=== PATIENT | female | born 1985 | race Caucasian/White ===

== ENCOUNTER 2018-05-20 01:51 | Emergency (ER) | payer MEDICAID, SELFPAY ==
[2018-05-20 01:55] VITALS: BP 133/98; PULSE 77; RESP 26; O2SAT 99
--- NOTE | 2018-05-20 02:23 | W.ED.GENAD ---
Discharge Plan Disposition Patient Disposition: HOME Condition: Good Discharge Details Chief Complaint: Headache Clinical Impression: Headache, migraine Primary Care Provider: German Campa ED Provider: Devonte Elizabeth Stanley Meds and New Rx's Prescriptions: Continue ropinirole 1 MG tablet 2 mg PO HS RF: 0 omeprazole 20 MG capsule,delayed release(DR/EC) 40 mg PO DAILY RF: 0 cyclobenzaprine 10 MG tablet 10 mg PO PRN PRNRF: 0 dicyclomine 20 MG tablet 20 mg PO QID PRN (Reason: Pain) Qty: 12 RF: 0 ondansetron 4 MG tablet,disintegrating 4 mg PO Q8H PRN (Reason: Nausea / Vomiting) Qty: 6 RF: 0 diphenhydramine HCl 25 MG capsule 25 mg PO Q6H PRN (Reason: Vomiting) Qty: 12 RF: 0 venlafaxine 150 MG capsule,extended release 24hr 150 mg PO BID RF: 0 gabapentin 300 MG capsule 600 mg PO .QHS Qty: 30 RF: 0 acetaminophen [Tylenol] 325 MG tablet 650 mg PO PRN PRNRF: 0 Discharge Instructions Additional Instructions: Go home and rest. Stay hydrated today. Follow-up with primary care as needed. Return to ED for neurologic change, persistent vomiting, worsening headache. Referrals: German Campa PA [Primary Care Provider] - Medical Decision Making Patient has typically responded to IM Phenergan and IM Toradol on previous presentations like this. test is obtained and is negative. Toradol and Phenergan ordered. Patient reevaluated and continues to complain of throbbing headache although reports nausea and vomiting better. She has had allergy to the triptans. Do not wish to use narcotics. Will place IV and give a liter of LR, IV Decadron, oral Tylenol and reevaluate again. Patient sleeping comfortably. When awoke she reports no headache. We will finish the bag of fluids and discharge her home. Medical Records Medical records reviewed: Yes I reviewed the patient's medical records. HPI General Mode of arrival: ambulatory. Date/Time Provider Initiated Documentation: 05/20/18 02:19. Limitations to Documentation: no limitations. Information obtained by: patient. HPI Narrative: Patient presents to ED with migraine headache. Patient has history of same. Onset was tonight and woke her up. Feels like all previous migraine headaches. It is associated with photophobia, nausea, vomiting. She has no neurologic changes. She did not take anything at home prior to coming in. She has not been ill prior to this. Related Data Home Medications Medication Instructions Recorded Confirmed omeprazole 40 mg PO DAILY 12/11/13 05/20/18 cyclobenzaprine 10 mg PO PRN PRN 06/05/15 05/20/18 ropinirole 2 mg PO HS 06/08/15 05/20/18 diphenhydramine HCl 25 mg PO Q6H PRN #12 cap 12/15/16 05/20/18 venlafaxine 150 mg PO BID 12/17/16 05/20/18 gabapentin 600 mg PO .QHS #30 capsule 12/18/16 05/20/18 acetaminophen [Tylenol] 650 mg PO PRN PRN 04/16/17 05/20/18 dicyclomine 20 mg PO QID PRN #12 tab 08/23/17 05/20/18 ondansetron 4 mg PO Q8H PRN #6 tabef 08/23/17 05/20/18 Previous Rx's Medication Instructions Recorded diphenhydramine HCl 25 mg PO Q6H PRN #12 cap 12/15/16 gabapentin 600 mg PO .QHS #30 capsule 12/18/16 dicyclomine 20 mg PO QID PRN #12 tab 08/23/17 ondansetron 4 mg PO Q8H PRN #6 tabef 08/23/17 Allergies Allergy/AdvReac Type Severity Reaction Status Date / Time Penicillins Allergy Severe Swelling Unverified 05/20/18 02:09 in throat granda flavor Allergy Intermediate throat Unverified 05/20/18 02:09 bleeds,swelling kiwi Allergy Intermediate throat Unverified 05/20/18 02:09 swells latex Allergy Mild rash,swelli Unverified 05/20/18 02:09 ng sumatriptan [From Imitrex] AdvReac Mild Headache Unverified 05/20/18 02:09 wool Allergy Mild Skin Rash Uncoded 05/20/18 02:09 General Stated Complaint: Headache IVAN: 3 Review of Systems Constitutional Denies chills, Denies fever(s), Reports headache(s) and Denies weakness Eyes Denies blurry vision, Denies change in vision and Reports photophobia ENT Reports headache(s) and Denies neck pain Cardiovascular Denies chest pain, Denies syncope, Denies palpitations and Denies dyspnea Respiratory Denies cough and Denies dyspnea Gastrointestinal Denies abdominal pain, Denies diarrhea, Reports nausea and Reports vomiting Musculoskeletal Denies abnormal gait, Denies back pain, Denies neck pain and Denies numbness Integumentary/Breasts Denies erythema and Denies rash Neurologic Denies abnormal speech, Denies abnormal gait, Denies syncope, Reports headache(s), Denies focal weakness, Denies numbness, Denies sensory deficit and Denies weakness Endocrine Denies palpitations [facility] Medical History Anxiety BMI 35.0-35.9,adult GERD (gastroesophageal reflux disease) Migraine Pelvic pain in female Restless leg syndrome Right ovarian cyst Social History Smoking/Tobacco Use Status: Current every day Surgical History Diagnostic Laproscopy EGD - MAC (12/16/16) Hysterectomy, Laproscopic (~11/2009) Oophrectomy, Right (06/09/15) R wrist cyst removal Tooth extraction Exam Const General: cooperative and in distress (vomiting and holding head) moderate Orientation: alert and oriented x3 HENMT Head: normocephalic and atraumatic Eyes Pupils: PERRL EOM: EOM intact bilaterally Neck Neck: normal visual inspection, full ROM, trachea midline and supple Resp Effort & Inspection: normal respiratory effort Cardio Rate: regular rate Rhythm: regular rhythm Heart Sounds: S1 normal and S2 normal Skin General skin exam: no rashes or lesions noted Neuro General: alert, oriented x3, no focal motor deficits and CN's II-XI intact bilaterally Sensory Exam: no sensory deficits noted Extrem General: normal to inspection, full ROM and no clubbing, cyanosis or edema Course Vital Signs Pulse 77 05/20/18 01:55 Respiratory Rate 26 H 05/20/18 01:55 Blood Pressure 133/98 H 05/20/18 01:55 Pulse Oximetry 99 05/20/18 01:55 Pulse 77 05/20/18 01:55 Respiratory Rate 26 H 05/20/18 01:55 Respiratory Effort Non-Labored 05/20/18 01:59 Blood Pressure 133/98 H 05/20/18 01:55 Blood Pressure Position Sitting 05/20/18 01:55 Pulse Oximetry 99 05/20/18 01:55 Oxygen Delivery Method Room Air 05/20/18 01:55 Oxygen Flow Rate 0 05/20/18 01:55 Pain Level 10 05/20/18 01:55 Lab/Test Results Lab/Test Results: POC Urine Test Start: 05/20/18 02:09 Freq: Status: Complete Protocol: Document 05/20/18 02:09 BREEZY (Rec: 05/20/18 02:09 [id number]) Test(Urine)-POC POC- Test(urine) Negative POC- Test(urine) Negative
[2018-05-20] MEDS: Ketorolac 60 MG/2 ML VIAL IM (02:29)
[2018-05-20] MEDS: Acetaminophen 500 MG TAB 1000 MG PO (03:53)
[2018-05-20] MEDS: Lactated Ringers 1,000 ML 1000 ML IV (03:53)
[2018-05-20] MEDS: Dexamethasone 10 MG/ML VIAL IVP (03:53)
[2018-05-20 05:31] VITALS: BP 130/95; PULSE 76; RESP 18; TEMP 36.5; O2SAT 97
== END 2018-05-20 05:32 | disposition home or self-care (01) ==
LOC: ER 05:40
PROVIDERS: Emergency Provider Emergency Medicine; PCP Physician Assistant Medical
DX: G43.909 Migraine, unspecified, not intractable, without status migrainosus (principal)
CPT/HCPCS: 81025; 96361; 96372; 96374; 99284; J1100; J1885

== ENCOUNTER 2018-10-01 17:01 | Emergency (ER) | payer MEDICAID, SELFPAY ==
[2018-10-01 17:04] VITALS: BP 138/88; PULSE 87; RESP 16; TEMP 36.9; O2SAT 97
--- NOTE | 2018-10-01 17:12 | W.ED.GENAD ---
Discharge Plan Disposition Patient Disposition: HOME Condition: Improving Discharge Details Chief Complaint: RashLesion Clinical Impression: Cellulitis of perineum Primary Care Provider: German Campa ED Provider: Everett Bray Home Meds and New Rx's Prescriptions: New clindamycin HCl 300 mg capsule 300 mg PO Q6H Qty: 28 RF: 0 Continued ropinirole 1 MG tablet 2 mg PO HS RF: 0 omeprazole 20 MG capsule,delayed release(DR/EC) 40 mg PO DAILY RF: 0 cyclobenzaprine 10 MG tablet 10 mg PO PRN PRNRF: 0 diphenhydramine HCl 25 MG capsule 25 mg PO Q6H PRN (Reason: Vomiting) Qty: 12 RF: 0 venlafaxine 150 MG capsule,extended release 24hr 150 mg PO BID RF: 0 gabapentin 300 MG capsule 600 mg PO .QHS Qty: 30 RF: 0 acetaminophen [Tylenol] 325 MG tablet 650 mg PO PRN PRNRF: 0 prochlorperazine maleate [Compazine] 10 mg Tablet 10 mg PO PRN PRNRF: 0 Discontinued sulfamethoxazole-trimethoprim [Bactrim DS] 800-160 mg Tablet 1 tab PO BID RF: 0 Discharge Instructions Instructions: Cellulitis (ED) Additional Instructions: I discussed your case this evening with Dr. Lou. we agree you should be seen for follow-up tomorrow unless you have significant improvement. Call the office in the morning [phone] for an appointment time. Please stop the Bactrim that was previously prescribed. Begin clindamycin with the next dose 6 hours after discharge from the ED. May apply heat to area for comfort and to speed healing. Return to emerge department if you have abdominal pain, vomiting, or any other acute concerns. Medical Decision Making 33-year-old female presents with right labia majora/perineal inflammation that has been refractive to 2 days of Bactrim. She is afebrile with normal vital signs. She has tenderness at the inferior portion of the right labia majora where it meets the beginning of her perineum. Cannot appreciate Bartholin's gland cyst and cannot rule out underlying deeper abscess versus cellulitis/folliculitis. Therefore patient IV access established, screening laboratories obtained, referred for CT imaging. Diagnostic studies reveal a normal white blood cell count, reassuring chemistries. CT reveals hazy density and stranding of of the right perineum. No evidence of abscess. Patient given parenteral abx (clindamycin gien PCN allergy). Case discussed with Dr Lou. I will switch the patient to Clindamycin orally. She is to call the [facility] office in the AM for a followup appointment tomorrow. Lab Data Lab results reviewed: Yes I reviewed the patient's lab results. Laboratory Results - last 24 hr 10/01/18 10/01/18 17:30 17:30 WBC 6.95 RBC 4.58 Hgb 14.0 Hct 41.8 MCV 91.3 MCH 30.6 MCHC 33.5 RDW 13.8 Plt Count 257 MPV 11.1 H Immature Gran % 0.1 Neutrophils % 66.9 Lymphocytes % 24.5 Monocytes % 7.5 Eosinophils % 0.4 Basophils % 0.6 Absolute Neutrophils 4.65 Absolute Lymphocytes 1.70 Absolute Monocytes 0.52 Absolute Eosinophils 0.03 Absolute Basophils 0.04 Sodium 139 Potassium 4.0 Chloride 102 Carbon Dioxide 26.8 Anion Gap 10.2 BUN 16 Creatinine 1.10 H Estimated GFR/1.73 m2 56.86 Glucose 102 H Calcium 8.7 Total Bilirubin 0.1 L AST 23 ALT 40 Alkaline Phosphatase 142 H Total Protein 7.4 Albumin 3.4 HPI General Mode of arrival: ambulatory. Date/Time Provider Initiated Documentation: 10/01/18 17:07. Limitations to Documentation: no limitations. Information obtained by: patient. History of Present Illness 33 year old F presents to the emergency department with the chief complaint of Abscess R buttock x2 days, on Bactrim, described as moderate, Quality is described as aching and dull, and is localized to the genitals and right. Patient reports no radiation. Patient started experiencing this day(s) and it has been constant. No relieving factors improve symptom(s), No exacerbating factors reported . Patient notes no other symptoms.. Patient did receive the following treatments prior to arrival, none Related Data Home Medications Medication Instructions Recorded Confirmed omeprazole 40 mg PO DAILY 12/11/13 10/01/18 cyclobenzaprine 10 mg PO PRN PRN 06/05/15 10/01/18 ropinirole 2 mg PO HS 06/08/15 10/01/18 diphenhydramine HCl 25 mg PO Q6H PRN #12 cap 12/15/16 10/01/18 venlafaxine 150 mg PO BID 12/17/16 10/01/18 gabapentin 600 mg PO .QHS #30 capsule 12/18/16 10/01/18 acetaminophen [Tylenol] 650 mg PO PRN PRN 04/16/17 10/01/18 clindamycin HCl 300 mg PO Q6H #28 cap 10/01/18 prochlorperazine maleate 10 mg PO PRN PRN 10/01/18 10/01/18 [Compazine] Previous Rx's Medication Instructions Recorded diphenhydramine HCl 25 mg PO Q6H PRN #12 cap 12/15/16 gabapentin 600 mg PO .QHS #30 capsule 12/18/16 clindamycin HCl 300 mg PO Q6H #28 cap 10/01/18 Allergies Allergy/AdvReac Type Severity Reaction Status Date / Time Penicillins Allergy Severe Swelling Unverified 05/20/18 02:09 in throat granda flavor Allergy Intermediate throat Unverified 05/20/18 02:09 bleeds,swelling kiwi Allergy Intermediate throat Unverified 05/20/18 02:09 swells latex Allergy Mild rash,swelli Unverified 05/20/18 02:09 ng naproxen AdvReac Intermediate Nausea Unverified 10/01/18 17:08 sumatriptan [From Imitrex] AdvReac Mild Headache Unverified 05/20/18 02:09 wool Allergy Mild Skin Rash Uncoded 05/20/18 02:09 General Stated Complaint: RashLesion IVAN: 4 Review of Systems Review of Systems 6 systems reviewed and otherwise negative. [facility] Medical History Anxiety BMI 35.0-35.9,adult GERD (gastroesophageal reflux disease) Migraine Pelvic pain in female Restless leg syndrome Right ovarian cyst Surgical History Diagnostic Laproscopy EGD - MAC (12/16/16) Hysterectomy, Laproscopic (~11/2009) Oophrectomy, Right (06/09/15) R wrist cyst removal Tooth extraction Social History Smoking and Tabacco status: Current every day Exam Narrative Exam Narrative: GEN: awake, alert, oriented 3. Pleasant, well groomed, interactive. HEAD: Normocephalic, atraumatic ENT: Mucous membranes moist, oropharynx unremarkable, External ear exam unremarkable EYES: PERRL, EOMI NECK: Full ROM, no KOSTAS, no menigismus CHEST/RESP: Nontender, clear to auscultation bilateral, no wheeze/rhonchi/rales CARDIOVASCULAR: RRR, no murmur, rub tammi. 2+ Rad pulse bilateral ABDOMEN: Soft, nontender, no mass. +Bowel sounds. [facility] exam reveals R inferior labia tenderness, no pointing fluctuance. EXT: Full ROM, no edema, no rash Neuro: Grossly normal neurologic exam, conversant, interactive. Psych: Speech fluent, thoughts congruent, affect normal Course Vital Signs Temperature 36.9 C 10/01/18 17:04 Pulse 87 10/01/18 17:04 Respiratory Rate 16 10/01/18 17:04 Blood Pressure 138/88 10/01/18 17:04 Pulse Oximetry 97 10/01/18 17:04 Temperature 36.9 C 10/01/18 17:04 Temperature Source Temporal Artery Scan 10/01/18 17:04 Pulse 87 10/01/18 17:04 Respiratory Rate 16 10/01/18 17:04 Respiratory Effort Non-Labored 10/01/18 17:06 Blood Pressure 138/88 10/01/18 17:04 Blood Pressure Position Sitting 10/01/18 17:04 Pulse Oximetry 97 10/01/18 17:04 Oxygen Delivery Method Room Air 10/01/18 17:04 Oxygen Flow Rate 0 10/01/18 17:04 Pain Level 8 10/01/18 17:04
--- NOTE | 2018-10-01 17:21 | DI.CT_ITS ---
SYMPTOMS/DIAGNOSIS: RT LABIA MAJORA AND PERINEUM PAIN AND SWELLING CT OF THE PELVIS: CT scan of the pelvis was performed following the uneventful administration of intravenous contrast material. Comparison is 09/25/17. The visualized bowel is unremarkable. There is a normal appendix. No evidence of bowel obstruction is seen. The patient appears to be status post hysterectomy. The urinary bladder is intact. No significant pelvic ascites or free air is seen. There are enlarged lymph nodes seen in the right inguinal region. The largest measures 2.8 x 0.8 cm. There is mild increased attenuation in the fat in the region of the right perineum. No focal fluid collection is seen to suggest an abscess. IMPRESSION: 1. Mild hazy density in the right perineal region. This is nonspecific but may be an infectious or inflammatory process. No abscess is seen. 2. Mildly enlarged lymph nodes in the right inguinal region.
[2018-10-01] MEDS: Ondansetron 4 MG/2 ML VIAL IVP ×2 (17:35→18:16)
[2018-10-01] MEDS: Lactated Ringers 1,000 ML 125 ML IV (17:35)
[2018-10-01] MEDS: Ketorolac 30 MG/ML VIAL IVP (17:40)
[2018-10-01 17:47] LABS: Abs Immature Grans 0.01 k/cumm (0.0-0.09); Absolute Basophil Count 0.04 k/cumm (0.0-0.2); Absolute Eosinophil Count 0.03 k/cumm (0.0-0.7); Absolute Monocyte Count 0.52 k/cumm (0.11-0.7); Absolute Neutrophil Count 4.65 k/cumm (1.2-6.7); Basophils % 0.6; Eosinophils % 0.4; HCT 41.8 % (36.0-46.0); Immature Grans % 0.1; Lymphocytes % 24.5; Mean Corp. HGB Concentration 33.5 g/dL (32.0-36.0); Mean Corpuscular Hemoglobin 30.6 pg (27.0-33.0); Mean Corpuscular Volume 91.3 fL (80-95); Mean Platelet Volume 11.1 fL (8.0-11.0); Monocytes % 7.5; Neutrophils % 66.9; Platelet Count 257 x1000/uL (130-400); RBC 4.58 m/cumm (4.00-5.20); RBC Distribution Width 13.8 % (11.7-14.6); White Blood Cell Count 6.95 k/cumm (4.4-10.8)
[2018-10-01 17:58] LABS: ALT 40 U/L (12-78); AST 23 U/L (15-37); Albumin 3.4 g/dL (3.4-5.0); Alkaline Phosphatase 142 U/L (46-116); Anion Gap 10.2 mmol/L (3-11); BUN 16 mg/dL (7-18); Bilirubin, Total 0.1 mg/dL (0.2-1.0); CO2 26.8 mmol/L (21.0-32.0); Calcium 8.7 mg/dL (8.5-10.1); Chloride 102 mmol/L (98-107); Estimated GFR 56.86 (mL/min/1.73m2); Glucose 102 mg/dL (70-100); Sodium 139 mmol/L (136-145); Total Protein 7.4 g/dL (6.4-8.2)
[2018-10-01] MEDS: Omnipaque 350 MG/ML 100 ML BTL IJ (17:59)
[2018-10-01] MEDS: HYDROmorphone 2 MG/ML VIAL 0.5 MG IVP (18:25)
--- NOTE | 2018-10-01 18:49 | DI.VRAD_ITS ---
EXAM: CT Pelvis With Contrast EXAM DATE/TIME: 10/01/2018 5:22 PM CLINICAL HISTORY: 33 years old, female; Pain; Vaginal pain; Prior surgery; Surgery date: 6+ months; Surgery type: Hysterectomy and left ovary removed in 2009. ; Patient HX: R labia majora, perineum pain and swelling. Pain x4 days, radiates into groin area. Lmp september of 2009. PT sts ? fever x2 days. TECHNIQUE: Axial computed tomography images of the pelvis with intravenous contrast. All CT scans at this facility use at least one of these dose optimization techniques: automated exposure control; mA and/or kV adjustment per patient size (includes targeted exams where dose is matched to clinical indication); or iterative reconstruction. Coronal and sagittal reformatted images were created and reviewed. CONTRAST: Contrast Material: 100 ml of omnipaque 350; Contrast Route: iv COMPARISON: CT ABD PELVIS WITH CONTRAST 09/25/2017 4:19 PM FINDINGS: Stomach and bowel: Visualized small bowel and colon are unremarkable. Appendix: No evidence of appendicitis. Bladder: Normal. No mass. Reproductive: Status post hysterectomy and right oophorectomy. The left adnexa is unremarkable. No adnexal mass. Intraperitoneal space: Unremarkable. No free air. No significant fluid collection. Lymph nodes: Mildly prominent right inguinal lymph nodes, nonspecific. Bones/joints: Unremarkable. No acute fracture. No dislocation. Soft tissues: Minimal hazy density and stranding of the subcutaneous fat just beneath the skin in the right perineum. This may be secondary to infectious or inflammatory change. No abscess. IMPRESSION: 1. Minimal hazy density and stranding of subcutaneous fat just deep the skin in the right perineum, nonspecific. 2. Mildly prominent right inguinal lymph nodes, nonspecific. Dictated and Authenticated by: Danis Daniel MD. Ordering:AMISH Floyd MD
[2018-10-01] MEDS: CLINDAMYCIN 600 MG/50 ML BAG 100 MG IVPB (19:19)
[2018-10-01] MEDS: Normal Saline Flush 10 ML SYR IVP (19:19)
[2018-10-01] MEDS: Clindamycin 300 MG CAP 600 MG PO (19:26)
[2018-10-01 19:51] VITALS: BP 120/79; PULSE 68; RESP 18; TEMP 36.7; O2SAT 96
== END 2018-10-01 19:58 | disposition home or self-care (01) ==
PROVIDERS: Emergency Provider Emergency Medicine; PCP Physician Assistant Medical
DX: L03.315 Cellulitis of perineum (principal)
CPT/HCPCS: 36415; 80053; 96361; 96365; 96375; 96376; 99285; 72193; 85025; 99284; J1885; J2405; J3490

== ENCOUNTER 2018-12-11 16:02 | Outpatient (REF) | payer MEDICAID, SELFPAY ==
[2018-12-11 20:04] LABS: Abs Immature Grans 0.01 k/cumm (0.0-0.09); Absolute Basophil Count 0.05 k/cumm (0.0-0.2); Absolute Eosinophil Count 0.07 k/cumm (0.0-0.7); Absolute Monocyte Count 0.46 k/cumm (0.11-0.7); Absolute Neutrophil Count 4.54 k/cumm (1.2-6.7); Basophils % 0.7; HCT 41.4 % (36.0-46.0); HGB 13.8 g/dL (12.0-15.5); Immature Grans % 0.1; Mean Corp. HGB Concentration 33.3 g/dL (32.0-36.0); Mean Corpuscular Hemoglobin 30.9 pg (27.0-33.0); Mean Corpuscular Volume 92.8 fL (80-95); Mean Platelet Volume 11.6 fL (8.0-11.0); Monocytes % 6.6; Neutrophils % 65.6; Platelet Count 252 x1000/uL (130-400); RBC 4.46 m/cumm (4.00-5.20); RBC Distribution Width 14.4 % (11.7-14.6); White Blood Cell Count 6.93 k/cumm (4.4-10.8)
[2018-12-11 20:38] LABS: ALT 38 U/L (12-78); AST 20 U/L (15-37); Albumin 3.6 g/dL (3.4-5.0); Alkaline Phosphatase 108 U/L (46-116); Anion Gap 10.5 mmol/L (3-11); BUN 12 mg/dL (7-18); Bilirubin, Total 0.3 mg/dL (0.2-1.0); CO2 25.5 mmol/L (21.0-32.0); Calcium 8.8 mg/dL (8.5-10.1); Chloride 103 mmol/L (98-107); Glucose 80 mg/dL (70-100); Lipase 64 U/L (73-393); Magnesium 1.9 mg/dL (1.8-2.4); Sodium 139 mmol/L (136-145); Total Protein 6.7 g/dL (6.4-8.2)
[2018-12-12 14:47] LABS: Amylase 40 U/L (25-115)
== END 2018-12-11 16:22 ==
LOC: NCHCN 16:02
PROVIDERS: PCP Physician Assistant Medical; Visit Provider Physician Assistant Medical
DX: R10.10 Upper abdominal pain, unspecified (principal); G25.81 Restless legs syndrome
CPT/HCPCS: 80053; 83690; 82150; 83735; 85025

== ENCOUNTER 2018-12-22 00:58 | Outpatient (CLI) | payer MEDICAID, SELFPAY ==
--- NOTE | 2018-12-22 09:10 | DI.US_ITS ---
SYMPTOM/DIAGNOSIS: UPPER ABD PAIN, R10.10 ABDOMEN ULTRASOUND: Comparison CT scan is 09/25/17. The aorta and IVC are unremarkable. The liver measures 18 cm. in length. No hepatic mass is present. The gallbladder is negative. There is no biliary ductal dilatation. The pancreas is unremarkable as are the spleen and kidneys. There is a 3.5 by 1.3 by 3.3 cm. area in the supraumbilical region isoechoic to the surrounding fat. No peristalsis is seen. No internal blood flow is present. IMPRESSION: 1. Mild hepatomegaly. 2. No evidence of cholelithiasis or biliary ductal dilatation. 3. 3.5 cm. subcutaneous mass-like region isoechoic to the adjacent subcutaneous fat in the supraumbilical region. This may represent lipoma or possible fat containing hernia. CT scan of the abdomen may be considered for further evaluation.
== END 2018-12-22 01:18 ==
PROVIDERS: PCP Physician Assistant Medical; Visit Provider Physician Assistant Medical
DX: R10.11 Right upper quadrant pain (principal); R16.0 Hepatomegaly, not elsewhere classified; R19.05 Periumbilic swelling, mass or lump
CPT/HCPCS: 76700

== ENCOUNTER 2019-03-11 17:34 | Emergency (ER) | payer MEDICAID, SELFPAY ==
[2019-03-11] VITALS (39 sets, daily range): BP systolic 119–143; BP diastolic 80–105; PULSE 53–80; RESP 20; TEMP 36.3; O2SAT 96–100
--- NOTE | 2019-03-11 17:43 | ED.GENADUL_ITS ---
Discharge Plan Disposition Patient Disposition: HOME Condition: Stable Discharge Details Chief Complaint: Abd Prob Clinical Impression: Abdominal pain, Hematuria, Breast nodule Primary Care Provider: German Campa ED Provider: Margaret Doyle Home Meds and New Rx's Prescriptions: Continued ropinirole 1 MG tablet 2 mg PO HS RF: 0 omeprazole 20 MG capsule,delayed release(DR/EC) 40 mg PO DAILY RF: 0 cyclobenzaprine 10 MG tablet 10 mg PO PRN PRNRF: 0 diphenhydramine HCl 25 MG capsule 25 mg PO Q6H PRN (Reason: Vomiting) Qty: 12 RF: 0 venlafaxine 150 MG capsule,extended release 24hr 150 mg PO BID RF: 0 gabapentin 300 MG capsule 600 mg PO .QHS Qty: 30 RF: 0 acetaminophen [Tylenol] 325 MG tablet 650 mg PO PRN PRNRF: 0 Discharge Instructions Instructions: Hematuria (ED), Abdominal Pain (ED) Additional Instructions: Please return immediately to the emergency department if you develop any new or worsening symptoms or if you become otherwise concerned. It is extremely important that you call as soon as possible to make an appointment to be seen in follow-up for this visit by your primary care doctor. In addition to follow-up for your abdominal pain, you were also noted to have blood in your urine and also a breast nodule on CT scan. Both of these findings will require outpatient follow-up. Stand Alone Forms: Work Release Referrals: German Campa PA [Primary Care Provider] - Discharge Data Discharge Date/Time-TO BE ENTERED AT DEPARTURE: 03/11/19 23:17 Medical Decision Making Estrella Oliver is a 34-year-old woman with a history of anxiety, bipolar disease, GERD, hernia repair, hysterectomy who presented to the emergency department with sudden onset upper abdominal pain after bending over. On exam patient is nontoxic-appearing but does appear uncomfortable. Abdominal exam with focal tender tenderness of the upper middle abdomen with light palpation. Concern for bowel obstruction, abdominal muscle pain, gastritis, pancreatitis, other. Exam/history is not consistent with ACS, sepsis, acute aortic pathology, mesenteric ischemia. Plan for screening labs, IV pain control, IV fluid hydration, likely CT abdomen pelvis. Labs nondiagnostic. CT shows abnormality of the colon wall, normal finding versus colitis. Patient's clinical presentation not consistent with colitis. Fat-containing umbilical hernia seen on prior. Exam/history is not consistent with incarcerated hernia at this time. Incidental findings of hematuria (urine culture sent, exam/history not consistent with UTI), left breast nodule. I discussed incidental findings with the patient and reports of outpatient follow- up for these. Patient reporting symptoms improved on reassessment appears comfortable, well and nontoxic. I had a lengthy discussion with the patient regarding return to emergency department precautions, home care, importance of outpatient follow-up. Patient verbalized understanding the plan was amenable. All questions were answered. Patient was discharged home with clear plan for outpatient follow-up. Medical Records Medical records reviewed: Yes I reviewed the patient's medical records. Imaging Data Radiologic Study: Attestation: I personally reviewed and interpreted this imaging study as follows: Radiologist's impression: EXAM: CT Abdomen and Pelvis With Contrast EXAM DATE/TIME: 03/11/2019 7:27 PM CLINICAL HISTORY: 34 years old, female; Abdominal pain; Generalized; Prior surgery; Surgery date: 6+ months; Surgery type: Hysterectomy, hernia repair; Additional info: Ventral hernia TECHNIQUE: Imaging protocol: Axial computed tomography images of the abdomen and pelvis with intravenous contrast. Coronal and sagittal reformatted images were created and reviewed. Radiation optimization: All CT scans at this facility use at least one of these dose optimization techniques: automated exposure control; mA and/or kV adjustment per patient size (includes targeted exams where dose is matched to clinical indication); or iterative reconstruction. Contrast material: [id number];Contrast volume: 100 ml;Contrast route: IV LAC 20G; COMPARISON: CT pelvic w 10/01/2018 5:48 PM . 09/25/2017 FINDINGS: Mediastinum: Gas in the distal esophagus which can be seen with reflux. Liver: Normal. No mass. Gallbladder and bile ducts: Normal. No calcified stones. No ductal dilation. Pancreas: Normal. No ductal dilation. Spleen: Normal. No splenomegaly. Adrenals: Normal. No mass. Kidneys and ureters: Normal. No hydronephrosis. Stomach and bowel: Heterogeneous contents in the stomach, favored to be related to ingested products. No obstruction. Moderate amount of stool in the colon which can be seen with constipation. The cecum is in the right upper quadrant which can be seen with wandering cecum. There is some wall prominence to the proximal ascending colon(series 4 image 47). Appendix: No evidence of appendicitis. Intraperitoneal space: Normal. No free air. No significant fluid collection. Vasculature: Normal. No abdominal aortic aneurysm. Lymph nodes: Normal. No enlarged lymph nodes. Bladder: Unremarkable as visualized. Reproductive: Uterus not identified. No large adnexal masses. Bones/joints: No acute fracture. No dislocation. Soft tissues: Small fat-containing umbilical hernia. There is some stranding within this hernia, similar to prior exam. Incompletely imaged asymmetric nodular density in the left breast, series 4 image 1. IMPRESSION: 1. No obstruction. Some wall prominence in the proximal ascending colon which may be related to underdistention but should be correlated with any concern for colitis. 2. Small fat-containing umbilical hernia. There is some stranding of the fat within this hernia. This is favored to be chronic as it was present on prior exam. However, correlation with any concern for incarceration suggested. 3. Incompletely imaged asymmetric nodular density in the left breast. This may be secondary to slice acquisition. If there is concern for nodule based on physical exam findings, non-emergent ultrasound could be considered. Other findings/details as above. Lab Data Lab results reviewed: Yes I reviewed the patient's lab results. 03/11/19 19:20 Urine - Reflex from Ua Urine Culture - Pending Laboratory Tests Range/Units 03/11/19 03/11/19 03/11/19 18:23 18:23 18:23 WBC (4.4-10.8) k/cumm 7.51 RBC (4.00-5.20) m/cumm 4.53 Hgb (12.0-15.5) g/dL 14.1 Hct (36.0-46.0) % 42.3 MCV (80-95) fL 93.4 MCH (27.0-33.0) pg 31.1 MCHC (32.0-36.0) g/dL 33.3 RDW (11.7-14.6) % 13.7 Plt Count (130-400) x1000/uL 240 MPV (8.0-11.0) fL 11.2 H Immature Gran % 0.1 Neutrophils % 62.8 Lymphocytes % 28.1 Monocytes % 6.5 Eosinophils % 1.7 Basophils % 0.8 Absolute Neutrophils (1.2-6.7) k/cumm 4.71 Absolute Lymphocytes (1.2-3.4) k/cumm 2.11 Absolute Monocytes (0.11-0.7) k/cumm 0.49 Absolute Eosinophils (0.0-0.7) k/cumm 0.13 Absolute Basophils (0.0-0.2) k/cumm 0.06 Sodium (136-145) mmol/L 142 Potassium (3.5-5.1) mmol/L 3.6 Chloride (98-107) mmol/L 106 Carbon Dioxide (21.0-32.0) mmol/L 26.3 Anion Gap (3-11) mmol/L 9.7 BUN (7-18) mg/dL 12 Creatinine (0.55-1.02) mg/dL 1.13 H Estimated GFR/1.73 m2 (mL/min/1.73m2) 54.80 Glucose (70-100) mg/dL 86 Lactate (0.6-1.4) mmol/L 1.1 Calcium (8.5-10.1) mg/dL 8.7 Total Bilirubin (0.2-1.0) mg/dL 0.2 AST (15-37) U/L 15 ALT (12-78) U/L 27 Alkaline Phosphatase (46-116) U/L 98 Total Protein (6.4-8.2) g/dL 6.9 Albumin (3.4-5.0) g/dL 3.3 L Urine Color (Yellow) Urine Clarity (Clear) Urine pH (5-8) Ur Specific [place] (1.005-1.025) Urine Protein (Negative) mg/dL Urine Ketones (Negative) mg/dL Urine Blood (Negative) Urine Nitrite (Negative) Urine Bilirubin (Negative) Urine Urobilinogen (Up TO 0.2) EU/dL Ur Leukocyte Esterase (Negative) Urine RBC (0-2) Urine WBC (0-5) HPF Ur Epithelial Cells (Negative) HPF Urine Crystals (Negative) HPF Urine Bacteria (Negative) HPF Urine Casts (Negative) LPF Urine Mucus (Negative) Urine Other (Negative) Ur Culture Indicated? Urine Glucose (Negative) mg/dL Range/Units 03/11/19 19:20 WBC (4.4-10.8) k/cumm RBC (4.00-5.20) m/cumm Hgb (12.0-15.5) g/dL Hct (36.0-46.0) % MCV (80-95) fL MCH (27.0-33.0) pg MCHC (32.0-36.0) g/dL RDW (11.7-14.6) % Plt Count (130-400) x1000/uL MPV (8.0-11.0) fL Immature Gran % Neutrophils % Lymphocytes % Monocytes % Eosinophils % Basophils % Absolute Neutrophils (1.2-6.7) k/cumm Absolute Lymphocytes (1.2-3.4) k/cumm Absolute Monocytes (0.11-0.7) k/cumm Absolute Eosinophils (0.0-0.7) k/cumm Absolute Basophils (0.0-0.2) k/cumm Sodium (136-145) mmol/L Potassium (3.5-5.1) mmol/L Chloride (98-107) mmol/L Carbon Dioxide (21.0-32.0) mmol/L Anion Gap (3-11) mmol/L BUN (7-18) mg/dL Creatinine (0.55-1.02) mg/dL Estimated GFR/1.73 m2 (mL/min/1.73m2) Glucose (70-100) mg/dL Lactate (0.6-1.4) mmol/L Calcium (8.5-10.1) mg/dL Total Bilirubin (0.2-1.0) mg/dL AST (15-37) U/L ALT (12-78) U/L Alkaline Phosphatase (46-116) U/L Total Protein (6.4-8.2) g/dL Albumin (3.4-5.0) g/dL Urine Color (Yellow) Yellow Urine Clarity (Clear) Clear Urine pH (5-8) 5.5 Ur Specific [place] (1.005-1.025) >= 1.030 H Urine Protein (Negative) mg/dL 30 H Urine Ketones (Negative) mg/dL Negative Urine Blood (Negative) Moderate H Urine Nitrite (Negative) Negative Urine Bilirubin (Negative) Negative Urine Urobilinogen (Up TO 0.2) EU/dL 1.0 H Ur Leukocyte Esterase (Negative) Trace H Urine RBC (0-2) 10-20 H Urine WBC (0-5) HPF 20-50 Ur Epithelial Cells (Negative) HPF Moderate Urine Crystals (Negative) HPF Negative Urine Bacteria (Negative) HPF Few Urine Casts (Negative) LPF Negative Urine Mucus (Negative) Negative Urine Other (Negative) Many transitional Ur Culture Indicated? Yes Urine Glucose (Negative) mg/dL Negative HPI General Mode of arrival: ambulatory . Date/Time Provider Initiated Documentation: 03/11/19 17:42 . Limitations to Documentation: no limitations . Information obtained by: patient, RN notes reviewed and old records reviewed . HPI Narrative: Estrella Oliver is a 34 y/o woman with h/o GERD, anemia, anxiety, bipolar presenting to the emergency department with abdominal pain. Patient reports that she has had increasing abdominal distention over the past month. Patient reports that she was bending over while at work today and felt a sudden pop in her middle upper abdomen. Patient reports that she has had severe pain since that time and she has vomited several times. Patient reports chronic constipation that is unchanged from baseline. She reports history of hernia repair in the past, hysterectomy. Patient reports that she was previously in her usual state of health. No recent illness. No recent travel. Previously was eating and drinking as usual. She denies any other pain, fever, cough, shortness of breath, numbness/weakness the extremities. Related Data Home Medications Medication Instructions Recorded Confirmed omeprazole 40 mg PO DAILY 12/11/13 03/11/19 cyclobenzaprine 10 mg PO PRN PRN 06/05/15 03/11/19 ropinirole 2 mg PO HS 06/08/15 03/11/19 diphenhydramine HCl 25 mg PO Q6H PRN #12 cap 12/15/16 03/11/19 venlafaxine 150 mg PO BID 12/17/16 03/11/19 gabapentin 600 mg PO .QHS #30 capsule 12/18/16 03/11/19 acetaminophen [Tylenol] 650 mg PO PRN PRN 04/16/17 03/11/19 Previous Rx's Medication Instructions Recorded diphenhydramine HCl 25 mg PO Q6H PRN #12 cap 12/15/16 gabapentin 600 mg PO .QHS #30 capsule 12/18/16 Allergies Allergy/AdvReac Type Severity Reaction Status Date / Time Penicillins Allergy Severe Swelling Unverified 03/11/19 17:40 in throat granda flavor Allergy Intermediate throat Unverified 03/11/19 17:40 bleeds,swelling kiwi Allergy Intermediate throat Unverified 03/11/19 17:40 swells latex Allergy Mild rash,swelli Unverified 03/11/19 17:40 ng naproxen AdvReac Intermediate Nausea Unverified 03/11/19 17:40 sumatriptan [From Imitrex] AdvReac Mild Headache Unverified 03/11/19 17:40 wool Allergy Mild Skin Rash Uncoded 03/11/19 17:40 General Stated Complaint: Abd Prob IVAN: 3 Review of Systems Review of Systems Constitutional: denies fevers Eyes: denies eye pain ENT: denies facial pain, dental pain, sore throat Cardiovascular: denies chest pain Respiratory: denies SOB, cough GI: denies diarrhea, reports abdominal pain, vomiting, constipation : denies flank pain MSK: denies back pain, neck pain, arthralgias, myalgias Skin: denies rash Neuro: denies headaches, numbness, weakness PFSH Medical History Anxiety BMI 35.0-35.9,adult GERD (gastroesophageal reflux disease) Migraine Pelvic pain in female Restless leg syndrome Right ovarian cyst Social History Smoking/Tobacco Use Status: Current every day Alcohol Intake: current Alcohol Intake frequency: a few times a week Drug use: Daily Substance use type: marijuana Do you feel safe at home: Yes Do you feel safe in your relationship?: Yes Exam Narrative Exam Narrative: Constitutional: well and [id number], appears uncomfortable, pleasant, conversing normally HENT: head atraumatic/normocephalic/normal inspection, mucous membranes moist Eyes: conjunctiva normal, sclera normal, pupils 3mm b/l Neck: no stridor, normal ROM, trachea midline Chest: normal inspection Resp: normal work of breathing, LCTAB Cardio: normal rate, normal rhythm, no murmur appreciated GI: abdomen soft, abdominal wall tender to palpation in the upper middle abdomen without overlying skin changes, abdomen otherwise nontender to palpation, non- distended, no mass Back: normal inspection, no rash Skin: warm, dry, normal color, no rash Neuro: alert, not altered, grossly non-focal, normal tone Ext: no edema Psych: normal mood, normal affect, normal behavior Course Vital Signs Temperature 36.3 C L 03/11/19 17:38 Pulse 80 03/11/19 17:38 Respiratory Rate 20 03/11/19 17:38 Blood Pressure 136/83 03/11/19 17:38 Pulse Oximetry 97 03/11/19 17:38 Temperature 36.3 C L 03/11/19 17:38 Temperature Source Temporal Artery Scan 03/11/19 17:38 Pulse 80 03/11/19 17:38 Respiratory Rate 20 03/11/19 17:38 Blood Pressure 136/83 03/11/19 17:38 Blood Pressure Position Sitting 03/11/19 17:38 Pulse Oximetry 97 03/11/19 17:38 Oxygen Delivery Method Room Air 03/11/19 17:38 Oxygen Flow Rate 0 03/11/19 17:38 Pain Level 10 03/11/19 17:38
[2019-03-11] MEDS: Normal Saline 1,000 ML 1000 ML IV ×2 (18:23→20:00)
[2019-03-11] MEDS: Ondansetron 4 MG/2 ML VIAL IVP ×2 (18:27→20:00)
[2019-03-11 18:33] LABS: Abs Immature Grans 0.01 k/cumm (0.0-0.09); Absolute Basophil Count 0.06 k/cumm (0.0-0.2); Absolute Eosinophil Count 0.13 k/cumm (0.0-0.7); Absolute Lymphocyte Count 2.11 k/cumm (1.2-3.4); Absolute Monocyte Count 0.49 k/cumm (0.11-0.7); Absolute Neutrophil Count 4.71 k/cumm (1.2-6.7); Basophils % 0.8; Eosinophils % 1.7; HCT 42.3 % (36.0-46.0); HGB 14.1 g/dL (12.0-15.5); Immature Grans % 0.1; Lymphocytes % 28.1; Mean Corp. HGB Concentration 33.3 g/dL (32.0-36.0); Mean Corpuscular Hemoglobin 31.1 pg (27.0-33.0); Mean Corpuscular Volume 93.4 fL (80-95); Mean Platelet Volume 11.2 fL (8.0-11.0); Monocytes % 6.5; Neutrophils % 62.8; Platelet Count 240 x1000/uL (130-400); RBC 4.53 m/cumm (4.00-5.20); RBC Distribution Width 13.7 % (11.7-14.6); White Blood Cell Count 7.51 k/cumm (4.4-10.8)
[2019-03-11 18:35] LABS: Lactate 1.1 mmol/L (0.6-1.4)
[2019-03-11 19:00] LABS: ALT 27 U/L (12-78); AST 15 U/L (15-37); Albumin 3.3 g/dL (3.4-5.0); Alkaline Phosphatase 98 U/L (46-116); BUN 12 mg/dL (7-18); Bilirubin, Total 0.2 mg/dL (0.2-1.0); CO2 26.3 mmol/L (21.0-32.0); CREATININE 1.13 mg/dL (0.55-1.02); Calcium 8.7 mg/dL (8.5-10.1); Chloride 106 mmol/L (98-107); Glucose 86 mg/dL (70-100); Potassium 3.6 mmol/L (3.5-5.1); Total Protein 6.9 g/dL (6.4-8.2)
--- NOTE | 2019-03-11 19:26 | DI.CT_ITS ---
SYMPTOM/DIAGNOSIS: VENTRAL HERNIA, ABDOMINAL PAIN ABDOMINAL AND PELVIC CT: 03/11 CT examination of the abdomen and pelvis was performed with a bolus infusion of 100 cc omnipaque 350 and ingestion of dilute Barium. Note is made of asymmetric radiodensity in the left breast. Mammography recommended for further evaluation. Visualized lungs are clear. Liver, spleen and pancreas appear normal. Gallbladder and bile ducts are normal. Adrenals and kidneys are normal. Abdominal aorta and major vessels are unremarkable in appearance. Small fat containing umbilical hernia noted. Appendix is normal. No bowel obstruction or diverticulitis. Question subtle wall thickening of portion of ascending colon, colitis not excluded. CONCLUSION: 1. Incidental left breast finding, mammography recommended for further evaluation. 2. Question localized wall thickening of portion of ascending colon, colitis not excluded. 3. Umbilical hernia, no bowel contents or evidence of significant inflammation.
[2019-03-11 19:29] LABS: Bilirubin Negative (Negative); Blood Moderate (Negative); Clarity Clear (Clear); Glucose Negative (Negative); Ketones Negative (Negative); Leukocyte Esterase Trace (Negative); Nitrite Negative (Negative); Specific Gravity >= 1.030 (1.005-1.025); pH 5.5 (5-8)
[2019-03-11 19:38] LABS: WBC 20-50 HPF (0-5)
[2019-03-11 19:39] LABS: Bacteria Few HPF (Negative); C & S Indicated? Yes; Casts Negative LPF (Negative); Crystals Negative HPF (Negative); Epithelial Cells Moderate HPF (Negative); Mucus Negative (Negative)
[2019-03-11] MEDS: Omnipaque 350 MG/ML 50 ML BTL IJ (19:49)
[2019-03-11 21:15] LABS: Anion Gap 9.7 mmol/L (3-11)
[2019-03-11] MEDS: Omnipaque 350 MG/ML 100 ML BTL IJ (21:17)
--- NOTE | 2019-03-11 22:42 | DI.VRAD_ITS ---
EXAM: CT Abdomen and Pelvis With Contrast EXAM DATE/TIME: 03/11/2019 7:27 PM CLINICAL HISTORY: 34 years old, female; Abdominal pain; Generalized; Prior surgery; Surgery date: 6+ months; Surgery type: Hysterectomy, hernia repair; Additional info: Ventral hernia TECHNIQUE: Imaging protocol: Axial computed tomography images of the abdomen and pelvis with intravenous contrast. Coronal and sagittal reformatted images were created and reviewed. Radiation optimization: All CT scans at this facility use at least one of these dose optimization techniques: automated exposure control; mA and/or kV adjustment per patient size (includes targeted exams where dose is matched to clinical indication); or iterative reconstruction. Contrast material: [id number];Contrast volume: 100 ml;Contrast route: IV LAC 20G; COMPARISON: CT pelvic w 10/01/2018 5:48 PM . 09/25/2017 FINDINGS: Mediastinum: Gas in the distal esophagus which can be seen with reflux. Liver: Normal. No mass. Gallbladder and bile ducts: Normal. No calcified stones. No ductal dilation. Pancreas: Normal. No ductal dilation. Spleen: Normal. No splenomegaly. Adrenals: Normal. No mass. Kidneys and ureters: Normal. No hydronephrosis. Stomach and bowel: Heterogeneous contents in the stomach, favored to be related to ingested products. No obstruction. Moderate amount of stool in the colon which can be seen with constipation. The cecum is in the right upper quadrant which can be seen with wandering cecum. There is some wall prominence to the proximal ascending colon(series 4 image 47). Appendix: No evidence of appendicitis. Intraperitoneal space: Normal. No free air. No significant fluid collection. Vasculature: Normal. No abdominal aortic aneurysm. Lymph nodes: Normal. No enlarged lymph nodes. Bladder: Unremarkable as visualized. Reproductive: Uterus not identified. No large adnexal masses. Bones/joints: No acute fracture. No dislocation. Soft tissues: Small fat-containing umbilical hernia. There is some stranding within this hernia, similar to prior exam. Incompletely imaged asymmetric nodular density in the left breast, series 4 image 1. IMPRESSION: 1. No obstruction. Some wall prominence in the proximal ascending colon which may be related to underdistention but should be correlated with any concern for colitis. 2. Small fat-containing umbilical hernia. There is some stranding of the fat within this hernia. This is favored to be chronic as it was present on prior exam. However, correlation with any concern for incarceration suggested. 3. Incompletely imaged asymmetric nodular density in the left breast. This may be secondary to slice acquisition. If there is concern for nodule based on physical exam findings, non-emergent ultrasound could be considered. Other findings/details as above. Dictated and Authenticated by: Estrella Vargas MD. Ordering:PETER Robles MD
[2019-04-09 12:43] LABS: Sodium 142 mmol/L (136-145)
== END 2019-03-11 23:17 | disposition home or self-care (01) ==
PROVIDERS: Emergency Provider Student in an Organized Health Care Education/Training Program; PCP Physician Assistant Medical
DX: R10.33 Periumbilical pain (principal); R31.9 Hematuria, unspecified; N63.20 Unspecified lump in the left breast, unspecified quadrant; R11.2 Nausea with vomiting, unspecified
CPT/HCPCS: 36415; 80053; 87077; 96361; 96374; 96375; 96376; 99285; 74177; 81003; 81015; 83605; 85025; 87086; 99284; J2405; J3490; Q9967

== ENCOUNTER 2019-03-16 10:38 | Emergency (ER) | payer MEDICAID, SELFPAY ==
[2019-03-16 10:43] VITALS: BP 135/83; PULSE 101; RESP 18; TEMP 36.5; O2SAT 96
[2019-03-16] MEDS: Normal Saline 1,000 ML 1000 ML IV (10:55)
[2019-03-16] MEDS: Ondansetron O.D.T. 4 MG TABEF PO (11:05)
[2019-03-16 11:07] LABS: Abs Immature Grans 0.01 k/cumm (0.0-0.09); Absolute Basophil Count 0.06 k/cumm (0.0-0.2); Absolute Eosinophil Count 0.11 k/cumm (0.0-0.7); Absolute Monocyte Count 0.41 k/cumm (0.11-0.7); Basophils % 0.9; Eosinophils % 1.7; HCT 46.1 % (36.0-46.0); HGB 15.4 g/dL (12.0-15.5); Immature Grans % 0.2; Lymphocytes % 26.2; Mean Corp. HGB Concentration 33.4 g/dL (32.0-36.0); Mean Corpuscular Hemoglobin 30.9 pg (27.0-33.0); Mean Corpuscular Volume 92.6 fL (80-95); Mean Platelet Volume 11.4 fL (8.0-11.0); Monocytes % 6.3; Neutrophils % 64.7; Platelet Count 262 x1000/uL (130-400); RBC 4.98 m/cumm (4.00-5.20); RBC Distribution Width 13.8 % (11.7-14.6); White Blood Cell Count 6.49 k/cumm (4.4-10.8)
[2019-03-16 11:20] LABS: ALT 66 U/L (12-78); AST 26 U/L (15-37); Albumin 3.6 g/dL (3.4-5.0); Alkaline Phosphatase 119 U/L (46-116); Anion Gap 9.8 mmol/L (3-11); BUN 12 mg/dL (7-18); Bilirubin, Total 0.4 mg/dL (0.2-1.0); CO2 25.2 mmol/L (21.0-32.0); CREATININE 0.97 mg/dL (0.55-1.02); Calcium 8.8 mg/dL (8.5-10.1); Chloride 106 mmol/L (98-107); Glucose 108 mg/dL (70-100); Lipase 62 U/L (73-393); Potassium 3.7 mmol/L (3.5-5.1); Sodium 141 mmol/L (136-145); Total Protein 7.5 g/dL (6.4-8.2)
--- NOTE | 2019-03-16 11:26 | DI.CT_ITS ---
SYMPTOMS/DIAGNOSIS: ABDOMINAL PAIN, UMBILICAL, AND RIGHT LOWER QUADRANT TENDER ABDOMINAL AND PELVIC CT: CT examination of the abdomen and pelvis was performed with a bolus infusion of 100 cc of Omnipaque 350. Images obtained through the lung bases are unremarkable. The liver, spleen and pancreas appear normal. Note is made of an apparent Phrygian cap of the gallbladder. No cholelithiasis by CT criteria. No biliary dilatation. Abdominal aorta is of normal diameter and no major vascular abnormality is seen. No abdominal or pelvic adenopathy. No significant abdominal wall hernia. Normal appearance of the appendix. No evidence of diverticulitis or bowel obstruction. Adrenals and kidneys appear normal. There is no evidence of urinary tract obstruction or calcification. Urinary bladder is essentially empty and cannot be evaluated. A tiny fat-containing umbilical hernia noted. Probable prior hysterectomy. CONCLUSION: No evidence of acute intraabdominal process.
[2019-03-16 11:27] VITALS: BP 126/86; PULSE 70; TEMP 36.7; O2SAT 97
[2019-03-16 11:40] LABS: Lactate 0.7 mmol/L (0.6-1.4)
[2019-03-16 11:55] LABS: Bilirubin Small (Negative); Blood Small (Negative); Clarity Sl Cloudy (Clear); Glucose Negative (Negative); Ketones 15 mg/dL (Negative); Leukocyte Esterase Moderate (Negative); Nitrite Negative (Negative)
[2019-03-16 12:04] LABS: Bacteria Many HPF (Negative); C & S Indicated? No/Sq. Contamination; Casts Negative LPF (Negative); Crystals Negative HPF (Negative); Epithelial Cells Many HPF (Negative); Mucus Negative (Negative); RBC >50 (0-2); WBC >50 HPF (0-5)
[2019-03-16 12:11] LABS: Magnesium 1.9 mg/dL (1.8-2.4)
[2019-03-16] MEDS: Omnipaque 350 MG/ML 100 ML BTL IJ (14:08)
--- NOTE | 2019-03-16 14:16 | W.ED.GENAD ---
Discharge Plan Disposition Patient Disposition: HOME Discharge Details Chief Complaint: Nausea/Vomit/Diar Primary Care Provider: German Campa ED Provider: Ismael Blackmon Home Meds and New Rx's Prescriptions: New prochlorperazine maleate [Compazine] 10 mg tablet 10 mg PO TID PRN (Reason: nausea and vomiting) Qty: 20 RF: 0 Continued ropinirole 1 MG tablet 2 mg PO HS RF: 0 cyclobenzaprine 10 MG tablet 10 mg PO PRN PRNRF: 0 omeprazole 20 MG capsule,delayed release(DR/EC) 40 mg PO DAILY Qty: 30 RF: 0 diphenhydramine HCl 25 MG capsule 25 mg PO Q6H PRN (Reason: Vomiting) Qty: 12 RF: 0 venlafaxine 150 MG capsule,extended release 24hr 150 mg PO BID RF: 0 gabapentin 300 MG capsule 600 mg PO .QHS Qty: 30 RF: 0 acetaminophen [Tylenol] 325 MG tablet 650 mg PO PRN PRNRF: 0 Discharge Data Discharge Date/Time-TO BE ENTERED AT DEPARTURE: 03/16/19 14:51 Medical Decision Making Patient presenting the emergency department for chief complaint of abdominal pain, nausea and vomiting. Patient states since Friday she has not been able to tolerate any p.o. intake of food or fluids. Patient does state history of umbilical hernia physical exam shows tenderness to the periumbilical region along with the right lower quadrant significant guarding. Patient is having retching in the ER without any productive vomit. Plan to check labs, CT imaging urinalysis. Pending results patient given morphine, Zofran, and IV fluids. Review of labs show no leukocytosis and otherwise nondiagnostic, unremarkable CMP, negative lipase, within normal limits lactate, contaminated urinalysis with many epithelial cells, moderate leukocyte esterase, negative nitrates. Reassessed patient who continues to deny any urinary symptoms so I feel this is truly a contaminated specimen the patient does not need antibiotics. Patient continues to state some nausea so Phenergan ordered. Review of CT imaging with radiologist shows no acute signs of appendicitis, small umbilical fat hernia, otherwise no other acute findings noted. Patient reassessed and is no longer had any retching. Given that patient has reassuring labs and CT imaging I feel the patient is able to be safely discharged home. Patient was placed upon follow-up list for follow-up with general surgery for her umbilical fat hernia. Return precautions were discussed. Patient prescribed Compazine due to her stating that this helps mostly with her nausea and otherwise I feel that she can use qrov-ovm-resaxax pain medication as needed. Patient did state that she was off of her medications due to not having insurance but omeprazole was represcribed as this may be contributing to her abdominal pain but I do not feel this is emergent to further evaluate. After discussion of diagnosis and plan of care patient has no further needs, questions, or concerns and states clear understanding to return to the emergency department for any worsening symptoms. HPI General Mode of arrival: ambulatory. Date/Time Provider Initiated Documentation: 03/16/19 10:46. Limitations to Documentation: no limitations. Information obtained by: patient and RN notes reviewed. History of Present Illness 34 year old F presents to the emergency department with the chief complaint of Abdominal pain nausea vomiting, described as severe and similar to prior episodes, with intensity rated at 10. Quality is described as sharp, and is localized to the abdomen. Patient started experiencing this day(s) (3) and it has been constant. No relieving factors improve symptom(s), No exacerbating factors reported . Patient did receive the following treatments prior to arrival, none Related Data Home Medications Medication Instructions Recorded Confirmed cyclobenzaprine 10 mg PO PRN PRN 06/05/15 03/16/19 ropinirole 2 mg PO HS 06/08/15 03/16/19 diphenhydramine HCl 25 mg PO Q6H PRN #12 cap 12/15/16 03/16/19 venlafaxine 150 mg PO BID 12/17/16 03/16/19 gabapentin 600 mg PO .QHS #30 capsule 12/18/16 03/16/19 acetaminophen [Tylenol] 650 mg PO PRN PRN 04/16/17 03/16/19 omeprazole 40 mg PO DAILY #30 cap 03/16/19 prochlorperazine maleate 10 mg PO TID PRN #20 tab 03/16/19 [Compazine] Previous Rx's Medication Instructions Recorded diphenhydramine HCl 25 mg PO Q6H PRN #12 cap 12/15/16 gabapentin 600 mg PO .QHS #30 capsule 12/18/16 omeprazole 40 mg PO DAILY #30 cap 03/16/19 prochlorperazine maleate 10 mg PO TID PRN #20 tab 03/16/19 [Compazine] Allergies Allergy/AdvReac Type Severity Reaction Status Date / Time Penicillins Allergy Severe Swelling Unverified 03/16/19 11:07 in throat granda flavor Allergy Intermediate throat Unverified 03/16/19 11:07 bleeds,swelling kiwi Allergy Intermediate throat Unverified 03/16/19 11:07 swells latex Allergy Mild rash,swelli Unverified 03/16/19 11:07 ng naproxen AdvReac Intermediate Nausea Unverified 03/16/19 11:07 sumatriptan [From Imitrex] AdvReac Mild Headache Unverified 03/16/19 11:07 wool Allergy Mild Skin Rash Uncoded 03/16/19 11:07 General Stated Complaint: Nausea/Vomit/Diar IVAN: 3 Review of Systems Constitutional Reports chills, Denies fever(s) and Reports poor appetite Cardiovascular Denies chest pain and Denies dyspnea Respiratory Denies cough and Denies dyspnea Gastrointestinal Reports as per HPI, Reports abdominal pain, Denies melena, Denies change in bowel habits, Denies constipation, Denies diarrhea, Reports nausea and Reports vomiting Genitourinary Denies hematuria, Denies dysuria, Denies urinary incontinence and Denies urinary urgency Integumentary/Breasts Denies rash PFSH Medical History Anxiety BMI 35.0-35.9,adult GERD (gastroesophageal reflux disease) Migraine Pelvic pain in female Restless leg syndrome Right ovarian cyst Surgical History Diagnostic Laproscopy EGD - MAC (12/16/16) Hysterectomy, Laproscopic (~11/2009) Oophrectomy, Right (06/09/15) R wrist cyst removal Tooth extraction Social History Smoking/Tobacco Use Status: Current every day Alcohol Intake: current Alcohol Intake frequency: a few times a week Drug use: Daily Substance use type: marijuana Do you feel safe at home: Yes Do you feel safe in your relationship?: Yes Exam Const General: cooperative Orientation: alert, awake and oriented x3 Resp Effort & Inspection: normal respiratory effort and able to speak in complete sentences Auscultation: clear to auscultation bilaterally Cardio Rate: regular rate Rhythm: regular rhythm Heart Sounds: S1 normal and S2 normal GI Palpation: soft, no hepatosplenomegaly, not firm, no guarding, no masses, no pulsatile masses, not rigid, no splenomegaly and tender at McBurney's point and periumbilically; Rivera's sign negative, psoas sign negative and Rovsing's sign negative Auscultation: normal bowel sounds Back/Spine/Pelvis Back: no CVA tenderness Neuro General: alert, awake, oriented x3, gait normal and moves all extremities Course Vital Signs Temperature 36.5 C 03/16/19 10:43 Pulse 101 H 03/16/19 10:43 Respiratory Rate 18 03/16/19 10:43 Blood Pressure 135/83 03/16/19 10:43 Pulse Oximetry 96 03/16/19 10:43 Temperature 36.7 C 03/16/19 11:27 Temperature Source Temporal Artery Scan 03/16/19 10:43 Pulse 70 03/16/19 11:27 Respiratory Rate 18 03/16/19 10:43 Respiratory Effort Non-Labored 03/16/19 10:59 Blood Pressure 126/86 03/16/19 11:27 Blood Pressure Position Supine 03/16/19 10:43 Pulse Oximetry 97 03/16/19 11:27 Oxygen Delivery Method Room Air 03/16/19 11:27 Oxygen Flow Rate 0 03/16/19 11:27 Pain Level 10 03/16/19 11:41 Lab/Test Results Lab/Test Results: Laboratory Tests Range/Units 03/16/19 03/16/19 03/16/19 10:55 10:55 11:35 WBC (4.4-10.8) k/cumm 6.49 RBC (4.00-5.20) m/cumm 4.98 Hgb (12.0-15.5) g/dL 15.4 Hct (36.0-46.0) % 46.1 H MCV (80-95) fL 92.6 MCH (27.0-33.0) pg 30.9 MCHC (32.0-36.0) g/dL 33.4 RDW (11.7-14.6) % 13.8 Plt Count (130-400) x1000/uL 262 MPV (8.0-11.0) fL 11.4 H Immature Gran % 0.2 Neutrophils % 64.7 Lymphocytes % 26.2 Monocytes % 6.3 Eosinophils % 1.7 Basophils % 0.9 Absolute Neutrophils (1.2-6.7) k/cumm 4.20 Absolute Lymphocytes (1.2-3.4) k/cumm 1.70 Absolute Monocytes (0.11-0.7) k/cumm 0.41 Absolute Eosinophils (0.0-0.7) k/cumm 0.11 Absolute Basophils (0.0-0.2) k/cumm 0.06 Sodium (136-145) mmol/L 141 Potassium (3.5-5.1) mmol/L 3.7 Chloride (98-107) mmol/L 106 Carbon Dioxide (21.0-32.0) mmol/L 25.2 Anion Gap (3-11) mmol/L 9.8 BUN (7-18) mg/dL 12 Creatinine (0.55-1.02) mg/dL 0.97 Estimated GFR/1.73 m2 (mL/min/1.73m2) >= 60.00 Glucose (70-100) mg/dL 108 H Lactate (0.6-1.4) mmol/L Calcium (8.5-10.1) mg/dL 8.8 Magnesium (1.8-2.4) mg/dL 1.9 Total Bilirubin (0.2-1.0) mg/dL 0.4 AST (15-37) U/L 26 ALT (12-78) U/L 66 Alkaline Phosphatase (46-116) U/L 119 H Total Protein (6.4-8.2) g/dL 7.5 Albumin (3.4-5.0) g/dL 3.6 Lipase (73-393) U/L 62 L Urine Color (Yellow) Urine Clarity (Clear) Urine pH (5-8) Ur Specific [place] (1.005-1.025) Urine Protein (Negative) mg/dL Urine Ketones (Negative) mg/dL Urine Blood (Negative) Urine Nitrite (Negative) Urine Bilirubin (Negative) Urine Urobilinogen (Up TO 0.2) EU/dL Ur Leukocyte Esterase (Negative) Urine RBC (0-2) Urine WBC (0-5) HPF Ur Epithelial Cells (Negative) HPF Urine Crystals (Negative) HPF Urine Bacteria (Negative) HPF Urine Casts (Negative) LPF Urine Mucus (Negative) Ur Culture Indicated? Urine Glucose (Negative) mg/dL Range/Units 03/16/19 03/16/19 11:35 11:48 WBC (4.4-10.8) k/cumm RBC (4.00-5.20) m/cumm Hgb (12.0-15.5) g/dL Hct (36.0-46.0) % MCV (80-95) fL MCH (27.0-33.0) pg MCHC (32.0-36.0) g/dL RDW (11.7-14.6) % Plt Count (130-400) x1000/uL MPV (8.0-11.0) fL Immature Gran % Neutrophils % Lymphocytes % Monocytes % Eosinophils % Basophils % Absolute Neutrophils (1.2-6.7) k/cumm Absolute Lymphocytes (1.2-3.4) k/cumm Absolute Monocytes (0.11-0.7) k/cumm Absolute Eosinophils (0.0-0.7) k/cumm Absolute Basophils (0.0-0.2) k/cumm Sodium (136-145) mmol/L Potassium (3.5-5.1) mmol/L Chloride (98-107) mmol/L Carbon Dioxide (21.0-32.0) mmol/L Anion Gap (3-11) mmol/L BUN (7-18) mg/dL Creatinine (0.55-1.02) mg/dL Estimated GFR/1.73 m2 (mL/min/1.73m2) Glucose (70-100) mg/dL Lactate (0.6-1.4) mmol/L 0.7 Calcium (8.5-10.1) mg/dL Magnesium (1.8-2.4) mg/dL Total Bilirubin (0.2-1.0) mg/dL AST (15-37) U/L ALT (12-78) U/L Alkaline Phosphatase (46-116) U/L Total Protein (6.4-8.2) g/dL Albumin (3.4-5.0) g/dL Lipase (73-393) U/L Urine Color (Yellow) Yellow Urine Clarity (Clear) Sl cloudy Urine pH (5-8) 6.0 Ur Specific [place] (1.005-1.025) 1.020 Urine Protein (Negative) mg/dL 30 H Urine Ketones (Negative) mg/dL 15 H Urine Blood (Negative) Small H Urine Nitrite (Negative) Negative Urine Bilirubin (Negative) Small H Urine Urobilinogen (Up TO 0.2) EU/dL 1.0 H Ur Leukocyte Esterase (Negative) Moderate H Urine RBC (0-2) >50 H Urine WBC (0-5) HPF >50 Ur Epithelial Cells (Negative) HPF Many Urine Crystals (Negative) HPF Negative Urine Bacteria (Negative) HPF Many Urine Casts (Negative) LPF Negative Urine Mucus (Negative) Negative Ur Culture Indicated? No/sq. contamination Urine Glucose (Negative) mg/dL Negative
[2019-03-16 14:26] VITALS: BP 132/91; PULSE 68; TEMP 36.6; O2SAT 99
[2019-03-16 14:51] VITALS: BP 132/86; PULSE 72; RESP 16; TEMP 36.9; O2SAT 99
--- NOTE | 2019-03-16 18:30 | NUR.NOTE ---
Nursing Note: Referral faxed to General Surgery for follow up. Michelle Geiger.
== END 2019-03-16 14:51 | disposition home or self-care (01) ==
PROVIDERS: Emergency Provider Nurse Practitioner Family; PCP Physician Assistant Medical
DX: R11.2 Nausea with vomiting, unspecified (principal); K42.9 Umbilical hernia without obstruction or gangrene
CPT/HCPCS: 36415; 80053; 83690; 96361; 96365; 96375; 99285; 74177; 81003; 81015; 83605; 83735; 85025; 99284; J3490

== ENCOUNTER 2019-04-24 04:30 | Emergency (ER) | payer MEDICAID, SELFPAY ==
[2019-04-24 04:34] VITALS: BP 149/104; PULSE 84; RESP 22; TEMP 36.9; O2SAT 98
--- NOTE | 2019-04-24 04:45 | ED.GENADUL_ITS ---
Discharge Plan Disposition Patient Disposition: HOME Condition: Good Discharge Details Chief Complaint: Headache Clinical Impression: Headache Primary Care Provider: German Campa ED Provider: Doni Ball Home Meds and New Rx's Prescriptions: No Action ropinirole 1 MG tablet 2 mg PO HS RF: 0 cyclobenzaprine 10 MG tablet 10 mg PO PRN PRNRF: 0 prochlorperazine maleate [Compazine] 10 mg tablet 10 mg PO TID PRN (Reason: nausea and vomiting) Qty: 20 RF: 0 omeprazole 20 MG capsule,delayed release(DR/EC) 40 mg PO DAILY Qty: 30 RF: 0 diphenhydramine HCl 25 MG capsule 25 mg PO Q6H PRN (Reason: Vomiting) Qty: 12 RF: 0 venlafaxine 150 MG capsule,extended release 24hr 150 mg PO BID RF: 0 gabapentin 300 MG capsule 600 mg PO .QHS Qty: 30 RF: 0 acetaminophen [Tylenol] 325 MG tablet 650 mg PO PRN PRNRF: 0 Discharge Instructions Instructions: General Headache (ED) Additional Instructions: At this time your CT scan shows no evidence of bleed or tumor. Although meningitis is extremely unlikely in this current scenario if you do not have resolution of your symptoms or at any point develop fever or chills please return immediately for the procedure we discussed. Please drink plenty fluids and get plenty of sleep. If you notice any worsening of your symptoms, or any new symptoms such as vomiting, diarrhea, fever, chills, shortness of breath, chest pain, numbness, weakness, or fainting , please return immediately to the emergency department for reevaluation. Please follow up with your primary care provider as soon as possible for reassessment and reevaluation. As always, it was a pleasure participating in your medical care today. Referrals: German Campa PA [Primary Care Provider] - Medical Decision Making This is a 34-year-old female with a past medical history of migraines who presents today for evaluation of headache. She woke roughly 4 hours ago from sleep with this headache. It is not the worst headache of her life. She states that it feels identical to previous headaches. She describes it as pressure sensation in her head. She is not on control, she has had a hysterectomy. She does admit to mild vomiting but denies any diarrhea, fever, chills. She does have some mild neck achiness which is been present over the last few days which she attributes to stress. Physical exam demonstrates negative Kernig's and Brudzinski's. No nuchal rigidity. Mild neck tenderness on palpation. No focal neurologic deficits. Signs and symptoms appear consistent with migraine headache, however slightly concerning with the relatively sudden onset of it, in conjunction with a mild neck achiness. Clinically signs and symptoms appear atypical for meningitis and subarachnoid hemorrhage. Patient was within the 6-hour window. We will get a CT scan for further assessment although I feel intracranial hemorrhage is notably unlikely. In regards to her neck pain I did discuss getting a lumbar puncture, however the patient states that she feels this is unnecessary and would like to defer lumbar puncture for the time being. She would like to reassess after medication is given for the headache. She reiterates that she feels the neck pain is secondary to stress rather than some other etiology. I did discuss the risks and benefits of delayed diagnosis, including lifelong disability and and the patient understands. We will give migraine cocktail, get a CT scan for further assessment of the head, rehydrate and reassess. 7:[address] scan results have returned, no evidence of acute intracranial process or bleed. Laboratory work-up is returned, patient demonstrates no white count, no left shift, no bandemia. CRP is unremarkable at 0.56, ESR 34 and also unremarkable. On reassessment of the patient states she feels much better, and states that the headache and neck pain is nearly completely resolved. She is asking to go home. I did again discuss lumbar puncture, and she would like to hold off as her symptoms have resolved. Clinically she does not show signs or symptoms concerning for acute intercranial bleed or meningitis with normal vital signs, no fever, no chills, no white count or left shift, normal ESR, and an unremarkable CRP. Her signs and symptoms at this time appear clinically consistent with migraine. Patient will be discharged home with close follow-up. I have extensively reviewed the treatment plan and discharge instructions with the patient. I have addressed all patient concerns at this time. The patient was made aware of what symptoms to monitor for that would warrant a return to the emergency department. Discussed the plan with the patient, they demonstrate verbal understanding and agreement with our assessment and plan at this time. FINDINGS: Brain: Normal. No hemorrhage. Unremarkable white matter. No mass effect. Ventricles: Normal. No ventriculomegaly. Bones/joints: Unremarkable. No acute fracture. Sinuses: Visualized sinuses are unremarkable. No fluid levels. Mastoid air cells: Visualized mastoid air cells are well aerated. Soft tissues: Unremarkable. IMPRESSION: No acute intracranial abnormality. Thank you for allowing us to participate in the care of your patient. Dictated and Authenticated by: Xavi Brooks MD [facility] General Date/Time Provider Initiated Documentation: 04/24/19 04:30 . HPI Narrative: This is a 34-year-old female with past medical history of migraines, GERD, anxiety, and hysterectomy who presents today for evaluation of headache. Patient has a history of headaches she states that this headache came on somewhat suddenly. She awoke 4 hours ago with a headache which she describes as a pressure-like sensation in her head. She has had mild nausea and vomiting since then. She states that the symptoms are similar to previous headaches in the past. It is made worse with light and loud noise, improved by nothing. She denies any fever or chills. She does admit to mild neck achiness over the last few days which she has been attributing to work stress. She states that she is gone through an extremely stressful. Over the last week. She denies any other sick contacts. She denies any trauma. The patient denies any headache red flags of worst headache of life, fever, chills, concerning family history of polycystic kidney disease, Marfan syndrome, Kevin-Danlos syndrome, abdominal aortic aneurysm, aortic dissection, or intracranial aneurysm. Related Data Home Medications Medication Instructions Recorded Confirmed cyclobenzaprine 10 mg PO PRN PRN 06/05/15 03/16/19 ropinirole 2 mg PO HS 06/08/15 03/16/19 diphenhydramine HCl 25 mg PO Q6H PRN #12 cap 12/15/16 03/16/19 venlafaxine 150 mg PO BID 12/17/16 03/16/19 gabapentin 600 mg PO .QHS #30 capsule 12/18/16 03/16/19 acetaminophen [Tylenol] 650 mg PO PRN PRN 04/16/17 03/16/19 omeprazole 40 mg PO DAILY #30 cap 03/16/19 prochlorperazine maleate 10 mg PO TID PRN #20 tab 03/16/19 [Compazine] Previous Rx's Medication Instructions Recorded diphenhydramine HCl 25 mg PO Q6H PRN #12 cap 12/15/16 gabapentin 600 mg PO .QHS #30 capsule 12/18/16 omeprazole 40 mg PO DAILY #30 cap 03/16/19 prochlorperazine maleate 10 mg PO TID PRN #20 tab 03/16/19 [Compazine] Allergies Allergy/AdvReac Type Severity Reaction Status Date / Time Penicillins Allergy Severe Swelling Unverified 03/16/19 11:07 in throat granda flavor Allergy Intermediate throat Unverified 03/16/19 11:07 bleeds,swelling kiwi Allergy Intermediate throat Unverified 03/16/19 11:07 swells latex Allergy Mild rash,swelli Unverified 03/16/19 11:07 ng naproxen AdvReac Intermediate Nausea Unverified 03/16/19 11:07 sumatriptan [From Imitrex] AdvReac Mild Headache Unverified 03/16/19 11:07 wool Allergy Mild Skin Rash Uncoded 03/16/19 11:07 General Stated Complaint: Headache IVAN: 3 Review of Systems Review of Systems ROS Unobtainable: All systems reviewed & are unremarkable except as noted in HPI and below PFSH Social History Smoking/Tobacco Use Status: Current every day Alcohol Intake: current Alcohol Intake frequency: a few times a week Drug use: Daily Substance use type: marijuana Do you feel safe at home: Yes Do you feel safe in your relationship?: Yes Exam Narrative Exam Narrative: 1.Const: Well-nourished, Well-developed, appearing stated age 2.Eyes: PERRL, no conjunctival injection, and symmetrical lids. No evidence of papilledema or retinal hemorrhage 3.ENT: Atraumatic external nose and ears. Moist MM. Neck: Symmetric, trachea midline, No thyromegaly. Patient demonstrates good movement of cervical neck. There is no nuchal rigidity, no nuchal tenderness. Patient is able to flex the neck without any difficulty or significant pain. Negative Kernig's and Brudzinski sign. 4.CVS: +S1/S2, No murmurs or gallops. Peripheral pulses 2+ and equal in all extremities. Brisk capillary refill in all extremities. 5.RESP: Unlabored respiratory effort. Clear to auscultation bilaterally. No wheezes rales or rhonchi 6.GI: Soft, Nontender/Nondistended, No hepatosplenomegaly. No guarding or rebound. 7.MSK: Normocephalic/Atraumatic, Extremities w/o deformity or ttp No cyanosis or clubbing, Normal movement of all extremities. Mild tenderness on palpation of the posterior neck, no midline tenderness. No nuchal rigidity. 8.Skin: Warm, Dry. No rashes or lesions. 9.Neuro: insulation mechanic II-XII grossly intact. Sensation grossly intact, no focal neurologic deficits. All 6 cardinal planes of vision are fully intact. No evidence of rotatory or vertical nystagmus. The patient demonstrated a normal [id number], good dexterity. There was no evidence of dysdiadochokinesia. Patient was able to ambulate without difficulty. There was no wide-based gait. Romberg, and [id number]-rw-fngo are both normal on testing. Sensation was intact bilaterally as well as muscle strength bilaterally for all extremities. Patient was able to verbalize butter cup with no slurring, or miss pronunciation. 10.Psych: (AAO) x3. Appropriate mood and affect Course Vital Signs Vital signs: Vital Signs Temperature 36.9 C 04/24/19 04:34 Pulse 84 04/24/19 04:34 Respiratory Rate 22 04/24/19 04:34 Blood Pressure 149/104 H 04/24/19 04:34 Pulse Oximetry 98 04/24/19 04:34 Temperature 36.9 C 04/24/19 04:34 Temperature Source Temporal Artery Scan 04/24/19 04:34 Pulse 84 04/24/19 04:34 Respiratory Rate 22 04/24/19 04:34 Respiratory Effort Non-Labored 04/24/19 04:36 Blood Pressure 149/104 H 04/24/19 04:34 Blood Pressure Position Supine 04/24/19 04:34 Pulse Oximetry 98 04/24/19 04:34 Oxygen Delivery Method Room Air 04/24/19 04:34 Oxygen Flow Rate 0 04/24/19 04:34 Pain Level 10 04/24/19 04:36
[2019-04-24] MEDS: Normal Saline 1,000 ML 1000 ML IV (04:55)
[2019-04-24] MEDS: diphenhydrAMINE 50 MG/ML VIAL 25 MG IVP (05:02)
[2019-04-24] MEDS: methylPREDNISolone SUCC 125 MG VIAL IVP (05:05)
[2019-04-24] MEDS: Normal Saline 50 ML 100 ML (05:08)
[2019-04-24] MEDS: Prochlorperazine 10 MG/2 ML VIAL IVP (05:08)
[2019-04-24] MEDS: Lidocaine 5% Patch 1 PATCH TP (05:15)
[2019-04-24 05:20] LABS: Abs Immature Grans 0.04 k/cumm (0.0-0.09); Absolute Basophil Count 0.05 k/cumm (0.0-0.2); Absolute Lymphocyte Count 2.29 k/cumm (1.2-3.4); Absolute Neutrophil Count 4.76 k/cumm (1.2-6.7); Basophils % 0.6; Eosinophils % 2.5; HCT 41.5 % (36.0-46.0); HGB 13.9 g/dL (12.0-15.5); Immature Grans % 0.5; Lymphocytes % 28.8; Mean Corp. HGB Concentration 33.5 g/dL (32.0-36.0); Mean Corpuscular Hemoglobin 30.7 pg (27.0-33.0); Mean Corpuscular Volume 91.6 fL (80-95); Monocytes % 7.6; Platelet Count 264 x1000/uL (130-400); RBC 4.53 m/cumm (4.00-5.20); RBC Distribution Width 13.9 % (11.7-14.6); White Blood Cell Count 7.94 k/cumm (4.4-10.8)
[2019-04-24] MEDS: ACETAMINOPHEN 1,000 MG/100 ML BTL 400 MG IVPB (05:36)
[2019-04-24 05:38] LABS: ALT 21 U/L (14-59); AST 11 U/L (15-37); Albumin 3.3 g/dL (3.4-5.0); Alkaline Phosphatase 108 U/L (46-116); Anion Gap 11.8 mmol/L (3-11); BUN 14 mg/dL (7-18); Bilirubin, Total 0.3 mg/dL (0.2-1.0); CO2 23.2 mmol/L (21.0-32.0); CREATININE 0.97 mg/dL (0.55-1.02); Calcium 8.2 mg/dL (8.5-10.1); Chloride 105 mmol/L (98-107); Glucose 108 mg/dL (70-100); Potassium 3.7 mmol/L (3.5-5.1); Sodium 140 mmol/L (136-145); Total Protein 7.1 g/dL (6.4-8.2)
--- NOTE | 2019-04-24 05:58 | NUR.NOTE ---
Nursing Note: pain lessened, resting quietly.
[2019-04-24 06:05] LABS: C-Reactive Protein 0.56 mg/dL (0.0-0.3)
--- NOTE | 2019-04-24 06:20 | DI.CT_ITS ---
EXAM: CT HEAD WO CLINICAL HISTORY: headache. TECHNIQUE: Imaging Protocol: Axial computed tomography images with coronal and sagittal reformatted images were created and reviewed COMPARISON: [facility] BRAIN AND NECK from 02/01/2018 FINDINGS: Ventricles and Extra axial spaces: Normal in size and morphology for the patient's age. Hemorrhage: None. Cerebral parenchyma: Normal. Midline shift: None. Brainstem/Cerebellum: Normal. Calvarium: Normal. Visualized Paranasal sinuses/Mastoids: Clear. IMPRESSION: Normal CT of the head. DATA REPOSITORY: All CT scans at this facility are submitted to the National Radiology Data Registry (NRDR) Dose Index Registry (DIR) with the [employer] (A[employer]). RADIATION OPTIMIZATION: All CT scans at this facility use at least one of these dose optimization te chniques: automated exposure control; mA and/or kV adjustment per patient size (includes targeted exa ms where dose is matched to clinical indication); or iterative reconstruction.
[2019-04-24 07:09] LABS: ESR 34 mm/hr (0-20)
[2019-04-24] MEDS: Ketorolac 30 MG/ML VIAL IVP (07:12)
[2019-04-24 07:15] VITALS: BP 119/76; PULSE 75; RESP 16; O2SAT 96
== END 2019-04-24 07:19 | disposition home or self-care (01) ==
PROVIDERS: Emergency Provider Student in an Organized Health Care Education/Training Program; PCP Physician Assistant Medical
DX: R51 Headache (principal); R11.2 Nausea with vomiting, unspecified
CPT/HCPCS: 36415; 80053; 85652; 96361; 96365; 96375; 99284; 70450; 85025; 86140; J0131; J0780; J1200; J1885; J2930

== ENCOUNTER 2019-05-22 13:54 | Emergency (ER) | payer MEDICAID, SELFPAY ==
[2019-05-22 14:04] VITALS: BP 164/86; PULSE 74; RESP 16; TEMP 36.6; O2SAT 98
--- NOTE | 2019-05-22 14:24 | ED.GENADUL_ITS ---
Discharge Plan Disposition Patient Disposition: HOME Condition: Improving Discharge Details Chief Complaint: DentalOral Clinical Impression: Odontalgia Primary Care Provider: German Campa ED Provider: Everett Bray Home Meds and New Rx's Prescriptions: New clindamycin HCl 300 mg capsule 300 mg PO Q6H 10 Days Qty: 40 RF: 0 Continued ropinirole 1 MG tablet 2 mg PO HS RF: 0 cyclobenzaprine 10 MG tablet 10 mg PO PRN PRNRF: 0 prochlorperazine maleate [Compazine] 10 mg tablet 10 mg PO TID PRN (Reason: nausea and vomiting) Qty: 20 RF: 0 omeprazole 20 MG capsule,delayed release(DR/EC) 40 mg PO DAILY Qty: 30 RF: 0 diphenhydramine HCl 25 MG capsule 25 mg PO Q6H PRN (Reason: Vomiting) Qty: 12 RF: 0 venlafaxine 150 MG capsule,extended release 24hr 150 mg PO BID RF: 0 gabapentin 300 MG capsule 600 mg PO .QHS Qty: 30 RF: 0 acetaminophen [Tylenol] 325 MG tablet 650 mg PO PRN PRNRF: 0 Discharge Instructions Instructions: Toothache (ED) Additional Instructions: Continue Tylenol and/or ibuprofen as needed for pain. Take antibiotics as prescribed Please follow-up with dentistry for recheck. See enclosed resources. Return to the emergency department for any acute concern. Medical Decision Making 34-year-old female presents from home with left odontalgia over days time. She did have some of the broken device which she initiated yesterday. She arrives with probable developing apical infection of damage left mandibular premolar. Dental block of inferior alveolar nerve provided with improvement. Will place her on a full course of penicillin for her to dentistry for follow-up. HPI General Mode of arrival: ambulatory . Date/Time Provider Initiated Documentation: 05/22/19 13:58 . Limitations to Documentation: no limitations . Information obtained by: patient . History of Present Illness 34 year old F presents to the emergency department with the chief complaint of Left jaw pain, poor dental care, Quality is described as dull, and is localized to the face, mouth and left. Patient reports no radiation. Patient started experiencing this day(s) and it has been constant. No relieving factors improve symptom(s), No exacerbating factors reported . Patient notes no other symptoms.. Patient did receive the following treatments prior to arrival, other (Began clindamycin) Related Data Home Medications Medication Instructions Recorded Confirmed cyclobenzaprine 10 mg PO PRN PRN 06/05/15 05/22/19 ropinirole 2 mg PO HS 06/08/15 05/22/19 diphenhydramine HCl 25 mg PO Q6H PRN #12 cap 12/15/16 05/22/19 venlafaxine 150 mg PO BID 12/17/16 05/22/19 gabapentin 600 mg PO .QHS #30 capsule 12/18/16 05/22/19 acetaminophen [Tylenol] 650 mg PO PRN PRN 04/16/17 05/22/19 omeprazole 40 mg PO DAILY #30 cap 03/16/19 05/22/19 prochlorperazine maleate 10 mg PO TID PRN #20 tab 03/16/19 05/22/19 [Compazine] clindamycin HCl 300 mg PO Q6H 10 Days #40 cap 05/22/19 Previous Rx's Medication Instructions Recorded diphenhydramine HCl 25 mg PO Q6H PRN #12 cap 12/15/16 gabapentin 600 mg PO .QHS #30 capsule 12/18/16 omeprazole 40 mg PO DAILY #30 cap 03/16/19 prochlorperazine maleate 10 mg PO TID PRN #20 tab 03/16/19 [Compazine] clindamycin HCl 300 mg PO Q6H 10 Days #40 cap 05/22/19 Allergies Allergy/AdvReac Type Severity Reaction Status Date / Time Penicillins Allergy Severe Swelling Unverified 05/22/19 14:07 in throat granda flavor Allergy Intermediate throat Unverified 05/22/19 14:07 bleeds,swelling kiwi Allergy Intermediate throat Unverified 05/22/19 14:07 swells latex Allergy Mild rash,swelli Unverified 05/22/19 14:07 ng naproxen AdvReac Intermediate Nausea Unverified 05/22/19 14:07 sumatriptan [From Imitrex] AdvReac Mild Headache Unverified 05/22/19 14:07 wool Allergy Mild Skin Rash Uncoded 05/22/19 14:07 General Stated Complaint: DentalOral IVAN: 4 Review of Systems Narrative: 4 systems reviewed and otherwise negative PFSH Medical History Anxiety BMI 35.0-35.9,adult GERD (gastroesophageal reflux disease) Migraine Pelvic pain in female Restless leg syndrome Right ovarian cyst Social History Smoking/Tobacco Use Status: Current every day Alcohol Intake: current Alcohol Intake frequency: a few times a week Drug use: Daily Substance use type: marijuana Do you feel safe at home: Yes Do you feel safe in your relationship?: Yes Exam Narrative Exam Narrative: GEN: awake, alert, oriented 3. Pleasant, well groomed, interactive. HEAD: Normocephalic, atraumatic ENT: Mucous membranes moist, oropharynx with broken buccal cusp of left man dibular premolar, surrounding tenderness, no sniffing and fluctuance, tympanic membranes clear bilaterally, External ear exam unremarkable EYES: PERRL, EOMI NECK: Full ROM, no KOSTAS, no menigismus CHEST/RESP: No respiratory distress EXT: Full ROM, no edema, no rash Neuro: Grossly normal neurologic exam, conversant, interactive. Psych: Speech fluent, thoughts congruent, affect normal Course Vital Signs Vital signs: Vital Signs Temperature 36.6 C 05/22/19 14:04 Pulse 74 05/22/19 14:04 Respiratory Rate 16 05/22/19 14:04 Blood Pressure 164/86 H 05/22/19 14:04 Pulse Oximetry 98 05/22/19 14:04 Temperature 36.6 C 05/22/19 14:04 Temperature Source Temporal Artery Scan 05/22/19 14:04 Pulse 74 05/22/19 14:04 Respiratory Rate 16 05/22/19 14:04 Respiratory Effort Non-Labored 05/22/19 14:04 Blood Pressure 164/86 H 05/22/19 14:04 Blood Pressure Position Sitting 05/22/19 14:04 Pulse Oximetry 98 05/22/19 14:04 Oxygen Delivery Method Room Air 05/22/19 14:04 Oxygen Flow Rate 0 05/22/19 14:04 Pain Level 10 05/22/19 14:04 Comment 05/22/19 14:04 Procedures Nerve Block Nerve Block 1: Side: left Intraoral Nerve Block: inferior alveolar Procedure Successful: Yes
== END 2019-05-22 14:40 | disposition home or self-care (01) ==
PROVIDERS: Emergency Provider Emergency Medicine; PCP Physician Assistant Medical
DX: K08.89 Other specified disorders of teeth and supporting structures (principal)
CPT/HCPCS: 64400; 99283

== ENCOUNTER 2019-05-27 14:05 | Emergency (ER) | payer MEDICAID, SELFPAY ==
[2019-05-27 14:10] VITALS: BP 141/90; PULSE 80; RESP 16; TEMP 36.8; O2SAT 100
--- NOTE | 2019-05-27 14:27 | W.ED.GENAD ---
Discharge Plan Disposition Patient Disposition: HOME Condition: Improving Discharge Details Chief Complaint: Headache Clinical Impression: Headache, Pain, dental Primary Care Provider: German Campa ED Provider: Ismael Blackmon Home Meds and New Rx's Prescriptions: Continued ropinirole 1 MG tablet 2 mg PO HS RF: 0 prochlorperazine maleate [Compazine] 10 mg tablet 10 mg PO TID PRN (Reason: nausea and vomiting) Qty: 20 RF: 0 omeprazole 20 MG capsule,delayed release(DR/EC) 40 mg PO DAILY Qty: 30 RF: 0 diphenhydramine HCl 25 MG capsule 25 mg PO Q6H PRN (Reason: Vomiting) Qty: 12 RF: 0 venlafaxine 150 MG capsule,extended release 24hr 300 mg PO DAILY RF: 0 gabapentin 300 MG capsule 600 mg PO .QHS Qty: 30 RF: 0 acetaminophen [Tylenol] 325 MG tablet 650 mg PO PRN PRNRF: 0 Discontinued cyclobenzaprine 10 MG tablet 10 mg PO PRN PRNRF: 0 clindamycin HCl 300 mg capsule 300 mg PO Q6H 10 Days Qty: 40 RF: 0 Discharge Instructions Instructions: Acute Headache (ED), Toothache (ED) Additional Instructions: You may continue to take your prescribed Tylenol with codeine. You may also take 1000 mg of acetaminophen/Tylenol with 600 mg of ibuprofen every 6 hours as needed for pain. Just ensure that you do not take more than 4000 mg of Tylenol/acetaminophen in a 24-hour. Stay well-hydrated and get plenty of rest. Slowly advance activity as tolerated. If you continue to have significant amount of dental pain please follow-up with your dental provider for any further reassessment. Feel free to return the emergency department for any new or significant worsening of symptoms or any further concerns you may have. Stand Alone Forms: Work Release Referrals: German Campa PA [Primary Care Provider] - (As needed for reassessment of your headaches) Medical Decision Making Patient presenting the emergency department for chief complaint of headache. Patient states that this is similar to her previous migraine headaches. She recently had a tooth extraction done yesterday and has been taking some Tylenol with codeine with last dose early in the morning. Patient does feel that her headache has been brought on by her recent dental extraction. Patient denies any fever, focal neurological deficits, any other symptoms beyond nausea and vomiting. Physical exam is unremarkable, no signs of meningeal involvement, patient afebrile and otherwise stable in appearance. Plan to treat symptomatically. Did review patient's previous records and she has multiple visits to the emergency department for similar symptoms with unremarkable work-up. Given this I do not feel that any labs or imaging is required at this time but will reassess after medications. Plan to give patient IV fluids, Decadron, Phenergan, ketorolac. Patient reassessed after medications were completed and appropriate amount of time for effective reassessment. Patient does state that she feels significantly better than before and while she is having some continued dental pain it is improved and headache is almost gone. Again speaking with patient patient has no obvious worsening of symptoms or neurological findings. Given this I do feel the patient is able to be safely discharged. Close return precautions were discussed along with follow-up with dental provider if dental pain continues and primary care follow-up as needed. After discussion of diagnosis and plan of care patient has no further needs, questions, or concerns and states clear understanding to return to the emergency department for any worsening symptoms. HPI General Mode of arrival: ambulatory. Date/Time Provider Initiated Documentation: 05/27/19 14:11. Limitations to Documentation: no limitations. Information obtained by: RN notes reviewed. History of Present Illness 34 year old F presents to the emergency department with the chief complaint of headache, dental pain, described as severe and similar to prior episodes, with intensity rated at 10. Quality is described as sharp, and is localized to the head. Patient started experiencing this day(s) (1) and it has been constant. Patient notes nausea/vomiting. Patient did receive the following treatments prior to arrival, other (Acetaminophen with codeine early this morning) Related Data Home Medications Medication Instructions Recorded Confirmed ropinirole 2 mg PO HS 06/08/15 05/27/19 diphenhydramine HCl 25 mg PO Q6H PRN #12 cap 12/15/16 05/27/19 venlafaxine 300 mg PO DAILY 12/17/16 05/27/19 gabapentin 600 mg PO .QHS #30 capsule 12/18/16 05/27/19 acetaminophen [Tylenol] 650 mg PO PRN PRN 04/16/17 05/27/19 omeprazole 40 mg PO DAILY #30 cap 03/16/19 05/27/19 prochlorperazine maleate 10 mg PO TID PRN #20 tab 03/16/19 05/27/19 [Compazine] Previous Rx's Medication Instructions Recorded diphenhydramine HCl 25 mg PO Q6H PRN #12 cap 12/15/16 gabapentin 600 mg PO .QHS #30 capsule 12/18/16 omeprazole 40 mg PO DAILY #30 cap 03/16/19 prochlorperazine maleate 10 mg PO TID PRN #20 tab 03/16/19 [Compazine] Allergies Allergy/AdvReac Type Severity Reaction Status Date / Time Penicillins Allergy Severe Swelling Unverified 05/27/19 14:14 in throat granda flavor Allergy Intermediate throat Unverified 05/27/19 14:14 bleeds,swelling kiwi Allergy Intermediate throat Unverified 05/27/19 14:14 swells latex Allergy Mild rash,swelli Unverified 05/27/19 14:14 ng naproxen AdvReac Intermediate Nausea Unverified 05/27/19 14:14 sumatriptan [From Imitrex] AdvReac Mild Headache Unverified 05/27/19 14:14 wool Allergy Mild Skin Rash Uncoded 05/27/19 14:14 General Stated Complaint: Headache IVAN: 3 Review of Systems Constitutional Constitutional: Denies body ache(s), Denies fever(s) and Reports headache(s) Eyes Eyes: Denies change in vision and Reports photophobia ENT Ears, Nose, Mouth, and Throat: Reports as per HPI, Reports dental pain, Denies otalgia and Reports headache(s) Cardiovascular Cardiovascular: Denies chest pain and Denies syncope Gastrointestinal Gastrointestinal: Reports nausea and Reports vomiting Neurologic Neurologic: Reports as per HPI, Denies syncope, Reports headache(s) and Denies sensory deficit [facility] Social History Smoking/Tobacco Use Status: Current every day Tobacco Type: cigarettes Alcohol Intake: current Alcohol Intake frequency: a few times a week Drug use: Daily Substance use type: marijuana Do you feel safe at home: Yes Do you feel safe in your relationship?: Yes Exam Const General: cooperative, healthy appearing, no acute distress and well groomed Orientation: alert, awake and oriented x3 HENMT Head: normal to inspection Ears: hearing grossly normal bilaterally and TM's normal bilaterally Mouth: oral mucosae normal and moist mucous membranes Teeth and gingiva: other (Recent dental extraction of tooth #20) Throat: posterior oropharynx normal Eyes Visual Perry: normal visual perry by confrontation Alignment and Position: alignment normal Periorbital: periorbital findings normal Eyelids: eyelids normal Sclera: sclerae normal Cornea: corneas normal Pupils: PERRL EOM: EOM intact bilaterally Neck Neck: normal visual inspection, full ROM, no lymphadenopathy and no meningeal signs Resp Effort & Inspection: normal respiratory effort and able to speak in complete sentences Auscultation: clear to auscultation bilaterally Cardio Rate: regular rate Rhythm: regular rhythm Heart Sounds: S1 normal and S2 normal Neuro General: alert, awake, oriented x3, gait normal, tone normal, moves all extremities, no meningeal signs, CN's II-XI intact bilaterally and not confused Cognition: normal cognition Speech: speech normal Motor: muscle tone normal throughout, strength 5/5 throughout, no pronator drift, no movement abnormalities noted and no fasciculations Sensory Exam: no sensory deficits noted Coordination: [id number] test normal, Does not sway with eyes open and rapid alternating movement UE normal Course Vital Signs Vital signs: Vital Signs Temperature 36.8 C 05/27/19 14:10 Pulse 80 05/27/19 14:10 Respiratory Rate 16 05/27/19 14:10 Blood Pressure 141/90 H 05/27/19 14:10 Pulse Oximetry 100 05/27/19 14:10 Temperature 36.8 C 05/27/19 14:10 Temperature Source Skin 05/27/19 14:10 Pulse 80 05/27/19 14:10 Respiratory Rate 16 05/27/19 14:10 Respiratory Effort Non-Labored 05/27/19 14:10 Blood Pressure 141/90 H 05/27/19 14:10 Blood Pressure Position Sitting 05/27/19 14:10 Pulse Oximetry 100 05/27/19 14:10 Oxygen Delivery Method Room Air 05/27/19 14:10 Oxygen Flow Rate 0 05/27/19 14:10 Pain Level 10 05/27/19 14:10
[2019-05-27] MEDS: Normal Saline 1,000 ML 1000 ML IV (14:30)
[2019-05-27] MEDS: Acetaminophen 500 MG TAB 1000 MG PO (14:53)
[2019-05-27] MEDS: Dexamethasone 10 MG/ML VIAL IVP (14:55)
[2019-05-27] MEDS: diphenhydrAMINE 50 MG/ML VIAL 25 MG IVP (14:56)
[2019-05-27] MEDS: Ketorolac 30 MG/ML VIAL IVP (14:56)
[2019-05-27] MEDS: Normal Saline Flush 10 ML SYR IVP (15:08)
[2019-05-27 15:20] VITALS: BP 143/87; PULSE 64; O2SAT 100
[2019-05-27 15:21] VITALS: O2SAT 99
[2019-05-27 15:31] VITALS: BP 122/73; PULSE 64; O2SAT 99
[2019-05-27 15:32] VITALS: O2SAT 98
[2019-05-27 15:40] VITALS: O2SAT 99
== END 2019-05-27 16:21 | disposition home or self-care (01) ==
PROVIDERS: Emergency Provider Nurse Practitioner Family; PCP Physician Assistant Medical
DX: R51 Headache (principal); K08.89 Other specified disorders of teeth and supporting structures
CPT/HCPCS: 96361; 96365; 96375; 99284; J1100; J1200; J1885

== ENCOUNTER 2019-06-28 14:26 | Emergency (ER) | payer MEDICAID, SELFPAY ==
[2019-06-28 14:29] VITALS: BP 131/87; PULSE 82; RESP 16; TEMP 36.5; O2SAT 93
--- NOTE | 2019-06-28 14:33 | ED.GENADUL_ITS ---
Discharge Plan Disposition Patient Disposition: HOME Condition: Good Discharge Details Chief Complaint: CVA/TIA Clinical Impression: Bermeo's palsy Primary Care Provider: German Campa ED Provider: Doni Ball Home Meds and New Rx's Prescriptions: New prednisone 20 mg tablet 60 mg PO DAILY 6 Days Qty: 18 RF: 0 valacyclovir 1 gram tablet 1,000 mg PO TID 7 Days Qty: 21 RF: 0 Continued ropinirole 1 MG tablet 2 mg PO HS RF: 0 prochlorperazine maleate [Compazine] 10 mg tablet 10 mg PO TID PRN (Reason: nausea and vomiting) Qty: 20 RF: 0 omeprazole 20 MG capsule,delayed release(DR/EC) 40 mg PO DAILY Qty: 30 RF: 0 diphenhydramine HCl 25 MG capsule 25 mg PO Q6H PRN (Reason: Vomiting) Qty: 12 RF: 0 venlafaxine 150 MG capsule,extended release 24hr 300 mg PO DAILY RF: 0 gabapentin 300 MG capsule 600 mg PO .QHS Qty: 30 RF: 0 acetaminophen [Tylenol] 325 MG tablet 650 mg PO PRN PRNRF: 0 Discharge Instructions Instructions: Bermeo Palsy (ED) Additional Instructions: Encourage hydration. Your symptoms are most concerning for Bermeo's palsy. Please take Prednisone and Valacyclovir as prescribed. You need to apply artifical tears to your right eye throughout the course of the day and before bed. Tape your eye shut at night. Please follow up with primary care at the end of the week for reevaluation. Tick and Lyme testing are pending, we will call you if any of these are positive. If you develop fevers/chills, pain, increased weakness or other new/worsening symptoms please seek care urgently once again. Referrals: German Campa PA [Primary Care Provider] - Discharge Data Discharge Date/Time-TO BE ENTERED AT DEPARTURE: 06/28/19 17:00 Medical Decision Making <RADHA Johnson - Last Filed: 06/29/19 16:19> Patient is a 34-year-old female presenting today with chief complaint of 2 days of right-sided facial weakness, change in her speech, blurred vision and right arm tingling. She denies any head trauma. Is been having a headache. Reports is atypical from her migraine she is had in the past. States that she awoke with tongue swelling 3 days ago and subsequently awoke with the right-sided facial weakness 2 days ago. Denies any fevers or chills. No recent illness. Reports that she has had a large amount of stress recently. No familial or personal neurologic history the patient is aware of. Patient is status post hysterectomy. Not examined, patient appears nontoxic. She is right-sided weakness consistent with Bermeo's palsy. Pupils are equal round and reactive, extra ocular movements are intact. Neuro exam is otherwise unremarkable. Patient had reported numbness to the right side of the face but did have sharp dull testing on this side. Reflexes and strength are intact on the right upper extremity. Sharp dull testing is opposite throughout the entire arm. Aside from the Bermeo's palsy findings, no objective abnormalities. Patient's visual acuity 20/25 on the lef t, 20/100 on the right. Patient is having difficulty closing the side. Plan for ECG, labs and MRI. Consulted with Dr. Valle who advised that Bermeo's palsy does not sound consistent with MS or other emergent neurologic abnormalities associated with the array of patient's complaints. Rather, the she advised that the right eye blurriness is likely associated with dry eye out from the Bermeo's palsy. We will give patient antivirals and steroids. ECG reviewed by Dr. Bray. Patient is in normal sinus rhythm with a rate of 74, no acute ischemic changes noted. Patient has grade 4 House-Brackman facial nerve dysfunction. Patient will be given 60 mg of prednisone and 1000 mg valacyclovir. At the end of my shift, care transitioned to Dr. Ball with MRI pending. <Doni Ball, DO - Last Filed: 06/28/19 16:58> This is a pleasant 34-year-old female who was signed out to me by my colleague Adeline Serra. Pending MRI results at that time. Please refer to her documentation for initial assessment and plan. Diagnosis Bermeo's palsy. MRI results have returned negative per virtual radiology. Repeat exam demonstrates no evidence of significant concerning neurologic deficit aside for the right- sided facial droop. She is able to ambulate well, and otherwise demonstrates no significant concerning abnormality. Physical exam prior to discharge also included fluorescein stain of the right eye, which demonstrated no evidence of uptake or corneal abrasion. Patient will be given steroids, antivirals, and artificial tears for home use. Recommended taping the eye nightly to keep from any potential corneal irritation. Discussed red flags which to return the importance of close follow-up with PCP. I have extensively reviewed the treatment plan and discharge instructions with the patient and their family. I have addressed all patient concerns at this time. The patient and family was made aware of what symptoms to monitor for that would warrant a return to the emergency department. Discussed the plan with the patient and family, they demonstrate verbal understanding and agreement with our assessment and plan at this time. FINDINGS: Brain: Normal. No acute infarct. No hemorrhage. No significant white matter disease. No edema. Ventricles: Normal. No ventriculomegaly. Bones/joints: Unremarkable. Soft tissues: Unremarkable. Sinuses: Normal as visualized. No acute sinusitis. Mastoid air cells: Normal as visualized. No mastoid effusion. Orbits: Unremarkable. IMPRESSION: No acute intracranial abnormality. Dictated and Authenticated by: Thompson Hernandez MD. Ordering:VALE Lr MD HPI <RADHA Johnson - Last Filed: 06/29/19 16:19> General Mode of arrival: ambulatory . Date/Time Provider Initiated Documentation: 06/28/19 14:31 . Limitations to Documentation: no limitations . Information obtained by: patient and RN notes reviewed . HPI Narrative: Patient is a 34-year-old female presenting today with CVA symptoms. She reports the symptoms began initially 3 days ago which time she awoke feeling that her tongue was swollen. Reports that she then awoke 2 days ago noting right sided facial numbness. States that she also felt that the right eye had blurred is having difficulty closing the right eyelid. Hydrating well. Did not come in prior today as she needed to work. Not had symptoms like this previously. Reports that the same day she noted the right-sided facial numbness, the right arm felt tingly. Has not noted any weakness. Related Data Home Medications Medication Instructions Recorded Confirmed ropinirole 2 mg PO HS 06/08/15 06/28/19 diphenhydramine HCl 25 mg PO Q6H PRN #12 cap 12/15/16 06/28/19 venlafaxine 300 mg PO DAILY 12/17/16 06/28/19 gabapentin 600 mg PO .QHS #30 capsule 12/18/16 06/28/19 acetaminophen [Tylenol] 650 mg PO PRN PRN 04/16/17 06/28/19 omeprazole 40 mg PO DAILY #30 cap 03/16/19 06/28/19 prochlorperazine maleate 10 mg PO TID PRN #20 tab 03/16/19 06/28/19 [Compazine] prednisone 60 mg PO DAILY 6 Days #18 tab 06/28/19 valacyclovir 1,000 mg PO TID 7 Days #21 tab 06/28/19 Previous Rx's Medication Instructions Recorded diphenhydramine HCl 25 mg PO Q6H PRN #12 cap 12/15/16 gabapentin 600 mg PO .QHS #30 capsule 12/18/16 omeprazole 40 mg PO DAILY #30 cap 03/16/19 prochlorperazine maleate 10 mg PO TID PRN #20 tab 03/16/19 [Compazine] prednisone 60 mg PO DAILY 6 Days #18 tab 06/28/19 valacyclovir 1,000 mg PO TID 7 Days #21 tab 06/28/19 Allergies Allergy/AdvReac Type Severity Reaction Status Date / Time Penicillins Allergy Severe Swelling Unverified 06/28/19 16:58 in throat granda flavor Allergy Intermediate throat Unverified 06/28/19 16:58 bleeds,swelling kiwi Allergy Intermediate throat Unverified 06/28/19 16:58 swells latex Allergy Mild rash,swelli Unverified 06/28/19 16:58 ng naproxen AdvReac Intermediate Nausea Unverified 06/28/19 16:58 sumatriptan [From Imitrex] AdvReac Mild Headache Unverified 06/28/19 16:58 wool Allergy Mild Skin Rash Uncoded 06/28/19 16:58 General Stated Complaint: CVA/TIA IVAN: 2 Review of Systems <RADHA Johnson - Last Filed: 06/29/19 16:19> Constitutional Constitutional: Reports as per HPI, Denies chills, Reports fatigue, Denies f ever(s), Denies frequent falls, Reports headache(s), Denies snoring and Denies weakness Eyes Eyes: Reports as per HPI, Denies blurry vision, Denies change in vision and Re ports photophobia ENT Ears, Nose, Mouth, and Throat: Denies vertigo, Denies dizziness, Reports headache(s) and Denies neck pain Cardiovascular Cardiovascular: Reports as per HPI, Denies chest pain, Denies syncope, Denies lightheadedness, Denies radiating jaw, neck or arm pain, Denies dyspnea and Denies dyspnea on exertion Respiratory Respiratory: Reports as per HPI, Denies chest congestion, Denies cough, Denies dyspnea, Denies dyspnea on exertion, Denies snoring, Denies stridor and Denies wheezing Gastrointestinal Gastrointestinal: Reports as per HPI, Denies abdominal pain, Denies change in bowel habits, Denies nausea and Denies vomiting Musculoskeletal Musculoskeletal: Reports as per HPI, Denies back pain, Denies myalgias, Denies muscle cramps, Denies neck pain, Reports numbness (right side of face) and Reports tingling (right arm) Integumentary/Breasts Skin/Breast: Reports as per HPI and Denies rash Neurologic Neurologic: Reports as per HPI, Denies abnormal movements, Reports abnormal speech (feels that speech has been unclear in past 48 hours), Denies behavioral changes, Denies confusion, Denies vertigo, Denies dizziness, Denies syncope, Denies frequent falls, Reports headache(s), Denies lack of coordination, Reports focal weakness (right side of face), Reports numbness (right side of face), Denies radicular pain, Denies sensory deficit, Reports tingling (right arm), Denies tremor(s) and Denies weakness Psychiatric Psychiatric: Denies behavioral changes and Denies confusion Endocrine Endocrine: Reports fatigue Allergic/Immunologic Allergic/Immunologic: Denies wheezing PFSH <RADHA Johnson - Last Filed: 06/29/19 16:19> Medical History Anxiety BMI 35.0-35.9,adult GERD (gastroesophageal reflux disease) Migraine Pelvic pain in female Restless leg syndrome Right ovarian cyst Surgical History Diagnostic Laproscopy 2002 Weeks Hosp. bilateral ovarian cystectomies 11/2009. Diagnostic laparoscopy for chronic RLQ pain after LAVH in 2009. EGD - MAC (12/16/16) Hysterectomy, Laproscopic (~11/2009) LAVH, ovarian conservation for dysmenorrhea Oophrectomy, Right (06/09/15) Laparoscopic RSO with L salpingectomy for R sided pelvic pain. R corpus luteum cyst. no pathology. R wrist cyst removal 10/2002 Tooth extraction 07/2014 wisdom teeth extraction Social History Smoking/Tobacco Use Status: Current every day Tobacco Type: cigarettes Alcohol Intake: current Alcohol Intake frequency: a few times a week Drug use: Daily Substance use type: marijuana Do you feel safe at home: Yes Do you feel safe in your relationship?: Yes Exam <RADHA Johnson - Last Filed: 06/29/19 16:19> Const General: cooperative, healthy appearing, uncomfortable, no acute distress, well developed and well groomed Nutritional Appearance: average body habitus and well nourished Orientation: alert, awake and oriented x3 HENMT Head: normal to inspection, no palpable skull fracture, normocephalic and atraumatic Ears: hearing grossly normal bilaterally, external ears normal and TM's normal bilaterally General nose exam: external nose normal Face and sinus: abnormal facial exam (right sided facial weakness/droop with fla t forehead consistent with Hurley), sinuses nontender and face asymmetric Mouth: oral mucosae normal, lip normal, tongue normal and moist mucous membranes Teeth and gingiva: dentition normal and gingiva normal Throat: posterior oropharynx normal, tonsils normal and uvula midline Eyes General: appearance normal, both eyes and all related structures Alignment and Position: alignment normal Periorbital: periorbital findings normal Eyelids: eyelid abnormality (slow to close right eye, able to clench shut but minimal blinking) Sclera: sclerae normal Cornea: corneas normal Pupils: PERRL EOM: EOM intact bilaterally Neck Neck: normal visual inspection, full ROM, no lymphadenopathy and no meningeal signs Resp Effort & Inspection: normal respiratory effort, able to speak in complete sentences and no respiratory distress Auscultation: clear to auscultation bilaterally, no rales, no rhonchi and no wheezes Cardio Rate: regular rate Rhythm: regular rhythm Heart Sounds: S1 normal and S2 normal GI Inspection: normal to inspection and non-distended Palpation: soft, no hepatosplenomegaly, not firm, no guarding, not rigid and nontender Percussion: normal to percussion Auscultation: normal bowel sounds Back/Spine/Pelvis Cervical Spine: normal cervical lordosis and cervical ROM normal Skin General skin exam: no rashes or lesions noted Neuro General: alert, awake and oriented x3 Cranial Nerves: PERRL, accommodation normal, EOM intact bilaterally, no nystagmus, facial strength abnormal (diminished on right side), tongue midline, gag reflex normal, hearing normal, able to rotate head bilaterally, able to elevate shoulders bilaterally and Symmetric palate elevation Cognition: normal cognition Speech: speech normal Gait: normal gait Motor: muscle tone normal throughout, strength 5/5 throughout, no pronator drift, no movement abnormalities noted and no fasciculations Sensory Exam: no sensory deficits noted DTR's: Rt Triceps: 2+, Lt Triceps: 2+, Rt Biceps: 2+ and Lt Biceps: 2+ Coordination: [id number] test normal and rapid alternating movement UE normal Extrem General: normal to inspection, normal capillary refill, no pedal edema and no calf tenderness Psych Appearance: grossly normal and well kempt Mental Status: mental status grossly normal Speech and Movement: speech and movement normal Course <RADHA Johnson - Last Filed: 06/29/19 16:19> Vital Signs Vital signs: Vital Signs Temperature 36.5 C 06/28/19 14:29 Pulse 82 06/28/19 14:29 Respiratory Rate 16 06/28/19 14:29 Blood Pressure 131/87 06/28/19 14:29 Pulse Oximetry 93 L 06/28/19 14:29 Temperature 36.5 C 06/28/19 14:29 Temperature Source Temporal Artery Scan 06/28/19 14:29 Pulse 82 06/28/19 14:29 Respiratory Rate 16 06/28/19 14:29 Blood Pressure 131/87 06/28/19 14:29 Blood Pressure Position Sitting 06/28/19 14:29 Pulse Oximetry 93 L 06/28/19 14:29 Oxygen Delivery Method Room Air 06/28/19 14:29 Oxygen Flow Rate 0 06/28/19 14:29 Pain Level 0 06/28/19 14:29 Sign Out <RADHA Johnson - Last Filed: 06/29/19 16:19> Sign Out Data: Sign Out Comment: Care transitioned to Dr. Whitewood with MRI pending. Last updated by Adeline Kulkarni PA at 06/28/19 16:30
[2019-06-28 15:09] LABS: Bilirubin Negative (Negative); Blood Negative (Negative); Clarity Clear (Clear); Glucose Negative (Negative); Ketones Negative (Negative); Leukocyte Esterase Negative (Negative); Nitrite Negative (Negative); Specific Gravity >= 1.030 (1.005-1.025); Urobilinogen 0.2 EU/dL (Up TO 0.2)
[2019-06-28 15:09] LABS: Abs Immature Grans 0.02 k/cumm (0.0-0.09); Absolute Basophil Count 0.05 k/cumm (0.0-0.2); Absolute Eosinophil Count 0.08 k/cumm (0.0-0.7); Absolute Lymphocyte Count 1.82 k/cumm (1.2-3.4); Absolute Monocyte Count 0.37 k/cumm (0.11-0.7); Absolute Neutrophil Count 3.66 k/cumm (1.2-6.7); Basophils % 0.8; Eosinophils % 1.3; HCT 41.1 % (36.0-46.0); HGB 13.6 g/dL (12.0-15.5); Immature Grans % 0.3; Lymphocytes % 30.3; Mean Corp. HGB Concentration 33.1 g/dL (32.0-36.0); Mean Corpuscular Hemoglobin 30.7 pg (27.0-33.0); Mean Corpuscular Volume 92.8 fL (80-95); Mean Platelet Volume 10.6 fL (8.0-11.0); Monocytes % 6.2; Neutrophils % 61.1; Platelet Count 223 x1000/uL (130-400); RBC 4.43 m/cumm (4.00-5.20); RBC Distribution Width 13.5 % (11.7-14.6)
[2019-06-28] MEDS: Normal Saline 1,000 ML 125 ML IV (15:10)
[2019-06-28 15:30] LABS: ALT 28 U/L (14-59); AST 18 U/L (15-37); Albumin 3.4 g/dL (3.4-5.0); Alkaline Phosphatase 91 U/L (46-116); Anion Gap 8.5 mmol/L (3-11); BUN 11 mg/dL (7-18); Bilirubin, Total 0.3 mg/dL (0.2-1.0); CO2 27.5 mmol/L (21.0-32.0); CREATININE 0.83 mg/dL (0.55-1.02); Calcium 8.6 mg/dL (8.5-10.1); Chloride 106 mmol/L (98-107); Glucose 90 mg/dL (74-106); Magnesium 1.7 mg/dL (1.8-2.4); Potassium 3.8 mmol/L (3.5-5.1); Sodium 142 mmol/L (136-145); Total Protein 6.8 g/dL (6.4-8.2)
[2019-06-28 15:31] LABS: Troponin I < 0.05 ng/Ml (<0.06)
--- NOTE | 2019-06-28 15:31 | DI.MRI_ITS ---
EXAM: MR BRAIN WO/W CLINICAL HISTORY: right sided bells, right eye blurred, RUE tingling TECHNIQUE: Multiplanar multisequence MRI of the brain was performed. CONTRAST MATERIAL: IV Contrast: 20 ML of Dotarem contrast administered. COMPARISON: No exams were available for comparison FINDINGS: VENTRICLES AND EXTRA AXIAL SPACES: Normal in size and morphology for the patient's age. HEMORRHAGE: None. CEREBRAL PARENCHYMA: No focus of restricted diffusion to suggest acute infarct. No space-occupying le jelly identified. MIDLINE SHIFT: None. BRAINSTEM/CEREBELLUM: Normal. CALVARIUM: Normal. ENHANCEMENT: No suspicious enhancement identified. VISUALIZED PARANASAL SINUSES/MASTOIDS: Clear. OTHER FINDINGS: None. IMPRESSION: Unremarkable MRI of the brain.
[2019-06-28] MEDS: Gadoterate meglumine 20 ML VIAL IVP (15:45)
--- NOTE | 2019-06-28 16:32 | DI.VRAD_ITS ---
PROCEDURE INFORMATION: Exam: MR Head Without and With Contrast Exam date and time: 06/28/2019 4:06 PM Age: 34 years old Clinical history: Visual disturbance; Patient HX: RT eye blurred, rue tingling, ? ms TECHNIQUE: Imaging protocol: MR of the head without and with intravenous contrast. Contrast material: DOTAREM; Contrast volume: 20 ml; Contrast route: IV; COMPARISON: CT HEAD WO 04/24/2019 6:16 AM FINDINGS: Brain: Normal. No acute infarct. No hemorrhage. No significant white matter disease. No edema. Ventricles: Normal. No ventriculomegaly. Bones/joints: Unremarkable. Soft tissues: Unremarkable. Sinuses: Normal as visualized. No acute sinusitis. Mastoid air cells: Normal as visualized. No mastoid effusion. Orbits: Unremarkable. IMPRESSION: No acute intracranial abnormality. Dictated and Authenticated by: Thompson Hernandez MD. Ordering:VALE Lr MD
[2019-06-28] MEDS: Fluorescein STRIPS 100/BOX 1 MG (16:48)
[2019-06-28] MEDS: Tetracaine 0.5% 4 ML BTL (16:48)
[2019-06-28] MEDS: valACYclovir 500 MG TAB 1000 MG PO (16:49)
[2019-06-28] MEDS: predniSONE 20 MG TAB 60 MG PO (16:50)
[2019-06-28 16:53] VITALS: BP 120/65; PULSE 72; RESP 19; TEMP 36.8; O2SAT 99
[2019-06-30 11:48] LABS: Lyme Ab w Rflx to Lyme Confirm Negative (Negative)
--- NOTE | 2019-07-01 11:46 | NUR.NOTE ---
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
[2019-07-01 19:59] LABS: Anaplasma phagocytophilum Negative (Negative); B. miyamotoi PCR Negative (Negative); Babesia divergens/MO-1 Negative (Negative); Babesia duncani Negative (Negative); Babesia microti Negative (Negative); Ehrlichia chaffeensis Negative (Negative); Ehrlichia ewingii/canis Negative (Negative); Ehrlichia muris eauclairensis Negative (Negative)
== END 2019-06-28 17:00 | disposition home or self-care (01) ==
PROVIDERS: Physician Assistant; Emergency Provider Student in an Organized Health Care Education/Training Program; PCP Physician Assistant Medical
DX: G51.0 Bell's palsy (principal); H53.8 Other visual disturbances; R20.2 Paresthesia of skin
CPT/HCPCS: 36415; 70553; 80053; 87798; 93005; 96360; 96361; 99285; 81003; 83735; 84484; 85025; 86618; 93010; J7512

== ENCOUNTER 2019-07-31 11:37 | Emergency (ER) | payer MEDICAID, SELFPAY ==
[2019-07-31] VITALS (12 sets, daily range): BP systolic 118–153; BP diastolic 80–100; PULSE 63–83; RESP 22; TEMP 36.6; O2SAT 98–100
[2019-07-31 12:43] LABS: Basophils % 0.9; Eosinophils % 2.4; HCT 44.3 % (36.0-46.0); HGB 15.2 g/dL (12.0-15.5); Lymphocytes % 31.3; Mean Corp. HGB Concentration 34.3 g/dL (32.0-36.0); Mean Corpuscular Hemoglobin 31.5 pg (27.0-33.0); Mean Corpuscular Volume 91.7 fL (80-95); Mean Platelet Volume 11.2 fL (8.0-11.0); Monocytes % 7.4; Neutrophils % 57.8; Platelet Count 244 x1000/uL (130-400); RBC 4.83 m/cumm (4.00-5.20); RBC Distribution Width 13.9 % (11.7-14.6); White Blood Cell Count 5.78 k/cumm (4.4-10.8)
[2019-07-31 12:44] LABS: Abs Immature Grans 0.01 k/cumm (0.0-0.09); Absolute Basophil Count 0.05 k/cumm (0.0-0.2); Absolute Eosinophil Count 0.14 k/cumm (0.0-0.7); Absolute Lymphocyte Count 1.81 k/cumm (1.2-3.4); Absolute Monocyte Count 0.43 k/cumm (0.11-0.7); Absolute Neutrophil Count 3.34 k/cumm (1.2-6.7); Immature Grans % 0.2 %
[2019-07-31 12:44] LABS: Bilirubin Negative (Negative); Blood Negative (Negative); Clarity Clear (Clear); Glucose Negative (Negative); Ketones Negative (Negative); Leukocyte Esterase Negative (Negative); Nitrite Negative (Negative); Urobilinogen 0.2 EU/dL (Up TO 0.2); pH 5.5 (5-8)
--- NOTE | 2019-07-31 12:48 | ED.GENADUL_ITS ---
Discharge Plan Disposition Patient Disposition: HOME Condition: Improving Discharge Details Chief Complaint: Abd Prob Clinical Impression: Abdominal pain, Nausea & vomiting, Constipation Primary Care Provider: German Campa ED Provider: Mallorie Lilly Home Meds and New Rx's Prescriptions: New ondansetron 4 mg tablet,disintegrating 4 mg PO TID PRN (Reason: nausea and vomiting) Qty: 6 RF: 0 docusate sodium [Colace] 100 mg capsule 100 mg PO BID Qty: 20 RF: 0 Continued ropinirole 1 MG tablet 2 mg PO HS RF: 0 prochlorperazine maleate [Compazine] 10 mg tablet 10 mg PO TID PRN (Reason: nausea and vomiting) Qty: 20 RF: 0 omeprazole 20 MG capsule,delayed release(DR/EC) 40 mg PO DAILY Qty: 30 RF: 0 diphenhydramine HCl 25 MG capsule 25 mg PO Q6H PRN (Reason: Vomiting) Qty: 12 RF: 0 venlafaxine 150 MG capsule,extended release 24hr 300 mg PO DAILY RF: 0 gabapentin 300 MG capsule 600 mg PO .QHS Qty: 30 RF: 0 acetaminophen [Tylenol] 325 MG tablet 650 mg PO PRN PRNRF: 0 Discharge Instructions Instructions: Constipation (ED), Acute Nausea and Vomiting (ED), Abdominal Pain (ED) Additional Instructions: Take the Zofran as needed directed for nausea and vomiting. Take the Colace as directed for constipation. You can try [id number] MiraLAX, stool softeners, enemas to help with constipation. You can also try prunes or prune juice which are natural stool softeners. You can also purchase besw-ptk-ywpiwki magnesium citrate to take as directed to help with constipation. Alternate tylenol and motrin as needed and directed for pain. Try ctzj-rtp-dogvxvl lidocaine patches to help as needed and directed for pain. Follow-up with your primary care doctor in 1 week. Return to the emergency department with any worsening or new concerning symptoms. Stand Alone Forms: Work Release Discharge Data Discharge Physician: Mallorie Lilly Medical Decision Making 1155 -- 34-year-old female with a history of anxiety, bipolar, migraine headache, hernia repair, hysterectomy presents with upper abdominal pain and vomiting for the past 2 weeks and constipation for the past week. Denies recent antibiotics, surgeries, or known sick contacts. Vitals within normal limits. Patient appears uncomfortable but nontoxic. Her abdomen appears round but is soft not significantly distended. She has periumbilical tenderness. Differential diagnosis includes small bowel obstruction, appendicitis, gastritis, colitis, UTI, electrolyte abnormality, dehydration. Will place an IV, bolus IV fluids, screening labs, urinalysis and CT abdomen and pelvis with a dose of morphine and Zofran. Patient complained of pain after return from radiology and given a dose of Toradol. 1430 -- Labs and imaging reviewed and unremarkable. Normal white blood cell count. Normal electrolytes. Urinalysis negative. CT negative for acute process but does note findings of constipation. Patient feels better and feels good to go home. She was advised on the importance of a balanced diet including water to help with regular bowel movements. She was advised on jevh-dlu-atmpecp treatments to help with constipation. She was given a prescription for Colace and Zofran. Advised to follow up with the primary care doctor for re-evaluation. Usual and customary return precautions given prior to discharge. Medical Records Medical records reviewed: Yes I reviewed the patient's medical records. Imaging Data Radiologic Study: Radiologist's impression: CT Abdomen And Pelvis With Contrast Exam date and time: 07/31/2019 12:35 PM Age: 34 years old Clinical indication: Abdominal pain TECHNIQUE: Imaging protocol: Computed tomography of the abdomen and pelvis with intravenous contrast. COMPARISON: CT ABDOMEN PELVIS W 03/16/2019 2:09 PM FINDINGS: Liver: Normal. No mass. Gallbladder and bile ducts: Normal. No calcified stones. No ductal dilation. Pancreas: Normal. No ductal dilation. Spleen: Normal. No splenomegaly. Adrenals: Left adrenal adenoma Kidneys and ureters: Normal. No hydronephrosis. Stomach and bowel: Diverticulosis of the rectosigmoid. No diverticulitis. Findings consistent with constipation. Appendix: Normal appendix Intraperitoneal space: Unremarkable. No free air. No significant fluid collection. Vasculature: Unremarkable. No abdominal aortic aneurysm. Lymph nodes: Unremarkable. No enlarged lymph nodes. Bladder: Unremarkable as visualized. Reproductive: Surgical resection of the uterus Bones/joints: Unremarkable. No acute fracture. Soft tissues: Unremarkable. IMPRESSION: No acute process Lab Data Lab results reviewed: Yes I reviewed the patient's lab results. Labs: Laboratory Tests Range/Units 07/31/19 07/31/19 07/31/19 12:10 12:10 12:40 WBC (4.4-10.8) k/cumm 5.78 RBC (4.00-5.20) m/cumm 4.83 Hgb (12.0-15.5) g/dL 15.2 Hct (36.0-46.0) % 44.3 MCV (80-95) fL 91.7 MCH (27.0-33.0) pg 31.5 MCHC (32.0-36.0) g/dL 34.3 RDW (11.7-14.6) % 13.9 Plt Count (130-400) x1000/uL 244 MPV (8.0-11.0) fL 11.2 H Immature Gran % % 0.2 Neutrophils % 57.8 Lymphocytes % 31.3 Monocytes % 7.4 Eosinophils % 2.4 Basophils % 0.9 Absolute Neutrophils (1.2-6.7) k/cumm 3.34 Absolute Lymphocytes (1.2-3.4) k/cumm 1.81 Absolute Monocytes (0.11-0.7) k/cumm 0.43 Absolute Eosinophils (0.0-0.7) k/cumm 0.14 Absolute Basophils (0.0-0.2) k/cumm 0.05 Sodium (136-145) mmol/L 141 Potassium (3.5-5.1) mmol/L 4.2 Chloride (98-107) mmol/L 106 Carbon Dioxide (21.0-32.0) mmol/L 25.2 Anion Gap (3-11) mmol/L 9.8 BUN (7-18) mg/dL 13 Creatinine (0.55-1.02) mg/dL 0.84 Estimated GFR/1.73 m2 (mL/min/1.73m2) >= 60.00 Glucose (74-106) mg/dL 100 Calcium (8.5-10.1) mg/dL 8.5 Total Bilirubin (0.2-1.0) mg/dL 0.2 AST (15-37) U/L 27 ALT (14-59) U/L 35 Alkaline Phosphatase (46-116) U/L 109 Total Protein (6.4-8.2) g/dL 7.1 Albumin (3.4-5.0) g/dL 3.3 L Lipase (73-393) U/L 89 Urine Color (Yellow) Yellow Urine Clarity (Clear) Clear Urine pH (5-8) 5.5 Ur Specific [place] (1.005-1.025) 1.020 Urine Protein (Negative) mg/dL Negative Urine Ketones (Negative) mg/dL Negative Urine Blood (Negative) Negative Urine Nitrite (Negative) Negative Urine Bilirubin (Negative) Negative Urine Urobilinogen (Up TO 0.2) EU/dL 0.2 Ur Leukocyte Esterase (Negative) Negative Urine Glucose (Negative) mg/dL Negative HPI General Mode of arrival: ambulatory . Date/Time Provider Initiated Documentation: 07/31/19 12:02 . Limitations to Documentation: no limitations . Information obtained by: patient . History of Present Illness 34 year old F presents to the emergency department with the chief complaint of abdominal pain , described as moderate, Quality is described as sharp and other (cramping), and is localized to the abdomen. Patient reports radiation to back (lower). Patient started experiencing this week(s) (2) and it has been constant. No relieving factors improve symptom(s), (no relief with tylenol or motrin) Other factors that worsen symptoms (supine) . Patient notes nausea/vomiting (multiple times daily, yellow in color ) and other (constipation x 1 week; small bm last night, brown in color); denies diaphoresis, fever/chills, headaches, loss of appetite, malaise, rash and seizure. Patient did receive the following treatments prior to arrival, none Related Data Home Medications Medication Instructions Recorded Confirmed ropinirole 2 mg PO HS 06/08/15 07/31/19 diphenhydramine HCl 25 mg PO Q6H PRN #12 cap 12/15/16 07/31/19 venlafaxine 300 mg PO DAILY 12/17/16 07/31/19 gabapentin 600 mg PO .QHS #30 capsule 12/18/16 07/31/19 acetaminophen [Tylenol] 650 mg PO PRN PRN 04/16/17 07/31/19 omeprazole 40 mg PO DAILY #30 cap 03/16/19 07/31/19 prochlorperazine maleate 10 mg PO TID PRN #20 tab 03/16/19 07/31/19 [Compazine] docusate sodium [Colace] 100 mg PO BID #20 cap 07/31/19 ondansetron 4 mg PO TID PRN #6 tab 07/31/19 Previous Rx's Medication Instructions Recorded diphenhydramine HCl 25 mg PO Q6H PRN #12 cap 12/15/16 gabapentin 600 mg PO .QHS #30 capsule 12/18/16 omeprazole 40 mg PO DAILY #30 cap 03/16/19 prochlorperazine maleate 10 mg PO TID PRN #20 tab 03/16/19 [Compazine] docusate sodium [Colace] 100 mg PO BID #20 cap 07/31/19 ondansetron 4 mg PO TID PRN #6 tab 07/31/19 Allergies Allergy/AdvReac Type Severity Reaction Status Date / Time Penicillins Allergy Severe Swelling Unverified 07/31/19 12:16 in throat granda flavor Allergy Intermediate throat Unverified 07/31/19 12:16 bleeds,swelling kiwi Allergy Intermediate throat Unverified 07/31/19 12:16 swells latex Allergy Mild rash,swelli Unverified 07/31/19 12:16 ng naproxen AdvReac Intermediate Nausea Unverified 07/31/19 12:16 sumatriptan [From Imitrex] AdvReac Mild Headache Unverified 07/31/19 12:16 wool Allergy Mild Skin Rash Uncoded 07/31/19 12:16 General Stated Complaint: Abd Prob IVAN: 3 Review of Systems All systems reviewed & are unremarkable except as noted in HPI and below Constitutional Constitutional: Reports as per HPI, Denies chills and Denies fever(s) Eyes Eyes: Denies blurry vision ENT Ears, Nose, Mouth, and Throat: Denies dizziness, Denies sore throat and Denies throat swelling Cardiovascular Cardiovascular: Denies chest pain and Denies dyspnea Respiratory Respiratory: Denies cough and Denies dyspnea Gastrointestinal Gastrointestinal: Reports abdominal pain, Reports constipation, Denies diarrhea and Reports vomiting Genitourinary Genitourinary: Denies hematuria and Denies dysuria Musculoskeletal Musculoskeletal: Denies back pain and Denies numbness Integumentary/Breasts Skin/Breast: Denies lesions and Denies rash Neurologic Neurologic: Denies dizziness, Denies focal weakness and Denies numbness Allergic/Immunologic Allergic/Immunologic: Denies throat swelling PFSH Medical History Anxiety BMI 35.0-35.9,adult GERD (gastroesophageal reflux disease) Migraine Pelvic pain in female Restless leg syndrome Right ovarian cyst Surgical History Diagnostic Laproscopy 2003 Weeks Hosp. bilateral ovarian cystectomies 11/2009. Diagnostic laparoscopy for chronic RLQ pain after LAVH in 2009. EGD - MAC (12/16/16) Hysterectomy, Laproscopic (~11/2009) LAVH, ovarian conservation for dysmenorrhea Oophrectomy, Right (06/09/15) Laparoscopic RSO with L salpingectomy for R sided pelvic pain. R corpus luteum cyst. no pathology. R wrist cyst removal 10/2002 Tooth extraction 07/2014 wisdom teeth extraction Social History Smoking/Tobacco Use Status: Current every day Tobacco Type: cigarettes Alcohol Intake: current Alcohol Intake frequency: a few times a week Drug use: Daily Substance use type: marijuana Do you feel safe at home: Yes Do you feel safe in your relationship?: Yes Exam Const General: cooperative and uncomfortable HENMT Head: normal to inspection Face and sinus: normal facial exam Eyes General: appearance normal, both eyes and all related structures EOM: EOM intact bilaterally Neck Neck: normal visual inspection and No submandibular swelling Lymphatic: no lymphadenopathy noted Chest Chest: normal inspection of the chest and no tenderness Resp Effort & Inspection: normal respiratory effort and able to speak in complete sentences Auscultation: clear to auscultation bilaterally Cardio Rate: regular rate Rhythm: regular rhythm GI Inspection: normal to inspection and distended Palpation: soft, not firm, not rigid and tender (diffuse, worse in mid abdomen) periumbilically Auscultation: hypoactive bowel sounds Skin General skin exam: no rashes or lesions noted Neuro General: alert, awake and oriented x3 Cognition: normal cognition Speech: speech normal Motor: muscle tone normal throughout Sensory Exam: no sensory deficits noted Extrem General: normal to inspection, full ROM, normal capillary refill, no calf tenderness bilaterally and no edema Psych Appearance: grossly normal Mental Status: mental status grossly normal Speech and Movement: speech and movement normal Affect: normal affect Course Vital Signs Vital signs: Vital Signs Temperature 97.9 F 07/31/19 11:44 Pulse 83 07/31/19 11:44 Respiratory Rate 22 07/31/19 11:44 Blood Pressure 153/95 H 07/31/19 11:44 Pulse Oximetry 98 07/31/19 11:44 Temperature 97.9 F 07/31/19 11:44 Temperature Source Skin 07/31/19 11:44 Pulse 83 07/31/19 11:44 Respiratory Rate 22 07/31/19 11:44 Respiratory Effort 07/31/19 11:48 Blood Pressure 153/95 H 07/31/19 11:44 Blood Pressure Position Sitting 07/31/19 11:44 Pulse Oximetry 98 07/31/19 11:44 Oxygen Delivery Method Room Air 07/31/19 11:44 Oxygen Flow Rate 0 07/31/19 11:44 Pain Level 10 07/31/19 11:44 Lab/Test Results Lab/Test Results: Laboratory Tests Range/Units 07/31/19 07/31/19 12:10 12:40 WBC (4.4-10.8) k/cumm 5.78 RBC (4.00-5.20) m/cumm 4.83 Hgb (12.0-15.5) g/dL 15.2 Hct (36.0-46.0) % 44.3 MCV (80-95) fL 91.7 MCH (27.0-33.0) pg 31.5 MCHC (32.0-36.0) g/dL 34.3 RDW (11.7-14.6) % 13.9 Plt Count (130-400) x1000/uL 244 MPV (8.0-11.0) fL 11.2 H Immature Gran % % 0.2 Neutrophils % 57.8 Lymphocytes % 31.3 Monocytes % 7.4 Eosinophils % 2.4 Basophils % 0.9 Absolute Neutrophils (1.2-6.7) k/cumm 3.34 Absolute Lymphocytes (1.2-3.4) k/cumm 1.81 Absolute Monocytes (0.11-0.7) k/cumm 0.43 Absolute Eosinophils (0.0-0.7) k/cumm 0.14 Absolute Basophils (0.0-0.2) k/cumm 0.05 Urine Color (Yellow) Yellow Urine Clarity (Clear) Clear Urine pH (5-8) 5.5 Ur Specific [place] (1.005-1.025) 1.020 Urine Protein (Negative) mg/dL Negative Urine Ketones (Negative) mg/dL Negative Urine Blood (Negative) Negative Urine Nitrite (Negative) Negative Urine Bilirubin (Negative) Negative Urine Urobilinogen (Up TO 0.2) EU/dL 0.2 Ur Leukocyte Esterase (Negative) Negative Urine Glucose (Negative) mg/dL Negative
[2019-07-31] MEDS: Normal Saline 1,000 ML 1000 ML IV (12:49)
[2019-07-31] MEDS: Ondansetron 4 MG/2 ML VIAL IVP (12:50)
[2019-07-31 12:57] LABS: ALT 35 U/L (14-59); AST 27 U/L (15-37); Albumin 3.3 g/dL (3.4-5.0); Alkaline Phosphatase 109 U/L (46-116); Anion Gap 9.8 mmol/L (3-11); BUN 13 mg/dL (7-18); Bilirubin, Total 0.2 mg/dL (0.2-1.0); CO2 25.2 mmol/L (21.0-32.0); CREATININE 0.84 mg/dL (0.55-1.02); Calcium 8.5 mg/dL (8.5-10.1); Chloride 106 mmol/L (98-107); Glucose 100 mg/dL (74-106); Lipase 89 U/L (73-393); Potassium 4.2 mmol/L (3.5-5.1); Sodium 141 mmol/L (136-145); Total Protein 7.1 g/dL (6.4-8.2)
--- NOTE | 2019-07-31 13:31 | DI.CT_ITS ---
EXAM: CT ABDOMEN PELVIS W CLINICAL HISTORY: Diffuse abdominal pain, vomiting, h/o abd surgery TECHNIQUE: Post IV contrast. Without oral contrast. COMPARISON: CT ABDOMEN PELVIS W from 03/16/2019 FINDINGS: The heart size is normal. The lung bases are clear. The liver, spleen, pancreas, gallbladder and k idneys are unremarkable. The appendix appears normal. The patient is status post hysterectomy. The bladder is unremarkable. There is a moderate quantity of stool. There is no free air or free fluid . No bowel dilatation or wall thickening is seen. The left ovary is unremarkable. The right ovary is not seen. No bony abnormalities are identified. IMPRESSION: No acute abnormality.
[2019-07-31] MEDS: Omnipaque 350 MG/ML 100 ML BTL IJ (13:33)
[2019-07-31] MEDS: Ketorolac 30 MG/ML VIAL (13:44)
--- NOTE | 2019-07-31 13:45 | NUR.NOTE ---
Nursing Note: Pt in room texting on cell phone. States pain 9/10 when asked, but continues to text. Dr. Lilly informed, orders given
--- NOTE | 2019-07-31 14:04 | DI.VRAD_ITS ---
PROCEDURE INFORMATION: Exam: CT Abdomen And Pelvis With Contrast Exam date and time: 07/31/2019 12:35 PM Age: 34 years old Clinical indication: Abdominal pain TECHNIQUE: Imaging protocol: Computed tomography of the abdomen and pelvis with intravenous contrast. COMPARISON: CT ABDOMEN PELVIS W 03/16/2019 2:09 PM FINDINGS: Liver: Normal. No mass. Gallbladder and bile ducts: Normal. No calcified stones. No ductal dilation. Pancreas: Normal. No ductal dilation. Spleen: Normal. No splenomegaly. Adrenals: Left adrenal adenoma Kidneys and ureters: Normal. No hydronephrosis. Stomach and bowel: Diverticulosis of the rectosigmoid. No diverticulitis. Findings consistent with constipation. Appendix: Normal appendix Intraperitoneal space: Unremarkable. No free air. No significant fluid collection. Vasculature: Unremarkable. No abdominal aortic aneurysm. Lymph nodes: Unremarkable. No enlarged lymph nodes. Bladder: Unremarkable as visualized. Reproductive: Surgical resection of the uterus Bones/joints: Unremarkable. No acute fracture. Soft tissues: Unremarkable. IMPRESSION: No acute process Dictated and Authenticated by: Elvie Lawson MD. Ordering:AVERY Nobles MD
[2019-07-31] MEDS: FAMOTIDINE 20 MG/50 ML BAG 200 MG IVPB (14:41)
== END 2019-07-31 15:55 | disposition home or self-care (01) ==
PROVIDERS: Emergency Provider Physician Assistant; PCP Physician Assistant Medical
DX: R10.10 Upper abdominal pain, unspecified (principal); R11.2 Nausea with vomiting, unspecified; K59.00 Constipation, unspecified
CPT/HCPCS: 80053; 83690; 96365; 96375; 99285; 74177; 81003; 85025; 99284; J1885; J2405; J3490

== ENCOUNTER 2019-08-03 22:02 | Outpatient (REF) | payer MEDICAID, SELFPAY | END 2019-08-03 22:22 | LOC: NCHCN 22:02 | PROVIDERS: PCP Physician Assistant Medical; Visit Provider Physician Assistant Medical | DX: N64.3 Galactorrhea not associated with childbirth (principal) | CPT/HCPCS: 84146; 84443 ==

== ENCOUNTER 2019-08-20 09:37 | Emergency (ER) | payer MEDICAID, SELFPAY ==
[2019-08-20] VITALS (13 sets, daily range): BP systolic 117–160; BP diastolic 81–102; PULSE 61–88; RESP 20; TEMP 36.7; O2SAT 97–100
--- NOTE | 2019-08-20 10:08 | W.ED.GENAD ---
Discharge Plan Disposition Patient Disposition: HOME Condition: Stable Discharge Details Chief Complaint: Abd Prob Clinical Impression: Abdominal pain, Hernia, umbilical, Nausea & vomiting Primary Care Provider: German Campa ED Provider: Miranda Pham Home Meds and New Rx's Prescriptions: New ondansetron HCl [Zofran] 4 mg tablet 4 mg PO Q8H PRN (Reason: nausea and vomiting) Qty: 10 RF: 0 Continued ropinirole 1 MG tablet 2 mg PO HS RF: 0 prochlorperazine maleate [Compazine] 10 mg tablet 10 mg PO TID PRN (Reason: nausea and vomiting) Qty: 20 RF: 0 omeprazole 20 MG capsule,delayed release(DR/EC) 40 mg PO DAILY Qty: 30 RF: 0 ondansetron 4 mg tablet,disintegrating 4 mg PO TID PRN (Reason: nausea and vomiting) Qty: 6 RF: 0 docusate sodium [Colace] 100 mg capsule 100 mg PO BID Qty: 20 RF: 0 diphenhydramine HCl 25 MG capsule 25 mg PO Q6H PRN (Reason: Vomiting) Qty: 12 RF: 0 venlafaxine 150 MG capsule,extended release 24hr 300 mg PO DAILY RF: 0 gabapentin 300 MG capsule 600 mg PO .QHS Qty: 30 RF: 0 acetaminophen [Tylenol] 325 MG tablet 650 mg PO PRN PRNRF: 0 Discharge Instructions Instructions: Umbilical Hernia (ED), Acute Nausea and Vomiting (ED) Additional Instructions: Follow up with primary care provider in 3-5 days. Return to ED sooner if any worsening or concerns. You were put on a call list for surgery. CT results show a small fat-containing umbilical hernia. No bowel involvement there is no obstruction of bowel. This is similar to previous CTs of your umbilical hernia that you have had before. Your labs are within normal limits, your urinalysis is within normal limits. Take Tylenol or ibuprofen and nausea medication as directed. Stand Alone Forms: Work Release Referrals: German Campa PA [Primary Care Provider] - Discharge Data Discharge Date/Time-TO BE ENTERED AT DEPARTURE: 08/20/19 13:14 Medical Decision Making 34-year-old female presents with midline abdominal tenderness. Reports having a known hernia and states that a surgeon was supposed to call me but I never heard from them. She was seen for similar complaints on July 31 of this year and was found to have a small fat-containing umbilical hernia and constipation. Labs obtained including CBC, CMP, urinalysis which were all within normal limits. 1233: Spoke with radiologist regarding CT abdomen pelvis. It again demonstrates fat-containing umbilical hernia. No bowel involvement. No small bowel obstruction, mildly dilated loops of bowel with fair to moderate stool retention. Plan is to discharge with follow up with surgery. Patient failed to mention that she had had a prior hernia repair in the this text was generated using [employer] system, please disregard any oddities of phrase or misspellings. Same area in 2017. Review of past medical records confirms this. Differential diagnosis includes but not limited to SBO, Strangulated hernia, Constipation, UTI, Vomiting, This text was generated using [employer] system, please disregard any oddities of phrase or misspellings. EXAM: CT ABDOMEN PELVIS W CLINICAL HISTORY: Umbilical hernia, abdominal pain TECHNIQUE: COMPARISON: CT ABDOMEN PELVIS W from 03/11/2019 CT ABDOMEN PELVIS W from 07/31/2019 FINDINGS: CT examination of the abdomen and pelvis was performed with bolus infusion of 100 cc of Omnipaque 350 and ingestion of dilute barium. Images obtained through the lung bases are unremarkable. There is a small fat containing umbilical hernia and small left-sided fat containing inguinal hernia. The liver and spleen appear normal. Pancreas appears normal. Gallbladder and bile ducts are CT normal. Adrenals and kidneys are unremarkable in appearance. No urinary tract calcification or obstruction. Abdominal aorta is of normal diameter and no vascular abnormality is seen. No abdominal or pelvic adenopathy. Patient has reportedly had a prior hysterectomy. Left ovary measures about 3 cm in diameter with an apparent partially collapsed cyst. No free fluid in the pelvis. Appendix is normal. There are few mildly dilated loops of small bowel in the mid abdomen with a nonspecific appearance. No evidence of obstruction. IMPRESSION: No evidence of acute intra-abdominal process. [id number]: Total DLP = 0.00 mGy-cm Ordered By: Miranda Pham Patient discharged home with Zofran prescription and instructed to follow-up with PCP in 3 to 5 days. 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 Discussed home care, verbalized understanding. Patient alert and oriented at discharge and hemodynamically stable. Medical Records Medical records reviewed: Yes I reviewed the patient's medical records. Lab Data Lab results reviewed: Yes I reviewed the patient's lab results. HPI General Date/Time Provider Initiated Documentation: 08/20/19 09:52. Limitations to Documentation: no limitations. Information obtained by: patient. HPI Narrative: 34-year-old female presents with abdominal pain associated with nausea and vomiting. This is been going on for about 2 weeks. She does have a known umbilical hernia which she reports has gotten worse and more tender over the last week. Denies diarrhea or constipation. No fever chills, no dysuria. Related Data Home Medications Medication Instructions Recorded Confirmed ropinirole 2 mg PO HS 06/08/15 08/20/19 diphenhydramine HCl 25 mg PO Q6H PRN #12 cap 12/15/16 08/20/19 venlafaxine 300 mg PO DAILY 12/17/16 08/20/19 gabapentin 600 mg PO .QHS #30 capsule 12/18/16 08/20/19 acetaminophen [Tylenol] 650 mg PO PRN PRN 04/16/17 08/20/19 omeprazole 40 mg PO DAILY #30 cap 03/16/19 08/20/19 prochlorperazine maleate 10 mg PO TID PRN #20 tab 03/16/19 07/31/19 [Compazine] docusate sodium [Colace] 100 mg PO BID #20 cap 07/31/19 08/20/19 ondansetron 4 mg PO TID PRN #6 tab 07/31/19 08/20/19 ondansetron HCl [Zofran] 4 mg PO Q8H PRN #10 tab 08/20/19 Previous Rx's Medication Instructions Recorded diphenhydramine HCl 25 mg PO Q6H PRN #12 cap 12/15/16 gabapentin 600 mg PO .QHS #30 capsule 12/18/16 omeprazole 40 mg PO DAILY #30 cap 03/16/19 prochlorperazine maleate 10 mg PO TID PRN #20 tab 03/16/19 [Compazine] docusate sodium [Colace] 100 mg PO BID #20 cap 07/31/19 ondansetron 4 mg PO TID PRN #6 tab 07/31/19 ondansetron HCl [Zofran] 4 mg PO Q8H PRN #10 tab 08/20/19 Allergies Allergy/AdvReac Type Severity Reaction Status Date / Time Penicillins Allergy Severe Swelling Unverified 08/20/19 09:46 in throat granda flavor Allergy Intermediate throat Unverified 08/20/19 09:46 bleeds,swelling kiwi Allergy Intermediate throat Unverified 08/20/19 09:46 swells latex Allergy Mild rash,swelli Unverified 08/20/19 09:46 ng naproxen AdvReac Intermediate Nausea Unverified 08/20/19 09:46 sumatriptan [From Imitrex] AdvReac Mild Headache Unverified 08/20/19 09:46 wool Allergy Mild Skin Rash Uncoded 08/20/19 09:46 General Stated Complaint: Abd Prob IVAN: 3 Review of Systems Narrative: Constitutional: Negative for weight loss, alert and oriented, well groomed, normal body habitus, appears uncomfortable. HEENT: Denies trauma, headaches, blurry vision, nasal discharge, sore throat, trouble swallowing. Chest: Denies chest pain, palpitations, irregular rhythm, hypertension. Respiratory: Denies Shortness of breath, cough, hemoptysis. GI: Positive abdominal pain and mass, positive nausea vomiting, no diarrhea, constipation. : Denies dysuria, hematuria, flank pain, vaginal bleeding, rectal bleeding. Neuro: Denies dizziness, blurry vision, weakness, syncope, headache or facial numbness. Hematologic: Denies easy bruising, intolerance to heat or cold, hair loss. [facility] Medical History Anxiety BMI 35.0-35.9,adult GERD (gastroesophageal reflux disease) Migraine Pelvic pain in female Restless leg syndrome Right ovarian cyst Surgical History Diagnostic Laproscopy 2002 Weeks Hosp. bilateral ovarian cystectomies 11/2009. Diagnostic laparoscopy for chronic RLQ pain after LAVH in 2009. EGD - MAC (12/16/16) Hysterectomy, Laproscopic (~11/2009) LAVH, ovarian conservation for dysmenorrhea Oophrectomy, Right (06/09/15) Laparoscopic RSO with L salpingectomy for R sided pelvic pain. R corpus luteum cyst. no pathology. R wrist cyst removal 10/2002 Tooth extraction 07/2014 wisdom teeth extraction Social History Smoking/Tobacco Use Status: Current every day Tobacco Type: cigarettes Alcohol Intake: current Alcohol Intake frequency: a few times a week Drug use: Daily Substance use type: marijuana Do you feel safe at home: Yes Do you feel safe in your relationship?: Yes Exam Const General: cooperative, healthy appearing and in distress Nutritional Appearance: obese Orientation: alert, awake and oriented x3 Resp Effort & Inspection: normal respiratory effort Auscultation: clear to auscultation bilaterally Cardio Rate: regular rate Rhythm: regular rhythm Heart Sounds: S1 normal and S2 normal GI Inspection: visible herniation (Palpable hernia above umbilicus- feels firm) Palpation: guarding and hernia umbilical Auscultation: hyperactive bowel sounds Course Vital Signs Vital signs: Vital Signs Temperature 36.7 C 08/20/19 09:43 Pulse 88 08/20/19 09:43 Respiratory Rate 20 08/20/19 09:43 Blood Pressure 160/102 H 08/20/19 09:43 Pulse Oximetry 98 08/20/19 09:43 Temperature 36.7 C 08/20/19 09:43 Temperature Source Skin 08/20/19 09:43 Pulse 88 08/20/19 09:43 Respiratory Rate 20 08/20/19 09:43 Respiratory Effort 08/20/19 09:48 Blood Pressure 160/102 H 08/20/19 09:43 Blood Pressure Position Sitting 08/20/19 09:43 Pulse Oximetry 98 08/20/19 09:43 Oxygen Delivery Method Room Air 08/20/19 09:43 Oxygen Flow Rate 0 08/20/19 09:43 Pain Level 08/20/19 09:43
[2019-08-20] MEDS: Omnipaque 350 MG/ML 50 ML BTL IJ (10:31)
[2019-08-20] MEDS: Ondansetron 4 MG/2 ML VIAL IVP (10:36)
[2019-08-20] MEDS: Normal Saline 1,000 ML 1000 ML IV (10:37)
[2019-08-20 10:56] LABS: Abs Immature Grans 0.01 k/cumm (0.0-0.09); Absolute Basophil Count 0.07 k/cumm (0.0-0.2); Absolute Eosinophil Count 0.11 k/cumm (0.0-0.7); Absolute Lymphocyte Count 1.58 k/cumm (1.2-3.4); Absolute Monocyte Count 0.45 k/cumm (0.11-0.7); Absolute Neutrophil Count 3.57 k/cumm (1.2-6.7); Basophils % 1.2; Eosinophils % 1.9; HCT 44.4 % (36.0-46.0); HGB 14.8 g/dL (12.0-15.5); Immature Grans % 0.2 %; Lymphocytes % 27.3; Mean Corp. HGB Concentration 33.3 g/dL (32.0-36.0); Mean Corpuscular Hemoglobin 30.6 pg (27.0-33.0); Mean Corpuscular Volume 91.7 fL (80-95); Mean Platelet Volume 11.3 fL (8.0-11.0); Monocytes % 7.8; Neutrophils % 61.6; Platelet Count 201 x1000/uL (130-400); RBC 4.84 m/cumm (4.00-5.20); RBC Distribution Width 13.6 % (11.7-14.6); White Blood Cell Count 5.79 k/cumm (4.4-10.8)
[2019-08-20 11:08] LABS: ALT 21 U/L (14-59); AST 14 U/L (15-37); Albumin 3.3 g/dL (3.4-5.0); Alkaline Phosphatase 91 U/L (46-116); Anion Gap 8.1 mmol/L (3-11); BUN 14 mg/dL (7-18); Bilirubin, Total 0.3 mg/dL (0.2-1.0); CO2 25.9 mmol/L (21.0-32.0); CREATININE 0.79 mg/dL (0.55-1.02); Calcium 8.4 mg/dL (8.5-10.1); Chloride 105 mmol/L (98-107); Glucose 99 mg/dL (74-106); Potassium 4.2 mmol/L (3.5-5.1); Sodium 139 mmol/L (136-145); Total Protein 6.5 g/dL (6.4-8.2)
[2019-08-20 11:53] LABS: Bilirubin Negative (Negative); Blood Negative (Negative); Clarity Clear (Clear); Glucose Negative (Negative); Ketones Negative (Negative); Leukocyte Esterase Negative (Negative); Nitrite Negative (Negative); Specific Gravity 1.015 (1.005-1.025); Urobilinogen 0.2 EU/dL (Up TO 0.2)
[2019-08-20] MEDS: Omnipaque 350 MG/ML 100 ML BTL IJ (12:04)
--- NOTE | 2019-08-20 12:08 | DI.CT_ITS ---
EXAM: CT ABDOMEN PELVIS W CLINICAL HISTORY: Umbilical hernia, abdominal pain TECHNIQUE: COMPARISON: CT ABDOMEN PELVIS W from 03/11/2019 CT ABDOMEN PELVIS W from 07/31/2019 FINDINGS: CT examination of the abdomen and pelvis was performed with bolus infusion of 100 cc of Omnipaque 350 and ingestion of dilute barium. Images obtained through the lung bases are unremarkable. There is a small fat containing umbilical h ernia and small left-sided fat containing inguinal hernia. The liver and spleen appear normal. Panc reas appears normal. Gallbladder and bile ducts are CT normal. Adrenals and kidneys are unremarkabl e in appearance. No urinary tract calcification or obstruction. Abdominal aorta is of normal diamet er and no vascular abnormality is seen. No abdominal or pelvic adenopathy. Patient has reportedly had a prior hysterectomy. Left ovary measures about 3 cm in diameter with an apparent partially collapsed cyst. No free fluid in the pelvis. Appendix is normal. There are few mildly dilated loops of small bowel in the mid abdomen with a nonspecific appearance. No evidence of obstruction. IMPRESSION: No evidence of acute intra-abdominal process.
--- NOTE | 2019-08-20 12:43 | NUR.NOTE ---
Nursing Note: referral for follow up to general surgery faxed. Margaret Mayorga
== END 2019-08-20 13:14 | disposition home or self-care (01) ==
PROVIDERS: Emergency Provider Registered Nurse Emergency; PCP Physician Assistant Medical
DX: K42.9 Umbilical hernia without obstruction or gangrene (principal); R10.33 Periumbilical pain; R11.2 Nausea with vomiting, unspecified
CPT/HCPCS: 80053; 96374; 96375; 96376; 99284; 74177; 81003; 85025; 99283; J2270; J2405; J3490; Q9967

== ENCOUNTER 2019-08-29 13:13 | Emergency (ER) | payer MEDICAID, SELFPAY ==
[2019-08-29 13:17] VITALS: BP 129/81; PULSE 79; RESP 18; TEMP 36.5; O2SAT 100
--- NOTE | 2019-08-29 13:18 | ED.GENADUL_ITS ---
Discharge Plan Disposition Patient Disposition: HOME Condition: Good Discharge Details Chief Complaint: Abd Prob Clinical Impression: Abdominal pain Primary Care Provider: German Campa ED Provider: Adeline Kulkarni Home Meds and New Rx's Prescriptions: Continued cyclobenzaprine 10 mg tablet 10 mg PO HS RF: 0 ropinirole 1 MG tablet 2 mg PO HS RF: 0 omeprazole 20 MG capsule,delayed release(DR/EC) 40 mg PO DAILY Qty: 30 RF: 0 docusate sodium [Colace] 100 mg capsule 100 mg PO BID Qty: 20 RF: 0 diphenhydramine HCl 25 MG capsule 25 mg PO Q6H PRN (Reason: Vomiting) Qty: 12 RF: 0 venlafaxine 150 MG capsule,extended release 24hr 300 mg PO DAILY RF: 0 gabapentin 300 MG capsule 600 mg PO .QHS Qty: 30 RF: 0 acetaminophen [Tylenol] 325 MG tablet 650 mg PO PRN PRNRF: 0 ondansetron HCl [Zofran] 4 mg tablet 4 mg PO Q8H PRN (Reason: nausea and vomiting) Qty: 10 RF: 0 Discharge Instructions Instructions: Abdominal Pain (ED) Additional Instructions: Encourage water intake. You may continue with management of your chronic abdominal pain as previously advised. If you develop fever/chills, increased abdominal pain, persistent bleeding or other new/worsening symptom please seek care urgently once again. Referrals: German Campa PA [Primary Care Provider] - Discharge Data Discharge Date/Time-TO BE ENTERED AT DEPARTURE: 08/29/19 16:08 Medical Decision Making Patient is a 34-year-old female, well-known to the department of myself, with chief complaint of abdominal pain. Patient has been here a multitude of times for her abdominal pain. This primarily revolves around a known umbilical hernia which she reports she is having repaired in 2 weeks. She reports that when she has chronic abdominal pain, nausea and vomiting, she had a fall this morning. She reports that approximately 2-1/2 hours prior to arrival, she tripped and fell striking her stomach. Denies hitting her head. No loss of consciousness. She denies any pain in her chest, shortness of breath. Did not land on her knees or her hands. Slowly fell directly on her abdomen. Since then, she reports severe nausea and states that she has had episodes of hematemesis x3. She reports that this was mixed with bile. She is not feeling lightheaded or dizzy. She has not had any loose stools or blood in the stool. She reports that she was nauseated prior to the fall but did not have any episodes of hematemesis. On exam, patient is resting comfortably. Vital signs are within normal limits. She does have pain directly over her probable umbilical hernia but exam is othe rwise fairly benign. No peritoneal findings. She is exquisitely tender over the hernia but this does feel soft with no abdominal findings. Given hematemesis and trauma, will obtain CT scan and laboratory evaluation. Will give IV acetaminophen and Zofran to help with symptomatic management. Labs reviewed. No leukocytosis. No significant electrolyte abnormality. Lipase is within normal limits. Urine is pending. CT reviewed by radiologist: FINDINGS: Liver: Stable prominent liver measuring approximately 18 cm in length. No mass. Gallbladder and bile ducts: Unremarkable.No calcified stones. No ductal dilation. Pancreas: Unremarkable. No ductal dilation. Spleen: Unremarkable. No splenomegaly. Adrenals: Unremarkable. No mass. Kidneys and ureters: Unremarkable. No hydronephrosis. Stomach and bowel: Unremarkable. No obstruction. No mucosal thickening. Appendix: Normal appendix. Intraperitoneal space: Unremarkable. No free air. No fluid collection. Vasculature: Unremarkable. No abdominal aortic aneurysm. Lymph nodes: Unremarkable. No enlarged lymph nodes. Bladder: Unremarkable as visualized. Reproductive: There has been a hysterectomy. Left ovary is again visualized, measuring 3 cm in size. Interval partial regression of the left ovarian corpus luteal cyst. Bones/joints: Unremarkable. No acute fracture. Soft tissues: Stable small umbilical and left inguinal hernias containing fat only. IMPRESSION: 1. No acute findings. 2. Stable small umbilical and left inguinal hernias containing fat only. Driscussed case with Dr. Broderick who reviewed patient's CT. Does not believe there is any emergent intervention with the patient's reported hematemesis or acute discomfort. Discussed CT findings and labs with patient. She is feeling improved. She has had no futher emesis. Unclear if the patient truly had hematemesis, given her mechanism of fall and symptoms this does not truly correlate. May be related to food intake. She feel improved after IV acetamenophin, protonix and zofran. She has persistent nausea, has antiemetics at home. She was given return precautions. Has upcoming surgical plan. All of her questions and concerns were addressed. kaycee is in agreemtn wi this plan. HPI General Mode of arrival: ambulatory . Date/Time Provider Initiated Documentation: 08/29/19 13:18 . Limitations to Documentation: no limitations . Information obtained by: patient and RN notes reviewed . History of Present Illness 34 year old F presents to the emergency department with the chief complaint of abdominal pain, described as severe, Quality is described as s tabbing, and is localized to the abdomen. Patient reports no radiation. Patient started experiencing this minute(s) and it has been constant. No relieving factors improve symptom(s), No exacerbating factors reported . Patient notes loss of appetite and nausea/vomiting (endorses vomiting x 3 with hematemesis noted); denies chest pain, cough, diaphoresis, fever/chills, headaches, seizure, shortness of breath and syncope. Patient did receive the following treatments prior to arrival, none Related Data Home Medications Medication Instructions Recorded Confirmed ropinirole 2 mg PO HS 06/08/15 08/29/19 diphenhydramine HCl 25 mg PO Q6H PRN #12 cap 12/15/16 08/29/19 venlafaxine 300 mg PO DAILY 12/17/16 08/29/19 gabapentin 600 mg PO .QHS #30 cap 12/18/16 08/29/19 acetaminophen [Tylenol] 650 mg PO PRN PRN 04/16/17 08/29/19 omeprazole 40 mg PO DAILY #30 cap 03/16/19 08/29/19 docusate sodium [Colace] 100 mg PO BID #20 cap 07/31/19 08/29/19 ondansetron HCl [Zofran] 4 mg PO Q8H PRN #10 tab 08/20/19 08/29/19 cyclobenzaprine 10 mg tablet 10 mg PO HS 08/25/19 08/29/19 Previous Rx's Medication Instructions Recorded diphenhydramine HCl 25 mg PO Q6H PRN #12 cap 12/15/16 gabapentin 600 mg PO .QHS #30 cap 12/18/16 omeprazole 40 mg PO DAILY #30 cap 03/16/19 docusate sodium [Colace] 100 mg PO BID #20 cap 01/04/20 ondansetron HCl [Zofran] 4 mg PO Q8H PRN #10 tab 08/20/19 Allergies Allergy/AdvReac Type Severity Reaction Status Date / Time Penicillins Allergy Severe Swelling Unverified 08/29/19 16:04 in throat granda flavor Allergy Intermediate throat Unverified 08/29/19 16:04 bleeds,swelling kiwi Allergy Intermediate throat Unverified 08/29/19 16:04 swells latex Allergy Mild rash,swelli Unverified 08/29/19 16:04 ng naproxen AdvReac Intermediate Nausea Unverified 08/29/19 16:04 sumatriptan [From Imitrex] AdvReac Mild Headache Unverified 08/29/19 16:04 wool Allergy Mild Skin Rash Uncoded 08/29/19 16:04 General IVAN: 3 Review of Systems Constitutional Constitutional: Reports as per HPI, Denies chills, Denies fatigue, Denies fever(s) and Denies headache(s) ENT Ears, Nose, Mouth, and Throat: Denies headache(s) Cardiovascular Cardiovascular: Reports as per HPI, Denies chest pain and Denies dyspnea Respiratory Respiratory: Reports as per HPI, Denies cough and Denies dyspnea Gastrointestinal Gastrointestinal: Reports as per HPI Musculoskeletal Musculoskeletal: Reports as per HPI and Denies back pain Integumentary/Breasts Skin/Breast: Reports as per HPI and Denies rash Neurologic Neurologic: Reports as per HPI and Denies headache(s) Endocrine Endocrine: Denies fatigue PFSH Medical History Anxiety BMI 35.0-35.9,adult GERD (gastroesophageal reflux disease) Migraine Pelvic pain in female Restless leg syndrome Right ovarian cyst Surgical History Diagnostic Laproscopy 2002 Weeks Hosp. bilateral ovarian cystectomies 11/2009. Diagnostic laparoscopy for chronic RLQ pain after LAVH in 2009. EGD - MAC (12/16/16) Hysterectomy, Laproscopic (~11/2009) LAVH, ovarian conservation for dysmenorrhea Oophrectomy, Right (06/09/15) Laparoscopic RSO with L salpingectomy for R sided pelvic pain. R corpus luteum cyst. no pathology. R wrist cyst removal 10/2002 Tooth extraction 07/2014 wisdom teeth extraction Social History Smoking/Tobacco Use Status: Current every day Tobacco Type: cigarettes Alcohol Intake: current Alcohol Intake frequency: a few times a week Drug use: Daily Substance use type: marijuana Current gender identity: female Do you feel safe at home: Yes Do you feel safe in your relationship?: Yes Exam Const General: cooperative, healthy appearing, comfortable, no acute distress and well developed Nutritional Appearance: well nourished and overweight Orientation: alert and awake HENMT Head: normal to inspection Mouth: moist mucous membranes Resp Effort & Inspection: normal respiratory effort, able to speak in complete sentences and no respiratory distress Auscultation: clear to auscultation bilaterally, no rales, no rhonchi and no wheezes Cardio Rate: regular rate Rhythm: regular rhythm Heart Sounds: S1 normal and S2 normal GI Inspection: normal to inspection, non-distended, no visible herniation and no visible pulsation Palpation: soft, no hepatosplenomegaly, no aortic enlargement, not firm, guarding (directly over hernia), hernia (supraumbilical), no pulsatile masses, not rigid and nontender Percussion: normal to percussion Auscultation: normal bowel sounds Back/Spine/Pelvis Back: no CVA tenderness Skin General skin exam: no rashes or lesions noted Trauma: no lacerations or abrasions Neuro General: alert and awake Cognition: normal cognition Speech: speech normal Gait: normal gait Psych Appearance: grossly normal and well kempt Mental Status: mental status grossly normal Speech and Movement: speech and movement normal
[2019-08-29] MEDS: Normal Saline 1,000 ML 1000 ML IV (13:53)
[2019-08-29] MEDS: Ondansetron 4 MG/2 ML VIAL IVP (13:54)
[2019-08-29] MEDS: Normal Saline Flush 10 ML SYR IVP (13:55)
[2019-08-29] MEDS: Pantoprazole 40 MG VIAL IVP (13:56)
[2019-08-29 13:57] LABS: Absolute Basophil Count 0.03 k/cumm (0.0-0.2); Absolute Eosinophil Count 0.02 k/cumm (0.0-0.7); Absolute Lymphocyte Count 1.51 k/cumm (1.2-3.4); Absolute Monocyte Count 0.33 k/cumm (0.11-0.7); Absolute Neutrophil Count 2.31 k/cumm (1.2-6.7); Basophils % 0.7; Eosinophils % 0.5; HCT 41.5 % (36.0-46.0); HGB 13.9 g/dL (12.0-15.5); Mean Corp. HGB Concentration 33.5 g/dL (32.0-36.0); Mean Corpuscular Volume 92.6 fL (80-95); Mean Platelet Volume 11.2 fL (8.0-11.0); Monocytes % 7.9; Neutrophils % 54.9; Platelet Count 204 x1000/uL (130-400); RBC 4.48 m/cumm (4.00-5.20); RBC Distribution Width 13.4 % (11.7-14.6)
[2019-08-29] MEDS: ACETAMINOPHEN 1,000 MG/100 ML BTL 400 MG IVPB (13:58)
[2019-08-29 14:00] LABS: ALT 53 U/L (14-59); AST 24 U/L (15-37); Albumin 3.4 g/dL (3.4-5.0); Alkaline Phosphatase 103 U/L (46-116); Anion Gap 7.3 mmol/L (3-11); BUN 14 mg/dL (7-18); Bilirubin, Total 0.3 mg/dL (0.2-1.0); CO2 27.7 mmol/L (21.0-32.0); CREATININE 0.99 mg/dL (0.55-1.02); Chloride 106 mmol/L (98-107); Glucose 89 mg/dL (74-106); Lipase 72 U/L (73-393); Sodium 141 mmol/L (136-145); Total Protein 6.6 g/dL (6.4-8.2)
[2019-08-29] MEDS: Normal Saline - Diluent 50 ML VIAL IV (14:46)
[2019-08-29] MEDS: Omnipaque 350 MG/ML 100 ML BTL IJ (15:01)
--- NOTE | 2019-08-29 15:02 | DI.CT_ITS ---
EXAM: CT ABDOMEN PELVIS W CLINICAL HISTORY: fell on her stomach, hematemesis since. TECHNIQUE: Imaging Protocol: Axial computed tomography images with coronal and sagittal reformatted images were created and reviewed CONTRAST MATERIAL: Intravenous: Omnipaque 350 Contrast volume:100 mL Oral: No COMPARISON: CT ABDOMEN PELVIS W from 08/20/2019 FINDINGS: ABDOMEN: Lung Bases: Normal where visualized. Liver: Normal density. No measurable mass. Gallbladder and biliary tract: No radiodense calculus or dilation. Pancreas: Normal density, no abnormal calcifications or inflammatory process. Spleen: Normal. Kidneys: Normal size, contour and axis. No radiodense stones or obstructive uropathy. No masses seen. Adrenal glands: No masses seen. Abdominal Aorta: Abdominal portion non-dilated. PELVIS: Bladder: Symmetric distention, no gross wall thickening. Bowel: No obstruction or bowel wall thickening. Peritoneal cavity: No ascites, collection or mesenteric inflammatory response. Stable small fat conta ining umbilical hernia. Bones: Within normal limits. Reproductive organs: Patient is status post hysterectomy. Left ovary is unremarkable. Lymph nodes: Unremarkable. Impression: No acute abnormality. DATA REPOSITORY: All CT scans at this facility are submitted to the National Radiology Data Registry (NRDR) Dose Index Registry (DIR) with the [employer] (ACR). RADIATION OPTIMIZATION: All CT scans at this facility use at least one of these dose optimization te chniques: automated exposure control; mA and/or kV adjustment per patient size (includes targeted exa ms where dose is matched to clinical indication); or iterative reconstruction.
--- NOTE | 2019-08-29 15:36 | DI.VRAD_ITS ---
PROCEDURE INFORMATION: Exam: CT Abdomen And Pelvis With Contrast Exam date and time: 08/29/2019 1:27 PM Age: 34 years old Clinical indication: Pain and injury or trauma; Fall; Initial encounter; Blunt; Generalized; Abdominal pain; Injury details: PT fell on stomach this am. PT has a known hernia scheduled for surgery in 2 weeks TECHNIQUE: Imaging protocol: Computed tomography of the abdomen and pelvis with intravenous contrast. Radiation optimization: All CT scans at this facility use at least one of these dose optimization techniques: automated exposure control; mA and/or kV adjustment per patient size (includes targeted exams where dose is matched to clinical indication); or iterative reconstruction. Contrast material: OMNI 350; Contrast volume: 100 ml; Contrast route: IV; COMPARISON: CT ABDOMEN PELVIS W 08/20/2019 12:05 PM FINDINGS: Liver: Stable prominent liver measuring approximately 18 cm in length. No mass. Gallbladder and bile ducts: Unremarkable.No calcified stones. No ductal dilation. Pancreas: Unremarkable. No ductal dilation. Spleen: Unremarkable. No splenomegaly. Adrenals: Unremarkable. No mass. Kidneys and ureters: Unremarkable. No hydronephrosis. Stomach and bowel: Unremarkable. No obstruction. No mucosal thickening. Appendix: Normal appendix. Intraperitoneal space: Unremarkable. No free air. No fluid collection. Vasculature: Unremarkable. No abdominal aortic aneurysm. Lymph nodes: Unremarkable. No enlarged lymph nodes. Bladder: Unremarkable as visualized. Reproductive: There has been a hysterectomy. Left ovary is again visualized, measuring 3 cm in size. Interval partial regression of the left ovarian corpus luteal cyst. Bones/joints: Unremarkable. No acute fracture. Soft tissues: Stable small umbilical and left inguinal hernias containing fat only. IMPRESSION: 1. No acute findings. 2. Stable small umbilical and left inguinal hernias containing fat only. Dictated and Authenticated by: Zoe Carson MD. Ordering:VALE Lr MD
[2019-08-29 16:00] VITALS: BP 115/87; PULSE 76; RESP 16; TEMP 36.7; O2SAT 98
== END 2019-08-29 16:08 | disposition home or self-care (01) ==
PROVIDERS: Emergency Provider Physician Assistant; PCP Physician Assistant Medical
DX: K42.9 Umbilical hernia without obstruction or gangrene (principal); R11.0 Nausea; R10.33 Periumbilical pain; G89.29 Other chronic pain; W18.30XA Fall on same level, unspecified, initial encounter; K92.0 Hematemesis
CPT/HCPCS: 36415; 80053; 83690; 96361; 96365; 96375; 99285; 74177; 81003; 85025; 99284; J0131; J2405; J3490

== ENCOUNTER 2019-08-31 01:29 | Outpatient (CLI) | payer MEDICAID, SELFPAY ==
--- NOTE | 2019-08-31 10:09 | DI.MAMMO_ITS ---
EXAM: [facility] MAMMO DIAGNOSTIC BI and U/S left breast CLINICAL HISTORY: BREAST LUMP N63.0, SEEN ON CT 02/2019. COMPARISON: No exams were available for comparison TECHNIQUE: Craniocaudal and mediolateral oblique Full Field Digital Mammography views of the bilater al breast with Computer Aided Diagnosis followed by Tomosynthesis and left breast ultrasound. FINDINGS: Mammography/Tomosynthesis: Masses/Architectural Distortion: None seen. Microcalcifictions: No suspicious pleomorphic-type are seen. Skin Thickening/Nipple Retraction: None. Left breast US: Echotexture: Normal appearance of the glandular tissue. Shadowing: No suspicious foci. Cyst: None. Solid lesions: 0.6 x 0.2 x 0.6 cm, benign-appearing lymph node at the 1 o'clock position 3 cm from th e nipple. No suspicious solid masses. Ductal dilation: None. IMPRESSION: 1. No evidence of malignancy is noted. 2. Unless there is more urgent need, follow-up screening mammography is recommended, as per [employer] guidelines. ACR BI-RAD Category- 1 Negative Breast Density - Category B - Scattered areas of fibroglandular density The findings were discussed with the patient on the date of the examination. A negative radiographic report should not delay biopsy if a dominant or clinically suspicious mass is present. Up to ten percent of cancers are not identified on mammography. A negative report may reinforce clinical impression. Adenosis and dense breasts may obscure an underlying neoplasm. False positive reports average 6 to 10%. Patient will receive a letter notifying them of these results.
== END 2019-08-31 01:49 ==
PROVIDERS: PCP Physician Assistant Medical; Visit Provider Physician Assistant Medical
DX: N63.21 Unspecified lump in the left breast, upper outer quadrant (principal); R59.0 Localized enlarged lymph nodes
CPT/HCPCS: 76642; 77062; 77066; G0279

== ENCOUNTER 2019-09-13 06:58 | Day surgery (SDC) | payer MEDICAID, SELFPAY ==
[2019-09-13 07:13] VITALS: BP 119/80; PULSE 87; RESP 16; TEMP 37.1; O2SAT 96
[2019-09-13] MEDS: Gabapentin 300 MG CAP 600 MG PO (07:46)
[2019-09-13] MEDS: Acetaminophen 500 MG TAB 1000 MG PO (07:46)
[2019-09-13] MEDS: Lactated Ringers 1,000 ML 100 ML IV (07:55)
[2019-09-13] MEDS: CLINDAMYCIN 600 MG/50 ML BAG 100 MG IVPB (08:40)
[2019-09-13] MEDS: Bupivacaine 0.25% Pres-Free 30 ML VIAL (09:13)
--- NOTE | 2019-09-13 09:34 | ROE_ITS ---
Date of service: 09/13/19 Time of Service: 09:34 Operative Note Operative Note DATE OF PROCEDURE: 09/13/19 PRE-OP DIAGNOSIS: recurrent umbilical hernia POST-OP DIAGNOSIS: same PROCEDURE: open hernia repair. no mesh SURGEON: Sejal Davis BILLING AND QUALITY TECHNICIAN: Janie Carroll ANESTHESIA: GETA and spinal ESTIMATED BLOOD LOSS: 5 PATHOLOGY: none sent COMPLICATIONS: None Patient was transported to: same day Patient's condition: stable Procedure Description: SURGEON: Sejal Davis DO ANESTHESIA: MAC. ESTIMATED BLOOD LOSS: Less than 5 mL. COMPLICATIONS: The patient tolerated the procedure well without complications. INDICATIONS: The patient is seen at the request of for symptomatic umbilical hernia and is here today for repair. Informed consent was obtained, explaining risks and benefits of the procedure including but not limited to bleeding, infection, pneumonia, blood clots, recurrence, chronic pain, chronic numbness, reaction to mesh necessitating removal, complications of anesthesia and other unforetold complications. DESCRIPTION OF PROCEDURE: The patient was brought to the operating suite and placed in supine position. Anesthesia was administered per the Department of Anesthesia. Patient prepped and draped in the usual sterile fashion using DuraPrep scrub solution. IV antibiotics were administered. Pause for the cause was done. A 1-inch incision was made in the inferiorly to the umbilicus. Umbilicus was dissected off the fascia. The fascia was dissected off from surrounding tissue. There is omentum portruding. This was returned to the abdomen. It is not infarcted. The dect is on 2-3mm. It is not even lg enough to place mesh. It is oversewn with 2-0 Prolene and was copiously irrigated. Deep tissue was approximated with 3-0 Vicryl and skin was approximated with 4-0 Monocryl in a running subcuticular fashion. Steri tape and sterile dressings are applied. The patient tolerated the procedure well without complications and was transferred to recovery room in stable condition. SEJAL DAVIS DO
--- NOTE | 2019-09-13 09:38 | PDOC.DSDIS_ITS ---
Discharge Plan Disposition Patient Disposition: HOME Condition: Good Discharge Details Reason For Visit: umbilical hernia repair Attending Provider: Sejal Broderick Primary Care Provider: German Campa Home Meds and New Rx's Prescriptions: New hydrocodone-acetaminophen [[place]] 5-325 mg tablet 1 tab PO Q6H PRN (Reason: pain) Qty: 10 RF: 0 Continued cyclobenzaprine 10 mg tablet 10 mg PO HS RF: 0 ropinirole 1 MG tablet 2 mg PO HS RF: 0 omeprazole 20 MG capsule,delayed release(DR/EC) 40 mg PO DAILY Qty: 30 RF: 0 docusate sodium [Colace] 100 mg capsule 100 mg PO BID Qty: 20 RF: 0 diphenhydramine HCl 25 MG capsule 25 mg PO Q6H PRN (Reason: Vomiting) Qty: 12 RF: 0 venlafaxine 150 MG capsule,extended release 24hr 300 mg PO DAILY RF: 0 gabapentin 300 MG capsule 600 mg PO .QHS Qty: 30 RF: 0 acetaminophen [Tylenol] 325 MG tablet 650 mg PO PRN PRNRF: 0 ondansetron HCl [Zofran] 4 mg tablet 4 mg PO Q8H PRN (Reason: nausea and vomiting) Qty: 10 RF: 0 Discharge Orders Discharge Orders: Discharge Order (Routine); Ordered 09/13/19 Ordered By: Sejal Broderick DS: Diagnosis Discharge Diagnosis (1) Umbilical hernia: Status: Acute
[2019-09-13 09:45] VITALS: BP 137/79; PULSE 69; RESP 16; TEMP 36.7; O2SAT 100
[2019-09-13 09:50] VITALS: BP 139/85; PULSE 68; RESP 16; TEMP 36.7; O2SAT 100
[2019-09-13 09:55] VITALS: BP 133/88; PULSE 69; RESP 15; TEMP 36.7; O2SAT 100
[2019-09-13 10:10] VITALS: BP 140/91; PULSE 80; RESP 16; TEMP 36.6; O2SAT 100
[2019-09-13 10:53] VITALS: BP 125/83; PULSE 82; RESP 16; TEMP 36.4; O2SAT 97
[2019-09-13] MEDS: HYDROcodone 5/Acetaminophen 325 TAB PO (11:08)
== END 2019-09-13 12:30 | disposition home or self-care (01) ==
PROVIDERS: PCP Physician Assistant Medical; Visit Provider Surgery
PROC: (CPT 49585; principal; 2019-09-13 08:15)
DX: K42.9 Umbilical hernia without obstruction or gangrene (principal); G89.18 Other acute postprocedural pain; K21.9 Gastro-esophageal reflux disease without esophagitis
CPT/HCPCS: 49585; 76942; J1100; J1885; J2001; J2250; J2405; J2704

== ENCOUNTER 2019-10-10 10:34 | Emergency (ER) | payer MEDICAID, SELFPAY ==
--- NOTE | 2019-10-10 10:35 | W.ED.GENAD ---
Discharge Plan Disposition Patient Disposition: HOME Condition: Good Discharge Details Chief Complaint: Nausea/Vomit/Diar Clinical Impression: Nausea & vomiting Primary Care Provider: German Campa ED Provider: Adeline Kulkarni Home Meds and New Rx's Prescriptions: New ondansetron 4 mg tablet,disintegrating 4 mg PO Q6H PRN (Reason: nausea and vomiting) Qty: 10 RF: 0 Continued cyclobenzaprine 10 mg tablet 10 mg PO HS RF: 0 ropinirole 1 MG tablet 2 mg PO HS RF: 0 omeprazole 20 MG capsule,delayed release(DR/EC) 40 mg PO DAILY Qty: 30 RF: 0 docusate sodium [Colace] 100 mg capsule 100 mg PO BID Qty: 20 RF: 0 diphenhydramine HCl 25 MG capsule 25 mg PO Q6H PRN (Reason: Vomiting) Qty: 12 RF: 0 venlafaxine 150 MG capsule,extended release 24hr 300 mg PO DAILY RF: 0 gabapentin 300 MG capsule 600 mg PO .QHS Qty: 30 RF: 0 acetaminophen [Tylenol] 325 MG tablet 650 mg PO PRN PRNRF: 0 ondansetron HCl [Zofran] 4 mg tablet 4 mg PO Q8H PRN (Reason: nausea and vomiting) Qty: 10 RF: 0 Discharge Instructions Instructions: Acute Nausea and Vomiting (ED) Additional Instructions: Continue to encourage water intake. You may advance diet as tolerated but please start with basic, easy to digest foods such as bananas, rice, applesauce, toast. You develop fevers, increased pain, inability stay hydrated or new/worsening symptom please seek care urgently once again. Otherwise, please follow-up with primary care provider this week for reevaluation. Stop smoking marijuana as this may be contributing to your nausea and vomiting. Stand Alone Forms: Work Release Referrals: German Campa PA [Primary Care Provider] - Discharge Data Discharge Date/Time-TO BE ENTERED AT DEPARTURE: 10/10/19 12:03 Medical Decision Making Patient is a 34-year-old female, well-known to myself in the department, presenting today with chief complaint of nausea and vomiting. She reports she is had nausea and vomiting for the past 5 days. Reports subjective fevers. Is currently feeling feverish and is afebrile on exam. States that she has had no vomiting today but has been holding it back. Is currently endorsing nausea. She denies abdominal pain. Patient has been here a multitude of times for this historically. She did have hernia repair 1 month ago and states that that has helped with her chronic abdominal pain. States that she is not been trying to hydrate and she is concerned that this may cause her to vomit more. Has not had any diarrhea. No hematemesis. Denies any recent travel. No known sick contacts. Patient does report that she smokes marijuana daily for sleep and nausea. On exam, patient appears nontoxic. She appears to be at her baseline. She appears well-hydrated. Abdomen is obese, nontender with no focal findings. Her incision appears to be healed well. Patient I discussed treatment options. I did discuss with her that as this sounds to be a recurrent issue for her based on chart review, she should consider cessation of marijuana as this may be linked to cannabinoid induced hyperemesis syndrome. I also discussed with her that she should be more closely in contact with her primary care for her chronic issues particularly given the recent outbreak of illness. We also discussed the number of CAT scan she has had historically and I am concerned she has had over 24 CT scans that I am able to review on record. Did not general wellness discussion with the patient. She reports she has not had any water intake in the past 5 days and continues to have nausea and vomiting, plan to hydrate the patient, obtain labs to evaluate primarily for electrolyte abnormalities and give IV ondansetron. She was prescribed ondansetron historically and has not taken it in 2 days. Patient feels improved after IV hydration and IV zofran. Labs reviewed without significant abnormalities noted. She is hydrating orally. Patient does report that she uses marijuana daily, we did discussed hyperemesis syndrome and I gave education on this. Patient has been here for N/V multiple times including an admission in 2017 at which time she had an EGD as well without findings to determine cause of her recurrent N/V. Patient discharged home. Encouraged hydration. Refilled her zofran as she is close to being out. She was given return precautions. ADvised she may also try to call PCP for outpatient treatment and encouraged that she f/u with them this week. She was given return precautions. Discussed advancign diet. All of her questions and concerns were addressed, she is in agreement with this plan. HPI General Mode of arrival: ambulatory. Date/Time Provider Initiated Documentation: 10/10/19 10:35. Limitations to Documentation: no limitations. Information obtained by: patient, family and RN notes reviewed. History of Present Illness 34 year old F presents to the emergency department with the chief complaint of Nausea and vomiting, described as similar to prior episodes (No vomiting today, currently nauseated. Denies abdominal pain), Patient started experiencing this day(s) (5) and it has been constant. No relieving factors improve symptom(s), No exacerbating factors reported . Patient notes no other symptoms.. Patient did receive the following treatments prior to arrival, none Related Data Home Medications Medication Instructions Recorded Confirmed ropinirole 2 mg PO HS 06/08/15 10/10/19 diphenhydramine HCl 25 mg PO Q6H PRN #12 cap 12/15/16 10/10/19 venlafaxine 300 mg PO DAILY 12/17/16 10/10/19 gabapentin 600 mg PO .QHS #30 cap 12/18/16 10/10/19 acetaminophen [Tylenol] 650 mg PO PRN PRN 04/16/17 10/10/19 omeprazole 40 mg PO DAILY #30 cap 03/16/19 10/10/19 docusate sodium [Colace] 100 mg PO BID #20 cap 07/31/19 10/10/19 ondansetron HCl [Zofran] 4 mg PO Q8H PRN #10 tab 08/20/19 10/10/19 cyclobenzaprine 10 mg tablet 10 mg PO HS 08/25/19 10/10/19 ondansetron 4 mg PO Q6H PRN #10 tab 10/10/19 Previous Rx's Medication Instructions Recorded diphenhydramine HCl 25 mg PO Q6H PRN #12 cap 12/15/16 gabapentin 600 mg PO .QHS #30 cap 12/18/16 omeprazole 40 mg PO DAILY #30 cap 03/16/19 docusate sodium [Colace] 100 mg PO BID #20 cap 07/31/19 ondansetron HCl [Zofran] 4 mg PO Q8H PRN #10 tab 08/20/19 ondansetron 4 mg PO Q6H PRN #10 tab 10/10/19 Allergies Allergy/AdvReac Type Severity Reaction Status Date / Time Penicillins Allergy Severe Swelling Unverified 10/10/19 10:40 in throat granda flavor Allergy Intermediate throat Unverified 09/22/19 09:07 bleeds,swelling kiwi Allergy Intermediate throat Unverified 09/22/19 09:07 swells latex Allergy Mild rash,swelli Unverified 09/22/19 09:07 ng naproxen AdvReac Intermediate Nausea Unverified 09/22/19 09:07 sumatriptan [From Imitrex] AdvReac Mild Headache Unverified 09/22/19 09:07 wool Allergy Mild Skin Rash Uncoded 09/22/19 09:07 General IVAN: 3 Review of Systems Constitutional Constitutional: Reports as per HPI, Denies chills, Denies fatigue, Reports fever(s) (Subjective fevers) and Denies headache(s) ENT Ears, Nose, Mouth, and Throat: Denies headache(s) Cardiovascular Cardiovascular: Reports as per HPI, Denies chest pain and Denies dyspnea Respiratory Respiratory: Reports as per HPI, Denies cough and Denies dyspnea Gastrointestinal Gastrointestinal: Reports as per HPI Musculoskeletal Musculoskeletal: Reports as per HPI and Denies back pain Integumentary/Breasts Skin/Breast: Reports as per HPI and Denies rash Neurologic Neurologic: Reports as per HPI and Denies headache(s) Endocrine Endocrine: Denies fatigue PFSH Medical History Anxiety BMI 35.0-35.9,adult GERD (gastroesophageal reflux disease) Migraine Pelvic pain in female Restless leg syndrome Right ovarian cyst Umbilical hernia (Acute) Surgical History Diagnostic Laproscopy 2002 [facility] bilateral ovarian cystectomies 11/2009. Diagnostic laparoscopy for chronic RLQ pain after LAVH in 2009. EGD - MAC (12/16/16) History of umbilical hernia repair (Acute ~09/13/19) Hysterectomy, Laproscopic (~11/2009) LAVH, ovarian conservation for dysmenorrhea Oophrectomy, Right (06/09/15) Laparoscopic RSO with L salpingectomy for R sided pelvic pain. R corpus luteum cyst. no pathology. R wrist cyst removal 10/2002 Tooth extraction 07/2014 wisdom teeth extraction Social History (Reviewed 10/10/19 @ 11:02 by PIERCE Johnson Smoking/Tobacco Use Status: Current every day Tobacco Type: cigarettes Tobacco: How many years used: 13 Alcohol Intake: current Alcohol Intake frequency: holidays/special occasions only Alcohol type: beer, wine and hard liquor Drug use: Daily Substance use type: marijuana Details: Last used marijuana 09.12.19. Last used alcohol scorpian bowl at dinner about 1600. Current gender identity: female Do you feel safe at home: Yes Do you feel safe in your relationship?: Yes Exam Const General: cooperative, healthy appearing, comfortable, no acute distress and well developed Nutritional Appearance: well nourished and obese Orientation: alert and awake HENMT Head: normal to inspection Mouth: moist mucous membranes Resp Effort & Inspection: normal respiratory effort, able to speak in complete sentences and no respiratory distress Auscultation: clear to auscultation bilaterally, no rales, no rhonchi and no wheezes Cardio Rate: regular rate Rhythm: regular rhythm Heart Sounds: S1 normal and S2 normal GI Inspection: normal to inspection, incision (Appears to be healing well, no erythema, warmth or drainage) and obesity Palpation: soft, no hepatosplenomegaly, not firm, no guarding, no hepatosplenomegaly, not rigid and nontender Percussion: normal to percussion Auscultation: normal bowel sounds Back/Spine/Pelvis Back: no CVA tenderness Skin General skin exam: no rashes or lesions noted Trauma: no lacerations or abrasions Neuro General: patient alert and patient awake Cognition: normal cognition Speech: speech normal Gait: normal gait Psych Appearance: grossly normal and well kempt Mental Status: mental status grossly normal Speech and Movement: speech and movement normal
[2019-10-10 10:36] VITALS: BP 146/87; PULSE 79; TEMP 36.7; O2SAT 99
[2019-10-10 11:13] LABS: Abs Immature Grans 0.01 k/cumm (0.0-0.09); Absolute Lymphocyte Count 1.41 k/cumm (1.2-3.4); Absolute Monocyte Count 0.41 k/cumm (0.11-0.7); Absolute Neutrophil Count 2.95 k/cumm (1.2-6.7); HCT 43.9 % (36.0-46.0); HGB 14.8 g/dL (12.0-15.5); Immature Grans % 0.2 %; Lymphocytes % 28.9; Mean Corp. HGB Concentration 33.7 g/dL (32.0-36.0); Mean Corpuscular Hemoglobin 30.8 pg (27.0-33.0); Mean Corpuscular Volume 91.5 fL (80-95); Mean Platelet Volume 10.2 fL (8.0-11.0); Monocytes % 8.4; Neutrophils % 60.5; Platelet Count 217 x1000/uL (130-400); RBC Distribution Width 13.4 % (11.7-14.6); White Blood Cell Count 4.88 k/cumm (4.4-10.8)
[2019-10-10] MEDS: Normal Saline Flush 10 ML SYR IVP (11:13)
[2019-10-10] MEDS: Normal Saline 1,000 ML 1000 ML IV (11:13)
[2019-10-10] MEDS: Ondansetron 4 MG/2 ML VIAL IVP (11:13)
[2019-10-10 11:36] LABS: ALT 22 U/L (14-59); AST 15 U/L (15-37); Albumin 3.3 g/dL (3.4-5.0); Alkaline Phosphatase 93 U/L (46-116); Anion Gap 9.5 mmol/L (3-11); BUN 11 mg/dL (7-18); Bilirubin, Total 0.2 mg/dL (0.2-1.0); CO2 26.5 mmol/L (21.0-32.0); CREATININE 0.87 mg/dL (0.55-1.02); Calcium 8.3 mg/dL (8.5-10.1); Chloride 105 mmol/L (98-107); Glucose 95 mg/dL (74-106); Sodium 141 mmol/L (136-145)
[2019-10-10 11:40] VITALS: BP 129/90; PULSE 71; RESP 18; TEMP 36.6; O2SAT 99
== END 2019-10-10 12:03 | disposition home or self-care (01) ==
PROVIDERS: Emergency Provider Physician Assistant; PCP Physician Assistant Medical
DX: R11.2 Nausea with vomiting, unspecified (principal); F12.10 Cannabis abuse, uncomplicated
CPT/HCPCS: 36415; 80053; 96361; 96374; 99284; 85025; 99283; J2405

== ENCOUNTER 2019-10-26 02:02 | Outpatient (CLI) | payer MEDICAID, SELFPAY ==
[2019-10-29 04:37] LABS: SARS-CoV-2 RNA Undetected (Undetected); SARS-CoV-2 Specimen Source Nasopharynx
== END 2019-10-26 02:22 ==
PROVIDERS: PCP Physician Assistant Medical; Visit Provider Physician Assistant Medical
DX: Z20.828 Contact with and (suspected) exposure to other viral communicable diseases (principal); R05 Cough
CPT/HCPCS: U0003

== ENCOUNTER 2019-11-29 16:48 | Outpatient (REF) | payer MEDICAID, SELFPAY ==
[2019-11-30 18:31] LABS: COVID-19 RT-PCR UVMMC Result Negative (Negative)
== END 2019-11-29 17:08 ==
LOC: NCHCN 16:48
PROVIDERS: PCP Physician Assistant Medical; Visit Provider Nurse Practitioner Family
DX: Z20.828 Contact with and (suspected) exposure to other viral communicable diseases (principal)
CPT/HCPCS: U0003

== ENCOUNTER 2020-02-26 07:59 | Emergency (ER) | payer MEDICAID, SELFPAY ==
--- NOTE | 2020-02-26 08:01 | W.ED.GENAD ---
Discharge Plan Disposition Patient Disposition: HOME Condition: Good Discharge Details Chief Complaint: Abd Prob Clinical Impression: Abdominal pain, Nausea & vomiting Primary Care Provider: German Campa ED Provider: Adeline Kulkarni Home Meds and New Rx's Prescriptions: New ondansetron 4 mg tablet,disintegrating 4 mg PO Q6H PRN (Reason: nausea and vomiting) Qty: 14 RF: 0 Continued cyclobenzaprine 10 mg tablet 10 mg PO HS RF: 0 ropinirole 1 MG tablet 2 mg PO HS RF: 0 omeprazole 20 MG capsule,delayed release(DR/EC) 40 mg PO DAILY Qty: 30 RF: 0 diphenhydramine HCl 25 MG capsule 25 mg PO Q6H PRN (Reason: Vomiting) Qty: 12 RF: 0 venlafaxine 150 MG capsule,extended release 24hr 300 mg PO DAILY RF: 0 gabapentin 300 MG capsule 600 mg PO .QHS Qty: 30 RF: 0 acetaminophen [Tylenol] 325 MG tablet 650 mg PO PRN PRNRF: 0 Discharge Instructions Instructions: Acute Nausea and Vomiting (ED), Abdominal Pain (ED) Additional Instructions: This sounds to be area of discomfort associated with your surgery this spring, I would like for you to follow-up once again with Dr. Broderick. Please call her office on Friday to schedule follow-up appointment, number listed below. I would also like for you to follow-up with your primary care regarding your chronic nausea and vomiting. And refill your Zofran if you have any recurrence of your symptoms. Please consider cutting back on soda and marijuana as these things may also be contributing to your abdominal discomfort and recurrent nausea and vomiting. Instead, please try to hydrate primarily with water. If you develop fever/chills, increased pain, inability stay hydrated or other new/worsening symptoms please seek care urgently once again. Stand Alone Forms: Work Release Referrals: German Campa PA [Primary Care Provider] - Sejal Broderick DO [OSTEOPATHIC DOCTOR] - Medical Decision Making Patient is a pleasant 35-year-old female, well-known to myself in the department, with chief complaint of abdominal pain. Patient reports that she has recurrent discomfort at the area of her previously repaired umbilical hernia. Indicates approximately 3 cm above the umbilicus as area of discomfort. States the pain began recurring a few days ago and has been intermittent since then. States the pain is worse with laying on her abdomen at night. States that currently the pain is diminished. States that yesterday she did have some nausea and vomiting and associated this with the presumed recurrent hernia. Has not had a change in her appetite. No weight loss. Has not noted any blood in her stool, no melena or hematochezia. States that she can occasionally have some difficulty with constipation but this tends to be baseline and she believes a dietary base. She is noted improvement with water intake and does report that she is taking stool softeners historically. Denies any change in urinary habits. No vomiting today. Has had Pepsi thus far today for p.o. intake. Patient does smoke marijuana daily. Has had multiple episodes of recurrent nausea and vomiting historically. Patient reports that she is only here today at the request of her workplace that request that she have a note from a physician giving her return to work capabilities. She is not endorsing pain while at work. Since the pain is primarily when laying on her stomach trying to go to sleep. On exam, patient has an overweight female. She appears nontoxic and is resting comfortably. Appears well-hydrated. Lungs are clear, normal cardiac exam. No peritoneal findings on exam. There is a focal area of discomfort at 3 cm above the umbilicus. However, this does not seem reproducible. Patient is distracted I am able to examine her abdomen without any evidence of discomfort. Do not appreciate any large defect. Small area of swelling, no erythema, warmth. It is not hard. No evidence to suggest incarcerated hernia. no deeper abdominal pain to suggest appendicitis or other acute abdominal process. She is able to sit up and move about the room without any evidence of discomfort. This time, do not see any evidence to suggest an acutely surgical abdomen. However, as this is area of discomfort associated previous surgeries, I did advise follow-up with her surgeon to have this reevaluated. I did review previous medical records. Patient did have this repaired in August with Dr. Cabezas. At that time, patient had a 2 to 3 mm defect that was stitched closed. Patient also had a ventral hernia repaired [place] [address] Browne at which time mesh was placed. I will give her a work note stating she may return to work. I will refill her Zofran as this has worked well for her historically she is currently out. I did discuss with her once again that I am concerned that her persistent marijuana use may be associated with her recurrence of her nausea and vomiting. We also discussed that persistent soda intake may also cause increased abdominal discomfort and GI upset. She was given return precautions. She will follow-up with primary care as well as general surgeon. All of her questions and concerns were addressed and she is in agreement this plan. HPI General Mode of arrival: ambulatory. Date/Time Provider Initiated Documentation: 02/26/20 08:00. Limitations to Documentation: no limitations. Information obtained by: patient and RN notes reviewed. History of Present Illness 35 year old F presents to the emergency department with the chief complaint of abdominal discomfort, nausea and vomiting, described as moderate and similar to prior episodes, with intensity rated at 5. Quality is described as aching, and is localized to the abdomen. Patient reports no radiation. Patient started experiencing this day(s) and it has been intermittent. other things that improve symptom(s), (being upright) Other factors that worsen symptoms (laying on stomach) . Patient notes nausea/vomiting (nausea this AM, none currently, no vomiting); denies chest pain, cough, fever/chills, loss of appetite and rash. Patient did receive the following treatments prior to arrival, none Related Data Home Medications Medication Instructions Recorded Confirmed ropinirole 2 mg PO HS 06/08/15 02/26/20 diphenhydramine HCl 25 mg PO Q6H PRN #12 cap 12/15/16 02/26/20 venlafaxine 300 mg PO DAILY 12/17/16 02/26/20 gabapentin 600 mg PO .QHS #30 cap 12/18/16 02/26/20 acetaminophen [Tylenol] 650 mg PO PRN PRN 04/16/17 02/26/20 omeprazole 40 mg PO DAILY #30 cap 03/16/19 02/26/20 cyclobenzaprine 10 mg tablet 10 mg PO HS 08/25/19 02/26/20 ondansetron 4 mg PO Q6H PRN #14 tab 02/26/20 Previous Rx's Medication Instructions Recorded diphenhydramine HCl 25 mg PO Q6H PRN #12 cap 12/15/16 gabapentin 600 mg PO .QHS #30 cap 12/18/16 omeprazole 40 mg PO DAILY #30 cap 03/16/19 ondansetron 4 mg PO Q6H PRN #14 tab 02/26/20 Allergies Allergy/AdvReac Type Severity Reaction Status Date / Time Penicillins Allergy Severe Swelling Unverified 02/26/20 08:10 in throat granda flavor Allergy Intermediate throat Unverified 02/26/20 08:10 bleeds,swelling kiwi Allergy Intermediate throat Unverified 02/26/20 08:10 swells latex Allergy Mild rash,swelli Unverified 02/26/20 08:10 ng naproxen AdvReac Intermediate Nausea Unverified 02/26/20 08:10 sumatriptan [From Imitrex] AdvReac Mild Headache Unverified 02/26/20 08:10 wool Allergy Mild Skin Rash Uncoded 02/26/20 08:10 General IVAN: 3 Review of Systems Constitutional Constitutional: Reports as per HPI, Denies chills, Denies fatigue, Denies fever(s) and Denies headache(s) ENT Ears, Nose, Mouth, and Throat: Denies headache(s) Cardiovascular Cardiovascular: Reports as per HPI, Denies chest pain and Denies dyspnea Respiratory Respiratory: Reports as per HPI, Denies cough and Denies dyspnea Gastrointestinal Gastrointestinal: Reports as per HPI Musculoskeletal Musculoskeletal: Reports as per HPI and Denies back pain Integumentary/Breasts Skin/Breast: Reports as per HPI and Denies rash Neurologic Neurologic: Reports as per HPI and Denies headache(s) Endocrine Endocrine: Denies fatigue [facility] Medical History Anxiety BMI 35.0-35.9,adult GERD (gastroesophageal reflux disease) Migraine Pelvic pain in female Restless leg syndrome Right ovarian cyst Umbilical hernia (Acute) Surgical History Diagnostic Laproscopy 2003 [facility] bilateral ovarian cystectomies 11/2009. Diagnostic laparoscopy for chronic RLQ pain after LAVH in 2009. EGD - MAC (12/16/16) History of umbilical hernia repair (Acute ~09/13/19) Hysterectomy, Laproscopic (~11/2009) LAVH, ovarian conservation for dysmenorrhea Oophrectomy, Right (06/09/15) Laparoscopic RSO with L salpingectomy for R sided pelvic pain. R corpus luteum cyst. no pathology. R wrist cyst removal 10/2002 Tooth extraction 07/2014 wisdom teeth extraction Social History Smoking/Tobacco Use Status: Current every day Tobacco Type: cigarettes Tobacco: How many years used: 13 Alcohol Intake: current Alcohol Intake frequency: holidays/special occasions only Alcohol type: beer, wine and hard liquor Drug use: Daily Substance use type: marijuana Details: Last used marijuana 09.12.19. Last used alcohol scorpian bowl at dinner about 1600. Current gender identity: female Do you feel safe at home: Yes Do you feel safe in your relationship?: Yes Exam Const General: cooperative, healthy appearing, comfortable, no acute distress and well developed Nutritional Appearance: well nourished and obese Orientation: alert and awake HENSC Head: normal to inspection Mouth: moist mucous membranes Resp Effort & Inspection: normal respiratory effort, able to speak in complete sentences and no respiratory distress Auscultation: clear to auscultation bilaterally, no rales, no rhonchi and no wheezes Cardio Rate: regular rate Rhythm: regular rhythm Heart Sounds: S1 normal and S2 normal GI Inspection: obesity, no visible herniation and no visible pulsation Palpation: soft, no hepatosplenomegaly, not firm, no guarding, no hernias, no pulsatile masses, not rigid and tender (3cm above umbilicus) with no rebound tenderness Percussion: normal to percussion Auscultation: normal bowel sounds Skin General skin exam: no rashes or lesions noted Trauma: no lacerations or abrasions Neuro General: patient alert and patient awake Cognition: normal cognition Speech: speech normal Gait: normal gait Psych Appearance: grossly normal and well kempt Mental Status: mental status grossly normal Speech and Movement: speech and movement normal
[2020-02-26 08:07] VITALS: BP 146/92; PULSE 91; TEMP 36.4; O2SAT 97
[2020-02-26 08:11] LABS: Bilirubin Small (Negative); Blood Negative (Negative); Clarity Sl Cloudy (Clear); Glucose Negative (Negative); Ketones Negative (Negative); Leukocyte Esterase Negative (Negative); Nitrite Negative (Negative); Specific Gravity >= 1.030 (1.005-1.025); Urobilinogen 0.2 EU/dL (Up TO 0.2); pH 5.5 (5-8)
[2020-02-26 08:22] LABS: Bacteria Moderate HPF (Negative); C & S Indicated? No/Sq. Contamination; Crystals Negative HPF (Negative); Epithelial Cells Many HPF (Negative); Mucus Moderate (Negative); RBC Negative HPF (0-2); WBC 0-2 HPF (0-5)
--- NOTE | 2020-02-26 09:40 | NUR.NOTE ---
Referral faxed to [facility] Nursing Note:
== END 2020-02-26 08:37 | disposition home or self-care (01) ==
PROVIDERS: Emergency Provider Physician Assistant; PCP Physician Assistant Medical
DX: R11.2 Nausea with vomiting, unspecified (principal); R10.13 Epigastric pain; F12.10 Cannabis abuse, uncomplicated; Z98.890 Other specified postprocedural states
CPT/HCPCS: 81025; 99283; 81003; 81015

== ENCOUNTER 2020-05-21 14:10 | Emergency (ER) | payer MEDICAID, SELFPAY ==
--- NOTE | 2020-05-21 14:19 | ED.GENADUL_ITS ---
Discharge Plan Disposition Patient Disposition: HOME Condition: Good Discharge Details Clinical Impression: Ankle sprain, Numbness of foot Primary Care Provider: German Campa ED Provider: Adeline Kulkarni Home Meds and New Rx's Prescriptions: Continued ropinirole 1 MG tablet 2 mg PO HS RF: 0 omeprazole 20 MG capsule,delayed release(DR/EC) 40 mg PO DAILY Qty: 30 RF: 0 magnesium oxide 400 mg (241.3 mg magnesium) tablet 400 mg PO HS RF: 0 metoclopramide HCl 10 mg tablet 10 mg PO DIRECTED PRNRF: 0 gabapentin 300 MG capsule 800 mg PO .QHS RF: 0 diphenhydramine HCl 25 MG capsule 25 mg PO Q6H PRN (Reason: Vomiting) Qty: 12 RF: 0 venlafaxine 150 MG capsule,extended release 24hr 300 mg PO DAILY RF: 0 acetaminophen [Tylenol] 325 MG tablet 650 mg PO PRN PRNRF: 0 Discharge Instructions Instructions: Ankle Sprain (ED) Additional Instructions: Encourage rest, ice, elevation. General interview of nursing for discomfort. Please continue with brace will pain persist. Please follow-up with primary care in 1 week for reevaluation and having sensation rechecked. If you develop any new or worsening symptoms please seek care urgently once again. Referrals: German Campa PA [Primary Care Provider] - Discharge Data Discharge Date/Time-TO BE ENTERED AT DEPARTURE: 05/21/20 16:02 Medical Decision Making Patient is a 35-year-old female presents due to complaint of left ankle pain. She reports that yesterday she was walking down a hill when she slipped and suffered an internal rotational injury. Denies other injury at the time of the incident. States that initially she was having difficulty getting up secondary to the pain. However, she is been walking on the ankle since then. Has not taken anything for discomfort. States that she is concerned that her entire foot is numb. Denies any back pain. No radiating pain. On exam, patient was able to ambulate him to the department unassisted with antalgic gait. She has minimal swelling swelling over lateral malleolus. She is diffusely tender on the ankle both medially, laterally and anteriorly. She has no pain over the Achilles tendon and normal Schmid test. No pain over the proximal fibula. She is exquisitely tender and does not allow for much exam of the ankle secondary to this discomfort. Exam of the foot reveals normal capillary refill, 2+ distal pulses. Sharp dull and two-point discrimination is gone. She has a ring around her ankle distal to which she is insensate. With this, plan to image the ankle and the foot. FINDINGS: Bones/joints: There is no evidence of acute fracture.There is no evidence of malalignment or dislocation. Soft tissues: Lateral malleolar soft tissue swelling.. IMPRESSION: There is no evidence of acute fracture.There is no evidence of malalignment or dislocation. FINDINGS: Bones/joints: There is no evidence of acute fracture.There is no evidence of malalignment or dislocation. Soft tissues: Soft tissue swelling over the dorsum of the foot IMPRESSION: There is no evidence of acute fracture.There is no evidence of malalignment or dislocation. Discussed these findings with the patient. Anatomically, I am not able to make sense of her lack of sensation. Likely this is associated with a small amount of swelling laterally. Advised that we should allow the swelling to go down and reassess. Patient will be fitted with a lace up ankle brace. Encourage rest, ice, elevation. Tylenol and/or ibuprofen as needed for discomfort. Encouraged follow-up with primary care within the next week for reevaluation exam of sensation. This is not improving I did recommend referral to orthopedics. Return precautions were given. Patient is in agreement this plan. All of her questions or concerns were addressed. HPI General Mode of arrival: ambulatory . Date/Time Provider Initiated Documentation: 05/21/20 14:19 . Limitations to Documentation: no limitations . Information obtained by: patient and RN notes reviewed . History of Present Illness 35 year old F presents to the emergency department with the chief complaint of left ankle pain, described as severe, with intensity rated at 10. Quality is described as aching, and is localized to the left and lower extremity. Patient proximal. Patient started experiencing this day(s) (1) and it has been constant. Immobilization improves symptom(s), Movement worsens symptoms . Patient notes other (numbness in foot). Patient did receive the following treatments prior to arrival, none Related Data Home Medications Medication Instructions Recorded Confirmed ropinirole 2 mg PO HS 06/08/15 05/21/20 diphenhydramine HCl 25 mg PO Q6H PRN #12 cap 12/15/16 05/21/20 venlafaxine 300 mg PO DAILY 12/17/16 05/21/20 acetaminophen [Tylenol] 650 mg PO PRN PRN 04/16/17 05/21/20 omeprazole 40 mg PO DAILY #30 cap 03/16/19 05/21/20 gabapentin 800 mg PO .QHS 05/21/20 05/21/20 magnesium oxide 400 mg PO HS 05/21/20 05/21/20 metoclopramide HCl 10 mg PO DIRECTED PRN 05/21/20 05/21/20 Previous Rx's Medication Instructions Recorded diphenhydramine HCl 25 mg PO Q6H PRN #12 cap 12/15/16 omeprazole 40 mg PO DAILY #30 cap 03/16/19 Allergies Allergy/AdvReac Type Severity Reaction Status Date / Time Penicillins Allergy Severe Swelling Unverified 05/21/20 14:25 in throat granda flavor Allergy Intermediate throat Unverified 05/21/20 14:25 bleeds,swelling kiwi Allergy Intermediate throat Unverified 05/21/20 14:25 swells latex Allergy Mild rash,swelli Unverified 05/21/20 14:25 ng naproxen AdvReac Intermediate Nausea Unverified 05/21/20 14:25 sumatriptan [From Imitrex] AdvReac Mild Headache Unverified 05/21/20 14:25 wool Allergy Mild Skin Rash Uncoded 05/21/20 14:25 General IVAN: 3 Review of Systems Constitutional Constitutional: Reports as per HPI, Denies chills, Denies fever(s), Denies headache(s) and Denies weakness ENT Ears, Nose, Mouth, and Throat: Denies headache(s) Cardiovascular Cardiovascular: Reports as per HPI Respiratory Respiratory: Reports as per HPI and Denies cough Musculoskeletal Musculoskeletal: Reports as per HPI Integumentary/Breasts Skin/Breast: Reports as per HPI, Denies rash and Denies wounds Neurologic Neurologic: Reports as per HPI, Denies headache(s), Reports sensory deficit, Reports paresthesias and Denies weakness [facility] Medical History (Updated 05/21/20 @ 15:49 by RADHA Johnson) Anxiety BMI 35.0-35.9,adult GERD (gastroesophageal reflux disease) Migraine Pelvic pain in female Restless leg syndrome Right ovarian cyst Umbilical hernia Surgical History Diagnostic Laproscopy 2002 [facility] bilateral ovarian cystectomies 11/2009. Diagnostic laparoscopy for chronic RLQ pain after LAVH in 2009. EGD - MAC (12/16/16) History of umbilical hernia repair (~09/13/19) Hysterectomy, Laproscopic (~11/2009) LAVH, ovarian conservation for dysmenorrhea Oophrectomy, Right (06/09/15) Laparoscopic RSO with L salpingectomy for R sided pelvic pain. R corpus luteum cyst. no pathology. R wrist cyst removal 10/2002 Tooth extraction 07/2014 wisdom teeth extraction Social History Smoking/Tobacco Use Status: Current every day Tobacco Type: cigarettes Tobacco: How many years used: 13 Alcohol Intake: current Alcohol Intake frequency: holidays/special occasions only Alcohol type: beer, wine and hard liquor Drug use: Daily Substance use type: marijuana Details: Last used marijuana 09.12.19. Last used alcohol scorpian bowl at dinner about 1600. Current gender identity: female Do you feel safe at home: Yes Do you feel safe in your relationship?: Yes Exam Const General: cooperative, healthy appearing, comfortable, no acute distress, well developed and well groomed Nutritional Appearance: well nourished and obese Orientation: alert and awake Resp Effort & Inspection: normal respiratory effort, able to speak in complete sentences and no respiratory distress Cardio Rate: regular rate Rhythm: regular rhythm Skin General skin exam: no rashes or lesions noted Lesions: no lesions Rashes: no rashes Trauma: no lacerations or abrasions Neuro General: patient alert and patient awake Cognition: normal cognition Speech: speech normal Gait: antalgic Motor: muscle tone normal throughout Sensory Exam: no sensory deficits noted Extrem General: normal to inspection, full ROM, capillary refill normal, no joint enlargement, no pedal edema, no calf tenderness and abnormal gait (Antalgic) Left lower extremity: normal to inspection, normal capillary refill, knee (No pain of the proximal fibula) Details: normal to inspection, lower leg Details: normal to inspection; no erythema, no tenderness, no localized swelling, no palpable cords and no crepitus, ankle Details: normal to inspection, tenderness (Diffuse), swelling Details: laterally, no edema and normal ROM; no lacerations, no ecchymosis, no crepitus and achilles tendon exam normal (Intact, normal Schmid test) and foot Details: normal capillary refill, normal to inspection, toes with normal ROM, vascular exam Details: dorsalis pedis pulse present and normal capillary refill and motor-sensory exam Details: two point discrimination abnormal (Patient reports no sensation ankle down); no tenderness, no unusual warmth, no lacerations, no ecchymosis and no crepitus; abnormal ROM and no edema Psych Appearance: grossly normal and well kempt Mental Status: mental status grossly normal Speech and Movement: speech and movement normal
[2020-05-21 14:21] VITALS: BP 127/97; PULSE 89; TEMP 36.9; O2SAT 99
[2020-05-21] MEDS: Ketorolac 60 MG/2 ML VIAL IM (15:05)
[2020-05-21] MEDS: Acetaminophen 500 MG TAB 1000 MG PO (15:05)
--- NOTE | 2020-05-21 15:14 | DI.RAD_ITS ---
EXAM: XR ANKLE LT COMPLETE CLINICAL HISTORY: rolled ankle yesterday TECHNIQUE: COMPARISON: CR,XR XR FOOT LT COMPLETE from 05/21/2020 FINDINGS: Three views of the ankle and three views of the foot were obtained. The ankle mortise is well mainta ined. There is soft tissue swelling of the ankle and hindfoot. There is no evidence of acute fractu re. IMPRESSION: RADIATION DOSE DELIVERED: Total DLP
--- NOTE | 2020-05-21 15:31 | DI.VRAD_ITS ---
PROCEDURE INFORMATION: Exam: XR Left Ankle Exam date and time: 05/21/2020 3:11 PM Age: 35 years old Clinical indication: Injury or trauma; Fall; Blunt trauma; Ankle; Left TECHNIQUE: Imaging protocol: XR Left ankle. Views: 3 or more views. COMPARISON: No relevant prior studies available. FINDINGS: Bones/joints: There is no evidence of acute fracture.There is no evidence of malalignment or dislocation. Soft tissues: Lateral malleolar soft tissue swelling.. IMPRESSION: There is no evidence of acute fracture.There is no evidence of malalignment or dislocation. Dictated and Authenticated by: Elvie Lawson MD. Ordering:VALE Lr MD
--- NOTE | 2020-05-21 15:31 | DI.VRAD_ITS ---
PROCEDURE INFORMATION: Exam: XR Left Foot Complete Exam date and time: 05/21/2020 3:15 PM Age: 35 years old Clinical indication: Injury or trauma; Fall; Blunt trauma; Foot; Left TECHNIQUE: Imaging protocol: XR Left foot. Views: 3 or more views. COMPARISON: No relevant prior studies available. FINDINGS: Bones/joints: There is no evidence of acute fracture.There is no evidence of malalignment or dislocation. Soft tissues: Soft tissue swelling over the dorsum of the foot IMPRESSION: There is no evidence of acute fracture.There is no evidence of malalignment or dislocation. Dictated and Authenticated by: Elvie Lawson MD. Ordering:VALE Lr MD
== END 2020-05-21 16:02 | disposition home or self-care (01) ==
LOC: ER 15:56
PROVIDERS: Emergency Provider Physician Assistant; PCP Physician Assistant Medical
DX: S93.492A Sprain of other ligament of left ankle, initial encounter (principal); X50.9XXA Other and unspecified overexertion or strenuous movements or postures, initial encounter; R20.0 Anesthesia of skin
CPT/HCPCS: 96372; 99284; 73610; 73630; 99283; J1885; L1902

== ENCOUNTER 2020-06-01 16:00 | Emergency (ER) | payer MEDICAID, SELFPAY ==
[2020-06-01 16:04] VITALS: BP 160/93; PULSE 76; RESP 14; TEMP 36.8; O2SAT 97
--- NOTE | 2020-06-01 16:18 | W.ED.GENAD ---
Discharge Plan Disposition Patient Disposition: HOME Condition: Stable Discharge Details Clinical Impression: Headache, migraine Primary Care Provider: German Campa ED Provider: Miranda Pham Home Meds and New Rx's Prescriptions: New ondansetron HCl [Zofran] 4 mg tablet 4 mg PO Q8H PRN (Reason: nausea and vomiting) Qty: 10 RF: 0 Continued ropinirole 1 MG tablet 2 mg PO HS RF: 0 omeprazole 20 MG capsule,delayed release(DR/EC) 40 mg PO DAILY Qty: 30 RF: 0 magnesium oxide 400 mg (241.3 mg magnesium) tablet 400 mg PO HS RF: 0 metoclopramide HCl 10 mg tablet 10 mg PO DIRECTED PRNRF: 0 gabapentin 300 MG capsule 800 mg PO .QHS RF: 0 diphenhydramine HCl 25 MG capsule 25 mg PO Q6H PRN (Reason: Vomiting) Qty: 12 RF: 0 venlafaxine 150 MG capsule,extended release 24hr 300 mg PO DAILY RF: 0 acetaminophen [Tylenol] 325 MG tablet 650 mg PO PRN PRNRF: 0 Discharge Instructions Instructions: Migraine Headache (ED) Additional Instructions: Follow up with primary care provider in 3-5 days. Return to ED sooner if any worsening or concerns. Increase oral fluids. Please take Tylenol or Ibuprofen with food every 4-6 hours as needed for pain and swelling. Antinausea medications as directed. Referrals: German Campa PA [Primary Care Provider] - Discharge Data Discharge Date/Time-TO BE ENTERED AT DEPARTURE: 06/01/20 17:58 Medical Decision Making 35-year-old female presents to the ED chief complaint of migraine headache. Patient states that her headache began at 8:00 this morning upon awakening. She reports mood frontal pain and posterior neck pain. Her symptoms are consistent with her typical migraine headaches. She states that she has tried nausea medications at home which she has vomited up. Is associated with nausea vomiting. She does report aura and sensitivity to light and sound. Denies any head trauma or recent injuries. Denies any fever. No other complaints of pain at this time. She is alert and oriented x4 upon initial exam, no focal neuro deficits noted. Patient has received Benadryl, Toradol, Compazine and 1 L normal saline which has improved her symptoms. 1719: Patient feeling much better after the Toradol injection reports pain 6 out of 10 patient has exhibited no further nausea vomiting since being in the department. Patient is ambulatory to the bathroom without assistance, reports feeling much better and is requesting to be discharged home at this time. Discussed follow-up and strict return instructions, verbalized understanding. This text was generated using [employer] dictation system, please disregard any oddities of phrase or misspellings. HPI General Mode of arrival: ambulatory. Date/Time Provider Initiated Documentation: 06/01/20 16:05. Limitations to Documentation: no limitations. Information obtained by: patient. HPI Narrative: 35-year-old female presents to the ED chief complaint of migraine headache. Patient states that her headache began at 8:00 this morning upon awakening. She reports mood frontal pain and posterior neck pain. Her symptoms are consistent with her typical migraine headaches. She states that she has tried nausea medications at home which she has vomited up. Is associated with nausea vomiting. She does report aura and sensitivity to light and sound. Denies any head trauma or recent injuries. Denies any fever. No other complaints of pain at this time. She is alert and oriented x4 upon initial exam, no focal neuro deficits noted. Related Data Home Medications Medication Instructions Recorded Confirmed ropinirole 2 mg PO HS 06/08/15 05/21/20 diphenhydramine HCl 25 mg PO Q6H PRN #12 cap 12/15/16 05/21/20 venlafaxine 300 mg PO DAILY 12/17/16 05/21/20 acetaminophen [Tylenol] 650 mg PO PRN PRN 04/16/17 05/21/20 omeprazole 40 mg PO DAILY #30 cap 03/16/19 05/21/20 gabapentin 800 mg PO .QHS 05/21/20 05/21/20 magnesium oxide 400 mg PO HS 05/21/20 05/21/20 metoclopramide HCl 10 mg PO DIRECTED PRN 05/21/20 05/21/20 ondansetron HCl [Zofran] 4 mg PO Q8H PRN #10 tab 06/01/20 Previous Rx's Medication Instructions Recorded diphenhydramine HCl 25 mg PO Q6H PRN #12 cap 12/15/16 omeprazole 40 mg PO DAILY #30 cap 03/16/19 ondansetron HCl [Zofran] 4 mg PO Q8H PRN #10 tab 06/01/20 Allergies Allergy/AdvReac Type Severity Reaction Status Date / Time Penicillins Allergy Severe Swelling Unverified 06/01/20 16:08 in throat granda flavor Allergy Intermediate throat Unverified 06/01/20 16:08 bleeds,swelling kiwi Allergy Intermediate throat Unverified 06/01/20 16:08 swells latex Allergy Mild rash,swelli Unverified 06/01/20 16:08 ng naproxen AdvReac Intermediate Nausea Unverified 06/01/20 16:08 sumatriptan [From Imitrex] AdvReac Mild Headache Unverified 06/01/20 16:08 wool Allergy Mild Skin Rash Uncoded 06/01/20 16:08 General Stated Complaint: Headache IVAN: 2 Review of Systems Narrative: Constitutional: Negative for weight loss, alert and oriented, well groomed, normal body habitus, appears comfortable. HEENT: Denies trauma, blurry vision, nasal discharge, sore throat, trouble swallowing. Positive headache typical of migraines. Chest: Denies chest pain, palpitations, irregular rhythm, hypertension. Respiratory: Denies Shortness of breath, cough, hemoptysis. GI: Denies abdominal pain, diarrhea, constipation. Positive nausea vomiting. : Denies dysuria, hematuria, flank pain, rectal bleeding. Neuro: Denies dizziness, blurry vision, weakness, syncope, or facial numbness. Hematologic: Denies easy bruising, intolerance to heat or cold, hair loss. [facility] Medical History (Updated 06/01/20 @ 17:42 by Miranda Pham) Anxiety BMI 35.0-35.9,adult GERD (gastroesophageal reflux disease) Migraine Pelvic pain in female Restless leg syndrome Right ovarian cyst Umbilical hernia Surgical History Diagnostic Laproscopy 2002 We[facility] Hosp. bilateral ovarian cystectomies 11/2009. Diagnostic laparoscopy for chronic RLQ pain after LAVH in 2009. EGD - MAC (12/16/16) History of umbilical hernia repair (~09/13/19) Hysterectomy, Laproscopic (~11/2009) LAVH, ovarian conservation for dysmenorrhea Oophrectomy, Right (06/09/15) Laparoscopic RSO with L salpingectomy for R sided pelvic pain. R corpus luteum cyst. no pathology. R wrist cyst removal 10/2002 Tooth extraction 07/2014 wisdom teeth extraction Social History Smoking/Tobacco Use Status: Current every day Tobacco Type: cigarettes Tobacco: How many years used: 13 Smoking risk assessment performed?: Yes Alcohol Intake: current Alcohol Intake frequency: holidays/special occasions only Alcohol type: beer, wine and hard liquor Drug use: Daily Substance use type: marijuana Current gender identity: female Do you feel safe at home: Yes Do you feel safe in your relationship?: Yes Exam Narrative Exam Narrative: Constitutional: Alert and oriented x3. Appears stated age. Normal body habitus. Head: Normocephalic, no trauma. Eyes: Pupils PERRLA, Red reflex noted, EOM's intact. Eyelids symmetrical without lesions, discharge, or swelling. ENT: Bilateral TM's WNL, External ear normal to inspection, no mastoid TTP, swelling, or erythema, Nasal turbinates WNL, no nasal discharge. Normal dentition, Posterior pharynx WNL, no exudate. Chest: RRR, Normal S1, S2, distal pulses intact. Resp: Lungs clear to auscultation bilaterally, no wheezes, rales, or rhonchi. Musculoskeletal: Normal gait, 5/5 strength to all four extremities. Skin: No suspicious rashes or lesions. Capillary refill less than 2 sec. Neurologic: Cranial nerves II-XII intact. Alert and oriented x 3. DTR's intact. Hematologic/Lymphatic: No ecchymosis, no lymphadenopathy. Course Vital Signs Vital signs: Vital Signs Temperature 36.8 C 06/01/20 16:04 Pulse 76 06/01/20 16:04 Respiratory Rate 14 06/01/20 16:04 Blood Pressure 160/93 H 06/01/20 16:04 Pulse Oximetry 97 06/01/20 16:04 Temperature 36.8 C 06/01/20 16:04 Temperature Source Skin 06/01/20 16:04 Pulse 76 06/01/20 16:04 Respiratory Rate 14 06/01/20 16:04 Respiratory Effort Non-Labored 06/01/20 16:08 Blood Pressure 160/93 H 06/01/20 16:04 Blood Pressure Position Sitting 11/05/20 16:04 Pulse Oximetry 97 06/01/20 16:04 Oxygen Delivery Method Room Air 06/01/20 16:04 Oxygen Flow Rate 0 06/01/20 16:04 Pain Level 10 06/01/20 16:04
[2020-06-01] MEDS: Prochlorperazine 10 MG/2 ML VIAL IVP (16:23)
[2020-06-01] MEDS: diphenhydrAMINE 50 MG/ML VIAL 25 MG IVP (16:23)
[2020-06-01] MEDS: Normal Saline 1,000 ML 1000 ML IV (16:23)
[2020-06-01 16:35] LABS: Abs Immature Grans 0.02 10^3/uL (0.0-0.06); Absolute Basophil Count 0.08 10^3/uL (0.0-0.2); Absolute Lymphocyte Count 2.53 10^3/uL (1.2-3.4); Absolute Monocyte Count 0.64 10^3/uL (0.1-0.8); Absolute Neutrophil Count 5.28 10^3/uL (1.2-6.7); Basophils % 0.9; Eosinophils % 2.3; HCT 44.2 % (36.0-46.0); HGB 14.6 g/dL (11.2-15.7); Immature Grans % 0.2; Lymphocytes % 28.9; MCH 29.9 pg (27.0-33.0); MCV 90.6 fL (80-95); MPV 10.7 fL (8.0-11.0); Monocytes % 7.3; Neutrophils % 60.4; Nucleated RBC 0 %; Platelet Count 287 10^3/uL (130-400); RBC 4.88 10^6/uL (3.93-5.22); RDW 12.7 % (11.7-14.6); RDW-SD 42.2 fL; WBC 8.75 10^3/uL (4.4-10.8)
[2020-06-01 16:50] LABS: ALT 37 U/L (14-59); AST 18 U/L (15-37); Albumin 3.3 g/dL (3.4-5.0); Alkaline Phosphatase 131 U/L (46-116); Anion Gap 9.4 mmol/L (3-11); BUN 11 mg/dL (7-18); Bilirubin, Total 0.3 mg/dL (0.2-1.0); CO2 25.6 mmol/L (21.0-32.0); CREATININE 1.04 mg/dL (0.55-1.02); Calcium 8.5 mg/dL (8.5-10.1); Chloride 102 mmol/L (98-107); Estimated GFR 59.96 (mL/min/1.73m2); Glucose 87 mg/dL (74-106); Potassium 3.9 mmol/L (3.5-5.1); Sodium 137 mmol/L (136-145); Total Protein 7.3 g/dL (6.4-8.2)
[2020-06-01] MEDS: Ketorolac 30 MG/ML VIAL IVP (16:51)
[2020-06-01 17:52] VITALS: BP 126/79; PULSE 68; RESP 17; TEMP 36.5; O2SAT 98
== END 2020-06-01 17:58 | disposition home or self-care (01) ==
PROVIDERS: Emergency Provider Registered Nurse Emergency; PCP Physician Assistant Medical
DX: G43.809 Other migraine, not intractable, without status migrainosus (principal); M54.2 Cervicalgia
CPT/HCPCS: 36415; 80053; 81025; 96361; 96374; 96375; 99284; 85025; J0780; J1200; J1885

== ENCOUNTER 2020-10-18 12:23 | Outpatient (REF) | payer MEDICAID, SELFPAY ==
[2020-10-18 16:09] LABS: Abs Immature Grans 0.01 10^3/uL (0.0-0.06); Absolute Basophil Count 0.08 10^3/uL (0.0-0.2); Absolute Eosinophil Count 0.08 10^3/uL (0.0-0.7); Absolute Lymphocyte Count 1.96 10^3/uL (1.2-3.4); Absolute Neutrophil Count 3.59 10^3/uL (1.2-6.7); Basophils % 1.3; Eosinophils % 1.3; HCT 43.9 % (36.0-46.0); HGB 14.4 g/dL (11.2-15.7); Immature Grans % 0.2; MCH 29.9 pg (27.0-33.0); MCHC 32.8 % (32.0-36.0); MCV 91.3 fL (80-95); MPV 12.2 fL (8.0-11.0); Monocytes % 6.5; Neutrophils % 58.7; Nucleated RBC 0 %; Platelet Count 248 10^3/uL (130-400); RBC 4.81 10^6/uL (3.93-5.22); RDW 13.1 % (11.7-14.6); WBC 6.12 10^3/uL (4.4-10.8)
[2020-10-18 16:19] LABS: ALT 25 U/L (14-59); AST 13 U/L (15-37); Albumin 3.4 g/dL (3.4-5.0); Alkaline Phosphatase 118 U/L (46-116); Anion Gap 8.5 mmol/L (3-11); BUN 14 mg/dL (7-18); Bilirubin, Total 0.2 mg/dL (0.2-1.0); CO2 26.5 mmol/L (21.0-32.0); Calcium 8.8 mg/dL (8.5-10.1); Chloride 105 mmol/L (98-107); Glucose 83 mg/dL (74-106); Potassium 4.7 mmol/L (3.5-5.1); Sodium 140 mmol/L (136-145); TSH (W/Ref FT4) 1.68 uIU/mL (0.36-3.74); Total Protein 6.9 g/dL (6.4-8.2)
== END 2020-10-18 12:24 | disposition home or self-care (01) ==
LOC: NCHCN 12:23
PROVIDERS: PCP Physician Assistant Medical; Visit Provider Physician Assistant Medical
DX: R10.9 Unspecified abdominal pain (principal); R11.2 Nausea with vomiting, unspecified
CPT/HCPCS: 80053; 84443; 85025

== ENCOUNTER 2020-11-24 13:25 | Observation (INO) | payer MEDICAID, SELFPAY ==
[2020-11-24 13:33] VITALS: BP 128/84; PULSE 85; RESP 18; TEMP 36.5; O2SAT 96
--- NOTE | 2020-11-24 13:47 | W.ED.GENAD ---
Discharge Plan Disposition Patient Disposition: [facility] INPATIENT Condition: Stable Discharge Details Clinical Impression: Cholecystitis Admit Date/Time: 11/24/20 16:09 Admit Provider: Sienna Macias Attending Provider: Sienna Macias Primary Care Provider: German Campa ED Provider: Miranda Pham Medical Decision Making 85-year-old female presents to the ER with chief right-sided abdominal pain which radiates into her back. Worse over the last 2 days. Increased nausea in the last week. Lab work ordered including CBC, CMP, lipase, urinalysis. Zofran 4 mg IV, 4 mg morphine, 1 L normal saline ordered. Ultrasound abdomen to rule out cholecystitis versus kidney stone ordered. Patient reports that she last had a CT abdomen pelvis few weeks ago at [facility]. Upon record review is documented the patient has had a left 24 CTs in her lifetime. Will order ultrasound at this time to reduce radiation exposure. Labs are largely within normal limits no leukocytosis, lipase is 79 CMP is largely within normal limits. Urinalysis shows trace ketones. US ABDOMEN EXAM: US ABDOMEN CLINICAL HISTORY: RUQ abd pain, R/O Cholecystitis,versus Kidneystone TECHNIQUE: Ultrasound abdomen performed using standard protocol. COMPARISON: US US ABDOMEN from 12/22/2018 FINDINGS: ABDOMINAL AORTA AND IVC: Visualized portions normal caliber. PANCREAS: Normal where visualized. LIVER: The liver measures 18.3 cm in length. Hepatopedal flow in the Portal Vein. GALLBLADDER: There is a 1.2 cm non mobile gallstone. The gallbladder wall measures 5.5 mm. No pericholecystic fluid identified. BILIARY SYSTEM: Common bile duct measures < 7 mm. No intrahepatic biliary ductal dilation. RIVERA'S SIGN: Positive KIDNEYS: Kidneys are symmetric in size. No evidence of renal calculi. No evidence of hydronephrosis. No renal mass or cyst identified. SPLEEN: Not enlarged. ASCITES: None seen. IMPRESSION: Immobile gallstone, gallbladder wall thickening and positive sonographic Rivera sign suggesting acute cholecystitis. Results of this exam have been verbally communicated with provider. Surgery paged. [id number]: Spoke with Dr. Macias who is on-call for general surgery discussed patient case ultrasound results and labs with her she verbalizes understanding. She states that due to normal labs and no evidence for. [place]iz[place]ana cystitis fluid does appear to be more chronic in nature. She does recommend giving Toradol to see if that controls patient's pain. If pain is well controlled she does recommend follow-up as an outpatient next week in the office. 1608: Spoke again with Dr. Macias who states that due to scheduling issues in the office for next week she will plan to admit patient for pain control and possibly take to surgery tomorrow. Will discuss plan of care with patient. Dr. Macias to put in admission orders. Discussed plan of care for admission with patient who verbalizes understanding and is in agreement with the plan. Instructed patient to be n.p.o. after midnight. HPI General Mode of arrival: ambulatory. Date/Time Provider Initiated Documentation: 11/24/20 13:28. Limitations to Documentation: no limitations. Information obtained by: patient, RN notes reviewed and old records reviewed. HPI Narrative: 35-year-old female presents the ER chief complaint of right upper quadrant abdominal pain which radiates back into the back up to her right shoulder. She states that she has had this pain for approximately 2 days worsening today. She does not endorse vomiting 2 days ago. Increased nausea. Pain gets worse when she eats. She states that 2 days ago she also had a fever of 100.1. Denies any constipation or dysuria. She does report dark urine and diarrhea which began today. She has a past medical history of GERD, umbilical hernia with repair, right ovarian cyst, migraine headaches, anxiety. Surgical history includes laparoscopic hysterectomy, right oophorectomy. He states that she took leftover Vicodin yesterday nothing today for pain prior to arrival. She is a current everyday smoker, reports occasional alcohol and daily use of THC. Related Data Home Medications Medication Instructions Recorded Confirmed ropinirole 2 mg PO HS 06/08/15 11/24/20 diphenhydramine HCl 25 mg PO Q6H PRN #12 cap 12/15/16 11/24/20 venlafaxine 300 mg PO DAILY 12/17/16 11/24/20 acetaminophen [Tylenol] 650 mg PO PRN PRN 04/16/17 11/24/20 omeprazole 40 mg PO DAILY #30 cap 03/16/19 05/21/20 gabapentin 800 mg PO .QHS 05/21/20 11/24/20 magnesium oxide 400 mg PO HS 05/21/20 11/24/20 metoclopramide HCl 10 mg PO DIRECTED PRN 05/21/20 11/24/20 ondansetron HCl [Zofran] 4 mg PO Q8H PRN #10 tab 06/01/20 pantoprazole 40 mg PO HS 11/24/20 11/24/20 Previous Rx's Medication Instructions Recorded diphenhydramine HCl 25 mg PO Q6H PRN #12 cap 12/15/16 omeprazole 40 mg PO DAILY #30 cap 03/16/19 ondansetron HCl [Zofran] 4 mg PO Q8H PRN #10 tab 06/01/20 Allergies Allergy/AdvReac Type Severity Reaction Status Date / Time Penicillins Allergy Severe Swelling Unverified 11/24/20 13:38 in throat granda flavor Allergy Intermediate throat Unverified 11/24/20 13:38 bleeds,swelling kiwi Allergy Intermediate throat Unverified 11/24/20 13:38 swells latex Allergy Mild rash,swelli Unverified 11/24/20 13:38 ng naproxen AdvReac Intermediate Nausea Unverified 11/24/20 13:38 sumatriptan [From Imitrex] AdvReac Mild Headache Unverified 11/24/20 13:38 wool Allergy Mild Skin Rash Uncoded 11/24/20 13:38 General Stated Complaint: Abd Prob IVAN: 3 Review of Systems Narrative: Constitutional: Negative for weight loss, alert and oriented, well groomed, well-nourished body habitus, appears uncomfortable. HEENT: Denies trauma, headaches, blurry vision, nasal discharge, sore throat, trouble swallowing. Chest: Denies chest pain, palpitations, irregular rhythm, hypertension. Respiratory: Denies Shortness of breath, cough, hemoptysis. GI: Denies positive right upper quadrant abdominal pain radiating to constipation. Right back, associated with nausea vomiting low-grade fever 100.1. : Denies dysuria, rectal bleeding. Reports tenderness. Pain worse with eating. Neuro: Denies dizziness, blurry vision, weakness, syncope, headache or facial numbness. Hematologic: Denies easy bruising, intolerance to heat or cold, hair loss. [facility] Medical History Anxiety BMI 35.0-35.9,adult GERD (gastroesophageal reflux disease) Migraine Pelvic pain in female Restless leg syndrome Right ovarian cyst Umbilical hernia Surgical History Diagnostic Laproscopy 2002 Weeks Hosp. bilateral ovarian cystectomies 11/2009. Diagnostic laparoscopy for chronic RLQ pain after LAVH in 2009. EGD - MAC (12/16/16) History of umbilical hernia repair (~09/13/19) Hysterectomy, Laproscopic (~11/2009) LAVH, ovarian conservation for dysmenorrhea Oophrectomy, Right (06/09/15) Laparoscopic RSO with L salpingectomy for R sided pelvic pain. R corpus luteum cyst. no pathology. R wrist cyst removal 10/2002 Tooth extraction 07/2014 wisdom teeth extraction Social History Smoking/Tobacco Use Status: Current every day Tobacco Type: cigarettes Tobacco: How many years used: 13 Smoking risk assessment performed?: Yes Alcohol Intake: current Alcohol Intake frequency: holidays/special occasions only Alcohol type: beer, wine and hard liquor Drug use: Daily Substance use type: marijuana Current gender identity: female Do you feel safe at home: Yes Do you feel safe in your relationship?: Yes Exam Narrative Exam Narrative: Constitutional: Alert and oriented x3. Appears stated age. Well-nourished body habitus. Head: Normocephalic, no trauma. Eyes: Pupils PERRLA, Red reflex noted, EOM's intact. Eyelids symmetrical without lesions, discharge, or swelling. ENT: Bilateral TM's WNL, External ear normal to inspection, no mastoid TTP, swelling, or erythema, Nasal turbinates WNL, no nasal discharge. Normal dentition, Posterior pharynx WNL, no exudate. Chest: RRR, Normal S1, S2, distal pulses intact. Resp: Lungs clear to auscultation bilaterally, no wheezes, rales, or rhonchi. Abdomen: Soft, tender to palpation right upper quadrant, mid epigastric, right CVA tenderness with palpation. Musculoskeletal: Normal gait, 5/5 strength to all four extremities. Skin: No suspicious rashes or lesions. Capillary refill less than 2 sec. Neurologic: Cranial nerves II-XII intact. Alert and oriented x 3. DTR's intact. Hematologic/Lymphatic: No ecchymosis, no lymphadenopathy. Course Vital Signs Vital signs: Vital Signs Temperature 36.5 C 11/24/20 13:33 Pulse 85 11/24/20 13:33 Respiratory Rate 18 11/24/20 13:33 Blood Pressure 128/84 11/24/20 13:33 Pulse Oximetry 96 11/24/20 13:33 Temperature 36.5 C 11/24/20 13:33 Temperature Source Temporal Artery Scan 11/24/20 13:33 Pulse 85 11/24/20 13:33 Respiratory Rate 18 11/24/20 13:33 Blood Pressure 128/84 11/24/20 13:33 Blood Pressure Position Sitting 11/24/20 13:33 Pulse Oximetry 96 11/24/20 13:33 Oxygen Delivery Method Room Air 11/24/20 13:33 Oxygen Flow Rate 0 11/24/20 13:33 Pain Level 10 11/24/20 13:33
[2020-11-24 14:12] LABS: Bilirubin Negative (Negative); Blood Negative (Negative); Clarity Clear (Clear); Glucose Negative (Negative); Ketones Trace mg/dL (Negative); Leukocyte Esterase Negative (Negative); Nitrite Negative (Negative); Specific Gravity 1.025 (1.005-1.025); Urobilinogen 0.2 EU/dL (Up TO 0.2)
[2020-11-24] MEDS: Ondansetron 4 MG/2 ML VIAL IVP (14:13)
[2020-11-24 14:26] LABS: Abs Immature Grans 0.02 10^3/uL (0.0-0.06); Absolute Basophil Count 0.08 10^3/uL (0.0-0.2); Absolute Eosinophil Count 0.06 10^3/uL (0.0-0.7); Absolute Lymphocyte Count 2.72 10^3/uL (1.2-3.4); Absolute Monocyte Count 0.69 10^3/uL (0.1-0.8); Absolute Neutrophil Count 5.47 10^3/uL (1.2-6.7); Basophils % 0.9; Eosinophils % 0.7; HCT 42.9 % (36.0-46.0); HGB 14.3 g/dL (11.2-15.7); Immature Grans % 0.2; Lymphocytes % 30.1; MCH 30.8 pg (27.0-33.0); MCHC 33.3 % (32.0-36.0); MCV 92.3 fL (80-95); MPV 10.7 fL (8.0-11.0); Monocytes % 7.6; Neutrophils % 60.5; Nucleated RBC 0 %; Platelet Count 265 10^3/uL (130-400); RBC 4.65 10^6/uL (3.93-5.22); RDW 13.7 % (11.7-14.6); RDW-SD 46.5 fL; WBC 9.04 10^3/uL (4.4-10.8)
[2020-11-24 14:46] LABS: ALT 41 U/L (14-59); AST 16 U/L (15-37); Albumin 3.4 g/dL (3.4-5.0); Alkaline Phosphatase 130 U/L (46-116); Anion Gap 7.7 mmol/L (3-11); BUN 11 mg/dL (7-18); Bilirubin, Total 0.2 mg/dL (0.2-1.0); CO2 27.3 mmol/L (21.0-32.0); Calcium 8.5 mg/dL (8.5-10.1); Chloride 105 mmol/L (98-107); Glucose 81 mg/dL (74-106); Lipase 79 U/L (73-393); Magnesium 1.8 mg/dL (1.8-2.4); Potassium 4.1 mmol/L (3.5-5.1); Sodium 140 mmol/L (136-145); Total Protein 7.2 g/dL (6.4-8.2)
--- NOTE | 2020-11-24 16:19 | HPE_ITS ---
Date of service: 11/24/20 Time of Service: 16:19 Assessment and Plan Assessment and plan (1) Cholecystitis: Status: Acute Assessment and plan: 35 year old female with RUQ pain, normal labs and an US showing a stone as well as some Gallbladder wall thickening. Will admit the patient for Nausea control and pain control. Repeat labs in am COVID test Plan on Laparoscopic Cholecystectomy tomorrow morning at 10 am. OR staff informed of plan. Risks, benefits, complications were reviewed with the patient in the office. Complications include but are not limited to bleeding, infection, injury to stomach, small bowel and large bowel, injury to the pancreas, injury to the common bile duct necessitating drainage and referral to tertiary center for repair, bile leak, adverse reactions to the medications, complications of intubation including a sore throat or injury to the uvula, ND, stroke and even . Questions were entertained and answered to her satisfaction and she wished to proceed. No guarantees were given or implied. History of Present Illness Consults Consult date: 11/24/20 Requesting physician: Miranda Pham Narrative: Ms Bermeo is a pleasant 35 year old female who comes to the ED today complaining of RUQ pain that radiates to the back. This started 2 days ago and has gotten worse. She has a history of ER visits in the past for N/V, abdominal pain and headaches. Labs were reviewed and are normal. US was done and I was a ble to review it. It shows a stone in the neck of the Gallbladder as well as Gallbladder wall thickening but no pericholecystic fluid. Patient has received Morphine in the ED as well as Zofran. She continues to complain of pain. Patient will be admitted overnight for surgery in the morning. Review of Systems Constitutional Constitutional: Denies fatigue, Denies fever(s) and Denies headache(s) Eyes Eyes: Denies change in vision ENT Ears, Nose, Mouth, and Throat: Denies change in voice, Denies headache(s) and Denies hoarseness Cardiovascular Cardiovascular: Denies chest pain, Denies irregular heart rhythm, Denies palpitations, Denies dyspnea and Denies dyspnea on exertion Respiratory Respiratory: Denies cough, Denies dyspnea and Denies dyspnea on exertion Gastrointestinal Gastrointestinal: Reports as per HPI Genitourinary Genitourinary: Denies difficulty voiding and Denies dysuria Musculoskeletal Musculoskeletal: Reports system reviewed and no additional complaints, except as documented Integumentary/Breasts Skin/Breast: Reports system reviewed and no additional complaints, except as documented Neurologic Neurologic: Reports system reviewed and no additional complaints, except as documented and Denies headache(s) Psychiatric Psychiatric: Reports system reviewed and no additional complaints, except as documented Endocrine Endocrine: Reports system reviewed and no additional complaints, except as documented, Denies fatigue and Denies palpitations PFSH Medical History Anxiety BMI 35.0-35.9,adult GERD (gastroesophageal reflux disease) Migraine Pelvic pain in female Restless leg syndrome Right ovarian cyst Umbilical hernia Surgical History Diagnostic Laproscopy 2002 [facility] bilateral ovarian cystectomies 11/2009. Diagnostic laparoscopy for chronic RLQ pain after LAVH in 2009. EGD - MAC (12/16/16) History of umbilical hernia repair (~09/13/19) Hysterectomy, Laproscopic (~11/2009) LAVH, ovarian conservation for dysmenorrhea Oophrectomy, Right (06/09/15) Laparoscopic RSO with L salpingectomy for R sided pelvic pain. R corpus luteum cyst. no pathology. R wrist cyst removal 10/2002 Tooth extraction 07/2014 wisdom teeth extraction Social History Smoking/Tobacco Use Status: Current every day Tobacco Type: cigarettes Tobacco: How many years used: 13 Smoking risk assessment performed?: Yes Alcohol Intake: current Alcohol Intake frequency: holidays/special occasions only Alcohol type: beer, wine and hard liquor Drug use: Daily Substance use type: marijuana Current gender identity: female Do you feel safe at home: Yes Do you feel safe in your relationship?: Yes Meds Allergies and Home Medications Allergies Allergy/AdvReac Type Severity Reaction Status Date / Time Penicillins Allergy Severe Swelling Unverified 11/24/20 13:38 in throat granda flavor Allergy Intermediate throat Unverified 11/24/20 13:38 bleeds,swelling kiwi Allergy Intermediate throat Unverified 11/24/20 13:38 swells latex Allergy Mild rash,swelli Unverified 11/24/20 13:38 ng naproxen AdvReac Intermediate Nausea Unverified 11/24/20 13:38 sumatriptan [From Imitrex] AdvReac Mild Headache Unverified 11/24/20 13:38 wool Allergy Mild Skin Rash Uncoded 11/24/20 13:38 Home Medications Medication Instructions Recorded Confirmed Type ropinirole 2 mg PO HS 06/08/15 11/24/20 History diphenhydramine HCl 25 mg PO Q6H PRN #12 cap 12/15/16 11/24/20 Rx venlafaxine 300 mg PO DAILY 12/17/16 11/24/20 History acetaminophen [Tylenol] 650 mg PO PRN PRN 04/16/17 11/24/20 History omeprazole 40 mg PO DAILY #30 cap 03/16/19 05/21/20 Rx gabapentin 800 mg PO .QHS 05/21/20 11/24/20 History magnesium oxide 400 mg PO HS 05/21/20 11/24/20 History metoclopramide HCl 10 mg PO DIRECTED PRN 05/21/20 11/24/20 History ondansetron HCl [Zofran] 4 mg PO Q8H PRN #10 tab 06/01/20 Rx pantoprazole 40 mg PO HS 11/24/20 11/24/20 History Exam Const General: cooperative, comfortable and no acute distress Nutritional Appearance: obese Orientation: alert and oriented x3 HENMT Head: normocephalic and atraumatic Resp Effort & Inspection: normal respiratory effort Auscultation: clear to auscultation bilaterally Cardio Rate: regular rate Rhythm: regular rhythm Heart Sounds: no gallops, no murmurs and no rubs GI Inspection: obesity Palpation: soft, no hepatosplenomegaly and tender in the RUQ and Rivera's sign positive Auscultation: normal bowel sounds Results Labs Result diagrams: 11/25/20 06:25 11/25/20 06:25 Labs: Laboratory Results - last 24 hr 11/24/20 11/24/20 11/24/20 14:05 14:14 14:14 WBC 9.04 RBC 4.65 Hgb 14.3 Hct 42.9 MCV 92.3 MCH 30.8 MCHC 33.3 RDW 13.7 Plt Count 265 MPV 10.7 Immature Gran % 0.2 Neutrophils % 60.5 Lymphocytes % 30.1 Monocytes % 7.6 Eosinophils % 0.7 Basophils % 0.9 Nucleated RBC % 0 Absolute Neutrophils 5.47 Absolute Lymphocytes 2.72 Absolute Monocytes 0.69 Absolute Eosinophils 0.06 Absolute Basophils 0.08 Sodium 140 Potassium 4.1 Chloride 105 Carbon Dioxide 27.3 Anion Gap 7.7 BUN 11 Creatinine 1.0 Estimated GFR/1.73 m2 >= 60.00 Glucose 81 Calcium 8.5 Magnesium 1.8 Total Bilirubin 0.2 AST 16 ALT 41 Alkaline Phosphatase 130 H Total Protein 7.2 Albumin 3.4 Lipase 79 Urine Color Yellow Urine Clarity Clear Urine pH 6.0 Ur Specific Purling 1.025 Urine Protein Negative Urine Ketones Trace H Urine Blood Negative Urine Nitrite Negative Urine Bilirubin Negative Urine Urobilinogen 0.2 Ur Leukocyte Esterase Negative Urine Glucose Negative Last Vital Signs Temp 97.7 F 11/24/20 13:33 Pulse 85 11/24/20 13:33 Resp 18 11/24/20 13:33 BP 128/84 11/24/20 13:33 Pulse Ox 96 11/24/20 13:33
[2020-11-24 16:37] VITALS: BP 100/62; PULSE 76; RESP 18; TEMP 36.8; O2SAT 99
[2020-11-24 16:50] LABS: Source Nasal/Nares
[2020-11-24 16:57] VITALS: BP 124/86; PULSE 70; RESP 16; TEMP 36.7; O2SAT 97
[2020-11-24] MEDS: Lactated Ringers 1,000 ML 75 ML IV (17:26)
[2020-11-24] MEDS: MORPHine 4 MG/ML SYR IV ×2 (17:28→20:49)
[2020-11-24] MEDS: Pantoprazole 40 MG VIAL IVP (17:30)
[2020-11-24] MEDS: Normal Saline Flush 10 ML SYR IVP (17:30)
[2020-11-24] MEDS: Ketorolac 30 MG/ML VIAL IVP (17:32)
[2020-11-24 22:33] LABS: COVID-19 PCR Negative (Negative)
[2020-11-24] MEDS: rOPINIRole 1 MG TAB 2 MG PO (22:38)
[2020-11-24] MEDS: Venlafaxine 150 MG CAPCR 300 MG PO (22:38)
[2020-11-24] MEDS: Gabapentin 800 MG TAB PO (22:38)
[2020-11-24 23:11] VITALS: BP 118/70; PULSE 76; RESP 18; TEMP 36.7; O2SAT 98
[2020-11-25] VITALS (10 sets, daily range): BP systolic 125–144; BP diastolic 79–96; PULSE 62–83; RESP 12–19; TEMP 36.2–36.5; O2SAT 93–100; BMI 35.9
[2020-11-25] MEDS: Ketorolac 30 MG/ML VIAL IVP ×3 (00:01→17:56)
[2020-11-25] MEDS: Normal Saline Flush 10 ML SYR IVP ×3 (00:01→17:56)
[2020-11-25] MEDS: Lactated Ringers 1,000 ML 75 ML IV (05:12)
[2020-11-25 06:52] LABS: Abs Immature Grans 0.01 10^3/uL (0.0-0.06); Absolute Basophil Count 0.05 10^3/uL (0.0-0.2); Absolute Eosinophil Count 0.05 10^3/uL (0.0-0.7); Absolute Lymphocyte Count 2.14 10^3/uL (1.2-3.4); Absolute Monocyte Count 0.48 10^3/uL (0.1-0.8); Absolute Neutrophil Count 2.79 10^3/uL (1.2-6.7); Basophils % 0.9; Eosinophils % 0.9; HCT 42.2 % (36.0-46.0); HGB 13.6 g/dL (11.2-15.7); Immature Grans % 0.2; Lymphocytes % 38.8; MCH 30.2 pg (27.0-33.0); MCHC 32.2 % (32.0-36.0); MCV 93.8 fL (80-95); MPV 10.8 fL (8.0-11.0); Monocytes % 8.7; Neutrophils % 50.5; Nucleated RBC 0 %; Platelet Count 200 10^3/uL (130-400); RDW 13.7 % (11.7-14.6); RDW-SD 47.3 fL; WBC 5.52 10^3/uL (4.4-10.8)
[2020-11-25 07:17] LABS: ALT 35 U/L (14-59); AST 15 U/L (15-37); Albumin 2.9 g/dL (3.4-5.0); Alkaline Phosphatase 106 U/L (46-116); Anion Gap 6.3 mmol/L (3-11); BUN 13 mg/dL (7-18); Bilirubin, Total 0.2 mg/dL (0.2-1.0); CO2 27.7 mmol/L (21.0-32.0); Calcium 8.1 mg/dL (8.5-10.1); Chloride 108 mmol/L (98-107); Glucose 88 mg/dL (74-106); Potassium 4.3 mmol/L (3.5-5.1); Sodium 142 mmol/L (136-145); Total Protein 6.2 g/dL (6.4-8.2)
--- NOTE | 2020-11-25 07:39 | INITIAL_ITS ---
- If Service Date Differs Date of service: 11/25/20 Time of Service: 07:39 Care Management Initial Assess REASON FOR HOSPITALIZATION:: Cholecystitis PAST MEDICAL HISTORY/PAST SURGICAL HISTORY:: Anxiety. BMI 35.0-35.9,adult. GERD (gastroesophageal reflux disease). Migraine. Pelvic pain in female. Restless leg syndrome. Right ovarian cyst. Umbilical hernia. Diagnostic Laproscopy. 2002 [facility] bilateral ovarian cystectomies. 11/2009. Diagnostic laparoscopy for chronic RLQ pain after LAVH in 2009. EGD - MAC (12/16/16). History of umbilical hernia repair (~09/13/19). Hysterectomy, Laproscopic (~11/2009). LAVH, ovarian conservation for dysmenorrhea. Oophrectomy, Right (06/09/15). Laparoscopic RSO with L salpingectomy for R sided pelvic pain. R corpus luteum cyst. no pathology. R wrist cyst removal. 10/2002. Tooth extraction. 07/2014 wisdom teeth extraction PREVIOUS FUNCTIONAL STATUS/SOCIAL/FAMILY SUPPORTS:: Estrella resides in [place], [place] with her , Schuyler. She is employed at [employer] and inde[employer] at [place] in the community. CURRENT FUNCTIONAL STATUS:: Brought to OR for cholecystectomy this morning. ADVANCE DIRECTIVES:: None on file. Has patient been provided with info about the portal/API?: Yes Did the patient sign up for the portal?: Yes (Previously) CODE STATUS:: Full Code INSURANCE COVERAGE / FINANCIAL ISSUES:: [employer] CURRENT HOME/COMMUNITY SERVICES/EQUIPMENT:: None, currently. PRIMARY CARE PHYSICIAN:: German Campa POTENTIAL DISCHARGE NEEDS:: Follow up appointments. PATIENT/FAMILY EDUCATION NEEDS:: Review of discharge instructions, discuss Ask Me Three. ANTICIPATED BARRIERS TO DISCHARGE:: None identified. TRANSPORTATION:: Via private vehicle with her . PLAN:: Estrella will be brought for surgery today, and monitored closely post surgically. Anticipate she will return home with no additional services, follow up with her PCP and plan of care as prescribed and transport via private vehicle with her , Schuyler.
--- NOTE | 2020-11-25 09:20 | W.ANESPRE ---
General Info Date of Service Date Performed: 11/25/20 Height: 5 ft 7 in Weight: 104.2 kg Body Mass Index (BMI): 35.9 Surgical Procedure: Operation Date: 11/25/20 10:00 Proposed Procedures Side Surgeon p Cholecystectomy Laparoscopic Sienna Macias MD Meds Allergies and Home Medications Allergies Allergy/AdvReac Type Severity Reaction Status Date / Time Penicillins Allergy Severe Swelling Unverified 11/24/20 13:38 in throat granda flavor Allergy Intermediate throat Unverified 11/24/20 13:38 bleeds,swelling kiwi Allergy Intermediate throat Unverified 11/24/20 13:38 swells latex Allergy Mild rash,swelli Unverified 11/24/20 13:38 ng naproxen AdvReac Intermediate Nausea Unverified 11/24/20 13:38 sumatriptan [From Imitrex] AdvReac Mild Headache Unverified 11/24/20 13:38 wool Allergy Mild Skin Rash Uncoded 11/24/20 13:38 Home Medication Medication Instructions Recorded ropinirole 2 mg PO HS 06/08/15 diphenhydramine HCl 25 mg PO Q6H PRN #12 cap 12/15/16 venlafaxine 300 mg PO DAILY 12/17/16 acetaminophen [Tylenol] 650 mg PO PRN PRN 04/16/17 omeprazole 40 mg PO DAILY #30 cap 03/16/19 gabapentin 800 mg PO .QHS 05/21/20 magnesium oxide 400 mg PO HS 05/21/20 metoclopramide HCl 10 mg PO DIRECTED PRN 05/21/20 ondansetron HCl [Zofran] 4 mg PO Q8H PRN #10 tab 06/01/20 pantoprazole 40 mg PO HS 11/24/20 Current Visit Medications: Current Medications Generic Name Dose Route Start Last Admin Trade Name Freq PRN Reason Stop Dose Admin Al Hydrox/Mg Hydrox/Simethicone 30 ml 11/24/20 16:09 Mylanta Suspension 30 Ml Cup PO Q4H PRN PRN Albuterol Sulfate 2.5 mg 11/24/20 16:09 Albuterol 2.5 Mg/3 Ml Inh Soln Vial UPD Q4H PRN PRN Gabapentin 800 mg 11/24/20 22:00 11/24/20 22:38 Gabapentin 800 Mg Tab PO 800 mg HS GEORGE Administration Ringer's Solution 1,000 mls @ 75 mls/hr 11/24/20 16:15 11/25/20 05:12 IV 75 mls/hr INFUSION GEORGE Administration Acetaminophen 1,000 mg in 100 mls @ 400 mls/hr 11/24/20 16:09 Ofirmev IVPB Q8H PRN PRN Pain or Fever IV Miscellaneous Supplies 1 each 11/24/20 13:45 Iv Access IV DIRECTED GEORGE Ketorolac Tromethamine 30 mg 11/24/20 18:00 11/25/20 05:11 Ketorolac 30 Mg/Ml Vial IVP 11/29/20 17:59 30 mg Q6H GEORGE Administration Metoclopramide HCl 10 mg 11/24/20 16:17 Metoclopramide 10 Mg Tab PO DIRECTED PRN Morphine Sulfate 2 - 4 mg 11/24/20 16:30 11/24/20 20:49 Morphine 4 Mg/Ml Syr IV 4 mg Q3H PRN PRN Administration Ondansetron HCl 0 mg 11/24/20 16:09 Ondansetron 4 Mg/2 Ml Vial IVP Q4H PRN PRN Pantoprazole Sodium 40 mg 11/24/20 18:00 11/24/20 17:30 Pantoprazole 40 Mg Vial IVP 40 mg Q24H GEORGE Administration Ropinirole HCl 2 mg 11/24/20 22:00 11/24/20 22:38 Ropinirole 1 Mg Tab PO 2 mg HS GEORGE Administration Simethicone 80 mg 11/24/20 16:09 Simethicone 80 Mg Chew PO Q4H PRN PRN Sodium Chloride 0 ml 11/24/20 13:45 11/25/20 05:11 Normal Saline Flush 10 Ml Syr IVP 10 ml PRN PRN Administration Venlafaxine HCl 300 mg 11/24/20 22:00 11/24/20 22:38 Venlafaxine 150 Mg Capcr PO 300 mg HS GEORGE Administration PFSH Active Problems Active Problems: Problem Status Onset Code Cholecystitis K81.9 Umbilical hernia K42.9 Abdominal pain R10.9 Nausea & vomiting R11.2 Medical History Medical History Anxiety BMI 35.0-35.9,adult GERD (gastroesophageal reflux disease) Migraine Pelvic pain in female Restless leg syndrome Right ovarian cyst Umbilical hernia Surgical History Surgical History Diagnostic Laproscopy 2002 [facility] bilateral ovarian cystectomies 11/2009. Diagnostic laparoscopy for chronic RLQ pain after LAVH in 2009. EGD - MAC (12/16/16) History of umbilical hernia repair (~09/13/19) Hysterectomy, Laproscopic (~11/2009) LAVH, ovarian conservation for dysmenorrhea Oophrectomy, Right (06/09/15) Laparoscopic RSO with L salpingectomy for R sided pelvic pain. R corpus luteum cyst. no pathology. R wrist cyst removal 10/2002 Tooth extraction 07/2014 wisdom teeth extraction Tobacco Smoking/Tobacco Use Status: Current every day Tobacco Type: cigarettes Smoking cigarettes per day: 10 Tobacco: How many years used: 13 Alcohol Alcohol Intake: current Alcohol intake frequency: holidays/special occasions only Alcohol type: beer, wine and hard liquor Substance Use Substance use: Daily Substance use type: marijuana Vital Signs and Lab Results Vital Signs Most Recent Vital Signs in EMR: Most Recent Vital Signs Temp Pulse Resp BP Pulse Ox 36.2 C L 62 16 144/96 H 100 11/25/20 08:34 11/25/20 08:34 11/25/20 08:34 11/25/20 08:34 11/25/20 08:34 Point of Care Results Point of Care Results: POC- Test(urine) Negative 11/24/20 15:37 Lab Results Result Diagrams: 11/25/20 06:25 11/25/20 06:25 Blood Type / Crossmatch: Patient ABO/Rh O Positive 06/08/15 14:58 06/08/15 Antibody Screen Negative 06/08/15 14:58 06/08/15 Complete Blood Count: White Blood Count 5.52 10^3/uL (4.4-10.8) 11/25/20 06:25 11/25/20 Red Blood Count 4.50 10^6/uL (3.93-5.22) 11/25/20 06:25 11/25/20 Hemoglobin 13.6 g/dL (11.2-15.7) 11/25/20 06:25 11/25/20 Hematocrit 42.2 % (36.0-46.0) 11/25/20 06:11/25/20 Platelet Count 200 10^3/uL (130-400) 11/25/20 06:11/25/20 Lactate 0.7 mmol/L (0.6-1.4) 03/16/19 11:35 03/16/19 Complete Metabolic Panel: Sodium Level 142 mmol/L (136-145) 11/25/20 06:11/25/20 Potassium Level 4.3 mmol/L (3.5-5.1) 11/25/20 06:11/25/20 Chloride Level 108 mmol/L (98-107) H 11/25/20 06:11/25/20 Carbon Dioxide Level 27.7 mmol/L (21.0-32.0) 11/25/20 06:11/25/20 Blood Urea Nitrogen 13 mg/dL (7-18) 11/25/20 06:11/25/20 Creatinine 1.0 mg/dL (0.55-1.02) 11/25/20 06:11/25/20 Magnesium Level 1.8 mg/dL (1.8-2.4) 11/24/20 14:14 11/24/20 Calcium Level 8.1 mg/dL (8.5-10.1) L 11/25/20 06:11/25/20 Albumin 2.9 g/dL (3.4-5.0) L 11/25/20 06:11/25/20 Glucose Level 88 mg/dL (74-106) 11/25/20 06:11/25/20 C-Reactive Protein 0.56 mg/dL (0.0-0.3) H 04/24/19 05:00 04/24/19 Liver Function Panel: Alanine Aminotransferase (ALT/SGPT) 35 U/L (14-59) 11/25/20 06:11/25/20 Aspartate Amino Transf (AST/SGOT) 15 U/L (15-37) 11/25/20 06:11/25/20 Coagulation Panel: D-Dimer 309 ng/mlFEU (45-500) 04/16/14 19:25 04/16/14 Cardiac Panel: Troponin I < 0.05 ng/Ml (<0.06) 06/28/19 14:59 06/28/19 Arterial Blood Gas: No Data to Display Venous Blood Gas: No Data to Display Pancreas Panel: Amylase Level 40 U/L (25-115) 12/11/18 15:42 12/11/18 Lipase 79 U/L (73-393) 11/24/20 14:14 11/24/20 Thyroid Panel: Thyroid Stimulating Hormone (TSH) 1.68 uIU/mL (0.36-3.74) 10/18/20 11:57 10/18/20 Infectious Disease: Coronavirus (COVID-19)(PCR) Negative (Negative) 11/24/20 16:15 11/24/20 Coronavirus 2019 Source Nasal/nares 11/24/20 16:15 11/24/20 Hepatitis B Surface Antigen Negative (Negative) 07/15/14 11:10 07/15/14 Neisseria gonorrhoeae DNA Probe See comments (()) 03/21/14 16:30 03/21/14 Blood Cultures: No Data to Display Toxicology Panel: Ethyl Alcohol Level < 10.0 mg/dL 04/21/12 17:00 04/21/12 Urine Amphetamines Screen Negative (Negative) 01/23/18 14:15 01/23/18 Urine Benzodiazepines Screen Negative (Negative) 01/23/18 14:15 01/23/18 Urine Barbiturates Screen Negative (Negative) 01/23/18 14:15 01/23/18 Urine Cocaine Screen Negative (Negative) 01/23/18 14:15 01/23/18 Urine Methadone Screen Negative (Negative) 01/23/18 14:15 01/23/18 Urine Opiates Screen Negative (Negative) 01/23/18 14:15 01/23/18 Ur Tricyclic Antidepressants Screen Negative 01/23/18 14:15 01/23/18 Ur Tetrahydrocannabinol (THC) Scrn Positive (Negative) 01/23/18 14:15 01/23/18 Panel: Beta HCG, Quantitative 1 mIU/mL (1-3) 02/01/18 16:08 02/01/18 Anesthesia Assessment and Plan Anesthesia History Personal History: No History of Anesthesia Complications Family History: No Family History of Anesthesia Complications Exercise Tolerance Exercise Tolerance: Metabolic Equivalents>4 Pertinent Negatives Pertinent Negatives: No Symptoms of GERD (Controlled with meds), No Major Cardiovascular Symptoms or Complaints and No Major Pulmonary Symptoms or Complaints Cardiac & Pulmonary Exam Cardiac Exam: Normal S1/S2 Heart Sounds Pulmonary Exam: Clear Bilateral Breath Sounds Airway Exam Known Difficult Airway: No Mallampati Class: 2 Mouth Opening: Normal (> 3cm) Thyromental Distance: Greater than 3 cm Neck Range of Motion: Full ROM Neck Circumference: Normal Teeth Condition: Loose or Chipped Tooth Numberin. Chipped ASA Classification ASA Score: ASA 2 ASA Emergency: No NPO Status NPO Status: NPO Clears >2 hours, Solids >8 hours Status Status: Negative HCG Anesthesia Plan Anesthesia Technique: General Anesthesia Airway Planned: Endotracheal Tube Monitors Used: Standard Monitors
[2020-11-25] MEDS: Lactated Ringers 1,000 ML 30 ML IV ×2 (09:50→12:23)
[2020-11-25] MEDS: ceFAZolin 3,000 MG in Normal Saline 100 ML 200 MG IVPB (09:50)
[2020-11-25] MEDS: Bupivacaine LIPOSOME/PF 133 MG/10 ML VIAL IJ (10:08)
[2020-11-25] MEDS: Bupivacaine 0.25% Pres-Free 10 ML VIAL (10:08)
--- NOTE | 2020-11-25 10:47 | GB_PTH ---
PATIENT: Estrella Bermeo LOC: [place] Angel#:[id number] AGE/SX: 35/F ROOM: RE11/24/[address]: Sienna Macias MD : 1985 BED: A DIS: 11/25/2020 SPEC #: [id number] RECD: 11/27/20 12:55 STATUS: MARCIA REQ #: [id number] DEIRDRE: 11/25/20 10:[address]: Sienna Macias DEPT: Surgical Specimen RECD BY: Marylin Casas ENTERED: 11/27/20 12:55 SP TYPE: GB OTHR DR: German Campa Tissues: 1 - GALLBLADDER Procedures: GROSS AND MICRO LEVEL 3 Comments: [id number]
[2020-11-25] MEDS: Cellulose,Oxidized 4X8 1 PACKET MC (11:12)
--- NOTE | 2020-11-25 11:52 | ROE_ITS ---
Date of service: 11/25/20 Time of Service: 11:52 Operative Note Operative Note DATE OF PROCEDURE: 11/25/20 PRE-OP DIAGNOSIS: Acute Cholecystitis POST-OP DIAGNOSIS: same (and recurrent ventral hernia) PROCEDURE: laparoscopic Cholecystectomy Ventral hernia repair SURGEON: Sienna Macias ASSISTANT PRINTER FLOOR COVERING: Janie Carroll ANESTHESIA TYPE: Local By Surgeon and General LMA/ETT (darcy Cota, ANDIE/ ASA 2) Refer to Anesthesia Record ESTIMATED BLOOD LOSS: 50 PATHOLOGY: other (Gallbladder) COMPLICATIONS: None Patient was transported to: PACU Patient's condition: stable Indications: Mrs. Bermeo is a pleasant 35-year-old female admitted last night with right upper quadrant pain. Her ultrasound showed a 1.7 cm stone stuck in the neck of the gallbladder as well as some gallbladder wall thickening. The patient was admitted overnight for surgery this morning. Risks benefits and complications of laparoscopic cholecystectomy were reviewed with her and she wished to proceed. On examination she was also noted to have a recurrence of a supra umbilical hernia. We discussed repair of this umbilical hernia at the time of her laparoscopic cholecystectomy. Risks, benefits, complications were reviewed with the patient in the office. Complications include but are not limited to bleeding, infection, injury to stomach, small bowel and large bowel, injury to the pancreas, injury to the common bile duct necessitating drainage and referral to tertiary center for repair, bile leak, adverse reactions to the medications, complications of intubation including a sore throat or injury to the uvula, CO, stroke and even . Questions were entertained and answered to her satisfaction and she wished to proceed. No guarantees were given or implied. Findings: Thickened gallbladder wall with 1 stone. Small 5 mm recurrence of her supraumbilical hernia with preperitoneal fat stuck within it. Procedure Description: After informed consent was obtained the patient was brought to the operating room, placed in a supine position and monitors were applied. SCDs were applied to her lower extremities and she was placed under general anesthesia and intubated without difficulty. Once intubated a Martin catheter was placed in a standard sterile fashion. Her abdomen was then prepped and draped in a sterile fashion using ChloraPrep. At this point a timeout was done and the patient's name, date of , procedure type, allergies to medicat ions, metal in her body, antibiotic and DVT prophylaxis were reviewed. Fire risk was assessed. At this point a 50/50 mix of Exparel and 0.25% Bupivocaine was injected just above the umbilicus into the dermis and subcutaneous tissue. A 2.5 cm incision was made with an 15 blade along her old scar. Dissection was done bluntly down to the incarcerated fat in the recurrent supra-umbilical hernia. The fat was amputated at the level of the fascia. The hernia defect was measured at 5 mm. A 5 mm port was then placed under dircet visualization into the abdomen. The abdomen was insuflated and then 3 more ports were placed. A 12 mm port was placed in the subxiphoid area and two 5 mm ports were placed in the right upper quadrant. The liver was inspected and looked normal. The patient's bed was then turned to the left and her head was brought up. The gallbladder was grasped at the body and pushed towards the right shoulder, this allowed me to visualize the neck of the gallbladder. The neck was grasped and pulled towards the right flank and down allowing me to visualize the lymph node. Using a [place] dissector with cautery the lymph node was gently dissected away from the tissues and the fatty tissue was also dissected away. The cystic duct was identified it was normal in size. The duct was dissected 360 degrees using the [place] dissector in order for me to visualize its entrance into the gallbladder. Liver was noted behind it. There were no other structures right behind. Critical view was achieved. 3 clips were placed one proximal and 2 distal and the cystic duct was cut. The cystic artery was then identified and dissected 360 degrees. It was located just medial to the cystic duct. It was visualized going into the gallbladder. Once dissected 3 more clips were placed one proximal and 2 distal and the artery was cut. Using the hook dissector the gallbladder was then dissected away from the liver bed and placed into an Endo Catch bag and pulled through the 12 mm port site. The 12 mm port was placed back into the abdomen under direct visualization. The liver bed was inspected and bleeding was noted. The area was cauterized. A sheet of surgicel was ap plied and covered with a 4x4 and pressure was held for 1 minute. The surgicell was removed as well as the 4x4 and taken out of the abdomen. A small area of bleeding was idetified and cauterized. A new sheet of surgicell was applied to the liver bed and a 4x4 was placed over that and again pressure was held for 2 minutes. While pressure was beeing helg cloty were suctioned out of the abdomen. The abdomen was irrigated with 2.5 L of sterile saline until the effluent was clear. The 4x4 was removed from the abdominal cavity as well as the sheet of surgicel. Flovent was then applied to the liver bed. No more bleeding was noted. The 12 mm facial defect was closed with 0 vicryl and the 12 mm port was removed. No bleeding was noted from the fascia. Next the 2 right upper quadrant ports were removed under direct visualization and no bleeding was noted from the fascia. The abdomen was deflated completely and lastly the umbilical port was removed. The 5 mm ventral defect was closed with a figure of eight stitch with 0 vicryl. The subcutaneous tissue was re-approximated with 3-0 vicryl interrupted stitches. The skin was cleaned. The and the dermis of all 4 incisions were closed with 4-0 Vicryl running subcuticular stitch. The skin was dried and skin affix was applied over the closed incisions. Needle and sponge counts were correct at the end of the case. The Martin catheter was removed. At this point the patient was woken up, extubated and taken back to recovery in stable condition. There were no immediate complications.
--- NOTE | 2020-11-25 12:08 | W.ANESPOSTOP ---
Postoperative Evaluation Date, Time and Location Date Performed: 11/25/20 Time Performed: 12:08 Patient Location: PACU Vital Signs Most Recent Imported Vital Signs: Most Recent Vital Signs Temp Pulse Resp BP Pulse Ox 36.3 C L 70 17 133/79 93 11/25/20 12:03 11/25/20 12:03 11/25/20 12:03 11/25/20 12:03 11/25/20 12:03 Pain Score Most Recent Pain Score: Most Recent Pain Score Pain Level 8 11/25/20 08:34 Assessment Mental Status: Awake (Alert & Oriented to Patient Baseline) Airway and Respiratory Function: Patent airway with normal (patient baseline) respiratory exam Cardiovascular Function: Hemodynamically Stable Hydration Status: Adequately Hydrated Nausea & Vomiting: No Nausea or Vomiting Pain: Pain is Moderate or Severe Postoperative Pain Management: Pain being addressed with medication and Ongoing pain, patient will be managed as an inpatient Peripheral Nerve Block: Patient did not receive a nerve block Postoperative Comments:: Alert and talkative, will continue to treat pain then transfer to Med/Surg for continued pain management.
[2020-11-25] MEDS: fentaNYL 100 MCG/2 ML VIAL IVP ×2 (12:14→12:30)
--- NOTE | 2020-11-25 13:07 | DSE_ITS ---
Date of service: 11/25/20 Time of Service: 17:53 DS: Diagnosis Discharge Diagnosis (1) Cholecystitis: Status: Acute Discharge Plan Disposition Patient Disposition: HOME Condition: Stable Discharge Details Reason For Visit: CHOLECYSTITIS Admit Date/Time: 11/24/20 16:09 Admit Provider: Sienna Macias Attending Provider: Sienna Macias Primary Care Provider: [facility] Hospital Course Hospital Course: Mrs. Bermeo is a pleasant 35 year old admitted on 11/24 with cholecystitis. She underwent Laparoscopic Cholecystectomy on 11/25/2020. She did well after surgery. Pain was controlled with Oxycodon 5 mg and tylenol. She was tolerating a diet. Home Meds and New Rx's Prescriptions: New oxycodone 5 mg Tablet 5 mg PO Q6H MDD 4 tabs PRN (Reason: pain) Qty: 14 RF: 0 Continued ropinirole 1 MG tablet 2 mg PO HS RF: 0 magnesium oxide 400 mg (241.3 mg magnesium) tablet 400 mg PO HS RF: 0 metoclopramide HCl 10 mg tablet 10 mg PO DIRECTED PRNRF: 0 gabapentin 300 MG capsule 800 mg PO .QHS RF: 0 ondansetron HCl [Zofran] 4 mg tablet 4 mg PO Q8H PRN (Reason: nausea and vomiting) Qty: 10 RF: 0 diphenhydramine HCl 25 MG capsule 25 mg PO Q6H PRN (Reason: Vomiting) Qty: 12 RF: 0 venlafaxine 150 MG capsule,extended release 24hr 300 mg PO DAILY RF: 0 acetaminophen [Tylenol] 325 MG tablet 650 mg PO PRN PRNRF: 0 pantoprazole 40 mg tablet,delayed release (DR/EC) 40 mg PO HS RF: 0 Discontinued omeprazole 20 MG capsule,delayed release(DR/EC) 40 mg PO DAILY Qty: 30 RF: 0 Discharge Instructions Instructions: Low Fat Diet (DC), Laparoscopic Cholecystectomy (DC) Additional Instructions: Activity at Home after surgery: 1. Make sure you walk outside at least 4 times per day 2. You should be able to climb a flight of stairs 3. No driving while in pain or taking pain medications 4. No strenuous activity or heavy lifting for 2 weeks (laparoscopic surgery) Diet, Nutrition, & wound healin. Avoid alcohol until after you are recovered from your surgery 2. Make sure to eat plenty of lean protein (meat, fish, eggs, cottage cheese, beans) 3. Eat a variety of fruits and vegetables. Eat plenty of high fiber foods to avoid constipation. 4. Drink plenty of liquids to stay hydrated and avoid constipation Pain Medications: 1. Tylenol 650mg every 6 hours as needed 2. If a narcotic has been prescribed take as directed only for breakthrough pain For Constipation: 1. Take Milk of Magnesia or MiraLax as needed for constipation Other: 1. You may shower daily. Do not scrub the incisions 2. Do not soak the incisions for 1 week 3. You may alternate ice and heat as needed for pain and swelling Wound Care: 1. Keep the incisions clean and dry Please call our office if you develop: 1. Fevers >101.5 2. Nausea or Vomiting 3. Worsening pain 4. Redness and thick discharge from the wounds If after hours please call the Hospital at and ask to speak to the on-call surgeon Referrals: Sienna Macias MD [ [facility] STAFF PHYSICIAN] - 12/01/20 8:45 am Activity:: No lifting >20 lb Equipment/Supplies:: No Equipment Needed Diet:: As Tolerated Discharge Orders Discharge Orders: Discharge Order (Routine); Ordered 11/25/20 Ordered By: Sienna Macias DS: Summary Time Spent with Patient providing and/or coordinating discharge services: Less than 30 minutes Status at Discharge Functional status at discharge: independent ambulation Overall status at discharge: patient is back to baseline Mental Status: mental status grossly normal Speech and Movement: speech and movement normal Mood: congruent mood Affect: normal affect Exam Const General: cooperative and comfortable Orientation: alert and oriented x3 HENMT Head: normocephalic and atraumatic Resp Effort & Inspection: normal respiratory effort Auscultation: clear to auscultation bilaterally Cardio Rate: regular rate Rhythm: regular rhythm Heart Sounds: no gallops, no murmurs and no rubs GI Palpation: soft, no hepatosplenomegaly and tender (appropriatly tender around the incisions) Auscultation: normal bowel sounds Psych Mental Status: mental status grossly normal Speech and Movement: speech and movement normal Mood: congruent mood Affect: normal affect DS: Data Vitals/I&O Vitals and I&O: Vital Signs Temperature 97.3 F L 11/25/20 12:59 Temperature Source Temporal Artery Scan 11/25/20 12:59 Pulse 76 11/25/20 12:59 Pulse Rhythm Regular 11/25/20 09:15 Respiratory Rate 16 11/25/20 12:59 Respiratory Effort Non-Labored 11/25/20 09:15 Respiratory Depth Normal 11/25/20 09:15 Respiratory Pattern Normal 11/25/20 09:15 Blood Pressure 128/88 11/25/20 12:59 Blood Pressure Position Sitting 11/24/20 13:33 Pulse Oximetry 93 11/25/20 12:59 Respiratory End-tidal CO2 39 11/25/20 12:43 Oxygen Delivery Method Room Air 11/25/20 12:59 Oxygen Flow Rate 0 11/25/20 12:59 Pain Level 6 11/25/20 12:59 Intake & Output 11/24/20 11/25/20 11/25/20 23:59 11:59 23:59 Intake Total 250 / 250 1492.5 / 2142.5 650 / 2142.5 Output Total 300 / 300 550 / 550 Balance -50 / -50 942.5 / 1592.5 650 / 1592.5 Weight 229 lb 11.547 oz 229 lb 11.547 oz Intake: IV 10 / 10 1482.5 / 2082.5 600 / 2082.5 Oral 240 / 240 10 / 60 50 / 60 Output: Urine 300 / 300 500 / 500 Estimated Blood Loss 50 / 50 Other: Urine Color Yellow Yellow Urine Appearance Clear Clear Urine Odor Strong Emesis Description None None Voiding Methods Toilet Toilet Data Completed and Pending Labs on day of discharge: Labs from last 24 hours 11/25/20 11/25/20 11/24/20 06:25 06:25 16:15 WBC 5.52 D RBC 4.50 Hgb 13.6 Hct 42.2 MCV 93.8 MCH 30.2 MCHC 32.2 RDW 13.7 Plt Count 200 MPV 10.8 Immature Gran % 0.2 Neutrophils % 50.5 Lymphocytes % 38.8 Monocytes % 8.7 Eosinophils % 0.9 Basophils % 0.9 Nucleated RBC % 0 Absolute Neutrophils 2.79 Absolute Lymphocytes 2.14 Absolute Monocytes 0.48 Absolute Eosinophils 0.05 Absolute Basophils 0.05 Sodium 142 Potassium 4.3 Chloride 108 H Carbon Dioxide 27.7 Anion Gap 6.3 BUN 13 Creatinine 1.0 Estimated GFR/1.73 m2 >= 60.00 Glucose 88 Calcium 8.1 L Magnesium Total Bilirubin 0.2 AST 15 ALT 35 Alkaline Phosphatase 106 Total Protein 6.2 L Albumin 2.9 L Lipase Urine Color Urine Clarity Urine pH Ur Specific [place] Urine Protein Urine Ketones Urine Blood Urine Nitrite Urine Bilirubin Urine Urobilinogen Ur Leukocyte Esterase Urine Glucose COVID-19 Source Nasal/nares SARS-CoV-2 (PCR) Negative 11/24/20 11/24/20 11/24/20 14:14 14:14 14:05 WBC 9.04 RBC 4.65 Hgb 14.3 Hct 42.9 MCV 92.3 MCH 30.8 MCHC 33.3 RDW 13.7 Plt Count 265 MPV 10.7 Immature Gran % 0.2 Neutrophils % 60.5 Lymphocytes % 30.1 Monocytes % 7.6 Eosinophils % 0.7 Basophils % 0.9 Nucleated RBC % 0 Absolute Neutrophils 5.47 Absolute Lymphocytes 2.72 Absolute Monocytes 0.69 Absolute Eosinophils 0.06 Absolute Basophils 0.08 Sodium 140 Potassium 4.1 Chloride 105 Carbon Dioxide 27.3 Anion Gap 7.7 BUN 11 Creatinine 1.0 Estimated GFR/1.73 m2 >= 60.00 Glucose 81 Calcium 8.5 Magnesium 1.8 Total Bilirubin 0.2 AST 16 ALT 41 Alkaline Phosphatase 130 H Total Protein 7.2 Albumin 3.4 Lipase 79 Urine Color Yellow Urine Clarity Clear Urine pH 6.0 Ur Specific [place] 1.025 Urine Protein Negative Urine Ketones Trace H Urine Blood Negative Urine Nitrite Negative Urine Bilirubin Negative Urine Urobilinogen 0.2 Ur Leukocyte Esterase Negative Urine Glucose Negative COVID-19 Source SARS-CoV-2 (PCR) [facility] Medical History Anxiety BMI 35.0-35.9,adult GERD (gastroesophageal reflux disease) Migraine Pelvic pain in female Restless leg syndrome Right ovarian cyst Umbilical hernia Surgical History Diagnostic Laproscopy 2003 [facility] bilateral ovarian cystectomies 11/2009. Diagnostic laparoscopy for chronic RLQ pain after LAVH in 2009. EGD - MAC (12/16/16) History of umbilical hernia repair (~09/13/19) Hysterectomy, Laproscopic (~11/2009) LAVH, ovarian conservation for dysmenorrhea Oophrectomy, Right (06/09/15) Laparoscopic RSO with L salpingectomy for R sided pelvic pain. R corpus luteum cyst. no pathology. R wrist cyst removal 10/2002 Tooth extraction 07/2014 wisdom teeth extraction Social History Smoking/Tobacco Use Status: Current every day Tobacco Type: cigarettes Tobacco: How many years used: 13 Smoking risk assessment performed?: Yes Alcohol Intake: current Alcohol Intake frequency: holidays/special occasions only Alcohol type: beer, wine and hard liquor Drug use: Daily Substance use type: marijuana Current gender identity: female Do you feel safe at home: Yes Do you feel safe in your relationship?: Yes
[2020-11-25] MEDS: oxyCODONE 5 MG TAB PO ×2 (14:05→18:05)
[2020-11-25] MEDS: Acetaminophen 325 MG TAB 650 MG PO (15:48)
== END 2020-11-25 18:55 | disposition home or self-care (01) ==
LOC: ER 16:41 → MS 16:51
PROVIDERS: Admitting Provider Surgery; Emergency Provider Registered Nurse Emergency; PCP Physician Assistant Medical; Visit Provider Surgery
PROC: 0FT44ZZ Resection of Gallbladder, Percutaneous Endoscopic Approach (ICD-10-PCS; CPT 47562; principal; 2020-11-25 10:00)
PROC: (CPT 47562; 2020-11-25 10:00)
DX: K80.12 Calculus of gallbladder with acute and chronic cholecystitis without obstruction (principal); K42.0 Umbilical hernia with obstruction, without gangrene; F17.210 Nicotine dependence, cigarettes, uncomplicated; F41.9 Anxiety disorder, unspecified; E66.9 Obesity, unspecified; Z68.36 Body mass index [BMI] 36.0-36.9, adult; K21.9 Gastro-esophageal reflux disease without esophagitis; G43.909 Migraine, unspecified, not intractable, without status migrainosus; G25.81 Restless legs syndrome
CPT/HCPCS: 47562; 49587; 36415; 80053; 81025; 83690; 87635; 96374; 96375; 99285; 76700; 81003; 83735; 85025; 88304; 99284; G0378; J0131; J0690; J1100; J1885; J2001; J2270; J2405; J2704; J3010

== ENCOUNTER 2021-03-03 10:13 | Emergency (ER) | payer MEDICAID, SELFPAY ==
[2021-03-03] VITALS (15 sets, daily range): BP systolic 89–136; BP diastolic 64–99; PULSE 66–89; RESP 16–20; TEMP 36.2–36.7; O2SAT 92–98
--- NOTE | 2021-03-03 10:16 | W.ED.GENAD ---
Discharge Plan Disposition Patient Disposition: HOME Condition: Improving Discharge Details Clinical Impression: Colitis, Nausea and vomiting Primary Care Provider: [facility] ED Provider: Mallorie Lilly Home Meds and New Rx's Prescriptions: New ondansetron 4 mg tablet,disintegrating 4 mg PO TID PRN (Reason: nausea and vomiting) Qty: 6 RF: 0 tramadol 50 mg tablet 50 mg PO TID PRN (Reason: pain) Qty: 5 RF: 0 Continued ropinirole 1 MG tablet 2 mg PO HS RF: 0 magnesium oxide 400 mg (241.3 mg magnesium) tablet 400 mg PO HS RF: 0 metoclopramide HCl 10 mg tablet 10 mg PO DIRECTED PRNRF: 0 gabapentin 300 MG capsule 800 mg PO .QHS RF: 0 ondansetron HCl [Zofran] 4 mg tablet 4 mg PO Q8H PRN (Reason: nausea and vomiting) Qty: 10 RF: 0 venlafaxine 150 MG capsule,extended release 24hr 300 mg PO DAILY RF: 0 acetaminophen [Tylenol] 325 MG tablet 650 mg PO PRN PRNRF: 0 pantoprazole 40 mg tablet,delayed release (DR/EC) 40 mg PO HS RF: 0 oxycodone 5 mg Tablet 5 mg PO Q6H MDD 4 tabs PRN (Reason: pain) Qty: 14 RF: 0 prochlorperazine maleate 10 mg tablet 10 mg PO PRN PRNRF: 0 polyethylene glycol 3350 [Miralax] 17 gram/dose powder 17 g PO PRN PRNRF: 0 Discharge Instructions Instructions: Acute Nausea and Vomiting (ED), Colitis (ED) Additional Instructions: Drink plenty of fluids and get plenty of rest. Your prescriptions have been sent electronically to your pharmacy. Call the pharmacy to make sure your prescriptions are ready before pickup. Take the prescriptions as directed. Take the Zofran as needed and directed for nausea and vomiting. Take the tramadol as needed and directed for pain not relieved with Tylenol. Call your primary care doctor on Friday to schedule a follow-up appointment for reevaluation this week and for referral to surgery if your symptoms do not improve or worsen. Return immediately to the emergency department if you develop any worsening or new concerning symptoms. Referrals: Sienna Macias MD [ [facility] STAFF PHYSICIAN] - Discharge Data Discharge Date/Time-TO BE ENTERED AT DEPARTURE: 03/03/21 15:47 Discharge Physician: Mallorie Lilly Medical Decision Making 1035 --- 36-year-old female with a history of morbid obesity, anxiety, depression, cholecystectomy, hernia repair and hysterectomy presents for left-sided lower abdominal pain since yesterday and vomiting today. Patient is vomiting upon my evaluation. She appears uncomfortable but not. Her abdomen is obese but tender in the left lower quadrant. Differential diagnosis includes small bowel obstruction, diverticulitis, kidney stone, pyelonephritis, appendicitis, gastroenteritis, colitis. Will place an IV, bolus of fluids, screening labs, urinalysis, CT abdomen pelvis and give morphine Zofran and reassess. 1115 -- Labs and imaging reviewed. White blood cell count 13. Normal lipase. Urinalysis notes ketones but no evidence of infection. CT abdomen and pelvis notes findings with colitis but no bowel obstruction. 1230 -- Patient reassessed and her nausea is improved but still with pain. She was given a dose of Toradol without relief. We will give a dose of Dilaudid and reassess. 1330 -- Patient reassessed and pain slightly improved but still 9/10. CT imaging reviewed with in-house radiologist who does not see any other additional findings other than noted by vrad. Will give patient another dose of Dilaudid IV and Valium p.o. and reassess. 1445 -- patient reassessed and she feels much better and feels good to go home. She was sent home with nausea and pain medication and prescriptions sent electronically to her pharmacy. Advised to follow up with the primary care doctor for re-evaluation. Usual and customary return precautions given prior to discharge. Medical Records Medical records reviewed: Yes I reviewed the patient's medical records. Imaging Data Radiologic Study: Radiologist's impression: CT Abdomen And Pelvis With Contrast Exam date and time: 03/03/2021 10:38 AM Age: 36 years old Clinical indication: Other: Llq abd pain, R/O diverticulitis, appendicitis, sbo TECHNIQUE: Imaging protocol: Computed tomography of the abdomen and pelvis with contrast. Radiation optimization: All CT scans at this facility use at least one of these dose optimization techniques: automated exposure control; mA and/or kV adjustment per patient size (includes targeted exams where dose is matched to clinical indication); or iterative reconstruction. Contrast material: OMNIPAQUE 350; Contrast volume: 100 ml; Contrast route: INTRAVENOUS (IV); COMPARISON: CT ABDOMEN PELVIS W 08/29/2019 2:56 PM FINDINGS: Liver: 3.2 cm simple cyst in the right lobe of the liver. . No follow-up imaging recommended . Gallbladder and bile ducts: Cholecystectomy Pancreas: Normal. No ductal dilation. Spleen: Normal. No splenomegaly. Adrenal glands: Normal. No mass. Kidneys and ureters: Normal. No hydronephrosis. Stomach and bowel: Low-attenuation bowel wall thickening is seen throughout the colon consistent with colitis. Differential diagnosis includes infectious and inflammatory etiologies.. A few loops of dilated small bowel with air-fluid levels. More distally the small bowel tapers. This may represent ileus. No ainsley obstruction. Appendix: No evidence of appendicitis. Intraperitoneal space: Unremarkable. No free air. No significant fluid collection. Vasculature: Unremarkable. No abdominal aortic aneurysm. Lymph nodes: Unremarkable. No enlarged lymph nodes. Urinary bladder: Unremarkable as visualized. Reproductive: Surgical resection of the uterus Bones/joints: Unremarkable. No acute fracture. Soft tissues: Unremarkable. IMPRESSION: 1. Low-attenuation bowel wall thickening is seen throughout the colon consistent with colitis. Differential diagnosis includes infectious and inflammatory etiologies.. 2. A few loops of dilated small bowel with air-fluid levels. More distally the small bowel tapers. This may represent ileus. No ainsley obstruction. Lab Data Lab results reviewed: Yes I reviewed the patient's lab results. Labs: Laboratory Tests Range/Units 03/03/21 03/03/21 03/03/21 10:49 10:49 12:30 WBC (4.4-10.8) 10^3/uL 13.94 H RBC (3.93-5.22) 10^6/uL 5.29 H Hgb (11.2-15.7) g/dL 15.9 H Hct (36.0-46.0) % 47.9 H MCV (80-95) fL 90.5 MCH (27.0-33.0) pg 30.1 MCHC (32.0-36.0) % 33.2 RDW (11.7-14.6) % 13.2 Plt Count (130-400) 10^3/uL 334 MPV (8.0-11.0) fL 10.6 Immature Gran % 0.3 Neutrophils % 73.5 Lymphocytes % 17.6 Monocytes % 6.7 Eosinophils % 1.1 Basophils % 0.8 Nucleated RBC % % 0 Absolute Neutrophils (1.2-6.7) 10^3/uL 10.25 H Absolute Lymphocytes (1.2-3.4) 10^3/uL 2.45 Absolute Monocytes (0.1-0.8) 10^3/uL 0.93 H Absolute Eosinophils (0.0-0.7) 10^3/uL 0.15 Absolute Basophils (0.0-0.2) 10^3/uL 0.11 Sodium (136-145) mmol/L 140 Potassium (3.5-5.1) mmol/L 3.7 Chloride (98-107) mmol/L 104 Carbon Dioxide (21.0-32.0) mmol/L 24.3 Anion Gap (3-11) mmol/L 11.7 H BUN (7-18) mg/dL 10 Creatinine (0.55-1.02) mg/dL 1.1 H Estimated GFR/1.73 m2 (mL/min/1.73m2) 55.89 Glucose (74-106) mg/dL 118 H Calcium (8.5-10.1) mg/dL 9.3 Total Bilirubin (0.2-1.0) mg/dL 0.4 AST (15-37) U/L 34 ALT (14-59) U/L 61 H Alkaline Phosphatase (46-116) U/L 172 H Total Protein (6.4-8.2) g/dL 8.4 H Albumin (3.4-5.0) g/dL 3.7 Lipase (73-393) U/L 35 Urine Color (Yellow) Yellow Urine Clarity (Clear) Clear Urine pH (5-8) 7.0 Ur Specific [place] (1.005-1.025) 1.015 Urine Protein (Negative) mg/dL Negative Urine Ketones (Negative) mg/dL 15 H Urine Blood (Negative) Trace-intact H Urine Nitrite (Negative) Negative Urine Bilirubin (Negative) Negative Urine Urobilinogen (Up TO 0.2) EU/dL 0.2 Ur Leukocyte Esterase (Negative) Negative Urine RBC (0-2) HPF 5-10 H Urine WBC (0-5) HPF 0-2 Ur Epithelial Cells (Negative) HPF Few Urine Crystals (Negative) HPF Negative Urine Bacteria (Negative) HPF Rare Urine Casts (Negative) LPF Negative Urine Mucus (Negative) Trace Ur Culture Indicated? No Urine Glucose (Negative) mg/dL Negative HPI General Mode of arrival: ambulatory. Date/Time Provider Initiated Documentation: 03/03/21 10:15. Limitations to Documentation: no limitations. Information obtained by: patient. HPI Narrative: Patient is a 36-year-old female with a history of anxiety, depression, cholecystectomy, hernia repair, hysterectomy who presents left-sided abdominal pain since yesterday and vomiting this morning. She states the left-sided lower abdominal pain is sharp and constant. She states she vomited this morning and it has been mainly bile. She states she did have a normal bowel movement this morning. She denies any fever, diarrhea or urinary symptoms. Related Data Home Medications Medication Instructions Recorded Confirmed ropinirole 2 mg PO HS 06/08/15 03/03/21 venlafaxine 300 mg PO DAILY 12/17/16 03/03/21 acetaminophen [Tylenol] 650 mg PO PRN PRN 04/16/17 03/03/21 gabapentin 800 mg PO .QHS 05/21/20 03/03/21 magnesium oxide 400 mg PO HS 05/21/20 03/03/21 metoclopramide HCl 10 mg PO DIRECTED PRN 05/21/20 03/03/21 ondansetron HCl [Zofran] 4 mg PO Q8H PRN #10 tab 06/01/20 03/03/21 pantoprazole 40 mg PO HS 11/24/20 03/03/21 oxycodone 5 mg PO Q6H PRN #14 tab MDD 4 tabs 11/25/20 03/03/21 ondansetron 4 mg PO TID PRN #6 tab 03/03/21 polyethylene glycol 3350 [Miralax] 17 g PO PRN PRN 03/03/21 03/03/21 prochlorperazine maleate 10 mg PO PRN PRN 03/03/21 03/03/21 tramadol 50 mg PO TID PRN #5 tab 03/03/21 Previous Rx's Medication Instructions Recorded ondansetron HCl [Zofran] 4 mg PO Q8H PRN #10 tab 06/01/20 oxycodone 5 mg PO Q6H PRN #14 tab MDD 4 tabs 11/25/20 ondansetron 4 mg PO TID PRN #6 tab 03/03/21 tramadol 50 mg PO TID PRN #5 tab 03/03/21 Allergies Allergy/AdvReac Type Severity Reaction Status Date / Time Penicillins Allergy Severe Swelling Unverified 03/03/21 11:35 in throat granda flavor Allergy Intermediate throat Unverified 03/03/21 11:35 bleeds,swelling kiwi Allergy Intermediate throat Unverified 03/03/21 11:35 swells latex Allergy Mild rash,swelli Unverified 03/03/21 11:35 ng naproxen AdvReac Intermediate Nausea Unverified 03/03/21 11:35 sumatriptan [From Imitrex] AdvReac Mild Headache Unverified 03/03/21 11:35 wool Allergy Mild Skin Rash Uncoded 03/03/21 11:35 General IVAN: 3 Review of Systems All systems reviewed & are unremarkable except as noted in HPI and below Constitutional Constitutional: Reports as per HPI, Denies chills and Denies fever(s) Eyes Eyes: Denies blurry vision ENT Ears, Nose, Mouth, and Throat: Denies dizziness, Denies sore throat and Denies throat swelling Cardiovascular Cardiovascular: Denies chest pain and Denies dyspnea Respiratory Respiratory: Denies cough and Denies dyspnea Gastrointestinal Gastrointestinal: Reports abdominal pain, Denies diarrhea and Reports vomiting Genitourinary Genitourinary: Denies hematuria and Denies dysuria Musculoskeletal Musculoskeletal: Denies back pain and Denies numbness Integumentary/Breasts Skin/Breast: Denies lesions and Denies rash Neurologic Neurologic: Denies dizziness, Denies localized weakness and Denies numbness Allergic/Immunologic Allergic/Immunologic: Denies throat swelling [facility] Medical History (Updated 03/03/21 @ 15:18 by Mallorie Lilly DO) Anxiety BMI 35.0-35.9,adult Cholecystitis GERD (gastroesophageal reflux disease) Migraine Pelvic pain in female Restless leg syndrome Right ovarian cyst Umbilical hernia Surgical History (Updated 12/01/20 @ 08:59 by Sienna Macias MD) Diagnostic Laproscopy 2003 [facility] bilateral ovarian cystectomies 11/2009. Diagnostic laparoscopy for chronic RLQ pain after LAVH in 2009. EGD - MAC (12/16/16) History of umbilical hernia repair (~09/13/19) Hysterectomy, Laproscopic (~11/2009) LAVH, ovarian conservation for dysmenorrhea Oophrectomy, Right (06/09/15) Laparoscopic RSO with L salpingectomy for R sided pelvic pain. R corpus luteum cyst. no pathology. R wrist cyst removal 10/2002 S/P laparoscopic cholecystectomy (~11/25/20) Tooth extraction 07/2014 wisdom teeth extraction Social History Smoking/Tobacco Use Status: Current every day Tobacco Type: cigarettes Tobacco: How many years used: 13 Smoking risk assessment performed?: Yes Alcohol Intake: current Alcohol Intake frequency: holidays/special occasions only Alcohol type: beer, wine and hard liquor Drug use: Daily Substance use type: marijuana Current gender identity: female Do you feel safe at home: Yes Do you feel safe in your relationship?: Yes Exam Const General: cooperative, uncomfortable and no acute distress Orientation: alert, awake and oriented x3 HENMT Head: normal to inspection Face and sinus: normal facial exam Eyes General: appearance normal, both eyes and all related structures EOM: EOM intact bilaterally Neck Neck: normal visual inspection and No submandibular swelling Lymphatic: no lymphadenopathy noted Chest Chest: normal inspection of the chest and no tenderness Resp Effort & Inspection: normal respiratory effort and able to speak in complete sentences Auscultation: clear to auscultation bilaterally Cardio Rate: regular rate Rhythm: regular rhythm GI Inspection: normal to inspection and obesity Palpation: soft, not firm, not rigid and tender in the LLQ Auscultation: hypoactive bowel sounds Skin General skin exam: no rashes or lesions noted Neuro General: patient alert, patient awake and patient oriented x3 Cognition: normal cognition Speech: speech normal Motor: muscle tone normal throughout Sensory Exam: no sensory deficits noted Extrem General: normal to inspection, full ROM, capillary refill normal, no calf tenderness bilaterally and no edema Psych Appearance: grossly normal Mental Status: mental status grossly normal Speech and Movement: speech and movement normal Affect: normal affect
--- NOTE | 2021-03-03 10:30 | DI.CT_ITS ---
Exam(s) CT ABDOMEN PELVIS W EXAM: CT ABDOMEN PELVIS W INDICATION: LLQ abd pain,r/o diverticulitis, appendicitis, sbo. COMPARISON: CT CT ABDOMEN PELVIS W from 08/29/2019 TECHNIQUE: FINDINGS: CT examination of the abdomen and pelvis was performed with a bolus infusion of 100 cc of Omnipaque 3 50. Images obtained through the lung bases are unremarkable. The liver is unremarkable in appearance. Vascular clips noted in gallbladder fossa, presumed prior cholecystectomy but there does appear to be a cystic structure consistent with persistent gallbladder versus hepatic cyst. No biliary dilatatio n. Please correlate with surgical history. Pancreas appears normal. Spleen is unremarkable in appearance. Adrenals appear normal. The kidneys are unremarkable with no evidence of hydronephrosis, nephrolithiasis, or renal mass.. Ur inary bladder empty but unremarkable. Abdominal aorta is of normal diameter and no major vascular abnormality is seen. No abdominal wall hernia. No abdominal or pelvic adenopathy. Uterus appears to be absent, please correlate with surgical history. Appendix is normal. No evidence of diverticulitis or bowel obstruction. There is question wall thickening of the colon versus underdistention. Please correlate clinically r egarding the possibility of colitis. IMPRESSION: A question colonic wall edema versus underdistention. Colitis not excluded, please correlate clinica lly. No other significant findings. RADIATION DOSE DELIVERED: 1,220.84mGy.cm Total DLP 1,220.84mGy.cm Total DLP 23.14mGy CTDIvol RADIATION OPTIMIZATION: All CT scans at this facility use at least one of these dose optimization te chniques: automated exposure control; mA and/or kV adjustment per patient size (includes targeted exa ms where dose is matched to clinical indication); or iterative reconstruction.
[2021-03-03] MEDS: Normal Saline 1,000 ML 1000 ML IV ×2 (10:50→11:43)
[2021-03-03 10:53] LABS: Abs Immature Grans 0.04 10^3/uL (0.0-0.06); Absolute Basophil Count 0.11 10^3/uL (0.0-0.2); Absolute Eosinophil Count 0.15 10^3/uL (0.0-0.7); Absolute Lymphocyte Count 2.45 10^3/uL (1.2-3.4); Absolute Neutrophil Count 10.25 10^3/uL (1.2-6.7); Basophils % 0.8; Eosinophils % 1.1; HCT 47.9 % (36.0-46.0); HGB 15.9 g/dL (11.2-15.7); Immature Grans % 0.3; Lymphocytes % 17.6; MCH 30.1 pg (27.0-33.0); MCHC 33.2 % (32.0-36.0); MCV 90.5 fL (80-95); MPV 10.6 fL (8.0-11.0); Monocytes % 6.7; Neutrophils % 73.5; Nucleated RBC 0 %; Platelet Count 334 10^3/uL (130-400); RBC 5.29 10^6/uL (3.93-5.22); RDW 13.2 % (11.7-14.6); RDW-SD 44.4 fL; WBC 13.94 10^3/uL (4.4-10.8)
[2021-03-03] MEDS: Ondansetron 4 MG/2 ML VIAL IVP (10:53)
[2021-03-03 10:54] LABS: Absolute Monocyte Count 0.93 10^3/uL (0.1-0.8)
[2021-03-03] MEDS: MORPHine 4 MG/ML SYR IVP (10:54)
[2021-03-03 11:08] LABS: ALT 61 U/L (14-59); AST 34 U/L (15-37); Albumin 3.7 g/dL (3.4-5.0); Alkaline Phosphatase 172 U/L (46-116); Anion Gap 11.7 mmol/L (3-11); BUN 10 mg/dL (7-18); Bilirubin, Total 0.4 mg/dL (0.2-1.0); CO2 24.3 mmol/L (21.0-32.0); CREATININE 1.1 mg/dL (0.55-1.02); Calcium 9.3 mg/dL (8.5-10.1); Chloride 104 mmol/L (98-107); Estimated GFR 55.89 (mL/min/1.73m2); Glucose 118 mg/dL (74-106); Lipase 35 U/L (73-393); Potassium 3.7 mmol/L (3.5-5.1); Sodium 140 mmol/L (136-145); Total Protein 8.4 g/dL (6.4-8.2)
[2021-03-03] MEDS: Omnipaque 350 MG/ML 100 ML BTL IV (11:29)
[2021-03-03] MEDS: Ketorolac 30 MG/ML VIAL IVP (11:42)
--- NOTE | 2021-03-03 11:45 | DI.VRAD_ITS ---
PROCEDURE INFORMATION: Exam: CT Abdomen And Pelvis With Contrast Exam date and time: 03/03/2021 10:38 AM Age: 36 years old Clinical indication: Other: Llq abd pain, R/O diverticulitis, appendicitis, sbo TECHNIQUE: Imaging protocol: Computed tomography of the abdomen and pelvis with contrast. Radiation optimization: All CT scans at this facility use at least one of these dose optimization techniques: automated exposure control; mA and/or kV adjustment per patient size (includes targeted exams where dose is matched to clinical indication); or iterative reconstruction. Contrast material: OMNIPAQUE 350; Contrast volume: 100 ml; Contrast route: INTRAVENOUS (IV); COMPARISON: CT ABDOMEN PELVIS W 08/29/2019 2:56 PM FINDINGS: Liver: 3.2 cm simple cyst in the right lobe of the liver. . No follow-up imaging recommended . Gallbladder and bile ducts: Cholecystectomy Pancreas: Normal. No ductal dilation. Spleen: Normal. No splenomegaly. Adrenal glands: Normal. No mass. Kidneys and ureters: Normal. No hydronephrosis. Stomach and bowel: Low-attenuation bowel wall thickening is seen throughout the colon consistent with colitis. Differential diagnosis includes infectious and inflammatory etiologies.. A few loops of dilated small bowel with air-fluid levels. More distally the small bowel tapers. This may represent ileus. No ainsley obstruction. Appendix: No evidence of appendicitis. Intraperitoneal space: Unremarkable. No free air. No significant fluid collection. Vasculature: Unremarkable. No abdominal aortic aneurysm. Lymph nodes: Unremarkable. No enlarged lymph nodes. Urinary bladder: Unremarkable as visualized. Reproductive: Surgical resection of the uterus Bones/joints: Unremarkable. No acute fracture. Soft tissues: Unremarkable. IMPRESSION: 1. Low-attenuation bowel wall thickening is seen throughout the colon consistent with colitis. Differential diagnosis includes infectious and inflammatory etiologies.. 2. A few loops of dilated small bowel with air-fluid levels. More distally the small bowel tapers. This may represent ileus. No ainsley obstruction. Dictated and Authenticated by: Elvie Lawson MD. Ordering:AVERY Nobles MD
[2021-03-03] MEDS: HYDROmorphone 2 MG/ML VIAL 1 MG IVP ×2 (12:37→13:54)
[2021-03-03 12:40] LABS: Bilirubin Negative (Negative); Blood Trace-intact (Negative); Clarity Clear (Clear); Glucose Negative (Negative); Ketones 15 mg/dL (Negative); Leukocyte Esterase Negative (Negative); Nitrite Negative (Negative); Specific Gravity 1.015 (1.005-1.025); Urobilinogen 0.2 EU/dL (Up TO 0.2)
[2021-03-03 12:51] LABS: Bacteria Rare HPF (Negative); C & S Indicated? No; Casts Negative LPF (Negative); Crystals Negative HPF (Negative); Epithelial Cells Few HPF (Negative); Mucus Trace (Negative); WBC 0-2 HPF (0-5)
[2021-03-03] MEDS: diazePAM 5 MG TAB PO (13:52)
[2021-03-03] MEDS: Ondansetron O.D.T. 4 MG TABEF, 3 TABS/BTL PO (15:29)
== END 2021-03-03 15:47 | disposition home or self-care (01) ==
PROVIDERS: Emergency Provider Physician Assistant; PCP Physician Assistant Medical
DX: K52.9 Noninfective gastroenteritis and colitis, unspecified (principal); R11.2 Nausea with vomiting, unspecified
CPT/HCPCS: 80053; 83690; 96361; 96374; 96375; 96376; 99285; 74177; 81003; 81015; 85025; 99284; J1885; J2270; J2405; J3490

== ENCOUNTER 2021-03-06 10:38 | Emergency (ER) | payer MEDICAID, SELFPAY ==
[2021-03-06] VITALS (9 sets, daily range): BP systolic 105–140; BP diastolic 68–94; PULSE 64–78; RESP 14–20; TEMP 37.1; O2SAT 94–100
--- NOTE | 2021-03-06 10:44 | W.ED.GENAD ---
Discharge Plan Disposition Patient Disposition: HOME Condition: Stable Discharge Details Clinical Impression: Abdominal pain Primary Care Provider: [facility] ED Provider: Salvatore Quarles Home Meds and New Rx's Prescriptions: New promethazine 25 mg suppository 25 mg VT Q6H PRNQty: 10 RF: 0 dicyclomine 20 mg tablet 20 mg PO TID Qty: 10 RF: 0 Continued ropinirole 1 MG tablet 2 mg PO HS RF: 0 magnesium oxide 400 mg (241.3 mg magnesium) tablet 400 mg PO HS RF: 0 metoclopramide HCl 10 mg tablet 10 mg PO DIRECTED PRNRF: 0 gabapentin 300 MG capsule 800 mg PO .QHS RF: 0 ondansetron HCl [Zofran] 4 mg tablet 4 mg PO Q8H PRN (Reason: nausea and vomiting) Qty: 10 RF: 0 venlafaxine 150 MG capsule,extended release 24hr 300 mg PO DAILY RF: 0 acetaminophen [Tylenol] 325 MG tablet 650 mg PO PRN PRNRF: 0 pantoprazole 40 mg tablet,delayed release (DR/EC) 40 mg PO HS RF: 0 Discharge Instructions Instructions: Abdominal Pain (ED) Additional Instructions: Laboratory values do not reveal any obvious emergent process. Oral Bentyl and Phenergan suppositories as directed. Clear liquid diet, advance as tolerated. Please watch for new or worsening symptoms and return to the ER for any concerns. Otherwise please contact your primary care provider's office later today to discuss your ER visit and need for outpatient reevaluation. Medical Decision Making 36-year-old female, seen in our ER on the seventh, diagnosed with colitis, reports diarrhea has improved, continues to have abdominal pain nausea and vomiting. Seen by her primary care provider today and sent to the ER for further evaluation. Clinically she appears well, nontoxic, no acute distress, hemodynamically stable. No dry heaving or vomiting. Abdomen is diffusely tender on the left side but there is no guarding, rebound or rigidity. She is afebrile. Plan is to obtain IV access, give IV Zofran and Toradol, obtain routine laboratory values. Reviewing patient's medical record she has had multiple CT imaging and would like to avoid additional radiation if at all possible. Patient is agreeable with this plan. Patient denies any significant improvement with Toradol and Zofran, will give 2 mg IV morphine and 25 IV Phenergan. Laboratory values have resulted and do not reveal any obvious emergent process. White blood cell count is normal at 7.81. Patient was witnessed ambulating to the restroom multiple times steadily. She has had no vomiting while under my care. Reports some improvement with the morphine. Patient continues to have mild left-sided abdominal pain but no guarding, rebound or rigidity. Urinalysis reveals trace ketones but negative for nitrates, leuk esterase, white cells. Discussed findings with patient. She is comfortable discharge at this time. Will provide Phenergan suppositories and p.o. Bentyl. Recommend outpatient follow-up through her primary care provider and encouraged to return to the ER for new or worsening symptoms. Standard discharge and return precautions given This documentation was generated using [employer] dictation system, please disregard any oddities of phrase or misspellings. Medical Records Medical records reviewed: Yes I reviewed the patient's medical records. Lab Data Labs: Laboratory Tests Range/Units 03/06/21 03/06/21 03/06/21 10:05 10:05 12:15 WBC (4.4-10.8) 10^3/uL 7.81 RBC (3.93-5.22) 10^6/uL 4.93 Hgb (11.2-15.7) g/dL 14.9 Hct (36.0-46.0) % 44.9 MCV (80-95) fL 91.1 MCH (27.0-33.0) pg 30.2 MCHC (32.0-36.0) % 33.2 RDW (11.7-14.6) % 13.1 Plt Count (130-400) 10^3/uL 292 MPV (8.0-11.0) fL 10.5 Immature Gran % 0.3 Neutrophils % 62.6 Lymphocytes % 26.9 Monocytes % 5.6 Eosinophils % 3.3 Basophils % 1.3 Nucleated RBC % % 0 Absolute Neutrophils (1.2-6.7) 10^3/uL 4.89 Absolute Lymphocytes (1.2-3.4) 10^3/uL 2.10 Absolute Monocytes (0.1-0.8) 10^3/uL 0.44 Absolute Eosinophils (0.0-0.7) 10^3/uL 0.26 Absolute Basophils (0.0-0.2) 10^3/uL 0.10 Sodium (136-145) mmol/L 140 Potassium (3.5-5.1) mmol/L 4.1 Chloride (98-107) mmol/L 104 Carbon Dioxide (21.0-32.0) mmol/L 26.4 Anion Gap (3-11) mmol/L 9.6 BUN (7-18) mg/dL 7 Creatinine (0.55-1.02) mg/dL 1.0 Estimated GFR/1.73 m2 (mL/min/1.73m2) >= 60.00 Glucose (74-106) mg/dL 98 Calcium (8.5-10.1) mg/dL 8.7 Total Bilirubin (0.2-1.0) mg/dL 0.5 AST (15-37) U/L 38 H ALT (14-59) U/L 74 H Alkaline Phosphatase (46-116) U/L 143 H Total Protein (6.4-8.2) g/dL 7.6 Albumin (3.4-5.0) g/dL 3.4 Lipase (73-393) U/L 65 Urine Color (Yellow) [place] Urine Clarity (Clear) Sl Cloudy Urine pH (5-8) 5.5 Ur Specific [place] (1.005-1.025) >= 1.030 H Urine Protein (Negative) mg/dL Trace H Urine Ketones (Negative) mg/dL Trace H Urine Blood (Negative) Negative Urine Nitrite (Negative) Negative Urine Bilirubin (Negative) Small H Urine Urobilinogen (Up TO 0.2) EU/dL 1.0 H Ur Leukocyte Esterase (Negative) Negative Urine RBC (0-2) HPF Negative Urine WBC (0-5) HPF 0-2 Ur Epithelial Cells (Negative) HPF Many Urine Crystals (Negative) HPF Negative Urine Bacteria (Negative) HPF Moderate Urine Mucus (Negative) Moderate Ur Culture Indicated? No/Sq. Contamination Urine Glucose (Negative) mg/dL Negative Urine Opiates Screen (Negative) Urine Methadone Screen (Negative) Ur Barbiturates Screen (Negative) Ur Tricyclics Screen (Negative) Ur Amphetamines Screen (Negative) U Benzodiazepines Scrn (Negative) Urine Cocaine Screen (Negative) Ur THC Screen (Negative) Range/Units 03/06/21 12:15 WBC (4.4-10.8) 10^3/uL RBC (3.93-5.22) 10^6/uL Hgb (11.2-15.7) g/dL Hct (36.0-46.0) % MCV (80-95) fL MCH (27.0-33.0) pg MCHC (32.0-36.0) % RDW (11.7-14.6) % Plt Count (130-400) 10^3/uL MPV (8.0-11.0) fL Immature Gran % Neutrophils % Lymphocytes % Monocytes % Eosinophils % Basophils % Nucleated RBC % % Absolute Neutrophils (1.2-6.7) 10^3/uL Absolute Lymphocytes (1.2-3.4) 10^3/uL Absolute Monocytes (0.1-0.8) 10^3/uL Absolute Eosinophils (0.0-0.7) 10^3/uL Absolute Basophils (0.0-0.2) 10^3/uL Sodium (136-145) mmol/L Potassium (3.5-5.1) mmol/L Chloride (98-107) mmol/L Carbon Dioxide (21.0-32.0) mmol/L Anion Gap (3-11) mmol/L BUN (7-18) mg/dL Creatinine (0.55-1.02) mg/dL Estimated GFR/1.73 m2 (mL/min/1.73m2) Glucose (74-106) mg/dL Calcium (8.5-10.1) mg/dL Total Bilirubin (0.2-1.0) mg/dL AST (15-37) U/L ALT (14-59) U/L Alkaline Phosphatase (46-116) U/L Total Protein (6.4-8.2) g/dL Albumin (3.4-5.0) g/dL Lipase (73-393) U/L Urine Color (Yellow) Urine Clarity (Clear) Urine pH (5-8) Ur Specific [place] (1.005-1.025) Urine Protein (Negative) mg/dL Urine Ketones (Negative) mg/dL Urine Blood (Negative) Urine Nitrite (Negative) Urine Bilirubin (Negative) Urine Urobilinogen (Up TO 0.2) EU/dL Ur Leukocyte Esterase (Negative) Urine RBC (0-2) HPF Urine WBC (0-5) HPF Ur Epithelial Cells (Negative) HPF Urine Crystals (Negative) HPF Urine Bacteria (Negative) HPF Urine Mucus (Negative) Ur Culture Indicated? Urine Glucose (Negative) mg/dL Urine Opiates Screen (Negative) Positive A Urine Methadone Screen (Negative) Negative Ur Barbiturates Screen (Negative) Negative Ur Tricyclics Screen (Negative) Negative Ur Amphetamines Screen (Negative) Negative U Benzodiazepines Scrn (Negative) Positive A Urine Cocaine Screen (Negative) Negative Ur THC Screen (Negative) Positive A HPI General Mode of arrival: ambulatory. Date/Time Provider Initiated Documentation: 03/06/21 10:38. Limitations to Documentation: no limitations. Information obtained by: patient. HPI Narrative: This is a 36-year-old female, past medical history that includes anxiety, increased BMI, GERD, migraines, restless leg syndrome, multiple laparoscopic procedures, hysterectomy, right oophorectomy, cholecystectomy, presenting for ongoing left abdominal-flank pain, nausea and vomiting. Patient seen in the ER on March 03, work-up revealed colitis, subsequently discharged. Patient reports that the medications that were provided has not been helping, she is concerned about dehydration cannot hold any of her fluids down. She was seen by her primary care provider today who sent back to the ER for further evaluation. She denies recent trauma, fever, chest pain, shortness of breath, dysuria, hematuria, constipation. She reports one episode of diarrhea over the past few days, reports decreased urine output secondary to dehydration. Patient denies any history of small bowel obstruction, kidney stone, kidney infection, etc. Patient reports the pain is moderate, worse with movement. Denies vaginal bleeding or discharge Related Data Home Medications Medication Instructions Recorded Confirmed ropinirole 2 mg PO HS 06/08/15 03/06/21 venlafaxine 300 mg PO DAILY 12/17/16 03/06/21 acetaminophen [Tylenol] 650 mg PO PRN PRN 04/16/17 03/06/21 gabapentin 800 mg PO .QHS 05/21/20 03/06/21 magnesium oxide 400 mg PO HS 05/21/20 03/06/21 metoclopramide HCl 10 mg PO DIRECTED PRN 05/21/20 03/06/21 ondansetron HCl [Zofran] 4 mg PO Q8H PRN #10 tab 06/01/20 03/06/21 pantoprazole 40 mg PO HS 11/24/20 03/06/21 dicyclomine 20 mg PO TID #10 tab 03/06/21 promethazine 25 mg VT Q6H PRN #10 ea 03/06/21 Previous Rx's Medication Instructions Recorded ondansetron HCl [Zofran] 4 mg PO Q8H PRN #10 tab 06/01/20 dicyclomine 20 mg PO TID #10 tab 03/06/21 promethazine 25 mg VT Q6H PRN #10 ea 03/06/21 Allergies Allergy/AdvReac Type Severity Reaction Status Date / Time Penicillins Allergy Severe Swelling Unverified 03/03/21 11:35 in throat granda flavor Allergy Intermediate throat Unverified 03/03/21 11:35 bleeds,swelling kiwi Allergy Intermediate throat Unverified 03/03/21 11:35 swells latex Allergy Mild rash,swelli Unverified 03/03/21 11:35 ng naproxen AdvReac Intermediate Nausea Unverified 03/03/21 11:35 sumatriptan [From Imitrex] AdvReac Mild Headache Unverified 03/03/21 11:35 wool Allergy Mild Skin Rash Uncoded 03/03/21 11:35 General IVAN: 3 Review of Systems Constitutional Constitutional: Denies fever(s) and Denies headache(s) ENT Ears, Nose, Mouth, and Throat: Denies headache(s) Cardiovascular Cardiovascular: Denies chest pain and Denies dyspnea Respiratory Respiratory: Denies dyspnea Gastrointestinal Gastrointestinal: Reports abdominal pain, Denies constipation, Reports diarrhea, Reports nausea and Reports vomiting Genitourinary Genitourinary: Denies abnormal vaginal bleeding, Denies dysuria and Denies vaginal discharge Musculoskeletal Musculoskeletal: Denies back pain Integumentary/Breasts Skin/Breast: Denies rash Neurologic Neurologic: Denies headache(s) PFSH Medical History Anxiety BMI 35.0-35.9,adult Cholecystitis GERD (gastroesophageal reflux disease) Migraine Pelvic pain in female Restless leg syndrome Right ovarian cyst Umbilical hernia Surgical History Diagnostic Laproscopy 2002 [facility]. bilateral ovarian cystectomies 11/2009. Diagnostic laparoscopy for chronic RLQ pain after LAVH in 2009. EGD - MAC (12/16/16) History of umbilical hernia repair (~09/13/19) Hysterectomy, Laproscopic (~11/2009) LAVH, ovarian conservation for dysmenorrhea Oophrectomy, Right (06/09/15) Laparoscopic RSO with L salpingectomy for R sided pelvic pain. R corpus luteum cyst. no pathology. R wrist cyst removal 10/2002 S/P laparoscopic cholecystectomy (~11/25/20) Tooth extraction 07/2014 wisdom teeth extraction Social History Smoking/Tobacco Use Status: Current every day Tobacco Type: cigarettes Tobacco: How many years used: 13 Smoking risk assessment performed?: Yes Alcohol Intake: current Alcohol Intake frequency: holidays/special occasions only Alcohol type: beer, wine and hard liquor Drug use: Current Sobriety Substance use type: marijuana Current gender identity: female Do you feel safe at home: Yes Do you feel safe in your relationship?: Yes Exam Const General: cooperative, healthy appearing, comfortable and no acute distress Orientation: alert and awake HENMT Head: normal to inspection, normocephalic and atraumatic Face and sinus: normal facial exam Mouth: moist mucous membranes Eyes General: appearance normal, both eyes and all related structures Conjunctivae: conjunctivae normal Neck Neck: normal visual inspection, trachea midline and supple Resp Effort & Inspection: normal respiratory effort and able to speak in complete sentences Auscultation: clear to auscultation bilaterally Cardio Rate: regular rate Rhythm: regular rhythm GI Inspection: normal to inspection and obesity Palpation: soft, not firm, no guarding, no pulsatile masses and tender (Diffuse mild left) with no rebound tenderness Auscultation: normal bowel sounds Back/Spine/Pelvis Back: no CVA tenderness and No back tenderness Skin General skin exam: no rashes or lesions noted Neuro General: patient alert, patient awake, moves all extremities and no focal motor deficits Cognition: normal cognition Speech: speech normal Gait: normal gait Sensory Exam: no sensory deficits noted Psych Appearance: grossly normal Mental Status: mental status grossly normal
[2021-03-06 11:05] LABS: Abs Immature Grans 0.02 10^3/uL (0.0-0.06); Absolute Eosinophil Count 0.26 10^3/uL (0.0-0.7); Absolute Monocyte Count 0.44 10^3/uL (0.1-0.8); Absolute Neutrophil Count 4.89 10^3/uL (1.2-6.7); Basophils % 1.3; Eosinophils % 3.3; HCT 44.9 % (36.0-46.0); HGB 14.9 g/dL (11.2-15.7); Immature Grans % 0.3; Lymphocytes % 26.9; MCH 30.2 pg (27.0-33.0); MCHC 33.2 % (32.0-36.0); MCV 91.1 fL (80-95); MPV 10.5 fL (8.0-11.0); Monocytes % 5.6; Neutrophils % 62.6; Nucleated RBC 0 %; Platelet Count 292 10^3/uL (130-400); RBC 4.93 10^6/uL (3.93-5.22); RDW 13.1 % (11.7-14.6); RDW-SD 44.1 fL; WBC 7.81 10^3/uL (4.4-10.8)
[2021-03-06] MEDS: Normal Saline 1,000 ML 1000 ML IV ×2 (11:07→11:56)
[2021-03-06] MEDS: Ketorolac 30 MG/ML VIAL IVP (11:13)
[2021-03-06] MEDS: Ondansetron 4 MG/2 ML VIAL IVP (11:14)
[2021-03-06 11:21] LABS: ALT 74 U/L (14-59); AST 38 U/L (15-37); Albumin 3.4 g/dL (3.4-5.0); Alkaline Phosphatase 143 U/L (46-116); Anion Gap 9.6 mmol/L (3-11); BUN 7 mg/dL (7-18); Bilirubin, Total 0.5 mg/dL (0.2-1.0); CO2 26.4 mmol/L (21.0-32.0); Calcium 8.7 mg/dL (8.5-10.1); Chloride 104 mmol/L (98-107); Glucose 98 mg/dL (74-106); Lipase 65 U/L (73-393); Potassium 4.1 mmol/L (3.5-5.1); Sodium 140 mmol/L (136-145); Total Protein 7.6 g/dL (6.4-8.2)
[2021-03-06] MEDS: MORPHine 10 MG/ML VIAL 2 MG IVP (11:51)
[2021-03-06 12:54] LABS: Bilirubin Small (Negative); Blood Negative (Negative); Clarity Sl Cloudy (Clear); Glucose Negative (Negative); Ketones Trace mg/dL (Negative); Leukocyte Esterase Negative (Negative); Nitrite Negative (Negative); Specific Gravity >= 1.030 (1.005-1.025); pH 5.5 (5-8)
[2021-03-06 13:03] LABS: Bacteria Moderate HPF (Negative); Crystals Negative HPF (Negative); Mucus Moderate (Negative); RBC Negative HPF (0-2); WBC 0-2 HPF (0-5)
[2021-03-06 13:04] LABS: Epithelial Cells Many HPF (Negative)
[2021-03-06 13:05] LABS: *AMPHETAMINES SCREEN URINE Negative (Negative); *BARBITURATES SCREEN URINE Negative (Negative); *BENZODIAZEPINES SCREEN URINE Positive (Negative); C & S Indicated? No/Sq. Contamination; Cannabinoids THC Positive (Negative); Cocaine Screen,Urine Negative (Negative); METHADONE URINE SCREEN Negative (Negative); OPIATES URINE SCREEN Positive (Negative)
[2021-03-06 13:10] LABS: Tricyclic Antidepressants Negative (Negative)
== END 2021-03-06 13:52 | disposition home or self-care (01) ==
PROVIDERS: Emergency Provider Physician Assistant; PCP Physician Assistant Medical
DX: R10.9 Unspecified abdominal pain (principal); R11.2 Nausea with vomiting, unspecified
CPT/HCPCS: 80053; 80307; 83690; 96361; 96365; 96375; 99284; 81003; 81015; 85025; J1885; J2270; J2405

== ENCOUNTER 2021-03-12 13:31 | Outpatient (REF) | payer MEDICAID, SELFPAY ==
[2021-03-12 19:08] LABS: Hemoglobin A1C 5.4 % (<5.7)
[2021-03-14 10:38] LABS: Hepatitis A Antibody IgM Negative (Negative); Hepatitis B Core Antibody Negative (Negative); Hepatitis B surface Ag Negative (Negative); Hepatitis C Ab w Rflx HCV PCR Negative (Negative)
== END 2021-03-12 13:32 | disposition home or self-care (01) ==
LOC: NCHCN 13:31
PROVIDERS: PCP Physician Assistant Medical; Visit Provider Physician Assistant Medical
DX: R10.9 Unspecified abdominal pain (principal); R19.7 Diarrhea, unspecified; R79.89 Other specified abnormal findings of blood chemistry; R42 Dizziness and giddiness
CPT/HCPCS: 86704; 86709; 86803; 87340; 83036

== ENCOUNTER 2021-05-28 08:07 | Emergency (ER) | payer MEDICAID, SELFPAY ==
[2021-05-28] VITALS (19 sets, daily range): BP systolic 106–148; BP diastolic 63–101; PULSE 59–91; RESP 15–32; TEMP 36.1; O2SAT 96–100
--- NOTE | 2021-05-28 08:30 | RT.EKG_ITS ---
APPROVED REPORT Exam: Resting ECG Reason for Exam: sob Patient Location: E HR:68 bpm ECG Measurements Heart Rate 68 AXIS [place] 141 P -6 QRSd 99 QRS 4 QT 413 T [id number] QTc 441 Conclusion Sinus rhythm...normal P axis, V-rate 60- 99 no STEMI, non-diagnostic EKG I have reviewed and interpreted ECG and agree with software generated interpretation.
--- NOTE | 2021-05-28 08:38 | W.ED.GENAD ---
Discharge Plan Disposition Patient Disposition: HOME Condition: Improving Discharge Details Clinical Impression: Nausea vomiting and diarrhea, Cephalgia Primary Care Provider: [facility] ED Provider: Salvatore Quarles Home Meds and New Rx's Prescriptions: New ondansetron HCl [Zofran] 4 mg tablet 4 mg PO Q8H PRNQty: 10 RF: 0 Continued doxycycline hyclate 100 mg capsule 100 mg PO BID Qty: 14 RF: 0 ropinirole 1 MG tablet 2 mg PO HS RF: 0 magnesium oxide 400 mg (241.3 mg magnesium) tablet 400 mg PO HS RF: 0 metoclopramide HCl 10 mg tablet 10 mg PO DIRECTED PRNRF: 0 gabapentin 300 MG capsule 800 mg PO .QHS RF: 0 ondansetron HCl [Zofran] 4 mg tablet 4 mg PO Q8H PRN (Reason: nausea and vomiting) Qty: 10 RF: 0 promethazine 25 mg suppository 25 mg OH Q6H PRNQty: 10 RF: 0 dicyclomine 20 mg tablet 20 mg PO TID Qty: 10 RF: 0 venlafaxine 150 MG capsule,extended release 24hr 300 mg PO DAILY RF: 0 acetaminophen [Tylenol] 325 MG tablet 650 mg PO PRN PRNRF: 0 pantoprazole 40 mg tablet,delayed release (DR/EC) 40 mg PO HS RF: 0 Discharge Instructions Instructions: Acute Nausea and Vomiting (ED), General Headache (ED) Additional Instructions: Laboratory values did not reveal any obvious emergent process. Zofran as directed for nausea. You may use [id number] Imodium for diarrhea. As we discussed yeqb-skx-jwufjfs medications such as Tylenol, Motrin, antihistamines, decongestants, etc. for symptomatic control. Plenty of fluids to avoid dehydration. Please watch for new or worsening symptoms and return to the ER for any concerns. Lastly, I recommend contacting your primary care provider to discuss your ongoing symptoms and need for outpatient reevaluation Medical Decision Making This is a 36-year-old female who presents complaining of multiple complaints, significant other at home has similar symptoms. Clinically she appears well, nontoxic, afebrile, pulse in the 80s, respirations normal, satting 97% on room air. Given her multitude of complaints, would like to obtain IV access, give IV fluid, Toradol, Tylenol, Compazine, Benadryl for her migraines, nausea and vomiting. Given her chest pressure and discomfort when coughing, will obtain a single troponin and EKG although extremely low suspicion for PE. Will not pursue D-dimer given the PERC criteria. Will obtain CBC, CMP, chest x-ray, flu, Covid swab to further evaluate potential infectious process. Patient is comfortable with plan and has no additional questions or concerns. Laboratory values do not reveal any obvious emergent process. No evidence of leukocytosis, anemia, electrolyte abnormality, significant kidney disease, troponin is less than 0.01, urinalysis reveals no evidence of infection, negative for ketones. Chest x-ray unremarkable. Negative flu and Covid. Benign medical work-up here in the ER. Patient remains hemodynamically stable. Upon reevaluation she is resting comfortably, reports significant improvement with medications. Patient is comfortable discharge at this time. Will provide prescription of Zofran given her nausea and vomiting. We discussed treating her symptoms with uynk-gfn-xkvrqvv medications. Strict discharge and return precautions provided. Otherwise she will contact her primary care provider for outpatient follow-up. No vomiting or diarrhea while under my care here in the ER This documentation was generated using [employer] dictation system, please disregard any oddities of phrase or misspellings. Medical Records Medical records reviewed: Yes I reviewed the patient's medical records. Imaging Data Radiologic Study: Attestation: I personally reviewed and interpreted this imaging study as follows: Imaging: X-Ray Radiologist's impression: Exam(s) XR PORTABLE CHEST AP EXAM: XR PORTABLE CHEST AP CLINICAL HISTORY: cough. TECHNIQUE: 2D digital imaging was performed. COMPARISON: CR CHEST 2 VIEWS PA,LAT from 08/09/2017 FINDINGS: Heart size is upper normal. The mediastinum is not widened. Lungs are clear. No infiltrates nor obvious pleural effusions. IMPRESSION: No acute pulmonary findings on this single AP portable view of the chest. Lab Data Lab results reviewed: Yes I reviewed the patient's lab results. Labs: 05/28/21 08:35 Nasopharynx Influenza Types A,B Antigen - Final Laboratory Tests Range/Units 05/28/21 05/28/21 05/28/21 08:35 08:35 08:35 WBC (4.4-10.8) 10^3/uL 6.52 RBC (3.93-5.22) 10^6/uL 4.79 Hgb (11.2-15.7) g/dL 14.7 Hct (36.0-46.0) % 44.1 MCV (80-95) fL 92.1 MCH (27.0-33.0) pg 30.7 MCHC (32.0-36.0) % 33.3 RDW (11.7-14.6) % 13.7 Plt Count (130-400) 10^3/uL 277 MPV (8.0-11.0) fL 10.4 Immature Gran % 0.2 Neutrophils % 59.3 Lymphocytes % 29.8 Monocytes % 6.7 Eosinophils % 2.8 Basophils % 1.2 Nucleated RBC % % 0 Absolute Neutrophils (1.2-6.7) 10^3/uL 3.87 Absolute Lymphocytes (1.2-3.4) 10^3/uL 1.94 Absolute Monocytes (0.1-0.8) 10^3/uL 0.44 Absolute Eosinophils (0.0-0.7) 10^3/uL 0.18 Absolute Basophils (0.0-0.2) 10^3/uL 0.08 Sodium (136-145) mmol/L 143 Potassium (3.5-5.1) mmol/L 3.9 Chloride (98-107) mmol/L 106 Carbon Dioxide (21.0-32.0) mmol/L 29.8 Anion Gap (3-11) mmol/L 7.2 BUN (7-18) mg/dL 13 Creatinine (0.55-1.02) mg/dL 1.1 H Estimated GFR/1.73 m2 (mL/min/1.73m2) 55.89 Glucose (74-106) mg/dL 106 Calcium (8.5-10.1) mg/dL 8.9 Total Bilirubin (0.2-1.0) mg/dL 0.3 AST (15-37) U/L 16 ALT (14-59) U/L 43 Alkaline Phosphatase (46-116) U/L 145 H Troponin I (<0.06) ng/mL Total Protein (6.4-8.2) g/dL 7.7 Albumin (3.4-5.0) g/dL 3.5 Lipase (73-393) U/L 64 Urine Color (Yellow) Urine Clarity (Clear) Urine pH (5-8) Ur Specific Dudley (1.005-1.025) Urine Protein (Negative) mg/dL Urine Ketones (Negative) mg/dL Urine Blood (Negative) Urine Nitrite (Negative) Urine Bilirubin (Negative) Urine Urobilinogen (Up TO 0.2) EU/dL Ur Leukocyte Esterase (Negative) Urine RBC (0-2) HPF Urine WBC (0-5) HPF Ur Epithelial Cells (Negative) HPF Urine Crystals (Negative) HPF Urine Bacteria (Negative) HPF Urine Casts (Negative) LPF Urine Mucus (Negative) Ur Culture Indicated? Urine Glucose (Negative) mg/dL COVID-19 Source NASOPHARYX SARS-CoV-2 (PCR) (Negative) Negative Range/Units 05/28/21 05/28/21 08:35 09:32 WBC (4.4-10.8) 10^3/uL RBC (3.93-5.22) 10^6/uL Hgb (11.2-15.7) g/dL Hct (36.0-46.0) % MCV (80-95) fL MCH (27.0-33.0) pg MCHC (32.0-36.0) % RDW (11.7-14.6) % Plt Count (130-400) 10^3/uL MPV (8.0-11.0) fL Immature Gran % Neutrophils % Lymphocytes % Monocytes % Eosinophils % Basophils % Nucleated RBC % % Absolute Neutrophils (1.2-6.7) 10^3/uL Absolute Lymphocytes (1.2-3.4) 10^3/uL Absolute Monocytes (0.1-0.8) 10^3/uL Absolute Eosinophils (0.0-0.7) 10^3/uL Absolute Basophils (0.0-0.2) 10^3/uL Sodium (136-145) mmol/L Potassium (3.5-5.1) mmol/L Chloride (98-107) mmol/L Carbon Dioxide (21.0-32.0) mmol/L Anion Gap (3-11) mmol/L BUN (7-18) mg/dL Creatinine (0.55-1.02) mg/dL Estimated GFR/1.73 m2 (mL/min/1.73m2) Glucose (74-106) mg/dL Calcium (8.5-10.1) mg/dL Total Bilirubin (0.2-1.0) mg/dL AST (15-37) U/L ALT (14-59) U/L Alkaline Phosphatase (46-116) U/L Troponin I (<0.06) ng/mL < 0.05 Total Protein (6.4-8.2) g/dL Albumin (3.4-5.0) g/dL Lipase (73-393) U/L Urine Color (Yellow) Yellow Urine Clarity (Clear) Sl Cloudy Urine pH (5-8) 5.5 Ur Specific Dudley (1.005-1.025) >= 1.030 H Urine Protein (Negative) mg/dL 30 H Urine Ketones (Negative) mg/dL Negative Urine Blood (Negative) Negative Urine Nitrite (Negative) Negative Urine Bilirubin (Negative) Small H Urine Urobilinogen (Up TO 0.2) EU/dL 0.2 Ur Leukocyte Esterase (Negative) Negative Urine RBC (0-2) HPF 0-2 Urine WBC (0-5) HPF 0-2 Ur Epithelial Cells (Negative) HPF Many Urine Crystals (Negative) HPF Negative Urine Bacteria (Negative) HPF Few Urine Casts (Negative) LPF Negative Urine Mucus (Negative) Moderate Ur Culture Indicated? No/Sq. Contamination Urine Glucose (Negative) mg/dL Negative COVID-19 Source SARS-CoV-2 (PCR) (Negative) ECG Data Attestation: I personally reviewed and interpreted this ECG (s) as follows: Interpretation: Please see official report by Dr. Doyle. Sinus rhythm, ventricular rate of 68, no STEMI. HPI General Mode of arrival: ambulatory. Date/Time Provider Initiated Documentation: 05/28/21 08:10. Limitations to Documentation: no limitations. Information obtained by: patient. HPI Narrative: This is a 36-year-old female, past medical history of anxiety, bipolar, obesity, colitis, depression, GERD, migraines, presents to the ER with multiple complaints including nausea, vomiting, diarrhea, body aches, headache which feels like her typical headache, dry cough, shortness of breath made worse with coughing or vomiting, chest pain and pressure when coughing, and generalized weakness. She does state that her significant other has similar symptoms at home. She reports decreased p.o. intake over the past couple of days, did try vsyl-tzt-ftzltss medication yesterday with little relief. She denies recent trauma. No other illness. She states that she is vaccinated against Covid. Denies visual changes, back pain, sore throat, black tarry stools, bright red blood in her stools, dysuria, hematuria, skin rash. Related Data Home Medications Medication Instructions Recorded Confirmed ropinirole 2 mg PO HS 06/08/15 05/28/21 venlafaxine 300 mg PO DAILY 12/17/16 05/28/21 acetaminophen [Tylenol] 650 mg PO PRN PRN 04/16/17 05/28/21 gabapentin 800 mg PO .QHS 05/21/20 05/28/21 magnesium oxide 400 mg PO HS 05/21/20 04/18/21 metoclopramide HCl 10 mg PO DIRECTED PRN 05/21/20 04/18/21 ondansetron HCl [Zofran] 4 mg PO Q8H PRN #10 tab 06/01/20 04/18/21 pantoprazole 40 mg PO HS 11/24/20 05/28/21 dicyclomine 20 mg PO TID #10 tab 03/06/21 04/18/21 promethazine 25 mg OH Q6H PRN #10 ea 03/06/21 05/28/21 doxycycline hyclate 100 mg capsule 100 mg PO BID #14 cap 04/11/21 04/16/21 ondansetron HCl [Zofran] 4 mg PO Q8H PRN #10 tab 05/28/21 Previous Rx's Medication Instructions Recorded ondansetron HCl [Zofran] 4 mg PO Q8H PRN #10 tab 06/01/20 dicyclomine 20 mg PO TID #10 tab 03/06/21 promethazine 25 mg OH Q6H PRN #10 ea 03/06/21 doxycycline hyclate 100 mg capsule 100 mg PO BID #14 cap 04/11/21 ondansetron HCl [Zofran] 4 mg PO Q8H PRN #10 tab 05/28/21 Allergies Allergy/AdvReac Type Severity Reaction Status Date / Time Penicillins Allergy Severe Swelling Verified 05/28/21 08:25 in throat granda flavor Allergy Intermediate throat Verified 05/28/21 08:25 bleeds,swelling kiwi Allergy Intermediate throat Verified 05/28/21 08:25 swells latex Allergy Mild rash,swelli Verified 05/28/21 08:25 ng aspirin AdvReac Intermediate stomach Verified 05/28/21 08:25 pain naproxen AdvReac Intermediate Nausea Verified 05/28/21 08:25 sumatriptan [From Imitrex] AdvReac Mild Headache Verified 05/28/21 08:25 wool Allergy Mild Skin Rash Uncoded 05/28/21 08:25 General Stated Complaint: Nausea/Vomit/Diar IVAN: 3 Review of Systems Constitutional Constitutional: Reports fatigue, Denies fever(s), Reports headache(s) and Reports weakness (Generalized) Eyes Eyes: Denies change in vision ENT Ears, Nose, Mouth, and Throat: Reports headache(s) and Denies sore throat Cardiovascular Cardiovascular: Reports chest pain and Reports dyspnea Respiratory Respiratory: Reports cough and Reports dyspnea Gastrointestinal Gastrointestinal: Reports abdominal pain, Reports diarrhea, Reports nausea and Reports vomiting Genitourinary Genitourinary: Denies dysuria Musculoskeletal Musculoskeletal: Reports myalgias Integumentary/Breasts Skin/Breast: Denies rash Neurologic Neurologic: Reports headache(s) and Reports weakness (Generalized) Endocrine Endocrine: Reports fatigue PFSH Medical History Abdominal pain Abscess, groin Anxiety Bipolar disorder BMI 35.0-35.9,adult Cholecystitis Colitis Depression Diarrhea Dizzy spells Elevated liver function tests GERD (gastroesophageal reflux disease) History of cannabis abuse History of tobacco abuse Migraine Nausea and vomiting Obesity Pelvic pain in female Restless leg syndrome Right ovarian cyst Umbilical hernia Ventral hernia Surgical History Diagnostic Laproscopy 2002 Weeks Hosp. bilateral ovarian cystectomies 11/2009. Diagnostic laparoscopy for chronic RLQ pain after LAVH in 2009. EGD - MAC (12/16/16) H/O: hysterectomy History of umbilical hernia repair (~09/13/19) Hysterectomy, Laproscopic (~11/2009) LAVH, ovarian conservation for dysmenorrhea Oophrectomy, Right (06/09/15) Laparoscopic RSO with L salpingectomy for R sided pelvic pain. R corpus luteum cyst. no pathology. R wrist cyst removal 10/2002 S/P laparoscopic cholecystectomy (~11/25/20) Tooth extraction 07/2014 wisdom teeth extraction Social History Smoking/Tobacco Use Status: Current every day Tobacco Type: cigarettes Tobacco: How many years used: 13 Smoking risk assessment performed?: Yes Alcohol Intake: current Alcohol Intake frequency: holidays/special occasions only Alcohol type: beer, wine and hard liquor Drug use: Current Sobriety Substance use type: marijuana Current gender identity: female Do you feel safe at home: Yes Do you feel safe in your relationship?: Yes Exam Const General: cooperative, healthy appearing, comfortable and no acute distress Orientation: alert, awake and oriented x3 HENMT Head: normal to inspection, normocephalic and atraumatic Ears: external ears normal, TM's normal bilaterally and EAC's normal General nose exam: external nose normal Face and sinus: normal facial exam Mouth: moist mucous membranes abnormal (Slightly dry) Throat: posterior oropharynx normal Eyes General: appearance normal, both eyes and all related structures Conjunctivae: conjunctivae normal Neck Neck: normal visual inspection, full ROM, no lymphadenopathy, no meningeal signs, trachea midline, supple and nontender Chest Chest: normal inspection of the chest and tenderness (Diffuse, mild, anterior) Resp Effort & Inspection: normal respiratory effort, able to speak in complete sentences and cough Quality of cough: dry (Mild) Auscultation: clear to auscultation bilaterally Cardio Rate: regular rate Rhythm: regular rhythm GI Inspection: normal to inspection Palpation: soft, not firm, no guarding, no pulsatile masses and tender (Diffuse, mild) with no rebound tenderness Auscultation: normal bowel sounds Back/Spine/Pelvis Back: No back tenderness Skin General skin exam: no rashes or lesions noted Neuro General: patient alert, patient awake, moves all extremities and no focal motor deficits Cognition: normal cognition Speech: speech normal Gait: normal gait Motor: muscle tone normal throughout Sensory Exam: no sensory deficits noted Extrem General: normal to inspection, full ROM, capillary refill normal, no pedal edema and no calf tenderness Psych Appearance: grossly normal Mental Status: mental status grossly normal Course Vital Signs Vital signs: Vital Signs Temperature 36.1 C L 05/28/21 08:18 Pulse 87 05/28/21 08:18 Respiratory Rate 18 05/28/21 08:18 Blood Pressure 148/101 H 05/28/21 08:18 Pulse Oximetry 97 05/28/21 08:18 Temperature 36.1 C L 05/28/21 08:18 Temperature Source Temporal Artery Scan 05/28/21 08:18 Pulse 87 05/28/21 08:18 Respiratory Rate 18 05/28/21 08:18 Respiratory Effort 05/28/21 08:27 Blood Pressure 148/101 H 05/28/21 08:18 Pulse Oximetry 97 05/28/21 08:18
[2021-05-28 08:59] LABS: Abs Immature Grans 0.01 10^3/uL (0.0-0.06); Absolute Basophil Count 0.08 10^3/uL (0.0-0.2); Absolute Eosinophil Count 0.18 10^3/uL (0.0-0.7); Absolute Lymphocyte Count 1.94 10^3/uL (1.2-3.4); Absolute Monocyte Count 0.44 10^3/uL (0.1-0.8); Absolute Neutrophil Count 3.87 10^3/uL (1.2-6.7); Basophils % 1.2; Eosinophils % 2.8; HCT 44.1 % (36.0-46.0); HGB 14.7 g/dL (11.2-15.7); Immature Grans % 0.2; Lymphocytes % 29.8; MCH 30.7 pg (27.0-33.0); MCHC 33.3 % (32.0-36.0); MCV 92.1 fL (80-95); MPV 10.4 fL (8.0-11.0); Monocytes % 6.7; Neutrophils % 59.3; Nucleated RBC 0 %; Platelet Count 277 10^3/uL (130-400); RBC 4.79 10^6/uL (3.93-5.22); RDW 13.7 % (11.7-14.6); RDW-SD 46.9 fL; WBC 6.52 10^3/uL (4.4-10.8)
--- NOTE | 2021-05-28 09:00 | DI.RAD_ITS ---
Exam(s) XR PORTABLE CHEST AP EXAM: XR PORTABLE CHEST AP CLINICAL HISTORY: cough. TECHNIQUE: 2D digital imaging was performed. COMPARISON: CR CHEST 2 VIEWS PA,LAT from 08/09/2017 FINDINGS: Heart size is upper normal. The mediastinum is not widened. Lungs are clear. No infiltrates nor obvious pleural effusions. IMPRESSION: No acute pulmonary findings on this single AP portable view of the chest. DATA REPOSITORY: RADIATION DOSE DELIVERED: All CT scans at this facility use at least one of these dose optimization techniques: automated exposure control; mA and/or kV adjustment per patient size (includes targeted e xams where dose is matched to clinical indication); or iterative reconstruction.
[2021-05-28 09:13] LABS: ALT 43 U/L (14-59); AST 16 U/L (15-37); Albumin 3.5 g/dL (3.4-5.0); Alkaline Phosphatase 145 U/L (46-116); Anion Gap 7.2 mmol/L (3-11); BUN 13 mg/dL (7-18); Bilirubin, Total 0.3 mg/dL (0.2-1.0); CO2 29.8 mmol/L (21.0-32.0); CREATININE 1.1 mg/dL (0.55-1.02); Calcium 8.9 mg/dL (8.5-10.1); Chloride 106 mmol/L (98-107); Estimated GFR 55.89 (mL/min/1.73m2); Glucose 106 mg/dL (74-106); Lipase 64 U/L (73-393); Potassium 3.9 mmol/L (3.5-5.1); Sodium 143 mmol/L (136-145); Total Protein 7.7 g/dL (6.4-8.2)
[2021-05-28] MEDS: Normal Saline 1,000 ML 1000 ML IV (09:35)
[2021-05-28] MEDS: Prochlorperazine 10 MG/2 ML VIAL IVP (09:36)
[2021-05-28] MEDS: diphenhydrAMINE 50 MG/ML VIAL IVP (09:36)
[2021-05-28] MEDS: Ketorolac 30 MG/ML VIAL IVP (09:37)
[2021-05-28] MEDS: ACETAMINOPHEN 1,000 MG/100 ML BTL 400 MG IVPB (09:37)
[2021-05-28 09:44] LABS: Troponin I < 0.05 ng/mL (<0.06)
[2021-05-28 09:44] LABS: Bilirubin Small (Negative); Blood Negative (Negative); Clarity Sl Cloudy (Clear); Glucose Negative (Negative); Ketones Negative (Negative); Leukocyte Esterase Negative (Negative); Nitrite Negative (Negative); Specific Gravity >= 1.030 (1.005-1.025); Urobilinogen 0.2 EU/dL (Up TO 0.2); pH 5.5 (5-8)
[2021-05-28 09:53] LABS: Bacteria Few HPF (Negative); C & S Indicated? No/Sq. Contamination; Casts Negative LPF (Negative); Crystals Negative HPF (Negative); Epithelial Cells Many HPF (Negative); Mucus Moderate (Negative); RBC 0-2 HPF (0-2); WBC 0-2 HPF (0-5)
[2021-05-28] MEDS: Normal Saline 50 ML (09:58)
[2021-05-28 10:16] LABS: COVID-19 PCR Negative (Negative)
== END 2021-05-28 11:38 | disposition home or self-care (01) ==
PROVIDERS: Emergency Provider Physician Assistant; PCP Physician Assistant Medical
DX: R11.2 Nausea with vomiting, unspecified (principal); R19.7 Diarrhea, unspecified; R51.9 Headache, unspecified; R07.89 Other chest pain; R05.1 Acute cough; R06.02 Shortness of breath; Z20.822 Contact with and (suspected) exposure to COVID-19; Z03.818 Encounter for observation for suspected exposure to other biological agents ruled out
CPT/HCPCS: 36415; 80053; 81025; 83690; 87449; 87635; 93005; 96361; 96374; 96375; 99285; 71045; 81003; 81015; 84484; 85025; 93010; J0131; J0780; J1200; J1885

== ENCOUNTER 2021-06-18 15:14 | Emergency (ER) | payer MEDICAID, SELFPAY ==
[2021-06-18 15:22] VITALS: BP 152/112; PULSE 121; RESP 18; TEMP 36.4; O2SAT 99
--- NOTE | 2021-06-18 15:30 | ED.GENADUL_ITS ---
Discharge Plan Disposition Patient Disposition: HOME Condition: Improving Discharge Details Clinical Impression: Nausea and vomiting, Abdominal pain Primary Care Provider: German Campa ED Provider: Miranda Pham Home Meds and New Rx's Prescriptions: New metoclopramide HCl [Reglan] 10 mg tablet 10 mg PO TID PRN (Reason: nausea and vomiting) Qty: 14 RF: 0 Continued ropinirole 1 MG tablet 2 mg PO HS RF: 0 magnesium oxide 400 mg (241.3 mg magnesium) tablet 400 mg PO HS RF: 0 venlafaxine 150 MG capsule,extended release 24hr 300 mg PO DAILY RF: 0 acetaminophen [Tylenol] 325 MG tablet 650 mg PO PRN PRNRF: 0 pantoprazole 40 mg tablet,delayed release (DR/EC) 40 mg PO HS RF: 0 No Action metoclopramide HCl 10 mg tablet 10 mg PO DIRECTED PRNRF: 0 gabapentin 300 MG capsule 800 mg PO .QHS RF: 0 promethazine 25 mg suppository 25 mg MS Q6H PRNQty: 10 RF: 0 ondansetron HCl [Zofran] 4 mg tablet 4 mg PO Q8H PRNQty: 10 RF: 0 Discharge Instructions Instructions: Acute Nausea and Vomiting (ED), Abdominal Pain (ED) Additional Instructions: Follow up with primary care provider in 3-5 days. Return to ED sooner if any worsening or concerns. Increase oral fluids. Small frequent sips of fluid. Small frequent meals. Referrals: German Campa PA [Primary Care Provider] - 3 days Discharge Data Discharge Date/Time-TO BE ENTERED AT DEPARTURE: 06/18/21 19:47 Medical Decision Making <RADHA Johnson - Last Filed: 06/20/21 06:40> Patient is a 36-year-old female, well-known to myself and the department, presenting today with c/c of abdominal pain. She has been here several times for abdominal pain historically. Accompanied by . She states that N/V began 4 days ago, abdominal pain started 2 days ago. States that pain has persisted and has been diffuse about the abdomen. Currently nauseated. No fevers/chills. Past surgical history is pertinent for cholecystitis, hysterectomy. Normal bowel movement today. No blood in her stool. No vaginal discharge. States that she has had diminished urinary output secondary to poor p.o. intake but no dysuria, increased frequency or urgency. No flank pain. Past medical history pertinent for groin abscess, bipolar, cholecystitis, GERD, history of cannabis abuse, obesity, ventral hernia. On exam, patient appears nontoxic, very anxious. She is tachycardic with a heart rate of 120. Patient is hypertensive. Afebrile. Normal oxygen. Lungs are clear. Patient is diffusely tender in the abdomen, no peritoneal findings. Patient reports that she does smoke marijuana daily. The recurrence of this symptom, as well as has diffuse the pain is, primarily radiating from the umbilical region, has been concerned for potential cannabinoid induced hyperemesis. Will apply capsaicin cream. Patient received Zofran initially with no improvement of her symptoms. She has responded well to Phenergan. Plan for IV hydration. At the end of my shift patient was transitioned to Bhumi Kirk NP. <Miranda Pham - Last Filed: 06/18/21 22:06> Care assumed from provider (RADHA Kendall) Please see their initial HPI, PE, and documentation. Discussed patient details and case and pending workup and disposition. Patient is hemodynamically stable, and alert and oriented. 1710: Informed by staff respiratory therapist that patient is still complaining of nausea and states that the capsaicin cream and Phenergan did not help. At this time we are waiting for CBC and urinalysis, patient is receiving a liter of LR, and has also received Zofran 4mg IV. Instructed staff respiratory therapist to revitalize patient. BP is improved from 132/102 pulse is 85 respiration 16 temperature 37.2 O2 sat 98% room air. CBC is pending at this time, CMP shows sodium 140 potassium 3.6 anion gap 12.8, BUN 15, creatinine 1.2 GFR 50.55, glucose 112 magnesium 1.9, alk phos 159, lipase 61. At this time patient is complaining of LLQ and RLQ abdominal pain, Abdomen is soft, call made to Lab to inquire on CBC. On record review patient does have history of cholecystectomy and some bowel thickening suggesting colitis. Other surgical history includes hysterectomy, oophorectomy on the right, umbilical hernia repair. Will order CT abd/Pelvis to rule out appendicitis or worsening colitis Upon further review of records patient has had 10 CTs in the last 3 years last one was in February. CT canceled and abdomen x-ray ordered to rule out free air versus constipation. X-ray abdomen flat and upright: Lungs: Normal. No consolidation. Pleural spaces: Normal. No pleural effusions. No pneumothorax. Heart/Mediastinum: Normal. No cardiomegaly. Gastrointestinal tract: Normal. No bowel dilation. Intraperitoneal space: Normal. No free air. Organs: There has been a cholecystectomy. Bones/joints: Normal. No acute fracture. Soft tissues: Normal. IMPRESSION: No acute findings. Patient reports that she is out of her nausea medications. Plan is to discharge patient home with antiemetic and follow-up with PCP. Discussed return instructions, verbalized understanding at this time there is no evidence for infectious process white blood cell count mildly elevated 11.8, hemoglobin 16.5 hematocrit 49.9, urinalysis shows dehydration greater than 160 ketones moderate bilirubin. Squamous contaminated at this time culture is not indicated. Patient has received 2 L of fluid IV here in department, was discharged with prescription for Reglan instructed to follow-up. This text was generated using [email or web address] system, please disregard any oddities of phrase or misspellings. HPI <RADHA Johnson - Last Filed: 06/20/21 06:40> General Mode of arrival: ambulatory . Date/Time Provider Initiated Documentation: 06/18/21 15:28 . Limitations to Documentation: no limitations . Information obtained by: patient, family, RN notes reviewed and old records reviewed . History of Present Illness 36 year old F presents to the emergency department with the chief complaint of diffuse abdominal pain, described as severe and similar to prior episodes, with intensity rated at 10. Quality is described as stabbing, and is localized to the abdomen. Patient reports no radiation. Patient started experiencing this day(s) (4) and it has been constant. No relieving factors improve symptom(s), No exacerbating factors reported . Patient notes loss of appetite, malaise and nausea/vomiting; denies chest pain, diaphoresis, fever/chills, headaches, rash and shortness of breath. Patient did receive the following treatments prior to arrival, none Related Data Home Medications Medication Instructions Recorded Confirmed ropinirole 2 mg PO HS 06/08/15 06/18/21 venlafaxine 300 mg PO DAILY 12/17/16 06/18/21 acetaminophen [Tylenol] 650 mg PO PRN PRN 04/16/17 06/18/21 gabapentin 800 mg PO .QHS 05/21/20 06/18/21 magnesium oxide 400 mg PO HS 05/21/20 06/18/21 metoclopramide HCl 10 mg PO DIRECTED PRN 05/21/20 06/18/21 pantoprazole 40 mg PO HS 11/24/20 06/18/21 promethazine 25 mg MS Q6H PRN #10 ea 03/06/21 06/18/21 ondansetron HCl [Zofran] 4 mg PO Q8H PRN #10 tab 05/28/21 06/18/21 metoclopramide HCl [Reglan] 10 mg PO TID PRN #14 tab 06/18/21 Previous Rx's Medication Instructions Recorded promethazine 25 mg MS Q6H PRN #10 ea 03/06/21 ondansetron HCl [Zofran] 4 mg PO Q8H PRN #10 tab 05/28/21 metoclopramide HCl [Reglan] 10 mg PO TID PRN #14 tab 06/18/21 Allergies Allergy/AdvReac Type Severity Reaction Status Date / Time Penicillins Allergy Severe Swelling Verified 06/18/21 18:18 in throat granda flavor Allergy Intermediate throat Verified 06/18/21 18:18 bleeds,swelling kiwi Allergy Intermediate throat Verified 06/18/21 18:18 swells latex Allergy Mild rash,swelli Verified 06/18/21 18:18 ng aspirin AdvReac Intermediate stomach Verified 06/18/21 18:18 pain naproxen AdvReac Intermediate Nausea Verified 06/18/21 18:18 sumatriptan [From Imitrex] AdvReac Mild Headache Verified 06/18/21 18:18 wool Allergy Mild Skin Rash Uncoded 06/18/21 18:18 General Stated Complaint: Abd Prob IVAN: 2 Review of Systems <RADHA Johnson - Last Filed: 06/20/21 06:40> Constitutional Constitutional: Reports as per HPI, Denies chills, Denies fever(s) and Denies headache(s) ENT Ears, Nose, Mouth, and Throat: Denies headache(s) Cardiovascular Cardiovascular: Reports as per HPI, Denies chest pain and Denies dyspnea Respiratory Respiratory: Reports as per HPI, Denies cough and Denies dyspnea Gastrointestinal Gastrointestinal: Reports as per HPI Musculoskeletal Musculoskeletal: Reports as per HPI and Denies back pain Integumentary/Breasts Skin/Breast: Reports as per HPI and Denies rash Neurologic Neurologic: Reports as per HPI and Denies headache(s) PFSH <RADHA Johnson - Last Filed: 06/20/21 06:40> Medical History Abdominal pain Abscess, groin Anxiety Bipolar disorder BMI 35.0-35.9,adult Cholecystitis Colitis Depression Diarrhea Dizzy spells Elevated liver function tests GERD (gastroesophageal reflux disease) History of cannabis abuse History of tobacco abuse Migraine Nausea and vomiting Obesity Pelvic pain in female Restless leg syndrome Right ovarian cyst Umbilical hernia Ventral hernia Surgical History Diagnostic Laproscopy 2002 Weeks Hosp. bilateral ovarian cystectomies 11/2009. Diagnostic laparoscopy for chronic RLQ pain after LAVH in 2009. EGD - MAC (12/16/16) H/O: hysterectomy History of umbilical hernia repair (~09/13/19) Hysterectomy, Laproscopic (~11/2009) LAVH, ovarian conservation for dysmenorrhea Oophrectomy, Right (06/09/15) Laparoscopic RSO with L salpingectomy for R sided pelvic pain. R corpus luteum cyst. no pathology. R wrist cyst removal 10/2002 S/P laparoscopic cholecystectomy (~11/25/20) Tooth extraction 07/2014 wisdom teeth extraction Social History Smoking/Tobacco Use Status: Current every day Tobacco Type: cigarettes Tobacco: How many years used: 13 Smoking risk assessment performed?: Yes Alcohol Intake: current Alcohol Intake frequency: holidays/special occasions only Alcohol type: beer, wine and hard liquor Drug use: Daily Substance use type: marijuana Current gender identity: female Do you feel safe at home: Yes Do you feel safe in your relationship?: Yes Exam <RADHA Johnson - Last Filed: 06/20/21 06:40> Const General: cooperative, healthy appearing, comfortable, no acute distress, well developed and anxious Nutritional Appearance: well nourished and obese Orientation: alert and awake Resp Effort & Inspection: normal respiratory effort, able to speak in complete sentences and no respiratory distress Auscultation: clear to auscultation bilaterally, no rales, no rhonchi and no wheezes Cardio Rate: tachycardic Rhythm: regular rhythm Heart Sounds: S1 normal and S2 normal GI Inspection: normal to inspection and non-distended Palpation: soft, no hepatosplenomegaly, not firm, no guarding, no hepatosplenomegaly, no hernias, no masses and tender (diffusely tender, maximal around umbilicus) with no rebound tenderness Percussion: normal to percussion Auscultation: normal bowel sounds Back/Spine/Pelvis Back: no CVA tenderness Skin General skin exam: no rashes or lesions noted Trauma: no lacerations or abrasions Neuro General: patient alert and patient awake Cognition: normal cognition Speech: speech normal Gait: normal gait Psych Appearance: grossly normal and well kempt Mental Status: mental status grossly normal Speech and Movement: speech and movement normal Course <RADHA Johnson - Last Filed: 06/20/21 06:40> Vital Signs Vital signs: Vital Signs Temperature 36.4 C L 06/18/21 15:22 Pulse 121 H 06/18/21 15:22 Respiratory Rate 18 06/18/21 15:22 Blood Pressure 152/112 H 06/18/21 15:22 Pulse Oximetry 99 06/18/21 15:22 Temperature 36.4 C L 06/18/21 15:22 Temperature Source Skin 06/18/21 15:22 Pulse 121 H 06/18/21 15:22 Respiratory Rate 18 06/18/21 15:22 Blood Pressure 152/112 H 06/18/21 15:22 Blood Pressure Position Sitting 06/18/21 15:22 Pulse Oximetry 99 06/18/21 15:22 Oxygen Delivery Method Room Air 06/18/21 15:22 Oxygen Flow Rate 0 06/18/21 15:22 Pain Level 10 06/18/21 15:22 Sign Out <RADHA Johnson - Last Filed: 06/20/21 06:40> Sign Out Data: Sign Out Comment: Care transition to Bhumi Kirk NP with labs pending. Have held off on imaging and exam is non focal with no peritoneal findings. Concerned for possible cannabinoid induced hyperemesis. She has done well with Phenergan historically necessitating that IV now. Have applied topical capsaicin to help with discomfort. Patient will need reassessment after labs are completed, consider imaging as warranted Last updated by Adeline Kulkarni PA at 06/18/21 16:33
[2021-06-18] MEDS: Ondansetron 4 MG/2 ML VIAL IVP (15:35)
[2021-06-18] MEDS: Normal Saline 1,000 ML 1000 ML IV ×2 (15:35→17:25)
[2021-06-18 15:54] LABS: ALT 54 U/L (14-59); AST 27 U/L (15-37); Alkaline Phosphatase 159 U/L (46-116); Anion Gap 12.8 mmol/L (3-11); BUN 15 mg/dL (7-18); Bilirubin, Total 0.6 mg/dL (0.2-1.0); CO2 23.2 mmol/L (21.0-32.0); CREATININE 1.2 mg/dL (0.55-1.02); Calcium 9.3 mg/dL (8.5-10.1); Chloride 104 mmol/L (98-107); Estimated GFR 50.55 (mL/min/1.73m2); Glucose 112 mg/dL (74-106); Magnesium 1.9 mg/dL (1.8-2.4); Potassium 3.6 mmol/L (3.5-5.1); Sodium 140 mmol/L (136-145); Total Protein 8.7 g/dL (6.4-8.2)
[2021-06-18 16:19] LABS: Lipase 61 U/L (73-393)
[2021-06-18 17:11] VITALS: BP 132/102; PULSE 85; RESP 16; TEMP 37.2; O2SAT 98
[2021-06-18] MEDS: Metoclopramide 10 MG/2 ML VIAL IVP (17:27)
[2021-06-18 17:29] LABS: Abs Immature Grans 0.03 10^3/uL (0.0-0.06); Absolute Basophil Count 0.13 10^3/uL (0.0-0.2); Absolute Eosinophil Count 0.14 10^3/uL (0.0-0.7); Absolute Lymphocyte Count 3.66 10^3/uL (1.2-3.4); Absolute Monocyte Count 0.65 10^3/uL (0.1-0.8); Absolute Neutrophil Count 7.07 10^3/uL (1.2-6.7); Basophils % 1.1; Eosinophils % 1.2; HCT 49.9 % (36.0-46.0); HGB 16.5 g/dL (11.2-15.7); Immature Grans % 0.3; Lymphocytes % 31.3; MCH 30.2 pg (27.0-33.0); MCHC 33.1 % (32.0-36.0); MCV 91.2 fL (80-95); MPV 10.9 fL (8.0-11.0); Monocytes % 5.6; Neutrophils % 60.5; Nucleated RBC 0 %; Platelet Count 427 10^3/uL (130-400); RBC 5.47 10^6/uL (3.93-5.22); RDW 13.2 % (11.7-14.6); RDW-SD 44.5 fL; WBC 11.68 10^3/uL (4.4-10.8)
[2021-06-18 17:38] VITALS: BP 136/102
--- NOTE | 2021-06-18 17:45 | DI.RAD_ITS ---
Exam(s) XR ABD FLAT UPRIGHT PA CHEST EXAM: XR ABD FLAT UPRIGHT PA CHEST CLINICAL HISTORY: Abdominal Pain, Rule out Free air, Constipation TECHNIQUE: COMPARISON: CR XR PORTABLE CHEST AP from 05/28/2021 FINDINGS: PA view of the chest shows clear lungs and normal cardiac size. No free intraperitoneal air identifi ed beneath the diaphragm. The bowel gas pattern is within normal limits. There are vascular clips in the right upper quadrant consistent with prior cholecystectomy. No gross organomegaly. IMPRESSION: Unremarkable examination of the chest and abdomen. RADIATION DOSE DELIVERED: Total DLP
[2021-06-18 18:14] LABS: Bilirubin Moderate (Negative); Blood Negative (Negative); Clarity Sl Cloudy (Clear); Glucose Negative (Negative); Ketones >=160 mg/dL (Negative); Leukocyte Esterase Negative (Negative); Nitrite Negative (Negative); Specific Gravity >= 1.030 (1.005-1.025); pH 5.5 (5-8)
[2021-06-18 18:22] LABS: Bacteria Moderate HPF (Negative); C & S Indicated? No/Sq. Contamination; Casts Negative LPF (Negative); Crystals Negative HPF (Negative); Epithelial Cells Many HPF (Negative); Mucus Trace (Negative); RBC 0-2 HPF (0-2)
--- NOTE | 2021-06-18 18:57 | DI.VRAD_ITS ---
PROCEDURE INFORMATION: Exam: XR Complete Acute Abdomen Series Including Chest Exam date and time: 06/18/2021 5:51 PM Age: 36 years old Clinical indication: Other: Abdominal pain, rule out free air, constipation TECHNIQUE: Imaging protocol: XR complete acute abdomen series, including 2 or more views of the abdomen and a single view chest. COMPARISON: CR XR PORTABLE CHEST AP 05/28/2021 9:55 AM FINDINGS: Lungs: Normal. No consolidation. Pleural spaces: Normal. No pleural effusions. No pneumothorax. Heart/Mediastinum: Normal. No cardiomegaly. Gastrointestinal tract: Normal. No bowel dilation. Intraperitoneal space: Normal. No free air. Organs: There has been a cholecystectomy. Bones/joints: Normal. No acute fracture. Soft tissues: Normal. IMPRESSION: No acute findings. Dictated and Authenticated by: Holden Carcamo MD. Ordering:RINKU Jean MD
== END 2021-06-18 19:47 | disposition home or self-care (01) ==
PROVIDERS: Physician Assistant; Student in an Organized Health Care Education/Training Program; Emergency Provider Registered Nurse Emergency; PCP Physician Assistant Medical
DX: R11.2 Nausea with vomiting, unspecified (principal); R10.9 Unspecified abdominal pain
CPT/HCPCS: 80053; 83690; 99283; 74022; 81003; 81015; 83735; 85025; J2405; J2765

== ENCOUNTER 2021-08-03 12:26 | Emergency (ER) | payer MEDICAID, SELFPAY ==
[2021-08-03] VITALS (24 sets, daily range): BP systolic 124–144; BP diastolic 83–96; PULSE 53–92; RESP 9–24; TEMP 36.8; O2SAT 95–100
--- NOTE | 2021-08-03 12:15 | RT.EKG_ITS ---
APPROVED REPORT Exam: Resting ECG Reason for Exam: Seizure Patient Location: E HR:79 bpm ECG Measurements Heart Rate 79 AXIS FL 159 P 56 QRSd 92 QRS 20 QT 381 T 42 QTc 437 Conclusion Sinus rhythm...normal P axis, V-rate 60- 99. Sinus. No STEMI. I have reviewed and interpreted ECG and agree with software generated interpretation.
--- NOTE | 2021-08-03 13:35 | DI.CT_ITS ---
Exam(s) CT HEAD CERVICAL SPINE WO EXAM: CT HEAD CERVICAL SPINE WO CLINICAL HISTORY: Seziure with fall. TECHNIQUE: Imaging Protocol: Axial computed tomography images with coronal and sagittal reformatted images were created and reviewed COMPARISON: CT CT HEAD WO from 04/24/2019 FINDINGS: CT Head: Ventricles and Extra axial spaces: Normal in size and morphology for the patient's age. Hemorrhage: None. Cerebral parenchyma: Normal. Midline shift: None. Brainstem/Cerebellum: Normal. Calvarium: Normal. Visualized Paranasal sinuses/Mastoids: Clear. Soft Tissues: Unremarkable. CT Cervical Spine: Bones: No acute fracture or subluxation. Soft Tissues: Unremarkable. Thyroid gland: Unremarkable Lung Apices: Not visualized on this examination. IMPRESSION: 1. No acute intracranial process. 2. No acute fracture or subluxation in the cervical spine. 3. Results of this exam have been verbally communicated with provider. RADIATION DOSE DELIVERED: 1,180mGy.cm Total DLP DATA REPOSITORY: All CT scans at this facility are submitted to the National Radiology Data Registry (NRDR) Dose Index Registry (DIR) with the [employer] (ACR). RADIATION OPTIMIZATION: All CT scans at this facility use at least one of these dose optimization te chniques: automated exposure control; mA and/or kV adjustment per patient size (includes targeted exa ms where dose is matched to clinical indication); or iterative reconstruction.
[2021-08-03] MEDS: Normal Saline 1,000 ML 1000 ML IV (13:38)
[2021-08-03 13:41] LABS: Lactate 0.9 mmol/L (0.6-1.4)
[2021-08-03 13:43] LABS: Abs Immature Grans 0.03 10^3/uL (0.0-0.06); Absolute Eosinophil Count 0.09 10^3/uL (0.0-0.7); Absolute Lymphocyte Count 2.16 10^3/uL (1.2-3.4); Absolute Monocyte Count 0.55 10^3/uL (0.1-0.8); Absolute Neutrophil Count 7.67 10^3/uL (1.2-6.7); Basophils % 0.9; Eosinophils % 0.8; HCT 47.4 % (36.0-46.0); HGB 15.5 g/dL (11.2-15.7); Immature Grans % 0.3; Lymphocytes % 20.4; MCH 29.9 pg (27.0-33.0); MCHC 32.7 % (32.0-36.0); MCV 91.5 fL (80-95); MPV 10.3 fL (8.0-11.0); Monocytes % 5.2; Neutrophils % 72.4; Nucleated RBC 0 %; Platelet Count 282 10^3/uL (130-400); RBC 5.18 10^6/uL (3.93-5.22); RDW 13.9 % (11.7-14.6); RDW-SD 46.9 fL
--- NOTE | 2021-08-03 13:53 | ED.GENADUL_ITS ---
Discharge Plan Disposition Patient Disposition: HOME Condition: Stable Discharge Details Clinical Impression: Syncope due to orthostatic hypotension, Nausea vomiting and diarrhea, Concussion Primary Care Provider: German Campa ED Provider: Ismael Blackmon Home Meds and New Rx's Prescriptions: New metoclopramide HCl 10 mg tablet,disintegrating 10 mg PO Q6H PRN (Reason: nausea and vomiting) Qty: 20 RF: 0 Continued ropinirole 1 MG tablet 2 mg PO HS RF: 0 magnesium oxide 400 mg (241.3 mg magnesium) tablet 400 mg PO HS RF: 0 gabapentin 300 MG capsule 800 mg PO .QHS RF: 0 venlafaxine 150 MG capsule,extended release 24hr 300 mg PO DAILY RF: 0 acetaminophen [Tylenol] 325 MG tablet 650 mg PO PRN PRNRF: 0 pantoprazole 40 mg tablet,delayed release (DR/EC) 40 mg PO HS RF: 0 Discharge Instructions Instructions: Syncope (ED), Concussion (ED), Acute Nausea and Vomiting (ED) Additional Instructions: As discussed if you have any change in your symptoms return immediately to the emergency department for reevaluation. Otherwise take nausea medication as prescribed and drink clear fluids for the next 24 to 48 hours then slowly advance your diet as tolerated. Please perform physical and mental rest for the next 3 days and feel free to take [id number] pain medication and stay well-hydrated to help recover from your concussion. Please make sure that you change positions slowly before walking as this was a big contributor to your episode today. If this condition recurs please follow- up with your primary care provider or if you pass out again return to the emergency department. Given that you have viral type symptoms and COVID testing has been performed you will need to quarantine until these results are available. We will contact you with those results which are typically available in 24 to 48 hours. Stand Alone Forms: Work Release Referrals: German Campa PA [Primary Care Provider] - 3 days Medical Decision Making Patient presenting to the emergency department with chief complaint of syncope with seizure-like activity. Patient reports that she has had flulike symptoms over the past couple days with nausea vomiting and malaise and today when she stood up to go to the restroom she states her vision became tunnel like causing her to pass out. Reportedly by her son via EMS she had seizure-like activity last lasting 1 minute or less and then was dazed after the event. Patient reports headache, neck pain and generalized abdominal pain with nausea and vomiting. Patient denies any focal neurological deficits. Physical exam shows diffuse tenderness through the C-spine and abdomen otherwise benign exam. Patient resting calmly but hard to get focal exam due to her reported pain. Plan to perform advanced imaging of head and C-spine along with labs due to syncope/seizure-like activity. Given reported story this sounds like orthostatic hypotension with syncope review of previous records along with labs. Review of labs is unremarkable with normal lactate, normal bicarb, no alcohol since this and otherwise nondiagnostic. Reviewed CT imaging along with radiologist patient shows no acute findings on head and C-spine imaging. With review of previous records patient has had multiple and many visit for abdominal pain with nausea and vomiting and has had a hysterectomy, cholecystectomy, and umbilical hernia repair. Patient states that she has not had marijuana in the last month but previously there was concern for cannabinoid hyperemesis being potential cause of repeated belly pain with nausea vomiting. We will continue to monitor patient's condition but I do feel that labs are reassuring and at this time unsure if CT imaging of the belly is required given patient states viral illness symptoms for the last couple days so consideration of COVID is high on list I reassessed patient after fluids and patient will reports nausea and generalized discomfort but denies any worsening of symptoms. Reassessed abdomen and patient still has diffuse tenderness specifically able to now further evaluate right lower quadrant which patient states most mild area of tenderness is noted there. I feel this is reassuring and doubt any surgical abdominal findings given NABS, patient having a bowel movement in the emergency department, urinating fine, and no tenderness to right lower quadrant. Patient has already had a hysterectomy and a cholecystectomy. Given this, along with patient's history of multiple CT scans with similar presentation, I do feel that there is a radiologist risk for further radiation exposure versus benefit. Had thorough discussion with patient risk versus benefit given greater than 10 CT scans in the last 3 years. After this discussion along with shared decision making and reassessment of the abdomen we agreed upon the addition of lipase otherwise for patient to be prescribed antiemetic and p.o. challenge to monitor symptoms at home and then to return for any new or worsening symptoms. Patient is agreeable to this plan of care. Lipase was reviewed and is within normal limits. Patient was able to tolerate p.o. ice chips with no further episodes of emesis and also was able to ambulate again with no further syncope symptoms. I feel this is reassuring and that patient is safe for discharge. Reiterated with patient return and follow-up precautions especially for new or worsening symptoms or change in symptoms given that we did not perform advanced imaging. Also encourage patient to follow-up with primary care provider if she continues with dizzy episodes to discussed potential medication changes if this is more a side effect of her current meds. After discussion of diagnosis and plan of care patient has no further needs, questions, or concerns and states clear understanding to return to the emergency department for any worsening symptoms. ECG Data Interpretation: Reviewed with Dr. Lilly and shows sinus rhythm. Please see full EKG report for interpretation. HPI General Mode of arrival: EMS . Date/Time Provider Initiated Documentation: 08/03/21 12:41 . Limitations to Documentation: no limitations . Information obtained by: patient . History of Present Illness 36 year old F presents to the emergency department with the chief complaint of Syncope with possible Seizure, described as severe, with intensity rated at 10. Quality is described as aching and constant, and is localized to the head and neck. Patient reports no radiation. and it has been constant. No relieving factors improve symptom(s), Patient notes nausea/vomiting (that started 2 days ago). Patient did receive the following treatments prior to arrival, none Related Data Home Medications Medication Instructions Recorded Confirmed ropinirole 2 mg PO HS 06/08/15 08/03/21 venlafaxine 300 mg PO DAILY 12/17/16 08/03/21 acetaminophen [Tylenol] 650 mg PO PRN PRN 04/16/17 08/03/21 gabapentin 800 mg PO .QHS 05/21/20 08/03/21 magnesium oxide 400 mg PO HS 05/21/20 08/03/21 pantoprazole 40 mg PO HS 11/24/20 08/03/21 metoclopramide HCl 10 mg PO Q6H PRN #20 tab 08/03/21 Previous Rx's Medication Instructions Recorded metoclopramide HCl 10 mg PO Q6H PRN #20 tab 08/03/21 Allergies Allergy/AdvReac Type Severity Reaction Status Date / Time Penicillins Allergy Severe Swelling Verified 08/03/21 12:35 in throat granda flavor Allergy Intermediate throat Verified 08/03/21 12:35 bleeds,swelling kiwi Allergy Intermediate throat Verified 08/03/21 12:35 swells latex Allergy Mild rash,swelli Verified 08/03/21 12:35 ng aspirin AdvReac Intermediate stomach Verified 08/03/21 12:35 pain naproxen AdvReac Intermediate Nausea Verified 08/03/21 12:35 sumatriptan [From Imitrex] AdvReac Mild Headache Verified 08/03/21 12:35 wool Allergy Mild Skin Rash Uncoded 08/03/21 12:35 General Stated Complaint: Seizure IVAN: 3 Review of Systems Constitutional Constitutional: Denies chills, Reports fever(s) (subjective), Denies frequent falls, Reports headache(s) and Reports poor appetite ENT Ears, Nose, Mouth, and Throat: Reports dizziness, Reports headache(s), Reports neck pain and Denies disequilibrium Cardiovascular Cardiovascular: Denies chest pain and Denies dyspnea Respiratory Respiratory: Denies cough and Denies dyspnea Gastrointestinal Gastrointestinal: Reports as per HPI, Reports abdominal pain, Denies melena, Denies change in bowel habits, Denies constipation, Denies diarrhea, Reports nausea and Reports vomiting Genitourinary Genitourinary: Denies hematuria, Denies urinary incontinence, Denies urinary hesitancy and Denies urinary urgency Musculoskeletal Musculoskeletal: Reports as per HPI and Reports neck pain Integumentary/Breasts Skin/Breast: Denies rash Neurologic Neurologic: Reports as per HPI, Reports dizziness, Denies frequent falls, Reports headache(s), Denies other visual disturbances, Reports convulsions, Denies sensory deficit, Denies paresthesias and Denies disequilibrium PFSH All Active Problems (Updated 08/03/21 @ 16:34 by Ismael Blackmon NP) Nausea vomiting and diarrhea (Acute) Cephalgia (Acute) Syncope due to orthostatic hypotension (Acute) Concussion (Acute) Nausea and vomiting (Acute) Colitis (Acute) Abdominal pain (Acute) Medical History Abdominal pain Abscess, groin Anxiety Bipolar disorder BMI 35.0-35.9,adult Cholecystitis Colitis Depression Diarrhea Dizzy spells Elevated liver function tests GERD (gastroesophageal reflux disease) History of cannabis abuse History of tobacco abuse Migraine Nausea and vomiting Obesity Pelvic pain in female Restless leg syndrome Right ovarian cyst Umbilical hernia Ventral hernia Surgical History Diagnostic Laproscopy 2002 Weeks Hosp. bilateral ovarian cystectomies 11/2009. Diagnostic laparoscopy for chronic RLQ pain after LAVH in 2009. EGD - MAC (12/16/16) H/O: hysterectomy History of umbilical hernia repair (~09/13/19) Hysterectomy, Laproscopic (~11/2009) LAVH, ovarian conservation for dysmenorrhea Oophrectomy, Right (06/09/15) Laparoscopic RSO with L salpingectomy for R sided pelvic pain. R corpus luteum cyst. no pathology. R wrist cyst removal 10/2002 S/P laparoscopic cholecystectomy (~11/25/20) Tooth extraction 07/2014 wisdom teeth extraction Social History Smoking/Tobacco Use Status: Current every day Tobacco Type: cigarettes Tobacco: How many years used: 13 Smoking risk assessment performed?: Yes Alcohol Intake: current Alcohol Intake frequency: holidays/special occasions only Alcohol type: beer, wine and hard liquor Drug use: Occasionally Substance use type: marijuana Current gender identity: female Do you feel safe at home: Yes Do you feel safe in your relationship?: Yes Exam Const General: cooperative Orientation: alert, awake and oriented x3 Neck Neck: tender (difuse tenderness) and other (in C-collar) Resp Effort & Inspection: normal respiratory effort and able to speak in complete sentences Auscultation: clear to auscultation bilaterally Cardio Rate: regular rate Rhythm: regular rhythm Heart Sounds: S1 normal and S2 normal GI Palpation: soft, no hepatosplenomegaly, not firm, no guarding, no masses, no pul satile masses, not rigid, no splenomegaly and tender (difuse non-focal) Auscultation: normal bowel sounds Back/Spine/Pelvis Back: no CVA tenderness Neuro General: patient alert, patient awake, patient oriented x3, gait normal, moves all extremities, normal light touch, pain and propioception, not confused and not obtunded Cranial Nerves: PERRL, accommodation normal, facial strength normal, tongue midline, hearing normal and able to elevate shoulders bilaterally Cognition: normal cognition Speech: speech normal Motor: muscle tone normal throughout Sensory Exam: no sensory deficits noted Course Vital Signs Vital signs: Vital Signs Temperature 36.8 C 08/03/21 12:23 Pulse 71 08/03/21 12:23 Respiratory Rate 16 08/03/21 12:23 Blood Pressure 144/86 H 08/03/21 12:23 Pulse Oximetry 97 08/03/21 12:23 Temperature 36.8 C 08/03/21 12:23 Temperature Source Skin 08/03/21 12:23 Pulse 71 08/03/21 12:23 Respiratory Rate 16 08/03/21 12:23 Respiratory Effort Non-Labored 08/03/21 12:45 Respiratory Depth Normal 08/03/21 12:45 Respiratory Pattern Normal 08/03/21 12:45 Blood Pressure 144/86 H 08/03/21 12:23 Blood Pressure Position Supine 08/03/21 12:23 Pulse Oximetry 97 08/03/21 12:23 Oxygen Delivery Method Room Air 08/03/21 12:23 Oxygen Flow Rate 0 08/03/21 12:23 Pain Level 10 08/03/21 13:42 Lab/Test Results Lab/Test Results: Laboratory Tests Range/Units 08/03/21 08/03/21 13:35 13:35 WBC (4.4-10.8) 10^3/uL 10.60 RBC (3.93-5.22) 10^6/uL 5.18 Hgb (11.2-15.7) g/dL 15.5 Hct (36.0-46.0) % 47.4 H MCV (80-95) fL 91.5 MCH (27.0-33.0) pg 29.9 MCHC (32.0-36.0) % 32.7 RDW (11.7-14.6) % 13.9 Plt Count (130-400) 10^3/uL 282 MPV (8.0-11.0) fL 10.3 Immature Gran % 0.3 Neutrophils % 72.4 Lymphocytes % 20.4 Monocytes % 5.2 Eosinophils % 0.8 Basophils % 0.9 Nucleated RBC % % 0 Absolute Neutrophils (1.2-6.7) 10^3/uL 7.67 H Absolute Lymphocytes (1.2-3.4) 10^3/uL 2.16 Absolute Monocytes (0.1-0.8) 10^3/uL 0.55 Absolute Eosinophils (0.0-0.7) 10^3/uL 0.09 Absolute Basophils (0.0-0.2) 10^3/uL 0.10 VBG Lactate (0.6-1.4) mmol/L 0.9
[2021-08-03 13:56] LABS: ALT 39 U/L (14-59); AST 20 U/L (15-37); Albumin 3.7 g/dL (3.4-5.0); Alkaline Phosphatase 134 U/L (46-116); Anion Gap 9.8 mmol/L (3-11); BUN 14 mg/dL (7-18); Bilirubin, Total 0.4 mg/dL (0.2-1.0); CO2 26.2 mmol/L (21.0-32.0); Chloride 104 mmol/L (98-107); ETHANOL BLOOD < 3.0 mg/dL (<10); Glucose 87 mg/dL (74-106); Magnesium 2.1 mg/dL (1.8-2.4); Potassium 4.1 mmol/L (3.5-5.1); Sodium 140 mmol/L (136-145)
[2021-08-03 14:25] LABS: D-Dimer 330 ng/mlFEU (<500)
[2021-08-03 15:46] LABS: Lipase 42 U/L (73-393)
[2021-08-05 18:22] LABS: COVID-19 RT-PCR UVMMC Result Negative (Negative)
== END 2021-08-03 16:57 | disposition home or self-care (01) ==
PROVIDERS: Emergency Provider Nurse Practitioner Family; PCP Physician Assistant Medical
DX: I95.1 Orthostatic hypotension (principal); R11.2 Nausea with vomiting, unspecified; R19.7 Diarrhea, unspecified; S06.0X9A Concussion with loss of consciousness of unspecified duration, initial encounter; W18.39XA Other fall on same level, initial encounter; R56.9 Unspecified convulsions; Z20.822 Contact with and (suspected) exposure to COVID-19
CPT/HCPCS: 36416; 80053; 82962; 83690; 93005; 96361; 96374; 99284; U0003; 70450; 72125; 80320; 83605; 83735; 85025; 85379; 93010

== ENCOUNTER 2021-11-04 20:58 | Emergency (ER) | payer MEDICAID, SELFPAY ==
[2021-11-04] VITALS (18 sets, daily range): BP systolic 116–145; BP diastolic 75–104; PULSE 52–71; RESP 18; TEMP 36.6; O2SAT 91–99
[2021-11-04] MEDS: Normal Saline 1,000 ML 1000 ML IV (21:30)
--- NOTE | 2021-11-04 21:45 | ED.GENADUL_ITS ---
Discharge Plan Disposition Patient Disposition: HOME Condition: Stable Discharge Details Clinical Impression: Headache, Nausea and vomiting Primary Care Provider: German Campa ED Provider: Miranda Pham Home Meds and New Rx's Prescriptions: Continued ropinirole 1 MG tablet 2 mg PO HS 0RF magnesium oxide 400 mg (241.3 mg magnesium) tablet 400 mg PO HS 0RF Label Comments: TK 1 T PO D gabapentin 300 MG capsule 800 mg PO .QHS 0RF venlafaxine 150 MG capsule,extended release 24hr 300 mg PO DAILY 0RF acetaminophen [Tylenol] 325 MG tablet 650 mg PO PRN PRN0RF pantoprazole 40 mg tablet,delayed release (DR/EC) 40 mg PO HS 0RF Label Comments: TAKE 1 TABLET BY MOUTH EVERY DAY No Action metoclopramide HCl 10 mg tablet,disintegrating 10 mg PO Q6H PRN (Reason: nausea and vomiting) Qty: 20 0RF Discharge Instructions Instructions: Migraine Headache (ED), Acute Nausea and Vomiting (ED) Additional Instructions: You may take a Zofran in approximately 4 hours if recurrent nausea. Take approximately 20 to 30 minutes prior to meals up to 3 times daily as needed. Follow up with primary care provider in 3-5 days. Return to ED sooner if any worsening WILSON not relieved by medications, fever, chills, or concerns. Increase oral fluids. Please take Tylenol or Ibuprofen with food every 4-6 hours as needed for pain and swelling. Your potassium was slightly low please increase food intake with potassium such as bananas or spinach. Stand Alone Forms: Work Release Referrals: German Campa PA [Primary Care Provider] - 5 days Medical Decision Making 36-year-old female presents to the ER with chief complaint of headache which is generalized wraps around her head. She does report that she has a history of migraine headaches this does feel like a typical migraine. She reports it began this morning. Reports nausea vomiting all day today. She reports that she took Tylenol prior to arrival but she threw it up. She denies any recent trauma or head injuries. Denies any blurry vision or double vision. No fever no chest pain. She does state that she is sensitive to light and sound. Denies any associated symptoms. CBC, CMP, urinalysis ordered. 1 L normal saline, Compazine 5 mg 25 mg Benadryl. 2121:Will reevaluate after medication administration. If no improvement will consider head CT. Patient had a normal CT head and cervical spine in July of this year. CBC shows mild leukopenia white blood cell count of 3.15 unsure etiology, she has had this in the past. Sodium 139, potassium 3.4, anion gap 12.0, alk phos 124. 2221: Patient reevaluation, patient is sleeping, breathing even nonlabored Blood pressure is improved is 120/75. She reports improvement in WILSON and symptoms. Given Zofran 4 mg PO to go x3 and discussed and written instructions given for home care and follow up care. Verbalized understanding. This text was generated using [employer] dictation system, please disregard any oddities of phrase or misspellings. HPI General Mode of arrival: ambulatory . Date/Time Provider Initiated Documentation: 11/04/21 20:59 . Limitations to Documentation: no limitations . Information obtained by: patient, RN notes reviewed and old records reviewed . HPI Narrative: 36-year-old female presents to the ER with chief complaint of headache which is generalized wraps around her head. She does report that she has a history of migraine headaches this does feel like a typical migraine. She reports it began this morning. Reports nausea vomiting all day today. She reports that she took Tylenol prior to arrival but she threw it up. She denies any recent trauma or head injuries. Denies any blurry vision or double vision. No fever no chest pain. She does state that she is sensitive to light and sound. Denies any associated symptoms. Related Data Home Medications Medication Instructions Recorded Confirmed ropinirole 1 mg tablet 2 mg PO HS 06/08/15 11/04/21 venlafaxine 150 mg 300 mg PO DAILY 12/17/16 11/04/21 capsule,extended release 24 hr acetaminophen 325 mg tablet 650 mg PO PRN PRN 04/16/17 11/04/21 (Tylenol) gabapentin 300 mg capsule 800 mg PO .QHS 05/21/20 11/04/21 magnesium oxide 400 mg (241.3 mg 400 mg PO HS 05/21/20 11/04/21 magnesium) tablet pantoprazole 40 mg tablet,delayed 40 mg PO HS 11/24/20 11/04/21 release metoclopramide HCl 10 mg 10 mg PO Q6H PRN #20 tab 08/03/21 11/04/21 disintegrating tablet Previous Rx's Medication Instructions Recorded metoclopramide HCl 10 mg 10 mg PO Q6H PRN #20 tab 08/03/21 disintegrating tablet Allergies Allergy/AdvReac Type Severity Reaction Status Date / Time Penicillins Allergy Severe Swelling Verified 11/04/21 21:07 in throat granda flavor Allergy Intermediate throat Verified 11/04/21 21:07 bleeds,swelling kiwi Allergy Intermediate throat Verified 11/04/21 21:07 swells latex Allergy Mild rash,swelli Verified 11/04/21 21:07 ng aspirin AdvReac Intermediate stomach Verified 11/04/21 21:07 pain naproxen AdvReac Intermediate Nausea Verified 11/04/21 21:07 sumatriptan [From Imitrex] AdvReac Mild Headache Verified 11/04/21 21:07 wool Allergy Mild Skin Rash Uncoded 11/04/21 21:07 General Stated Complaint: Headache IVAN: 3 Review of Systems All systems reviewed & are unremarkable except as noted in HPI and below Constitutional Constitutional: Reports as per HPI, Denies fever(s) and Reports headache(s) ENT Ears, Nose, Mouth, and Throat: Reports headache(s) Gastrointestinal Gastrointestinal: Denies diarrhea, Reports nausea and Reports vomiting Genitourinary Genitourinary: Denies dysuria Neurologic Neurologic: Reports headache(s) PFSH All Active Problems (Updated 11/04/21 @ 22:25 by Miranda Pham) Nausea vomiting and diarrhea (Acute) Cephalgia (Acute) Headache (Acute) Nausea and vomiting (Acute) Colitis (Acute) Abdominal pain (Acute) Medical History Abscess, groin Anxiety Bipolar disorder BMI 35.0-35.9,adult Cholecystitis Depression Diarrhea Dizzy spells Elevated liver function tests GERD (gastroesophageal reflux disease) History of cannabis abuse History of tobacco abuse Migraine Obesity Pelvic pain in female Restless leg syndrome Right ovarian cyst Umbilical hernia Ventral hernia Surgical History Diagnostic Laproscopy 2003 Weeks Hosp. bilateral ovarian cystectomies 11/2009. Diagnostic laparoscopy for chronic RLQ pain after LAVH in 2009. EGD - MAC (12/16/16) H/O: hysterectomy History of umbilical hernia repair (~09/13/19) Hysterectomy, Laproscopic (~11/2009) LAVH, ovarian conservation for dysmenorrhea Oophrectomy, Right (06/09/15) Laparoscopic RSO with L salpingectomy for R sided pelvic pain. R corpus luteum cyst. no pathology. R wrist cyst removal 10/2002 S/P laparoscopic cholecystectomy (~11/25/20) Tooth extraction 07/2014 wisdom teeth extraction Social History Smoking/Tobacco Use Status: Current every day Tobacco Type: cigarettes Tobacco: How many years used: 13 Smoking risk assessment performed?: Yes Alcohol Intake: current Alcohol Intake frequency: holidays/special occasions only Alcohol type: beer, wine and hard liquor Drug use: Occasionally Substance use type: marijuana Current gender identity: female Do you feel safe at home: Yes Do you feel safe in your relationship?: Yes Exam Narrative Exam Narrative: Constitutional: Alert and oriented x3. Appears stated age. Normal body habitus. Head: Normocephalic, no trauma. Eyes: Pupils PERRL, Red reflex noted, EOM's intact. Eyelids symmetrical without lesions, discharge, or swelling. ENT: Bilateral TM's WNL, External ear normal to inspection, no mastoid TTP, swelling, or erythema, Nasal turbinates WNL, no nasal discharge. Normal dentition, Posterior pharynx WNL, no exudate. Chest: RRR, Normal S1, S2, distal pulses intact. Resp: Lungs clear to auscultation bilaterally, no wheezes, rales, or rhonchi. Abdomen: Soft, non-distended, Normoactive bowel sounds all 4 quads. Musculoskeletal: Normal gait, 5/5 strength to all four extremities. Skin: No suspicious rashes or lesions. Capillary refill less than 2 sec. Neurologic: Cranial nerves II-XII intact. Alert and oriented x 3. Motor: No deficits noted. Sensory: Intact bilaterally all 4 extremities. Reflexes: DTR's intact bilaterally.. No pronator drift intact dorsiflexion pedal flexion bilateral lower extremities. Hematologic/Lymphatic: No ecchymosis, no lymphadenopathy. Course Vital Signs Vital signs: Vital Signs Temperature 36.6 C 11/04/21 21:04 Pulse 71 11/04/21 21:04 Respiratory Rate 18 11/04/21 21:04 Blood Pressure 145/104 H 11/04/21 21:04 Pulse Oximetry 97 11/04/21 21:04 Temperature 36.6 C 11/04/21 21:04 Pulse 71 11/04/21 21:04 Respiratory Rate 18 11/04/21 21:04 Respiratory Effort Non-Labored 11/04/21 21:07 Blood Pressure 145/104 H 11/04/21 21:04 Pulse Oximetry 97 11/04/21 21:04 Oxygen Delivery Method Room Air 11/04/21 21:04 Oxygen Flow Rate 0 11/04/21 21:04 Pain Level 10 11/04/21 21:07
[2021-11-04] MEDS: diphenhydrAMINE 50 MG/ML VIAL 25 MG IVP (21:53)
[2021-11-04] MEDS: Prochlorperazine 10 MG/2 ML VIAL 5 MG IVP (21:53)
[2021-11-04 21:54] LABS: Abs Immature Grans 0.01 10^3/uL (0.0-0.06); Absolute Basophil Count 0.05 10^3/uL (0.0-0.2); Absolute Eosinophil Count 0.03 10^3/uL (0.0-0.7); Absolute Lymphocyte Count 0.92 10^3/uL (1.2-3.4); Absolute Monocyte Count 0.44 10^3/uL (0.1-0.8); Basophils % 1.6; HCT 45.2 % (36.0-46.0); HGB 14.6 g/dL (11.2-15.7); Immature Grans % 0.3; Lymphocytes % 29.2; MCH 29.4 pg (27.0-33.0); MCHC 32.3 % (32.0-36.0); MCV 91.1 fL (80-95); MPV 11.6 fL (8.0-11.0); Neutrophils % 53.9; Nucleated RBC 0 %; Platelet Count 199 10^3/uL (130-400); RBC 4.96 10^6/uL (3.93-5.22); RDW 13.3 % (11.7-14.6); RDW-SD 44.9 fL; WBC 3.15 10^3/uL (4.4-10.8)
[2021-11-04 22:08] LABS: ALT 33 U/L (14-59); AST 20 U/L (15-37); Albumin 3.7 g/dL (3.4-5.0); Alkaline Phosphatase 124 U/L (46-116); BUN 11 mg/dL (7-18); Bilirubin, Total 0.2 mg/dL (0.2-1.0); CREATININE 0.9 mg/dL (0.55-1.02); Calcium 8.7 mg/dL (8.5-10.1); Chloride 103 mmol/L (98-107); Glucose 100 mg/dL (74-106); Potassium 3.4 mmol/L (3.5-5.1); Sodium 139 mmol/L (136-145); Total Protein 7.7 g/dL (6.4-8.2)
[2021-11-04] MEDS: Ondansetron O.D.T. 4 MG TABEF, 3 TABS/BTL PO (22:45)
== END 2021-11-04 22:48 | disposition home or self-care (01) ==
PROVIDERS: Emergency Provider Registered Nurse Emergency; PCP Physician Assistant Medical
DX: R51.9 Headache, unspecified (principal); R11.0 Nausea; D72.819 Decreased white blood cell count, unspecified
CPT/HCPCS: 80053; 96361; 96374; 96375; 99284; 85025; 99283; J0780; J1200

== ENCOUNTER 2021-12-09 19:18 | Emergency (ER) | payer MEDICAID, SELFPAY ==
[2021-12-09] MEDS: Normal Saline 1,000 ML 1000 ML IV (19:20)
[2021-12-09 19:24] VITALS: BP 127/91; PULSE 69; RESP 18; TEMP 36.4; O2SAT 98
--- NOTE | 2021-12-09 19:50 | ED.GENADUL_ITS ---
Discharge Plan Disposition Patient Disposition: HOME Condition: Improving Discharge Details Clinical Impression: Headache Primary Care Provider: German Campa ED Provider: Miranda Pham Home Meds and New Rx's Prescriptions: New lgaslbhafj-zbmrjrdkiyyyc-stux 50-325-40 mg capsule 1 cap PO Q4H PRN (Reason: pain) Qty: 14 0RF Rx Instructions: Do not take more than 6 tablets in 24 hours Continued ropinirole 1 MG tablet 2 mg PO HS magnesium oxide 400 mg (241.3 mg magnesium) tablet 400 mg PO HS Label Comments: TK 1 T PO D gabapentin 300 MG capsule 800 mg PO .QHS venlafaxine 150 MG capsule,extended release 24hr 300 mg PO DAILY pantoprazole 40 mg tablet,delayed release (DR/EC) 40 mg PO HS Label Comments: TAKE 1 TABLET BY MOUTH EVERY DAY No Action metoclopramide HCl 10 mg tablet,disintegrating 10 mg PO Q6H PRN (Reason: nausea and vomiting) Qty: 20 0RF acetaminophen [Tylenol] 325 MG tablet 650 mg PO PRN PRN Discharge Instructions Instructions: General Headache (ED) Additional Instructions: Follow up with primary care provider in 3-5 days. Return to ED sooner if any worsening or concerns. Increase oral fluids. Please take Tylenol or Ibuprofen with food every 4-6 hours as needed for pain and swelling. Take the nausea medication up to 3 times daily as needed for nausea and vomiting. Do not take any additional Tylenol with the Fioricet. Referrals: German Campa PA [Primary Care Provider] - 3 days Medical Decision Making 36-year-old female presents to the ER with chief complaint of migraine headache which she reports she has a history of. She states that feel like her typical migraines. She denies any recent head trauma. She reports blurry vision frontal headache which radiates around to the back of her head. Denies any neck pain no chest pain. Denies any chills or fever. No focal neuro deficits noted. Patient did take her night meds prior to arrival which include gabapentin, ropinirole and 40 mg magnesium. She denies any nausea vomiting diarrhea. Normal saline, Compazine Benadryl and Toradol ordered. 2118: Patient reevaluation, IV fluid infusing patient reports that she feels much better her headache is now resolved. I did discuss home care with her we will send with to go Zofran and Fioricet prescription as needed for headache. Patient been hemodynamically stable alert and oriented throughout stay. HPI General Mode of arrival: ambulatory . Date/Time Provider Initiated Documentation: 12/09/21 19:43 . Limitations to Documentation: no limitations . Information obtained by: patient, RN notes reviewed and old records reviewed . HPI Narrative: 36-year-old female presents to the ER with chief complaint of migraine headache which she reports she has a history of. She states that feel like her typical migraines. She denies any recent head trauma. She reports blurry vision frontal headache which radiates around to the back of her head. Denies any neck pain no chest pain. Denies any chills or fever. No focal neuro deficits noted. Patient did take her night meds prior to arrival which include gabapentin, ropinirole and 40 mg magnesium. She denies any nausea vomiting diarrhea. Related Data Home Medications Medication Instructions Recorded Confirmed ropinirole 1 mg tablet 2 mg PO HS 06/08/15 12/09/21 venlafaxine 150 mg 300 mg PO DAILY 12/17/16 12/09/21 capsule,extended release 24 hr acetaminophen 325 mg tablet 650 mg PO PRN PRN 04/16/17 12/09/21 (Tylenol) gabapentin 300 mg capsule 800 mg PO .QHS 05/21/20 12/09/21 magnesium oxide 400 mg (241.3 mg 400 mg PO HS 05/21/20 12/09/21 magnesium) tablet pantoprazole 40 mg tablet,delayed 40 mg PO HS 11/24/20 12/09/21 release metoclopramide HCl 10 mg 10 mg PO Q6H PRN nausea and 08/03/21 12/09/21 disintegrating tablet vomiting #20 tabs ncckcpxxvs-psyphdujxtycv-lllpjrvw 1 cap PO Q4H PRN pain #14 caps 12/09/21 50 mg-325 mg-40 mg capsule Previous Rx's Medication Instructions Recorded metoclopramide HCl 10 mg 10 mg PO Q6H PRN nausea and 08/03/21 disintegrating tablet vomiting #20 tabs bwsboansvm-zqtiviihhktuo-oikpbigs 1 cap PO Q4H PRN pain #14 caps 12/09/21 50 mg-325 mg-40 mg capsule Allergies Allergy/AdvReac Type Severity Reaction Status Date / Time Penicillins Allergy Severe Swelling Verified 11/04/21 21:07 in throat granda flavor Allergy Intermediate throat Verified 11/04/21 21:07 bleeds,swelling kiwi Allergy Intermediate throat Verified 11/04/21 21:07 swells latex Allergy Mild rash,swelli Verified 11/04/21 21:07 ng aspirin AdvReac Intermediate stomach Verified 11/04/21 21:07 pain naproxen AdvReac Intermediate Nausea Verified 11/04/21 21:07 sumatriptan [From Imitrex] AdvReac Mild Headache Verified 11/04/21 21:07 wool Allergy Mild Skin Rash Uncoded 11/04/21 21:07 General Stated Complaint: Headache IVAN: 3 Review of Systems All systems reviewed & are unremarkable except as noted in HPI and below Constitutional Constitutional: Reports headache(s) ENT Ears, Nose, Mouth, and Throat: Reports headache(s) Neurologic Neurologic: Reports headache(s) PFSH All Active Problems (Updated 12/09/21 @ 21:25 by Miranda Pham) Nausea vomiting and diarrhea (Acute) Cephalgia (Acute) Headache (Acute) Nausea and vomiting (Acute) Colitis (Acute) Abdominal pain (Acute) Medical History Abscess, groin Anxiety Bipolar disorder BMI 35.0-35.9,adult Cholecystitis Depression Diarrhea Dizzy spells Elevated liver function tests GERD (gastroesophageal reflux disease) History of cannabis abuse History of tobacco abuse Migraine Obesity Pelvic pain in female Restless leg syndrome Right ovarian cyst Umbilical hernia Ventral hernia Surgical History Diagnostic Laproscopy 2002 [facility]. bilateral ovarian cystectomies 11/2009. Diagnostic laparoscopy for chronic RLQ pain after LAVH in 2009. EGD - MAC (12/16/16) H/O: hysterectomy History of umbilical hernia repair (~09/13/19) Hysterectomy, Laproscopic (~11/2009) LAVH, ovarian conservation for dysmenorrhea Oophrectomy, Right (06/09/15) Laparoscopic RSO with L salpingectomy for R sided pelvic pain. R corpus luteum cyst. no pathology. R wrist cyst removal 10/2002 S/P laparoscopic cholecystectomy (~11/25/20) Tooth extraction 07/2014 wisdom teeth extraction Social History Smoking/Tobacco Use Status: Current every day Tobacco Type: cigarettes Tobacco: How many years used: 13 Smoking risk assessment performed?: Yes Alcohol Intake: current Alcohol Intake frequency: holidays/special occasions only Alcohol type: beer, wine and hard liquor Drug use: Occasionally Substance use type: marijuana Current gender identity: female Do you feel safe at home: Yes Do you feel safe in your relationship?: Yes Exam Narrative Exam Narrative: Constitutional: Alert and oriented x3. Appears stated age. Normal body habitus. Head: Normocephalic, no trauma. Eyes: Pupils PERRL, Red reflex noted, EOM's intact. Eyelids symmetrical without lesions, discharge, or swelling. ENT: Bilateral TM's WNL, External ear normal to inspection, no mastoid TTP, swelling, or erythema, Nasal turbinates WNL, no nasal discharge. Normal dentition, Posterior pharynx WNL, no exudate. Chest: RRR, Normal S1, S2, distal pulses intact. Resp: Lungs clear to auscultation bilaterally, no wheezes, rales, or rhonchi. Abdomen: Soft, non-distended, Normoactive bowel sounds all 4 quads. Musculoskeletal: Normal gait, 5/5 strength to all four extremities. Skin: No suspicious rashes or lesions. Capillary refill less than 2 sec. Neurologic: Cranial nerves II-XII intact. Alert and oriented x 3. Motor: No deficits noted. Sensory: Intact bilaterally all 4 extremities. Reflexes: DTR's intact bilaterally.. Hematologic/Lymphatic: No ecchymosis, no lymphadenopathy. Course Vital Signs Vital signs: Vital Signs Temperature 36.4 C L 12/09/21 19:24 Pulse 69 12/09/21 19:24 Respiratory Rate 18 12/09/21 19:24 Blood Pressure 127/91 H 12/09/21 19:24 Pulse Oximetry 98 12/09/21 19:24 Temperature 36.4 C L 12/09/21 19:24 Temperature Source Temporal Artery Scan 12/09/21 19:24 Pulse 69 12/09/21 19:24 Respiratory Rate 18 12/09/21 19:24 Respiratory Effort 12/09/21 19:30 Blood Pressure 127/91 H 12/09/21 19:24 Blood Pressure Position Supine 12/09/21 19:24 Pulse Oximetry 98 12/09/21 19:24
[2021-12-09] MEDS: diphenhydrAMINE 50 MG/ML VIAL 25 MG IVP (20:02)
[2021-12-09] MEDS: Prochlorperazine 10 MG/2 ML VIAL IVP (20:05)
[2021-12-09] MEDS: Ketorolac 15 MG/ML VIAL IVP (20:05)
[2021-12-09 21:32] VITALS: BP 132/68; PULSE 82; RESP 16; O2SAT 99
== END 2021-12-09 21:37 | disposition home or self-care (01) ==
PROVIDERS: Emergency Provider Registered Nurse Emergency; PCP Physician Assistant Medical
DX: G43.909 Migraine, unspecified, not intractable, without status migrainosus (principal)
CPT/HCPCS: 96361; 96374; 96375; 99284; 99283; J0780; J1200; J1885

== ENCOUNTER 2021-12-29 14:09 | Observation (INO) | payer MEDICAID, SELFPAY ==
[2021-12-29] VITALS (11 sets, daily range): BP systolic 117–162; BP diastolic 79–103; PULSE 57–92; RESP 14–18; TEMP 35.7–36.9; O2SAT 92–99; BMI 34.4
--- NOTE | 2021-12-29 14:30 | ED.GENADUL_ITS ---
Discharge Plan Disposition Patient Disposition: [facility] Condition: Stable Discharge Details Clinical Impression: Abdominal pain Primary Care Provider: German Campa ED Provider: Ismael Blackmon Discharge Data Discharge Date/Time-TO BE ENTERED AT DEPARTURE: 12/29/21 18:47 Medical Decision Making Presents with diagnosis of acute appendicitis. The case was discussed with Dr. Lopez. Awaiting CAT scan and blood work. Given the significant physical exam with peritoneal irritation, patient will be getting a CT abdomen pelvis with IV contrast. 16:00 CT scan is read as negative. Normal appendix. Patient still having persistent right lower quadrant pain. Case rediscussed with Dr. Lopez who will see the patient in the emergency department. HPI General Date/Time Provider Initiated Documentation: 12/29/21 14:27 . HPI Narrative: 46-year-old presents to the emergency room for evaluation of abdominal pain. He has been having right lower quadrant pain for the past few days. The pain initially started. Medical Related to her right iliac crest area yesterday. Associated with nausea and vomiting. Also associated loss of appetite. Patient been in bed for the past few days. No urinary symptoms. Patient has had multiple surgeries in the past. Cholecystectomy, hysterectomy, bilateral oophorectomy, The pain is worse with any movement. Better with laying down still Related Data Home Medications Medication Instructions Recorded Confirmed ropinirole 1 mg tablet 2 mg PO HS 06/08/15 12/29/21 venlafaxine 150 mg 300 mg PO DAILY 12/17/16 12/29/21 capsule,extended release 24 hr acetaminophen 325 mg tablet 650 mg PO PRN PRN 04/16/17 12/29/21 (Tylenol) gabapentin 300 mg capsule 800 mg PO .QHS 05/21/20 12/29/21 magnesium oxide 400 mg (241.3 mg 400 mg PO HS 05/21/20 12/29/21 magnesium) tablet metoclopramide HCl 10 mg 10 mg PO Q6H PRN nausea and 08/03/21 12/29/21 disintegrating tablet vomiting #20 tabs weuqksoqfk-iaahhncprucfj-nbejhdjv 1 cap PO Q4H PRN pain #14 caps 12/09/21 0 12/29/21 50 mg-325 mg-40 mg capsule omeprazole 40 mg capsule,delayed 40 cap PO HS 12/29/21 12/29/21 release Previous Rx's Medication Instructions Recorded metoclopramide HCl 10 mg 10 mg PO Q6H PRN nausea and 08/03/21 disintegrating tablet vomiting #20 tabs uukhzmwmqt-lwrvgydzxrejo-fznlibtm 1 cap PO Q4H PRN pain #14 caps 12/09/21 50 mg-325 mg-40 mg capsule Allergies Allergy/AdvReac Type Severity Reaction Status Date / Time Penicillins Allergy Severe Swelling Verified 12/29/21 14:15 in throat granda flavor Allergy Intermediate throat Verified 12/29/21 14:15 bleeds,swelling kiwi Allergy Intermediate throat Verified 12/29/21 14:15 swells latex Allergy Mild rash,swelli Verified 12/29/21 14:15 ng aspirin AdvReac Intermediate stomach Verified 12/29/21 14:15 pain naproxen AdvReac Intermediate Nausea Verified 12/29/21 14:15 sumatriptan [From Imitrex] AdvReac Mild Headache Verified 12/29/21 14:15 wool Allergy Mild Skin Rash Uncoded 12/29/21 14:15 General Stated Complaint: Abd Prob IVAN: 3 Review of Systems Narrative: Constitutional positive fever chills malaise and fatigue HEENT negative Cardiovascular no chest pain Respiratory no cough no shortness of breath GI see HPI no frequency no dysuria MSK no myalgias no arthralgias Skin no rashes Neuro no headaches no paresthesias Psych anxious Hematological no blood thinners PFSH All Active Problems (Updated 01/01/22 @ 00:05 by DELIA PÉREZ) Nausea vomiting and diarrhea (Acute) Cephalgia (Acute) Headache (Acute) Abdominal pain (Acute) Nausea and vomiting (Acute) Colitis (Acute) Abdominal pain (Acute) Medical History Abscess, groin Anxiety Bipolar disorder BMI 35.0-35.9,adult Cholecystitis Depression Diarrhea Dizzy spells Elevated liver function tests GERD (gastroesophageal reflux disease) History of cannabis abuse History of tobacco abuse Migraine Obesity Pelvic pain in female Restless leg syndrome Right ovarian cyst Umbilical hernia Ventral hernia Surgical History Diagnostic Laproscopy 2002 Weeks Hosp. bilateral ovarian cystectomies 11/2009. Diagnostic laparoscopy for chronic RLQ pain after LAVH in 2009. EGD - MAC (12/16/16) H/O: hysterectomy History of umbilical hernia repair (~09/13/19) Hysterectomy, Laproscopic (~11/2009) LAVH, ovarian conservation for dysmenorrhea Oophrectomy, Right (06/09/15) Laparoscopic RSO with L salpingectomy for R sided pelvic pain. R corpus luteum cyst. no pathology. R wrist cyst removal 10/2002 S/P laparoscopic cholecystectomy (~11/25/20) Tooth extraction 07/2014 wisdom teeth extraction Social History Smoking/Tobacco Use Status: Current every day Tobacco Type: cigarettes Tobacco: How many years used: 13 Smoking risk assessment performed?: Yes Alcohol Intake: current Alcohol Intake frequency: holidays/special occasions only Alcohol type: beer, wine and hard liquor Drug use: Occasionally Substance use type: marijuana Current gender identity: female Do you feel safe at home: Yes Do you feel safe in your relationship?: Yes Exam Narrative Exam Narrative: Awake alert oriented x3 in moderate distress, cooperative and pleasant DANY EOMI MMM anicteric Supple neck Chest discomfort auscultation bilaterally RRR Abd soft, positive RLQ pain and diffusely, pos rebound Back no CVAT Ext no edema Neuro grossly intact skin no rashes Course Vital Signs Vital signs: Vital Signs Temperature 36.3 C L 12/29/21 14:13 Pulse 92 H 12/29/21 14:13 Respiratory Rate 18 12/29/21 14:13 Blood Pressure 146/100 H 12/29/21 14:13 Pulse Oximetry 97 12/29/21 14:13 Temperature 36.3 C L 12/29/21 14:13 Temperature Source Temporal Artery Scan 12/29/21 14:13 Pulse 92 H 12/29/21 14:13 Respiratory Rate 18 12/29/21 14:13 Respiratory Effort Non-Labored 12/29/21 14:16 Blood Pressure 146/100 H 12/29/21 14:13 Blood Pressure Position Sitting 12/29/21 14:13 Pulse Oximetry 97 12/29/21 14:13 Oxygen Delivery Method Room Air 12/29/21 14:13 Oxygen Flow Rate 0 12/29/21 14:13 Sign Out Sign Out Data: Sign Out Comment: 36-year-old with right lower quadrant pain x3 days. Initially was thought that she was having acute appendicitis however the CAT scan came back as negative. She does have a white count and is uncomfortable quadrant. The case was discussed Dr. Lopez, will come see the patient in the emergency department. At time of signout UA still pending and I have added a lactate to the work-up. Last updated by Tk Serna MD at 12/29/21 16:07
[2021-12-29] MEDS: MORPHine 4 MG/ML SYR IVP (14:36)
[2021-12-29] MEDS: Normal Saline 1,000 ML 1000 ML IV ×2 (14:37→17:06)
[2021-12-29] MEDS: Ondansetron 4 MG/2 ML VIAL IVP (14:39)
[2021-12-29 14:40] LABS: Source Nasal/Nares
[2021-12-29 14:42] LABS: Abs Immature Grans 0.03 10^3/uL (0.0-0.06); Absolute Lymphocyte Count 3.32 10^3/uL (1.2-3.4); Absolute Monocyte Count 0.51 10^3/uL (0.1-0.8); Eosinophils % 1.7; HCT 48.9 % (36.0-46.0); HGB 16.2 g/dL (11.2-15.7); Immature Grans % 0.3; Lymphocytes % 28.8; MCH 29.5 pg (27.0-33.0); MCHC 33.1 % (32.0-36.0); MCV 89 fL (80-95); MPV 10.9 fL (8.0-11.0); Monocytes % 4.4; Neutrophils % 63.8; Platelet Count 312 10^3/uL (130-400); RDW 13.4 % (11.7-14.6); RDW-SD 43.7 fL; WBC 11.54 10^3/uL (4.4-10.8)
[2021-12-29 14:44] LABS: Absolute Basophil Count 0.12 10^3/uL (0.0-0.2); Absolute Neutrophil Count 7.36 10^3/uL (1.2-6.7)
--- NOTE | 2021-12-29 14:45 | DI.CT_ITS ---
Exam(s) CT ABDOMEN PELVIS W EXAM: CT ABDOMEN PELVIS W CLINICAL HISTORY: RLQ pain -positive peritoneal irritation. TECHNIQUE: Imaging Protocol: Axial computed tomography images with coronal and sagittal reformatted images were created and reviewed CONTRAST MATERIAL: Intravenous: Omnipaque 100cc Oral: None COMPARISON: CT CT ABDOMEN PELVIS W from 08/29/[address] ABDOMEN PELVIS W from 03/03/2021 FINDINGS: VISUALIZED LUNG BASES: No nodules nor pleural effusions evident. ABDOMEN: There is no ascites. LIVER: There are 2 adjacent cysts in the liver adjacent to the gallbladder fossa, unchanged from the CT scan of 03/03/2021. However, the cysts were not evident on CT scan of 08/29/2019. At that time t he gallbladder was still present. Combined size of these 2 adjacent cystic structures in the right h epatic lobe is 3.3 cm by 1.5 cm. No other focal hepatic findings.. GALLBLADDER/BILIARY: Surgical clips from prior cholecystectomy. CBD is not dilated. PANCREAS: No evidence of pancreatic mass nor dilatation of the pancreatic duct. SPLEEN: Spleen is not enlarged. No obvious intrasplenic lesions. Splenic and portal veins are paten t. ADRENALS: There are no significant adrenal masses. KIDNEYS:No cysts evident. No solid renal masses. No calculi nor hydronephrosis.. ABDOMINAL AORTA: Abdominal aorta is not enlarged. LYMPH NODES:There is no retroperitoneal nor paraaortic adenopathy. ABDOMINAL WALL: Fat containing umbilical hernia. No bowel loops therein. No bowel obstruction. GI: There is no evidence of bowel obstruction, free air, nor abscess. PELVIS: GI: Appendix not seen. No evidence of obvious appendicitis.No evidence of sigmoid diverticulitis. LYMPH NODES: There is no intrapelvic nor inguinal adenopathy. REPRODUCTIVE: The uterus is surgically absent. There is a cyst in left ovary measuring 1.8 x 1.7 cm. Right ovary is not identified. No free fluid in the pelvis. URINARY BLADDER: Unremarkable. OSSEOUS: No significant osseous lesions. No fractures. IMPRESSION: 1. Uterus is surgically absent. There is an 18 x 17 millimeters cyst in left ovary. No surrounding fluid in the left adnexa nor elsewhere in the pelvis. The right ovary is not seen and may be surgica lly absent. 2. Gallbladder is now surgically absent. There are 2 cystic structures in the right hepatic lobe gal lbladder fossa region which were not evident on 08/29/2019 but appear unchanged from 03/03/2021. Eit her relatively new cysts or possible remnant gallbladder tissue. Correlation with surgical history i s recommended. 3. The appearance of the left side of the colon is unchanged and either related to chronic colitis ty pe pattern or under distension. 4. RADIATION DOSE DELIVERED: 1,229.1mGy.cm Total DLP DATA REPOSITORY: All CT scans at this facility are submitted to the National Radiology Data Registry (NRDR) Dose Index Registry (DIR) with the [employer] (ACR). RADIATION OPTIMIZATION: All CT scans at this facility use at least one of these dose optimization te chniques: automated exposure control; mA and/or kV adjustment per patient size (includes targeted exa ms where dose is matched to clinical indication); or iterative reconstruction.
[2021-12-29 14:55] LABS: ALT 46 U/L (14-59); AST 31 U/L (15-37); Albumin 3.7 g/dL (3.4-5.0); Alkaline Phosphatase 149 U/L (46-116); Anion Gap 11.6 mmol/L (3-11); BUN 11 mg/dL (7-18); Bilirubin, Total 0.5 mg/dL (0.2-1.0); CO2 21.4 mmol/L (21.0-32.0); Chloride 104 mmol/L (98-107); Glucose 103 mg/dL (74-106); Potassium 3.7 mmol/L (3.5-5.1); Sodium 137 mmol/L (136-145)
[2021-12-29] MEDS: MORPHine 10 MG/ML VIAL 6 MG IVP (15:18)
[2021-12-29] MEDS: metroNIDAZOLE 500 MG/100 ML BAG 100 MG IVPB (15:20)
[2021-12-29 15:32] LABS: COVID-19 PCR Negative (Negative)
[2021-12-29] MEDS: HYDROmorphone 2 MG/ML VIAL 1 MG IVP ×2 (15:39→17:42)
--- NOTE | 2021-12-29 15:45 | RT.EKG_ITS ---
APPROVED REPORT Exam: Resting ECG Reason for Exam: chest pain Patient Location: E HR:63 bpm ECG Measurements Heart Rate 63 AXIS FL 158 P 44 QRSd 104 QRS -3 QT 437 T 16 QTc 448 Conclusion Sinus rhythm...normal P axis, V-rate 60- 99
--- NOTE | 2021-12-29 15:56 | DI.VRAD_ITS ---
PROCEDURE INFORMATION: Exam: CT Abdomen And Pelvis With Contrast Exam date and time: 12/29/2021 3:05 PM Age: 36 years old Clinical indication: Other: Rlq pain, positive peritoneal irritation TECHNIQUE: Imaging protocol: Computed tomography of the abdomen and pelvis with contrast. Radiation optimization: All CT scans at this facility use at least one of these dose optimization techniques: automated exposure control; mA and/or kV adjustment per patient size (includes targeted exams where dose is matched to clinical indication); or iterative reconstruction. Contrast material: VISIPAQUE; Contrast volume: 100 ml; Contrast route: INTRAVENOUS (IV); COMPARISON: CT ABDOMEN PELVIS W 03/03/2021 11:28 AM FINDINGS: Lungs: Visualized lung bases are clear. No pleural effusions. Liver: No acute abnormality. Two cysts are again identified in the inferior right lobe, the larger measuring up to 2 cm. Gallbladder and bile ducts: The gallbladder is again noted to be surgically absent. There is no intrahepatic or extrahepatic biliary ductal dilatation. Pancreas: Unremarkable. Spleen: Unremarkable. The spleen is normal in size. Adrenal glands: Unremarkable. Kidneys and ureters: Unremarkable. No hydronephrosis or hydroureter. There is normal and symmetric renal enhancement. Stomach and bowel: The stomach is nondilated. The small and large bowel are normal in caliber. Multiple loops of small bowel and some segments of colon are essentially collapsed/decompressed and therefore not well assessed. Appendix: A nondilated appendix is identified (series 4, images [id number]). Intraperitoneal space: No ascites, fluid collection, or pneumoperitoneum. Retroperitoneal space: Unremarkable. No retroperitoneal collection or mass. Vasculature: Unremarkable. The abdominal aorta is normal in caliber. Lymph nodes: No pathologically enlarged lymph nodes. Urinary bladder: Nearly collapsed and therefore not well evaluated. No gross abnormality. Reproductive: The uterus is again noted to be surgically absent. Two prominent follicles are noted in the left ovary, the larger measuring up to 2.3 cm. No suspicious pelvic masses. Bones/joints: No suspicious osseous lesions. Soft tissues: Postsurgical changes from presumed previous umbilical herniorrhaphy with mesh. No acute or suspicious abnormality. IMPRESSION: 1. No acute abnormality in the abdomen or pelvis. No specific evidence of an inflammatory or obstructive process. Normal appendix. 2. Stable chronic and incidental findings are discussed in the body of the report. Dictated and Authenticated by: Esther Leone MD. Ordering:CASE Frey MD
[2021-12-29 16:19] LABS: Bilirubin Negative (Negative); Blood Trace-intact (Negative); Clarity Clear (Clear); Glucose Negative (Negative); Ketones 40 mg/dL (Negative); Leukocyte Esterase Negative (Negative); Nitrite Negative (Negative); Specific Gravity 1.015 (1.005-1.025)
[2021-12-29 16:25] LABS: Lactate 0.8 mmol/L (0.6-1.4)
[2021-12-29 16:42] LABS: Bacteria Negative HPF (Negative); C & S Indicated? No; Casts Negative LPF (Negative); Crystals Negative HPF (Negative); Epithelial Cells Few HPF (Negative); Mucus Negative (Negative); Other Cells Negative (Negative); RBC Negative HPF (0-2); WBC Negative HPF (0-5)
[2021-12-29] MEDS: levoFLOXacin 500 MG/100 ML BAG 100 MG IVPB (17:45)
--- NOTE | 2021-12-29 17:48 | SCONE_ITS ---
Date of service: 12/29/21 Time of Service: 17:49 Assessment and Plan Assessment and plan (1) Acute appendicitis: Status: Acute Assessment and plan: 36 yo woman with RLQ most consistent with acute appendicitis. She is stable but her abdominal exam has focal peritonitis and is concerning enough to warrant surgical exploration. CT scan does not show RLQ inflammation and I d/w patient about possibility of non-diagnostic result/negative laparoscopy. She could have mesenteric adenitis from a viral condition causing her pain. A Meckel's diverticulum is possible. If no cause for the pain is found, I will remove the normal appendix. Other causes will be treated appropriately depending on what we find and I prepared her for the possibility of a bowel resection potentially. She agrees with this plan. History of Present Illness History of Present Illness Chief Complaint: RLQ abd pain x3 days Narrative: No prior pain like this. Started 3 days ago. Around belly button, moved to RLQ. It has stayed constant and not moved since. This morning is worsened. She has had associated vomiting but no diarrhea. She thinks the vomiting is secondary to severe pain. No issues urinating. She has a history of RLQ pain as well as pelvic pain. She has been explored bailey rgically before for pain here, but today she is adamant this is something different. Surgery Hx: cholecystectomy, hysterectomy, R oopherectomy, Umb hernia repair. PFSH All Active Problems (Updated 12/29/21 @ 17:55 by Vladimir Lopez MD) Acute appendicitis (Acute) Nausea vomiting and diarrhea (Acute) Cephalgia (Acute) Headache (Acute) Abdominal pain (Acute) Nausea and vomiting (Acute) Colitis (Acute) Abdominal pain (Acute) Medical History Abscess, groin Anxiety Bipolar disorder BMI 35.0-35.9,adult Cholecystitis Depression Diarrhea Dizzy spells Elevated liver function tests GERD (gastroesophageal reflux disease) History of cannabis abuse History of tobacco abuse Migraine Obesity Pelvic pain in female Restless leg syndrome Right ovarian cyst Umbilical hernia Ventral hernia Surgical History Diagnostic Laproscopy [facility] bilateral ovarian cystectomies 11/2009. Diagnostic laparoscopy for chronic RLQ pain after LAVH in 2009. EGD - MAC (12/16/16) H/O: hysterectomy History of umbilical hernia repair (~09/13/19) Hysterectomy, Laproscopic (~11/2009) LAVH, ovarian conservation for dysmenorrhea Oophrectomy, Right (06/09/15) Laparoscopic RSO with L salpingectomy for R sided pelvic pain. R corpus luteum cyst. no pathology. R wrist cyst removal 10/2002 S/P laparoscopic cholecystectomy (~11/25/20) Tooth extraction 07/2014 wisdom teeth extraction Social History Smoking/Tobacco Use Status: Current every day Tobacco Type: cigarettes Tobacco: How many years used: 13 Smoking risk assessment performed?: Yes Alcohol Intake: current Alcohol Intake frequency: holidays/special occasions only Alcohol type: beer, wine and hard liquor Drug use: Occasionally Substance use type: marijuana Current gender identity: female Do you feel safe at home: Yes Do you feel safe in your relationship?: Yes Exam Narrative Exam Narrative: Gen: Very uncomfortable Neuro: AxOx3 Psych: Appropriate mood and affect Abd: soft, mild distention, obese. Tap tenderness in RLQ only. Guarding in RLQ. the other 3 Qs are soft and nontender. Results Last Vital Signs Temp 97.9 F 12/29/21 17:09 Pulse 63 12/29/21 17:09 Resp 18 12/29/21 17:09 BP 129/80 12/29/21 17:09 Pulse Ox 99 12/29/21 17:09 Labs Result diagrams: 12/29/21 14:25 12/29/21 14:25 Labs: Laboratory Results - last 24 hr 12/29/21 12/29/21 12/29/21 14:25 14:25 14:36 WBC 11.54 H RBC 5.50 H Hgb 16.2 H Hct 48.9 H MCV 89 MCH 29.5 MCHC 33.1 RDW 13.4 Plt Count 312 MPV 10.9 Immature Gran % 0.3 Neutrophils % 63.8 Lymphocytes % 28.8 Monocytes % 4.4 Eosinophils % 1.7 Basophils % 1.0 Nucleated RBC % 0.0 Absolute Neutrophils 7.36 H Absolute Lymphocytes 3.32 Absolute Monocytes 0.51 Absolute Eosinophils 0.20 Absolute Basophils 0.12 VBG Lactate Sodium 137 Potassium 3.7 Chloride 104 Carbon Dioxide 21.4 Anion Gap 11.6 H BUN 11 Creatinine 1.0 Estimated GFR/1.73 m2 >= 60.00 Glucose 103 Calcium 9.0 Total Bilirubin 0.5 AST 31 ALT 46 Alkaline Phosphatase 149 H Total Protein 8.0 Albumin 3.7 Urine Color Urine Clarity Urine pH Ur Specific Cardwell Urine Protein Urine Ketones Urine Blood Urine Nitrite Urine Bilirubin Urine Urobilinogen Ur Leukocyte Esterase Urine RBC Urine WBC Ur Epithelial Cells Urine Crystals Urine Bacteria Urine Casts Urine Mucus Urine Other Ur Culture Indicated? Urine Glucose COVID-19 Source Nasal/Nares SARS-CoV-2 (PCR) Negative 12/29/21 12/29/21 15:25 16:15 WBC RBC Hgb Hct MCV MCH MCHC RDW Plt Count MPV Immature Gran % Neutrophils % Lymphocytes % Monocytes % Eosinophils % Basophils % Nucleated RBC % Absolute Neutrophils Absolute Lymphocytes Absolute Monocytes Absolute Eosinophils Absolute Basophils VBG Lactate 0.8 Sodium Potassium Chloride Carbon Dioxide Anion Gap BUN Creatinine Estimated GFR/1.73 m2 Glucose Calcium Total Bilirubin AST ALT Alkaline Phosphatase Total Protein Albumin Urine Color Yellow Urine Clarity Clear Urine pH 6.0 Ur Specific Cardwell 1.015 Urine Protein 30 H Urine Ketones 40 H Urine Blood Trace-intact H Urine Nitrite Negative Urine Bilirubin Negative Urine Urobilinogen 1.0 H Ur Leukocyte Esterase Negative Urine RBC Negative Urine WBC Negative Ur Epithelial Cells Few Urine Crystals Negative Urine Bacteria Negative Urine Casts Negative Urine Mucus Negative Urine Other Negative Ur Culture Indicated? No Urine Glucose Negative COVID-19 Source SARS-CoV-2 (PCR)
--- NOTE | 2021-12-29 18:10 | W.EDPROG ---
Date of service: 12/29/21 Time of Service: 16:00 Medical Decision Making Patient signed out to me by Dr. Serna for chief complaint of abdominal pain that is periumbilical and radiating to right lower quadrant. CT scanning was reviewed just a signout process was occurring. No obvious surgical findings were noted but given patient's significant amount of pain Dr. Serna called the on-call surgeon for evaluation. Lactate was reviewed and is unremarkable. Still pending urinalysis On-call surgeon Dr. Lopez came to the emergency department and evaluated the patient. Due to patient's significant amount of pain plan of care is for exploratory lap surgery to occur and patient to be admitted to [facility] after OR. Medical Records Medical records reviewed: Yes I reviewed the patient's medical records. Lab Data Lab results reviewed: Yes I reviewed the patient's lab results. Exam Const General: cooperative, acute distress moderate (pain) and severe and ill appearing Orientation: alert, awake and oriented x3 HENMT Mouth: moist mucous membranes Resp Effort & Inspection: normal respiratory effort, able to speak in complete sentences and no respiratory distress Skin General skin exam: no rashes or lesions noted Neuro General: patient alert, patient awake, patient oriented x3 and moves all extremities Sign Out Sign Out Data: Sign Out Comment: 36-year-old with right lower quadrant pain x3 days. Initially was thought that she was having acute appendicitis however the CAT scan came back as negative. She does have a white count and is uncomfortable quadrant. The case was discussed Dr. Lopez, will come see the patient in the emergency department. At time of signout UA still pending and I have added a lactate to the work-up. Last updated by Tk Serna MD at 12/29/21 16:07 Discharge Plan Disposition Patient Disposition: [facility] Condition: Stable Discharge Details Clinical Impression: Abdominal pain Primary Care Provider: German Campa ED Provider: Ismael Blackmon Discharge Data Discharge Date/Time-TO BE ENTERED AT DEPARTURE: 12/29/21 18:47
--- NOTE | 2021-12-29 18:28 | ANES.PREOP_ITS ---
General Info Date of Service Date Performed: 12/29/21 Height: 5 ft 7 in Weight: 99.79 kg Body Mass Index (BMI): 34.4 Surgical Procedure: Operation Date: 12/29/21 18:00 Proposed Procedure Side Surgeon p Appendectomy Laparoscopic Not Applicable Vladimir Lopez MD Meds Allergies and Home Medications Allergies Allergy/AdvReac Type Severity Reaction Status Date / Time Penicillins Allergy Severe Swelling Verified 12/29/21 14:15 in throat granda flavor Allergy Intermediate throat Verified 12/29/21 14:15 bleeds,swelling kiwi Allergy Intermediate throat Verified 12/29/21 14:15 swells latex Allergy Mild rash,swelli Verified 12/29/21 14:15 ng aspirin AdvReac Intermediate stomach Verified 12/29/21 14:15 pain naproxen AdvReac Intermediate Nausea Verified 12/29/21 14:15 sumatriptan [From Imitrex] AdvReac Mild Headache Verified 12/29/21 14:15 wool Allergy Mild Skin Rash Uncoded 12/29/21 14:15 Home Medication Medication Instructions Recorded ropinirole 1 mg tablet 2 mg PO HS 06/08/15 venlafaxine 150 mg 300 mg PO DAILY 12/17/16 capsule,extended release 24 hr acetaminophen 325 mg tablet 650 mg PO PRN PRN 04/16/17 (Tylenol) gabapentin 300 mg capsule 800 mg PO .QHS 05/21/20 magnesium oxide 400 mg (241.3 mg 400 mg PO HS 05/21/20 magnesium) tablet metoclopramide HCl 10 mg 10 mg PO Q6H PRN nausea and 08/03/21 disintegrating tablet vomiting #20 tabs weftsehljf-nygeousdvguxz-bscwlhac 1 cap PO Q4H PRN pain #14 caps 12/09/21 50 mg-325 mg-40 mg capsule omeprazole 40 mg capsule,delayed 40 cap PO HS 12/29/21 release Current Visit Medications: Current Medications Generic Name Dose Route Start Last Admin Trade Name Freq PRN Reason Stop Dose Admin Iodixanol 100 ml 12/29/21 15:15 12/29/21 15:07 Visipaque 320 Mg/Ml 50 Ml Btl IV 01/28/22 23:59 100 ml DIRECTED GEORGE Administration PFSH Active Problems Active Problems: Problem Status Onset Code Acute appendicitis K35.80 Nausea vomiting and diarrhea R11.2, R19.7 Cephalgia R51.9 Headache R51.9 Abdominal pain R10.9 Nausea and vomiting R11.2 Colitis K52.9 Abdominal pain R10.9 Medical History Medical History Abscess, groin Anxiety Bipolar disorder BMI 35.0-35.9,adult Cholecystitis Depression Diarrhea Dizzy spells Elevated liver function tests GERD (gastroesophageal reflux disease) History of cannabis abuse History of tobacco abuse Migraine Obesity Pelvic pain in female Restless leg syndrome Right ovarian cyst Umbilical hernia Ventral hernia Surgical History Surgical History Diagnostic Laproscopy [facility] bilateral ovarian cystectomies 11/2009. Diagnostic laparoscopy for chronic RLQ pain after LAVH in 2009. EGD - MAC (12/16/16) H/O: hysterectomy History of umbilical hernia repair (~09/13/19) Hysterectomy, Laproscopic (~11/2009) LAVH, ovarian conservation for dysmenorrhea Oophrectomy, Right (06/09/15) Laparoscopic RSO with L salpingectomy for R sided pelvic pain. R corpus luteum cyst. no pathology. R wrist cyst removal 10/2002 S/P laparoscopic cholecystectomy (~11/25/20) Tooth extraction 07/2014 wisdom teeth extraction Tobacco Smoking/Tobacco Use Status: Current every day Tobacco Type: cigarettes Smoking cigarettes per day: 10 Alcohol Alcohol Intake: current Alcohol intake frequency: holidays/special occasions only Alcohol type: beer, wine and hard liquor Substance Use Substance use: Occasionally Substance use type: marijuana Vital Signs and Lab Results Vital Signs Most Recent Vital Signs in EMR: Most Recent Vital Signs Temp Pulse Resp BP Pulse Ox 36.6 C 63 18 129/80 99 12/29/21 17:09 12/29/21 17:09 12/29/21 17:09 12/29/21 17:09 12/29/21 17:09 Lab Results Result Diagrams: 12/29/21 14:25 12/29/21 14:25 Blood Type / Crossmatch: No Data to Display Complete Blood Count: White Blood Count 11.54 10^3/uL (4.4-10.8) H 12/29/21 14:25 Red Blood Count 5.50 10^6/uL (3.93-5.22) H 12/29/21 14:25 Hemoglobin 16.2 g/dL (11.2-15.7) H 12/29/21 14:25 Hematocrit 48.9 % (36.0-46.0) H 12/29/21 14:25 Platelet Count 312 10^3/uL (130-400) 12/29/21 14:25 Venous Blood Lactate 0.8 mmol/L (0.6-1.4) 12/29/21 15:25 Complete Metabolic Panel: Sodium Level 137 mmol/L (136-145) 12/29/21 14:25 Potassium Level 3.7 mmol/L (3.5-5.1) 12/29/21 14:25 Chloride Level 104 mmol/L (98-107) 12/29/21 14:25 Carbon Dioxide Level 21.4 mmol/L (21.0-32.0) 12/29/21 14:25 Blood Urea Nitrogen 11 mg/dL (7-18) 12/29/21 14:25 Creatinine 1.0 mg/dL (0.55-1.02) 12/29/21 14:25 Estimated GFR/1.73 m2 >= 60.00 (mL/min/1.73m2) 12/29/21 14:25 Calcium Level 9.0 mg/dL (8.5-10.1) 12/29/21 14:25 Albumin 3.7 g/dL (3.4-5.0) 12/29/21 14:25 Glucose Level 103 mg/dL (74-106) 12/29/21 14:25 Liver Function Panel: Alanine Aminotransferase (ALT/SGPT) 46 U/L (14-59) 12/29/21 14: 25 Aspartate Amino Transf (AST/SGOT) 31 U/L (15-37) 12/29/21 14:25 Coagulation Panel: No Data to Display Cardiac Panel: No Data to Display Arterial Blood Gas: No Data to Display Venous Blood Gas: No Data to Display Pancreas Panel: No Data to Display Thyroid Panel: No Data to Display Infectious Disease: Coronavirus (COVID-19)(PCR) Negative (Negative) 12/29/21 14:36 Coronavirus 2019 Source Nasal/Nares 12/29/21 14:36 Blood Cultures: No Data to Display Toxicology Panel: No Data to Display Panel: No Data to Display Imaging and Studies Imaging and Studies Study information below may be from another EMR and interpreted by another provider. Please see original notes in EMR for more complete details. EKG Summary: ECG Measurements Heart Rate 63 AXIS AR 158 P 44 QRSd 104 QRS -3 QT 437 T16 QTc 448 Conclusion Sinus rhythm...normal P axis, V-rate 60- 99 Anesthesia Assessment and Plan Anesthesia History Personal History: No History of Anesthesia Complications Family History: No Family History of Anesthesia Complications Exercise Tolerance Exercise Tolerance: Metabolic Equivalents>4 Pertinent Negatives Pertinent Negatives: No Major Cardiovascular Symptoms or Complaints and No Major Pulmonary Symptoms or Complaints Cardiac & Pulmonary Exam Cardiac Exam: Normal S1/S2 Heart Sounds Pulmonary Exam: Clear Bilateral Breath Sounds Implantable Cardiac Device Does patient have a Pacemaker or an ICD?: No Airway Exam Known Difficult Airway: No Mallampati Class: 2 Mouth Opening: Normal (> 3cm) Thyromental Distance: Greater than 3 cm Neck Range of Motion: Full ROM Neck Circumference: Normal Teeth Condition: Loose or Chipped ASA Classification ASA Score: ASA 2 Emergency Case?: Yes NPO Status NPO Status: NPO Clears >2 hours, Solids >8 hours Status Status: History of Hysterectomy Anesthesia Plan Resuscitation Status: Full Code Anesthesia Technique: General Anesthesia Airway Planned: Endotracheal Tube Monitors Used: Standard Monitors
--- NOTE | 2021-12-29 18:47 | NUR.NOTE ---
pts right arm became itchy about 15 min into her infusion of levofloxacin. it was red . the infusion was stopped .O.R.nurse was notified .Nursing Note:
[2021-12-29] MEDS: Lactated Ringers 1,000 ML 30 ML IV (19:12)
--- NOTE | 2021-12-29 20:00 | APP_PTH ---
PATIENT: Estrella Bermeo LOC: [id number]#:[id number] AGE/SX: 36/F ROOM: RE12/29/[address]: Vladimir Lopez : 1985 BED: A DIS: 12/31/2021 SPEC #: [id number] RECD: 12/31/21 12:34 STATUS: MARCIA RESascha #: [id number] DEIRDRE: 12/29/21 20:[address]: Vladimir Lopez DEPT: Surgical Specimen RECD BY: Marylin Casas ENTERED: 12/31/21 12:38 SP TYPE: Appendix OTHR DR: German Campa Tissues: 1 - APPENDIX NOT INCIDENTAL 2 - SOFT TISSUE MISC (INC. LIPOMA) Procedures: GROSS AND MICRO LEVEL 4 GROSS AND MICRO LEVEL 3 DECALCIFICATION Comments: [id number]
[2021-12-29] MEDS: Bupivacaine 0.5% Pres-Free 30 ML VIAL (20:21)
[2021-12-29] MEDS: fentaNYL 100 MCG/2 ML VIAL IVP (20:51)
--- NOTE | 2021-12-29 21:12 | W.ANESPOSTOP ---
Postoperative Evaluation Date, Time and Location Date Performed: 12/29/21 Time Performed: 20:12 Patient Location: Day Surgery Unit Vital Signs Most Recent Imported Vital Signs: Most Recent Vital Signs Temp Pulse Resp BP Pulse Ox 36.7 C 80 14 151/93 H 96 12/29/21 21:05 12/29/21 21:05 12/29/21 21:05 12/29/21 21:05 12/29/21 21:05 Pain Score Most Recent Pain Score: Most Recent Pain Score Pain Level 10 12/29/21 20:50 Assessment Mental Status: Awake (Alert & Oriented to Patient Baseline) Airway and Respiratory Function: Patent airway with normal (patient baseline) respiratory exam Cardiovascular Function: Hemodynamically Stable Hydration Status: Adequately Hydrated Nausea & Vomiting: No Nausea or Vomiting Pain: Pain is Moderate or Severe Postoperative Pain Management: Pain being addressed with medication and Ongoing pain, patient will be managed as an inpatient Peripheral Nerve Block: Patient did not receive a nerve block
--- NOTE | 2021-12-29 21:16 | W.PM.OP ---
Date of service: 12/29/21 Operative Note Operative Note PRE-OP DIAGNOSIS: acute appendicitis POST-OP DIAGNOSIS: other (ovarian vein thrombophlebitis) PROCEDURE: Diagnostic Laparoscopy, Laparoscopic appendectomy SURGEON: Vladimir Lopez Refer to Anesthesia Record Procedure Description: The patient gave written consent and was taken to the OR. Anesthesia was administered which was tolerated well. She was positioned supine with right arm tucked. The abdomen was prepped and draped in sterile fashion. A timeout was performed and when we were all in agreement, I started the procedure. At Mg's point a veress needle was used for insufflation. An optiview trocar was used to enter the peritoneal cavity under direct visualization. 4-quadrant diagnostic laparoscopy was performed. No free fluid noted. No peritoneal inflammation. The bowel dilation or irritation noted. Omental adhesions to the mesh repair at the umbilicus were identified. I put in two other trocars under direct visualization. The appendix looked completely normal. I ran the small bowel from ileocecal valve backwards until well-into the mid-proximal jejunum. No Meckel's was found. No adhesions. No twisted or herniated loops. the bowel wall was not inflamed. I inspected the pelvis. The right ovary is surgically absent. No inflammation or free fluid anywhere. The right ovarian vein was very prominent and had suppurative changes around it and when palpated with my graspers, it felt hard and like a cord. I suspect this could be the etiology for her pain. I carefully inspected her Right colon and the loops of sigmoid colon. No obvious inflammation anywhere. No evidence of diverticulitis nor did I see any obvious non-inflamed diverticuli. An unusal nodule was present in the epiploic appendage of the sigmoid colon and had a strange appearance and so I removed it and sent it for path review. Considering no definitively obvious diagnosis and how many surgeries she has had for RLQ and/or pelvic pain, I elected to remove her appendix and did so in usual fashion. Ligasure was used for the mesoappendix and a stapler used across the base of the appendix. It was put in an endocatch bag and removed. I then verified hemostasis which was excellent. I closed the fascia of the 12mm port with 0-Vicryl. The PA closed the skin. Counts were correct. Patient was then taken to PACU in hemodynamically stable condition.
[2021-12-29] MEDS: Lactated Ringers 1,000 ML 75 ML IV (21:48)
[2021-12-29] MEDS: Acetaminophen 500 MG TAB 1000 MG PO (21:48)
[2021-12-29] MEDS: Ketorolac 15 MG/ML VIAL IVP (21:53)
[2021-12-29] MEDS: MORPHine 2 MG/ML SYR IVP ×2 (21:54→23:50)
[2021-12-29] MEDS: Enoxaparin 40 MG/0.4 ML SYR SC (22:58)
[2021-12-29] MEDS: Normal Saline Flush 10 ML SYR IVP (23:50)
[2021-12-30 03:15] VITALS: BP 124/78; PULSE 62; RESP 18; TEMP 36.3; O2SAT 95
[2021-12-30] MEDS: Normal Saline Flush 10 ML SYR IVP ×7 (03:42→22:47)
[2021-12-30] MEDS: Ketorolac 15 MG/ML VIAL IVP ×4 (03:42→22:46)
[2021-12-30] MEDS: Ondansetron 4 MG/2 ML VIAL IVP ×5 (03:43→23:00)
[2021-12-30 07:45] VITALS: BP 121/79; PULSE 67; RESP 12; TEMP 36; O2SAT 96
[2021-12-30] MEDS: MORPHine 2 MG/ML SYR IVP ×3 (08:30→14:16)
--- NOTE | 2021-12-30 09:03 | INITIAL_ITS ---
- If Service Date Differs Date of service: 12/30/21 Time of Service: 09:04 Care Management Initial Assess REASON FOR HOSPITALIZATION:: abdominal pain PAST MEDICAL HISTORY/PAST SURGICAL HISTORY:: All Active Problems (Updated 12/29/21 @ 17:55 by Vladimir Lopez MD). Acute appendicitis (Acute). Nausea vomiting and diarrhea (Acute). Cephalgia (Acute). Headache (Acute). Abdominal pain (Acute). Nausea and vomiting (Acute). Colitis (Acute). Abdominal pain (Acute). Medical History . Abscess, groin. Anxiety. Bipolar disorder. BMI 35.0-35.9,adult. Cholecystitis. Depression. Diarrhea. Dizzy spells. Elevated liver function tests. GERD (gastroesophageal reflux disease). History of cannabis abuse. History of tobacco abuse. Migraine. Obesity. Pelvic pain in female. Restless leg syndrome. Right ovarian cyst. Umbilical hernia. Ventral hernia. Surgical History . Diagnostic Laproscopy. [facility] bilateral ovarian cystectomies. 11/2009. Diagnostic laparoscopy for chronic RLQ pain after LAVH in 2009. EGD - MAC (12/16/16). H/O: hysterectomy. History of umbilical hernia repair (~09/13/19). Hysterectomy, Laproscopic (~11/2009). LAVH, ovarian conservation for dysmenorrhea. Oophrectomy, Right (06/09/15). Laparoscopic RSO with L salpingectomy for R sided pelvic pain. R corpus luteum cyst. no pathology. R wrist cyst removal. 10/2002. S/P laparoscopic cholecystectomy (~11/25/20). Tooth extraction. 07/2014 wisdom teeth extraction PREVIOUS FUNCTIONAL STATUS/SOCIAL/FAMILY SUPPORTS:: Estrella resides in [place], [place] with her , Schuyler. He has 3 children and Estrella has 2 but only one of Estrella's children live with them. Estrella is employed at [employer] and is independent at baseline in the community. They used to receive food stamps but currently do not receive any assistance in the community. CURRENT FUNCTIONAL STATUS:: Estrella was lying in bed with a washcloth over her eyes when CM met with her. Schuyler was with her and was being supportive. Estrella is having a lot of pain, rating it about a 9/10. She has received several different analgesics with varying effectiveness. She did receive morphine but it made her vomit so she is not taking that anymore.Estrella will likely be discharged tomorrow if her pain is able to be controlled. ADVANCE DIRECTIVES:: none on file Has patient been provided with info about the portal/API?: Yes Did the patient sign up for the portal?: Yes (previously) CODE STATUS:: Full Code INSURANCE COVERAGE / FINANCIAL ISSUES:: Medicaid CURRENT HOME/COMMUNITY SERVICES/EQUIPMENT:: none PRIMARY CARE PHYSICIAN:: German Campa POTENTIAL DISCHARGE NEEDS:: Follow up appointments with surgeon and PCP PATIENT/FAMILY EDUCATION NEEDS:: Review of discharge instructions, follow up plan, activity, limitations; discuss [facility] [employer] TRANSPORTATION:: via private vehicle [facility] family PLAN:: Estrella will likley discharge home with no new services. She will follow up with her community providers and plan of care as prescribed and transport with family. CM will continue to support Estrella and her discharge needs.
--- NOTE | 2021-12-30 10:16 | PGE_ITS ---
Date of Service Date of service: 12/30/21 Time of Service: 09:16 Assessment and Plan Assessment and plan (1) Acute appendicitis: Status: Acute Assessment and plan: 36 yo woman POD 1 from lap appendectomy. Stable. I d/w her at bedside that her appendix was normal and there was no other explicitly obvious explanation for her presentation. For those reasons I removed it. I talked with her about my hypothesis that she has a thrombosed ovarian vein on the right which could be causing the pain. Subjectively it seems improved though and other than NSAIDs, there is nothing more to do about it in the absence of her R ovary and uterus. PLAN for today: CLD, adv as tolerated Hopeful DC home tomorrow. Subjective Subjective Interval history since last seen: The pain she presented with she thinks is a little better. Now the pain is on left side at incision. No fevers. Still nauseated and no appetite. Has not vomited. Says she needs her Effexor at the bedside. Exam Narrative Exam Narrative: Gen: Nontoxic and interactive Neuro: AxOx3 Psych: Somewhat tearful affect but otherwise good understanding. Abdomen: Soft, nondistended. Minimal/expected tenderness in LLQ at 12mm incision site. Intact and clean. The RLQ does not seem tender to exam this morning. Objective Last Vital Signs Temp 96.8 F L 12/30/21 07:45 Pulse 67 12/30/21 07:45 Resp 12 12/30/21 07:45 BP 121/79 12/30/21 07:45 Pulse Ox 96 12/30/21 07:45 Laboratory Results - last 24 hr 12/29/21 12/29/21 12/29/21 14:25 14:25 14:36 WBC 11.54 H RBC 5.50 H Hgb 16.2 H Hct 48.9 H MCV 89 MCH 29.5 MCHC 33.1 RDW 13.4 Plt Count 312 MPV 10.9 Immature Gran % 0.3 Neutrophils % 63.8 Lymphocytes % 28.8 Monocytes % 4.4 Eosinophils % 1.7 Basophils % 1.0 Nucleated RBC % 0.0 Absolute Neutrophils 7.36 H Absolute Lymphocytes 3.32 Absolute Monocytes 0.51 Absolute Eosinophils 0.20 Absolute Basophils 0.12 VBG Lactate Sodium 137 Potassium 3.7 Chloride 104 Carbon Dioxide 21.4 Anion Gap 11.6 H BUN 11 Creatinine 1.0 Estimated GFR/1.73 m2 >= 60.00 Glucose 103 Calcium 9.0 Total Bilirubin 0.5 AST 31 ALT 46 Alkaline Phosphatase 149 H Total Protein 8.0 Albumin 3.7 Urine Color Urine Clarity Urine pH Ur Specific [place] Urine Protein Urine Ketones Urine Blood Urine Nitrite Urine Bilirubin Urine Urobilinogen Ur Leukocyte Esterase Urine RBC Urine WBC Ur Epithelial Cells Urine Crystals Urine Bacteria Urine Casts Urine Mucus Urine Other Ur Culture Indicated? Urine Glucose COVID-19 Source Nasal/Nares SARS-CoV-2 (PCR) Negative 12/29/21 12/29/21 15:25 16:15 WBC RBC Hgb Hct MCV MCH MCHC RDW Plt Count MPV Immature Gran % Neutrophils % Lymphocytes % Monocytes % Eosinophils % Basophils % Nucleated RBC % Absolute Neutrophils Absolute Lymphocytes Absolute Monocytes Absolute Eosinophils Absolute Basophils VBG Lactate 0.8 Sodium Potassium Chloride Carbon Dioxide Anion Gap BUN Creatinine Estimated GFR/1.73 m2 Glucose Calcium Total Bilirubin AST ALT Alkaline Phosphatase Total Protein Albumin Urine Color Yellow Urine Clarity Clear Urine pH 6.0 Ur Specific [place] 1.015 Urine Protein 30 H Urine Ketones 40 H Urine Blood Trace-intact H Urine Nitrite Negative Urine Bilirubin Negative Urine Urobilinogen 1.0 H Ur Leukocyte Esterase Negative Urine RBC Negative Urine WBC Negative Ur Epithelial Cells Few Urine Crystals Negative Urine Bacteria Negative Urine Casts Negative Urine Mucus Negative Urine Other Negative Ur Culture Indicated? No Urine Glucose Negative COVID-19 Source SARS-CoV-2 (PCR)
[2021-12-30] MEDS: Venlafaxine 75 MG CAPCR 150 MG PO (10:32)
[2021-12-30] MEDS: Lactated Ringers 1,000 ML 75 ML IV ×2 (10:34→22:44)
[2021-12-30 10:58] LABS: Abs Immature Grans 0.03 10^3/uL (0.0-0.06); Absolute Basophil Count 0.04 10^3/uL (0.0-0.2); Absolute Eosinophil Count 0.01 10^3/uL (0.0-0.7); Absolute Lymphocyte Count 1.88 10^3/uL (1.2-3.4); Absolute Monocyte Count 0.46 10^3/uL (0.1-0.8); Absolute Neutrophil Count 7.28 10^3/uL (1.2-6.7); Basophils % 0.4; Eosinophils % 0.1; HCT 40.4 % (36.0-46.0); HGB 13.2 g/dL (11.2-15.7); Immature Grans % 0.3; Lymphocytes % 19.4; MCH 29.8 pg (27.0-33.0); MCHC 32.7 % (32.0-36.0); MCV 91 fL (80-95); MPV 10.9 fL (8.0-11.0); Monocytes % 4.7; Neutrophils % 75.1; Platelet Count 210 10^3/uL (130-400); RBC 4.43 10^6/uL (3.93-5.22); RDW 13.3 % (11.7-14.6); RDW-SD 44.7 fL
[2021-12-30 11:02] LABS: Anion Gap 7.4 mmol/L (3-11); BUN 8 mg/dL (7-18); CO2 25.6 mmol/L (21.0-32.0); CREATININE 0.9 mg/dL (0.55-1.02); Calcium 8.3 mg/dL (8.5-10.1); Chloride 106 mmol/L (98-107); Glucose 79 mg/dL (74-106); Sodium 139 mmol/L (136-145)
[2021-12-30] MEDS: Docusate Sodium 100 MG CAP PO ×2 (13:09→21:01)
[2021-12-30 13:20] VITALS: O2SAT 97
--- NOTE | 2021-12-30 14:05 | NUR.NOTE ---
Nursing Note: Patient is in severe pain and vomiting, given PRN Morphine and Zofran. Patient is still in severe pain and vomiting. MD notified, MD is not open to ordering new orders at this time, will inform CC.
[2021-12-30 15:08] VITALS: BP 144/89; PULSE 72; RESP 12; TEMP 37.2; O2SAT 95
[2021-12-30] MEDS: Venlafaxine 150 MG CAPCR PO (21:02)
[2021-12-30 21:37] VITALS: RESP 14; O2SAT 96
[2021-12-30] MEDS: Enoxaparin 40 MG/0.4 ML SYR SC (22:50)
[2021-12-30] MEDS: Acetaminophen 500 MG TAB 1000 MG PO (22:51)
[2021-12-30] MEDS: Omeprazole 20 MG CAPCR 40 MG PO (22:51)
[2021-12-31 01:46] VITALS: BP 126/81; PULSE 68; RESP 16; TEMP 36.9; O2SAT 94
[2021-12-31] MEDS: Ketorolac 15 MG/ML VIAL IVP ×2 (03:46→09:36)
[2021-12-31] MEDS: Acetaminophen 500 MG TAB 1000 MG PO ×2 (03:47→09:36)
[2021-12-31] MEDS: Ondansetron 4 MG/2 ML VIAL IVP (03:58)
[2021-12-31] MEDS: Normal Saline Flush 10 ML SYR IVP ×2 (03:59→09:37)
[2021-12-31 07:50] VITALS: BP 152/93; PULSE 65; RESP 20; TEMP 36.8; O2SAT 98
--- NOTE | 2021-12-31 08:25 | PGE_ITS ---
Date of Service Date of service: 12/31/21 Time of Service: 07:25 Assessment and Plan Assessment and plan (1) Acute appendicitis: Status: Acute Assessment and plan: CLear liquid diet for breakfast, will advance as tolerated. Encouraged activity OOB, sitting in the chair and ambulation. Pain well controlled Will consult [employer] given Dr. Lopez findings of ?The right ovarian vein was very prominent and had suppurative changes around it and when palpated with my graspers, it felt hard and like a cord.? I suspect this could be the etiology for her pain Possible d/c home later today. Subjective Subjective Interval history since last seen: Patient reports that the abdominal pain she was experiencing has improved since last night, however has not fully resolved. She denies having any nausea or vomiting. Exam Const General: cooperative, healthy appearing and comfortable Orientation: alert and oriented x3 GI Inspection: normal to inspection and incision (skin a fix in place) Palpation: soft, no guarding and nontender Objective Last Vital Signs Temp 36.9 C 12/31/21 01:46 Pulse 68 12/31/21 01:46 Resp 16 12/31/21 01:46 BP 126/81 12/31/21 01:46 Pulse Ox 94 12/31/21 01:46 Laboratory Results - last 24 hr 12/30/21 12/30/21 10:45 10:45 WBC 9.70 RBC 4.43 Hgb 13.2 D Hct 40.4 MCV 91 MCH 29.8 MCHC 32.7 RDW 13.3 Plt Count 210 MPV 10.9 Immature Gran % 0.3 Neutrophils % 75.1 Lymphocytes % 19.4 Monocytes % 4.7 Eosinophils % 0.1 Basophils % 0.4 Nucleated RBC % 0.0 Absolute Neutrophils 7.28 H Absolute Lymphocytes 1.88 Absolute Monocytes 0.46 Absolute Eosinophils 0.01 Absolute Basophils 0.04 Sodium 139 Potassium 4.0 Chloride 106 Carbon Dioxide 25.6 Anion Gap 7.4 BUN 8 Creatinine 0.9 Estimated GFR/1.73 m2 >= 60.00 Glucose 79 Calcium 8.3 L
[2021-12-31] MEDS: Docusate Sodium 100 MG CAP PO ×2 (08:54→14:04)
[2021-12-31] MEDS: Lactated Ringers 1,000 ML 75 ML IV (12:41)
--- NOTE | 2021-12-31 13:57 | W.PM.DS.N ---
Date of service: 12/31/21 Time of Service: 12:58 DS: Diagnosis Discharge Diagnosis (1) Acute appendicitis: Status: Acute Discharge Plan Disposition Patient Disposition: HOME Condition: Stable Discharge Details Reason For Visit: Ovarien Vein Thrombophlebitis Admit Date/Time: 12/29/21 20:59 Admit Provider: Vladimir Lopez Attending Provider: Vladimir Lopez Primary Care Provider: German Campa Hospital Course Hospital Course: 36-year-old female with a history of GERD and chronic abdominal pain presented to the ER with complaints of right lower quadrant discomfort she subsequently underwent a diagnostic laparoscopy with appendectomy. Following the procedure, over the course of 2 days the patient's pain improved. She was slowly advanced to a regular diet which she tolerated well without any nausea or vomiting. Patient did complain of breakthrough heartburn during her admission and this was treated with Mylanta. Patient had no fevers, chills or night sweats during her admission. Patient will discharge home. She will require follow-up with the surgical office in 2 weeks. Patient will also require follow-up with [facility] regarding findings from surgery. Home Meds and New Rx's Prescriptions: Continued ropinirole 1 MG tablet 2 mg PO HS magnesium oxide 400 mg (241.3 mg magnesium) tablet 400 mg PO HS Label Comments: TK 1 T PO D gabapentin 300 MG capsule 800 mg PO .QHS metoclopramide HCl 10 mg tablet,disintegrating 10 mg PO Q6H PRN (Reason: nausea and vomiting) Qty: 20 0RF ongnhjctvw-uifjvjoqurhkh-hguu 50-325-40 mg capsule 1 cap PO Q4H PRN (Reason: pain) Qty: 14 0RF Rx Instructions: Do not take more than 6 tablets in 24 hours omeprazole 40 mg capsule,delayed release(DR/EC) 40 cap PO HS Label Comments: TAKE 1 CAPSULE BY MOUTH ONCE A DAY venlafaxine 150 MG capsule,extended release 24hr 300 mg PO DAILY acetaminophen [Tylenol] 325 MG tablet 650 mg PO PRN PRN Discharge Instructions Activity:: Activity as Tolerated Equipment/Supplies:: No Equipment Needed Diet:: Normal Diet DS: Summary Time Spent with Patient providing and/or coordinating discharge services: Less than 30 minutes Status at Discharge Functional status at discharge: independent ambulation Overall status at discharge: patient is back to baseline Mental Status: mental status grossly normal Speech and Movement: speech and movement normal Mood: congruent mood Affect: normal affect Exam Psych Mental Status: mental status grossly normal Speech and Movement: speech and movement normal Mood: congruent mood Affect: normal affect DS: Data Vitals/I&O Vitals and I&O: Vital Signs Temperature 36.8 C 12/31/21 07:50 Temperature Source Tympanic 12/31/21 07:50 Pulse 65 12/31/21 07:50 Pulse Rhythm Regular 12/30/21 16:06 Respiratory Rate 20 12/31/21 07:50 Respiratory Effort 12/31/21 04:00 Respiratory Depth Normal 12/31/21 04:00 Respiratory Pattern Normal 12/31/21 04:00 Blood Pressure 152/93 H 12/31/21 07:50 Blood Pressure Position Sitting 12/29/21 14:13 Pulse Oximetry 98 12/31/21 07:50 Respiratory End-tidal CO2 24 12/29/21 20:50 Oxygen Delivery Method Room Air 12/31/21 07:50 Oxygen Flow Rate 0 12/31/21 07:50 Pain Level 0 12/31/21 12:40 Comment 12/31/21 12:40 Intake & Output 12/30/21 12/31/21 12/31/21 18:59 06:59 18:59 Intake Total 1277.5 / 2200.0 922.5 / 2200.0 1231.25 / 1231.25 Output Total 750 / 1950 1200 / 1950 800 / 800 Balance 527.5 / 250.0 -277.5 / 250.0 431.25 / 431.25 Weight 107.2 kg Intake: IV 957.5 / 1880.0 922.5 / 1880.0 991.25 / 991.25 Oral 320 / 320 240 / 240 Output: Urine 400 / 1600 1200 / 1600 800 / 800 Emesis 350 / 350 Other: Urine Color Dark Vanesa Yellow Straw Urine Appearance Clear Clear Clear Urine Odor Strong Normal Normal Comment Void x1 in the toilet. Stool Size Moderate Stool Characteristics Soft Formed Brown Emesis Description Retching Bile Voiding Methods Toilet Toilet Toilet FORMERLY [facility], 1928–1983 All Active Problems (Updated 12/29/21 @ 17:55 by Vladimir Lopez MD) Acute appendicitis (Acute) Nausea vomiting and diarrhea (Acute) Cephalgia (Acute) Headache (Acute) Abdominal pain (Acute) Nausea and vomiting (Acute) Colitis (Acute) Abdominal pain (Acute) Medical History Abscess, groin Anxiety Bipolar disorder BMI 35.0-35.9,adult Cholecystitis Depression Diarrhea Dizzy spells Elevated liver function tests GERD (gastroesophageal reflux disease) History of cannabis abuse History of tobacco abuse Migraine Obesity Pelvic pain in female Restless leg syndrome Right ovarian cyst Umbilical hernia Ventral hernia Surgical History Diagnostic Laproscopy 2002 [facility] bilateral ovarian cystectomies 11/2009. Diagnostic laparoscopy for chronic RLQ pain after LAVH in 2009. EGD - MAC (12/16/16) H/O: hysterectomy History of umbilical hernia repair (~09/13/19) Hysterectomy, Laproscopic (~11/2009) LAVH, ovarian conservation for dysmenorrhea Oophrectomy, Right (06/09/15) Laparoscopic RSO with L salpingectomy for R sided pelvic pain. R corpus luteum cyst. no pathology. R wrist cyst removal 10/2002 S/P laparoscopic cholecystectomy (~11/25/20) Tooth extraction 07/2014 wisdom teeth extraction Social History Smoking/Tobacco Use Status: Current every day Tobacco Type: cigarettes Tobacco: How many years used: 13 Smoking risk assessment performed?: Yes Alcohol Intake: current Alcohol Intake frequency: holidays/special occasions only Alcohol type: beer, wine and hard liquor Drug use: Occasionally Substance use type: marijuana Current gender identity: female Do you feel safe at home: Yes Do you feel safe in your relationship?: Yes
[2021-12-31] MEDS: Mylanta Suspension 30 ML CUP PO (14:05)
--- NOTE | 2021-12-31 15:01 | PDOC.CMDIS ---
- If Service Date Differs Date of service: 12/31/21 Time of Service: 15:02 LACE Index Scoring Tool - Questions: Length of Stay (in days): 2 Acuity (Admit via E.D.?): Yes E.D. Visits: 8 - Answers: Total Score: 9 Risk of Readmission: Low Risk Care Management Discharge Reason for Hospitalization: abdominal pain Discharge Plan: Estrella will discharge home with no new services. She will follow up with her community providers and plan of care as prescribed and transport with family. Patient/Family Education Needs: Review discharge instructions, discuss Ask Me Three.
== END 2021-12-31 15:03 | disposition home or self-care (01) ==
LOC: ER 17:38 → MS 21:24
PROVIDERS: Emergency Medicine; Admitting Provider Student in an Organized Health Care Education/Training Program; Emergency Provider Nurse Practitioner Family; PCP Physician Assistant Medical; Visit Provider Student in an Organized Health Care Education/Training Program
PROC: 0DTJ4ZZ Resection of Appendix, Percutaneous Endoscopic Approach (ICD-10-PCS; CPT 44970; principal; 2021-12-29 18:00)
DX: I80.8 Phlebitis and thrombophlebitis of other sites (principal); R11.2 Nausea with vomiting, unspecified; R19.7 Diarrhea, unspecified; R51.9 Headache, unspecified; F41.9 Anxiety disorder, unspecified; F31.9 Bipolar disorder, unspecified; K21.9 Gastro-esophageal reflux disease without esophagitis; E66.9 Obesity, unspecified; Z68.37 Body mass index [BMI] 37.0-37.9, adult; F17.210 Nicotine dependence, cigarettes, uncomplicated; K36 Other appendicitis
CPT/HCPCS: 44970; 36415; 80048; 80053; 87635; 88305; 93005; 96372; 96374; 96375; 96376; J1650; 74177; 81003; 81015; 83605; 85025; 88304; 88311; 93010; G0378; J1100; J1885; J1956; J2250; J2270; J2405; J3010

== ENCOUNTER 2022-01-24 09:54 | Emergency (ER) | payer MEDICAID, SELFPAY ==
[2022-01-24] VITALS (9 sets, daily range): BP systolic 103–141; BP diastolic 57–97; PULSE 59–92; RESP 10–21; TEMP 37.2; O2SAT 95–98
--- NOTE | 2022-01-24 10:15 | DI.CT_ITS ---
Exam(s) CT HEAD CERVICAL SPINE WO EXAM: CT HEAD CERVICAL SPINE WO CLINICAL HISTORY: syncope, HI, cervical pain. TECHNIQUE: Imaging Protocol: Axial computed tomography images with coronal and sagittal reformatted images were created and reviewed COMPARISON: CT CT HEAD CERVICAL SPINE WO from 08/03/2021 FINDINGS: CT Head: Ventricles and Extra axial spaces: Normal in size and morphology for the patient's age. Hemorrhage: None. Cerebral parenchyma: Normal. Midline shift: None. Brainstem/Cerebellum: Normal. Calvarium: Normal. Visualized Paranasal sinuses/Mastoids: Clear. Soft Tissues: Unremarkable. CT Cervical Spine: Bones: No acute fracture or subluxation. There is straightening of the normal cervical lordosis. Thi s may be due to muscle spasm or patient positioning. Soft Tissues: Unremarkable. Lung Apices: Clear. IMPRESSION: 1. No acute intracranial process. 2. No acute fracture or subluxation in the cervical spine. 3. Results of this exam have been verbally communicated with provider. RADIATION DOSE DELIVERED: 1,550.2mGy.cm Total DLP DATA REPOSITORY: All CT scans at this facility are submitted to the National Radiology Data Registry (NRDR) Dose Index Registry (DIR) with the [employer] (A[employer]). RADIATION OPTIMIZATION: All CT scans at this facility use at least one of these dose optimization te chniques: automated exposure control; mA and/or kV adjustment per patient size (includes targeted exa ms where dose is matched to clinical indication); or iterative reconstruction.
--- NOTE | 2022-01-24 10:15 | DI.CT_ITS ---
Exam(s) CT ABDOMEN PELVIS WO EXAM: CT ABDOMEN PELVIS WO CLINICAL HISTORY: pain, post operative appendectomy, lower abdominal. TECHNIQUE: Imaging Protocol: Axial computed tomography images with coronal and sagittal reformatted images were created and reviewed. COMPARISON: CT ABD PELVIS WITH CONTRAST from 06/05/2015 CT ABD PELVIS WITH CONTRAST from 05/14/2016 CT ABD PELVIS WITH CONTRAST from 04/09/[address] ABDOMEN PELVIS W from 03/11/[address] ABDOMEN PELVIS W from 08/29/[address] ABDOMEN PELVIS W from 03/03/[address] ABDOMEN PELVIS W from 12/29/2021 FINDINGS: ABDOMEN: Lung Bases: There is dependent atelectasis in the lung bases. Liver: Normal density. There is a stable cystic structure seen adjacent to the gallbladder fossa or w ithin the liver. It is unchanged compared to the post cholecystectomy CT scan of 03/03/2021. This was not present prior to the cholecystectomy. The liver is otherwise unremarkable on this noncontrast e xamination. Gallbladder and biliary tract: Status post cholecystectomy. No biliary ductal dilatation. Pancreas: Normal density, no abnormal calcifications or inflammatory process. Spleen: Normal. Kidneys: Normal size, contour and axis.No radiodense stones or obstructive uropathy. No masses seen. Adrenal glands: No mass is seen. Lymph nodes: Within normal limits. Abdominal Aorta: Abdominal portion non-dilated. PELVIS: Bladder:Symmetric distention, no gross wall thickening. Bowel: No obstruction or bowel wall thickening. Status post cholecystectomy. Peritoneal cavity: No ascites, collection or mesenteric inflammatory response. No free air. Reproductive organs: Status post hysterectomy. Bones: Within normal limits. Soft Tissues: Within normal limits. IMPRESSION: 1. No acute abdominal or pelvic process. 2. Results of this exam have been verbally communicated with provider. RADIATION DOSE DELIVERED: 1,265.15mGy.cm Total DLP DATA REPOSITORY: All CT scans at this facility are submitted to the National Radiology Data Registry (NRDR) Dose Index Registry (DIR) with the [employer] (ACR). RADIATION OPTIMIZATION: All CT scans at this facility use at least one of these dose optimization te chniques: automated exposure control; mA and/or kV adjustment per patient size (includes targeted exa ms where dose is matched to clinical indication); or iterative reconstruction.
--- NOTE | 2022-01-24 10:15 | RT.EKG_ITS ---
APPROVED REPORT Exam: Resting ECG Reason for Exam: syncope Patient Location: E HR:59 bpm ECG Measurements Heart Rate 59 AXIS NH 145 P 4 QRSd 99 QRS 3 QT 422 T 29 QTc 420 Conclusion Sinus bradycardia...rate< 60
[2022-01-24] MEDS: Lactated Ringers 1,000 ML 1000 ML IV (10:25)
[2022-01-24 10:42] LABS: Abs Immature Grans 0.02 10^3/uL (0.0-0.06); Absolute Basophil Count 0.08 10^3/uL (0.0-0.2); Absolute Eosinophil Count 0.12 10^3/uL (0.0-0.7); Absolute Monocyte Count 0.41 10^3/uL (0.1-0.8); Absolute Neutrophil Count 6.17 10^3/uL (1.2-6.7); Basophils % 0.9; Eosinophils % 1.3; HCT 46.1 % (36.0-46.0); HGB 15.4 g/dL (11.2-15.7); Immature Grans % 0.2; Lymphocytes % 24.4; MCH 30.3 pg (27.0-33.0); MCHC 33.4 % (32.0-36.0); MCV 91 fL (80-95); MPV 10.7 fL (8.0-11.0); Monocytes % 4.6; Neutrophils % 68.6; Platelet Count 279 10^3/uL (130-400); RBC 5.09 10^6/uL (3.93-5.22); RDW 13.7 % (11.7-14.6); RDW-SD 45.5 fL
--- NOTE | 2022-01-24 10:56 | W.ED.GENAD ---
Discharge Plan Disposition Patient Disposition: HOME Condition: Stable Discharge Details Clinical Impression: Nausea & vomiting, Abdominal pain, Syncope Primary Care Provider: German Campa ED Provider: Marylin Santana Home Meds and New Rx's Prescriptions: New promethazine 25 mg tablet 25 mg PO TID PRNQty: 10 0RF Continued ropinirole 1 MG tablet 2 mg PO HS gabapentin 300 MG capsule 800 mg PO .QHS omeprazole 40 mg capsule,delayed release(DR/EC) 40 cap PO HS Label Comments: TAKE 1 CAPSULE BY MOUTH ONCE A DAY venlafaxine 150 MG capsule,extended release 24hr 300 mg PO DAILY acetaminophen [Tylenol] 325 MG tablet 650 mg PO PRN PRN No Action promethazine 50 mg suppository 50 mg VT Q6H PRN (Reason: nausea and vomiting) Qty: 12 0RF ondansetron 4 mg tablet,disintegrating 4 mg PO Q6H PRN (Reason: nausea and vomiting) Qty: 20 0RF diclofenac sodium 50 mg tablet,delayed release (DR/EC) 50 mg PO Q12H PRNQty: 14 0RF Discharge Instructions Instructions: Syncope (ED), Acute Nausea and Vomiting (ED), Abdominal Pain (ED) Additional Instructions: Please follow-up with [facility] for your gynecology appointment Please follow-up with your primary care physician tomorrow Take Phenergan for nausea and vomiting Clear liquid diet as tolerated, bland diet thereafter No driving until your symptoms have improved Use caution when going from sitting to standing Return should you have new or worsening complaints Referrals: German Campa PA [Primary Care Provider] - Discharge Data Discharge Date/Time-TO BE ENTERED AT DEPARTURE: 01/24/22 14:34 Medical Decision Making Patient appears well, she was monitored on telemetry without any dysrhythmia noted for [address] abdomen and pelvis not show acute abnormality per radiology interpretation my review CT head and cervical spine did not show acute abnormality per radiology interpretation my review I suspect patient has vasovagal syncope secondary to emesis She was fluid resuscitated She received antiemetics and discharged prescription for same She is able to tolerate p.o. at time of discharge Return precautions discussed and patient expressed understanding Will follow up with PCP regarding syncope Potassium supplemented in the emergency department Medical Records Medical records reviewed: Yes I reviewed the patient's medical records. Lab Data Lab results reviewed: Yes I reviewed the patient's lab results. HPI General Date/Time Provider Initiated Documentation: 01/24/22 10:02. HPI Narrative: This 36-year-old female presents with report of abdominal pain, nausea, vomiting. She is status post appendectomy other surgeons note indicates that her appendix actually was normal in appearance and attributed her pain likely to an ovarian vein. She had follow-up with [facility] and appendectomy with referral to department. Predominantly came in secondary to persistent nausea and vomiting with syncopal event this morning after vomiting. She denies any chance of , she status post hysterectomy years ago. She denies any chest pain or shortness of breath. Her did witness patient. Syncope patient is unsure how long the episode lasted. She had tunnel vision prior to event. She has prior history of syncope in the past. She denies any blood in vomitus or stool. She states she has headache and neck pain from the fall. She has abdominal pain that is persistent and worsening per patient. Related Data Home Medications Medication Instructions Recorded Confirmed ropinirole 1 mg tablet 2 mg PO HS 06/08/15 01/25/22 venlafaxine 150 mg 300 mg PO DAILY 12/17/16 01/25/22 capsule,extended release 24 hr acetaminophen 325 mg tablet 650 mg PO PRN PRN 04/16/17 01/25/22 (Tylenol) gabapentin 300 mg capsule 800 mg PO .QHS 05/21/20 01/25/22 omeprazole 40 mg capsule,delayed 40 cap PO HS 12/29/21 01/25/22 release promethazine 25 mg tablet 25 mg PO TID PRN #10 tabs 01/24/22 01/25/22 diclofenac sodium 50 mg 50 mg PO Q12H PRN #14 tabs 01/25/22 tablet,delayed release ondansetron 4 mg disintegrating 4 mg PO Q6H PRN nausea and 01/25/22 tablet vomiting #20 tabs promethazine 50 mg rectal 50 mg VT Q6H PRN nausea and 01/25/22 suppository vomiting #12 ea Previous Rx's Medication Instructions Recorded promethazine 25 mg tablet 25 mg PO TID PRN #10 tabs 01/24/22 diclofenac sodium 50 mg 50 mg PO Q12H PRN #14 tabs 01/25/22 tablet,delayed release ondansetron 4 mg disintegrating 4 mg PO Q6H PRN nausea and 01/25/22 tablet vomiting #20 tabs promethazine 50 mg rectal 50 mg VT Q6H PRN nausea and 01/25/22 suppository vomiting #12 ea Allergies Allergy/AdvReac Type Severity Reaction Status Date / Time Penicillins Allergy Severe Swelling Verified 01/25/22 08:07 in throat granda flavor Allergy Intermediate throat Verified 01/25/22 08:07 bleeds,swelling kiwi Allergy Intermediate throat Verified 01/25/22 08:07 swells latex Allergy Mild rash,swelli Verified 01/25/22 08:07 ng aspirin AdvReac Intermediate stomach Verified 01/25/22 08:07 pain naproxen AdvReac Intermediate Nausea Verified 01/25/22 08:07 sumatriptan [From Imitrex] AdvReac Mild Makes Verified 01/25/22 08:07 headache worse wool Allergy Mild Skin Rash Uncoded 01/25/22 08:07 General Stated Complaint: Abd Prob IVAN: 3 Review of Systems All systems reviewed & are unremarkable except as noted in HPI and below PFSH All Active Problems (Updated 01/25/22 @ 11:15 by Ismael Blackmon NP) Nausea & vomiting (Acute) Abdominal pain (Acute) Syncope (Chronic) Pelvic pain (Acute) Nausea vomiting and diarrhea (Acute) Cephalgia (Acute) Colitis (Acute) Medical History Abdominal pain Anxiety Bipolar disorder Cholecystitis Depression Dizzy spells GERD (gastroesophageal reflux disease) History of cannabis abuse History of tobacco abuse Irritable bowel syndrome (IBS) Migraine Obesity Restless leg syndrome Ventral hernia Surgical History Diagnostic Laproscopy 2003 [facility] bilateral ovarian cystectomies 11/2009. Diagnostic laparoscopy for chronic RLQ pain after LAVH in 2009. EGD - MAC (12/16/16) H/O: hysterectomy History of umbilical hernia repair (~09/13/19) Hysterectomy, Laproscopic (~11/2009) LAVH, ovarian conservation for dysmenorrhea Oophrectomy, Right (06/09/15) Laparoscopic RSO with L salpingectomy for R sided pelvic pain. R corpus luteum cyst. no pathology. R wrist cyst removal 10/2002 S/P laparoscopic cholecystectomy (~11/25/20) Status post appendectomy December 2021 - normal pathology Tooth extraction 07/2014 wisdom teeth extraction Social History Smoking/Tobacco Use Status: Current every day Tobacco Type: cigarettes Tobacco: How many years used: 13 Quit status: not considering quitting Smoking risk assessment performed?: Yes Alcohol Intake: current Alcohol Intake frequency: holidays/special occasions only Alcohol type: beer, wine and hard liquor Drug use: Occasionally Substance use type: marijuana Current gender identity: female Do you feel safe at home: Yes Do you feel safe in your relationship?: Yes Female Reproductive History Menstrual control method: permanent sterilization History History 2 Para 2 Hx # Term Pregnancies Multiple births Hx # Pregnancies Ectopic pregnancies AB induced Hx Number of Living Children AB spontaneous Past Pregnancies Del. Date GA/Weeks # Preg Succ Route Wgt Sex Labor Lgth Anesthesia Location Prov Complic 06/01/02 40 No Yes vaginal 3486.991 g Female [place], [place] 09/13/07 40 No Yes vaginal 4082.331 g Male [place], [place] Exam Const General: cooperative, comfortable and no acute distress Orientation: alert HENMT Head: normal to inspection Other: No visible sign of trauma Eyes Pupils: PERRL EOM: EOM intact bilaterally Neck Other: midline tenderness no visible evidence of trauma Chest Other: No visible sign of trauma Resp Effort & Inspection: normal respiratory effort Auscultation: clear to auscultation bilaterally Cardio Rate: regular rate Rhythm: regular rhythm Other: No murmur GI Inspection: normal to inspection Palpation: tender Other: wound sites without evidence of secondary infection or dehiscence, mild diffuse tenderness, right lower quadrant tenderness No CVA tenderness Back/Spine/Pelvis Back: no CVA tenderness Other: No midline tenderness Skin General skin exam: no rashes or lesions noted Neuro General: patient alert and patient oriented x3 Other: GCS 15, strength and sensation intact distally, ambulatory with a steady gait Extrem General: normal to inspection Course Vital Signs Vital signs: Vital Signs Temperature 37.2 C 01/24/22 09:57 Pulse 92 H 01/24/22 09:57 Respiratory Rate 16 01/24/22 09:57 Blood Pressure 141/97 H 06/30/22 09:57 Pulse Oximetry 98 06/30/22 09:57 Temperature 37.2 C 01/24/22 09:57 Pulse 92 H 01/24/22 09:57 Pulse 59 L 01/24/22 10:40 Respiratory Rate 16 01/24/22 10:40 Respiratory Effort 01/24/22 10:05 Blood Pressure 141/97 H 01/24/22 09:57 Pulse Oximetry 98 01/24/22 09:57 Pain Level 10 01/24/22 10:05 Lab/Test Results Lab/Test Results: Laboratory Tests Range/Units 01/24/22 10:25 WBC (4.4-10.8) 10^3/uL 9.00 RBC (3.93-5.22) 10^6/uL 5.09 Hgb (11.2-15.7) g/dL 15.4 Hct (36.0-46.0) % 46.1 H MCV (80-95) fL 91 MCH (27.0-33.0) pg 30.3 MCHC (32.0-36.0) % 33.4 RDW (11.7-14.6) % 13.7 Plt Count (130-400) 10^3/uL 279 MPV (8.0-11.0) fL 10.7 Immature Gran % 0.2 Neutrophils % 68.6 Lymphocytes % 24.4 Monocytes % 4.6 Eosinophils % 1.3 Basophils % 0.9 Nucleated RBC % (0.0-0.3) % 0.0 Absolute Neutrophils (1.2-6.7) 10^3/uL 6.17 Absolute Lymphocytes (1.2-3.4) 10^3/uL 2.20 Absolute Monocytes (0.1-0.8) 10^3/uL 0.41 Absolute Eosinophils (0.0-0.7) 10^3/uL 0.12 Absolute Basophils (0.0-0.2) 10^3/uL 0.08
[2022-01-24] MEDS: ACETAMINOPHEN 1,000 MG/100 ML BTL 400 MG IVPB (10:57)
[2022-01-24 11:01] LABS: ALT 43 U/L (14-59); AST 14 U/L (15-37); Albumin 3.7 g/dL (3.4-5.0); Alkaline Phosphatase 143 U/L (46-116); Anion Gap 11.9 mmol/L (3-11); BUN 15 mg/dL (7-18); Bilirubin, Total 0.6 mg/dL (0.2-1.0); CO2 22.1 mmol/L (21.0-32.0); CREATININE 1.1 mg/dL (0.55-1.02); Chloride 104 mmol/L (98-107); Estimated GFR 55.89 (mL/min/1.73m2); Glucose 98 mg/dL (74-106); Lipase 46 U/L (73-393); Sodium 138 mmol/L (136-145); Total Protein 7.9 g/dL (6.4-8.2)
--- NOTE | 2022-01-24 11:31 | DI.RAD_ITS ---
Exam(s) XR CHEST 1V IN DI DEPT EXAM: XR CHEST 1V IN DI DEPT CLINICAL HISTORY: syncope, post op TECHNIQUE: 2D digital imaging was performed of the chest. One image was obtained. An AP view was ob tained. COMPARISON: No exams were available for comparison FINDINGS: MEDIASTINUM: Normal. HEART: Normal. PULMONARY VASCULATURE: Normal. LUNGS: Clear. PLEURAL SPACE: No pleural effusion or pneumothorax. BONE:Within normal limits for the patient's age. OTHER FINDINGS:Normal. IMPRESSION: No acute pulmonary findings. DATA REPOSITORY: RADIATION DOSE DELIVERED:
== END 2022-01-24 14:34 | disposition home or self-care (01) ==
PROVIDERS: Emergency Provider Physician Assistant; PCP Physician Assistant Medical
DX: R10.84 Generalized abdominal pain (principal); R11.2 Nausea with vomiting, unspecified; R55 Syncope and collapse; F17.210 Nicotine dependence, cigarettes, uncomplicated
CPT/HCPCS: 36415; 80053; 83690; 93005; 96365; 96367; 99284; 70450; 71045; 72125; 74176; 83735; 85025; 93010; J0131

== ENCOUNTER 2022-01-25 08:01 | Emergency (ER) | payer MEDICAID, SELFPAY ==
[2022-01-25] VITALS (18 sets, daily range): BP systolic 112–144; BP diastolic 67–107; PULSE 54–87; RESP 11–20; TEMP 36.7; O2SAT 95–100
[2022-01-25] MEDS: Normal Saline 1,000 ML 1000 ML IV (08:20)
[2022-01-25] MEDS: diphenhydrAMINE 50 MG/ML VIAL IVP (08:30)
[2022-01-25] MEDS: Ketorolac 15 MG/ML VIAL IVP (08:30)
--- NOTE | 2022-01-25 08:30 | DI.US_ITS ---
Exam(s) US PELVIS TRANSVAGINAL EXAM: US PELVIS TRANSVAGINAL CLINICAL HISTORY: RLQ pain TECHNIQUE: Ultrasound of the pelvis was performed both transabdominal and transvaginal. COMPARISON: US US ABDOMEN from 11/24/2020 FINDINGS: UTERUS: Surgically absent RIGHT OVARY: The right ovary is surgically absent. LEFT OVARY: Measures 4.4 x 2.6 x 4 cm cm Contains a simple unilocular appearing cyst which measures 2.7 x 2.6 by 2.4 cm. CUL-DE-SAC: No free fluid evident. IMPRESSION: 1. There is a 2.7 x 2.6 x 2.4 cm cyst in the left ovary. 2. Right ovary and uterus are surgically absent. 3. No free fluid evident in the adnexal regions and cul-de-sac. DATA REPOSITORY:
[2022-01-25 08:38] LABS: Abs Immature Grans 0.02 10^3/uL (0.0-0.06); Absolute Basophil Count 0.08 10^3/uL (0.0-0.2); Absolute Eosinophil Count 0.14 10^3/uL (0.0-0.7); Absolute Lymphocyte Count 2.08 10^3/uL (1.2-3.4); Absolute Monocyte Count 0.42 10^3/uL (0.1-0.8); Eosinophils % 1.7; HCT 45.7 % (36.0-46.0); Immature Grans % 0.2; Lymphocytes % 24.9; MCH 29.4 pg (27.0-33.0); MCHC 32.8 % (32.0-36.0); MCV 90 fL (80-95); MPV 10.9 fL (8.0-11.0); Neutrophils % 67.2; Platelet Count 277 10^3/uL (130-400); RDW 13.7 % (11.7-14.6); RDW-SD 45.1 fL; WBC 8.34 10^3/uL (4.4-10.8)
--- NOTE | 2022-01-25 08:40 | ED.GENADUL_ITS ---
Discharge Plan Disposition Patient Disposition: HOME Condition: Fair Discharge Details Clinical Impression: Abdominal pain, Nausea & vomiting Primary Care Provider: German Campa ED Provider: Ismael Blackmon Home Meds and New Rx's Prescriptions: New promethazine 50 mg suppository 50 mg IA Q6H PRN (Reason: nausea and vomiting) Qty: 12 0RF ondansetron 4 mg tablet,disintegrating 4 mg PO Q6H PRN (Reason: nausea and vomiting) Qty: 20 0RF diclofenac sodium 50 mg tablet,delayed release (DR/EC) 50 mg PO Q12H PRNQty: 14 0RF Continued ropinirole 1 MG tablet 2 mg PO HS gabapentin 300 MG capsule 800 mg PO .QHS omeprazole 40 mg capsule,delayed release(DR/EC) 40 cap PO HS Label Comments: TAKE 1 CAPSULE BY MOUTH ONCE A DAY venlafaxine 150 MG capsule,extended release 24hr 300 mg PO DAILY acetaminophen [Tylenol] 325 MG tablet 650 mg PO PRN PRN promethazine 25 mg tablet 25 mg PO TID PRNQty: 10 0RF Discharge Instructions Instructions: Acute Nausea and Vomiting (ED), Abdominal Pain (ED) Stand Alone Forms: Work Release Referrals: [facility] [place] - 1 [facility] [Outside] (Please call and request to speak with both interventional radiology and gastroenterology to set up appointments for the referrals sent) Medical Decision Making Patient presenting to the emergency department via EMS for chief complaint of right lower quadrant pain, significant persistent vomiting that is uncontrollable, and some subjective syncope. She states that syncope is mostly related to pain and discomfort or episodes of vomiting. Patient is very well- known to the emergency department was seen here yesterday for work-up for the same complaints. She states that she has not been able to take any of her medications due to the vomiting. She states that she had rectal Phenergan at home and this did not help at all. Patient did have a exploratory lap on December 29 for similar presentation and appendix was removed in spite of its normal appearance only thing found was a possible question of a ovary venous thrombosis which would be atypical given that she is status post hysterectomy and oophorectomy. Physical exam shows anxious female that is tearful, alert and oriented x4 with exquisitely tender right lower quadrant, normal active bowel sounds, otherwise unremarkable exam. Will order labs for screening purposes against yesterday's labs and will perform transvaginal and pelvic ultrasound to review right ovary as all other anatomy has been removed. yesterday CT scan was read as no acute findings/normal. Reviewed all labs and all labs compared to yesterday are improved except for potassium going from 4-3.3. Later when we perform p.o. challenge, if possible, will give p.o. potassium for repletion. Transvaginal/pelvic ultrasound shows a left ovary with a 2.7 cm simple cyst otherwise appropriate blood flow and no other abnormalities noted. Spoke to OB on-call in regards to cyst which she had no emergent recommendations at this time but did state that the women's wellness office would reach out to patient and schedule appointment for next week. We will also place patient on follow-up list for referral to [facility] gastroenterology due to multiple visits to the emergency department and even exploratory surgery with no relief or benefit of discomfort. Further discussed NSAID use with patient and she does states that it causes nausea. Encourage patient to take this with food but will give patient delayed release diclofenac to see if this helps discomfort along with Zofran and rectal Phenergan. After discussion of diagnosis and plan of care patient has no further needs, questions, or concerns and states clear understanding to return to the emergency department for any worsening symptoms. This documentation was generated using [employer] dictation system, please disregard any oddities of phrase or misspellings. Medical Records Medical records reviewed: Yes I reviewed the patient's medical records. Lab Data Lab results reviewed: Yes I reviewed the patient's lab results. HPI General Mode of arrival: EMS . Date/Time Provider Initiated Documentation: 01/25/22 08:06 . Limitations to Documentation: no limitations . Information obtained by: patient, EMS, RN notes reviewed and old records reviewed . History of Present Illness 36 year old F presents to the emergency department with the chief complaint of Abd pain, described as severe and similar to prior episodes, with intensity rated at 10. Quality is described as sharp, and is localized to the abdomen. Patient reports no radiation. Patient started experiencing this day(s) (4) and it has been constant. No relieving factors improve symptom(s), No exacerbating factors reported . Patient notes fever/chills, loss of appetite, malaise and nausea/vomiting. Patient did receive the following treatments prior to arrival, none Related Data Home Medications Medication Instructions Recorded Confirmed ropinirole 1 mg tablet 2 mg PO HS 06/08/15 01/25/22 venlafaxine 150 mg 300 mg PO DAILY 12/17/16 01/25/22 capsule,extended release 24 hr acetaminophen 325 mg tablet 650 mg PO PRN PRN 04/16/17 01/25/22 (Tylenol) gabapentin 300 mg capsule 800 mg PO .QHS 05/21/20 01/25/22 omeprazole 40 mg capsule,delayed 40 cap PO HS 12/29/21 01/25/22 release promethazine 25 mg tablet 25 mg PO TID PRN #10 tabs 01/24/22 01/25/22 diclofenac sodium 50 mg 50 mg PO Q12H PRN #14 tabs 01/25/22 tablet,delayed release ondansetron 4 mg disintegrating 4 mg PO Q6H PRN nausea and 01/25/22 tablet vomiting #20 tabs promethazine 50 mg rectal 50 mg IA Q6H PRN nausea and 01/25/22 suppository vomiting #12 ea Previous Rx's Medication Instructions Recorded promethazine 25 mg tablet 25 mg PO TID PRN #10 tabs 01/24/22 diclofenac sodium 50 mg 50 mg PO Q12H PRN #14 tabs 01/25/22 tablet,delayed release ondansetron 4 mg disintegrating 4 mg PO Q6H PRN nausea and 01/25/22 tablet vomiting #20 tabs promethazine 50 mg rectal 50 mg IA Q6H PRN nausea and 01/25/22 suppository vomiting #12 ea Allergies Allergy/AdvReac Type Severity Reaction Status Date / Time Penicillins Allergy Severe Swelling Verified 01/25/22 08:07 in throat granda flavor Allergy Intermediate throat Verified 01/25/22 08:07 bleeds,swelling kiwi Allergy Intermediate throat Verified 01/25/22 08:07 swells latex Allergy Mild rash,swelli Verified 01/25/22 08:07 ng aspirin AdvReac Intermediate stomach Verified 01/25/22 08:07 pain naproxen AdvReac Intermediate Nausea Verified 01/25/22 08:07 sumatriptan [From Imitrex] AdvReac Mild Makes Verified 01/25/22 08:07 headache worse wool Allergy Mild Skin Rash Uncoded 01/25/22 08:07 General Stated Complaint: Abd Prob IVAN: 3 Review of Systems Constitutional Constitutional: Reports chills, Denies fever(s), Denies headache(s), Reports malaise and Reports poor appetite ENT Ears, Nose, Mouth, and Throat: Denies headache(s) Cardiovascular Cardiovascular: Denies chest pain and Denies dyspnea Respiratory Respiratory: Denies cough and Denies dyspnea Gastrointestinal Gastrointestinal: Reports as per HPI, Reports abdominal pain, Denies melena, Denies change in bowel habits, Denies constipation, Reports diarrhea, Reports nausea and Reports vomiting Genitourinary Genitourinary: Denies dysuria, Denies pelvic pain and Denies vaginal discharge Musculoskeletal Musculoskeletal: Denies back pain Integumentary/Breasts Skin/Breast: Denies rash Neurologic Neurologic: Denies headache(s) Psychiatric Psychiatric: Reports anxiety and Reports depression PFSH All Active Problems (Updated 01/25/22 @ 11:15 by Ismael Blackmon NP) Nausea & vomiting (Acute) Abdominal pain (Acute) Syncope (Chronic) Pelvic pain (Acute) Nausea vomiting and diarrhea (Acute) Cephalgia (Acute) Colitis (Acute) Medical History Abdominal pain Anxiety Bipolar disorder Cholecystitis Depression Dizzy spells GERD (gastroesophageal reflux disease) History of cannabis abuse History of tobacco abuse Irritable bowel syndrome (IBS) Migraine Obesity Restless leg syndrome Ventral hernia Surgical History Diagnostic Laproscopy 2003 [facility] Hosp. bilateral ovarian cystectomies 11/2009. Diagnostic laparoscopy for chronic RLQ pain after LAVH in 2009. EGD - MAC (12/16/16) H/O: hysterectomy History of umbilical hernia repair (~09/13/19) Hysterectomy, Laproscopic (~11/2009) LAVH, ovarian conservation for dysmenorrhea Oophrectomy, Right (06/09/15) Laparoscopic RSO with L salpingectomy for R sided pelvic pain. R corpus luteum cyst. no pathology. R wrist cyst removal 10/2002 S/P laparoscopic cholecystectomy (~11/25/20) Status post appendectomy December 2021 - normal pathology Tooth extraction 07/2014 wisdom teeth extraction Social History Smoking/Tobacco Use Status: Current every day Tobacco Type: cigarettes Tobacco: How many years used: 13 Quit status: not considering quitting Smoking risk assessment performed?: Yes Alcohol Intake: current Alcohol Intake frequency: holidays/special occasions only Alcohol type: beer, wine and hard liquor Drug use: Occasionally Substance use type: marijuana Current gender identity: female Do you feel safe at home: Yes Do you feel safe in your relationship?: Yes Female Reproductive History Menstrual control method: permanent sterilization History History 2 Para 2 Hx # Term Pregnancies Multiple births Hx # Pregnancies Ectopic pregnancies AB induced Hx Number of Living Children AB spontaneous Past Pregnancies Del. Date GA/Weeks # Preg Succ Route Wgt Sex Labor Lgth Anesth esia Location [facility] Compl 06/01/02 40 No Yes vaginal 3486.991 g Female [place], [place] 09/13/07 40 No Yes vaginal 4082.331 g Male [place], [place] Exam Const General: cooperative Orientation: alert, awake and oriented x3 Resp Effort & Inspection: normal respiratory effort and able to speak in complete sentences Auscultation: clear to auscultation bilaterally Cardio Rate: regular rate Rhythm: regular rhythm Heart Sounds: S1 normal and S2 normal GI Palpation: soft, not firm, guarding in the RLQ, no masses, no pulsatile masses, not rigid, no splenomegaly and tender in the RLQ Auscultation: normal bowel sounds Rectal Exam - female: deferred General: deferred Back/Spine/Pelvis Back: no CVA tenderness Neuro General: patient alert, patient awake, patient oriented x3, gait normal and moves all extremities Course Vital Signs Vital signs: Vital Signs Temperature 36.7 C 01/25/22 08:05 Pulse 87 01/25/22 08:05 Respiratory Rate 18 01/25/22 08:05 Blood Pressure 144/107 H 01/25/22 08:05 Pulse Oximetry 98 01/25/22 08:05 Temperature 36.7 C 01/25/22 08:05 Temperature Source Skin 01/25/22 08:05 Pulse 87 01/25/22 08:05 Respiratory Rate 18 01/25/22 08:05 Respiratory Effort Non-Labored 01/25/22 08:08 Blood Pressure 144/107 H 01/25/22 08:05 Blood Pressure Position Sitting 01/25/22 08:05 Pulse Oximetry 98 01/25/22 08:05 Oxygen Delivery Method Room Air 01/25/22 08:05 Oxygen Flow Rate 0 01/25/22 08:05 Pain Level 10 01/25/22 08:05
[2022-01-25 08:42] LABS: Lipase 46 U/L (73-393); Magnesium 1.9 mg/dL (1.8-2.4)
[2022-01-25 08:47] LABS: ALT 37 U/L (14-59); AST 16 U/L (15-37); Albumin 3.6 g/dL (3.4-5.0); Alkaline Phosphatase 131 U/L (46-116); Anion Gap 10.6 mmol/L (3-11); BUN 14 mg/dL (7-18); Bilirubin, Total 0.5 mg/dL (0.2-1.0); CO2 22.4 mmol/L (21.0-32.0); Calcium 8.8 mg/dL (8.5-10.1); Chloride 106 mmol/L (98-107); Glucose 119 mg/dL (74-106); Potassium 3.3 mmol/L (3.5-5.1); Sodium 139 mmol/L (136-145); Total Protein 7.6 g/dL (6.4-8.2)
[2022-01-25 10:49] LABS: Bilirubin Small (Negative); Blood Negative (Negative); Clarity Cloudy (Clear); Glucose Negative (Negative); Ketones 80 mg/dL (Negative); Leukocyte Esterase Negative (Negative); Nitrite Negative (Negative); Specific Gravity >= 1.030 (1.005-1.025); Urobilinogen 0.2 EU/dL (Up TO 0.2); pH 5.5 (5-8)
[2022-01-25 11:11] LABS: Bacteria Few HPF (Negative); C & S Indicated? No; Casts Negative LPF (Negative); Crystals Many Amorphous HPF (Negative); Epithelial Cells Negative HPF (Negative); Mucus Negative (Negative); RBC Negative HPF (0-2); WBC Negative HPF (0-5)
[2022-01-25] MEDS: Ondansetron O.D.T. 4 MG TABEF PO (11:28)
[2022-01-25] MEDS: Potassium Chloride 20 MEQ TABCR PO (11:28)
--- NOTE | 2022-01-25 13:43 | PDOC.ERCMACT ---
- If Service Date Differs Date of service: 01/25/22 Time of Service: 13:43 Care Management Activity Note Estrella presents in the ED for abdominal pain and nausea and vomiting. At the request of ED provider, CM coordinates a [place] [facility] [place] evaluation of abdominal pain and treatment. Estrella has Medicaid for insurance.
== END 2022-01-25 11:29 | disposition home or self-care (01) ==
PROVIDERS: Emergency Provider Nurse Practitioner Family; PCP Physician Assistant Medical
DX: R10.31 Right lower quadrant pain (principal); R11.2 Nausea with vomiting, unspecified; R55 Syncope and collapse; F31.9 Bipolar disorder, unspecified; K21.9 Gastro-esophageal reflux disease without esophagitis; F17.210 Nicotine dependence, cigarettes, uncomplicated; Z79.899 Other long term (current) drug therapy; Z90.710 Acquired absence of both cervix and uterus; Z90.49 Acquired absence of other specified parts of digestive tract
CPT/HCPCS: 36415; 80053; 83690; 96361; 96374; 96375; 99284; 76830; 76856; 81003; 81015; 83735; 85025; J1200; J1885

== ENCOUNTER 2022-05-07 01:58 | Emergency (ER) | payer MEDICAID, SELFPAY ==
--- NOTE | 2022-05-07 02:00 | ED.GENADUL_ITS ---
Discharge Plan Disposition Patient Disposition: HOME Condition: Improving Discharge Details Clinical Impression: Migraine Primary Care Provider: German Campa ED Provider: Mallorie Lilly Home Meds and New Rx's Prescriptions: Continued ropinirole 1 MG tablet 2 mg PO HS gabapentin 300 MG capsule 800 mg PO .QHS omeprazole 40 mg capsule,delayed release(DR/EC) 40 cap PO HS Label Comments: TAKE 1 CAPSULE BY MOUTH ONCE A DAY diclofenac sodium 50 mg tablet,delayed release (DR/EC) 50 mg PO Q12H PRNQty: 14 0RF venlafaxine 150 MG capsule,extended release 24hr 300 mg PO DAILY acetaminophen [Tylenol] 325 MG tablet 650 mg PO PRN PRN Discharge Instructions Instructions: General Headache (ED) Additional Instructions: Drink plenty of fluids and get plenty of rest. Alternate tylenol and motrin as needed and directed for pain. Take the Compazine as needed and directed for nausea and vomiting. Follow-up with your primary care doctor in 1 week. Return to the emergency department with any worsening or new concerning symptoms. Discharge Data Discharge Date/Time-TO BE ENTERED AT DEPARTURE: 05/07/22 03:57 Discharge Physician: Mallorie Lilly Medical Decision Making 0215 -- 37yo F with a history of migraines presents with migraine headache since yesterday afternoon. Admits to photophobia and nausea and vomiting. Patient appears uncomfortable. Her blood pressure is hypertensive but remainder vitals within normal limits. As this is consistent with her usual migraine and she has no report of fever, focal deficits or meningeal signs, history and presentation does not appear consistent with CVA or meningitis. Her allergy list notes naproxen but she is unsure of the allergy. She states she is able to take ibuprofen and does take diclofenac and has no history of allergies. She states she has tolerated Toradol in the past without allergy. Will place an IV, bolus IV fluids and give a dose of IV Tylenol, IV Toradol, IV Decadron, IV Compazine and reassess. 0330 -- Pt feels much better and feels good to go home. Advised to increase fluids and rest. Advised alternate Tylenol Motrin. She was given Compazine to go. Advised to follow up with the primary care doctor for re-evaluation. Usual and customary return precautions given prior to discharge. Medical Records Medical records reviewed: Yes I reviewed the patient's medical records. HPI General Mode of arrival: ambulatory . Date/Time Provider Initiated Documentation: 05/07/22 01:59 . Limitations to Documentation: no limitations . Information obtained by: patient . HPI Narrative: Patient is a 37-year-old female with a history of multiple emergency department visits for headache and abdominal pain presents for migraine. Review of review of records notes that patient has been seen here 20 times for headache related complaints and 20 times for GI-related complaints. Patient states her migraine started yesterday afternoon and she has had no relief with Tylenol. Last dose of Tylenol more than 4 hours ago. She states her headache is frontal and bitemporal. She admits to photophobia. She also admits to nausea, vomiting and neck pain. She denies fever. Related Data Home Medications Medication Instructions Recorded Confirmed ropinirole 1 mg tablet 2 mg PO HS 06/08/15 05/07/22 venlafaxine 150 mg 300 mg PO DAILY 12/17/16 05/07/22 capsule,extended release 24 hr acetaminophen 325 mg tablet 650 mg PO PRN PRN 04/16/17 05/07/22 (Tylenol) gabapentin 300 mg capsule 800 mg PO .QHS 05/21/20 05/07/22 omeprazole 40 mg capsule,delayed 40 cap PO HS 12/29/21 05/07/22 release diclofenac sodium 50 mg 50 mg PO Q12H PRN #14 tabs 01/25/22 05/07/22 tablet,delayed release Previous Rx's Medication Instructions Recorded diclofenac sodium 50 mg 50 mg PO Q12H PRN #14 tabs 01/25/22 tablet,delayed release Allergies Allergy/AdvReac Type Severity Reaction Status Date / Time Penicillins Allergy Severe Swelling Verified 05/07/22 02:08 in throat granda flavor Allergy Intermediate throat Verified 05/07/22 02:08 bleeds,swelling kiwi Allergy Intermediate throat Verified 05/07/22 02:08 swells latex Allergy Mild rash,swelli Verified 05/07/22 02:08 ng aspirin AdvReac Intermediate stomach Verified 05/07/22 02:08 pain naproxen AdvReac Intermediate Nausea Verified 05/07/22 02:08 sumatriptan [From Imitrex] AdvReac Mild Makes Verified 05/07/22 02:08 headache worse wool Allergy Mild Skin Rash Uncoded 05/07/22 02:08 General Stated Complaint: Headache IVAN: 3 Review of Systems All systems reviewed & are unremarkable except as noted in HPI and below Constitutional Constitutional: Reports as per HPI, Denies chills and Denies fever(s) Eyes Eyes: Denies blurry vision ENT Ears, Nose, Mouth, and Throat: Denies dizziness, Denies sore throat and Denies throat swelling Cardiovascular Cardiovascular: Denies chest pain and Denies dyspnea Respiratory Respiratory: Denies cough and Denies dyspnea Gastrointestinal Gastrointestinal: Denies abdominal pain, Denies diarrhea and Denies vomiting Genitourinary Genitourinary: Denies hematuria and Denies dysuria Musculoskeletal Musculoskeletal: Denies back pain and Denies numbness Integumentary/Breasts Skin/Breast: Denies lesions and Denies rash Neurologic Neurologic: Denies dizziness, Denies localized weakness and Denies numbness Allergic/Immunologic Allergic/Immunologic: Denies throat swelling PFSH All Active Problems (Updated 05/07/22 @ 02:52 by Mallorie Lilly DO) Migraine (Chronic) Pelvic pain (Acute) Nausea vomiting and diarrhea (Acute) Cephalgia (Acute) Colitis (Acute) Medical History Abdominal pain Anxiety Bipolar disorder Cholecystitis Depression Dizzy spells GERD (gastroesophageal reflux disease) History of cannabis abuse History of tobacco abuse Irritable bowel syndrome (IBS) Migraine Obesity Restless leg syndrome Ventral hernia Surgical History Diagnostic Laproscopy 2002 Weeks Hosp. bilateral ovarian cystectomies 11/2009. Diagnostic laparoscopy for chronic RLQ pain after LAVH in 2009. EGD - MAC (12/16/16) H/O: hysterectomy History of umbilical hernia repair (~09/13/19) Hysterectomy, Laproscopic (~11/2009) LAVH, ovarian conservation for dysmenorrhea Oophrectomy, Right (06/09/15) Laparoscopic RSO with L salpingectomy for R sided pelvic pain. R corpus luteum cyst. no pathology. R wrist cyst removal 10/2002 S/P laparoscopic cholecystectomy (~11/25/20) Status post appendectomy December 2021 - normal pathology Tooth extraction 07/2014 wisdom teeth extraction Social History Smoking/Tobacco Use Status: Current every day Tobacco Type: cigarettes Tobacco: How many years used: 13 Quit status: not considering quitting Smoking risk assessment performed?: Yes Alcohol Intake: current Alcohol Intake frequency: holidays/special occasions only Alcohol type: beer, wine and hard liquor Drug use: Occasionally Substance use type: marijuana Current gender identity: female Do you feel safe at home: Yes Do you feel safe in your relationship?: Yes Female Reproductive History Menstrual control method: permanent sterilization History History 2 Para 2 Hx # Term Pregnancies Multiple births Hx # Pregnancies Ectopic pregnancies AB induced Hx Number of Living Children AB spontaneous Past Pregnancies Del. Date GA/Weeks # Preg Succ Route Wgt Sex Labor Lgth Anesth esia Location Prov Complic 06/01/02 40 No Yes vaginal 3486.991 g Female [facility] [place], [place] 09/13/07 40 No Yes vaginal 4082.331 g Male [facility], [place] Exam Const General: cooperative, healthy appearing, uncomfortable and no acute distress Orientation: alert, awake and oriented x3 HENMT Head: normal to inspection Face and sinus: normal facial exam Eyes General: appearance normal, both eyes and all related structures Pupils: PERRL EOM: EOM intact bilaterally Neck Neck: normal visual inspection and No submandibular swelling Lymphatic: no lymphadenopathy noted Chest Chest: normal inspection of the chest and no tenderness Resp Effort & Inspection: normal respiratory effort and able to speak in complete sentences Auscultation: clear to auscultation bilaterally Cardio Rate: regular rate Rhythm: regular rhythm GI Inspection: normal to inspection Palpation: soft, not firm, not rigid and nontender Auscultation: normal bowel sounds Back/Spine/Pelvis Thoracic/Lumbar Spine: thoracic and lumbar spine normal to inspection Pelvis: no pain with anterior-posterior compression Skin General skin exam: no rashes or lesions noted Neuro General: patient alert, patient awake, patient oriented x3, moves all extremities and no meningeal signs Cranial Nerves: CN's II-XI intact bilaterally Cognition: normal cognition Speech: speech normal Motor: muscle tone normal throughout and strength 5/5 throughout Sensory Exam: no sensory deficits noted Extrem General: normal to inspection, full ROM, capillary refill normal, no calf tenderness bilaterally and no edema Psych Appearance: grossly normal Mental Status: mental status grossly normal Speech and Movement: speech and movement normal Affect: normal affect
[2022-05-07 02:04] VITALS: BP 155/116; PULSE 84; RESP 16; TEMP 36.6; O2SAT 98
[2022-05-07] MEDS: Normal Saline 1,000 ML 1000 ML IV (02:16)
[2022-05-07] MEDS: Prochlorperazine 10 MG/2 ML VIAL IVP (02:28)
[2022-05-07] MEDS: Dexamethasone 10 MG/ML VIAL IVP (02:29)
[2022-05-07] MEDS: Ketorolac 30 MG/ML VIAL IVP (02:29)
[2022-05-07] MEDS: Normal Saline 50 ML (02:30)
[2022-05-07] MEDS: ACETAMINOPHEN 1,000 MG/100 ML BTL 400 MG IVPB (02:38)
[2022-05-07] MEDS: Prochlorperazine 10 MG TAB 30 MG PO (03:40)
[2022-05-07 03:57] VITALS: BP 102/79; PULSE 69; RESP 17; TEMP 36.5; O2SAT 95
== END 2022-05-07 03:57 | disposition home or self-care (01) ==
PROVIDERS: Emergency Provider Physician Assistant; PCP Physician Assistant Medical
DX: G43.909 Migraine, unspecified, not intractable, without status migrainosus (principal); R03.0 Elevated blood-pressure reading, without diagnosis of hypertension
CPT/HCPCS: 96361; 96374; 96375; 99284; J0131; J0780; J1100; J1885

== ENCOUNTER 2022-05-13 15:46 | Outpatient (REF) | payer MEDICAID, SELFPAY ==
[2022-05-13 19:31] LABS: Abs Immature Grans 0.03 10^3/uL (0.0-0.06); Absolute Eosinophil Count 0.15 10^3/uL (0.0-0.7); Absolute Lymphocyte Count 3.19 10^3/uL (1.2-3.4); Absolute Monocyte Count 0.51 10^3/uL (0.1-0.8); Absolute Neutrophil Count 5.93 10^3/uL (1.2-6.7); Eosinophils % 1.5; HCT 44.6 % (36.0-46.0); HGB 14.7 g/dL (11.2-15.7); Immature Grans % 0.3; Lymphocytes % 32.2; MCH 30.4 pg (27.0-33.0); MCV 92 fL (80-95); Monocytes % 5.1; Neutrophils % 59.9; Platelet Count 302 10^3/uL (130-400); RBC 4.84 10^6/uL (3.93-5.22); RDW 13.8 % (11.7-14.6); RDW-SD 46.9 fL; WBC 9.91 10^3/uL (4.4-10.8)
[2022-05-13 19:48] LABS: ALT 62 U/L (14-59); AST 18 U/L (15-37); Albumin 3.5 g/dL (3.4-5.0); Alkaline Phosphatase 134 U/L (46-116); BUN 14 mg/dL (7-18); Bilirubin, Total 0.1 mg/dL (0.2-1.0); CREATININE 0.9 mg/dL (0.55-1.02); Calcium 8.9 mg/dL (8.5-10.1); Calculated LDL 141 mg/dL (<100); Chloride 102 mmol/L (98-107); Cholesterol 222 mg/dL (<200); Estimated GFR 83.92 (mL/min/1.73m2); Glucose 83 mg/dL (74-106); HDL Cholesterol 49 mg/dL (40-60); Potassium 4.2 mmol/L (3.5-5.1); Sodium 135 mmol/L (136-145); TSH (W/Ref FT4) 3.61 uIU/mL (0.36-3.74); Total Protein 7.5 g/dL (6.4-8.2); Triglyceride 162 mg/dL (<150)
[2022-05-13 19:50] LABS: Hemoglobin A1C 5.6 % (<5.7)
== END 2022-05-13 15:47 | disposition home or self-care (01) ==
LOC: NCHCN 15:46
PROVIDERS: PCP Physician Assistant Medical; Visit Provider Physician Assistant Medical
DX: R79.89 Other specified abnormal findings of blood chemistry (principal); E66.9 Obesity, unspecified
CPT/HCPCS: 80053; 80061; 83036; 84443; 85025

== ENCOUNTER 2022-06-17 09:33 | Emergency (ER) | payer MEDICAID, SELFPAY ==
[2022-06-17 09:37] VITALS: BP 136/85; PULSE 85; RESP 18; TEMP 36.6; O2SAT 98
--- NOTE | 2022-06-17 10:18 | ED.GENADUL_ITS ---
Discharge Plan Disposition Patient Disposition: Home Discharge Details Clinical Impression: Back pain Primary Care Provider: German Campa ED Provider: Margaret Doyle Home Meds and New Rx's Prescriptions: New cyclobenzaprine 10 mg tablet 10 mg PO TID PRNQty: 9 0RF Continued ropinirole 1 MG tablet 2 mg PO HS gabapentin 300 MG capsule 800 mg PO .QHS omeprazole 40 mg capsule,delayed release(DR/EC) 40 cap PO HS Label Comments: TAKE 1 CAPSULE BY MOUTH ONCE A DAY diclofenac sodium 50 mg tablet,delayed release (DR/EC) 50 mg PO Q12H PRNQty: 14 0RF venlafaxine 150 MG capsule,extended release 24hr 300 mg PO DAILY acetaminophen [Tylenol] 325 MG tablet 650 mg PO PRN PRN Discharge Instructions Instructions: Cyclobenzaprine (By mouth), Back Pain (ED) Additional Instructions: Please return immediately to the emergency department if you develop any new or worsening symptoms, if your condition does not improve as expected, or if you become otherwise concerned. It is extremely important that you call soon as possible to make an appointment to be seen in follow-up for this visit by your primary care doctor. Please do not take cyclobenzaprine with alcohol or any other sedating medications. Stand Alone Forms: Work Release Referrals: German Campa PA [Primary Care Provider] - Discharge Data Discharge Date/Time-TO BE ENTERED AT DEPARTURE: 06/17/22 12:46 Medical Decision Making Concern for possible fracture secondary to fall versus sciatica versus contusion versus other. Exam/history at this time is not consistent with cauda equina syndrome, acute emergent chest/abdomen/cervical spine pathology, fever or more distal lower extremity fracture. Plan for x-ray thoracic/lumbar/sacral spine, pelvis x-ray, oxycodone. X-rays negative for acute process per radiology. Patient ambulatory about the emergency department without issue. Plan for Flexeril, outpatient follow-up. I had a discussion with Patient regarding return to emergency department precautions, home care, and importance of outpatient follow-up. Pt verbalizes understanding of the plan and is amenable. Patient discharged to home with clear plan for outpatient follow-up. All questions were answered. Patient being driven home by a book shelver. Disposition decision was made weighing the risks and benefits of hospitalization versus outpatient treatment, the risk for further decompensation, and the patie nt's wishes. Medical Records Medical records reviewed: Yes I reviewed the patient's medical records. Sign Out No HPI General Mode of arrival: ambulatory . Date/Time Provider Initiated Documentation: 06/17/22 09:56 . Limitations to Documentation: no limitations . Information obtained by: patient, RN notes reviewed and old records reviewed . HPI Narrative: Estrella Bermeo is a 37-year-old woman with history of GERD, irritable bowel syndrome, migraine, restless leg, bipolar disorder, anxiety/depression, presenting to the emergency department with lower back pain. Patient reports that for the past 4 days her lower back has been bothering her. 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 Patient reports that this morning she was walking down her steps and slipped, landing on her lower back. Patient reports that since the fall she has had pain shooting into both of her legs and upper spine as well. Has been walking since the fall. Patient reports that when she is still she is not in pain but has pain with any movement. She denies any other pain, fever, cough, shortness of breath, vomiting, diarrhea, weakness, rash. She reports ports chronic numbness in her right hand/wrist that has been intermittent and ongoing for years, currently unchanged. Related Data Home Medications Medication Instructions Recorded Confirmed ropinirole 1 mg tablet 2 mg PO HS 06/08/15 06/17/22 venlafaxine 150 mg 300 mg PO DAILY 12/17/16 06/17/22 capsule,extended release 24 hr acetaminophen 325 mg tablet 650 mg PO PRN PRN 04/16/17 06/17/22 (Tylenol) gabapentin 300 mg capsule 800 mg PO .QHS 05/21/20 06/17/22 omeprazole 40 mg capsule,delayed 40 cap PO HS 12/29/21 06/17/22 release diclofenac sodium 50 mg 50 mg PO Q12H PRN #14 tabs 01/25/22 06/17/22 tablet,delayed release cyclobenzaprine 10 mg tablet 10 mg PO TID PRN #9 tabs 06/17/22 Previous Rx's Medication Instructions Recorded diclofenac sodium 50 mg 50 mg PO Q12H PRN #14 tabs 01/25/22 tablet,delayed release cyclobenzaprine 10 mg tablet 10 mg PO TID PRN #9 tabs 06/17/22 Allergies Allergy/AdvReac Type Severity Reaction Status Date / Time Penicillins Allergy Severe Swelling Verified 06/17/22 09:40 in throat granda flavor Allergy Intermediate throat Verified 06/17/22 09:40 bleeds,swelling kiwi Allergy Intermediate throat Verified 06/17/22 09:40 swells latex Allergy Mild rash,swelli Verified 06/17/22 09:40 ng aspirin AdvReac Intermediate stomach Verified 06/17/22 09:40 pain naproxen AdvReac Intermediate Nausea Verified 06/17/22 09:40 sumatriptan [From Imitrex] AdvReac Mild Makes Verified 06/17/22 09:40 headache worse wool Allergy Mild Skin Rash Uncoded 06/17/22 09:40 General Stated Complaint: Nk/Back Pain IVAN: 3 Review of Systems Narrative: Constitutional: denies fevers Eyes: denies eye pain ENT: denies ear pain, dental pain, sore throat Cardiovascular: denies chest pain, edema Respiratory: denies SOB, cough GI: denies abdominal pain, vomiting, diarrhea : denies flank pain MSK: Reports low back pain, bilateral hip pain, upper back pain, denies neck pain, other arthralgias, myalgias Skin: denies rash Neuro: denies headaches, numbness, weakness PFSH All Active Problems Back pain (Acute) Pelvic pain (Acute) Nausea vomiting and diarrhea (Acute) Cephalgia (Acute) Colitis (Acute) Medical History Abdominal pain Anxiety Bipolar disorder Cholecystitis Depression Dizzy spells GERD (gastroesophageal reflux disease) History of cannabis abuse History of tobacco abuse Irritable bowel syndrome (IBS) Migraine Obesity Restless leg syndrome Ventral hernia Surgical History Diagnostic Laproscopy 2002 Weeks Hosp. bilateral ovarian cystectomies 11/2009. Diagnostic laparoscopy for chronic RLQ pain after LAVH in 2009. EGD - MAC (12/16/16) H/O: hysterectomy History of umbilical hernia repair (~09/13/19) Hysterectomy, Laproscopic (~11/2009) LAVH, ovarian conservation for dysmenorrhea Oophrectomy, Right (06/09/15) Laparoscopic RSO with L salpingectomy for R sided pelvic pain. R corpus luteum cyst. no pathology. R wrist cyst removal 10/2002 S/P laparoscopic cholecystectomy (~11/25/20) Status post appendectomy December 2021 - normal pathology Tooth extraction 07/2014 wisdom teeth extraction Social History Smoking/Tobacco Use Status: Current every day Tobacco Type: cigarettes Tobacco: How many years used: 13 Quit status: not considering quitting Smoking risk assessment performed?: Yes Alcohol Intake: current Alcohol Intake frequency: holidays/special occasions only Alcohol type: beer, wine and hard liquor Drug use: Occasionally Substance use type: marijuana Current gender identity: female Do you feel safe at home: Yes Do you feel safe in your relationship?: Yes Female Reproductive History Menstrual control method: permanent sterilization History History 2 Para 2 Hx # Term Pregnancies Multiple births Hx # Pregnancies Ectopic pregnancies AB induced Hx Number of Living Children AB spontaneous Past Pregnancies Del. Date GA/Weeks # Preg Succ Route Wgt Sex Labor Lgth Anesth esia Location Prov Complic 06/01/02 40 No Yes vaginal 3486.991 g Female [facility] [place] 09/13/07 40 No Yes vaginal 4082.331 g Male [facility] [place], [place] Exam Narrative Exam Narrative: Constitutional: well and [id number], pleasant, conversing normally, patient seated on stretcher sitting upright with legs crossed which she reports is position of comfort HENT: head atraumatic/normocephalic/normal inspection, mucous membranes moist Eyes: conjunctiva normal, sclera normal, pupils 3mm b/l Neck: no stridor, normal ROM, trachea midline Resp: normal work of breathing, speaking in full sentences Cardio: normal rate, normal rhythm GI: abdomen soft, non-tender, non-distended Back: normal inspection, no rash, diffuse tenderness palpation of the thoracic lumbar, and sacral spine without focality/point tenderness, no crepitus, no deformity Skin: warm, dry, normal color, no rash Neuro: alert, not altered, grossly non-focal, motor 5-5 bilateral lower extremities, normal sensation bilateral lower extremities, normal tone, normal gait Ext: no edema, DP pulses intact and symmetric, bilateral hips tender to palpation, bilateral knee is nontender to palpation, no posterior calf tenderness to palpation Psych: normal mood, normal affect, normal behavior Course Vital Signs Vital signs: Vital Signs Temperature 36.6 C 06/17/22 09:37 Pulse 85 06/17/22 09:37 Respiratory Rate 18 06/17/22 09:37 Blood Pressure 136/85 06/17/22 09:37 Pulse Oximetry 98 06/17/22 09:37 Temperature 36.6 C 06/17/22 09:37 Temperature Source Temporal Artery Scan 06/17/22 09:37 Pulse 85 06/17/22 09:37 Respiratory Rate 18 06/17/22 09:37 Respiratory Effort Non-Labored 06/17/22 09:40 Blood Pressure 136/85 06/17/22 09:37 Blood Pressure Position Sitting 06/17/22 09:37 Pulse Oximetry 98 06/17/22 09:37 Oxygen Delivery Method Room Air 06/17/22 09:37 Oxygen Flow Rate 0 06/17/22 09:37
[2022-06-17] MEDS: oxyCODONE 5 MG TAB PO (10:27)
--- NOTE | 2022-06-17 10:58 | DI.RAD_ITS ---
Exam(s) XR PELVIS AP EXAM: XR PELVIS AP CLINICAL HISTORY: trauma, b/l hip pain. TECHNIQUE: 2D digital imaging was performed. COMPARISON: No exams were available for comparison FINDINGS: BONES: No acute fracture is present. No bony destructive lesion is seen. JOINTS: No dislocation present. No joint space narrowing is present. SOFT TISSUE: Suture material seen above right iliac crest. Bowel gas pattern unremarkable. IMPRESSION: Unremarkable radiographs of the pelvis. DATA REPOSITORY: RADIATION DOSE DELIVERED:
--- NOTE | 2022-06-17 10:58 | DI.RAD_ITS ---
Exam(s) XR LUMBAR SPINE COMPLETE EXAM: XR LUMBAR SPINE COMPLETE CLINICAL HISTORY: Trauma, lower back pain. TECHNIQUE: 2D digital imaging was performed. Five views. COMPARISON: No exams were available for comparison FINDINGS: BONES: No fracture or destructive lesion. Vertebral body heights are maintained. No facet hypertroph y identified. DISKS: Intervertebral disc spaces are maintained. ALIGNMENT: Lumbar spinal alignment is within normal limits. SOFT TISSUE: Normal. IMPRESSION: Unremarkable radiographs of the lumbar spine. DATA REPOSITORY: RADIATION DOSE DELIVERED:
--- NOTE | 2022-06-17 10:58 | DI.RAD_ITS ---
Exam(s) XR SACRUM COCCYX EXAM: XR SACRUM COCCYX CLINICAL HISTORY: Trauma, sacral pain. TECHNIQUE: 2D digital imaging was performed. COMPARISON: No exams were available for comparison FINDINGS: BONES: No acute fracture is present. No bony destructive lesion is seen. JOINTS: No dislocation present. SOFT TISSUE: Normal. IMPRESSION: Negative sacrum and coccyx DATA REPOSITORY: RADIATION DOSE DELIVERED:
--- NOTE | 2022-06-17 10:58 | DI.RAD_ITS ---
Exam(s) XR THORACIC SPINE COMPLETE EXAM: XR THORACIC SPINE COMPLETE CLINICAL HISTORY: Trauma, upper back pain. TECHNIQUE: 2D digital imaging was performed. Three views. COMPARISON: No exams were available for comparison FINDINGS: BONES: There is no fracture or destructive lesion. The vertebral bodies and posterior elements are un remarkable. ALIGNMENT: Within normal limits. DISKS: Interverebral disc spaces are maintained. SOFT TISSUE: Visualized lungs are clear. IMPRESSION: Unremarkable radiographs of the thoracic spine. DATA REPOSITORY: RADIATION DOSE DELIVERED:
== END 2022-06-17 12:46 | disposition home or self-care (01) ==
PROVIDERS: Emergency Provider Student in an Organized Health Care Education/Training Program; PCP Physician Assistant Medical
DX: M54.50 Low back pain, unspecified (principal); M25.552 Pain in left hip; M25.551 Pain in right hip; M54.89 Other dorsalgia; X50.0XXA Overexertion from strenuous movement or load, initial encounter
CPT/HCPCS: 99284; 72072; 72110; 72170; 72220; 99283

== ENCOUNTER 2022-07-04 15:34 | Emergency (ER) | payer MEDICAID, SELFPAY ==
[2022-07-04 15:37] VITALS: BP 128/86; PULSE 98; RESP 20; TEMP 36.7; O2SAT 99
--- NOTE | 2022-07-04 16:00 | DI.CT_ITS ---
Exam(s) CT ABDOMEN PELVIS W EXAM: CT ABDOMEN PELVIS W CLINICAL HISTORY: LLQ abd pain TECHNIQUE: Imaging Protocol: Axial computed tomography images with coronal and sagittal reformatted images were created and reviewed CONTRAST MATERIAL: Intravenous: Omnipaque 350 Contrast volume:100 mL Oral: No COMPARISON: CT CT ABDOMEN PELVIS WO from 01/24/2022 FINDINGS: ABDOMEN: Lung Bases: There are dependent atelectatic changes in the lung bases. Liver: Normal density. No measurable mass. Portal, Superior Mesenteric, and Splenic Veins: Unremarkable. Gallbladder and Biliary Tract: Status post cholecystectomy. No biliary ductal dilatation. The stabl e cystic changes adjacent to or within the adjacent liver are unchanged. Pancreas: Normal density, no abnormal calcifications or inflammatory process. Spleen: Normal. Adrenals: No masses seen. Kidneys: Normal size, contour and axis. No radiodense stones or obstructive uropathy. No masses seen. Abdominal Aorta: Abdominal portion non-dilated. Bowel: No obstruction or bowel wall thickening. The patient appears to be status post appendectomy. Peritoneal Cavity: No ascites, collection or mesenteric inflammatory response. No free air. Lymph Nodes: Within normal limits. Bones: Within normal limits for the patient's age. Soft Tissues: There is a small supraumbilical fat containing hernia. PELVIS: Bladder: Symmetric distention, no gross wall thickening. Reproductive Organs: Status post hysterectomy. Follicular cysts are seen on the left ovary. The lar gest measures 3.5 cm. Lymph Nodes: Within normal limits. Bones: Within normal limits for the patient's age. IMPRESSION: 1. Status post hysterectomy. The right ovary is not seen. 2. Left ovarian follicular cysts. The largest measures 3.5 cm. There is continued clinical concern a pelvic ultrasound may be obtained. RADIATION DOSE DELIVERED: 1,378.53mGy.cm Total DLP DATA REPOSITORY: All CT scans at this facility are submitted to the National Radiology Data Registry (NRDR) Dose Index Registry (DIR) with the [employer] ([employer]). RADIATION OPTIMIZATION: All CT scans at this facility use at least one of these dose optimization te chniques: automated exposure control; mA and/or kV adjustment per patient size (includes targeted exa ms where dose is matched to clinical indication); or iterative reconstruction.
[2022-07-04 16:32] LABS: Abs Immature Grans 0.03 10^3/uL (0.0-0.06); Absolute Basophil Count 0.09 10^3/uL (0.0-0.2); Absolute Eosinophil Count 0.16 10^3/uL (0.0-0.7); Absolute Lymphocyte Count 2.81 10^3/uL (1.2-3.4); Absolute Monocyte Count 0.47 10^3/uL (0.1-0.8); Absolute Neutrophil Count 6.33 10^3/uL (1.2-6.7); Basophils % 0.9; Eosinophils % 1.6; HCT 44.3 % (36.0-46.0); HGB 14.8 g/dL (11.2-15.7); Immature Grans % 0.3; Lymphocytes % 28.4; MCH 30.8 pg (27.0-33.0); MCHC 33.4 % (32.0-36.0); MCV 92 fL (80-95); MPV 10.2 fL (8.0-11.0); Monocytes % 4.8; Platelet Count 267 10^3/uL (130-400); RDW 13.3 % (11.7-14.6); RDW-SD 46.1 fL; WBC 9.89 10^3/uL (4.4-10.8)
[2022-07-04] MEDS: Ketorolac 15 MG/ML VIAL IVP (16:35)
[2022-07-04] MEDS: HYDROmorphone 2 MG/ML SYR 0.5 MG IVP ×2 (16:35→19:49)
[2022-07-04] MEDS: Normal Saline 1,000 ML 1000 ML IV (16:35)
[2022-07-04 16:39] LABS: Bilirubin Negative (Negative); Blood Negative (Negative); Clarity Clear (Clear); Glucose Negative (Negative); Ketones Negative (Negative); Leukocyte Esterase Negative (Negative); Nitrite Negative (Negative); Urobilinogen 0.2 EU/dL (Up TO 0.2)
[2022-07-04 17:00] LABS: ALT 30 U/L (14-59); AST 14 U/L (15-37); Albumin 3.7 g/dL (3.4-5.0); Alkaline Phosphatase 114 U/L (46-116); Anion Gap 7.2 mmol/L (3-11); BUN 11 mg/dL (7-18); Bilirubin, Total 0.3 mg/dL (0.2-1.0); CO2 27.8 mmol/L (21.0-32.0); Calcium 8.9 mg/dL (8.5-10.1); Chloride 103 mmol/L (98-107); Estimated GFR 73.95 (mL/min/1.73m2); Glucose 85 mg/dL (74-106); Lipase 58 U/L (73-393); Sodium 138 mmol/L (136-145); Total Protein 7.2 g/dL (6.4-8.2)
[2022-07-04] MEDS: Normal Saline - Diluent 50 ML VIAL IJ (18:28)
[2022-07-04] MEDS: Omnipaque 350 MG/ML 100 ML BTL IJ (18:29)
[2022-07-04] MEDS: Normal Saline Flush 10 ML SYR IVP (18:31)
--- NOTE | 2022-07-04 18:58 | DI.VRAD_ITS ---
PROCEDURE INFORMATION: Exam: CT Abdomen And Pelvis With Contrast Exam date and time: 07/04/2022 6:24 PM Age: 37 years old Clinical indication: Other: Llq abd pain; Patient HX: Hysterectomy, cholecysectomy, appendectomy, umbilical hernia repair TECHNIQUE: Imaging protocol: Computed tomography of the abdomen and pelvis with contrast. Contrast material: OMNIPAQUE 350; Contrast volume: 100 ml; Contrast route: INTRAVENOUS (IV); COMPARISON: CT ABDOMEN PELVIS WO 01/24/2022 11:21 AM FINDINGS: Liver: Low-density hepatic lesions unchanged, probable cysts. Gallbladder and bile ducts: status post cholecystectomy. Pancreas: Normal. No ductal dilation. Spleen: Normal. No splenomegaly. Adrenal glands: Normal. No mass. Kidneys and ureters: Normal. No hydronephrosis. Stomach and bowel: Unremarkable. No obstruction. No mucosal thickening. Appendix: Status post appendectomy. Intraperitoneal space: Trace free fluid. Vasculature: Unremarkable. No abdominal aortic aneurysm. Lymph nodes: Unremarkable. No enlarged lymph nodes. Urinary bladder: Unremarkable as visualized. Reproductive: Status post hysterectomy. Previously seen left ovarian cyst is again identified. There are 2 additional cysts noted. One is more superior and 1 more inferior. The superior focus measures 3 centimetres in the inferior focus measures 2.7 cm. The right ovary is not identified. Bones/joints: Unremarkable. No acute fracture. Soft tissues: Unremarkable. IMPRESSION: Left ovarian cysts. Two of these appear new since previous study. Consider sonography to include color Doppler. Dictated and Authenticated by: Becky Rivera MD. Ordering:DANIELLE Guevara MD
--- NOTE | 2022-07-04 19:41 | W.ED.GENAD ---
Discharge Plan Disposition Patient Disposition: Home Condition: Stable Discharge Details Clinical Impression: Ovarian cyst Primary Care Provider: German Campa ED Provider: Ismael Blackmon Home Meds and New Rx's Prescriptions: Continued methylprednisolone [Medrol (Thad)] 4 mg tablets,dose pack See Rx Instructions PO PER PKG DIR Qty: 21 0RF Rx Instructions: PO PER PKG DIR cyclobenzaprine 10 mg tablet 10 mg PO TID PRN (Reason: muscle spasm) Qty: 9 0RF ropinirole 1 MG tablet 2 mg PO HS gabapentin 300 MG capsule 800 mg PO .QHS omeprazole 40 mg capsule,delayed release(DR/EC) 40 cap PO HS Label Comments: TAKE 1 CAPSULE BY MOUTH ONCE A DAY diclofenac sodium 50 mg tablet,delayed release (DR/EC) 50 mg PO Q12H PRNQty: 14 0RF venlafaxine 150 MG capsule,extended release 24hr 300 mg PO DAILY acetaminophen [Tylenol] 325 MG tablet 650 mg PO PRN PRN No Action oxycodone-acetaminophen 5-325 mg tablet 2 tab PO Q6H MDD 6 PRN (Reason: pain) Qty: 10 0RF Rx Instructions: 1-2 tabs prn severe pain Discharge Instructions Instructions: Ovarian Cyst (ED) Additional Instructions: You have been given a limited supply of narcotics and please use for severe pain. Otherwise you may take [id number] pain medication as needed for further discomfort. We have placed a outpatient ultrasound in for you and you will need to follow-up with Dr. Guerrero for further treatment of your ovarian cyst. If you have any new or significant worsening of symptoms feel free to return the emergency department for reassessment. Referrals: Wendy Guerrero MD [ [facility] STAFF PHYSICIAN] - Discharge Data Discharge Date/Time-TO BE ENTERED AT DEPARTURE: 07/04/22 20:49 Medical Decision Making Patient presenting to the emergency department for chief complaint of left lower quadrant abdominal pain. She states that 2 days ago she thought she ate something that made her stomach upset and had nausea loss of appetite and diarrhea. Her pain and discomfort has continued now causing some vomiting and continued worsening abdominal pain. Patient denies any fever chills, cough or cold symptoms does state that she was seen at the urgent care who did COVID and flu testing which was negative but states that this abdominal pain is similar but a lot worse to previous episodes of ovarian cyst. Patient denies any urinary or vaginal symptoms, denies any blood in stool. Physical exam is unremarkable except for marked tenderness to palpation of the left lower quadrant. We will plan on checking labs and CT imaging due to no availability of ultrasound at this time of evening. Review of labs show a stable CBC with no leukocytosis or shift, CMP is also none worrisome, urinalysis shows no signs of infection or blood. CT imaging does show 3 ovarian cyst all approximately 3 cm in size. One of them was present on earlier scan around January but the other 2 ones are new. Radiologist did recommend Doppler imaging due to findings. Unfortunately this is not available till tomorrow morning so I did contact the field placement director on-call and spoke with Dr. Guerrero. She stated she would come in and evaluate the patient for further treatment and disposition options. After [employer] and consultation plan of care is for patient to be discharged to follow-up on outpatient basis but will obtain ultrasound tomorrow morning. Use orders were placed. Patient given limited supply of narcotic for severe pain and discussed risk versus benefit of narcotic use with patient. After discussion of diagnosis and plan of care patient has no further needs, questions, or concerns and states clear understanding to return to the emergency department for any worsening symptoms. This documentation was generated using [employer] dictation system, please disregard any oddities of phrase or misspellings. Lab Data Lab results reviewed: Yes I reviewed the patient's lab results. Sign Out No HPI General Mode of arrival: ambulatory. Date/Time Provider Initiated Documentation: 07/04/22 15:58. Limitations to Documentation: no limitations. Information obtained by: patient, RN notes reviewed and old records reviewed. History of Present Illness 37 year old F presents to the emergency department with the chief complaint of LLQ abd pain , described as severe and similar to prior episodes, with intensity rated at 8. Quality is described as sharp, and is localized to the abdomen. Patient reports no radiation. Patient started experiencing this day(s) (3) and it has been constant. No relieving factors improve symptom(s), No exacerbating factors reported . Patient notes nausea/vomiting. Patient did receive the following treatments prior to arrival, other (Acetaminophen) Related Data Home Medications Medication Instructions Recorded Confirmed ropinirole 1 mg tablet 2 mg PO HS 06/08/15 07/09/22 venlafaxine 150 mg 300 mg PO DAILY 12/17/16 07/09/22 capsule,extended release 24 hr acetaminophen 325 mg tablet 650 mg PO PRN PRN 04/16/17 07/09/22 (Tylenol) gabapentin 300 mg capsule 800 mg PO .QHS 05/21/20 07/09/22 omeprazole 40 mg capsule,delayed 40 cap PO HS 12/29/21 07/09/22 release diclofenac sodium 50 mg 50 mg PO Q12H PRN #14 tabs 01/25/22 07/09/22 tablet,delayed release cyclobenzaprine 10 mg tablet 10 mg PO TID PRN muscle spasm #9 06/19/22 07/09/22 tabs methylprednisolone 4 mg tablets in See Rx Instructions PO PER PKG DIR 06/19/22 07/05/22 a dose pack (Medrol (Thad)) #21 dose pk oxycodone-acetaminophen 5 mg-325 2 tab PO Q6H PRN pain #10 tabs 07/08/22 07/09/22 mg tablet Previous Rx's Medication Instructions Recorded diclofenac sodium 50 mg 50 mg PO Q12H PRN #14 tabs 01/25/22 tablet,delayed release cyclobenzaprine 10 mg tablet 10 mg PO TID PRN muscle spasm #9 06/19/22 tabs methylprednisolone 4 mg tablets in See Rx Instructions PO PER PKG DIR 06/19/22 a dose pack (Medrol (Thad)) #21 dose pk oxycodone-acetaminophen 5 mg-325 2 tab PO Q6H PRN pain #10 tabs 07/08/22 mg tablet Allergies Allergy/AdvReac Type Severity Reaction Status Date / Time Penicillins Allergy Severe Swelling Verified 07/09/22 13:09 in throat granda flavor Allergy Intermediate throat Verified 07/09/22 13:09 bleeds,swelling kiwi Allergy Intermediate throat Verified 07/09/22 13:09 swells latex Allergy Mild rash,swelli Verified 07/09/22 13:09 ng aspirin AdvReac Intermediate stomach Verified 07/09/22 13:09 pain naproxen AdvReac Intermediate Nausea Verified 07/09/22 13:09 sumatriptan [From Imitrex] AdvReac Mild Makes Verified 07/09/22 13:09 headache worse wool Allergy Mild Skin Rash Uncoded 07/09/22 13:09 General Stated Complaint: Abd Prob IVAN: 4 Review of Systems Constitutional Constitutional: Denies chills, Denies fever(s) and Reports poor appetite Cardiovascular Cardiovascular: Denies chest pain and Denies dyspnea Respiratory Respiratory: Denies cough and Denies dyspnea Gastrointestinal Gastrointestinal: Reports as per HPI, Reports abdominal pain, Denies melena, Denies change in bowel habits, Denies constipation, Denies diarrhea, Reports nausea and Reports vomiting Genitourinary Genitourinary: Denies hematuria, Denies urinary incontinence, Denies urinary hesitancy and Denies urinary urgency Integumentary/Breasts Skin/Breast: Denies rash PFSH All Active Problems Colitis (Acute) Nausea vomiting and diarrhea (Acute) Cephalgia (Acute) Pelvic pain (Acute) Back pain (Acute) Ovarian cyst (Acute) Medical History Abdominal pain Anxiety Bipolar disorder Cholecystitis Depression Dizzy spells GERD (gastroesophageal reflux disease) History of cannabis abuse History of tobacco abuse Irritable bowel syndrome (IBS) Migraine Obesity Restless leg syndrome Ventral hernia Surgical History Diagnostic Laproscopy 2002 [facility]. bilateral ovarian cystectomies 11/2009. Diagnostic laparoscopy for chronic RLQ pain after LAVH in 2009. EGD - MAC (12/16/16) H/O: hysterectomy History of umbilical hernia repair (~09/13/19) Hysterectomy, Laproscopic (~11/2009) LAVH, ovarian conservation for dysmenorrhea Oophrectomy, Right (06/09/15) Laparoscopic RSO with L salpingectomy for R sided pelvic pain. R corpus luteum cyst. no pathology. R wrist cyst removal 10/2002 S/P laparoscopic cholecystectomy (~11/25/20) Status post appendectomy December 2021 - normal pathology Tooth extraction 07/2014 wisdom teeth extraction Social History Smoking/Tobacco Use Status: Current every day Tobacco Type: cigarettes Tobacco: How many years used: 13 Quit status: not considering quitting Smoking risk assessment performed?: Yes Alcohol Intake: current Alcohol Intake frequency: holidays/special occasions only Alcohol type: beer, wine and hard liquor Drug use: Occasionally Substance use type: marijuana Current gender identity: female Do you feel safe at home: Yes Do you feel safe in your relationship?: Yes Female Reproductive History Menstrual control method: permanent sterilization History History 2 Para 2 Hx # Term Pregnancies Multiple births Hx # Pregnancies Ectopic pregnancies AB induced Hx Number of Living Children AB spontaneous Past Pregnancies Del. Date GA/Weeks # Preg Succ Route Wgt Sex Labor Lgth Anesthesia Location Prov Complic 06/01/02 40 No Yes vaginal 3486.991 g Female [place], [place] 09/13/07 39 No Yes vaginal 4082.331 g Male [place], [place] Exam Const General: cooperative Orientation: alert, awake and oriented x3 Resp Effort & Inspection: normal respiratory effort and able to speak in complete sentences Auscultation: clear to auscultation bilaterally Cardio Rate: regular rate Rhythm: regular rhythm Heart Sounds: S1 normal and S2 normal GI Palpation: soft, not firm, no guarding, no masses, no pulsatile masses, not rigid, no splenomegaly and tender in the LLQ Auscultation: normal bowel sounds Back/Spine/Pelvis Back: no CVA tenderness Neuro General: patient alert, patient awake, patient oriented x3, gait normal and moves all extremities Course Vital Signs Vital signs: Vital Signs Temperature 36.7 C 07/04/22 15:37 Pulse 98 H 07/04/22 15:37 Respiratory Rate 20 07/04/22 15:37 Blood Pressure 128/86 07/04/22 15:37 Pulse Oximetry 99 07/04/22 15:37 Temperature 36.7 C 07/04/22 15:37 Pulse 98 H 07/04/22 15:37 Respiratory Rate 20 07/04/22 15:37 Respiratory Effort 07/04/22 16:03 Blood Pressure 128/86 07/04/22 15:37 Blood Pressure Position Sitting 07/04/22 15:37 Pulse Oximetry 99 07/04/22 15:37 Oxygen Delivery Method Room Air 07/04/22 15:37 Oxygen Flow Rate 0 07/04/22 15:37 Pain Level 10 07/04/22 15:37 Lab/Test Results Lab/Test Results: Laboratory Tests Range/Units 07/04/22 07/04/22 07/04/22 16:15 16:20 16:20 WBC (4.4-10.8) 10^3/uL 9.89 RBC (3.93-5.22) 10^6/uL 4.80 Hgb (11.2-15.7) g/dL 14.8 Hct (36.0-46.0) % 44.3 MCV (80-95) fL 92 MCH (27.0-33.0) pg 30.8 MCHC (32.0-36.0) % 33.4 RDW (11.7-14.6) % 13.3 Plt Count (130-400) 10^3/uL 267 MPV (8.0-11.0) fL 10.2 Immature Gran % 0.3 Neutrophils % 64.0 Lymphocytes % 28.4 Monocytes % 4.8 Eosinophils % 1.6 Basophils % 0.9 Nucleated RBC % (0.0-0.3) % 0.0 Absolute Neutrophils (1.2-6.7) 10^3/uL 6.33 Absolute Lymphocytes (1.2-3.4) 10^3/uL 2.81 Absolute Monocytes (0.1-0.8) 10^3/uL 0.47 Absolute Eosinophils (0.0-0.7) 10^3/uL 0.16 Absolute Basophils (0.0-0.2) 10^3/uL 0.09 Sodium (136-145) mmol/L 138 Potassium (3.5-5.1) mmol/L 4.0 Chloride (98-107) mmol/L 103 Carbon Dioxide (21.0-32.0) mmol/L 27.8 Anion Gap (3-11) mmol/L 7.2 BUN (7-18) mg/dL 11 Creatinine (0.55-1.02) mg/dL 1.0 Est GFR (CKD-EPI 2020) (mL/min/1.73m2) 73.95 Glucose (74-106) mg/dL 85 Calcium (8.5-10.1) mg/dL 8.9 Magnesium (1.8-2.4) mg/dL 2.0 Total Bilirubin (0.2-1.0) mg/dL 0.3 AST (15-37) U/L 14 L ALT (14-59) U/L 30 Alkaline Phosphatase (46-116) U/L 114 Total Protein (6.4-8.2) g/dL 7.2 Albumin (3.4-5.0) g/dL 3.7 Lipase (73-393) U/L 58 Urine Color (Yellow) Yellow Urine Clarity (Clear) Clear Urine pH (5-8) 6.0 Ur Specific Sutton (1.005-1.025) 1.020 Urine Protein (Negative) mg/dL Negative Urine Ketones (Negative) mg/dL Negative Urine Blood (Negative) Negative Urine Nitrite (Negative) Negative Urine Bilirubin (Negative) Negative Urine Urobilinogen (Up TO 0.2) EU/dL 0.2 Ur Leukocyte Esterase (Negative) Negative Urine Glucose (Negative) mg/dL Negative
[2022-07-04] MEDS: Ondansetron O.D.T. 4 MG TABEF PO (19:49)
[2022-07-04 19:52] LABS: Source Nasal/Nares
[2022-07-04 20:25] LABS: COVID-19 PCR Negative (Negative)
--- NOTE | 2022-07-04 20:46 | NUR.NOTE ---
Requisition faxed to [facility] for f/u pelvic ultrasound for l ovarian cyst. Patient will f/u with [facility]. Dr Guerrero aware.Nursing Note:
== END 2022-07-04 20:49 | disposition home or self-care (01) ==
PROVIDERS: Emergency Provider Nurse Practitioner Family; PCP Physician Assistant Medical
DX: N83.02 Follicular cyst of left ovary (principal); Z90.721 Acquired absence of ovaries, unilateral; Z20.822 Contact with and (suspected) exposure to COVID-19; Z90.710 Acquired absence of both cervix and uterus; Z90.49 Acquired absence of other specified parts of digestive tract
CPT/HCPCS: 80053; 83690; 87635; 96365; 96366; 96375; 96376; 99285; 74177; 81003; 83735; 85025; 99284; J1170; J1885; J3490

== ENCOUNTER → 2022-07-05 14:23 | Outpatient (CLI) | payer MEDICAID, SELFPAY ==
--- NOTE | 2022-07-05 13:00 | DI.US_ITS ---
Exam(s) US PELVIS TRANSVAGINAL EXAM: US PELVIS TRANSVAGINAL CLINICAL HISTORY: ovarian cyst N83.209 PELVIC AND PERINEAL PAIN R10.2. TECHNIQUE: Transabdominal and transvaginal pelvic ultrasound was performed using standard protocol. COMPARISON: US US PELVIS TRANSVAGINAL from 01/25/[address] ABDOMEN PELVIS W from 07/04/2022 FINDINGS: KIDNEYS: Limited renal evaluation is unremarkable. UTERUS: Status post hysterectomy. OVARIES: Status post right oophorectomy. Left: 6.9 x 3.2 x 8.3 cm Cyst or mass: There are several cysts seen on the left ovary. The largest is a complex cyst measurin g 3.1 x 2.5 x 2.3 cm. This may represent a hemorrhagic cyst. DOPPLER: Color: There is blood flow seen to the left ovary. CUL-DE-SAC: Free fluid: None. Other: None. IMPRESSION: 1. Limited evaluation of the kidneys is unremarkable. 2. Status post hysterectomy and right oophorectomy. 3. Several left ovarian cysts. There is a complex 3.1 x 2.5 x 2.3 cm cyst. This may represent hemor rhagic cyst. A follow-up examination in 6 8 weeks is recommended for re-evaluation. DATA REPOSITORY:
== END ==
PROVIDERS: PCP Physician Assistant Medical; Visit Provider Nurse Practitioner Family
DX: N83.202 Unspecified ovarian cyst, left side (principal); R10.2 Pelvic and perineal pain
CPT/HCPCS: 76830; 76856

== ENCOUNTER 2022-07-10 09:48 | Day surgery (SDC) | payer MEDICAID, SELFPAY ==
[2022-07-10] VITALS (11 sets, daily range): BP systolic 108–161; BP diastolic 72–109; PULSE 58–73; RESP 14–20; TEMP 36.2–36.7; O2SAT 91–100; BMI 35.3
[2022-07-10] MEDS: Lactated Ringers 1,000 ML 125 ML IV (10:51)
[2022-07-10 10:58] LABS: HCT 41.7 % (36.0-46.0); HGB 13.9 g/dL (11.2-15.7)
--- NOTE | 2022-07-10 13:03 | ANES.PREOP_ITS ---
General Info Date of Service Date Performed: 07/10/22 Height: 5 ft 7 in Weight: 102.4 kg Body Mass Index (BMI): 35.3 Surgical Procedure: Operation Date: 07/10/22 12:40 Proposed Procedure Side Surgeon p Diagnostic Laparoscopy, Possible Oopherectomy, Possible Cystectomy Brunilda Altman MD Meds Allergies and Home Medications Allergies Allergy/AdvReac Type Severity Reaction Status Date / Time Penicillins Allergy Severe Swelling Verified 07/10/22 10:21 in throat granda flavor Allergy Intermediate throat Verified 07/10/22 10:21 bleeds,swelling kiwi Allergy Intermediate throat Verified 07/10/22 10:21 swells latex Allergy Mild rash,swelli Verified 07/10/22 10:21 ng aspirin AdvReac Intermediate stomach Verified 07/10/22 10:21 pain naproxen AdvReac Intermediate Nausea Verified 07/10/22 10:21 sumatriptan [From Imitrex] AdvReac Mild Makes Verified 07/10/22 10:21 headache worse wool Allergy Mild Skin Rash Uncoded 07/10/22 10:21 Home Medication Medication Instructions Recorded ropinirole 1 mg tablet 2 mg PO HS 06/08/15 venlafaxine 150 mg 300 mg PO DAILY 12/17/16 capsule,extended release 24 hr acetaminophen 325 mg tablet 650 mg PO PRN PRN 04/16/17 (Tylenol) gabapentin 300 mg capsule 800 mg PO .QHS 05/21/20 omeprazole 40 mg capsule,delayed 40 cap PO HS 12/29/21 release diclofenac sodium 50 mg 50 mg PO Q12H PRN #14 tabs 01/25/22 tablet,delayed release cyclobenzaprine 10 mg tablet 10 mg PO TID PRN muscle spasm #9 06/19/22 tabs methylprednisolone 4 mg tablets in See Rx Instructions PO PER PKG DIR 06/19/22 a dose pack (Medrol (Thad)) #21 dose pk oxycodone-acetaminophen 5 mg-325 2 tab PO Q6H PRN pain #10 tabs 07/08/22 mg tablet Current Visit Medications: Current Medications Generic Name Dose Route Start Last Admin Trade Name Freq PRN Reason Stop Dose Admin Ringer's Solution 1,000 mls @ 125 mls/hr 07/10/22 06:00 07/10/22 10:51 IV 08/08/22 23:59 125 mls/hr INFUSION GEORGE Administration IV Miscellaneous Supplies 1 each 07/10/22 06:00 Iv Access IV 08/08/22 23:59 DIRECTED GEORGE Sodium Chloride 0 ml 07/10/22 06:00 Normal Saline Flush 10 Ml Syr IV 08/08/22 23:59 PRN PRN Sodium Chloride 0 ml 07/10/22 06:00 Normal Saline 10 Ml Vial IJ 08/08/22 23:59 DIRECTED PRN Sterile Water 0 ml 07/10/22 06:00 Water,Injection,Sterile 10 Ml Vial IJ 08/08/22 23:59 DIRECTED PRN PFSH Active Problems Active Problems: Problem Status Onset Code Colitis K52.9 Nausea vomiting and diarrhea R11.2, R19.7 Cephalgia R51.9 Pelvic pain R10.2 Back pain M54.9 Ovarian cyst N83.209 Medical History Medical History Abdominal pain Anxiety Bipolar disorder Cholecystitis Depression Dizzy spells GERD (gastroesophageal reflux disease) History of cannabis abuse History of tobacco abuse Irritable bowel syndrome (IBS) Migraine Obesity Restless leg syndrome Ventral hernia Surgical History Surgical History Diagnostic Laproscopy 2002 Weeks Hosp. bilateral ovarian cystectomies 11/2009. Diagnostic laparoscopy for chronic RLQ pain after LAVH in 2009. EGD - MAC (12/16/16) H/O: hysterectomy History of umbilical hernia repair (~09/13/19) Hysterectomy, Laproscopic (~11/2009) LAVH, ovarian conservation for dysmenorrhea Oophrectomy, Right (06/09/15) Laparoscopic RSO with L salpingectomy for R sided pelvic pain. R corpus luteum cyst. no pathology. R wrist cyst removal 10/2002 S/P laparoscopic cholecystectomy (~11/25/20) Status post appendectomy December 2021 - normal pathology Tooth extraction 07/2014 wisdom teeth extraction Tobacco Smoking/Tobacco Use Status: Current every day Tobacco Type: cigarettes Smoking cigarettes per day: 10 Alcohol Alcohol Intake: current Alcohol intake frequency: holidays/special occasions only Alcohol type: beer, wine and hard liquor Substance Use Substance use: Occasionally Substance use type: marijuana Prental History History 2 Para 2 Hx # Term Pregnancies Multiple births Hx # Pregnancies Ectopic pregnancies AB induced Hx Number of Living Children AB spontaneous Past Pregnancies Del. Date GA/Weeks # Preg Succ Route Wgt Sex Labor Lgth Anesth esia Location Prov Complic 06/01/02 40 No Yes vaginal 3486.991 g Female [place] 09/13/07 40 No Yes vaginal 4082.331 g Male [place] Vital Signs and Lab Results Vital Signs Most Recent Vital Signs in EMR: Most Recent Vital Signs Temp Pulse Resp BP Pulse Ox 36.3 C L 69 16 117/95 H 100 07/10/22 10:15 07/10/22 10:15 07/10/22 10:15 07/10/22 10:15 07/10/22 10:15 Lab Results Result Diagrams: 07/10/22 10:46 Blood Type / Crossmatch: Patient ABO/Rh O Positive 07/10/22 Antibody Screen NEGATIVE 07/10/22 Complete Blood Count: White Blood Count 9.89 10^3/uL (4.4-10.8) 07/04/22 16:20 Red Blood Count 4.80 10^6/uL (3.93-5.22) 07/04/22 16:20 Hemoglobin 13.9 g/dL (11.2-15.7) 07/10/22 10:46 Hematocrit 41.7 % (36.0-46.0) 07/10/22 10:46 Platelet Count 267 10^3/uL (130-400) 07/04/22 16:20 Complete Metabolic Panel: Sodium 138 mmol/L (136-145) 07/04/22 16:20 Potassium 4.0 mmol/L (3.5-5.1) 07/04/22 16:20 Chloride 103 mmol/L (98-107) 07/04/22 16:20 Carbon Dioxide 27.8 mmol/L (21.0-32.0) 07/04/22 16:20 BUN 11 mg/dL (7-18) 07/04/22 16:20 Creatinine 1.0 mg/dL (0.55-1.02) 07/04/22 16:20 Est GFR (CKD-EPI 2020) 73.95 (mL/min/1.73m2) 07/04/22 16:20 Magnesium 2.0 mg/dL (1.8-2.4) 07/04/22 16:20 Calcium 8.9 mg/dL (8.5-10.1) 07/04/22 16:20 Albumin 3.7 g/dL (3.4-5.0) 07/04/22 16:20 Glucose 85 mg/dL (74-106) 07/04/22 16:20 Liver Function Panel: Alanine Aminotransferase (ALT/SGPT) 30 U/L (14-59) 07/04/22 16: 20 Aspartate Amino Transf (AST/SGOT) 14 U/L (15-37) L 07/04/22 16: 20 Coagulation Panel: No Data to Display Cardiac Panel: No Data to Display Arterial Blood Gas: No Data to Display Venous Blood Gas: No Data to Display Pancreas Panel: Lipase 58 U/L (73-393) 07/04/22 16:20 Thyroid Panel: No Data to Display Infectious Disease: Coronavirus (COVID-19)(PCR) Negative (Negative) 07/04/22 19:45 Coronavirus 2019 Source Nasal/Nares 07/04/22 19:45 Blood Cultures: No Data to Display Toxicology Panel: No Data to Display Panel: No Data to Display Imaging and Studies Imaging and Studies Study information below may be from another EMR and interpreted by another provider. Please see original notes in EMR for more complete details. EKG Summary: ECG Measurements Heart Rate 63 AXIS WY 158 P 44 QRSd 104 QRS -3 QT 437 T16 QTc 448 Conclusion Sinus rhythm...normal P axis, V-rate 60- 99 Anesthesia Assessment and Plan Anesthesia History Personal History: No History of Anesthesia Complications Family History: No Family History of Anesthesia Complications Exercise Tolerance Exercise Tolerance: Metabolic Equivalents>4 Pertinent Negatives Pertinent Negatives: No Symptoms of GERD, No Major Cardiovascular Symptoms or Complaints and No Major Pulmonary Symptoms or Complaints Cardiac & Pulmonary Exam Cardiac Exam: Normal S1/S2 Heart Sounds Pulmonary Exam: Clear Bilateral Breath Sounds Implantable Cardiac Device Does patient have a Pacemaker or an ICD?: No Airway Exam Known Difficult Airway: No Mallampati Class: 2 Mouth Opening: Normal (> 3cm) Thyromental Distance: Greater than 3 cm Neck Range of Motion: Full ROM Neck Circumference: Normal Teeth Condition: Normal Dentition ASA Classification ASA Score: ASA 2 Emergency Case?: No NPO Status NPO Status: NPO Clears >2 hours, Solids >8 hours Status Status: History of Hysterectomy Anesthesia Plan Resuscitation Status: Full Code Anesthesia Technique: General Anesthesia Airway Planned: Endotracheal Tube Monitors Used: Standard Monitors
--- NOTE | 2022-07-10 14:45 | OVAR_PTH ---
PATIENT: Estrella Bermeo LOC: [facility] U#:[id number] AGE/SX: 37/F ROOM: RE07/10/[address]: Brunilda Altman MD : [id number] BED: DIS: 07/10/2022 SPEC #: [id number] RECD: 07/10/22 16:25 STATUS: MARCIA RESascha #: [id number] DEIRDRE: 07/10/22 14:[address]: Brunilda Altman DEPT: Surgical Specimen RECD BY: Marylin Casas ENTERED: 07/10/22 16:29 SP TYPE: CLIFF CHASE DR: German Campa Tissues: 1 - OVARY NOT TUMOR W OR W/O TUBES 2 - SOFT TISSUE MISC (INC. LIPOMA) Procedures: GROSS AND MICRO LEVEL 4 Comments: [id number]
[2022-07-10] MEDS: Bupivacaine 0.5% Pres-Free 30 ML VIAL (15:02)
[2022-07-10] MEDS: Normal Saline 10 ML VIAL IJ (15:52)
[2022-07-10] MEDS: HYDROmorphone 2 MG/ML SYR IVP ×2 (15:52→16:05)
[2022-07-10] MEDS: Albuterol/Ipratropium 3 ML UPD VIAL UPD (16:25)
--- NOTE | 2022-07-10 16:30 | W.ANESPOSTOP ---
Postoperative Evaluation Date, Time and Location Date Performed: 07/10/22 Time Performed: 16:30 Patient Location: PACU Vital Signs Most Recent Imported Vital Signs: Most Recent Vital Signs Temp Pulse Resp BP Pulse Ox 36.6 C 69 15 125/85 91 L 07/10/22 16:20 07/10/22 16:20 07/10/22 16:20 07/10/22 16:20 07/10/22 16:20 Pain Score Most Recent Pain Score: Most Recent Pain Score Pain Level 8 07/10/22 16:20 Assessment Mental Status: Awake (Alert & Oriented to Patient Baseline) Airway and Respiratory Function: Patent airway with normal (patient baseline) respiratory exam Cardiovascular Function: Hemodynamically Stable Hydration Status: Adequately Hydrated Nausea & Vomiting: No Nausea or Vomiting Pain: Pain is tolerable per patient Peripheral Nerve Block: Patient did not receive a nerve block Postoperative Comments:: Pt. came in at a 10/10 crying during the preop period. We discussed the balance of narcotic needs with kate to be admitted. She is falling asleep on stretcher and appears much more comfortable than when I saw her in preop. Her SpO2 was 90 and she was given a duoneb with good results. We will encourage coughing as she is motivated to go home tonight.
--- NOTE | 2022-07-10 16:49 | W.PM.OP ---
Date of service: 07/10/22 Time of Service: 14:00 Operative Note Operative Note PRE-OP DIAGNOSIS: Pelvic pain, left ovarian cyst POST-OP DIAGNOSIS: same fibrotic pelvic vessels PROCEDURE: Diagnostic laparoscopy, left oophorectomy SURGEON: Brunilda Altman ASSISTING SURGEON: Wendy Guerrero Refer to Anesthesia Record ESTIMATED BLOOD LOSS: 50 COMPLICATIONS: None Patient was transported to: PACU Patient's condition: stable Indications: Pt developed left lower quadrant pain last week. She was seen in the ED and noted to have an enlarged left ovary with a 3.5cm ovarian cyst but no e/o torsion. When her pain continued into this week we decided to surgically evaluate the pelvis. She also has a h/o hysterectomy and then RSO due to pelvic pain. At the time of a cholecystectomy this summer the gen sx noted fibrotic pelvic vessels and we discussed the possibility of pelvic congestion and maybe the need for a referral to [facility] [place]. Findings: Slightly enlarged left ovary with benign appearing hemorrhagic cyst as well as several smaller cysts. Bilateral firm, white pelvic vessels. Procedure Description: After informed consent was signed the patient was taken to the operating room and given general anesthesia.? She was prepped and draped in a dorsal supine position.? A time out was performed. She emptied her bladder immediately prior to entering the OR. The infraumbilical fold was grasped and injected with 0.25% marcaine with epinephrine. A 12mm incision was made in the infraumbilical fold with the scalpel. A hemostat was used to bluntly dissect the subcuticular layers. The visiport was then assembled and used to enter the abdomen under direct visualization. Once entrance to the abdominal cavity was confirmed the CO2 was turned on and the abdomen was insufflated. Two lateral 5mm ports were then placed under direct visualization. The patient was placed in trendelenburg and the bowels were retracted to expose the left ovary. The above mentioned findings were noted. There was possibly 1 twist of the ovarian vessels but no evidence of decreased blood flow to the ovary. The ligasure device was used to clamp, cauterize and cut through the infundibulo pelvic ligament and release the ovary. The camera was switched to a 5mm camera and a 10mm endo catch bag was inserted. The specimen was placed into the bag and reyes to the umbilical incision. It would not fit through the incision and attempts were made to drain the cysts with a needle but the bag was punctured so a new bag was used to bring the ovary to the umbilical incision once more. This time the ovary was carefully morcellated through the opening until it came through the umbilical incision. The pedacle was inspected and good hemostasis was noted. An area of fibrotic vessel on the right pelvic side wall was pulled away from the wall and cauterized, then cut with the ligasure device to send for pathology evaluation. The ports were removed under direct visualization. The gas was released from the abdomen. The fascia of the umbilical incision was identified and closed with a [id number] suture of 0 vicryl. The skin incisions were then closed with 4-0 vicryl. Mastisol and steristrips were placed. The patient was placed back into the supine position.? She was moved to the stretcher and taken to the recovery room in stable condition.
--- NOTE | 2022-07-10 17:06 | W.PM.DSUDISC ---
Date of service: 07/10/22 Time of Service: 17:00 Discharge Plan Disposition Patient Disposition: Home Condition: Good Discharge Details Attending Provider: Brunilda Altman Primary Care Provider: German Campa Home Meds and New Rx's Prescriptions: No Action methylprednisolone [Medrol (Thad)] 4 mg tablets,dose pack See Rx Instructions PO PER PKG DIR Qty: 21 0RF Rx Instructions: PO PER PKG DIR cyclobenzaprine 10 mg tablet 10 mg PO TID PRN (Reason: muscle spasm) Qty: 9 0RF ropinirole 1 MG tablet 2 mg PO HS oxycodone-acetaminophen 5-325 mg tablet 2 tab PO Q6H MDD 6 PRN (Reason: pain) Qty: 10 0RF Rx Instructions: 1-2 tabs prn severe pain gabapentin 300 MG capsule 800 mg PO .QHS omeprazole 40 mg capsule,delayed release(DR/EC) 40 cap PO HS Label Comments: TAKE 1 CAPSULE BY MOUTH ONCE A DAY diclofenac sodium 50 mg tablet,delayed release (DR/EC) 50 mg PO Q12H PRNQty: 14 0RF venlafaxine 150 MG capsule,extended release 24hr 300 mg PO DAILY acetaminophen [Tylenol] 325 MG tablet 650 mg PO PRN PRN Discharge Instructions Activity:: No heavy lifting x4wks. Remove Dressings/Wound Care:: 24 hours Shower/Bathe:: 24 hours Diet:: As Tolerated Discharge Orders Discharge Orders: Discharge Order (Routine); Ordered 07/10/22 Ordered By: Brunilda Altman
[2022-07-10] MEDS: oxyCODONE 5 mg/Acetaminophen 325 mg TAB PO (17:26)
== END 2022-07-10 17:50 | disposition home or self-care (01) ==
PROVIDERS: PCP Physician Assistant Medical; Visit Provider Obstetrics & Gynecology
PROC: (CPT 49320; principal; 2022-07-10 12:30)
DX: N83.12 Corpus luteum cyst of left ovary (principal); R10.2 Pelvic and perineal pain; F31.9 Bipolar disorder, unspecified; K21.9 Gastro-esophageal reflux disease without esophagitis; E66.9 Obesity, unspecified; Z68.35 Body mass index [BMI] 35.0-35.9, adult
CPT/HCPCS: 58661; 36415; 86850; 86900; 86901; 88305; 85014; 85018; 88304; J0360; J1100; J1170; J2250; J2370; J2405; J3475; J7620

== ENCOUNTER 2022-07-16 09:30 | Emergency (ER) | payer MEDICAID, SELFPAY ==
[2022-07-16] VITALS (14 sets, daily range): BP systolic 134–150; BP diastolic 90–101; PULSE 46–67; RESP 12–30; TEMP 36.8; O2SAT 91–100
--- NOTE | 2022-07-16 09:15 | RT.EKG_ITS ---
APPROVED REPORT Exam: Resting ECG Reason for Exam: syncope Patient Location: E HR:60 bpm ECG Measurements Heart Rate 60 AXIS OK [id number] P [id number] QRSd 96 QRS -3 QT 417 T 18 QTc 418 Conclusion Atrial fibrillation...V-rate 57- 65, irreg A-activity suspect artifact - marita repeat
--- NOTE | 2022-07-16 10:00 | DI.CT_ITS ---
Exam(s) CT HEAD CERVICAL SPINE WO EXAM: CT HEAD CERVICAL SPINE WO CLINICAL HISTORY: pain, fall, syncope. TECHNIQUE: Imaging Protocol: Axial computed tomography images with coronal and sagittal reformatted images were created and reviewed COMPARISON: CT CT HEAD CERVICAL SPINE WO from 01/24/2022 FINDINGS: BRAIN: There are no skull fractures nor fluid in the visualized paranasal sinuses. There is no evidence of intracranial hemorrhage, mass effect, or shift of midline structures. There are no extra-axial fluid collections. The ventricles are not enlarged or shifted and there is no blo od within the ventricular system nor within the basal cisterns. CERVICAL SPINE: There is no evidence of fracture nor listhesis. No significant prevertebral soft tissue swelling. There is no significant facet joint malalignment. No significant osseous lesions evident. IMPRESSION: No acute intracranial findings on this noninfused CT scan of the brain. No evidence of cervical spine fracture, malalignment, nor acute compromise of the cervical spinal can al. RADIATION DOSE DELIVERED: 1,506.23mGy.cm Total DLP DATA REPOSITORY: All CT scans at this facility are submitted to the National Radiology Data Registry (NRDR) Dose Index Registry (DIR) with the [employer] ([employer]). RADIATION OPTIMIZATION: All CT scans at this facility use at least one of these dose optimization te chniques: automated exposure control; mA and/or kV adjustment per patient size (includes targeted exa ms where dose is matched to clinical indication); or iterative reconstruction.
[2022-07-16] MEDS: Lactated Ringers 1,000 ML 1000 ML IV (10:06)
[2022-07-16 10:11] LABS: Abs Immature Grans 0.02 10^3/uL (0.0-0.06); Absolute Basophil Count 0.05 10^3/uL (0.0-0.2); Absolute Eosinophil Count 0.29 10^3/uL (0.0-0.7); Absolute Lymphocyte Count 1.76 10^3/uL (1.2-3.4); Absolute Monocyte Count 0.42 10^3/uL (0.1-0.8); Absolute Neutrophil Count 3.81 10^3/uL (1.2-6.7); Basophils % 0.8; Eosinophils % 4.6; HCT 42.3 % (36.0-46.0); HGB 13.9 g/dL (11.2-15.7); Immature Grans % 0.3; Lymphocytes % 27.7; MCH 30.5 pg (27.0-33.0); MCHC 32.9 % (32.0-36.0); MCV 93 fL (80-95); MPV 10.3 fL (8.0-11.0); Monocytes % 6.6; Platelet Count 260 10^3/uL (130-400); RBC 4.55 10^6/uL (3.93-5.22); RDW 13.9 % (11.7-14.6); RDW-SD 47.8 fL; WBC 6.35 10^3/uL (4.4-10.8)
--- NOTE | 2022-07-16 10:30 | RT.EKG_ITS ---
APPROVED REPORT Exam: Resting ECG Reason for Exam: dizzy Patient Location: E HR:58 bpm ECG Measurements Heart Rate 58 AXIS MS 188 P 25 QRSd 96 QRS 0 QT 432 T 21 QTc 424 Conclusion Sinus bradycardia...rate< 60 Probable lateral infarct, old...Q>35mS, abnormal ST-T, V5-6 I aVL
[2022-07-16 10:36] LABS: ALT 81 U/L (14-59); AST 26 U/L (15-37); Albumin 2.9 g/dL (3.4-5.0); Alkaline Phosphatase 131 U/L (46-116); Anion Gap 5.9 mmol/L (3-11); BUN 11 mg/dL (7-18); Bilirubin, Total 0.3 mg/dL (0.2-1.0); CO2 29.1 mmol/L (21.0-32.0); CREATININE 1.1 mg/dL (0.55-1.02); Calcium 8.3 mg/dL (8.5-10.1); Chloride 104 mmol/L (98-107); Estimated GFR 65.96 (mL/min/1.73m2); Glucose 116 mg/dL (74-106); Magnesium 1.8 mg/dL (1.8-2.4); Potassium 3.8 mmol/L (3.5-5.1); Sodium 139 mmol/L (136-145); TSH (W/Ref FT4) 1.46 uIU/mL (0.36-3.74); Total Protein 6.5 g/dL (6.4-8.2); Troponin I < 50 ng/L (<or=60)
[2022-07-16 10:42] LABS: HCG Qual (Serum) Negative
[2022-07-16 10:43] LABS: D-Dimer 300 ng/mlFEU (<500)
[2022-07-16] MEDS: Ketorolac 15 MG/ML VIAL IVP (12:18)
--- NOTE | 2022-07-16 12:20 | ED.GENADUL_ITS ---
Discharge Plan Disposition Patient Disposition: Home Condition: Stable Discharge Details Clinical Impression: Syncope and collapse, Headache Primary Care Provider: German Campa ED Provider: Steve Doyle Home Meds and New Rx's Prescriptions: Continued cyclobenzaprine 10 mg tablet 10 mg PO TID PRN (Reason: muscle spasm) Qty: 9 0RF ropinirole 1 MG tablet 2 mg PO HS gabapentin 300 MG capsule 800 mg PO .QHS omeprazole 40 mg capsule,delayed release(DR/EC) 40 cap PO HS Label Comments: TAKE 1 CAPSULE BY MOUTH ONCE A DAY diclofenac sodium 50 mg tablet,delayed release (DR/EC) 50 mg PO Q12H PRNQty: 14 0RF venlafaxine 150 MG capsule,extended release 24hr 300 mg PO DAILY acetaminophen [Tylenol] 325 MG tablet 650 mg PO PRN PRN Discharge Instructions Instructions: Dehydration (ED), Syncope (ED) Additional Instructions: Please drink plenty of fluids to stay hydrated and allow for plenty of rest. No driving a motor vehicle or operating heavy machinery until cleared by your doctor. Please contact your primary care physician to arrange follow-up. Call today. Return to the ER immediately for any worsening or new concerning symptoms. Referrals: German Campa PA [Primary Care Provider] - Discharge Orders Other Ambulatory Orders: Holter Monitor (Routine) Timeframe: 1 Week Facility: [facility] - Location: Respiratory Therapy Ordered By: Steve Doyle Discharge Data Discharge Date/Time-TO BE ENTERED AT DEPARTURE: 07/16/22 13:08 Medical Decision Making -- 37-year-old female woke up today and was feeling nauseous, vomited and had a syncopal episode. She fell from standing to the ground. Patient did hit her head. Patient is mentating well. She does have some mild neck tenderness. CT of the head and cervical spine interpreted by radiology, Dr. Dhillon: No acute intracranial hemorrhage, note C-spine fracture. Considered arrhythmia. EKG was reviewed and interpreted by me: Initial EKG with artifact, repeated nondiagnostic. Labs reviewed and nondiagnostic. No anemia. Normal electrolytes. 1254 -- Patient was given IV fluid bolus and Patient was given Toradol 15 mg for her headache. Patient has been observed on athletic monitor here in the emerge department and has had no arrhythmia. Pt reassessed and feeling better. Hemodynamically stable. Plan for discharge with outpatient follow-up. I will order Holter monitor to expedite this outpatient work-up. Patient was referred to call her primary care physician today to arrange timely follow-up. Usual customary discharge instructions reviewed with the patient. Lab Data Lab results reviewed: Yes I reviewed the patient's lab results. Labs: Laboratory Tests Range/Units 07/16/22 07/16/22 07/16/22 10:00 10:00 10:00 WBC (4.4-10.8) 10^3/uL 6.35 RBC (3.93-5.22) 10^6/uL 4.55 Hgb (11.2-15.7) g/dL 13.9 Hct (36.0-46.0) % 42.3 MCV (80-95) fL 93 MCH (27.0-33.0) pg 30.5 MCHC (32.0-36.0) % 32.9 RDW (11.7-14.6) % 13.9 Plt Count (130-400) 10^3/uL 260 MPV (8.0-11.0) fL 10.3 Immature Gran % 0.3 Neutrophils % 60.0 Lymphocytes % 27.7 Monocytes % 6.6 Eosinophils % 4.6 Basophils % 0.8 Nucleated RBC % (0.0-0.3) % 0.0 Absolute Neutrophils (1.2-6.7) 10^3/uL 3.81 Absolute Lymphocytes (1.2-3.4) 10^3/uL 1.76 Absolute Monocytes (0.1-0.8) 10^3/uL 0.42 Absolute Eosinophils (0.0-0.7) 10^3/uL 0.29 Absolute Basophils (0.0-0.2) 10^3/uL 0.05 D-Dimer (<500) ng/mlFEU Sodium (136-145) mmol/L 139 Potassium (3.5-5.1) mmol/L 3.8 Chloride (98-107) mmol/L 104 Carbon Dioxide (21.0-32.0) mmol/L 29.1 Anion Gap (3-11) mmol/L 5.9 BUN (7-18) mg/dL 11 Creatinine (0.55-1.02) mg/dL 1.1 H Est GFR (CKD-EPI 2020) (mL/min/1.73m2) 65.96 Glucose (74-106) mg/dL 116 H Calcium (8.5-10.1) mg/dL 8.3 L Magnesium (1.8-2.4) mg/dL 1.8 Total Bilirubin (0.2-1.0) mg/dL 0.3 AST (15-37) U/L 26 ALT (14-59) U/L 81 H Alkaline Phosphatase (46-116) U/L 131 H Troponin I (<or=60) ng/L < 50 Total Protein (6.4-8.2) g/dL 6.5 Albumin (3.4-5.0) g/dL 2.9 L TSH (0.36-3.74) uIU/mL 1.46 Serum HCG, Qual Negative Range/Units 07/16/22 07/16/22 10:00 10:00 WBC (4.4-10.8) 10^3/uL RBC (3.93-5.22) 10^6/uL Hgb (11.2-15.7) g/dL Hct (36.0-46.0) % MCV (80-95) fL MCH (27.0-33.0) pg MCHC (32.0-36.0) % RDW (11.7-14.6) % Plt Count (130-400) 10^3/uL MPV (8.0-11.0) fL Immature Gran % Neutrophils % Lymphocytes % Monocytes % Eosinophils % Basophils % Nucleated RBC % (0.0-0.3) % Absolute Neutrophils (1.2-6.7) 10^3/uL Absolute Lymphocytes (1.2-3.4) 10^3/uL Absolute Monocytes (0.1-0.8) 10^3/uL Absolute Eosinophils (0.0-0.7) 10^3/uL Absolute Basophils (0.0-0.2) 10^3/uL D-Dimer (<500) ng/mlFEU 300 Sodium (136-145) mmol/L Potassium (3.5-5.1) mmol/L Chloride (98-107) mmol/L Carbon Dioxide (21.0-32.0) mmol/L Anion Gap (3-11) mmol/L BUN (7-18) mg/dL Creatinine (0.55-1.02) mg/dL Est GFR (CKD-EPI 2020) (mL/min/1.73m2) Glucose (74-106) mg/dL Calcium (8.5-10.1) mg/dL Magnesium (1.8-2.4) mg/dL Total Bilirubin (0.2-1.0) mg/dL AST (15-37) U/L ALT (14-59) U/L Alkaline Phosphatase (46-116) U/L Troponin I (<or=60) ng/L Total Protein (6.4-8.2) g/dL Albumin (3.4-5.0) g/dL TSH (0.36-3.74) uIU/mL Cancelled Serum HCG, Qual HPI General Mode of arrival: EMS . Date/Time Provider Initiated Documentation: 07/16/22 09:48 . Limitations to Documentation: no limitations . Information obtained by: patient . HPI Narrative: 37-year-old female with chief complaint that she is generally not feeling well. Symptoms severe with no modifiers. Patient woke up today and was feeling nauseous, vomited and had a syncopal episode. She fell from standing to the ground. Patient did hit her head. She has mild headache. No associated chest pain or shortness of breath. EMS did give Zofran and Tylenol. Related Data Home Medications Medication Instructions Recorded Confirmed ropinirole 1 mg tablet 2 mg PO HS 06/08/15 07/17/22 venlafaxine 150 mg 300 mg PO DAILY 12/17/16 07/17/22 capsule,extended release 24 hr acetaminophen 325 mg tablet 650 mg PO PRN PRN 04/16/17 07/17/22 (Tylenol) gabapentin 300 mg capsule 800 mg PO .QHS 05/21/20 07/17/22 omeprazole 40 mg capsule,delayed 40 cap PO HS 12/29/21 07/17/22 release diclofenac sodium 50 mg 50 mg PO Q12H PRN #14 tabs 01/25/22 07/17/22 tablet,delayed release cyclobenzaprine 10 mg tablet 10 mg PO TID PRN muscle spasm #9 06/19/22 07/17/22 tabs Previous Rx's Medication Instructions Recorded diclofenac sodium 50 mg 50 mg PO Q12H PRN #14 tabs 01/25/22 tablet,delayed release cyclobenzaprine 10 mg tablet 10 mg PO TID PRN muscle spasm #9 06/19/22 tabs Allergies Allergy/AdvReac Type Severity Reaction Status Date / Time Penicillins Allergy Severe Swelling Verified 07/17/22 09:33 in throat granda flavor Allergy Intermediate throat Verified 07/17/22 09:33 bleeds,swelling kiwi Allergy Intermediate throat Verified 07/17/22 09:33 swells latex Allergy Mild rash,swelli Verified 07/17/22 09:33 ng aspirin AdvReac Intermediate stomach Verified 07/17/22 09:33 pain naproxen AdvReac Intermediate Nausea Verified 07/17/22 09:33 sumatriptan [From Imitrex] AdvReac Mild Makes Verified 07/17/22 09:33 headache worse wool Allergy Mild Skin Rash Uncoded 07/17/22 09:33 General Stated Complaint: Dizzy/Sync IVAN: 3 Review of Systems All systems reviewed & are unremarkable except as noted in HPI and below Constitutional Constitutional: Reports fatigue, Denies fever(s), Reports headache(s), Reports lethargy and Reports weakness ENT Ears, Nose, Mouth, and Throat: Reports headache(s) Cardiovascular Cardiovascular: Denies chest pain and Denies dyspnea Respiratory Respiratory: Denies dyspnea Neurologic Neurologic: Reports headache(s) and Reports weakness Endocrine Endocrine: Reports fatigue PFSH All Active Problems Colitis (Acute) Nausea vomiting and diarrhea (Acute) Cephalgia (Acute) Pelvic pain (Acute) Ovarian cyst (Acute) Syncope and collapse (Acute) Headache (Acute) Syncope (Chronic) Chest pain (Acute) Medical History Abdominal pain Anxiety Bipolar disorder Cholecystitis Depression Dizzy spells GERD (gastroesophageal reflux disease) History of cannabis abuse History of tobacco abuse Irritable bowel syndrome (IBS) Migraine Obesity Restless leg syndrome Ventral hernia Surgical History Diagnostic Laproscopy 2002 [facility]. bilateral ovarian cystectomies 11/2009. Diagnostic laparoscopy for chronic RLQ pain after LAVH in 2009. EGD - MAC (12/16/16) H/O: hysterectomy History of umbilical hernia repair (~09/13/19) Hysterectomy, Laproscopic (~11/2009) LAVH, ovarian conservation for dysmenorrhea Oophrectomy, Right (06/09/15) Laparoscopic RSO with L salpingectomy for R sided pelvic pain. R corpus luteum cyst. no pathology. R wrist cyst removal 10/2002 S/P laparoscopic cholecystectomy (~11/25/20) Status post appendectomy December 2021 - normal pathology Tooth extraction 07/2014 wisdom teeth extraction Social History Smoking/Tobacco Use Status: Current every day Tobacco Type: cigarettes Tobacco: How many years used: 13 Quit status: not considering quitting Smoking risk assessment performed?: Yes Alcohol Intake: current Alcohol Intake frequency: holidays/special occasions only Alcohol type: beer, wine and hard liquor Drug use: Occasionally Substance use type: marijuana Current gender identity: female Do you feel safe at home: Yes Do you feel safe in your relationship?: Yes Female Reproductive History Menstrual control method: permanent sterilization History History 2 Para 2 Hx # Term Pregnancies Multiple births Hx # Pregnancies Ectopic pregnancies AB induced Hx Number of Living Children AB spontaneous Past Pregnancies Del. Date GA/Weeks # Preg Succ Route Wgt Sex Labor Lgth Anesth esia Location Prov Complic 06/01/02 40 No Yes vaginal 3486.991 g Female [facility] [place] 09/13/07 40 No Yes vaginal 4082.331 g Male [place] Exam Const General: cooperative HENMT Head: normocephalic Mouth: moist mucous membranes Eyes EOM: EOM intact bilaterally Neck Neck: trachea midline, supple and no midline deformity Resp Auscultation: clear to auscultation bilaterally, no rales, no rhonchi and no wheezes Cardio Rate: regular rate and not tachycardic Rhythm: regular rhythm GI Palpation: soft, not firm, no guarding, no masses, not rigid and nontender Back/Spine/Pelvis Cervical Spine: cervical spinal tenderness Thoracic/Lumbar Spine: thoracic and lumbar spine normal to inspection Skin General skin exam: no rashes or lesions noted Neuro General: patient alert, patient awake, patient oriented x3 and tone normal Extrem General: no edema Psych Appearance: grossly normal Mental Status: mental status grossly normal Speech and Movement: speech and movement normal Course Vital Signs Vital signs: Vital Signs Temperature 36.8 C 07/16/22 09:33 Pulse 56 L 07/16/22 09:33 Respiratory Rate 18 07/16/22 09:33 Blood Pressure 140/97 H 07/16/22 09:33 Pulse Oximetry 100 07/16/22 09:33 Temperature 36.8 C 07/16/22 09:33 Temperature Source Oral 07/16/22 09:33 Pulse 55 L 07/16/22 10:30 Pulse 60 07/16/22 10:31 Respiratory Rate 21 07/16/22 10:31 Respiratory Effort 07/16/22 09:58 Respiratory Depth Normal 07/16/22 09:58 Respiratory Pattern Normal 07/16/22 09:58 Blood Pressure 134/93 H 07/16/22 10:30 Blood Pressure Mean 103 07/16/22 10:30 Blood Pressure Position Sitting 07/16/22 09:33 Pulse Oximetry 93 07/16/22 10:31 Oxygen Delivery Method Room Air 07/16/22 09:33 Oxygen Flow Rate 0 07/16/22 09:33 Lab/Test Results Lab/Test Results: Laboratory Tests Range/Units 07/16/22 07/16/22 07/16/22 10:00 10:00 10:00 WBC (4.4-10.8) 10^3/uL 6.35 RBC (3.93-5.22) 10^6/uL 4.55 Hgb (11.2-15.7) g/dL 13.9 Hct (36.0-46.0) % 42.3 MCV (80-95) fL 93 MCH (27.0-33.0) pg 30.5 MCHC (32.0-36.0) % 32.9 RDW (11.7-14.6) % 13.9 Plt Count (130-400) 10^3/uL 260 MPV (8.0-11.0) fL 10.3 Immature Gran % 0.3 Neutrophils % 60.0 Lymphocytes % 27.7 Monocytes % 6.6 Eosinophils % 4.6 Basophils % 0.8 Nucleated RBC % (0.0-0.3) % 0.0 Absolute Neutrophils (1.2-6.7) 10^3/uL 3.81 Absolute Lymphocytes (1.2-3.4) 10^3/uL 1.76 Absolute Monocytes (0.1-0.8) 10^3/uL 0.42 Absolute Eosinophils (0.0-0.7) 10^3/uL 0.29 Absolute Basophils (0.0-0.2) 10^3/uL 0.05 D-Dimer (<500) ng/mlFEU Sodium (136-145) mmol/L 139 Potassium (3.5-5.1) mmol/L 3.8 Chloride (98-107) mmol/L 104 Carbon Dioxide (21.0-32.0) mmol/L 29.1 Anion Gap (3-11) mmol/L 5.9 BUN (7-18) mg/dL 11 Creatinine (0.55-1.02) mg/dL 1.1 H Est GFR (CKD-EPI 2020) (mL/min/1.73m2) 65.96 Glucose (74-106) mg/dL 116 H Calcium (8.5-10.1) mg/dL 8.3 L Magnesium (1.8-2.4) mg/dL 1.8 Total Bilirubin (0.2-1.0) mg/dL 0.3 AST (15-37) U/L 26 ALT (14-59) U/L 81 H Alkaline Phosphatase (46-116) U/L 131 H Troponin I (<or=60) ng/L < 50 Total Protein (6.4-8.2) g/dL 6.5 Albumin (3.4-5.0) g/dL 2.9 L TSH (0.36-3.74) uIU/mL 1.46 Serum HCG, Qual Negative Range/Units 07/16/22 07/16/22 10:00 10:00 WBC (4.4-10.8) 10^3/uL RBC (3.93-5.22) 10^6/uL Hgb (11.2-15.7) g/dL Hct (36.0-46.0) % MCV (80-95) fL MCH (27.0-33.0) pg MCHC (32.0-36.0) % RDW (11.7-14.6) % Plt Count (130-400) 10^3/uL MPV (8.0-11.0) fL Immature Gran % Neutrophils % Lymphocytes % Monocytes % Eosinophils % Basophils % Nucleated RBC % (0.0-0.3) % Absolute Neutrophils (1.2-6.7) 10^3/uL Absolute Lymphocytes (1.2-3.4) 10^3/uL Absolute Monocytes (0.1-0.8) 10^3/uL Absolute Eosinophils (0.0-0.7) 10^3/uL Absolute Basophils (0.0-0.2) 10^3/uL D-Dimer (<500) ng/mlFEU 300 Sodium (136-145) mmol/L Potassium (3.5-5.1) mmol/L Chloride (98-107) mmol/L Carbon Dioxide (21.0-32.0) mmol/L Anion Gap (3-11) mmol/L BUN (7-18) mg/dL Creatinine (0.55-1.02) mg/dL Est GFR (CKD-EPI 2020) (mL/min/1.73m2) Glucose (74-106) mg/dL Calcium (8.5-10.1) mg/dL Magnesium (1.8-2.4) mg/dL Total Bilirubin (0.2-1.0) mg/dL AST (15-37) U/L ALT (14-59) U/L Alkaline Phosphatase (46-116) U/L Troponin I (<or=60) ng/L Total Protein (6.4-8.2) g/dL Albumin (3.4-5.0) g/dL TSH (0.36-3.74) uIU/mL Cancelled Serum HCG, Qual POC- Test(urine) Negative
== END 2022-07-16 13:08 | disposition home or self-care (01) ==
PROVIDERS: Physician Assistant; Emergency Provider Student in an Organized Health Care Education/Training Program; PCP Physician Assistant Medical
DX: R55 Syncope and collapse (principal); G89.11 Acute pain due to trauma; R51.9 Headache, unspecified; F31.9 Bipolar disorder, unspecified; Z20.822 Contact with and (suspected) exposure to COVID-19; W19.XXXA Unspecified fall, initial encounter
CPT/HCPCS: 36415; 80053; 93005; 96361; 96374; 99284; 70450; 72125; 83735; 84443; 84484; 84703; 85025; 85379; 93010; 99285; J1885

== ENCOUNTER 2022-07-17 09:22 | Emergency (ER) | payer MEDICAID, SELFPAY ==
[2022-07-17] VITALS (10 sets, daily range): BP systolic 141–159; BP diastolic 85–105; PULSE 57–77; RESP 10–19; TEMP 36.6; O2SAT 95–100
--- NOTE | 2022-07-17 09:15 | RT.EKG_ITS ---
APPROVED REPORT Exam: Resting ECG Reason for Exam: chest pain Patient Location: E HR:52 bpm ECG Measurements Heart Rate 52 AXIS MA 173 P 33 QRSd 101 QRS -11 QT 431 T 31 QTc 403 Conclusion Slow sinus arrhythmia...V-rate 43- 64, mean< 60
--- NOTE | 2022-07-17 09:45 | DI.CT_ITS ---
Exam(s) CT CHEST PE ABD PELVIS W EXAM: CT CHEST PE ABD PELVIS W CLINICAL HISTORY: chest pain, syncope, abd pain, recent pelvic sx. TECHNIQUE: Imaging Protocol: Axial CT angiography was performed with multi-slice acquisition and m ulti-planar and/or 3D reconstructions. CONTRAST MATERIAL: Intravenous: Omnipaque 350 Contrast volume:100 ml Oral: None COMPARISON: CT CT ABDOMEN PELVIS W from 12/29/[address] ABDOMEN PELVIS WO from 01/24/[address] ABDOMEN PELVIS W from 07/04/2022 FINDINGS: CHEST: PULMONARY ARTERIES: There are no intra-arterial filling defects to suggest the presence of acute pulm onary emboli. LUNGS: There is no evidence of pulmonary infarction. There are no pleural effusions. MEDIASTINUM: There is no hilar nor mediastinal adenopathy. Visualized thyroid unremarkable. CARDIAC: Heart size is normal. There is no pericardial effusion. There is no significant shift of t he interventricular septum.Caliber of the thoracic aorta is within normal limits. No evidence of aor tic dissection. OSSEOUS: No significant osseous lesions.No fractures.. ABDOMEN: There is no ascites. LIVER: Again noted are 2 adjacent findings in the right hepatic lobe adjacent to the gallbladder lisseth a. There is a 1.7 x 1.4 cm cyst again noted and adjacent to it is a slightly smaller but not complet vinay cystic density which is possibly a small hemangioma measuring 1.4 x 1.2 cm. These findings were also present on CT scan of 01/24/2022. GALLBLADDER/BILIARY: The gallbladder is again noted to be surgically absent. CBD is not dilated. Th ere are no dilated intrahepatic ducts. PANCREAS: No evidence of pancreatic mass nor dilatation of the pancreatic duct. SPLEEN: Spleen is not enlarged. There are no intrasplenic lesions. Splenic and portal veins are penn nt. ADRENALS: No significant adrenal masses. KIDNEYS:No cysts evident. No calculi nor hydronephrosis. No solid renal masses. Ureters are not dila jammie. No obvious abnormality in the urinary bladder.. ABDOMINAL AORTA: Abdominal aorta is not enlarged. LYMPH NODES: There is no retroperitoneal or para-aortic adenopathy. ABDOMINAL WALL/GI: There is periumbilical streaking, more so than previous. This may be related to i nterval anterior abdominal hernia repair. There is no formed fluid collection at this time. There i s no free air in the abdomen evident. No bowel obstruction. PELVIS: LYMPH NODES: There is no intrapelvic nor inguinal adenopathy. GI: The appendix is surgically absent.No evidence of sigmoid diverticulitis. URINARY BLADDER: No calculi nor masses evident REPRODUCTIVE: Uterus is surgically absent. Ovaries not identified. There are no abnormal adnexal ma sses nor free fluid in the pelvis. OSSEOUS: No significant osseous lesions. No fractures. IMPRESSION: 1. No evidence of acute pulmonary emboli nor pulmonary infarction. No pleural effusions. 2. Two adjacent findings in the liver as described above adjacent to the gallbladder fossa in this pa tient has had prior cholecystectomy. These are unchanged from December 2021. One has appearance of a 17 x 14 millimeter cysts and adjacent to it smaller or complex finding measuring 14 x 12 millimeters wh ich may be complicated cyst or hemangioma. Less likely abscess given lack of change since prior stud y. 3. Lori and umbilical streaking is probably related to port site sequelae from the recent ovarian ozzie lukasz. No evidence of abnormal mass nor fluid collection in the pelvis. Uterus and ovaries are surgi megha absent. 4. Appendix is surgically absent. Also no evidence of diverticulitis. Called by myself to ER physician RADIATION DOSE DELIVERED: 1300.45 mGy.cm Total DLP DATA REPOSITORY: All CT scans at this facility are submitted to the National Radiology Data Registry (NRDR) Dose Index Registry (DIR) with the [employer] (A[employer]). RADIATION OPTIMIZATION: All CT scans at this facility use at least one of these dose optimization te chniques: automated exposure control; mA and/or kV adjustment per patient size (includes targeted exa ms where dose is matched to clinical indication); or iterative reconstruction.
--- NOTE | 2022-07-17 10:01 | ED.GENADUL_ITS ---
Discharge Plan Disposition Patient Disposition: Against Medical Advise Discharge Details Chief Complaint: Chest Pain Clinical Impression: Syncope, Chest pain Primary Care Provider: German Campa ED Provider: Steve Doyle Home Meds and New Rx's Prescriptions: No Action cyclobenzaprine 10 mg tablet 10 mg PO TID PRN (Reason: muscle spasm) Qty: 9 0RF ropinirole 1 MG tablet 2 mg PO HS gabapentin 300 MG capsule 800 mg PO .QHS omeprazole 40 mg capsule,delayed release(DR/EC) 40 cap PO HS Label Comments: TAKE 1 CAPSULE BY MOUTH ONCE A DAY diclofenac sodium 50 mg tablet,delayed release (DR/EC) 50 mg PO Q12H PRNQty: 14 0RF venlafaxine 150 MG capsule,extended release 24hr 300 mg PO DAILY acetaminophen [Tylenol] 325 MG tablet 650 mg PO PRN PRN Discharge Instructions Instructions: Against Medical Advice (ED) Additional Instructions: You are leaving prior to completion of work-up AGAINST MEDICAL ADVICE. It has not been determined what is causing your episodes of passing out or chest pain. You may have life-threatening or lifestyle modifying disease that would go undiagnosed and untreated. Please return to the emerge department at any time for further work-up and treatment as recommended. Referrals: German Campa PA [Primary Care Provider] - Medical Decision Making 1000 --37-year-old female here with intermittent chest discomfort today, nausea and vomiting with frequent syncopal episodes that started yesterday. Patient is approximately 1 week status post laparoscopic left oophorectomy. Patient is saturating well and in no respiratory distress. She was bradycardic on arrival and now hemodynamically stable. Abdomen is tender to palpation. EKG was reviewed and interpreted by me: Please see report, sinus bradycardia 52 bpm, normal axis. Plan to treat nausea with Zofran. I will give IV fluid bolus. Patient does have some abdominal discomfort and I will treat with Pepcid. Consider acute life-threatening pulmonary embolism. D-dimer was negative yesterday. Plan to proceed with CT of the chest today. Consider postoperative intra-abdominal pathology. Patient had no anemia yesterday. Will obtain CT of the abdomen pelvis. 1400 --initial labs including troponin negative. CT of the chest was interpreted by radiology: No acute process. No PE. CT of the abdomen pelvis interpreted by radiology: Cystic structures are present around gallbladder, these were seen previously and have not increased in size. No bleeding or inflammation of the pelvic area, no free fluid. There is some streaking around the umbilicus likely secondary to instrumentation from recent surgical procedure. Plan will be for repeat troponin and hospitalization to continue cardiac monitoring. I went to discuss results with the patient and plan and patient is adamant that she would like to leave at this time. She is refusing additional treatment or diagnostics. I had a discussion with the patient about my diagnostic/treatment plan. She declines plan and wishes to leave against medical advise. I attempted to explain the risks of leaving prior to completion of workup and treatment and she is not willing to engage further. I specifically emphasized the possibility of life- threatening or lifestyle modifying disease that would not be appropriately treated if they leave as part of discharge. Patient has decisional making capacity. I recommended that the patient follow-up with primary care physician ABBEY or return to the Emergency Department at any time for further treatment. Lab Data Lab results reviewed: Yes I reviewed the patient's lab results. Labs: Laboratory Tests Range/Units 07/17/22 07/17/22 07/17/22 10:00 10:00 13:00 WBC (4.4-10.8) 10^3/uL 6.57 RBC (3.93-5.22) 10^6/uL 4.76 Hgb (11.2-15.7) g/dL 14.6 Hct (36.0-46.0) % 44.5 MCV (80-95) fL 94 MCH (27.0-33.0) pg 30.7 MCHC (32.0-36.0) % 32.8 RDW (11.7-14.6) % 13.8 Plt Count (130-400) 10^3/uL 291 MPV (8.0-11.0) fL 9.8 Immature Gran % 0.3 Neutrophils % 65.6 Lymphocytes % 25.3 Monocytes % 4.7 Eosinophils % 3.0 Basophils % 1.1 Nucleated RBC % (0.0-0.3) % 0.0 Absolute Neutrophils (1.2-6.7) 10^3/uL 4.31 Absolute Lymphocytes (1.2-3.4) 10^3/uL 1.66 Absolute Monocytes (0.1-0.8) 10^3/uL 0.31 Absolute Eosinophils (0.0-0.7) 10^3/uL 0.20 Absolute Basophils (0.0-0.2) 10^3/uL 0.07 Sodium (136-145) mmol/L 140 Potassium (3.5-5.1) mmol/L 4.1 Chloride (98-107) mmol/L 105 Carbon Dioxide (21.0-32.0) mmol/L 28.0 Anion Gap (3-11) mmol/L 7.0 BUN (7-18) mg/dL 15 Creatinine (0.55-1.02) mg/dL 1.0 Est GFR (CKD-EPI 2020) (mL/min/1.73m2) 73.95 Glucose (74-106) mg/dL 112 H Calcium (8.5-10.1) mg/dL 8.9 Magnesium (1.8-2.4) mg/dL 2.0 Total Bilirubin (0.2-1.0) mg/dL 0.4 AST (15-37) U/L 30 ALT (14-59) U/L 76 H Alkaline Phosphatase (46-116) U/L 137 H Troponin I (<or=60) ng/L < 50 < 50 Total Protein (6.4-8.2) g/dL 7.3 Albumin (3.4-5.0) g/dL 3.2 L HPI General Mode of arrival: ambulatory . Date/Time Provider Initiated Documentation: 07/17/22 09:32 . Limitations to Documentation: no limitations . Information obtained by: patient . HPI Narrative: 37-year-old female presents with chief complaint of chest pain. Patient notes chest retrosternal chest discomfort that has been intermittent since onset this morning. Patient has associated syncope. Chest pain is moderate to severe when it occurs. She currently has no chest pain. She has had nausea and vomiting over the past day. No modifiers. Patient was seen here yesterday in the emergency department for a syncopal episode after vomiting. She fell yesterday and did hit her head. CT of her head and neck was negative yesterday. EKG and diagnostic lab work-up was unremarkable including negative D-dimer and negative troponin. She received IV fluid and Toradol IV. She was feeling better and was discharged home. Related Data Home Medications Medication Instructions Recorded Confirmed ropinirole 1 mg tablet 2 mg PO HS 06/08/15 07/17/22 venlafaxine 150 mg 300 mg PO DAILY 12/17/16 07/17/22 capsule,extended release 24 hr acetaminophen 325 mg tablet 650 mg PO PRN PRN 04/16/17 07/17/22 (Tylenol) gabapentin 300 mg capsule 800 mg PO .QHS 05/21/20 07/17/22 omeprazole 40 mg capsule,delayed 40 cap PO HS 12/29/21 07/17/22 release diclofenac sodium 50 mg 50 mg PO Q12H PRN #14 tabs 01/25/22 07/17/22 tablet,delayed release cyclobenzaprine 10 mg tablet 10 mg PO TID PRN muscle spasm #9 06/19/22 07/17/22 tabs Previous Rx's Medication Instructions Recorded diclofenac sodium 50 mg 50 mg PO Q12H PRN #14 tabs 01/25/22 tablet,delayed release cyclobenzaprine 10 mg tablet 10 mg PO TID PRN muscle spasm #9 06/19/22 tabs Allergies Allergy/AdvReac Type Severity Reaction Status Date / Time Penicillins Allergy Severe Swelling Verified 07/17/22 09:33 in throat granda flavor Allergy Intermediate throat Verified 07/17/22 09:33 bleeds,swelling kiwi Allergy Intermediate throat Verified 07/17/22 09:33 swells latex Allergy Mild rash,swelli Verified 07/17/22 09:33 ng aspirin AdvReac Intermediate stomach Verified 07/17/22 09:33 pain naproxen AdvReac Intermediate Nausea Verified 07/17/22 09:33 sumatriptan [From Imitrex] AdvReac Mild Makes Verified 07/17/22 09:33 headache worse wool Allergy Mild Skin Rash Uncoded 07/17/22 09:33 General Stated Complaint: Chest Pain IVAN: 3 Review of Systems All systems reviewed & are unremarkable except as noted in HPI and below Constitutional Constitutional: Denies fever(s) Cardiovascular Cardiovascular: Reports as per HPI, Reports chest pain and Denies dyspnea Respiratory Respiratory: Denies dyspnea PFSH All Active Problems (Updated 07/17/22 @ 14:00 by Steve Doyle MD) Colitis (Acute) Nausea vomiting and diarrhea (Acute) Cephalgia (Acute) Pelvic pain (Acute) Back pain (Acute) Ovarian cyst (Acute) Syncope and collapse (Acute) Headache (Acute) Syncope (Chronic) Chest pain (Acute) Medical History Abdominal pain Anxiety Bipolar disorder Cholecystitis Depression Dizzy spells GERD (gastroesophageal reflux disease) History of cannabis abuse History of tobacco abuse Irritable bowel syndrome (IBS) Migraine Obesity Restless leg syndrome Ventral hernia Surgical History Diagnostic Laproscopy 2002 [facility]. bilateral ovarian cystectomies 11/2009. Diagnostic laparoscopy for chronic RLQ pain after LAVH in 2009. EGD - MAC (12/16/16) H/O: hysterectomy History of umbilical hernia repair (~09/13/19) Hysterectomy, Laproscopic (~11/2009) LAVH, ovarian conservation for dysmenorrhea Oophrectomy, Right (06/09/15) Laparoscopic RSO with L salpingectomy for R sided pelvic pain. R corpus luteum cyst. no pathology. R wrist cyst removal 10/2002 S/P laparoscopic cholecystectomy (~11/25/20) Status post appendectomy December 2021 - normal pathology Tooth extraction 07/2014 wisdom teeth extraction Social History Smoking/Tobacco Use Status: Current every day Tobacco Type: cigarettes Tobacco: How many years used: 13 Quit status: not considering quitting Smoking risk assessment performed?: Yes Alcohol Intake: current Alcohol Intake frequency: holidays/special occasions only Alcohol type: beer, wine and hard liquor Drug use: Occasionally Substance use type: marijuana Current gender identity: female Do you feel safe at home: Yes Do you feel safe in your relationship?: Yes Female Reproductive History Menstrual control method: permanent sterilization History History 2 Para 2 Hx # Term Pregnancies Multiple births Hx # Pregnancies Ectopic pregnancies AB induced Hx Number of Living Children AB spontaneous Past Pregnancies Del. Date GA/Weeks # Preg Succ Route Wgt Sex Labor Lgth Anesth esia Location Prov Complic 06/01/02 40 No Yes vaginal 3486.991 g Female [place], [place] 09/13/07 40 No Yes vaginal 4082.331 g Male [place], [place] Exam Const General: cooperative and no acute distress HENMT Mouth: moist mucous membranes Eyes Conjunctivae: normal conjunctivae Sclera: normal sclerae Neck Neck: trachea midline Resp Auscultation: clear to auscultation bilaterally, no rales, no rhonchi and no wheezes Cardio Rate: regular rate and not tachycardic Rhythm: regular rhythm Heart Sounds: no gallops, no murmurs and no rubs GI Palpation: soft, not firm, no guarding, no masses, not rigid and nontender Skin General skin exam: no rashes or lesions noted Neuro General: patient alert, patient awake and tone normal Extrem General: no calf tenderness and no edema Psych Appearance: grossly normal Mental Status: mental status grossly normal Affect: anxious affect Course Vital Signs Vital signs: Vital Signs Temperature 36.6 C 07/17/22 09:25 Pulse 61 07/17/22 09:25 Respiratory Rate 14 07/17/22 09:25 Blood Pressure 152/85 H 07/17/22 09:25 Pulse Oximetry 100 07/17/22 09:25 Temperature 36.6 C 07/17/22 09:25 Temperature Source Temporal Artery Scan 07/17/22 09:25 Pulse 61 07/17/22 09:25 Respiratory Rate 14 07/17/22 09:25 Respiratory Effort 07/17/22 09:33 Blood Pressure 152/85 H 07/17/22 09:25 Blood Pressure Position Supine 07/17/22 09:25 Pulse Oximetry 100 07/17/22 09:25 Oxygen Delivery Method Room Air 07/17/22 09:25 Oxygen Flow Rate 0 07/17/22 09:25 Pain Level 10 07/17/22 09:25
[2022-07-17 10:07] LABS: Abs Immature Grans 0.02 10^3/uL (0.0-0.06); Absolute Basophil Count 0.07 10^3/uL (0.0-0.2); Absolute Lymphocyte Count 1.66 10^3/uL (1.2-3.4); Absolute Monocyte Count 0.31 10^3/uL (0.1-0.8); Absolute Neutrophil Count 4.31 10^3/uL (1.2-6.7); Basophils % 1.1; HCT 44.5 % (36.0-46.0); HGB 14.6 g/dL (11.2-15.7); Immature Grans % 0.3; Lymphocytes % 25.3; MCH 30.7 pg (27.0-33.0); MCHC 32.8 % (32.0-36.0); MCV 94 fL (80-95); MPV 9.8 fL (8.0-11.0); Monocytes % 4.7; Neutrophils % 65.6; Platelet Count 291 10^3/uL (130-400); RBC 4.76 10^6/uL (3.93-5.22); RDW 13.8 % (11.7-14.6); WBC 6.57 10^3/uL (4.4-10.8)
[2022-07-17] MEDS: Omnipaque 350 MG/ML 100 ML BTL IJ ×2 (10:23→12:57)
[2022-07-17] MEDS: Normal Saline - Diluent 50 ML VIAL IJ ×2 (10:23→12:56)
[2022-07-17] MEDS: Normal Saline Flush 10 ML SYR IVP (10:24)
[2022-07-17 10:25] LABS: ALT 76 U/L (14-59); AST 30 U/L (15-37); Albumin 3.2 g/dL (3.4-5.0); Alkaline Phosphatase 137 U/L (46-116); BUN 15 mg/dL (7-18); Bilirubin, Total 0.4 mg/dL (0.2-1.0); Calcium 8.9 mg/dL (8.5-10.1); Chloride 105 mmol/L (98-107); Estimated GFR 73.95 (mL/min/1.73m2); Glucose 112 mg/dL (74-106); Potassium 4.1 mmol/L (3.5-5.1); Sodium 140 mmol/L (136-145); Total Protein 7.3 g/dL (6.4-8.2); Troponin I < 50 ng/L (<or=60)
[2022-07-17] MEDS: Lactated Ringers 1,000 ML 1000 ML IV (10:58)
[2022-07-17] MEDS: Ondansetron 4 MG/2 ML VIAL IVP (10:59)
[2022-07-17] MEDS: FAMOTIDINE 20 MG in Normal Saline 100 ML 400 MG IVPB (11:01)
[2022-07-17] MEDS: Droperidol 5 MG/2 ML VIAL 2.5 MG IVP (13:00)
[2022-07-17 13:25] LABS: Troponin I < 50 ng/L (<or=60)
== END 2022-07-17 14:07 | disposition left against medical advice (07) ==
PROVIDERS: Emergency Provider Student in an Organized Health Care Education/Training Program; PCP Physician Assistant Medical
DX: R07.89 Other chest pain (principal); R55 Syncope and collapse; R11.2 Nausea with vomiting, unspecified; R00.1 Bradycardia, unspecified; Z90.721 Acquired absence of ovaries, unilateral; Z86.69 Personal history of other diseases of the nervous system and sense organs; Z90.710 Acquired absence of both cervix and uterus
CPT/HCPCS: 36415; 71275; 74177; 80053; 93005; 96361; 96365; 96367; 96375; 99285; 83735; 84484; 85025; 93010; J0131; J1790; J2405; J3490

== ENCOUNTER 2022-08-01 18:53 | Outpatient (REF) | payer MEDICAID, SELFPAY | END 2022-08-01 18:54 | disposition home or self-care (01) | LOC: LBN 18:53 | PROVIDERS: Visit Provider Physician Assistant | DX: L98.9 Disorder of the skin and subcutaneous tissue, unspecified (principal) | CPT/HCPCS: 87077; 87070; 87186; 87205 ==

== ENCOUNTER 2022-10-15 19:08 | Emergency (ER) | payer MEDICAID, SELFPAY ==
[2022-10-15 19:10] VITALS: BP 120/94; PULSE 70; RESP 18; TEMP 36.4; O2SAT 100
[2022-10-15] MEDS: ACETAMINOPHEN 1,000 MG/100 ML BTL 400 MG IVPB (20:32)
[2022-10-15] MEDS: Ketorolac 15 MG/ML VIAL IVP (20:33)
[2022-10-15] MEDS: Prochlorperazine 10 MG/2 ML VIAL IVP (20:33)
[2022-10-15] MEDS: diphenhydrAMINE 50 MG/ML VIAL IVP (20:33)
[2022-10-15] MEDS: Normal Saline 1,000 ML 1000 ML IV (21:13)
--- NOTE | 2022-10-15 21:35 | ED.GENADUL_ITS ---
Discharge Plan Disposition Patient Disposition: Home Discharge Details Clinical Impression: Migraine Primary Care Provider: German Campa ED Provider: Marylin Santana Home Meds and New Rx's Prescriptions: New prochlorperazine maleate [Compazine] 10 mg tablet 10 mg PO Q6H PRNQty: 10 0RF Continued cyclobenzaprine 10 mg tablet 10 mg PO TID PRN (Reason: muscle spasm) Qty: 9 0RF ondansetron 4 mg tablet,disintegrating 4 mg PO Q6H PRN (Reason: nausea and vomiting) Qty: 10 0RF doxycycline hyclate 100 mg capsule 100 mg PO BID Qty: 20 0RF ropinirole 1 MG tablet 2 mg PO HS gabapentin 300 MG capsule 800 mg PO .QHS omeprazole 40 mg capsule,delayed release(DR/EC) 40 cap PO HS Patient Comments: TAKE 1 CAPSULE BY MOUTH ONCE A DAY diclofenac sodium 50 mg tablet,delayed release (DR/EC) 50 mg PO Q12H PRNQty: 14 0RF venlafaxine 150 MG capsule,extended release 24hr 300 mg PO DAILY acetaminophen [Tylenol] 325 MG tablet 650 mg PO PRN PRN Discharge Instructions Instructions: General Headache (ED) Additional Instructions: You may take Compazine as needed for return of headache and nausea Keep yourself hydrated Ibuprofen and Tylenol Return earlier should you have new or worsening complaints Referrals: German Campa PA [Primary Care Provider] - 2 days Discharge Data Discharge Date/Time-TO BE ENTERED AT DEPARTURE: 10/15/22 21:55 Medical Decision Making This 37-year-old female presents with reported migraine headache, similar to patient's prior assessments Reports nausea and vomiting Given typical migraine cocktail with Compazine, Benadryl, Tylenol, and fluids, patient reports marked improvement, request discharge home at this time, feeling symptomatically improved Vitals are stable Able to tolerate p.o. Return precautions reviewed and patient expressed understanding Medical Records Medical records reviewed: Yes I reviewed the patient's medical records. Lab Data Lab results reviewed: Yes I reviewed the patient's lab results. HPI General Date/Time Provider Initiated Documentation: 10/15/22 20:01 . HPI Narrative: This 37-year-old female with history of migraine headaches presents with typical migraine for patient with nausea. She denies any fever or chills. She denies any neck pain or vision change. She denies any risk of carbon monoxide exposure or chance of . Related Data Home Medications Medication Instructions Recorded Confirmed ropinirole 1 mg tablet 2 mg PO HS 06/08/15 10/15/22 venlafaxine 150 mg 300 mg PO DAILY 12/17/16 10/15/22 capsule,extended release 24 hr acetaminophen 325 mg tablet 650 mg PO PRN PRN 04/16/17 10/15/22 (Tylenol) gabapentin 300 mg capsule 800 mg PO .QHS 05/21/20 10/15/22 omeprazole 40 mg capsule,delayed 40 cap PO HS 12/29/21 10/15/22 release diclofenac sodium 50 mg 50 mg PO Q12H PRN #14 tabs 01/25/22 10/15/22 tablet,delayed release cyclobenzaprine 10 mg tablet 10 mg PO TID PRN muscle spasm #9 06/19/22 10/15/22 tabs doxycycline hyclate 100 mg capsule 100 mg PO BID #20 caps 08/01/22 10/15/22 ondansetron 4 mg disintegrating 4 mg PO Q6H PRN nausea and 10/15/22 10/15/22 tablet vomiting #10 tabs prochlorperazine maleate 10 mg 10 mg PO Q6H PRN #10 tabs 10/15/22 tablet (Compazine) Previous Rx's Medication Instructions Recorded diclofenac sodium 50 mg 50 mg PO Q12H PRN #14 tabs 01/25/22 tablet,delayed release cyclobenzaprine 10 mg tablet 10 mg PO TID PRN muscle spasm #9 06/19/22 tabs doxycycline hyclate 100 mg capsule 100 mg PO BID #20 caps 08/01/22 ondansetron 4 mg disintegrating 4 mg PO Q6H PRN nausea and 10/15/22 tablet vomiting #10 tabs prochlorperazine maleate 10 mg 10 mg PO Q6H PRN #10 tabs 10/15/22 tablet (Compazine) Allergies Allergy/AdvReac Type Severity Reaction Status Date / Time Penicillins Allergy Severe Swelling Verified 10/15/22 18:33 in throat granda flavor Allergy Intermediate throat Verified 10/15/22 18:33 bleeds,swelling kiwi Allergy Intermediate throat Verified 10/15/22 18:33 swells latex Allergy Mild rash,swelli Verified 10/15/22 18:33 ng aspirin AdvReac Intermediate stomach Verified 10/15/22 18:33 pain naproxen AdvReac Intermediate Nausea Verified 10/15/22 18:33 sumatriptan [From Imitrex] AdvReac Mild Makes Verified 10/15/22 18:33 headache worse wool Allergy Mild Skin Rash Uncoded 10/15/22 18:33 General Stated Complaint: Headache IVAN: 3 PFSH All Active Problems (Updated 10/15/22 @ 21:37 by RADHA Sharif) Migraine (Chronic) Colitis (Acute) Nausea vomiting and diarrhea (Acute) Cephalgia (Acute) Medical History Anxiety Bipolar disorder Cholecystitis Depression Dizzy spells GERD (gastroesophageal reflux disease) History of cannabis abuse History of tobacco abuse Irritable bowel syndrome (IBS) Migraine Obesity Restless leg syndrome Ventral hernia Surgical History Diagnostic Laproscopy 2002 [facility]. bilateral ovarian cystectomies 11/2009. Diagnostic laparoscopy for chronic RLQ pain after LAVH in 2009. EGD - MAC (12/16/16) H/O: hysterectomy History of left oophorectomy 07/10/22, left oophorectomy for pelvic pain. Abnormal hardened pelvic vessels noted. History of umbilical hernia repair (~09/13/19) Hysterectomy, Laproscopic (~11/2009) LAVH, ovarian conservation for dysmenorrhea Oophrectomy, Right (06/09/15) Laparoscopic RSO with L salpingectomy for R sided pelvic pain. R corpus luteum cyst. no pathology. R wrist cyst removal 10/2002 S/P laparoscopic cholecystectomy (~11/25/20) Status post appendectomy December 2021 - normal pathology Tooth extraction 07/2014 wisdom teeth extraction Social History Smoking/Tobacco Use Status: Current every day Tobacco Type: cigarettes Tobacco: How many years used: 13 Quit status: not considering quitting Smoking risk assessment performed?: Yes Alcohol Intake: current Alcohol Intake frequency: holidays/special occasions only Alcohol type: beer, wine and hard liquor Drug use: Occasionally Substance use type: marijuana Current gender identity: female Do you feel safe at home: Yes Do you feel safe in your relationship?: Yes Female Reproductive History Menstrual control method: permanent sterilization History History 2 Para 2 Hx # Term Pregnancies Multiple births Hx # Pregnancies Ectopic pregnancies AB induced Hx Number of Living Children AB spontaneous Past Pregnancies Del. Date GA/Weeks # Preg Succ Route Wgt Sex Labor Lgth Anesth esia Location [facility] 06/01/02 40 No Yes vaginal 3486.991 g Female [place], [place] 09/13/07 40 No Yes vaginal 4082.331 g Male [place], [place] Exam Const General: cooperative and comfortable HENMT Head: normal to inspection Eyes Pupils: PERRL Neck Other: No meningismus Neuro General: patient alert and patient oriented x3 Cranial Nerves: CN's II-XI intact bilaterally Cognition: normal cognition Speech: speech normal Gait: normal gait Motor: strength 5/5 throughout Sensory Exam: no sensory deficits noted Course Vital Signs Vital signs: Vital Signs Temperature 36.4 C 10/15/22 19:10 Pulse 70 10/15/22 19:10 Respiratory Rate 18 10/15/22 19:10 Blood Pressure 120/94 H 10/15/22 19:10 Pulse Oximetry 100 10/15/22 19:10 Temperature 36.4 C 10/15/22 19:10 Temperature Source Oral 10/15/22 19:10 Pulse 70 10/15/22 19:10 Respiratory Rate 18 10/15/22 19:10 Respiratory Effort Normal, Non-Labored 10/15/22 19:20 Blood Pressure 120/94 H 10/15/22 19:10 Blood Pressure Position Sitting 10/15/22 19:10 Pulse Oximetry 100 10/15/22 19:10 Oxygen Delivery Method Room Air 10/15/22 19:10 Oxygen Flow Rate 0 10/15/22 19:10 Pain Level 10 10/15/22 19:20
[2022-10-15 21:44] VITALS: BP 118/83; PULSE 67; RESP 20; O2SAT 96
== END 2022-10-15 21:55 | disposition home or self-care (01) ==
PROVIDERS: Emergency Provider Physician Assistant; PCP Physician Assistant Medical
DX: G43.909 Migraine, unspecified, not intractable, without status migrainosus (principal)
CPT/HCPCS: 96361; 96365; 96375; 99284; J0131; J0780; J1200; J1885

== ENCOUNTER 2022-10-17 08:28 | Emergency (ER) | payer MEDICAID, SELFPAY ==
[2022-10-17] VITALS (19 sets, daily range): BP systolic 121–138; BP diastolic 85–112; PULSE 61–80; RESP 9–24; TEMP 37; O2SAT 92–96
--- NOTE | 2022-10-17 08:30 | RT.EKG_ITS ---
APPROVED REPORT Exam: Resting ECG Reason for Exam: chest pain Patient Location: E HR:69 bpm ECG Measurements Heart Rate 69 AXIS RI 169 P 44 QRSd 89 QRS -15 QT 397 T 27 QTc 422 Conclusion Sinus rhythm...normal P axis, V-rate 60- 99 Ventricular premature complex...V complex w/ short R-R interval sinus rhythm, lefts axis, nomral intervals, non ischemic, PVC
--- NOTE | 2022-10-17 09:00 | DI.RAD_ITS ---
Exam(s) XR PORTABLE CHEST AP EXAM: XR PORTABLE CHEST AP CLINICAL HISTORY: fatigue TECHNIQUE: 2D digital imaging was performed of the chest. One image was obtained. An AP view was ob tained. COMPARISON: CR XR PORTABLE CHEST AP from 05/28/2021 FINDINGS: MEDIASTINUM: Normal. HEART: Normal. PULMONARY VASCULATURE: Normal. LUNGS: Clear. PLEURAL SPACE: No pleural effusion or pneumothorax. BONE:Within normal limits for the patient's age. OTHER FINDINGS:Normal. IMPRESSION: No acute pulmonary findings. DATA REPOSITORY: RADIATION DOSE DELIVERED:
--- NOTE | 2022-10-17 09:11 | ED.GENADUL_ITS ---
Discharge Plan Disposition Patient Disposition: Home Condition: Improving Discharge Details Chief Complaint: GenMedical Clinical Impression: Fatigue Primary Care Provider: German Campa ED Provider: Vic Lau Home Meds and New Rx's Prescriptions: No Action cyclobenzaprine 10 mg tablet 10 mg PO TID PRN (Reason: muscle spasm) Qty: 9 0RF ondansetron 4 mg tablet,disintegrating 4 mg PO Q6H PRN (Reason: nausea and vomiting) Qty: 10 0RF doxycycline hyclate 100 mg capsule 100 mg PO BID Qty: 20 0RF ropinirole 1 MG tablet 2 mg PO HS gabapentin 300 MG capsule 800 mg PO .QHS omeprazole 40 mg capsule,delayed release(DR/EC) 40 cap PO HS Patient Comments: TAKE 1 CAPSULE BY MOUTH ONCE A DAY diclofenac sodium 50 mg tablet,delayed release (DR/EC) 50 mg PO Q12H PRNQty: 14 0RF venlafaxine 150 MG capsule,extended release 24hr 300 mg PO DAILY acetaminophen [Tylenol] 325 MG tablet 650 mg PO PRN PRN prochlorperazine maleate [Compazine] 10 mg tablet 10 mg PO Q6H PRNQty: 10 0RF Discharge Instructions Instructions: Fatigue (ED) Additional Instructions: Please follow-up with your primary care physician. Please return to the emergency department for any worsening symptoms. Medical Decision Making 37-year-old female presents with generalized fatigue body aches nausea vomiting in the setting of recently being exposed to a COVID-positive patient. Patient had likely syncopal episode earlier today. No chest pain or shortness of breath. EKG normal sinus rhythm nonischemic. Afebrile nontoxic moist mucous membranes normotensive. No respiratory distress. High clinical suspicion for COVID versus influenza versus other viral illness muscles consider pneumonia or UTI; will obtain basic labs chest x-ray EKG, fluids antiemetics anti- inflammatory. Patient is very anxious and would like some medication for anxiety. Will provide Ativan 1 mg IV. Disposition likely home pending results and imaging 10: 32 COVID-negative. Hemodynamically stable however noted to have transaminitis and elevated alk phos. Consider biliary pathology, lipase has been added CT abdomen pelvis is also been added. Given transaminitis and generalized fatigue have also had a tick panel to assess for Lyme and anaplasmosis. 11: 55 patient resting more comfortably. Hemodynamically stable. Send out tick panel and hepatitis panel. Home care instructions and return precautions given. HPI General Date/Time Provider Initiated Documentation: 10/17/22 09:06 . HPI Narrative: 37-year-old female presents with body aches nausea vomiting fatigue and possible syncope earlier today. Recent contact with positive COVID-patient. History of cholecystectomy appendectomy and hysterectomy Related Data Home Medications Medication Instructions Recorded Confirmed ropinirole 1 mg tablet 2 mg PO HS 06/08/15 10/15/22 venlafaxine 150 mg 300 mg PO DAILY 12/17/16 10/15/22 capsule,extended release 24 hr acetaminophen 325 mg tablet 650 mg PO PRN PRN 04/16/17 10/15/22 (Tylenol) gabapentin 300 mg capsule 800 mg PO .QHS 05/21/20 10/15/22 omeprazole 40 mg capsule,delayed 40 cap PO HS 12/29/21 10/15/22 release diclofenac sodium 50 mg 50 mg PO Q12H PRN #14 tabs 01/25/22 10/15/22 tablet,delayed release cyclobenzaprine 10 mg tablet 10 mg PO TID PRN muscle spasm #9 06/19/22 10/15/22 tabs doxycycline hyclate 100 mg capsule 100 mg PO BID #20 caps 08/01/22 10/15/22 ondansetron 4 mg disintegrating 4 mg PO Q6H PRN nausea and 10/15/22 10/15/22 tablet vomiting #10 tabs prochlorperazine maleate 10 mg 10 mg PO Q6H PRN #10 tabs 10/15/22 tablet (Compazine) Previous Rx's Medication Instructions Recorded diclofenac sodium 50 mg 50 mg PO Q12H PRN #14 tabs 01/25/22 tablet,delayed release cyclobenzaprine 10 mg tablet 10 mg PO TID PRN muscle spasm #9 06/19/22 tabs doxycycline hyclate 100 mg capsule 100 mg PO BID #20 caps 08/01/22 ondansetron 4 mg disintegrating 4 mg PO Q6H PRN nausea and 10/15/22 tablet vomiting #10 tabs prochlorperazine maleate 10 mg 10 mg PO Q6H PRN #10 tabs 10/15/22 tablet (Compazine) Allergies Allergy/AdvReac Type Severity Reaction Status Date / Time Penicillins Allergy Severe Swelling Verified 10/17/22 09:05 in throat granda flavor Allergy Intermediate throat Verified 10/17/22 09:05 bleeds,swelling kiwi Allergy Intermediate throat Verified 10/17/22 09:05 swells latex Allergy Mild rash,swelli Verified 10/17/22 09:05 ng aspirin AdvReac Intermediate stomach Verified 10/17/22 09:05 pain naproxen AdvReac Intermediate Nausea Verified 10/17/22 09:05 sumatriptan [From Imitrex] AdvReac Mild Makes Verified 10/17/22 09:05 headache worse wool Allergy Mild Skin Rash Uncoded 10/17/22 09:05 General Stated Complaint: GenMedical IVAN: 3 Review of Systems Narrative: Review of Systems Constitutional: Fatigue, body aches Eyes: negative ENT: negative Cardiovascular: negative Respiratory: negative Gastrointestinal: Nausea vomiting : negative Musculoskeletal: negative Skin: negative Neurologic: negative Psych: negative PFSH All Active Problems (Updated 10/17/22 @ 11:56 by Vic Lau MD) Migraine (Chronic) Fatigue (Acute) Colitis (Acute) Nausea vomiting and diarrhea (Acute) Cephalgia (Acute) Medical History Anxiety Bipolar disorder Cholecystitis Depression Dizzy spells GERD (gastroesophageal reflux disease) History of cannabis abuse History of tobacco abuse Irritable bowel syndrome (IBS) Migraine Obesity Restless leg syndrome Ventral hernia Surgical History Diagnostic Laproscopy 2002 [facility] bilateral ovarian cystectomies 11/2009. Diagnostic laparoscopy for chronic RLQ pain after LAVH in 2009. EGD - MAC (12/16/16) H/O: hysterectomy History of left oophorectomy 07/10/22, left oophorectomy for pelvic pain. Abnormal hardened pelvic vessels noted. History of umbilical hernia repair (~09/13/19) Hysterectomy, Laproscopic (~11/2009) LAVH, ovarian conservation for dysmenorrhea Oophrectomy, Right (06/09/15) Laparoscopic RSO with L salpingectomy for R sided pelvic pain. R corpus luteum cyst. no pathology. R wrist cyst removal 10/2002 S/P laparoscopic cholecystectomy (~11/25/20) Status post appendectomy December 2021 - normal pathology Tooth extraction 07/2014 wisdom teeth extraction Social History Smoking/Tobacco Use Status: Current every day Tobacco Type: cigarettes Tobacco: How many years used: 13 Quit status: not considering quitting Smoking risk assessment performed?: Yes Alcohol Intake: current Alcohol Intake frequency: holidays/special occasions only Alcohol type: beer, wine and hard liquor Drug use: Occasionally Substance use type: marijuana Current gender identity: female Do you feel safe at home: Yes Do you feel safe in your relationship?: Yes Female Reproductive History Menstrual control method: permanent sterilization History History 2 Para 2 Hx # Term Pregnancies Multiple births Hx # Pregnancies Ectopic pregnancies AB induced Hx Number of Living Children AB spontaneous Past Pregnancies Del. Date GA/Weeks # Preg Succ Route Wgt Sex Labor Lgth Anesth esia Location [facility] 06/01/02 40 No Yes vaginal 3486.991 g Female [place], [place] 09/13/07 40 No Yes vaginal 4082.331 g Male [place], [place] Exam Narrative Exam Narrative: Physical Examination General: alert, awake, cooperative, resting comfortably, no acute distress HEENT: normocephalic, atraumatic; PERRL, EOM intact, conjunctiva normal; no nasal discharge; moist mucous membranes, oral and pharyngeal mucosa normal, tolerating secretions Neck: supple, trachea midline; full ROM Chest: normal to inspection Respiratory: normal respiratory effort, speaking in full sentences, clear to auscultation, no wheezing, rales or rhonchi Cardiac: regular rate, regular rhythm, S1S2 intact, no murmurs rubs or gallops GI: abdomen soft, non-tender, non-distended; no palpable mass or hepatosplenomegaly Skin: no lesions, rashes or trauma appreciated Neuro: AAOx3, normal speech, moving all extremities Psych: Appropriate mood and affect Course Vital Signs Vital signs: Vital Signs Pulse 79 10/17/22 09:02 Respiratory Rate 18 10/17/22 09:02 Blood Pressure 130/95 H 10/17/22 09:02 Pulse Oximetry 96 10/17/22 09:02 Pulse 79 10/17/22 09:02 Respiratory Rate 18 10/17/22 09:07 Respiratory Effort Normal, Non-Labored 10/17/22 09:07 Respiratory Depth Normal 10/17/22 09:07 Respiratory Pattern Normal 10/17/22 09:07 Blood Pressure 130/95 H 10/17/22 09:02 Blood Pressure Position Sitting 10/17/22 09:02 Pulse Oximetry 96 10/17/22 09:02 Oxygen Delivery Method Room Air 10/17/22 09:02 Oxygen Flow Rate 0 10/17/22 09:02
[2022-10-17 09:19] LABS: Abs Immature Grans 0.02 10^3/uL (0.0-0.06); Absolute Eosinophil Count 0.18 10^3/uL (0.0-0.7); Absolute Lymphocyte Count 1.83 10^3/uL (1.2-3.4); Absolute Monocyte Count 0.53 10^3/uL (0.1-0.8); Absolute Neutrophil Count 6.17 10^3/uL (1.2-6.7); Basophils % 1.1; HCT 46.3 % (36.0-46.0); HGB 15.5 g/dL (11.2-15.7); Immature Grans % 0.2; Lymphocytes % 20.7; MCHC 33.5 % (32.0-36.0); MCV 90 fL (80-95); MPV 10.3 fL (8.0-11.0); Platelet Count 271 10^3/uL (130-400); RBC 5.16 10^6/uL (3.93-5.22); RDW 13.2 % (11.7-14.6); RDW-SD 43.8 fL; WBC 8.83 10^3/uL (4.4-10.8)
[2022-10-17] MEDS: Normal Saline 1,000 ML 1000 ML IV (09:26)
[2022-10-17] MEDS: Ondansetron 4 MG/2 ML VIAL IVP (09:29)
[2022-10-17] MEDS: Ketorolac 15 MG/ML VIAL IVP (09:30)
[2022-10-17] MEDS: LORazepam 2 MG/ML VIAL 1 MG IVP (09:31)
[2022-10-17 09:42] LABS: ALT 106 U/L (14-59); AST 60 U/L (15-37); Albumin 3.6 g/dL (3.4-5.0); Alkaline Phosphatase 163 U/L (46-116); Anion Gap 9.1 mmol/L (3-11); BUN 15 mg/dL (7-18); Bilirubin, Total 0.5 mg/dL (0.2-1.0); CO2 26.9 mmol/L (21.0-32.0); CREATININE 1.1 mg/dL (0.55-1.02); Calcium 9.2 mg/dL (8.5-10.1); Chloride 106 mmol/L (98-107); Estimated GFR 65.96 (mL/min/1.73m2); Glucose 108 mg/dL (74-106); Potassium 3.8 mmol/L (3.5-5.1); Sodium 142 mmol/L (136-145); Total Protein 7.8 g/dL (6.4-8.2)
[2022-10-17 10:26] LABS: COVID-19 PCR Negative (Negative); Influenza A PCR Negative (Negative); Influenza B PCR Negative (Negative); RSV PCR Negative (Negative)
[2022-10-17 10:27] LABS: Source Nasopharynx
[2022-10-17 10:39] LABS: Lipase 25 U/L (16-77)
[2022-10-17 10:52] LABS: Bilirubin Small (Negative); Blood Negative (Negative); Clarity Clear (Clear); Glucose Negative (Negative); Ketones 40 mg/dL (Negative); Leukocyte Esterase Negative (Negative); Nitrite Negative (Negative); Specific Gravity >= 1.030 (1.005-1.025); pH 5.5 (5-8)
[2022-10-17 11:02] LABS: Bacteria Few HPF (Negative); C & S Indicated? No; Casts Negative LPF (Negative); Crystals Moderate Amorphous HPF (Negative); Epithelial Cells Rare HPF (Negative); Mucus Trace (Negative); RBC Negative HPF (0-2); WBC Negative HPF (0-5)
[2022-10-17] MEDS: Normal Saline - Diluent 50 ML VIAL IJ (11:09)
[2022-10-17] MEDS: Omnipaque 350 MG/ML 500 ML BTL-Imaging package 100 ML IJ (11:09)
--- NOTE | 2022-10-17 11:16 | DI.CT_ITS ---
Exam(s) CT ABDOMEN PELVIS W EXAM: CT ABDOMEN PELVIS W CLINICAL HISTORY: transamintis, nausea TECHNIQUE: Imaging Protocol: Axial computed tomography images with coronal and sagittal reformatted images were created and reviewed CONTRAST MATERIAL: Intravenous: Omnipaque 350 Contrast volume:100 mL Oral: No COMPARISON: CT CT CHEST PE ABD PELVIS W from 07/17/2022 FINDINGS: The examination is limited due to patient motion artifact. ABDOMEN: Lung Bases: Normal where visualized. Liver: Normal density. The cyst in the inferior aspect of the liver are stable. No suspicious hepati c masses are seen. Portal, Superior Mesenteric, and Splenic Veins: Unremarkable. Gallbladder and Biliary Tract: Status post cholecystectomy. No significant biliary ductal dilatation . Pancreas: Normal density, no abnormal calcifications or inflammatory process. Spleen: Normal. Adrenals: No masses seen. Kidneys: Normal size, contour and axis. No radiodense stones or obstructive uropathy. No masses seen. Abdominal Aorta: Abdominal portion non-dilated. Bowel: Diverticulosis of the colon, but no evidence of acute diverticulitis. No evidence of bowel ob struction or bowel wall thickening. The patient appears to be status post appendectomy. Peritoneal Cavity: No ascites, collection or mesenteric inflammatory response. No free air. Lymph Nodes: Within normal limits. Bones: Within normal limits for the patient's age. Soft Tissues: There is a small fat containing umbilical hernia. PELVIS: Bladder: Symmetric distention, no gross wall thickening. Reproductive Organs: Status post hysterectomy. Lymph Nodes: Within normal limits. Bones: Within normal limits for the patient's age. IMPRESSION: 1. No acute abdominal or pelvic process. 2. Findings were discussed with the emergency department at 11:50 a.m. on 10/17/2022. RADIATION DOSE DELIVERED: 1,368.9mGy.cm Total DLP DATA REPOSITORY: All CT scans at this facility are submitted to the National Radiology Data Registry (NRDR) Dose Index Registry (DIR) with the [employer] (ACR). RADIATION OPTIMIZATION: All CT scans at this facility use at least one of these dose optimization te chniques: automated exposure control; mA and/or kV adjustment per patient size (includes targeted exa ms where dose is matched to clinical indication); or iterative reconstruction.
[2022-10-18 10:43] LABS: Hepatitis A Antibody IgM Negative (Negative); Hepatitis B Core Antibody Negative (Negative); Hepatitis B surface Ag Negative (Negative); Hepatitis C Ab w Rflx HCV PCR Negative (Negative)
[2022-10-18 13:06] LABS: Lyme Ab w Rflx to Lyme Confirm Negative (Negative)
[2022-10-19 18:17] LABS: Anaplasma phagocytophilum Negative (Negative); B. miyamotoi PCR Negative (Negative); Babesia divergens/MO-1 Negative (Negative); Babesia duncani Negative (Negative); Babesia microti Negative (Negative); Ehrlichia chaffeensis Negative (Negative); Ehrlichia ewingii/canis Negative (Negative); Ehrlichia muris eauclairensis Negative (Negative)
== END 2022-10-17 12:08 | disposition home or self-care (01) ==
PROVIDERS: Emergency Provider Emergency Medicine; PCP Physician Assistant Medical
DX: R53.83 Other fatigue (principal); R11.2 Nausea with vomiting, unspecified; F41.9 Anxiety disorder, unspecified; R74.01 Elevation of levels of liver transaminase levels; R74.8 Abnormal levels of other serum enzymes; Z90.49 Acquired absence of other specified parts of digestive tract; Z90.710 Acquired absence of both cervix and uterus; Z20.822 Contact with and (suspected) exposure to COVID-19
CPT/HCPCS: 80053; 83690; 86704; 86709; 86803; 87340; 87637; 87798; 93005; 96361; 96374; 96375; 99285; 71045; 74177; 81003; 81015; 85025; 86618; 93010; J1885; J2060; J2405

== ENCOUNTER 2023-04-20 06:14 | Emergency (ER) | payer MEDICAID, SELFPAY ==
[2023-04-20 06:13] VITALS: BP 156/107; PULSE 69; RESP 18; TEMP 36.6; O2SAT 98
[2023-04-20 06:36] LABS: Abs Immature Grans 0.01 10^3/uL (0.0-0.06); Absolute Basophil Count 0.07 10^3/uL (0.0-0.2); Absolute Eosinophil Count 0.15 10^3/uL (0.0-0.7); Absolute Lymphocyte Count 2.01 10^3/uL (1.2-3.4); Absolute Monocyte Count 0.55 10^3/uL (0.1-0.8); Absolute Neutrophil Count 3.79 10^3/uL (1.2-6.7); Basophils % 1.1; Eosinophils % 2.3; HGB 14.8 g/dL (11.2-15.7); Immature Grans % 0.2; Lymphocytes % 30.5; MCH 29.8 pg (27.0-33.0); MCHC 33.6 % (32.0-36.0); MCV 89 fL (80-95); MPV 9.6 fL (8.0-11.0); Monocytes % 8.4; Neutrophils % 57.5; Platelet Count 288 10^3/uL (130-400); RBC 4.97 10^6/uL (3.93-5.22); WBC 6.58 10^3/uL (4.4-10.8)
[2023-04-20] MEDS: Ondansetron 4 MG/2 ML VIAL IVP (06:36)
[2023-04-20] MEDS: Normal Saline 1,000 ML 1000 ML IV (06:37)
--- NOTE | 2023-04-20 06:39 | ED.GENADUL_ITS ---
Discharge Plan Disposition Patient Disposition: Home Discharge Details Clinical Impression: Dehydration, Nausea & vomiting, Ulceration of oral mucosa Primary Care Provider: German Campa ED Provider: Doni Ball Home Meds and New Rx's Prescriptions: New ondansetron 4 mg tablet,disintegrating 4 mg PO Q8H Qty: 20 0RF No Action ondansetron 4 mg tablet,disintegrating 4 mg PO Q6H PRN (Reason: nausea and vomiting) Qty: 10 0RF Patient Comments: 10/17/22: not on pt list cyclobenzaprine 10 mg tablet 10 mg PO TID PRN (Reason: muscle spasm) Qty: 9 0RF Patient Comments: not taking hydroxyzine HCl 25 mg tablet 25 mg PO QHS bupropion HCl [Wellbutrin SR] 100 mg tablet sustained-release 12 hr 100 mg PO DAILY ropinirole 1 MG tablet 2 mg PO HS gabapentin 300 MG capsule 800 mg PO .QHS Patient Comments: not taking omeprazole 40 mg capsule,delayed release(DR/EC) 40 cap PO HS Patient Comments: TAKE 1 CAPSULE BY MOUTH ONCE A DAY diclofenac sodium 50 mg tablet,delayed release (DR/EC) 50 mg PO Q12H PRNQty: 14 0RF promethazine 25 mg Suppository 25 mg [place] Q6H PRN Patient Comments: not taking venlafaxine 150 MG capsule,extended release 24hr 300 mg PO DAILY acetaminophen [Tylenol] 325 MG tablet 650 mg PO PRN PRN Discharge Instructions Instructions: Dehydration (ED), Acute Nausea and Vomiting (ED) Additional Instructions: At this time your postsurgical site appears to be healing appropriately. Please use the numbing medicine as needed to help with the pain. Please take Tylenol only sparingly as needed. Please use the Zofran as needed for nausea. We have given you a small bottle and a prescription has been sent to your pharmacy on file. Please continue to hydrate well at home. If you notice any worsening of your symptoms, or any new symptoms such as vomiting, diarrhea, fever, chills, shortness of breath, chest pain, numbness, weakness, or fainting , please return immediately to the emergency department for reevaluation. Please follow up with your primary care provider as soon as possible for reassessment and reevaluation. As always, it was a pleasure participating in your medical care today. Referrals: German Campa PA [Primary Care Provider] - Medical Decision Making 38-year-old female with a past medical history of a chronic lesion on her lower lip that just got surgically removed 3 days ago by the ENT office presents today for evaluation of vomiting dehydration and lip pain. Patient cannot take ibuprofen secondary to allergies, so for the last 3 days she has been taking Tylenol. Fortunately today and last night and yesterday she began vomiting and has been unable to keep much fluids down. She admits to occasional chills but denies any fever. She denies any headache or neck pain. She has notable pain in the lip itself, but denies any other complaints. She denies any abdominal pain. She denies any blood in her vomit. She denies any other complaints at this time. Exam demonstrates an ulcerated appropriate postsurgical site. No abscess, mild swelling in that area. Notably dry mucous membranes. Differential is highest for gastritis, pancreatitis, and questionable mild infection for the lip. We will rehydrate. No indication for imaging as she has no abdominal tenderness whatsoever. Symptoms inconsistent with obstruction, cholecystitis, or appendicitis. We will treat the patient's pain with over med of those provided via EMS, rehydrate monitor closely and reassess. 7:45 AM Patient received IV fluids, feeling much better. Laboratory work-up shows no white count bandemia or left shift. Creatinine slightly elevated at 1.3 compared to baseline. Lipase normal. Patient tolerating p.o. At this time patient feels much better in the numbing topical agent did very well for her pain. We will give her some HurriCaine gel for home use. Recommend Tylenol sparingly. Will give Zofran for home use. Discussed red flags for which to return. Suspect viral etiology or mild gastroenteritis as the cause of her vomiting. Patient otherwise looks well. Repeat abdominal exam shows no signs of abdominal tenderness whatsoever. Discussed red flags for which to return. I have extensively reviewed the treatment plan and discharge instructions with the patient. I have addressed all patient concerns at this time. The patient was made aware of what symptoms to monitor for that would warrant a return to the emergency department. Discussed the plan with the patient, they demonstrate verbal understanding and agreement with our assessment and plan at this time. The documentation in this chart was dictated using [employer] dictation software. Please excuse any dictation errors. HPI General Date/Time Provider Initiated Documentation: 04/20/23 06:35 . HPI Narrative: 38-year-old female with a past medical history of a chronic lesion on her lower lip that just got surgically removed 3 days ago by the ENT office presents today for evaluation of vomiting dehydration and lip pain. Patient cannot take ibuprofen secondary to allergies, so for the last 3 days she has been taking Tylenol. Fortunately today and last night and yesterday she began vomiting and has been unable to keep much fluids down. She admits to occasional chills but denies any fever. She denies any headache or neck pain. She has notable pain in the lip itself, but denies any other complaints. She denies any abdominal pain. She denies any blood in her vomit. She denies any other complaints at this time. Related Data Home Medications Medication Instructions Recorded Confirmed ropinirole 1 mg tablet 2 mg PO HS 06/08/15 04/20/23 venlafaxine 150 mg 300 mg PO DAILY 12/17/16 04/20/23 capsule,extended release 24 hr acetaminophen 325 mg tablet 650 mg PO PRN PRN 04/16/17 04/20/23 (Tylenol) gabapentin 300 mg capsule 800 mg PO .QHS 05/21/20 12/18/22 omeprazole 40 mg capsule,delayed 40 cap PO HS 12/29/21 04/20/23 release diclofenac sodium 50 mg 50 mg PO Q12H PRN #14 tabs 01/25/22 04/20/23 tablet,delayed release ondansetron 4 mg disintegrating 4 mg PO Q6H PRN nausea and 10/15/22 04/18/23 tablet vomiting #10 tabs promethazine 25 mg rectal 25 mg [place] Q6H PRN 10/17/22 12/18/22 suppository cyclobenzaprine 10 mg tablet 10 mg PO TID PRN muscle spasm #9 11/27/22 04/18/23 tabs bupropion HCl 100 mg tablet,12 hr 100 mg PO DAILY 03/18/23 04/20/23 sustained-release (Wellbutrin SR) hydroxyzine HCl 25 mg tablet 25 mg PO QHS 03/18/23 04/20/23 ondansetron 4 mg disintegrating 4 mg PO Q8H #20 tabs 04/20/23 tablet Previous Rx's Medication Instructions Recorded diclofenac sodium 50 mg 50 mg PO Q12H PRN #14 tabs 01/25/22 tablet,delayed release ondansetron 4 mg disintegrating 4 mg PO Q6H PRN nausea and 10/15/22 tablet vomiting #10 tabs cyclobenzaprine 10 mg tablet 10 mg PO TID PRN muscle spasm #9 11/27/22 tabs ondansetron 4 mg disintegrating 4 mg PO Q8H #20 tabs 04/20/23 tablet Allergies Allergy/AdvReac Type Severity Reaction Status Date / Time Penicillins Allergy Severe Swelling Verified 04/18/23 09:05 in throat granda flavor Allergy Intermediate throat Verified 04/18/23 09:05 bleeds,swelling kiwi Allergy Intermediate throat Verified 04/18/23 09:05 swells latex Allergy Mild rash,swelli Verified 04/18/23 09:05 ng aspirin AdvReac Intermediate stomach Verified 04/18/23 09:05 pain naproxen AdvReac Intermediate Nausea Verified 04/18/23 09:05 sumatriptan [From Imitrex] AdvReac Mild Makes Verified 04/18/23 09:05 headache worse wool Allergy Mild Skin Rash Uncoded 04/18/23 09:05 General Stated Complaint: DentalOral IVAN: 4 Review of Systems All systems reviewed & are unremarkable except as noted in HPI and below PFSH All Active Problems (Updated 04/20/23 @ 07:48 by Doni Ball DO) Dehydration (Acute) Nausea & vomiting (Acute) Ulceration of oral mucosa (Acute) Mucocele of lip (Acute) Chronic pelvic pain in female (Acute) Colitis (Acute) Nausea vomiting and diarrhea (Acute) Cephalgia (Acute) Medical History Anxiety Bipolar disorder Chest pain of uncertain etiology Cholecystitis Depression Dizzy spells Fatty liver GERD (gastroesophageal reflux disease) History of cannabis abuse History of tobacco abuse Hoarseness Irritable bowel syndrome (IBS) Migraine Obesity Oral mucosal lesion Restless leg syndrome Ventral hernia Surgical History Diagnostic Laproscopy 2003 [facility]. bilateral ovarian cystectomies 11/2009. Diagnostic laparoscopy for chronic RLQ pain after LAVH in 2009. EGD - MAC (12/16/16) H/O: hysterectomy History of left oophorectomy 07/10/22, left oophorectomy for pelvic pain. Abnormal hardened pelvic vessels noted. History of umbilical hernia repair (~09/13/19) Hysterectomy, Laproscopic (~11/2009) LAVH, ovarian conservation for dysmenorrhea Oophrectomy, Right (06/09/15) Laparoscopic RSO with L salpingectomy for R sided pelvic pain. R corpus luteum cyst. no pathology. R wrist cyst removal 10/2002 S/P laparoscopic cholecystectomy (~11/25/20) Status post appendectomy December 2021 - normal pathology Tooth extraction 07/2014 wisdom teeth extraction Social History Smoking/Tobacco Use Status: Current every day Tobacco Type: cigarettes Tobacco: How many years used: 13 Quit status: not considering quitting Smoking risk assessment performed?: Yes Alcohol Intake: current Alcohol Intake frequency: holidays/special occasions only Alcohol type: beer, wine and hard liquor Drug use: Occasionally Substance use type: marijuana Current gender identity: female Do you feel safe at home: Yes Do you feel safe in your relationship?: Yes Female Reproductive History Menstrual control method: permanent sterilization History History 2 2 Para 2 Hx # Term Pregnancies Multiple births Hx # Pregnancies Ectopic pregnancies AB induced Hx Number of Living Children AB spontaneous Past Pregnancies Del. Date GA/Weeks # Preg Succ Route Wgt Sex Labor Lgth Anesth esia Location [facility] 06/01/02 40 No Yes vaginal 3486.991 g Female [place], [place] 09/13/07 40 No Yes vaginal 4082.331 g Male [place], [place] Exam Narrative Exam Narrative: 1.Const: Well-nourished, Well-developed, appearing stated age 2.Eyes: PERRL, no conjunctival injection, and symmetrical lids. 3.ENT: Atraumatic external nose and ears. Notably dry MM. Neck: Symmetric, trachea midline, No thyromegaly. Lower lip on the left lateral aspect demonstrates a well-healing ulcerated lesion. No active bleeding. Mild swelling in the area. No evidence of abscess. 4.CVS: +S1/S2, No murmurs or gallops. Peripheral pulses 2+ and equal in all extremities. Brisk capillary refill in all extremities. 5.RESP: Unlabored respiratory effort. Clear to auscultation bilaterally. No wheezes rales or rhonchi 6.GI: Soft, Nontender/Nondistended, No hepatosplenomegaly. No guarding or rebound. 7.MSK: Normocephalic/Atraumatic, Extremities w/o deformity or ttp No cyanosis or clubbing, Normal movement of all extremities 8.Skin: Warm, Dry. No rashes or lesions. 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 Sensation grossly intact, no focal neurologic deficits. 10.Psych: (AAO) x3. Appropriate mood and affect Course Vital Signs Vital signs: Vital Signs Temperature 36.6 C 04/20/23 06:13 Pulse 69 04/20/23 06:13 Respiratory Rate 18 04/20/23 06:13 Blood Pressure 156/107 H 04/20/23 06:13 Pulse Oximetry 98 04/20/23 06:13 Temperature 36.6 C 04/20/23 06:13 Temperature Source Oral 04/20/23 06:13 Pulse 69 04/20/23 06:13 Respiratory Rate 18 04/20/23 06:13 Respiratory Effort Normal 04/20/23 06:21 Blood Pressure 156/107 H 04/20/23 06:13 Blood Pressure Position Supine 04/20/23 06:13 Pulse Oximetry 98 04/20/23 06:13 Oxygen Delivery Method Room Air 04/20/23 06:13 Oxygen Flow Rate 0 04/20/23 06:13 Pain Level 10 04/20/23 06:21 Lab/Test Results Lab/Test Results: Laboratory Tests Range/Units 04/20/23 06:30 WBC (4.4-10.8) 10^3/uL 6.58 RBC (3.93-5.22) 10^6/uL 4.97 Hgb (11.2-15.7) g/dL 14.8 Hct (36.0-46.0) % 44.0 MCV (80-95) fL 89 MCH (27.0-33.0) pg 29.8 MCHC (32.0-36.0) % 33.6 RDW (11.7-14.6) % 13.0 Plt Count (130-400) 10^3/uL 288 MPV (8.0-11.0) fL 9.6 Immature Gran % 0.2 Neutrophils % 57.5 Lymphocytes % 30.5 Monocytes % 8.4 Eosinophils % 2.3 Basophils % 1.1 Nucleated RBC % (0.0-0.3) % 0.0 Absolute Neutrophils (1.2-6.7) 10^3/uL 3.79 Absolute Lymphocytes (1.2-3.4) 10^3/uL 2.01 Absolute Monocytes (0.1-0.8) 10^3/uL 0.55 Absolute Eosinophils (0.0-0.7) 10^3/uL 0.15 Absolute Basophils (0.0-0.2) 10^3/uL 0.07 PAWSS Have you Been Recently Intoxicated or Drunk Within the Last 30 days?: No Have you Ever Experienced Previous Episodes of Alcohol Withdrawal?: No Have you ever Experienced Withdrawal Seizures?: No Have you ever Experienced Delirium Tremens(DT)s?: No Have you ever undergone Alcohol Rehabilitation Treatment (i.e, inpt ot outpatient treatment programs)?: No Have you ever Experienced Blackouts?: No Have you ever Combined Alcohol with other Downers within the last 90 days?: No Have you ever Combined Alcohol with any other Substance of Abuse during the last 90 days?: No Positive Blood Alcohol level on Presentation? [PCS.BAL]: No Evidence of Increased Autonomic Activity (i.e. HR>120, tremor, sweating, agitation, nausea)?: No Result: 0
[2023-04-20 07:10] LABS: ALT 70 U/L (14-59); AST 31 U/L (15-37); Albumin 3.4 g/dL (3.4-5.0); Alkaline Phosphatase 160 U/L (46-116); Anion Gap 8.5 mmol/L (3-11); BUN 16 mg/dL (7-18); Bilirubin, Total 0.4 mg/dL (0.2-1.0); CO2 26.5 mmol/L (21.0-32.0); CREATININE 1.3 mg/dL (0.55-1.02); Calcium 9.5 mg/dL (8.5-10.1); Chloride 103 mmol/L (98-107); Estimated GFR 53.64 (mL/min/1.73m2); Glucose 102 mg/dL (74-106); Lipase 27 U/L (16-77); Potassium 3.5 mmol/L (3.5-5.1); Sodium 138 mmol/L (136-145); Total Protein 7.6 g/dL (6.4-8.2)
[2023-04-20] MEDS: Ondansetron O.D.T. 4 MG TABEF, 3 TABS/BTL PO (08:08)
== END 2023-04-20 08:11 | disposition home or self-care (01) ==
LOC: ER 08:11
PROVIDERS: Emergency Provider Student in an Organized Health Care Education/Training Program; PCP Physician Assistant Medical
DX: E86.0 Dehydration (principal); R11.2 Nausea with vomiting, unspecified; K12.1 Other forms of stomatitis
CPT/HCPCS: 36415; 80053; 83690; 96361; 96374; 99283; 85025; J2405

== ENCOUNTER 2023-05-24 11:59 | Emergency (ER) | payer OTHER, MEDICAID, SELFPAY ==
[2023-05-24] VITALS (18 sets, daily range): BP systolic 125–153; BP diastolic 86–111; PULSE 58–80; RESP 18; O2SAT 94–100
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
[2023-05-24] MEDS: MORPHine 10 MG/ML VIAL 5 MG IVP (12:10)
[2023-05-24 12:23] LABS: Abs Immature Grans 0.02 10^3/uL (0.0-0.06); Absolute Basophil Count 0.08 10^3/uL (0.0-0.2); Absolute Eosinophil Count 0.08 10^3/uL (0.0-0.7); Absolute Lymphocyte Count 2.74 10^3/uL (1.2-3.4); Absolute Monocyte Count 0.49 10^3/uL (0.1-0.8); Absolute Neutrophil Count 3.72 10^3/uL (1.2-6.7); Basophils % 1.1; Eosinophils % 1.1; HCT 43.9 % (36.0-46.0); HGB 14.4 g/dL (11.2-15.7); Immature Grans % 0.3; Lymphocytes % 38.4; MCH 28.7 pg (27.0-33.0); MCHC 32.8 % (32.0-36.0); MCV 88 fL (80-95); MPV 10.4 fL (8.0-11.0); Monocytes % 6.9; Neutrophils % 52.2; Platelet Count 250 10^3/uL (130-400); RBC 5.01 10^6/uL (3.93-5.22); RDW 12.8 % (11.7-14.6); RDW-SD 41.1 fL; WBC 7.13 10^3/uL (4.4-10.8)
[2023-05-24 12:36] LABS: PTT Activated 26.9 sec (23.6-32.8); Prothrombin Time 10.3 sec (9.1-11.1)
[2023-05-24] MEDS: Normal Saline - Diluent 50 ML VIAL IJ (12:36)
[2023-05-24 12:38] LABS: ALT 51 U/L (14-59); AST 22 U/L (15-37); Albumin 3.5 g/dL (3.4-5.0); Alkaline Phosphatase 161 U/L (46-116); Anion Gap 5.3 mmol/L (3-11); BUN 13 mg/dL (7-18); Bilirubin, Total 0.2 mg/dL (0.2-1.0); CO2 27.7 mmol/L (21.0-32.0); CREATININE 1.2 mg/dL (0.55-1.02); Chloride 104 mmol/L (98-107); Estimated GFR 59.05 (mL/min/1.73m2); Glucose 94 mg/dL (74-106); Lipase 22 U/L (16-77); Sodium 137 mmol/L (136-145); Total Protein 7.3 g/dL (6.4-8.2)
[2023-05-24] MEDS: Omnipaque 350 MG/ML 100 ML BTL IJ (12:38)
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
[2023-05-24] MEDS: Droperidol 5 MG/2 ML VIAL IVP (13:04)
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
== END 2023-05-24 14:35 | disposition home or self-care (01) ==
PROVIDERS: Emergency Provider Emergency Medicine; PCP Physician Assistant Medical
DX: M54.2 Cervicalgia (principal); M54.6 Pain in thoracic spine; V47.5XXA Car driver injured in collision with fixed or stationary object in traffic accident, initial encounter
CPT/HCPCS: 74177; 80053; 83690; 96374; 96375; 99285; 70450; 71046; 71260; 72125; 84702; 85025; 85610; 85730; J1790; J2270; J3490

== ENCOUNTER 2023-07-14 13:32 | Emergency (ER) | payer MEDICAID, SELFPAY ==
[2023-07-14 13:41] VITALS: BP 145/92; PULSE 109; RESP 20; TEMP 37.1; O2SAT 96
--- NOTE | 2023-07-14 15:30 | DI.CT_ITS ---
Exam(s) CT ABDOMEN PELVIS W EXAM: CT ABDOMEN PELVIS W CLINICAL HISTORY: lower abd pain, vaginal bleeding. TECHNIQUE: Imaging Protocol: Axial computed tomography images with coronal and sagittal reformatted images were created and reviewed CONTRAST MATERIAL: Intravenous: Omnipaque-350 100cc Oral: None COMPARISON: CT CT CHEST/ABD/PEL W from 05/24/2023 CR,XR XR CHEST 2V PA LATERAL from 05/24/[address] THORACIC LUMBAR SPINE REC from 05/24/2023 FINDINGS: VISUALIZED LUNG BASES: No nodules nor pleural effusions evident. ABDOMEN: There is no ascites. LIVER: 2 adjacent benign cysts in the right hepatic lobe are again noted, unchanged. No new focal he patic lesions identified. No dilated intrahepatic ducts. GALLBLADDER/BILIARY: Gallbladder is again noted to be surgically absent. CBD is not dilated. PANCREAS: No evidence of pancreatic mass nor dilatation of the pancreatic duct. SPLEEN: Spleen size upper normal. No splenic lesions. Splenic and portal veins are patent. ADRENALS: There are no significant adrenal masses. KIDNEYS:No cysts evident. No solid renal masses. No calculi nor hydronephrosis.. ABDOMINAL AORTA: Abdominal aorta is not enlarged. LYMPH NODES:There is no retroperitoneal nor paraaortic adenopathy. ABDOMINAL WALL: There is an anterior abdominal wall midline periumbilical hernia which contains some streaky fat but no fluid nor bowel loops. There is no bowel obstruction, free air, nor abscess. GI: There is no evidence of bowel obstruction, free air, nor abscess. PELVIS: GI: The appendix is surgically absent.No evidence of sigmoid diverticulitis. LYMPH NODES: There is no intrapelvic nor inguinal adenopathy. REPRODUCTIVE: The uterus is surgically absent. There are no abnormal adnexal masses. No free fluid in the pelvis. URINARY BLADDER: No calculi nor obvious masses evident OSSEOUS: No fractures and no significant osseous lesions. IMPRESSION: 1. There is a small anterior abdominal wall periumbilical hernia which contains mesenteric fat but no bowel loops. There is no abnormal fluid collection in this region. This finding exhibits fairly al l change when compared to prior CT scan of 05/24/2023. There is no evidence of bowel obstruction, fr ee air, nor abscess. 2. There is evidence of previous hysterectomy, appendectomy, and cholecystectomy. Biliary tree is no t dilated. No ascites. 3. Two benign cysts in the liver appear unchanged. Discussed by phone with ER physician RADIATION DOSE DELIVERED: Total DLP DATA REPOSITORY: All CT scans at this facility are submitted to the National Radiology Data Registry (NRDR) Dose Index Registry (DIR) with the [employer] (A[employer]). RADIATION OPTIMIZATION: All CT scans at this facility use at least one of these dose optimization te chniques: automated exposure control; mA and/or kV adjustment per patient size (includes targeted exa ms where dose is matched to clinical indication); or iterative reconstruction.
--- NOTE | 2023-07-14 15:58 | ED.GENADUL_ITS ---
Discharge Plan Disposition Specific Critical Access Facility: [facility] Discharge Details Chief Complaint: Abd Prob Primary Care Provider: German Campa ED Provider: Steve Doyle Home Meds and New Rx's Prescriptions: No Action hydroxyzine HCl 25 mg tablet 25 mg PO QHS bupropion HCl [Wellbutrin SR] 100 mg tablet sustained-release 12 hr 100 mg PO DAILY ropinirole 1 MG tablet 2 mg PO HS omeprazole 40 mg capsule,delayed release(DR/EC) 40 cap PO HS Patient Comments: TAKE 1 CAPSULE BY MOUTH ONCE A DAY diclofenac sodium 50 mg tablet,delayed release (DR/EC) 50 mg PO Q12H PRNQty: 14 0RF venlafaxine 150 MG capsule,extended release 24hr 300 mg PO DAILY acetaminophen [Tylenol] 325 MG tablet 650 mg PO PRN PRN Medical Decision Making 1600 --38-year-old female status post remote hysterectomy, oophorectomy bilaterally, here with severe lower abdominal pain and associated vaginal bleeding. Patient has tenderness in her lower abdomen and suprapubic. Concern for intra-abdominal surgical process including SBO versus neoplasm. Plan to obtain CT of the abdomen pelvis. --Patient reassessed after Dilaudid and continues to have pain. 163 -- CT scanner is malfunctioning, not known when will be operational. I called closest appropriate nearby facility, [facility], I spoke with Dr. Hinojosa, discussed ED presentation and course and my plan for CT of the abdomen pelvis. He will except the patient in transfer and continue diagnostics. 1653 -- CT now functioning. Plan to proceed and will cancel transfer if able to obtain diagnostic imaging. Lab Data Lab results reviewed: Yes I reviewed the patient's lab results. Labs: Laboratory Tests Range/Units 07/14/23 07/14/23 15:24 16:11 WBC (4.4-10.8) 10^3/uL 7.01 RBC (3.93-5.22) 10^6/uL 4.99 Hgb (11.2-15.7) g/dL 14.6 Hct (36.0-46.0) % 43.0 MCV (80-95) fL 86 MCH (27.0-33.0) pg 29.3 MCHC (32.0-36.0) % 34.0 RDW (11.7-14.6) % 14.0 Plt Count (130-400) 10^3/uL 239 MPV (8.0-11.0) fL 10.2 Immature Gran % 0.3 Neutrophils % 82.0 Lymphocytes % 9.8 Monocytes % 6.6 Eosinophils % 0.3 Basophils % 1.0 Nucleated RBC % (0.0-0.3) % 0.0 Absolute Neutrophils (1.2-6.7) 10^3/uL 5.75 Absolute Lymphocytes (1.2-3.4) 10^3/uL 0.69 L Absolute Monocytes (0.1-0.8) 10^3/uL 0.46 Absolute Eosinophils (0.0-0.7) 10^3/uL 0.02 Absolute Basophils (0.0-0.2) 10^3/uL 0.07 VBG Lactate (0.6-1.4) mmol/L 0.8 Sodium (136-145) mmol/L 138 Potassium (3.5-5.1) mmol/L 4.1 Chloride (98-107) mmol/L 102 Carbon Dioxide (21.0-32.0) mmol/L 26.6 Anion Gap (3-11) mmol/L 9.4 BUN (7-18) mg/dL 11 Creatinine (0.55-1.02) mg/dL 1.1 H Est GFR (CKD-EPI 2020) (mL/min/1.73m2) 65.55 Glucose (74-106) mg/dL 90 Calcium (8.5-10.1) mg/dL 9.2 Total Bilirubin (0.2-1.0) mg/dL 0.3 AST (15-37) U/L 42 H ALT (14-59) U/L 96 H Alkaline Phosphatase (46-116) U/L 212 H Total Protein (6.4-8.2) g/dL 7.6 Albumin (3.4-5.0) g/dL 3.4 Lipase (16-77) U/L 81 H HPI General Mode of arrival: ambulatory . Date/Time Provider Initiated Documentation: 07/14/23 13:45 . Limitations to Documentation: no limitations . Information obtained by: patient . HPI Narrative: 38-year-old female presents with chief complaint of abdominal pain. Patient notes severe lower abdominal pain that started 4 days ago and has persisted. Pain is now severe and sharp. She notes associated vaginal bleeding that is moshe cribed as spotting. Of note, patient has had remote hysterectomy and bilateral oophorectomy. No urinary symptoms. Related Data Home Medications Medication Instructions Recorded Confirmed ropinirole 1 mg tablet 2 mg PO HS 06/08/15 07/14/23 venlafaxine 150 mg 300 mg PO DAILY 12/17/16 07/14/23 capsule,extended release 24 hr acetaminophen 325 mg tablet 650 mg PO PRN PRN 04/16/17 07/14/23 (Tylenol) omeprazole 40 mg capsule,delayed 40 cap PO HS 12/29/21 07/14/23 release diclofenac sodium 50 mg 50 mg PO Q12H PRN #14 tabs 01/25/22 07/14/23 tablet,delayed release bupropion HCl 100 mg tablet,12 hr 100 mg PO DAILY 03/18/23 07/14/23 sustained-release (Wellbutrin SR) hydroxyzine HCl 25 mg tablet 25 mg PO QHS 03/18/23 07/14/23 Previous Rx's Medication Instructions Recorded diclofenac sodium 50 mg 50 mg PO Q12H PRN #14 tabs 01/25/22 tablet,delayed release Allergies Allergy/AdvReac Type Severity Reaction Status Date / Time Penicillins Allergy Severe Swelling Verified 05/24/23 13:10 in throat granda flavor Allergy Intermediate throat Verified 05/24/23 13:10 bleeds,swelling kiwi Allergy Intermediate throat Verified 05/24/23 13:10 swells latex Allergy Mild rash,swelli Verified 05/24/23 13:10 ng aspirin AdvReac Intermediate stomach Verified 05/24/23 13:10 pain naproxen AdvReac Intermediate Nausea Verified 05/24/23 13:10 sumatriptan [From Imitrex] AdvReac Mild Makes Verified 05/24/23 13:10 headache worse wool Allergy Mild Skin Rash Uncoded 05/24/23 13:10 General Stated Complaint: Abd Prob IVAN: 3 Review of Systems All systems reviewed & are unremarkable except as noted in HPI and below Constitutional Constitutional: Denies fever(s) Genitourinary Genitourinary: Reports as per HPI PFSH All Active Problems Mucocele of lip (Acute) Chronic pelvic pain in female (Acute) Colitis (Acute) Nausea vomiting and diarrhea (Acute) Cephalgia (Acute) Medical History Fatty liver Chest pain of uncertain etiology Oral mucosal lesion Hoarseness Irritable bowel syndrome (IBS) History of tobacco abuse Depression Bipolar disorder Obesity Ventral hernia History of cannabis abuse Dizzy spells Cholecystitis GERD (gastroesophageal reflux disease) Restless leg syndrome Anxiety Migraine Surgical History History of left oophorectomy 07/10/22, left oophorectomy for pelvic pain. Abnormal hardened pelvic vessels noted. Status post appendectomy December 2021 - normal pathology H/O: hysterectomy S/P laparoscopic cholecystectomy (~11/25/20) History of umbilical hernia repair (~09/13/19) R wrist cyst removal 10/2002 Oophrectomy, Right (06/09/15) Laparoscopic RSO with L salpingectomy for R sided pelvic pain. R corpus luteum cyst. no pathology. Hysterectomy, Laproscopic (~11/2009) LAVH, ovarian conservation for dysmenorrhea EGD - MAC (12/16/16) Diagnostic Laproscopy [facility] bilateral ovarian cystectomies 11/2009. Diagnostic laparoscopy for chronic RLQ pain after LAVH in 2009. Tooth extraction 07/2014 wisdom teeth extraction Social History Smoking/Tobacco Use Status: Current every day Tobacco Type: cigarettes Tobacco: How many years used: 13 Quit status: not considering quitting Smoking risk assessment performed?: Yes Alcohol Intake: current Alcohol Intake frequency: holidays/special occasions only Alcohol type: beer, wine and hard liquor Drug use: Occasionally Substance use type: marijuana Current gender identity: female Do you feel safe at home: Yes Do you feel safe in your relationship?: Yes Female Reproductive History Menstrual control method: permanent sterilization History History 2 Para 2 Hx # Term Pregnancies Multiple births Hx # Pregnancies Ectopic pregnancies AB induced Hx Number of Living Children AB spontaneous Past Pregnancies Del. Date GA/Weeks # Preg Succ Route Wgt Sex Labor Lgth Anesth esia Location Prov Complic 06/01/02 40 No Yes vaginal 3486.991 g Female [facility], [place] 09/13/07 40 No Yes vaginal 4082.[address] [facility], [place] Exam Const General: cooperative HENWV Mouth: moist mucous membranes Eyes Conjunctivae: normal conjunctivae Sclera: normal sclerae Neck Neck: trachea midline Resp Auscultation: clear to auscultation bilaterally, no rales, no rhonchi and no wheezes Cardio Rate: tachycardic Rhythm: regular rhythm GI Palpation: soft, not firm, no guarding, no masses, not rigid and tender in the LLQ and in the RLQ Auscultation: normal bowel sounds Skin General skin exam: no rashes or lesions noted Neuro General: patient alert, patient awake and tone normal Extrem General: no edema Psych Appearance: grossly normal Mental Status: mental status grossly normal Course Vital Signs Vital signs: Vital Signs Temperature 37.1 C 07/14/23 13:41 Pulse 109 H 07/14/23 13:41 Respiratory Rate 20 07/14/23 13:41 Blood Pressure 145/92 H 07/14/23 13:41 Pulse Oximetry 96 07/14/23 13:41 Temperature 37.1 C 07/14/23 13:41 Temperature Source Temporal Artery Scan 07/14/23 13:41 Pulse 109 H 07/14/23 13:41 Respiratory Rate 20 07/14/23 13:41 Respiratory Effort Normal 07/14/23 15:17 Blood Pressure 145/92 H 07/14/23 13:41 Blood Pressure Position Sitting 07/14/23 13:41 Pulse Oximetry 96 07/14/23 13:41 Oxygen Delivery Method Room Air 07/14/23 13:41 Oxygen Flow Rate 0 07/14/23 13:41
[2023-07-14] MEDS: HYDROmorphone 2 MG/ML SYR 1 MG IVP (16:01)
[2023-07-14 16:14] LABS: Abs Immature Grans 0.02 10^3/uL (0.0-0.06); Absolute Basophil Count 0.07 10^3/uL (0.0-0.2); Absolute Eosinophil Count 0.02 10^3/uL (0.0-0.7); Absolute Lymphocyte Count 0.69 10^3/uL (1.2-3.4); Absolute Monocyte Count 0.46 10^3/uL (0.1-0.8); Absolute Neutrophil Count 5.75 10^3/uL (1.2-6.7); Eosinophils % 0.3; HGB 14.6 g/dL (11.2-15.7); Immature Grans % 0.3; Lymphocytes % 9.8; MCH 29.3 pg (27.0-33.0); MCV 86 fL (80-95); MPV 10.2 fL (8.0-11.0); Monocytes % 6.6; Platelet Count 239 10^3/uL (130-400); RBC 4.99 10^6/uL (3.93-5.22); RDW-SD 43.9 fL; WBC 7.01 10^3/uL (4.4-10.8)
[2023-07-14 16:15] VITALS: TEMP 37.2
[2023-07-14 16:15] LABS: Lactate 0.8 mmol/L (0.6-1.4)
[2023-07-14 16:32] LABS: ALT 96 U/L (14-59); AST 42 U/L (15-37); Albumin 3.4 g/dL (3.4-5.0); Alkaline Phosphatase 212 U/L (46-116); Anion Gap 9.4 mmol/L (3-11); BUN 11 mg/dL (7-18); Bilirubin, Total 0.3 mg/dL (0.2-1.0); CO2 26.6 mmol/L (21.0-32.0); CREATININE 1.1 mg/dL (0.55-1.02); Calcium 9.2 mg/dL (8.5-10.1); Chloride 102 mmol/L (98-107); Estimated GFR 65.55 (mL/min/1.73m2); Glucose 90 mg/dL (74-106); Lipase 81 U/L (16-77); Potassium 4.1 mmol/L (3.5-5.1); Sodium 138 mmol/L (136-145); Total Protein 7.6 g/dL (6.4-8.2)
[2023-07-14] MEDS: Normal Saline - Diluent 50 ML VIAL IJ (17:03)
[2023-07-14] MEDS: Omnipaque 350 MG/ML 100 ML BTL IJ (17:05)
[2023-07-14] MEDS: Ketamine 500 MG/10 ML VIAL 31 MG IVP (18:00)
--- NOTE | 2023-07-14 19:39 | ED.PROG_ITS ---
Date of service: 07/14/23 Time of Service: 19:39 Medical Decision Making I received signout on this 38-year-old female with pelvic pain. I spoke with Dr. Altman from [employer]. She had assessed the patient. She agreed with empiric treatment for PID. We will wait on the vaginal organisms swab to return and reassess the patient. Will provide her with a regular diet. 9 PM Urinalysis not consistent with infection nitrite leukoesterase negative. No hematuria. 9:40 PM I called the lab and reportedly her vaginal organism assessment will not be completed this evening as we do not unfortunately have reagents. I met with the patient and I offered her hospitalization for her pain as she was still feeling uncomfortable. She declined and wanted to rest at home. She has been newly tachycardic in the emergency department today. Will repeat her heart rate. Will treat patient for PID with intramuscular ceftriaxone at 500 mg IM times 1+ doxycycline 100 mg twice daily for 14 days plus metronidazole 500 mg twice daily for 14 days. Patient and I discussed return indications including worsening pain and fevers. She understood her return indications and well proceed with empiric trial of expectant outpatient management. 10:11 PM Patient asked for a work note which I printed for her. Tachycardia resolved in the ED. Sign Out Sign Out Data: Sign Out Comment: Patient is here with severe lower abdominal pain and vaginal bleeding. She is status post hysterectomy and oophorectomy as well as appendectomy and cholecystectomy. Patient received Dilaudid 1 mg IV for pain. She continues to have pain. I will give ketamine some dissociative dose 0.3 mg/kg IV. CT of the abdomen pelvis interpreted by radiology: No acute intra- abdominal process. Small periumbilical hernia noted. Plan at signout is to reassess patient for disposition. Last updated by Steve Doyle MD at 07/14/23 17:47 Discharge Plan Disposition Patient Disposition: Home Discharge Details Clinical Impression: Abdominal pain Primary Care Provider: German Campa ED Provider: Taran Saab Home Meds and New Rx's Prescriptions: New metronidazole 500 mg tablet 500 mg PO BID 14 Days Qty: 28 0RF doxycycline hyclate 100 mg capsule 100 mg PO BID 14 Days Qty: 28 0RF No Action hydroxyzine HCl 25 mg tablet 25 mg PO QHS bupropion HCl [Wellbutrin SR] 100 mg tablet sustained-release 12 hr 100 mg PO DAILY ropinirole 1 MG tablet 2 mg PO HS omeprazole 40 mg capsule,delayed release(DR/EC) 40 cap PO HS Patient Comments: TAKE 1 CAPSULE BY MOUTH ONCE A DAY diclofenac sodium 50 mg tablet,delayed release (DR/EC) 50 mg PO Q12H PRNQty: 14 0RF venlafaxine 150 MG capsule,extended release 24hr 300 mg PO DAILY acetaminophen [Tylenol] 325 MG tablet 650 mg PO PRN PRN Discharge Instructions Instructions: Abdominal Pain (ED) Additional Instructions: You are seen in the emergency department for your abdominal pain. Your CAT scan showed no acute abnormalities. You are receiving treatment for pelvic inflammatory disease with antibiotics. Please take these as directed. Please return to the emergency department, as we discussed if you have worsening pain develop any fevers or cannot eat or drink. Stand Alone Forms: Work Release Discharge Data Discharge Date/Time-TO BE ENTERED AT DEPARTURE: 07/14/23 22:16
--- NOTE | 2023-07-14 19:43 | GCONE_ITS ---
Date of service: 07/14/23 Time of Service: 19:43 Assessment and Plan Assessment and plan (1) Pelvic pain in female: Status: Inactive Assessment and plan: Uncertain as to the origin of her pelvic pain. She no longer has her uterus/cervix, ovaries or tubes. She is known to have sclerotic pelvic vessels. Her pain is significant in multiple locations including outer vagina, suprapubic area, b/l flanks. No clear e/o infection. Will await vag path swab and treat empirically for GC/Chlamydia. [place] plan [place] [facility] [place] Call with further concerns or questions. History of Present Illness History of Present Illness Chief Complaint: pelvic pain Narrative: Pt reports a 4 day history of pelvic pain. She says it has gotten increasingly worse. She describes pain across her lower abdomen that radiates into her legs and her back. She says she had a little bit of bleeding the past few days but not today. No abnormal discharge. She denies urinary sxms. She says she has had normal BMs but does report increased pressure and pain prior to having a BM. Today she reports nausea that she says is because of the pain. She has been able to eat some. She says it is constant though worse with movement. Reports feeling achy and warm but did not check a fever. She is s/p total hysterectomy, then RSO, then dx lap and LSO about a year ago for persistent pelvic pain at which time she was noted to have abnormal sclerotic appearing pelvic vessels. She has had intermittent chronic pelvic pain for many years. Review of Systems Genitourinary Genitourinary: Reports system reviewed and no additional complaints, except as documented PFSH All Active Problems (Updated 07/16/23 @ 13:11 by Brunilda Altman MD) Pelvic deform NOS-unspec (Acute) abnormally hardened pelvic vessels Abdominal pain (Acute) Mucocele of lip (Acute) Chronic pelvic pain in female (Acute) Colitis (Acute) Nausea vomiting and diarrhea (Acute) Cephalgia (Acute) Medical History Fatty liver Chest pain of uncertain etiology Oral mucosal lesion Hoarseness Irritable bowel syndrome (IBS) History of tobacco abuse Depression Bipolar disorder Obesity Ventral hernia History of cannabis abuse Dizzy spells Cholecystitis GERD (gastroesophageal reflux disease) Restless leg syndrome Anxiety Migraine Surgical History History of left oophorectomy 07/10/22, left oophorectomy for pelvic pain. Abnormal hardened pelvic vessels noted. Status post appendectomy December 2021 - normal pathology H/O: hysterectomy S/P laparoscopic cholecystectomy (~11/25/20) History of umbilical hernia repair (~09/13/19) R wrist cyst removal 10/2002 Oophrectomy, Right (06/09/15) Laparoscopic RSO with L salpingectomy for R sided pelvic pain. R corpus luteum cyst. no pathology. Hysterectomy, Laproscopic (~11/2009) LAVH, ovarian conservation for dysmenorrhea EGD - MAC (12/16/16) Diagnostic Laproscopy [facility] bilateral ovarian cystectomies 11/2009. Diagnostic laparoscopy for chronic RLQ pain after LAVH in 2009. Tooth extraction 07/2014 wisdom teeth extraction Social History Smoking/Tobacco Use Status: Current every day Tobacco Type: cigarettes Tobacco: How many years used: 13 Quit status: not considering quitting Smoking risk assessment performed?: Yes Alcohol Intake: current Alcohol Intake frequency: holidays/special occasions only Alcohol type: beer, wine and hard liquor Drug use: Occasionally Substance use type: marijuana Current gender identity: female Do you feel safe at home: Yes Do you feel safe in your relationship?: Yes Female Reproductive History Menstrual control method: permanent sterilization History History 2 2 Para 2 Hx # Term Pregnancies Multiple births Hx # Pregnancies Ectopic pregnancies AB induced Hx Number of Living Children AB spontaneous Past Pregnancies Del. Date GA/Weeks # Preg Succ Route Wgt Sex Labor Lgth Anesth esia Location Prov Complic 06/01/02 40 No Yes vaginal 7 lb 11 oz Female [facility] 09/13/07 40 No Yes vaginal 9 lb Male [facility] Exam Const General: cooperative, healthy appearing and acute distress mild Orientation: alert, awake and oriented x3 Resp Effort & Inspection: normal respiratory effort and able to speak in complete sentences GI Other: Mild tenderness to palpation around the umbilicus and midabdomen. Moderate tenderness to even light palpation across the suprapubic area and to either side, very low almost over the mons pubis. Moderate flank tenderness b/l. Speculum Exam - Vagina: normal appearance of the vagina, normal vaginal discharge, No vaginal bleeding and tenderness (throughout entire exam) OB/External & Speculum: No vaginal bleeding Other: Significant tenderness throughout vaginal exam even without deeper palpation of the vaginal cuff. No evidence of any abnormality of the vagina. No blood noted. No significant bladder tenderness. Results Last Vital Signs Temp 98.9 F 07/14/23 16:15 Pulse 109 H 07/14/23 13:41 Resp 20 07/14/23 13:41 BP 145/92 H 07/14/23 13:41 Pulse Ox 96 07/14/23 13:41 Labs 07/14/23 15:24 07/14/23 15:24 Labs: Laboratory Results - last 24 hr 07/14/23 07/14/23 15:24 16:11 WBC 7.01 RBC 4.99 Hgb 14.6 Hct 43.0 MCV 86 MCH 29.3 MCHC 34.0 RDW 14.0 Plt Count 239 MPV 10.2 Immature Gran % 0.3 Neutrophils % 82.0 Lymphocytes % 9.8 Monocytes % 6.6 Eosinophils % 0.3 Basophils % 1.0 Nucleated RBC % 0.0 Absolute Neutrophils 5.75 Absolute Lymphocytes 0.69 L Absolute Monocytes 0.46 Absolute Eosinophils 0.02 Absolute Basophils 0.07 VBG Lactate 0.8 Sodium 138 Potassium 4.1 Chloride 102 Carbon Dioxide 26.6 Anion Gap 9.4 BUN 11 Creatinine 1.1 H Est GFR (CKD-EPI 2020) 65.55 Glucose 90 Calcium 9.2 Total Bilirubin 0.3 AST 42 H ALT 96 H Alkaline Phosphatase 212 H Total Protein 7.6 Albumin 3.4 [address] scan - pelvis: report reviewed Imaging Studies: No pelvic abnormalities.
[2023-07-14 20:32] LABS: Bilirubin Negative (Negative); Blood Negative (Negative); Clarity Clear (Clear); Glucose Negative (Negative); Ketones Negative (Negative); Leukocyte Esterase Negative (Negative); Nitrite Negative (Negative); Urobilinogen 0.2 mg/dL (Up to 0.2)
[2023-07-14 21:46] VITALS: PULSE 76; O2SAT 97
[2023-07-14] MEDS: Doxycycline Hyclate 100 MG CAP PO (22:10)
[2023-07-14] MEDS: cefTRIAXone 1 GM VIAL 0.5 GM IM (22:10)
[2023-07-14] MEDS: metroNIDAZOLE 500 MG TAB PO (22:11)
[2023-07-14 22:12] VITALS: BP 134/90; PULSE 64; RESP 16; TEMP 37; O2SAT 95
[2023-07-16 15:29] LABS: Chlamydia Result Negative (Negative); GC Result Negative (Negative)
--- NOTE | 2023-07-17 07:41 | W.ED.FU ---
Date of service: 07/17/23 Time of Service: 07:41 Follow Up Plan: Negative vaginal pathogen screen.
== END 2023-07-14 22:16 | disposition home or self-care (01) ==
PROVIDERS: Student in an Organized Health Care Education/Training Program; Emergency Provider Emergency Medicine; PCP Physician Assistant Medical
DX: R10.2 Pelvic and perineal pain (principal); N39.0 Urinary tract infection, site not specified; Z90.710 Acquired absence of both cervix and uterus; Z90.49 Acquired absence of other specified parts of digestive tract
CPT/HCPCS: 00123; 80053; 83690; 87491; 87591; 96372; 96374; 96375; 99285; 74177; 81003; 83605; 85025; 87480; 87510; 87660; 99284; J0696; J1170; J3490

== ENCOUNTER 2023-07-20 17:42 | Emergency (ER) | payer MEDICAID, SELFPAY ==
[2023-07-20] VITALS (21 sets, daily range): BP systolic 126–160; BP diastolic 82–112; PULSE 61–81; RESP 20; TEMP 36.5; O2SAT 96–100
--- NOTE | 2023-07-20 17:44 | W.ED.GENAD ---
Discharge Plan Disposition Patient Disposition: Home Discharge Details Clinical Impression: Syncope Primary Care Provider: German Campa ED Provider: Taran Saab Home Meds and New Rx's Prescriptions: Continued hydroxyzine HCl 25 mg tablet 25 mg PO QHS bupropion HCl [Wellbutrin SR] 100 mg tablet sustained-release 12 hr 100 mg PO DAILY Hold Instructions: Pt Stopped/Never Started ropinirole 1 MG tablet 2 mg PO HS omeprazole 40 mg capsule,delayed release(DR/EC) 40 cap PO HS Patient Comments: TAKE 1 CAPSULE BY MOUTH ONCE A DAY diclofenac sodium 50 mg tablet,delayed release (DR/EC) 50 mg PO Q12H PRNQty: 14 0RF metronidazole 500 mg tablet 500 mg PO BID 14 Days Qty: 28 0RF doxycycline hyclate 100 mg capsule 100 mg PO BID 14 Days Qty: 28 0RF venlafaxine 150 MG capsule,extended release 24hr 300 mg PO DAILY acetaminophen [Tylenol] 325 MG tablet 650 mg PO PRN PRN Discharge Instructions Instructions: Syncope (ED) Additional Instructions: You were seen in the emergency department for your episode of fainting. Your CAT scan showed no sign of any bleeding in your head. No signs of any fractures in your neck either. Your blood work shows that your kidneys are working well and that you are not anemic. Please return to the emergency department if you develop nausea vomiting chest pain or any difficulty breathing. For your pain please take medications as follows: 1. Take acetaminophen (Tylenol), 1,000 mg (two 500 mg tabs) every 6 hours 2. Take ibuprofen (Advil), 400 mg every 6 hours. Stand Alone Forms: Work Release Discharge Data Discharge Date/Time-TO BE ENTERED AT DEPARTURE: 07/20/23 21:29 HPI General Date/Time Provider Initiated Documentation: 07/20/23 17:44. HPI Narrative: MDM This is an overall very well-appearing normothermic and not tachycardic 38-year-old vaccinated female with recent COVID now with syncope and head strike for which patient will undergo imaging. No preceding chest pain tachycardia no hypoxia to suggest PE and patient is PERC negative so I did not send a D-dimer. Patient has had chest pain since her fall so we will obtain ECG check a chest x-ray to assess for pneumothorax and obtain troponins. Clear equal breath sounds so I am not concerned for pneumothorax. No pain out of proportion to suggest necrotizing soft tissue infection. No hypoxia to suggest benefit from dexamethasone nor need for hospitalization. Given neck pain will obtain CT cervical spine. No black nor bloody stools to suggest acute blood loss anemia. No history of CHF nor lower extremity edema. Patient has not had anything to eat by mouth today. Will provide 1 L of IV fluids, IV acetaminophen given headache and ondansetron. Headache was not sudden in onset so my suspicion is low for subarachnoid hemorrhage. No recent generator exposure to suggest carbon monoxide toxicity. No anterior neck pain to suggest cervical arterial dissection. Patient does have neck pain at the moment but this has been since her fall and as a result I am not suspicion for cervical arterial dissection is low. Patient is obese however however given COVID infection and decreased p.o. my suspicion for idiopathic intracranial hypertension is low so we will defer lumbar puncture at this point in time. No fevers so doubt meningitis. Not altered to suggest encephalitis. No tonic-clonic activity to suggest seizure. Given that she felt sweaty before she fell it is certainly possible that she could have had a vasovagal syncopal episode. 6:27 PM CBC lacks anemia thrombocytopenia and leukocytosis. Basic metabolic panel showing no ELIAZAR no acute electrolyte abnormalities. Negative hCG. 6:45 PM Reassuring negative troponin. Patient c-collar was cleared following imaging. 9:23 PM Repeat troponin negative. Patient was discharged with an empiric trial of expectant outpatient management. I sent her with a work note for several days off of work.I advised ED return for any recurrent syncope. In the setting of syncope I considered: High risk features: 1. Age of the patient (elderly a greatest risk) 2. Syncope during exertion 3. Family history of sudden [place] syncope rule: 1. History of CHF 2. Hematocrit < 30 3. EKG abnormalities 4. Present shortness of breath 5. Systolic blood pressure less than 90 Cardiac arrhythmia/EKG or abnormalities considered: 1. ACS: No ST changes 2. Tachy-kanu: No blocks 3. WPW: No delta wave 4. Brugada: No RSR'; R-bundle appearance 5. HCM: No LVH; needle Qs/ T-wave inversions 6. Short/ Long QT: 300 < QTc < 500; no family hx 7. 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 Normal axis. Interventricular conduction delay with a QRS of 103 ms. IL and QTc within normal limits. No ST segment abnormalities. No T wave inversions.Appears similar compared to prior dated earlier this year. No acute injury pattern. Medications: Acetaminophen ibuprofen ondansetron Social determinants of health affecting disposition: N/A Management discussed with: N/A Treatment/interventions considered: N/A Response to therapies provided: Patient felt improved in the ED HPI This is a 38-year-old female with a history of elevated BMI and recent COVID infection 3 days ago arrived to the emergency department via ambulance in the setting of a syncopal episode. Patient has had a headache all day as result for COVID infection. She has not had anything to eat or drink today as result of nausea and vomiting. 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 She reportedly hit her head and subsequently developed pain in the back of her neck. She felt sweaty before she fell. From her vomiting she has developed chest pain. She endorses a central chest pain that does not radiate. No hemoptysis and not on any oral contraceptive pills. Patient denies dysuria frequency. No shortness of breath. Patient daily smoker but denies routine ethanol. She occasionally smokes marijuana. She is not having abdominal pain but endorses nausea and vomiting. She has not been able to keep anything down today. Exam General: Well-appearing in no acute distress speaking in complete sentences. Head: Normocephalic, atraumatic. Eye:[Pupils equal, round reactive to light.] Extraocular eye movements intact. No conjunctival injection. No scleral icterus. Ear, nose, mouth, throat: Grossly normal inspection. Normal voice, handling secretions normally. Neck: Trachea midline. Wearing c-collar. Midline cervical spinal tenderness. Cardiovascular: Well-perfused distal extremities. Regular rate and rhythm Respiratory: Nonlabored respiration. Clear lungs bilaterally Gastrointestinal: Nondistended abdomen. Soft nontender Musculoskeletal: No edema. Moving all 4 extremities spontaneously. Skin: Normal for age and race, grossly normal temperature and turgor. No acute rash. Neurologic: Alert and appropriate, no apparent acute deficits. GCS 15 Psychiatric: Mood and manner are appropriate. Grooming and personal hygiene are appropriate. Related Data Home Medications Medication Instructions Recorded Confirmed ropinirole 1 mg tablet 2 mg PO HS 06/08/15 07/20/23 venlafaxine 150 mg 300 mg PO DAILY 12/17/16 07/20/23 capsule,extended release 24 hr acetaminophen 325 mg tablet 650 mg PO PRN PRN 04/16/17 07/20/23 (Tylenol) omeprazole 40 mg capsule,delayed 40 cap PO HS 12/29/21 07/20/23 release diclofenac sodium 50 mg 50 mg PO Q12H PRN #14 tabs 01/25/22 07/20/23 tablet,delayed release bupropion HCl 100 mg tablet,12 hr 100 mg PO DAILY 03/18/23 07/20/23 sustained-release (Wellbutrin SR) hydroxyzine HCl 25 mg tablet 25 mg PO QHS 03/18/23 07/20/23 doxycycline hyclate 100 mg capsule 100 mg PO BID 14 days #28 caps 07/14/23 07/20/23 metronidazole 500 mg tablet 500 mg PO BID 14 days #28 tabs 07/14/23 07/20/23 Previous Rx's Medication Instructions Recorded diclofenac sodium 50 mg 50 mg PO Q12H PRN #14 tabs 01/25/22 tablet,delayed release doxycycline hyclate 100 mg capsule 100 mg PO BID 14 days #28 caps 07/14/23 metronidazole 500 mg tablet 500 mg PO BID 14 days #28 tabs 07/14/23 Allergies Allergy/AdvReac Type Severity Reaction Status Date / Time Penicillins Allergy Severe Swelling Verified 07/20/23 17:51 in throat granda flavor Allergy Intermediate throat Verified 07/20/23 17:51 bleeds,swelling kiwi Allergy Intermediate throat Verified 07/20/23 17:51 swells latex Allergy Mild rash,swelli Verified 07/20/23 17:51 ng aspirin AdvReac Intermediate stomach Verified 07/20/23 17:51 pain naproxen AdvReac Intermediate Nausea Verified 07/20/23 17:51 sumatriptan [From Imitrex] AdvReac Mild Makes Verified 07/20/23 17:51 headache worse wool Allergy Mild Skin Rash Uncoded 07/20/23 17:51 General IVAN: 3 PFSH All Active Problems (Updated 07/20/23 @ 20:49 by Taran Saab MD) Syncope (Chronic) Pelvic deform NOS-unspec (Acute) abnormally hardened pelvic vessels Abdominal pain (Acute) Mucocele of lip (Acute) Chronic pelvic pain in female (Acute) Colitis (Acute) Nausea vomiting and diarrhea (Acute) Cephalgia (Acute) Medical History Fatty liver Chest pain of uncertain etiology Oral mucosal lesion Hoarseness Irritable bowel syndrome (IBS) History of tobacco abuse Depression Bipolar disorder Obesity Ventral hernia History of cannabis abuse Dizzy spells Cholecystitis GERD (gastroesophageal reflux disease) Restless leg syndrome Anxiety Migraine Surgical History History of left oophorectomy 07/10/22, left oophorectomy for pelvic pain. Abnormal hardened pelvic vessels noted. Status post appendectomy December 2021 - normal pathology H/O: hysterectomy S/P laparoscopic cholecystectomy (~11/25/20) History of umbilical hernia repair (~09/13/19) R wrist cyst removal 10/2002 Oophrectomy, Right (06/09/15) Laparoscopic RSO with L salpingectomy for R sided pelvic pain. R corpus luteum cyst. no pathology. Hysterectomy, Laproscopic (~11/2009) LAVH, ovarian conservation for dysmenorrhea EGD - MAC (12/16/16) Diagnostic Laproscopy [facility] bilateral ovarian cystectomies 11/2009. Diagnostic laparoscopy for chronic RLQ pain after LAVH in 2009. Tooth extraction 07/2014 wisdom teeth extraction Social History Smoking/Tobacco Use Status: Current every day Tobacco Type: cigarettes Tobacco: How many years used: 13 Quit status: not considering quitting Smoking risk assessment performed?: Yes Alcohol Intake: current Alcohol Intake frequency: holidays/special occasions only Alcohol type: beer, wine and hard liquor Drug use: Occasionally Substance use type: marijuana Current gender identity: female Do you feel safe at home: Yes Do you feel safe in your relationship?: Yes Female Reproductive History Menstrual control method: permanent sterilization History History 2 Para 2 Hx # Term Pregnancies Multiple births Hx # Pregnancies Ectopic pregnancies AB induced Hx Number of Living Children AB spontaneous Past Pregnancies Del. Date GA/Weeks # Preg Succ Route Wgt Sex Labor Lgth Anesthesia Location Prov Complic 06/01/02 40 No Yes vaginal 3486.991 g Female [place], [place] 09/13/07 40 No Yes vaginal 4082.331 g Male [place], [place]
--- NOTE | 2023-07-20 17:45 | RT.EKG_ITS ---
APPROVED REPORT Exam: Resting ECG Reason for Exam: SYNCOPE Patient Location: E HR:68 bpm ECG Measurements Heart Rate 68 AXIS MI 143 P 54 QRSd 103 QRS 45 QT 422 T 26 QTc 450 Conclusion Sinus rhythm...normal P axis, V-rate 60- 99 Normal sinus rhythm at a rate of 68. Normal axis. Interventricular conduction delay with a QRS of 1 03 ms. MI and QTc within normal limits. No ST segment abnormalities. No T wave inversions.Appears similar compared to prior dated earlier this year. No acute injury pattern.
--- NOTE | 2023-07-20 18:00 | DI.CT_ITS ---
Exam(s) CT HEAD CERVICAL SPINE WO EXAM: CT HEAD CERVICAL SPINE WO CLINICAL HISTORY: Head strike fall. TECHNIQUE: Imaging Protocol: Axial computed tomography images with coronal and sagittal reformatted images were created and reviewed COMPARISON: CT CT HEAD CERVICAL SPINE WO from 05/24/2023 FINDINGS: BRAIN: There are no skull fractures nor fluid in the visualized paranasal sinuses. There is no evidence of intracranial hemorrhage, mass effect, or shift of midline structures. There are no extra-axial fluid collections. The ventricles are not enlarged or shifted and there is no blo od within the ventricular system nor within the basal cisterns. CERVICAL SPINE: There is no evidence of fracture nor listhesis. No significant prevertebral soft tissue swelling. There is no significant facet joint malalignment. No significant osseous lesions evident. IMPRESSION: No acute intracranial findings on this noninfused CT scan of the brain. No evidence of cervical spine fracture, malalignment, nor acute compromise of the cervical spinal can al. Called by myself to ER provider 07/20/2023 at 7:14 p.m. RADIATION DOSE DELIVERED: Total DLP DATA REPOSITORY: All CT scans at this facility are submitted to the National Radiology Data Registry (NRDR) Dose Index Registry (DIR) with the [employer] (A[employer]). RADIATION OPTIMIZATION: All CT scans at this facility use at least one of these dose optimization te chniques: automated exposure control; mA and/or kV adjustment per patient size (includes targeted exa ms where dose is matched to clinical indication); or iterative reconstruction.
--- NOTE | 2023-07-20 18:00 | DI.RAD_ITS ---
Exam(s) XR PORTABLE CHEST AP EXAM: XR PORTABLE CHEST AP CLINICAL HISTORY: Fall. TECHNIQUE: 2D digital imaging was performed. COMPARISON: CR,XR XR CHEST 2V PA LATERAL from 05/24/2023 FINDINGS: Single AP portable view. Heart size is upper normal. The mediastinum is not widened. Lungs are clear. No infiltrates nor obvious pleural effusions. IMPRESSION: No acute pulmonary findings on this single AP portable view of the chest. DATA REPOSITORY: RADIATION DOSE DELIVERED:
[2023-07-20 18:14] LABS: Abs Immature Grans 0.01 10^3/uL (0.0-0.06); Absolute Basophil Count 0.05 10^3/uL (0.0-0.2); Absolute Eosinophil Count 0.02 10^3/uL (0.0-0.7); Absolute Lymphocyte Count 3.08 10^3/uL (1.2-3.4); Absolute Monocyte Count 0.34 10^3/uL (0.1-0.8); Absolute Neutrophil Count 3.24 10^3/uL (1.2-6.7); Basophils % 0.7; Eosinophils % 0.3; HCT 43.6 % (36.0-46.0); HGB 14.6 g/dL (11.2-15.7); Immature Grans % 0.1; Lymphocytes % 45.7; MCHC 33.5 % (32.0-36.0); MCV 87 fL (80-95); MPV 9.7 fL (8.0-11.0); Neutrophils % 48.2; Platelet Count 230 10^3/uL (130-400); RBC 5.04 10^6/uL (3.93-5.22); RDW 13.9 % (11.7-14.6); WBC 6.74 10^3/uL (4.4-10.8)
[2023-07-20] MEDS: ACETAMINOPHEN 1,000 MG/100 ML BTL 400 MG IVPB (18:21)
[2023-07-20] MEDS: Normal Saline 1,000 ML 1000 ML IV (18:22)
[2023-07-20] MEDS: Ondansetron 4 MG/2 ML VIAL IVP (18:22)
[2023-07-20 18:24] LABS: Anion Gap 9.4 mmol/L (3-11); BUN 14 mg/dL (7-18); CO2 27.6 mmol/L (21.0-32.0); Calcium 9.1 mg/dL (8.5-10.1); Chloride 103 mmol/L (98-107); Estimated GFR 73.49 (mL/min/1.73m2); Glucose 91 mg/dL (74-106); Potassium 3.6 mmol/L (3.5-5.1); Sodium 140 mmol/L (136-145)
[2023-07-20 18:32] LABS: HCG Qual (Serum) Negative
[2023-07-20 18:38] LABS: Troponin I < 50 ng/L (<or=60)
[2023-07-20] MEDS: Ketorolac 15 MG/ML VIAL IVP (19:29)
[2023-07-20 21:20] LABS: Troponin I < 50 ng/L (<or=60)
== END 2023-07-20 21:29 | disposition home or self-care (01) ==
PROVIDERS: Emergency Provider Emergency Medicine; PCP Physician Assistant Medical
DX: R55 Syncope and collapse (principal); R51.9 Headache, unspecified; F17.210 Nicotine dependence, cigarettes, uncomplicated
CPT/HCPCS: 80048; 93005; 96361; 96374; 96375; 99284; 70450; 71045; 72125; 84484; 84703; 85025; 93010; J0131; J1885; J2405

== ENCOUNTER 2023-08-24 16:12 | Emergency (ER) | payer MEDICAID, SELFPAY ==
--- NOTE | 2023-08-24 16:14 | ED.GENADUL_ITS ---
HPI General Date/Time Provider Initiated Documentation: 08/24/23 16:14 . HPI Narrative: MDM This is an overall very well-appearing normothermic and initially tachycardic 38-year-old female with bilateral eye redness and discharge most consistent with conjunctivitis for which patient will receive erythromycin ointment as she does not wear contact lenses. 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 No trauma to the eye so doubt globe rupture. Given bilateral symptoms that began with itching sensation and given no foreign bodies will defer fluorescein and slit-lamp examination. No signs of zoster to suggest benefit from fluorescein stain. Doubt corneal abrasion given no trauma. Given no trauma I did not feel that I had to assess for hyphema. No pain or proportion to suggest necrotizing soft tissue infection. No recent surgeries to suggest endophthalmitis. Furthermore no significant headache. Patient and I discussed return to the emergency department for fevers, worsening pain or any respiratory symptoms. Chronic conditions affecting the care of the patient: N/A History obtained from an outside historian: N/A External record review: N/A Medications: Erythromycin ointment Social determinants of health affecting disposition: N/A Management discussed with: N/A Treatment/interventions considered: N/A Response to therapies provided: N/A HPI This is a 38-year-old female who does not wear contact lenses arriving to the emergency department via private vehicle in the setting of itching and redness to her eyes bilaterally which began yesterday afternoon. 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 She initially had symptoms in her left eye which she felt was itching and tearing more than usual. She subsequently developed a burning and just straining sensation. She does not wear contact lenses. She has had no fevers nor cough. She does have some postnasal drip. Exam General: Well-appearing in no acute distress speaking in complete sentences. Head: Normocephalic, atraumatic. Eye: Extraocular eye movements intact. Mild bilateral conjunctival injection. No scleral icterus. No afferent pupillary defect. No significant purulent discharge from eyes. No significant proptosis. Lids and lashes normal on external inspection. Visual acuity as reported by emergency department sound engineering technician [place] Left eye 20/70 Right eye 20/70 Bilaterally 20/50 Visual acuity obtained without glasses which patient typically wears but did not bring to the emergency department. Ear, nose, mouth, throat: Grossly normal inspection. Normal voice, handling secretions normally. Neck: Trachea midline. Cardiovascular: Well-perfused distal extremities. Respiratory: Nonlabored respiration. Gastrointestinal: Nondistended abdomen. Musculoskeletal: No edema. Moving all 4 extremities spontaneously. Skin: Normal for age and race, grossly normal temperature and turgor. No acute rash. Neurologic: Alert and appropriate, no apparent acute deficits. Psychiatric: Mood and manner are appropriate. Grooming and personal hygiene are appropriate. Related Data Home Medications Medication Instructions Recorded Confirmed ropinirole 1 mg tablet 2 mg PO HS 06/08/15 08/24/23 venlafaxine 150 mg 300 mg PO DAILY 12/17/16 08/24/23 capsule,extended release 24 hr acetaminophen 325 mg tablet 650 mg PO PRN PRN 04/16/17 08/24/23 (Tylenol) omeprazole 40 mg capsule,delayed 40 cap PO HS 12/29/21 08/24/23 release diclofenac sodium 50 mg 50 mg PO Q12H PRN #14 tabs 01/25/22 08/24/23 tablet,delayed release bupropion HCl 100 mg tablet,12 hr 100 mg PO DAILY 03/18/23 08/24/23 sustained-release (Wellbutrin SR) hydroxyzine HCl 25 mg tablet 25 mg PO QHS 03/18/23 08/24/23 Previous Rx's Medication Instructions Recorded diclofenac sodium 50 mg 50 mg PO Q12H PRN #14 tabs 01/25/22 tablet,delayed release Allergies Allergy/AdvReac Type Severity Reaction Status Date / Time Penicillins Allergy Severe Swelling Verified 08/24/23 16:19 in throat granda flavor Allergy Intermediate throat Verified 08/24/23 16:19 bleeds,swelling kiwi Allergy Intermediate throat Verified 08/24/23 16:19 swells latex Allergy Mild rash,swelli Verified 08/24/23 16:19 ng aspirin AdvReac Intermediate stomach Verified 08/24/23 16:19 pain naproxen AdvReac Intermediate Nausea Verified 08/24/23 16:19 sumatriptan [From Imitrex] AdvReac Mild Makes Verified 08/24/23 16:19 headache worse wool Allergy Mild Skin Rash Uncoded 08/24/23 16:19 General IVAN: 3 Medical Decision Making Quality:SDOH Health Related Social Needs: No Data to Display PFSH All Active Problems (Updated 08/24/23 @ 16:34 by Taran Saab MD) Acute conjunctivitis, bilateral (Acute) Pelvic deform NOS-unspec (Acute) abnormally hardened pelvic vessels Mucocele of lip (Acute) Chronic pelvic pain in female (Acute) Colitis (Acute) Nausea vomiting and diarrhea (Acute) Cephalgia (Acute) Medical History Fatty liver Chest pain of uncertain etiology Oral mucosal lesion Hoarseness Irritable bowel syndrome (IBS) History of tobacco abuse Depression Bipolar disorder Obesity Ventral hernia History of cannabis abuse Dizzy spells Cholecystitis GERD (gastroesophageal reflux disease) Restless leg syndrome Anxiety Migraine Surgical History History of left oophorectomy 07/10/22, left oophorectomy for pelvic pain. Abnormal hardened pelvic vessels noted. Status post appendectomy December 2021 - normal pathology H/O: hysterectomy S/P laparoscopic cholecystectomy (~11/25/20) History of umbilical hernia repair (~09/13/19) R wrist cyst removal 10/2002 Oophrectomy, Right (06/09/15) Laparoscopic RSO with L salpingectomy for R sided pelvic pain. R corpus luteum cyst. no pathology. Hysterectomy, Laproscopic (~11/2009) LAVH, ovarian conservation for dysmenorrhea EGD - MAC (12/16/16) Diagnostic Laproscopy [facility] bilateral ovarian cystectomies 11/2009. Diagnostic laparoscopy for chronic RLQ pain after LAVH in 2009. Tooth extraction 07/2014 wisdom teeth extraction Social History Smoking/Tobacco Use Status: Current every day Tobacco Type: cigarettes Tobacco: How many years used: 13 Quit status: not considering quitting Smoking risk assessment performed?: Yes Alcohol Intake: current Alcohol Intake frequency: holidays/special occasions only Alcohol type: beer, wine and hard liquor Drug use: Occasionally Substance use type: marijuana Housing: other Current gender identity: female Do you feel safe at home: Yes Do you feel safe in your relationship?: Yes Female Reproductive History Menstrual control method: permanent sterilization History History 2 Para 2 Hx # Term Pregnancies Multiple births Hx # Pregnancies Ectopic pregnancies AB induced Hx Number of Living Children AB spontaneous Past Pregnancies Del. Date GA/Weeks # Preg Succ Route Wgt Sex Labor Lgth Anesth esia Location Prov Complic 06/01/02 40 No Yes vaginal 3486.991 g Female [place] 09/13/07 40 No Yes vaginal 4082.331 g Male [place] Discharge Plan Disposition Patient Disposition: Home Discharge Details Clinical Impression: Acute conjunctivitis, bilateral Primary Care Provider: German Campa ED Provider: Taran Saab [place] Meds and New Rx's Prescriptions: Continued hydroxyzine HCl 25 mg tablet 25 mg PO QHS bupropion HCl [Wellbutrin SR] 100 mg tablet sustained-release 12 hr 100 mg PO DAILY Hold Instructions: Pt Stopped/Never Started ropinirole 1 MG tablet 2 mg PO HS omeprazole 40 mg capsule,delayed release(DR/EC) 40 cap PO HS Patient Comments: TAKE 1 CAPSULE BY MOUTH ONCE A DAY diclofenac sodium 50 mg tablet,delayed release (DR/EC) 50 mg PO Q12H PRNQty: 14 0RF venlafaxine 150 MG capsule,extended release 24hr 300 mg PO DAILY acetaminophen [Tylenol] 325 MG tablet 650 mg PO PRN PRN Discharge Instructions Instructions: Conjunctivitis (ED) Additional Instructions: You are seen in the emergency department for your eye discomfort. You have an infection in your eye for which you are receiving an antibiotic ointment that you should use every 6 hours for the next 7 days. As we discussed, if your symp toms worsen or do not improve please return to the emergency department. Similarly please return to the emergency department if you develop fevers or difficulty breathing. You may return to work if you are feeling improved tomorrow. Please ensure you wash your hands frequently while at work. Please stay home from work if you are having difficulty seeing or any increase in your eye drainage. Stand Alone Forms: Work Release Discharge Data Discharge Date/Time-TO BE ENTERED AT DEPARTURE: 08/24/23 16:51
[2023-08-24 16:15] VITALS: BP 123/91; PULSE 104; RESP 16; TEMP 37.1; O2SAT 97
[2023-08-24 16:36] VITALS: PULSE 85
[2023-08-24 16:43] VITALS: RESP 16
[2023-08-24] MEDS: Erythromycin Ophth Oint 3.5 GM TUBE OD (16:49)
== END 2023-08-24 16:51 | disposition home or self-care (01) ==
PROVIDERS: Emergency Provider Emergency Medicine; PCP Physician Assistant Medical
DX: H10.33 Unspecified acute conjunctivitis, bilateral (principal); F17.210 Nicotine dependence, cigarettes, uncomplicated
CPT/HCPCS: 99282

== ENCOUNTER 2023-08-27 11:26 | Outpatient (REF) | payer MEDICAID, SELFPAY | END 2023-08-27 11:27 | disposition home or self-care (01) | LOC: LBN 11:26 | PROVIDERS: PCP Physician Assistant Medical; Visit Provider Physician Assistant | DX: J02.9 Acute pharyngitis, unspecified (principal) | CPT/HCPCS: 87070 ==

== ENCOUNTER 2023-10-24 07:41 | Emergency (ER) | payer MEDICAID, SELFPAY ==
[2023-10-24 07:42] VITALS: BP 143/104; PULSE 89; RESP 17; TEMP 36.5; O2SAT 99
[2023-10-24 07:46] VITALS: BP 143/104; PULSE 89; RESP 17; TEMP 36.5; O2SAT 99
--- NOTE | 2023-10-24 07:56 | ED.GENADUL_ITS ---
Discharge Plan Disposition Patient Disposition: Home Condition: Stable Discharge Details Clinical Impression: Vomiting, Abdominal pain, chronic, generalized Primary Care Provider: [facility] ED Provider: Olesya Feldman Home Meds and New Rx's Prescriptions: New ondansetron 4 mg tablet,disintegrating 4 mg PO Q6H PRN (Reason: nausea and vomiting) Qty: 30 0RF No Action hydroxyzine HCl 25 mg tablet 25 mg PO QHS bupropion HCl [Wellbutrin SR] 100 mg tablet sustained-release 12 hr 100 mg PO DAILY Hold Instructions: Pt Stopped/Never Started ropinirole 1 MG tablet 2 mg PO HS omeprazole 40 mg capsule,delayed release(DR/EC) 40 cap PO HS Patient Comments: TAKE 1 CAPSULE BY MOUTH ONCE A DAY diclofenac sodium 50 mg tablet,delayed release (DR/EC) 50 mg PO Q12H PRNQty: 14 0RF venlafaxine 150 MG capsule,extended release 24hr 300 mg PO DAILY acetaminophen [Tylenol] 325 MG tablet 650 mg PO PRN PRN Discharge Instructions Instructions: Abdominal Pain (ED) Additional Instructions: please follow up with your specialist at [facility] take zofran as needed for nausea advance diet slowly HPI General Date/Time Provider Initiated Documentation: 10/24/23 07:45 . Limitations to Documentation: no limitations . Information obtained by: patient . HPI Narrative: 38-year-old female with chronic abdominal pain presents for evaluation of worsened abdominal pain. Reports that symptoms have been ongoing for over a year. The severity waxes and wanes. She reports that she has been having severe pain for the last several days. Is been associated with nausea. She reports multiple episodes of vomiting. She states that she vomits because the pain is so bad. She reports multiple episodes of vomiting. She states that today she noted some blood appearing specks in it. No large volume of redness. She takes Tylenol at home without significant relief. Pain is generalized, worse with eating. Associated with decreased bowel movements. Related Data Home Medications Medication Instructions Recorded Confirmed ropinirole 1 mg tablet 2 mg PO HS 06/08/15 10/24/23 venlafaxine 150 mg 300 mg PO DAILY 12/17/16 10/24/23 capsule,extended release 24 hr acetaminophen 325 mg tablet 650 mg PO PRN PRN 04/16/17 10/24/23 (Tylenol) omeprazole 40 mg capsule,delayed 40 cap PO HS 12/29/21 10/24/23 release diclofenac sodium 50 mg 50 mg PO Q12H PRN #14 tabs 01/25/22 10/24/23 tablet,delayed release bupropion HCl 100 mg tablet,12 hr 100 mg PO DAILY 03/18/23 10/24/23 sustained-release (Wellbutrin SR) hydroxyzine HCl 25 mg tablet 25 mg PO QHS 03/18/23 10/24/23 ondansetron 4 mg disintegrating 4 mg PO Q6H PRN nausea and 10/24/23 tablet vomiting #30 tabs Previous Rx's Medication Instructions Recorded diclofenac sodium 50 mg 50 mg PO Q12H PRN #14 tabs 01/25/22 tablet,delayed release ondansetron 4 mg disintegrating 4 mg PO Q6H PRN nausea and 10/24/23 tablet vomiting #30 tabs Allergies Allergy/AdvReac Type Severity Reaction Status Date / Time Penicillins Allergy Severe Swelling Verified 10/24/23 07:47 in throat granda flavor Allergy Intermediate throat Verified 10/24/23 07:47 bleeds,swelling kiwi Allergy Intermediate throat Verified 10/24/23 07:47 swells latex Allergy Mild rash,swelli Verified 10/24/23 07:47 ng aspirin AdvReac Intermediate stomach Verified 10/24/23 07:47 pain naproxen AdvReac Intermediate Nausea Verified 10/24/23 07:47 sumatriptan [From Imitrex] AdvReac Mild Makes Verified 10/24/23 07:47 headache worse wool Allergy Mild Skin Rash Uncoded 10/24/23 07:47 General Stated Complaint: Abd Prob IVAN: 3 Exam Narrative Exam Narrative: Review of Systems: All systems reviewed & are unremarkable except as noted in HP I and below Well-developed, appears uncomfortable NCAT PERRL, normal conjunctiva Moist mucous membranes RRR, no murmur Unlabored respiratory effort, CTAB Nondistended abdomen , soft, generalized Extremities w/o deformity, no cyanosis, no edema No rashes or lesions. no focal neurologic deficits Appropriate mood and affect Course Vital Signs Vital signs: Vital Signs Temperature 36.5 C 10/24/23 07:42 Pulse 89 10/24/23 07:42 Respiratory Rate 17 10/24/23 07:42 Blood Pressure 143/104 H 10/24/23 07:42 Pulse Oximetry 99 10/24/23 07:42 Temperature 36.5 C 10/24/23 07:46 Pulse 89 10/24/23 07:46 Respiratory Rate 17 10/24/23 07:46 Respiratory Effort Normal 10/24/23 07:45 Blood Pressure 143/104 H 10/24/23 07:46 Blood Pressure Position Sitting 10/24/23 07:46 Pulse Oximetry 99 10/24/23 07:46 Oxygen Delivery Method Room Air 10/24/23 07:46 Oxygen Flow Rate 0 10/24/23 07:46 Pain Level 10 10/24/23 07:46 Medical Decision Making Emergent evaluation of acute on chronic abdominal pain associated with vomiting. Patient has generalized tenderness, but not a focal abdominal exam. Vital signs are stable. She has had multiple abdominal surgeries including hernia, all pelvic organs removed, gallbladder and appendix out. She has been evaluated multiple times for this same complaint and seeing specialist. Will evaluate today for electrolyte derangement, significant dehydration or infectious etiology. Will give medications and fluid resuscitation. Given her description of the blood specks in her vomit, I doubt that she is having any significant GI bleeding. 0930 Lab work reviewed. Mild leukopenia noted. Perhaps viral suppression. Would need reassessment by PCP. No anemia. Doubt significant GI bleeding based on this. Creatinine baseline. LFTs baseline. Lipase not elevated. After medications given in the emergency department, the patient reports resolution of her symptoms. Recommend follow-up with specialist care for her ongoing abdominal pain. Patient is discharged in good condition with a prescription for Zofran. Medical Records Medical records reviewed: Yes I reviewed the patient's medical records. Lab Data Lab results reviewed: Yes I reviewed the patient's lab results. Quality:[facility] Health Related Social Needs: No Data to Display PFSH All Active Problems (Updated 10/24/23 @ 09:24 by Olesya Feldman MD) Abdominal pain, chronic, generalized (Acute) Vomiting (Acute) Pelvic deform NOS-unspec (Acute) abnormally hardened pelvic vessels Mucocele of lip (Acute) Chronic pelvic pain in female (Acute) Colitis (Acute) Nausea vomiting and diarrhea (Acute) Cephalgia (Acute) Medical History Fatty liver Chest pain of uncertain etiology Oral mucosal lesion Hoarseness Irritable bowel syndrome (IBS) History of tobacco abuse Depression Bipolar disorder Obesity Ventral hernia History of cannabis abuse Dizzy spells Cholecystitis GERD (gastroesophageal reflux disease) Restless leg syndrome Anxiety Migraine Surgical History History of left oophorectomy 07/10/22, left oophorectomy for pelvic pain. Abnormal hardened pelvic vessels noted. Status post appendectomy December 2021 - normal pathology H/O: hysterectomy S/P laparoscopic cholecystectomy (~11/25/20) History of umbilical hernia repair (~09/13/19) R wrist cyst removal 10/2002 Oophrectomy, Right (06/09/15) Laparoscopic RSO with L salpingectomy for R sided pelvic pain. R corpus luteum cyst. no pathology. Hysterectomy, Laproscopic (~11/2009) LAVH, ovarian conservation for dysmenorrhea EGD - [facility] (12/16/16) Diagnostic Laproscopy [facility] bilateral ovarian cystectomies 11/2009. Diagnostic laparoscopy for chronic RLQ pain after LAVH in 2009. Tooth extraction 07/2014 wisdom teeth extraction Social History Smoking/Tobacco Use Status: Current every day Tobacco Type: cigarettes Tobacco: How many years used: 13 Quit status: not considering quitting Smoking risk assessment performed?: Yes Alcohol Intake: current Alcohol Intake frequency: holidays/special occasions only Alcohol type: beer, wine and hard liquor Drug use: Occasionally Substance use type: marijuana Housing: other Current gender identity: female Do you feel safe at home: Yes Do you feel safe in your relationship?: Yes Female Reproductive History Menstrual control method: permanent sterilization History History 2 Para 2 Hx # Term Pregnancies Multiple births Hx # Pregnancies Ectopic pregnancies AB induced Hx Number of Living Children AB spontaneous Past Pregnancies Del. Date GA/Weeks # Preg Succ Route Wgt Sex Labor Lgth Anesth esia Location Prov Complic 06/01/02 40 No Yes vaginal 3486.991 g Female Fabiano ramirez [place] 09/13/07 40 No Yes vaginal 4082.331 g Male Malcom monsivais [place]
[2023-10-24 08:16] LABS: Abs Immature Grans 0.01 10^3/uL (0.0-0.06); Absolute Basophil Count 0.08 10^3/uL (0.0-0.2); Absolute Eosinophil Count 0.07 10^3/uL (0.0-0.7); Absolute Lymphocyte Count 1.24 10^3/uL (1.2-3.4); Absolute Monocyte Count 0.27 10^3/uL (0.1-0.8); Absolute Neutrophil Count 1.95 10^3/uL (1.2-6.7); Basophils % 2.2; Eosinophils % 1.9; HCT 43.3 % (36.0-46.0); HGB 14.5 g/dL (11.2-15.7); Immature Grans % 0.3; Lymphocytes % 34.3; MCH 29.8 pg (27.0-33.0); MCHC 33.5 % (32.0-36.0); MCV 89 fL (80-95); MPV 9.6 fL (8.0-11.0); Monocytes % 7.5; Neutrophils % 53.8; Platelet Count 228 10^3/uL (130-400); RBC 4.86 10^6/uL (3.93-5.22); RDW 12.8 % (11.7-14.6); RDW-SD 42.1 fL; WBC 3.62 10^3/uL (4.4-10.8)
[2023-10-24] MEDS: Droperidol 5 MG/2 ML VIAL 2.5 MG IVP (08:18)
[2023-10-24] MEDS: Normal Saline 1,000 ML 1000 ML IV (08:21)
[2023-10-24 08:44] LABS: ALT 85 U/L (14-59); AST 43 U/L (15-37); Albumin 3.5 g/dL (3.4-5.0); Alkaline Phosphatase 180 U/L (46-116); Anion Gap 9.2 mmol/L (3-11); BUN 15 mg/dL (7-18); Bilirubin, Total 0.3 mg/dL (0.2-1.0); CO2 25.8 mmol/L (21.0-32.0); CREATININE 1.1 mg/dL (0.55-1.02); Calcium 8.5 mg/dL (8.5-10.1); Chloride 106 mmol/L (98-107); Estimated GFR 65.55 (mL/min/1.73m2); Glucose 109 mg/dL (74-106); Lipase 56 U/L (16-77); Magnesium 2.3 mg/dL (1.8-2.4); Sodium 141 mmol/L (136-145); Total Protein 7.3 g/dL (6.4-8.2)
[2023-10-24] MEDS: Ketorolac 15 MG/ML VIAL 10 MG IVP (09:11)
[2023-10-24] MEDS: Famotidine 20 MG/2 ML VIAL IVP (09:11)
== END 2023-10-24 09:40 | disposition home or self-care (01) ==
PROVIDERS: Emergency Provider Emergency Medicine; PCP Physician Assistant Medical
DX: R10.84 Generalized abdominal pain (principal); R11.10 Vomiting, unspecified
CPT/HCPCS: 36415; 80053; 83690; 96361; 96374; 96375; 99284; 83735; 85025; J1790; J1885

== ENCOUNTER 2023-12-19 18:38 | Outpatient (REF) | payer MEDICAID, SELFPAY ==
[2023-12-19 19:06] LABS: HCT 42.9 % (36.0-46.0); HGB 14.2 g/dL (11.2-15.7); MCH 29.3 pg (27.0-33.0); MCHC 33.1 % (32.0-36.0); MCV 89 fL (80-95); MPV 10.4 fL (8.0-11.0); Platelet Count 275 10^3/uL (130-400); RBC 4.85 10^6/uL (3.93-5.22); RDW 12.9 % (11.7-14.6); RDW-SD 42.1 fL; WBC 4.87 10^3/uL (4.4-10.8)
[2023-12-19 19:31] LABS: ALT 69 U/L (14-59); AST 34 U/L (15-37); Albumin 3.9 g/dL (3.4-5.0); Alkaline Phosphatase 144 U/L (46-116); Anion Gap 5.2 mmol/L (3-11); BUN 19 mg/dL (7-18); Bilirubin, Total 0.4 mg/dL (0.2-1.0); CO2 25.8 mmol/L (21.0-32.0); CREATININE 1.2 mg/dL (0.55-1.02); Calcium 9.3 mg/dL (8.5-10.1); Calculated LDL 198 mg/dL (<100); Chloride 106 mmol/L (98-107); Cholesterol 271 mg/dL (<200); Estimated GFR 59.05 (mL/min/1.73m2); Ferritin 59 ng/mL (8-252); Glucose 87 mg/dL (74-106); HDL Cholesterol 52 mg/dL (40-60); Magnesium 2.1 mg/dL (1.8-2.4); Potassium 4.1 mmol/L (3.5-5.1); Sodium 137 mmol/L (136-145); TSH (W/Ref FT4) 1.16 uIU/mL (0.36-3.74); Total Protein 7.9 g/dL (6.4-8.2); Triglyceride 107 mg/dL (<150)
[2023-12-19 19:33] LABS: Hemoglobin A1C 5.5 % (<5.7)
== END 2023-12-19 18:39 | disposition home or self-care (01) ==
LOC: NCHCN 18:38
PROVIDERS: PCP Physician Assistant Medical; Visit Provider Physician Assistant Medical
DX: G25.81 Restless legs syndrome (principal); R79.89 Other specified abnormal findings of blood chemistry; F31.89 Other bipolar disorder; K76.89 Other specified diseases of liver; E66.8 Other obesity
CPT/HCPCS: 80053; 80061; 85027; 82728; 83036; 83735; 84443

== ENCOUNTER 2024-03-24 20:02 | Outpatient (REF) | payer MEDICAID, SELFPAY ==
[2024-03-24 20:20] LABS: ALT 80 U/L (14-59); AST 45 U/L (15-37); Albumin 3.8 g/dL (3.4-5.0); Alkaline Phosphatase 152 U/L (46-116); Anion Gap 9.4 mmol/L (3-11); BUN 15 mg/dL (7-18); Bilirubin, Total 0.29 mg/dL (0.2-1.0); CO2 25.6 mmol/L (21.0-32.0); CREATININE 1.2 mg/dL (0.55-1.02); Calculated LDL 96 mg/dL (<100); Chloride 106 mmol/L (98-107); Cholesterol 181 mg/dL (<200); Estimated GFR 58.69 (mL/min/1.73m2); Glucose 115 mg/dL (74-106); HDL Cholesterol 51 mg/dL (40-60); Potassium 3.8 mmol/L (3.5-5.1); Sodium 141 mmol/L (136-145); Total Protein 7.6 g/dL (6.4-8.2); Triglyceride 173 mg/dL (<150)
== END 2024-03-24 20:03 | disposition home or self-care (01) ==
LOC: NCHCN 20:02
PROVIDERS: PCP Physician Assistant Medical; Visit Provider Physician Assistant Medical
DX: E78.5 Hyperlipidemia, unspecified (principal)
CPT/HCPCS: 80053; 80061

== ENCOUNTER 2024-09-14 14:24 | Outpatient (REF) | payer MEDICAID, SELFPAY ==
[2024-09-14 16:22] LABS: Abs Immature Grans 0.01 10^3/uL (0.0-0.06); Absolute Basophil Count 0.06 10^3/uL (0.0-0.2); Absolute Eosinophil Count 0.08 10^3/uL (0.0-0.7); Absolute Lymphocyte Count 1.86 10^3/uL (1.2-3.4); Absolute Monocyte Count 0.35 10^3/uL (0.1-0.8); Absolute Neutrophil Count 2.72 10^3/uL (1.2-6.7); Basophils % 1.2 %; Eosinophils % 1.6 %; HCT 44.1 % (36.0-46.0); HGB 14.7 g/dL (11.2-15.7); Immature Grans % 0.2 %; Lymphocytes % 36.6 %; MCH 29.5 pg (27.0-33.0); MCHC 33.3 % (32.0-36.0); MCV 89 fL (80-95); Monocytes % 6.9 %; Neutrophils % 53.5 %; Platelet Count 268 10^3/uL (130-400); RBC 4.98 10^6/uL (3.93-5.22); RDW 12.8 % (11.7-14.6); RDW-SD 41.5 fL; WBC 5.08 10^3/uL (4.4-10.8)
[2024-09-14 16:55] LABS: ALT 42 U/L (14-59); AST 24 U/L (15-37); Albumin 3.8 g/dL (3.4-5.0); Alkaline Phosphatase 153 U/L (46-116); Anion Gap 11.3 mmol/L (3-11); BUN 14 mg/dL (7-18); Bilirubin, Total 0.25 mg/dL (0.2-1.0); CO2 24.7 mmol/L (21.0-32.0); CREATININE 1.4 mg/dL (0.55-1.02); Calcium 9.1 mg/dL (8.5-10.1); Chloride 107 mmol/L (98-107); Estimated GFR 48.78 (mL/min/1.73m2); Ferritin 60 ng/mL (8-252); Glucose 127 mg/dL (74-106); Potassium 3.9 mmol/L (3.5-5.1); Sodium 143 mmol/L (136-145); Total Protein 7.3 g/dL (6.4-8.2)
[2024-09-14 17:02] LABS: COMMENT (LAB VIEW ONLY) 304.31 mg/dL; Microalb ug/mg Crea 3.5 ug/mg Cr
[2024-09-14 17:20] LABS: Iron 57 ug/dL (50-170); Total Iron Binding Capacity 288 ug/dL (250-450); Transferrin Sat 20 % (15-50)
== END 2024-09-14 14:25 | disposition home or self-care (01) ==
LOC: NCHCN 14:24
PROVIDERS: PCP Physician Assistant Medical; Visit Provider Physician Assistant Medical
DX: R79.89 Other specified abnormal findings of blood chemistry (principal); G25.81 Restless legs syndrome; R74.01 Elevation of levels of liver transaminase levels
CPT/HCPCS: 80053; 82043; 82570; 82728; 83540; 83550; 85025

== ENCOUNTER 2024-10-23 12:16 | Emergency (ER) | payer MEDICAID, SELFPAY ==
[2024-10-23] VITALS (25 sets, daily range): BP systolic 118–147; BP diastolic 83–111; PULSE 62–87; RESP 20; TEMP 36.9; O2SAT 91–100
--- NOTE | 2024-10-23 12:30 | DI.CT_ITS ---
Exam(s) CT THORACIC LUMBAR SPINE WO EXAM: CT THORACIC LUMBAR SPINE WO CLINICAL HISTORY: fall, back pain. TECHNIQUE: Imaging Protocol: Axial computed tomography images with coronal and sagittal reformatted images were created and reviewed. CONTRAST MATERIAL: Intravenous: None COMPARISON: No exams were available for comparison FINDINGS: THORACIC SPINAL COLUMN: No evidence of fracture nor listhesis. No disc space narrowing. Facet joints unremarkable. No acut e compromise of the thoracic spinal canal. No scoliosis. Bone density age-appropriate. No osseous lesions evident. LUMBOSACRAL SPINAL COLUMN: No evidence of fracture, listhesis, nor pars interarticularis defects. Facet joints appear unremarka ble. No facet malalignment. All the disc spaces exhibit normal height. At the L4-5 level there is some annular bulging and a central subligamentous disc bulge which indents the anterior thecal sac. Central canal dimensions are lower normal at this level. No significant f acet arthropathy. At the L5-S1 level there is mild disc space narrowing. Mild annular bulging without a distinct focal disc herniation or central canal stenosis nor foraminal stenosis. Facet joints unremarkable. Visualized sacrum and sacroiliac joints appear intact. IMPRESSION: No evidence of fractures in the thoracic and lumbosacral spinal columns. At the L4-5 level there is central subligamentous disc bulging. No prominent disc herniation. Centr al canal dimensions are lower normal limits at this level. There is no evidence of facet arthropathy nor facet joint malalignment in the thoracic and lumbosacra l spinal columns. All CT reports called by myself to ER provider 10/23/2024 at 2:55 p.m. RADIATION DOSE DELIVERED: 2,867.88mGy.cm Total DLP DATA REPOSITORY: All CT scans at this facility are submitted to the National Radiology Data Registry (NRDR) Dose Index Registry (DIR) with the [employer] ([employer]). RADIATION OPTIMIZATION: All CT scans at this facility use at least one of these dose optimization te chniques: automated exposure control; mA and/or kV adjustment per patient size (includes targeted exa ms where dose is matched to clinical indication); or iterative reconstruction.
--- NOTE | 2024-10-23 12:30 | DI.CT_ITS ---
Exam(s) CT HEAD CERVICAL SPINE WO EXAM: CT HEAD CERVICAL SPINE WO CLINICAL HISTORY: fall, headstrike, vomiting, onset yesterday. TECHNIQUE: Imaging Protocol: Axial computed tomography images with coronal and sagittal reformatted images were created and reviewed COMPARISON: CT CT HEAD CERVICAL SPINE WO from 07/20/2023 FINDINGS: BRAIN: There are no skull fractures nor fluid in the visualized paranasal sinuses. Right-sided nasal ring o rnament incidentally noted. No evidence of nasal bone fracture. There is no evidence of intracranial hemorrhage, mass effect, or shift of midline structures. There are no extra-axial fluid collections. The ventricles are not enlarged or shifted and there is no blo od within the ventricular system nor within the basal cisterns. CERVICAL SPINE: There is no evidence of fracture nor listhesis. No significant prevertebral soft tissue swelling. In the right-side of the C2 vertebral body on the coronal images only there is thin line which is pro bably nutrient artery canal. There is no significant facet joint malalignment. No significant osseous lesions evident. IMPRESSION: No acute intracranial findings on this noninfused CT scan of the brain. No evidence of obvious cervical spine fracture, malalignment, nor acute compromise of the cervical sp inal canal. RADIATION DOSE DELIVERED: 1,373.83mGy.cm Total DLP DATA REPOSITORY: All CT scans at this facility are submitted to the National Radiology Data Registry (NRDR) Dose Index Registry (DIR) with the [employer] ([employer]). RADIATION OPTIMIZATION: All CT scans at this facility use at least one of these dose optimization te chniques: automated exposure control; mA and/or kV adjustment per patient size (includes targeted exa ms where dose is matched to clinical indication); or iterative reconstruction.
[2024-10-23] MEDS: ACETAMINOPHEN 1,000 MG/100 ML BAG 400 MG IVPB (13:00)
[2024-10-23 13:11] LABS: Abs Immature Grans 0.01 10^3/uL (0.0-0.06); Absolute Basophil Count 0.05 10^3/uL (0.0-0.2); Absolute Eosinophil Count 0.04 10^3/uL (0.0-0.7); Absolute Lymphocyte Count 1.67 10^3/uL (1.2-3.4); Absolute Monocyte Count 0.32 10^3/uL (0.1-0.8); Absolute Neutrophil Count 2.25 10^3/uL (1.2-6.7); Basophils % 1.2 %; Eosinophils % 0.9 %; HCT 40.4 % (36.0-46.0); Immature Grans % 0.2 %; Lymphocytes % 38.5 %; MCH 29.5 pg (27.0-33.0); MCHC 32.2 % (32.0-36.0); MCV 92 fL (80-95); MPV 10.2 fL (8.0-11.0); Monocytes % 7.4 %; Neutrophils % 51.8 %; Platelet Count 201 10^3/uL (130-400); RDW 13.5 % (11.7-14.6); RDW-SD 46.3 fL; WBC 4.34 10^3/uL (4.4-10.8)
[2024-10-23 13:30] LABS: ALT 55 U/L (14-59); AST 24 U/L (15-37); Albumin 3.6 g/dL (3.4-5.0); Alkaline Phosphatase 133 U/L (46-116); Anion Gap 9.8 mmol/L (3-11); BUN 14 mg/dL (7-18); Bilirubin, Total 0.3 mg/dL (0.2-1.0); CO2 28.2 mmol/L (21.0-32.0); CREATININE 1.2 mg/dL (0.55-1.02); Calcium 8.9 mg/dL (8.5-10.1); Chloride 107 mmol/L (98-107); Estimated GFR 58.69 (mL/min/1.73m2); Glucose 107 mg/dL (74-106); Sodium 145 mmol/L (136-145)
--- NOTE | 2024-10-23 13:50 | ED.GENADUL_ITS ---
Discharge Plan Disposition Patient Disposition: Home Condition: Stable Discharge Details Clinical Impression: Concussion syndrome, Back pain Primary Care Provider: German Campa ED Provider: Doni Bower Home Meds and New Rx's Prescriptions: New ketorolac 10 mg tablet 10 mg PO QID PRN5 Days Qty: 20 0RF Rx Instructions: maximum total duration of 5 days from all oral, intranasal, or parenteral formulations Continued bupropion HCl [Wellbutrin SR] 100 mg tablet sustained-release 12 hr 150 mg PO DAILY ropinirole 1 MG tablet 2 mg PO HS omeprazole 40 mg capsule,delayed release(DR/EC) 40 cap PO HS Patient Comments: TAKE 1 CAPSULE BY MOUTH ONCE A DAY rosuvastatin 5 mg tablet 5 mg PO DAILY Patient Comments: TAKE ONE TABLET BY MOUTH EVERY DAY trazodone 150 mg tablet 150 mg PO QHS lamotrigine [Lamictal] 150 mg tablet 150 mg PO QHS venlafaxine 150 MG capsule,extended release 24hr 225.7 mg PO DAILY Rx Instructions: Being weaned down acetaminophen [Tylenol] 325 MG tablet 650 mg PO PRN PRN Discharge Instructions Instructions: Ketorolac (Systemic), Cyclobenzaprine, Low Back Pain ED, Concussion, Adult ED, Upper Back Pain ED Additional Instructions: You were seen in the emergency department for your fall yesterday with head strike with some vomiting, you likely have a concussion syndrome, your CT of your head shows no acute abnormality, the CT of your entire spine shows no fracture. You likely have an element of muscle spasm causing your neck and back pain. Please take 1000 mg of Tylenol every 6 hours, take Toradol 4 times per day as well. Apply [id number] lidocaine patch to areas of pain for 12 hours each day, you may apply [id number] Voltaren gel to areas of pain, use the to go doses of cyclobenzaprine before bed to help with muscle relaxation. Please return for any urinary retention, bowel incontinence, numbness to the genitals, neurovascular compromise of upper and/or lower extremities Stand Alone Forms: Work Release Referrals: German Campa PA [Primary Care Provider] - Discharge Data Discharge Date/Time-TO BE ENTERED AT DEPARTURE: 10/23/24 15:36 HPI General Date/Time Provider Initiated Documentation: 10/23/24 12:32 . HPI Narrative: 39 year-old female presents to ED today by POV/ambulating with a chief complaint of fall on , with lower back pain shooting up to her head. Quality described as shooting pains, occasionally into head and down L leg, no radiation to nausea/vomiting, syncope, lethargy, visual changes, inabiity to ambulate, numbness, weakness, urinary retention, bowel incontinence, back pain with fever, dizziness. Severity is described as moderate to severe. Palliating factors include OTC analgesics without relief. Provoking factors include nothing specific. Patient not anticoagulated. Related Data Home Medications ?Medication ?Instructions ?Recorded ?Confirmed ropinirole 1 mg tablet 2 mg PO HS 06/08/15 10/23/24 venlafaxine 150 mg 225.7 mg PO DAILY 12/17/16 10/23/24 capsule,extended release 24 hr acetaminophen 325 mg tablet 650 mg PO PRN PRN 04/16/17 10/23/24 (Tylenol) omeprazole 40 mg capsule,delayed 40 cap PO HS 12/29/21 10/23/24 release bupropion HCl 100 mg tablet,12 hr 150 mg PO DAILY 03/18/23 10/23/24 sustained-release (Wellbutrin SR) ketorolac 10 mg tablet 10 mg PO QID PRN 5 days #20 tabs 10/23/24 lamotrigine 150 mg tablet 150 mg PO QHS 10/23/24 10/23/24 (Lamictal) rosuvastatin 5 mg tablet 5 mg PO DAILY 10/23/24 10/23/24 trazodone 150 mg tablet 150 mg PO QHS 10/23/24 10/23/24 Previous Rx's ?Medication ?Instructions ?Recorded ketorolac 10 mg tablet 10 mg PO QID PRN 5 days #20 tabs 10/23/24 Allergies Allergy/AdvReac Type Severity Reaction Status Date / Time Penicillins Allergy Severe Swelling Verified 10/23/24 12:24 in throat granda flavor Allergy Intermediate throat Verified 10/23/24 12:24 bleeds,swelling kiwi Allergy Intermediate throat Verified 10/23/24 12:24 swells latex Allergy Mild rash,swelli Verified 10/23/24 12:24 ng aspirin AdvReac Intermediate stomach Verified 10/23/24 12:24 pain naproxen AdvReac Intermediate Nausea Verified 10/23/24 12:24 sumatriptan (From Imitrex) AdvReac Mild Makes Verified 10/23/24 12:24 headache worse wool Allergy Mild Skin Rash Uncoded 10/23/24 12:24 General Stated Complaint: Fall/Non TraumaCriteria IVAN: 3 Review of Systems All systems reviewed & are unremarkable except as noted in HPI and below Exam Narrative Exam Narrative: GENERAL APPEARANCE: Well-nourished, non-toxic, awake and alert, atraumatic, no acute distress. SKIN: Warm, pink, dry, intact, without rashes/lesions/ulcerations. HEAD: Normocephalic, atraumatic, normal hair distribution for gender/age. EYES: Normal conjunctiva, no exudates on lids/lashes. ENT: Nares patent, no circumoral cyanosis, no facial swelling NECK: Supple, trachea midline, painless cervical ROM. LUNGS/CHEST: Lungs CTA bilaterally, non-labored respirations, normal A/P diameter, symmetrical expansion, no chest wall deformity HEART (CV/PV): Regular rate and rhythm without murmur, no peripheral edema, no JVD. ABDOMEN: Soft, non-distended, no guarding. MSK: Normal ROM, no swelling/deformity to bilateral UEs or LEs, moving all extremities without weakness, no cyanosis, spine midline with diffuse tenderness without crepitus/step-offs, normal curvature. NEURO: Mental Status AAOx4 - alert to person, place, time, events No facial droop, no forehead involvement. Motor: No focal weakness - strength 5/5 in bilateral UEs and LEs, proximal and distal, symmetric. Sensory: sensation intact to light touch globally. Gait normal: patient ambulated without ataxia into ED room. PSYCH: euthymic, cooperative, pleasant, appropriate speech Course Vital Signs Vital signs: Vital Signs Temperature 36.9 C 10/23/24 12:19 Pulse 87 10/23/24 12:19 Respiratory Rate 20 10/23/24 12:19 Blood Pressure 123/88 10/23/24 12:19 Pulse Oximetry 98 10/23/24 12:19 Temperature 36.9 C 10/23/24 12:19 Temperature Source Oral 10/23/24 12:19 Pulse 78 10/23/24 13:33 Respiratory Rate 20 10/23/24 12:19 Blood Pressure 147/107 H 10/23/24 13:32 Blood Pressure Mean 119 10/23/24 13:32 Blood Pressure Position Sitting 10/23/24 12:19 Pulse Oximetry 95 10/23/24 13:33 Oxygen Delivery Method Room Air 10/23/24 12:19 Oxygen Flow Rate 0 10/23/24 12:19 Pain Level 10 10/23/24 12:44 Lab/Test Results Lab/Test Results: Laboratory Tests Range/Units 10/23/24 12:57 WBC (4.4-10.8) 10^3/uL 4.34 L RBC (3.93-5.22) 10^6/uL 4.40 Hgb (11.2-15.7) g/dL 13.0 Hct (36.0-46.0) % 40.4 MCV (80-95) fL 92 MCH (27.0-33.0) pg 29.5 MCHC (32.0-36.0) % 32.2 RDW (11.7-14.6) % 13.5 Plt Count (130-400) 10^3/uL 201 MPV (8.0-11.0) fL 10.2 Immature Gran % % 0.2 Neutrophils % % 51.8 Lymphocytes % % 38.5 Monocytes % % 7.4 Eosinophils % % 0.9 Basophils % % 1.2 Nucleated RBC % (0.0-0.3) % 0.0 Absolute Neutrophils (1.2-6.7) 10^3/uL 2.25 Absolute Lymphocytes (1.2-3.4) 10^3/uL 1.67 Absolute Monocytes (0.1-0.8) 10^3/uL 0.32 Absolute Eosinophils (0.0-0.7) 10^3/uL 0.04 Absolute Basophils (0.0-0.2) 10^3/uL 0.05 Sodium (136-145) mmol/L 145 Potassium (3.5-5.1) mmol/L 4.0 Chloride (98-107) mmol/L 107 Carbon Dioxide (21.0-32.0) mmol/L 28.2 Anion Gap (3-11) mmol/L 9.8 BUN (7-18) mg/dL 14 Creatinine (0.55-1.02) mg/dL 1.2 H Est GFR (CKD-EPI 2020) (mL/min/1.73m2) 58.69 Glucose (74-106) mg/dL 107 H Calcium (8.5-10.1) mg/dL 8.9 Total Bilirubin (0.2-1.0) mg/dL 0.3 AST (15-37) U/L 24 ALT (14-59) U/L 55 Alkaline Phosphatase (46-116) U/L 133 H Total Protein (6.4-8.2) g/dL 7.0 Albumin (3.4-5.0) g/dL 3.6 Medical Decision Making This dictation utilizes [id number] dictation software and may contain unedited grammatical errors. 39 year-old female presents to ED today by POV/ambulating with a chief complaint of fall on , with lower back pain shooting up to her head. Quality described as shooting pains, occasionally into head and down L leg, no radiation to nausea/vomiting, syncope, lethargy, visual changes, inabiity to ambulate, numbness, weakness, urinary retention, bowel incontinence, back pain with fever, dizziness. Severity is described as moderate to severe. Palliating factors include OTC analgesics without relief. Provoking factors include nothing specific. Patients' medical history: Noncontributory. Family and social history: Noncontributory. Pertinent exam findings / vital signs include diffuse midline vertebral pain without crepitus or step-off, neurovascular intact in bilateral lower extremities, vision grossly intact, neuro intact. Differential / pathologies of concern include unlikely ICH, less likely vertebral fracture likely muscle spasm with lingering headache of concussion. Diagnostic studies of: -CT head, CT C-T-L-spine without contrast. -No acute intracranial pathology, no vertebral fractures - shows L4-5 disc bulge Interventions of: -1 g IV Tylenol, 2 mg morphine IVP X2, cyclobenzaprine to go. Rx for ketorlac. ED Course/Assessment/Plan: 39-year-old female had a fall days ago with head and diffuse spinal pain, has questionable disc bulge at L4-5 and area of pain, neurovascular intact in bilateral lower extremities, recommend Tylenol and NSAID therapy as well as cyclobenzaprine provided to go recommend follow-up with physical therapy, strict return criteria for any signs of neurovascular compromise, urinary retention, bowel incontinence, numbness to genitals, otherwise will likely resolve over time with conservative management. Findings not consistent with ICH, vertebral fracture, neurovascular compromise, cauda equina. Disposition of back pain, concussion syndrome. Patient verbalized understanding of the plan and return to ED criteria and engaged in shared decision making. Medical Records Medical records reviewed: Yes I reviewed the patient's medical records. Imaging Data Radiologic Study: Attestation: I personally reviewed and interpreted this imaging study as follows: Imaging: CT Scan Radiologist's impression: EXAM: CT HEAD CERVICAL SPINE WO CLINICAL HISTORY: fall, headstrike, vomiting, onset yesterday. TECHNIQUE: Imaging Protocol: Axial computed tomography images with coronal and sagittal reformatted images were created and reviewed COMPARISON: CT CT HEAD CERVICAL SPINE WO from 07/20/2023 FINDINGS: BRAIN: There are no skull fractures nor fluid in the visualized paranasal sinuses. Right-sided nasal ring ornament incidentally noted. No evidence of nasal bone fracture. There is no evidence of intracranial hemorrhage, mass effect, or shift of midline structures. There are no extra-axial fluid collections. The ventricles are not enlarged or shifted and there is no blood within the ventricular system nor within the basal cisterns. CERVICAL SPINE: There is no evidence of fracture nor listhesis. No significant prevertebral soft tissue swelling. In the right-side of the C2 vertebral body on the coronal images only there is thin line which is probably nutrient artery canal. There is no significant facet joint malalignment. No significant osseous lesions evident. IMPRESSION: No acute intracranial findings on this noninfused CT scan of the brain. No evidence of obvious cervical spine fracture, malalignment, nor acute compromise of the cervical spinal canal. Radiologic Study #2: Attestation: I personally reviewed and interpreted this imaging study as follows: Imaging: CT Scan Radiologist's impression: EXAM: CT THORACIC LUMBAR SPINE WO CLINICAL HISTORY: fall, back pain. TECHNIQUE: Imaging Protocol: Axial computed tomography images with coronal and sagittal reformatted images were created and reviewed. CONTRAST MATERIAL: Intravenous: None COMPARISON: No exams were available for comparison FINDINGS: THORACIC SPINAL COLUMN: No evidence of fracture nor listhesis. No disc space narrowing. Facet joints unremarkable. No acute compromise of the thoracic spinal canal. No scoliosis. Bone density age-appropriate. No osseous lesions evident. LUMBOSACRAL SPINAL COLUMN: No evidence of fracture, listhesis, nor pars interarticularis defects. Facet joints appear unremarkable. No facet malalignment. All the disc spaces exhibit normal height. At the L4-5 level there is some annular bulging and a central subligamentous disc bulge which indents the anterior thecal sac. Central canal dimensions are lower normal at this level. No significant facet arthropathy. At the L5-S1 level there is mild disc space narrowing. Mild annular bulging without a distinct focal disc herniation or central canal stenosis nor foraminal stenosis. Facet joints unremarkable. Visualized sacrum and sacroiliac joints appear intact. IMPRESSION: No evidence of fractures in the thoracic and lumbosacral spinal columns. At the L4-5 level there is central subligamentous disc bulging. No prominent disc herniation. Central canal dimensions are lower normal limits at this level. There is no evidence of facet arthropathy nor facet joint malalignment in the thoracic and lumbosacral spinal columns. All CT reports called by myself to ER provider 10/23/2024 at 2:55 p.m. Quality:SDOH Health Related Social Needs: Health related social needs housing instability, house d, with risk of homelessness (Z59.811), material hardship(utilities) (Z59.12), transportation insecurity (Z59.82) PFSH All Active Problems (Updated 10/23/24 @ 15:08 by RADHA Ma) Back pain (Acute) Concussion syndrome (Acute) Pelvic deform NOS-unspec (Acute) abnormally hardened pelvic vessels Mucocele of lip (Acute) Chronic pelvic pain in female (Acute) Colitis (Acute) Nausea vomiting and diarrhea (Acute) Cephalgia (Acute) Medical History Fatty liver Chest pain of uncertain etiology Oral mucosal lesion Hoarseness Irritable bowel syndrome (IBS) History of tobacco abuse Depression Bipolar disorder Obesity Ventral hernia History of cannabis abuse Dizzy spells Cholecystitis GERD (gastroesophageal reflux disease) Restless leg syndrome Anxiety Migraine Surgical History History of left oophorectomy 07/10/22, left oophorectomy for pelvic pain. Abnormal hardened pelvic vessels noted. Status post appendectomy December 2021 - normal pathology H/O: hysterectomy S/P laparoscopic cholecystectomy (~11/25/20) History of umbilical hernia repair (~09/13/19) R wrist cyst removal 10/2002 Oophrectomy, Right (06/09/15) Laparoscopic RSO with L salpingectomy for R sided pelvic pain. R corpus luteum cyst. no pathology. Hysterectomy, Laproscopic (~11/2009) LAVH, ovarian conservation for dysmenorrhea EGD - MAC (12/16/16) Diagnostic Laproscopy [facility] bilateral ovarian cystectomies 11/2009. Diagnostic laparoscopy for chronic RLQ pain after LAVH in 2009. Tooth extraction 07/2014 wisdom teeth extraction Social History Smoking/Tobacco Use Status: Current every day Tobacco Type: cigarettes Tobacco: How many years used: 13 Quit status: not considering quitting Smoking risk assessment performed?: Yes Alcohol Intake: current Alcohol Intake frequency: holidays/special occasions only Alcohol type: beer, wine and hard liquor Drug use: Occasionally Substance use type: marijuana Housing: other Current gender identity: female Do you feel safe at home: Yes Do you feel safe in your relationship?: Yes Female Reproductive History Menstrual control method: permanent sterilization History History 2 Para 2 Hx # Term Pregnancies Multiple births Hx # Pregnancies Ectopic pregnancies AB induced Hx Number of Living Children AB spontaneous Past Pregnancies Del. Date GA/Weeks # Preg Succ Route Wgt Sex Labor Lgth Anesth esia Location [facility] 06/01/02 39 No Yes vaginal 3486.991 g Female Fabiano ramirez [place] 09/13/07 39 No Yes vaginal 4082.331 g Male Malocm monsivais [place]
[2024-10-23] MEDS: MORPHine 10 MG/ML VIAL 2 MG IVP ×2 (14:03→14:42)
--- NOTE | 2024-10-23 14:48 | DI.VRAD_ITS ---
PROCEDURE INFORMATION: Exam: CT Head Without Contrast Exam date and time: 10/23/2024 1:11 PM Age: 39 years old Clinical indication: Other: Fall, headstrike, vomitting, onset yesterday TECHNIQUE: Imaging protocol: Computed tomography of the head without contrast. Radiation optimization: All CT scans at this facility use at least one of these dose optimization techniques: automated exposure control; mA and/or kV adjustment per patient size (includes targeted exams where dose is matched to clinical indication); or iterative reconstruction. COMPARISON: CT HEAD CERVICAL SPINE WO 07/20/2023 6:36 PM FINDINGS: Brain: There is no acute intracranial hemorrhage. No extra-axial fluid collection. No evidence of acute infarct. Ribeiro white differentiation is intact. There is no evidence of mass. There is no mass effect or midline shift. Cerebral ventricles: No ventriculomegaly. Paranasal sinuses: Tiny right maxillary sinus retention cyst or polyp. Mastoid air cells: No significant mastoid effusion. Teeth: Several small dental caries are noted. Bones: Unremarkable. No acute fracture. Soft tissues: Unremarkable as visualized. IMPRESSION: No evidence of acute intracranial abnormality. No acute hemorrhage. No evidence of acute infarct or mass. PROCEDURE INFORMATION: Exam: CT Cervical Spine Without Contrast Exam date and time: 10/23/2024 1:11 PM Age: 39 years old Clinical indication: Other: Fall, headstrike, vomitting, onset yesterday TECHNIQUE: Imaging protocol: Computed tomography of the cervical spine without contrast. Radiation optimization: All CT scans at this facility use at least one of these dose optimization techniques: automated exposure control; mA and/or kV adjustment per patient size (includes targeted exams where dose is matched to clinical indication); or iterative reconstruction. COMPARISON: CT HEAD CERVICAL SPINE WO 07/20/2023 6:36 PM FINDINGS: Bones: Loss of cervical lordosis may be positional or associated with muscular spasm. Vertebral body heights are maintained. There is no fracture or dislocation. Facet joints appear well aligned. Lungs: Lung apices are unremarkable for acute finding. Soft tissues: Prevertebral soft tissues appear normal. Soft tissues are unremarkable. IMPRESSION: Loss of cervical lordosis. No evidence of fracture or dislocation. Dictated and Authenticated by: Michelle Rubio MD. Orderin Sathish Marion MD
--- NOTE | 2024-10-23 15:18 | DI.VRAD_ITS ---
PROCEDURE INFORMATION: Exam: CT Thoracic Spine Without Contrast Exam date and time: 10/23/2024 1:24 PM Age: 39 years old Clinical indication: Other: Fall, back pain TECHNIQUE: Imaging protocol: Computed tomography of the thoracic spine without contrast. Radiation optimization: All CT scans at this facility use at least one of these dose optimization techniques: automated exposure control; mA and/or kV adjustment per patient size (includes targeted exams where dose is matched to clinical indication); or iterative reconstruction. COMPARISON: No relevant comparison study. FINDINGS: Bones/joints: The visualized lower cervical, thoracic, and upper lumbar vertebra are intact with no subluxation or disc space narrowing. The visualized ribs are intact. 8 degree dextroscoliosis of the thoracic spine. The spinal canal and neural foramina are patent. Soft tissues: There is infiltration of the soft tissues of the lower back at L1-L3. Lymph nodes: Calcified left hilar lymph nodes. Lungs: Mild reticular markings left lower lobe consistent with atelectasis. Heart: No atherosclerotic or cardiac calcifications. Thyroid: Vague hypodensities in the right and left thyroid gland. IMPRESSION: 1. No evidence for acute bony injury. 2. Mild scoliosis. 3. Infiltration of the soft tissues of the lower back L1- L3. 4. Hypodensities in the right and left thyroid gland warrants further evaluation on a nonemergent basis with dedicated thyroid ultrasound. 5. Left posterior atelectasis. 6. Additional findings as discussed above. PROCEDURE INFORMATION: Exam: CT Lumbar Spine Without Contrast Exam date and time: 10/23/2024 1:24 PM Age: 39 years old Clinical indication: Other: Fall, back pain TECHNIQUE: Imaging protocol: Computed tomography of the lumbar spine without contrast. Radiation optimization: All CT scans at this facility use at least one of these dose optimization techniques: automated exposure control; mA and/or kV adjustment per patient size (includes targeted exams where dose is matched to clinical indication); or iterative reconstruction. COMPARISON: No relevant comparison study. FINDINGS: Bones/joints: The lumbar vertebral bodies are intact with no subluxation or disc space narrowing. The spinal canal and neural foramina are patent. There is no evidence for disc bulge or herniation. There is no evidence for acute bony injury. Vasculature: Mild atherosclerotic disease. Soft tissues: There is infiltration of the soft tissues of the posterior back from L1 to L3 vertebral body. IMPRESSION: 1. Infiltration of the subcutaneous fat of the posterior back from L1-L3. 2. No acute bony injury. 3. Additional findings as discussed above. Dictated and Authenticated by: Celestina Hernandez MD. Orderin Sathish Marion MD
[2024-10-23] MEDS: Cyclobenzaprine 10 MG TAB, 3 TABS/BTL PO (15:33)
== END 2024-10-23 15:36 | disposition home or self-care (01) ==
PROVIDERS: Emergency Provider Physician Assistant; PCP Physician Assistant Medical
DX: F07.81 Postconcussional syndrome (principal); M54.50 Low back pain, unspecified; F17.210 Nicotine dependence, cigarettes, uncomplicated; W19.XXXA Unspecified fall, initial encounter; R51.9 Headache, unspecified
CPT/HCPCS: 80053; 96365; 96375; 96376; 99284; 70450; 72125; 72128; 72131; 85025; J0131; J2270

== ENCOUNTER 2024-11-09 20:26 | Emergency (ER) | payer MEDICAID, SELFPAY ==
[2024-11-09] VITALS (12 sets, daily range): BP systolic 141; BP diastolic 89; PULSE 68–80; RESP 12–22; TEMP 36.9; O2SAT 90–99
[2024-11-09] MEDS: Normal Saline 1,000 ML 1000 ML IV (20:30)
--- NOTE | 2024-11-09 20:30 | DI.CT_ITS ---
Exam(s) CT ABDOMEN PELVIS W EXAM: CT ABDOMEN PELVIS W CLINICAL HISTORY: left lower abdomen and back pain. TECHNIQUE: Imaging Protocol: Axial computed tomography images with coronal and sagittal reformatted images were created and reviewed CONTRAST MATERIAL: Intravenous: Omnipaque-350 70cc Oral: None COMPARISON: CT CT ABDOMEN PELVIS W from 07/14/[address] LUMBAR SPINE RECONS from 11/09/2024 FINDINGS: VISUALIZED LUNG BASES: No nodules nor pleural effusions evident. ABDOMEN: There is no ascites. LIVER: Stable appearance of a 3 cm cyst in the right hepatic lobe again evident. There are no new fo karen hepatic lesions evident. No dilated intrahepatic ducts. GALLBLADDER/BILIARY: Gallbladder is again noted be surgically absent. CBD is not dilated. PANCREAS: No evidence of pancreatic mass nor dilatation of the pancreatic duct. SPLEEN: Spleen is not enlarged. No obvious intrasplenic lesions. Splenic and portal veins are paten t. ADRENALS: There are no significant adrenal masses. KIDNEYS:No cysts evident. No solid renal masses. No calculi nor hydronephrosis.. ABDOMINAL AORTA: Abdominal aorta is not enlarged. LYMPH NODES:There is no retroperitoneal nor paraaortic adenopathy. ABDOMINAL WALL: No evidence of significant anterior abdominal wall nor inguinal hernia. GI: There is no evidence of bowel obstruction, free air, nor abscess. PELVIS: GI: The appendix is surgically absent.No evidence of sigmoid diverticulitis. LYMPH NODES: There is no intrapelvic nor inguinal adenopathy. REPRODUCTIVE: Uterus is surgically absent. There are no abnormal adnexal masses and no free fluid in the pelvis. URINARY BLADDER: No calculi nor obvious masses evident OSSEOUS: No fractures and no significant osseous lesions. IMPRESSION: 1. No evidence of acute findings in the abdomen and pelvis. 2. There is evidence of previous cholecystectomy, appendectomy, and hysterectomy. No evidence of bow el obstruction, free air, nor abscess. 3. Stable benign 3 cm cyst in the liver. RADIATION DOSE DELIVERED: 1,009.86mGy.cm Total DLP DATA REPOSITORY: All CT scans at this facility are submitted to the National Radiology Data Registry (NRDR) Dose Index Registry (DIR) with the [employer] ([employer]). RADIATION OPTIMIZATION: All CT scans at this facility use at least one of these dose optimization te chniques: automated exposure control; mA and/or kV adjustment per patient size (includes targeted exa ms where dose is matched to clinical indication); or iterative reconstruction.
--- NOTE | 2024-11-09 20:30 | DI.CT_ITS ---
Exam(s) CT LUMBAR SPINE RECONS EXAM: CT LUMBAR SPINE RECONS CLINICAL HISTORY: lumbar back pain. TECHNIQUE: Imaging Protocol: Axial computed tomography images with coronal and sagittal reformatted images were created and reviewed COMPARISON: CT CT THORACIC LUMBAR SPINE WO from 10/23/2024 FINDINGS: Bones: There are no fractures, listhesis, nor pars defects. There are no lytic osseous lesions evide nt. INDIVIDUAL LEVELS: T12-L1:No disc herniation nor canal stenosis. Facet joints unremarkable. No foraminal stenosis. L1-2: No disc herniation nor canal stenosis. Facet joints unremarkable. No foraminal stenosis. L2-3: No disc herniation nor canal stenosis. Facet joints unremarkable. No Foraminal stenosis L3-4: No disc herniation nor canal stenosis. Facet joints unremarkable. No foraminal stenosis. L4-5: No disc herniation nor canal stenosis. L5-S1: There is moderate disc space narrowing. There is a central subligamentous disc protrusion wh ich effaces the thecal sac. Central canal dimensions are lower normal. There are mild degenerative changes in the facet joints. No obvious foraminal stenosis The visualized sacroiliac joints and sacrum appear unremarkable. PARASPINAL SOFT TISSUES: Visualized paraspinal tissues appear unremarkable. IMPRESSION: 1. Moderate disc space narrowing at L5-S1 level with central subligamentous small disc protrusion at this level. No prominent central canal stenosis nor foraminal stenosis at this level. 2. Other levels appear unremarkable. RADIATION DOSE DELIVERED: 1,009.86mGy.cm Total DLP DATA REPOSITORY: All CT scans at this facility are submitted to the National Radiology Data Registry (NRDR) Dose Index Registry (DIR) with the [employer] ([employer]). RADIATION OPTIMIZATION: All CT scans at this facility use at least one of these dose optimization te chniques: automated exposure control; mA and/or kV adjustment per patient size (includes targeted exa ms where dose is matched to clinical indication); or iterative reconstruction.
--- NOTE | 2024-11-09 20:46 | ED.GENADUL_ITS ---
Discharge Plan Disposition Patient Disposition: Home Condition: Stable Discharge Details Clinical Impression: Lumbar back pain, Abdominal pain Primary Care Provider: German Campa ED Provider: Xavi Perez Home Meds and New Rx's Prescriptions: New cyclobenzaprine 10 mg tablet 10 mg PO TID PRNQty: 20 0RF prednisone 20 mg tablet 60 mg PO DAILY 4 Days Qty: 12 0RF lidocaine 5 % adhesive patch,medicated 1 patch topical DAILY Qty: 30 0RF Rx Instructions: leave on most painful area for up to 12 hrs ondansetron 4 mg tablet,disintegrating 4 mg PO Q8H PRN (Reason: nausea and vomiting) Qty: 20 0RF Continued bupropion HCl [Wellbutrin SR] 100 mg tablet sustained-release 12 hr 150 mg PO DAILY ropinirole 1 MG tablet 2 mg PO HS omeprazole 40 mg capsule,delayed release(DR/EC) 40 cap PO HS Patient Comments: TAKE 1 CAPSULE BY MOUTH ONCE A DAY rosuvastatin 5 mg tablet 5 mg PO DAILY Patient Comments: TAKE ONE TABLET BY MOUTH EVERY DAY trazodone 150 mg tablet 150 mg PO QHS lamotrigine [Lamictal] 150 mg tablet 150 mg PO QHS venlafaxine 150 MG capsule,extended release 24hr 225.7 mg PO DAILY Rx Instructions: Being weaned down acetaminophen [Tylenol] 325 MG tablet 650 mg PO PRN PRN Discharge Instructions Additional Instructions: Your labs and imaging were unremarkable. You can take 1000 mg of acetaminophen every 6 hours as needed. The lidocaine patches are also [id number] if you find the prescription is significantly expensive. Follow-up with your primary care provider as scheduled. If you feel more ill or have significant worsening symptoms return to the emergency department for reevaluation. HPI General Mode of arrival: ambulatory . Date/Time Provider Initiated Documentation: 11/09/24 20:27 . Limitations to Documentation: no limitations . Information obtained by: patient . History of Present Illness 39 year old F presents to the emergency department with the chief complaint of lower abdomen and back pain, described as severe, with intensity rated at 10. Quality is described as constant, and is localized to the back and abdomen. Patient started experiencing this day(s) (2) and it has been constant. No relieving factors improve symptom(s), No exacerbating factors reported . Patient notes no other symptoms.. Patient did receive the following treatments prior to arrival, none Related Data Home Medications ?Medication ?Instructions ?Recorded ?Confirmed ropinirole 1 mg tablet 2 mg PO HS 06/08/15 11/09/24 venlafaxine 150 mg 225.7 mg PO DAILY 12/17/16 11/09/24 capsule,extended release 24 hr acetaminophen 325 mg tablet 650 mg PO PRN PRN 04/16/17 11/09/24 (Tylenol) omeprazole 40 mg capsule,delayed 40 cap PO HS 12/29/21 11/09/24 release bupropion HCl 100 mg tablet,12 hr 150 mg PO DAILY 03/18/23 11/09/24 sustained-release (Wellbutrin SR) lamotrigine 150 mg tablet 150 mg PO QHS 10/23/24 11/09/24 (Lamictal) rosuvastatin 5 mg tablet 5 mg PO DAILY 10/23/24 11/09/24 trazodone 150 mg tablet 150 mg PO QHS 10/23/24 11/09/24 cyclobenzaprine 10 mg tablet 10 mg PO TID PRN #20 tabs 11/09/24 lidocaine 5 % topical patch 1 patch topical DAILY #30 ea 11/09/24 ondansetron 4 mg disintegrating 4 mg PO Q8H PRN nausea and 11/09/24 tablet vomiting #20 tabs prednisone 20 mg tablet 60 mg (3 x 20 mg) PO DAILY 4 days 11/09/24 #12 tabs Previous Rx's ?Medication ?Instructions ?Recorded cyclobenzaprine 10 mg tablet 10 mg PO TID PRN #20 tabs 11/09/24 lidocaine 5 % topical patch 1 patch topical DAILY #30 ea 11/09/24 ondansetron 4 mg disintegrating 4 mg PO Q8H PRN nausea and 11/09/24 tablet vomiting #20 tabs prednisone 20 mg tablet 60 mg (3 x 20 mg) PO DAILY 4 days 11/09/24 #12 tabs Allergies Allergy/AdvReac Type Severity Reaction Status Date / Time Penicillins Allergy Severe Swelling Verified 11/09/24 20:34 in throat granda flavor Allergy Intermediate throat Verified 11/09/24 20:34 bleeds,swelling kiwi Allergy Intermediate throat Verified 11/09/24 20:34 swells latex Allergy Mild rash,swelli Verified 11/09/24 20:34 ng aspirin AdvReac Intermediate stomach Verified 11/09/24 20:34 pain naproxen AdvReac Intermediate Nausea Verified 11/09/24 20:34 sumatriptan (From Imitrex) AdvReac Mild Makes Verified 11/09/24 20:34 headache worse wool Allergy Mild Skin Rash Uncoded 11/09/24 20:34 General Stated Complaint: Nk/Back Pain IVAN: 3 Review of Systems All systems reviewed & are unremarkable except as noted in HPI and below Constitutional Constitutional: Denies chills, Denies fever(s) and Denies weakness Cardiovascular Cardiovascular: Denies chest pain and Denies dyspnea Respiratory Respiratory: Denies cough and Denies dyspnea Gastrointestinal Gastrointestinal: Reports abdominal pain, Reports diarrhea, Reports nausea and Reports vomiting Musculoskeletal Musculoskeletal: Reports back pain Neurologic Neurologic: Denies weakness Psychiatric Psychiatric: Denies depression Exam Const Orientation: alert HENMT Head: normal to inspection Ears: external ears normal General nose exam: external nose normal Mouth: moist mucous membranes Eyes General: appearance normal, both eyes and all related structures Neck Neck: normal visual inspection Resp Effort & Inspection: normal respiratory effort and able to speak in complete sentences Cardio Rate: regular rate GI Palpation: soft and tender Back/Spine/Pelvis Back: no CVA tenderness Skin General skin exam: no rashes or lesions noted Neuro General: patient alert and patient oriented x3 Extrem General: normal to inspection Psych Mental Status: mental status grossly normal Course Vital Signs Vital signs: Vital Signs Temperature 36.9 C 11/09/24 20:29 Pulse 79 11/09/24 20:29 Respiratory Rate 20 11/09/24 20:29 Blood Pressure 141/89 H 11/09/24 20:29 Pulse Oximetry 98 11/09/24 20:29 Temperature 36.9 C 11/09/24 20:29 Pulse 79 11/09/24 20:29 Respiratory Rate 20 11/09/24 20:29 Blood Pressure 141/89 H 11/09/24 20:29 Blood Pressure Position Sitting 11/09/24 20:29 Pulse Oximetry 98 11/09/24 20:29 Oxygen Delivery Method Room Air 11/09/24 20:29 Oxygen Flow Rate 0 11/09/24 20:29 Medical Decision Making 43-year-old female with a history of bipolar disorder, prior hysterectomy, comes in with 2 days of worsening left lower quadrant and left lower back pain. She says she is also nausea vomiting. She denies any fevers or IV drug use. She says at work she had diarrhea and she will do so. She is stable on arrival and has tenderness in the left lower quadrant, no distention of the abdomen. She also has left lower lumbar region tenderness. She has no saddle anesthesia and intact distal sensation and pulses in her legs. Given your lack of saddle anesthesia and also no history of IV drug use patient I doubt entities such as spinal epidural abscess or cauda equina. She has no rapidly progressing neurological deficits or paraplegia so doubt transverse myelitis and her symptoms seem more GI related with her nausea and vomiting as well as diarrhea. Given her lower left abdominal and back pain we will proceed with CBC, CMP, lipase and UA and also obtain a CT to evaluate for entities such as diverticulitis versus kidney stone. Imaging and lab work unremarkable. Patient feels improved and still has no deficits noted on exam. Has minimal left lower quadrant tenderness and no guarding. She urinated and had less than 10 cc in her bladder. Suspect that she could have a developing gastroenteritis, given her lower back pain also c ould have developing sciatica. She is unable to take NSAIDs due to sensitivity slightly and we will put her on a short course of prednisone. She states she has had success with muscle relaxers in the past for back pain so we will provide this as well. She is stable for discharge and will follow-up with her PCP and return precautions given. Differential Diagnosis Differential Diagnosis: Colitis, diverticulitis, kidney stone Lab Data Lab results reviewed: Yes I reviewed the patient's lab results. Quality:[facility] Health Related Social Needs: Health related social needs housing instability, house d, with risk of h omelessness (Z59.811), material hardship(utilities) (Z59.12), transportation insecurity (Z59.82) PFSH All Active Problems (Updated 11/09/24 @ 22:22 by Xavi Perez MD) Abdominal pain (Acute) Lumbar back pain (Acute) Back pain (Acute) Concussion syndrome (Acute) Pelvic deform NOS-unspec (Acute) abnormally hardened pelvic vessels Mucocele of lip (Acute) Chronic pelvic pain in female (Acute) Colitis (Acute) Nausea vomiting and diarrhea (Acute) Cephalgia (Acute) Medical History Fatty liver Chest pain of uncertain etiology Oral mucosal lesion Hoarseness Irritable bowel syndrome (IBS) History of tobacco abuse Depression Bipolar disorder Obesity Ventral hernia History of cannabis abuse Dizzy spells Cholecystitis GERD (gastroesophageal reflux disease) Restless leg syndrome Anxiety Migraine Surgical History History of left oophorectomy 07/10/22, left oophorectomy for pelvic pain. Abnormal hardened pelvic vessels noted. Status post appendectomy December 2021 - normal pathology H/O: hysterectomy S/P laparoscopic cholecystectomy (~11/25/20) History of umbilical hernia repair (~09/13/19) R wrist cyst removal 10/2002 Oophrectomy, Right (06/09/15) Laparoscopic RSO with L salpingectomy for R sided pelvic pain. R corpus luteum cyst. no pathology. Hysterectomy, Laproscopic (~11/2009) LAVH, ovarian conservation for dysmenorrhea EGD - MAC (12/16/16) Diagnostic Laproscopy [facility] bilateral ovarian cystectomies 11/2009. Diagnostic laparoscopy for chronic RLQ pain after LAVH in 2009. Tooth extraction 07/2014 wisdom teeth extraction Social History Smoking/Tobacco Use Status: Current every day Tobacco Type: cigarettes Tobacco: How many years used: 13 Quit status: not considering quitting Smoking risk assessment performed?: Yes Alcohol Intake: current Alcohol Intake frequency: holidays/special occasions only Alcohol type: beer, wine and hard liquor Drug use: Occasionally Substance use type: marijuana Housing: other Current gender identity: female Do you feel safe at home: Yes Do you feel safe in your relationship?: Yes Female Reproductive History Menstrual control method: permanent sterilization History History 2 Para 2 Hx # Term Pregnancies Multiple births Hx # Pregnancies Ectopic pregnancies AB induced Hx Number of Living Children AB spontaneous Past Pregnancies Del. Date GA/Weeks # Preg Succ Route Wgt Sex Labor Lgth Anesth esia Location Prov Complic 06/01/02 40 No Yes vaginal 3486.991 g Female Fabiano ramirez ID 09/13/07 40 No Yes vaginal 4082.331 g Male Malcom monsivais ID
[2024-11-09 20:56] LABS: Abs Immature Grans 0.02 10^3/uL (0.0-0.06); Absolute Basophil Count 0.06 10^3/uL (0.0-0.2); Absolute Eosinophil Count 0.06 10^3/uL (0.0-0.7); Absolute Lymphocyte Count 2.15 10^3/uL (1.2-3.4); Absolute Monocyte Count 0.41 10^3/uL (0.1-0.8); HCT 40.5 % (36.0-46.0); HGB 13.3 g/dL (11.2-15.7); Immature Grans % 0.3 %; Lymphocytes % 34.7 %; MCH 29.8 pg (27.0-33.0); MCHC 32.8 % (32.0-36.0); MCV 91 fL (80-95); MPV 10.1 fL (8.0-11.0); Monocytes % 6.6 %; Neutrophils % 56.4 %; Platelet Count 226 10^3/uL (130-400); RBC 4.47 10^6/uL (3.93-5.22); RDW 13.4 % (11.7-14.6); RDW-SD 44.7 fL
[2024-11-09] MEDS: HYDROmorphone 2 MG/ML SYR 1 MG IVP ×2 (20:56→22:26)
[2024-11-09] MEDS: Prochlorperazine 10 MG/2 ML VIAL IVP (20:56)
[2024-11-09] MEDS: Omnipaque 350 MG/ML 100 ML BTL IJ (21:05)
[2024-11-09] MEDS: Normal Saline Flush 10 ML SYR IVP (21:06)
[2024-11-09] MEDS: Normal Saline - Diluent 50 ML VIAL IJ (21:07)
[2024-11-09 21:12] LABS: ALT 44 U/L (14-59); AST 30 U/L (15-37); Albumin 4.1 g/dL (3.4-5.0); Alkaline Phosphatase 129 U/L (46-116); Anion Gap 6.5 mmol/L (3-11); BUN 8 mg/dL (7-18); Bilirubin, Direct 0.1 mg/dL (0.0-0.2); Bilirubin, Total 0.4 mg/dL (0.2-1.0); CO2 30.5 mmol/L (21.0-32.0); CREATININE 1.1 mg/dL (0.55-1.02); Calcium 9.4 mg/dL (8.5-10.1); Chloride 106 mmol/L (98-107); Estimated GFR 65.14 (mL/min/1.73m2); Glucose 82 mg/dL (74-106); Lipase 20 U/L (<78); Magnesium 1.9 mg/dL (1.8-2.4); Potassium 3.5 mmol/L (3.5-5.1); Sodium 143 mmol/L (136-145); Total Protein 7.7 g/dL (6.4-8.2)
--- NOTE | 2024-11-09 22:02 | DI.VRAD_ITS ---
PROCEDURE INFORMATION: Exam: CT Abdomen And Pelvis With Contrast Exam date and time: 11/09/2024 9:02 PM Age: 39 years old Clinical indication: Abdominal pain; Localized; Left lower quadrant (llq); Prior surgery; Surgery date: 6+ months; Surgery type: Hysterectomy, appendectomy, cholecystectomy; L lq pain and back pain TECHNIQUE: Imaging protocol: Computed tomography of the abdomen and pelvis with contrast. Radiation optimization: All CT scans at this facility use at least one of these dose optimization techniques: automated exposure control; mA and/or kV adjustment per patient size (includes targeted exams where dose is matched to clinical indication); or iterative reconstruction. Contrast material: OMNIPAQUE 350; Contrast volume: 75 ml; Contrast route: INTRAVENOUS (IV); COMPARISON: CT ABDOMEN PELVIS W 07/14/2023 4:55 PM FINDINGS: Lungs: Dependent atelectasis noted at the bases. Liver: A simple appearing cyst is again noted in the right hepatic lobe, unchanged in size measuring up to 3.0 cm. Gallbladder and biliary ducts: Normal. No calcified stones. No ductal dilation. Pancreas: No pancreatic lesion seen. Spleen: The spleen is unremarkable. No splenomegaly. No ductal dilation. Adrenal glands: The adrenal glands are unremarkable. No defined mass. Kidneys and ureters: Normal. No hydronephrosis. Stomach and bowel: Unremarkable. No obstruction. No mucosal thickening. Appendix: There has been an appendectomy. Intraperitoneal space: Unremarkable. No free air. No significant fluid collection. Vasculature: Unremarkable. No abdominal aortic aneurysm. Lymph nodes: Unremarkable. No enlarged lymph nodes. Urinary bladder: Unremarkable as visualized. Reproductive: There has been a hysterectomy No significant lumbar spine degenerative changes. Bones/joints: No acute fracture. Soft tissues: Unremarkable. IMPRESSION: No evidence of bowel obstruction or significant bowel inflammation. Dictated and Authenticated by: Nataliia Mota MD. Orderin Chris Hurley MD
--- NOTE | 2024-11-09 22:05 | DI.VRAD_ITS ---
PROCEDURE INFORMATION: Exam: CT Lumbar Spine Without Contrast Exam date and time: 11/09/2024 9:02 PM Age: 39 years old Clinical indication: Low back pain TECHNIQUE: Imaging protocol: Computed tomography of the lumbar spine without contrast. Radiation optimization: All CT scans at this facility use at least one of these dose optimization techniques: automated exposure control; mA and/or kV adjustment per patient size (includes targeted exams where dose is matched to clinical indication); or iterative reconstruction. COMPARISON: CT THORACIC LUMBAR SPINE WO 10/23/2024 1:24 PM FINDINGS: Bones/joints: No acute fracture. Normal alignment. No significant disc bulge or herniation. No severe spinal canal stenosis. No significant neural foraminal narrowing. Soft tissues: Unremarkable. IMPRESSION: No acute findings or evidence of significant degenerative changes. Dictated and Authenticated by: Nataliia Mota MD. Orderin Chris Hurley MD
[2024-11-09 22:13] LABS: Bilirubin Negative (Negative); Blood Negative (Negative); Clarity Clear (Clear); Glucose Negative (Negative); Ketones Negative (Negative); Leukocyte Esterase Negative (Negative); Nitrite Negative (Negative); Urobilinogen 0.2 mg/dL (Up to 0.2); pH 5.5 (5-8)
[2024-11-09] MEDS: predniSONE 20 MG TAB 60 MG PO (22:25)
[2024-11-09] MEDS: Lidocaine 5% Patch 1 PATCH TP (22:25)
[2024-11-09] MEDS: Cyclobenzaprine 10 MG TAB, 3 TABS/BTL PO (22:26)
== END 2024-11-09 22:47 | disposition home or self-care (01) ==
PROVIDERS: Emergency Provider Emergency Medicine; PCP Physician Assistant Medical
DX: M54.50 Low back pain, unspecified (principal); R10.32 Left lower quadrant pain; F17.210 Nicotine dependence, cigarettes, uncomplicated
CPT/HCPCS: 80053; 83690; 96361; 96374; 96375; 96376; 99285; 74177; 81003; 82248; 83735; 85025; J0780; J1171; J3490; J7512

== ENCOUNTER 2024-12-18 16:31 | Emergency (ER) | payer MEDICAID, SELFPAY ==
[2024-12-18] VITALS (8 sets, daily range): BP systolic 119–134; BP diastolic 83–93; PULSE 58–77; RESP 7–16; TEMP 36.9; O2SAT 92–100
--- NOTE | 2024-12-18 16:30 | RT.EKG_ITS ---
APPROVED REPORT Exam: Resting ECG Reason for Exam: chest pain Patient Location: E HR:68 bpm ECG Measurements Heart Rate 68 AXIS NJ 169 P 23 QRSd 93 QRS -11 QT 405 T 7 QTc 432 Conclusion Sinus rhythm, rate 68 No interval abnormalities T wave inversion lead III, V2, more apparent than prior No STEMI
--- NOTE | 2024-12-18 16:51 | ED.GENADUL_ITS ---
Discharge Plan Disposition Patient Disposition: Home Discharge Details Clinical Impression: Muscle spasm of right shoulder, Headache, Chest pain Primary Care Provider: German Campa ED Provider: Lula Barnhart Home Meds and New Rx's Prescriptions: No Action bupropion HCl [Wellbutrin SR] 100 mg tablet sustained-release 12 hr 150 mg PO DAILY ropinirole 1 MG tablet 2 mg PO HS omeprazole 40 mg capsule,delayed release(DR/EC) 40 cap PO HS Patient Comments: TAKE 1 CAPSULE BY MOUTH ONCE A DAY rosuvastatin 5 mg tablet 5 mg PO DAILY Patient Comments: TAKE ONE TABLET BY MOUTH EVERY DAY trazodone 150 mg tablet 150 mg PO QHS lamotrigine [Lamictal] 150 mg tablet 150 mg PO QHS lidocaine 5 % adhesive patch,medicated 1 patch topical DAILY Qty: 30 0RF Rx Instructions: leave on most painful area for up to 12 hrs venlafaxine 150 MG capsule,extended release 24hr 225.7 mg PO DAILY Rx Instructions: Being weaned down acetaminophen [Tylenol] 325 MG tablet 650 mg PO PRN PRN Discharge Instructions Additional Instructions: Please call your primary care provider first thing Friday to schedule follow-up appointment within the week. A referral to physical therapy may be helpful. Your workup today was very reassuring. As your symptoms fully resolved with treatment of your shoulder pain, the arm numbness was likely due to muscle spasm/pinched nerve. Continue to use lidocaine patches according to package instructions; Salonpas and IcyHot may good options. When you are not wearing lidocaine patches alternate heat and ice. Do not put heat or ice on top of lidocaine patches, as it may change absorption and pose significant risk. Continue to use Tylenol 650 mg every 6 hours for pain-it may be helpful to do this [id number]. Return to emergency care if you develop new significant chest pain, difficulty breathing, color change in your arm, extremity weakness, severe headache with concerning symptoms, or if you are very worried you need to be rechecked again immediately Referrals: German Campa PA [Primary Care Provider] - HPI General Date/Time Provider Initiated Documentation: 12/18/24 16:32 . HPI Narrative: Estrella is a 40 year old female who presents to the emergency department today for evaluation of all-over headache with R sided facial and arm numbness starting today accompanied by chills, foggy headedness, slightly blurry vision, lightheadedness, nausea, and sternal chest pressure with palpitations. She reports that she has had intermittent sternal chest pressure lasting hours to days starting 2 weeks ago, unable to identify any aggravating or relieving factors. She also reports she has had right shoulder pain for the last 2 to 3 weeks, worsened over the last day or two. No associated injury. Denies recorded fever, vision changes, runny nose, sore throat, cough, vomiting, change in p.o. intake, change in bowel or bladder function, gait disturbance. Does not have menstrual cycle secondary to total hysterectomy. No recent surgery, immobility, cancer diagnoses, calf swelling/redness/tenderness, or hormone use. No unusual weight loss. She does have a history of migraines, says that she usually takes Tylenol for them. Past medical history is significant for untreated HTN, HLD, tobacco use (vaping), total hysterectomy, chronic migraines. Denies recent medication changes, did miss a dose of venlafaxine 2 days ago, but took her dose last night Physical exam reassuring. Estrella is alert and oriented, no acute distress. Significant tenderness with palpation to R shoulder superior to the AC joint. Full painless range of motion to neck. No C-spine step- off/tenderness/deformity. Does admit to decrease sensation to her right cheek and no sensation to her right arm. Cranial nerves II through XII intact as tested. PERRL, EOMs intact. Clear voice, normal speech. Normal rapid alternating movements upper extremities. 5 out of 5 muscle strength upper and lower extremities. Easy work of breathing, lung sounds clear bilaterally. Normal heart sounds. No calf tenderness or swelling with palpation. No pedal edema. Radial pulses equal bilaterally, no color change to extremities. D/dx includes but is not limited to: Brachial plexus impingement, atypical migraine, electrolyte imbalance, GERD/esophagitis, pneumonia (unlikely), serotonin syndrome or other medication reaction. Low suspicion for ACS, HEART score 2 based on risk factors. History and presentation/lack of focal neurological findings not consistent with CVA/TIA, meningitis, encephalitis. PERC negative. I independently interpreted the following tests: EKG reassuring, normal sinus rhythm rate 68, normal intervals. Inverted T waves in V2 and V3 noted, new since 07/20/2023. No other changes consistent with acute ischemia. CBC, CMP, TSH, mag all reassuring. Serial troponins both less than 4. COVID/flu/RSV negative. While in the emergency department, Estrella received Tylenol and Toradol for pain control/headache. Famotidine given for possible GERD. Lidocaine patch provided for shoulder pain. On reassessment Estrella reports full resolution of headache and facial/arm numbness. I confirmed that sensation is intact to facial nerves and right arm to light touch. Overall workup today very reassuring. As lidocaine patch, Tylenol, ibuprofen fully resolved headache and numbness, symptoms likely related to headache/ pinched nerve. Unclear etiology of chest pain, however patient says that it improved with medications as well. Reviewed discharge instructions with patient, including symptomatic management and red flags indicating need for return to emergency care. Recommend close follow-up with PCP for PT eval and to discuss today's ED visit. Related Data Home Medications ?Medication ?Instructions ?Recorded ?Confirmed ropinirole 1 mg tablet 2 mg PO HS 06/08/15 12/18/24 venlafaxine 150 mg 225.7 mg PO DAILY 12/17/16 12/18/24 capsule,extended release 24 hr acetaminophen 325 mg tablet 650 mg PO PRN PRN 04/16/17 12/18/24 (Tylenol) omeprazole 40 mg capsule,delayed 40 cap PO HS 12/29/21 12/18/24 release bupropion HCl 100 mg tablet,12 hr 150 mg PO DAILY 03/18/23 12/18/24 sustained-release (Wellbutrin SR) lamotrigine 150 mg tablet 150 mg PO QHS 10/23/24 12/18/24 (Lamictal) rosuvastatin 5 mg tablet 5 mg PO DAILY 10/23/24 12/18/24 trazodone 150 mg tablet 150 mg PO QHS 10/23/24 12/18/24 lidocaine 5 % topical patch 1 patch topical DAILY #30 ea 11/09/24 12/18/24 Previous Rx's ?Medication ?Instructions ?Recorded lidocaine 5 % topical patch 1 patch topical DAILY #30 ea 11/09/24 Allergies Allergy/AdvReac Type Severity Reaction Status Date / Time Penicillins Allergy Severe Swelling Verified 12/18/24 16:37 in throat granda flavor Allergy Intermediate throat Verified 12/18/24 16:37 bleeds,swelling kiwi Allergy Intermediate throat Verified 12/18/24 16:37 swells latex Allergy Mild rash,swelli Verified 12/18/24 16:37 ng aspirin AdvReac Intermediate stomach Verified 12/18/24 16:37 pain naproxen AdvReac Intermediate Nausea Verified 12/18/24 16:37 sumatriptan (From Imitrex) AdvReac Mild Makes Verified 12/18/24 16:37 headache worse wool Allergy Mild Skin Rash Uncoded 12/18/24 16:37 General Stated Complaint: Chest Pain IVAN: 2 Review of Systems Narrative: see HPI Exam Const General: cooperative, healthy appearing, comfortable, no acute distress, well developed, well groomed and well hydrated Nutritional Appearance: average body habitus and well nourished Orientation: alert and oriented x3 HENMT Head: normal to inspection and atraumatic Ears: hearing grossly normal bilaterally General nose exam: external nose normal Face and sinus: normal facial exam Mouth: oral mucosae normal Throat: posterior oropharynx normal Neck Neck: normal visual inspection, full ROM and no lymphadenopathy Resp Effort & Inspection: normal respiratory effort and able to speak in complete sentences Auscultation: clear to auscultation bilaterally Cardio Jugular venous pressure: no JVD Rate: regular rate Rhythm: regular rhythm Pulses: radial pulses present Back/Spine/Pelvis Cervical Spine: normal cervical lordosis and cervical ROM normal Skin General skin exam: no rashes or lesions noted Trauma: no lacerations or abrasions Neuro General: patient alert, patient oriented x3, gait normal, tone normal, moves all extremities, no meningeal signs, no focal motor deficits and CN's II-XI intact bilaterally Cranial Nerves: CN's II-XI intact bilaterally, PERRL, EOM intact bilaterally, no nystagmus, facial strength normal, able to elevate shoulders bilaterally and other (reports decreased sensation to light touch on R cheek) Cognition: normal cognition Speech: speech normal Gait: normal gait Motor: muscle tone normal throughout and strength 5/5 throughout Sensory Exam: upper extremity right light-touch abnormal in the entire distribution; temperature sensation normal Coordination: [id number] test normal and rapid alternating movement UE normal Extrem General: normal to inspection, full ROM and capillary refill normal Right upper extremity: shoulder/upper arm Details: tenderness Location: of the A-C joint Course Vital Signs Vital signs: Vital Signs Temperature 36.9 C 12/18/24 16:32 Pulse 62 12/18/24 16:32 Respiratory Rate 16 12/18/24 16:32 Blood Pressure 119/90 12/18/24 16:32 Pulse Oximetry 97 12/18/24 16:32 Temperature 36.9 C 12/18/24 16:32 Pulse 62 12/18/24 16:32 Respiratory Rate 16 12/18/24 16:32 Blood Pressure 119/90 12/18/24 16:32 Pulse Oximetry 97 12/18/24 16:32 Oxygen Delivery Method Room Air 12/18/24 16:32 Oxygen Flow Rate 0 12/18/24 16:32 Pain Level 6 12/18/24 16:32 Medical Decision Making Imaging Data Radiologic Study: Radiologist's impression: PROCEDURE INFORMATION: Exam: XR Chest Exam date and time: 12/18/2024 5:47 PM Age: 39 years old Clinical indication: Chest wall pain; Additional info: Chest pain, dizziness TECHNIQUE: Imaging protocol: Radiologic exam of the chest. Views: 2 views. COMPARISON: CR XR PORTABLE CHEST AP 07/20/2023 6:55 PM FINDINGS: Lungs: Unremarkable. No consolidation. Pleural spaces: Unremarkable. No pleural effusion. No pneumothorax. Heart/Mediastinum: Unremarkable. No cardiomegaly. Bones/joints: Unremarkable. IMPRESSION: No evidence for acute abnormality in the chest. Quality:SDOH Health Related Social Needs: Health related social needs housing instability, house d, with risk of homelessness (Z59.811), material hardship(utilities) (Z59.12), transportation insecurity (Z59.82) PFSH All Active Problems (Updated 12/18/24 @ 18:32 by Lula Paul) Chest pain (Acute) Headache (Acute) Muscle spasm of right shoulder (Acute) Pelvic deform NOS-unspec (Acute) abnormally hardened pelvic vessels Mucocele of lip (Acute) Chronic pelvic pain in female (Acute) Colitis (Acute) Nausea vomiting and diarrhea (Acute) Cephalgia (Acute) Medical History Fatty liver Chest pain of uncertain etiology Oral mucosal lesion Hoarseness Irritable bowel syndrome (IBS) History of tobacco abuse Depression Bipolar disorder Obesity Ventral hernia History of cannabis abuse Dizzy spells Cholecystitis GERD (gastroesophageal reflux disease) Restless leg syndrome Anxiety Migraine Surgical History History of left oophorectomy 07/10/22, left oophorectomy for pelvic pain. Abnormal hardened pelvic vessels noted. Status post appendectomy December 2021 - normal pathology H/O: hysterectomy S/P laparoscopic cholecystectomy (~11/25/20) History of umbilical hernia repair (~09/13/19) R wrist cyst removal 10/2002 Oophrectomy, Right (06/09/15) Laparoscopic RSO with L salpingectomy for R sided pelvic pain. R corpus luteum cyst. no pathology. Hysterectomy, Laproscopic (~11/2009) LAVH, ovarian conservation for dysmenorrhea EGD - MAC (12/16/16) Diagnostic Laproscopy 2002 [facility] bilateral ovarian cystectomies 11/2009. Diagnostic laparoscopy for chronic RLQ pain after LAVH in 2009. Tooth extraction 07/2014 wisdom teeth extraction Social History Smoking/Tobacco Use Status: Current every day Tobacco Type: cigarettes Tobacco: How many years used: 13 Quit status: not considering quitting Smoking risk assessment performed?: Yes Alcohol Intake: current Alcohol Intake frequency: holidays/special occasions only Alcohol type: beer, wine and hard liquor Drug use: Occasionally Substance use type: marijuana Housing: other Current gender identity: female Do you feel safe at home: Yes Do you feel safe in your relationship?: Yes Female Reproductive History Menstrual control method: permanent sterilization History History 2 Para 2 Hx # Term Pregnancies Multiple births Hx # Pregnancies Ectopic pregnancies AB induced Hx Number of Living Children AB spontaneous Past Pregnancies Del. Date GA/Weeks # Preg Succ Route Wgt Sex Labor Lgth Anesth esia Location Prov Complic 06/01/02 40 No Yes vaginal 3486.991 g Female Fab[facility] ram[place] 09/13/07 40 No Yes vaginal 4082.331 g Male [place]
--- NOTE | 2024-12-18 17:00 | DI.RAD_ITS ---
Exam(s) XR CHEST 2V PA LATERAL EXAM: XR CHEST 2V PA LATERAL CLINICAL HISTORY: chest pain, dizziness TECHNIQUE: 2D digital imaging was performed. Two views. COMPARISON: CR XR PORTABLE CHEST AP from 07/20/2023 FINDINGS: HEART: Normal size. Aorta: Not dilated. PULMONARY VASCULATURE: Normal. MEDIASTINUM: Unremarkable. LUNGS: Clear. PLEURAL SPACE: No pleural effusion or pneumothorax. BONE:Unremarkable for age. SOFT TISSUES: Unremarkable. IMPRESSION: No acute abnormality. The preliminary [facility] report was reviewed. DATA REPOSITORY: RADIATION DOSE DELIVERED:
[2024-12-18] MEDS: Famotidine 20 MG/2 ML VIAL IVP (17:18)
[2024-12-18] MEDS: Ketorolac 15 MG/ML VIAL IVP (17:18)
[2024-12-18] MEDS: Acetaminophen 500 MG TAB 1000 MG PO (17:18)
[2024-12-18] MEDS: Lidocaine 5% Patch 1 PATCH TP (17:19)
[2024-12-18 17:30] LABS: Abs Immature Grans 0.01 10^3/uL (0.0-0.06); Absolute Basophil Count 0.05 10^3/uL (0.0-0.2); Absolute Eosinophil Count 0.06 10^3/uL (0.0-0.7); Absolute Lymphocyte Count 1.93 10^3/uL (1.2-3.4); Absolute Monocyte Count 0.33 10^3/uL (0.1-0.8); Absolute Neutrophil Count 2.58 10^3/uL (1.2-6.7); Eosinophils % 1.2 %; HCT 40.1 % (36.0-46.0); HGB 12.9 g/dL (11.2-15.7); Immature Grans % 0.2 %; Lymphocytes % 38.9 %; MCH 29.3 pg (27.0-33.0); MCHC 32.2 % (32.0-36.0); MCV 91 fL (80-95); MPV 10.7 fL (8.0-11.0); Monocytes % 6.7 %; Platelet Count 220 10^3/uL (130-400); RBC 4.41 10^6/uL (3.93-5.22); RDW 12.9 % (11.7-14.6); RDW-SD 43.2 fL; WBC 4.96 10^3/uL (4.4-10.8)
[2024-12-18 17:56] LABS: ALT 31 U/L (14-59); AST 20 U/L (15-37); Albumin 3.6 g/dL (3.4-5.0); Alkaline Phosphatase 126 U/L (46-116); Anion Gap 3.6 mmol/L (3-11); BUN 13 mg/dL (7-18); Bilirubin, Total 0.3 mg/dL (0.2-1.0); CO2 32.4 mmol/L (21.0-32.0); CREATININE 1.2 mg/dL (0.55-1.02); Chloride 106 mmol/L (98-107); Estimated GFR 58.69 (mL/min/1.73m2); Glucose 83 mg/dL (74-106); Magnesium 1.8 mg/dL (1.8-2.4); Potassium 4.1 mmol/L (3.5-5.1); Sodium 142 mmol/L (136-145); TSH (W/Ref FT4) 3.34 uIU/mL (0.36-3.74); Total Protein 6.8 g/dL (6.4-8.2)
--- NOTE | 2024-12-18 17:57 | DI.[facility]_ITS ---
PROCEDURE INFORMATION: Exam: XR Chest Exam date and time: 12/18/2024 5:47 PM Age: 39 years old Clinical indication: Chest wall pain; Additional info: Chest pain, dizziness TECHNIQUE: Imaging protocol: Radiologic exam of the chest. Views: 2 views. COMPARISON: CR XR PORTABLE CHEST AP 07/20/2023 6:55 PM FINDINGS: Lungs: Unremarkable. No consolidation. Pleural spaces: Unremarkable. No pleural effusion. No pneumothorax. Heart/Mediastinum: Unremarkable. No cardiomegaly. Bones/joints: Unremarkable. IMPRESSION: No evidence for acute abnormality in the chest. Dictated and Authenticated by: Becky Rivera MD. Orderin Jessie Cotton MD
[2024-12-18 18:02] LABS: Troponin I < 4 ng/L (<or=51)
[2024-12-18 18:54] LABS: Troponin I < 4 ng/L (<or=51)
--- NOTE | 2024-12-19 10:04 | NUR.NOTE ---
Nursing Note: Pt called requesting a work note so she can return to work tomorrow. 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
== END 2024-12-18 19:10 | disposition home or self-care (01) ==
PROVIDERS: Emergency Provider Nurse Practitioner Family; PCP Physician Assistant Medical
DX: R07.9 Chest pain, unspecified (principal); R51.9 Headache, unspecified; M62.838 Other muscle spasm; F17.210 Nicotine dependence, cigarettes, uncomplicated
CPT/HCPCS: 36415; 80053; 87426; 93005; 96374; 96375; 99284; 71046; 83735; 84443; 84484; 85025; 93010; J1885

== ENCOUNTER 2025-02-22 12:47 | Outpatient (REF) | payer MEDICAID, SELFPAY ==
[2025-02-22 16:30] LABS: Anion Gap 3.1 mmol/L (3-11); BUN 14 mg/dL (7-18); CO2 31.9 mmol/L (21.0-32.0); Calcium 8.8 mg/dL (8.5-10.1); Calculated LDL 74 mg/dL (<100); Chloride 108 mmol/L (98-107); Cholesterol 149 mg/dL (<200); Estimated GFR 64.74 (mL/min/1.73m2); Glucose 93 mg/dL (74-106); HDL Cholesterol 48 mg/dL (>or=50); Potassium 4.6 mmol/L (3.5-5.1); Sodium 143 mmol/L (136-145); Triglyceride 135 mg/dL (<150)
== END 2025-02-22 12:48 | disposition home or self-care (01) ==
LOC: NCHCN 12:47
PROVIDERS: PCP Physician Assistant Medical; Visit Provider Physician Assistant Medical
DX: E78.5 Hyperlipidemia, unspecified (principal); R79.89 Other specified abnormal findings of blood chemistry
CPT/HCPCS: 80048; 80061

== ENCOUNTER 2025-05-01 13:21 | Emergency (ER) | payer MEDICAID, SELFPAY ==
[2025-05-01] VITALS (32 sets, daily range): BP systolic 118–145; BP diastolic 90–110; PULSE 64–88; RESP 11–26; TEMP 36.7; O2SAT 93–97
[2025-05-01 14:00] LABS: Glucose Negative (Negative)
--- NOTE | 2025-05-01 14:00 | DI.RAD_ITS ---
Exam(s) XR SHOULDER RT COMPLETE 2+V EXAM: XR SHOULDER RT COMPLETE 2+V CLINICAL HISTORY: R shoulder pain, decreased ROM. TECHNIQUE: 2D digital imaging was performed. COMPARISON: No exams were available for comparison FINDINGS: Five views No evidence fracture or dislocation nor abnormal soft tissue calcifications. Subacromial space appears unremarkable. There are no degenerative changes in the glenohumeral joint. Mild degenerative changes in the AC joint. Clavicle otherwise unremarkable. Bone density normal. No osseous lesions IMPRESSION: No significant radiograph findings in the right shoulder. DATA REPOSITORY: RADIATION DOSE DELIVERED:
--- NOTE | 2025-05-01 14:10 | W.ED.GENAD ---
Discharge Plan Disposition Patient Disposition: Home Condition: Good Discharge Details Clinical Impression: Pain in right shoulder, Chronic lower back pain Primary Care Provider: German Campa ED Provider: Lula Barnhart Home Meds and New Rx's Prescriptions: New methocarbamol 500 mg tablet 1,000 mg PO Q8H 5 Days Qty: 30 0RF prednisone 20 mg tablet 60 mg PO DAILY 5 Days Qty: 15 0RF No Action bupropion HCl [Wellbutrin SR] 100 mg tablet sustained-release 12 hr 150 mg PO DAILY ropinirole 1 MG tablet 2 mg PO HS omeprazole 40 mg capsule,delayed release(DR/EC) 40 cap PO HS Patient Comments: TAKE 1 CAPSULE BY MOUTH ONCE A DAY rosuvastatin 5 mg tablet 5 mg PO DAILY Patient Comments: TAKE ONE TABLET BY MOUTH EVERY DAY trazodone 150 mg tablet 150 mg PO QHS lamotrigine [Lamictal] 150 mg tablet 150 mg PO QHS lidocaine 5 % adhesive patch,medicated 1 patch topical DAILY Qty: 30 0RF Rx Instructions: leave on most painful area for up to 12 hrs venlafaxine 150 MG capsule,extended release 24hr 225.7 mg PO DAILY Rx Instructions: Being weaned down acetaminophen [Tylenol] 325 MG tablet 650 mg PO PRN PRN Discharge Instructions Additional Instructions: Please call your primary care provider first thing in the morning to schedule follow-up appointment in the next couple of days for reassessment and management of your chronic pain. There is no acute abnormality noted on shoulder x-ray. I recommend that you be evaluated by physical therapy for soft tissue injury such as rotator cuff or labral tear. For pain control I recommend that you continue to use the muscle relaxers, muscle rubs, heat/ice, lidocaine patches (on your shoulder, not to be used with heat or ice overlying), Tylenol, and the prescribed prednisone. Gentle massage and gentle exercises may also be helpful. Return to emergency care if you develop fevers associated with back pain, numbness in your underwear area, change in bowel/bladder function (inability to empty bladder, loss of bladder/bowel control), leg weakness or numbness, or if you are very worried and need to be rechecked again immediately. Referrals: German Campa PA [Primary Care Provider, Medicine] Discharge Data Discharge Date/Time-TO BE ENTERED AT DEPARTURE: 05/01/25 17:20 HPI General Date/Time Provider Initiated Documentation: 05/01/25 13:31. HPI Narrative: Estrella is a 40 year old female who presents to the emergency dept for evaluation of chronic right shoulder and lower back pain. She reports severe lower back pain, worsening over several years, radiating down both legs, and associated with leg swelling with prolonged standing. She says that the pain is consistent with her baseline, however has become more frequent recently without new symptoms. Pain shoots up her spine as well as down both legs. She has been diagnosed with protruding disc and disc deterioration. She reports that she recently moved to a second floor apartment, is now having to walk up stairs. This corresponds with increase in her symptoms. Denies fever/chills, congestion, sore throat, cough, chest pain, shortness of breath, abdominal pain, change in p.o. intake, change in bowel or bladder function, leg weakness, change in gait. Does have history of constipation, has not taken any stool softeners for She also reports right shoulder pain that is associated with a pulling and burning sensation that has been ongoing for a couple of months. Not sure if she has had this worked up before. No distal numbness/tingling, weakness to the arm or hand. No known trauma. She is right-handed. PMH: Bipolar disorder with manias (has tolerated prednisone in the past), herniated disc, GERD PAST SURGICAL HISTORY: Last ovary, gallbladder, and appendix removed in 2022. Related Data Home Medications ?Medication ?Instructions ?Recorded ?Confirmed ropinirole 1 mg tablet 2 mg PO HS 06/08/15 05/01/25 venlafaxine 150 mg 225.7 mg PO DAILY 12/17/16 05/01/25 capsule,extended release 24 hr acetaminophen 325 mg tablet 650 mg PO PRN PRN 04/16/17 05/01/25 (Tylenol) omeprazole 40 mg capsule,delayed 40 cap PO HS 12/29/21 05/01/25 release bupropion HCl 100 mg tablet,12 hr 150 mg PO DAILY 03/18/23 05/01/25 sustained-release (Wellbutrin SR) lamotrigine 150 mg tablet 150 mg PO QHS 10/23/24 05/01/25 (Lamictal) rosuvastatin 5 mg tablet 5 mg PO DAILY 10/23/24 05/01/25 trazodone 150 mg tablet 150 mg PO QHS 10/23/24 05/01/25 lidocaine 5 % topical patch 1 patch topical DAILY #30 ea 11/09/24 05/01/25 methocarbamol 500 mg tablet 1,000 mg (2 x 500 mg) PO Q8H 5 05/01/25 days #30 tabs prednisone 20 mg tablet 60 mg (3 x 20 mg) PO DAILY 5 days 05/01/25 #15 tabs Previous Rx's ?Medication ?Instructions ?Recorded lidocaine 5 % topical patch 1 patch topical DAILY #30 ea 11/09/24 methocarbamol 500 mg tablet 1,000 mg (2 x 500 mg) PO Q8H 5 05/01/25 days #30 tabs prednisone 20 mg tablet 60 mg (3 x 20 mg) PO DAILY 5 days 05/01/25 #15 tabs Allergies Allergy/AdvReac Type Severity Reaction Status Date / Time Penicillins Allergy Severe Swelling Verified 05/01/25 13:38 in throat granda flavor Allergy Intermediate throat Verified 05/01/25 13:38 bleeds,swelling kiwi Allergy Intermediate throat Verified 05/01/25 13:38 swells latex Allergy Mild rash,swelli Verified 05/01/25 13:38 ng aspirin AdvReac Intermediate stomach Verified 05/01/25 13:38 pain naproxen AdvReac Intermediate Nausea Verified 05/01/25 13:38 sumatriptan (From Imitrex) AdvReac Mild Makes Verified 05/01/25 13:38 headache worse wool Allergy Mild Skin Rash Uncoded 05/01/25 13:38 General Stated Complaint: Nk/Back Pain IVAN: 3 Exam Narrative Exam Narrative: General Appearance: Normal. Patient alert and oriented, appears uncomfortable Vital signs: Within normal limits. Respiratory: Easy work of breathing, speaking full sentences Gastrointestinal: Abdomen soft, non-tender, no palpable masses. Back, Musculoskeletal: Limited range of motion in right shoulder with pain on abduction and lateral movement, tenderness with palpation all over shoulder, including trapezius muscle. No C-spine or T-spine step-off/tenderness/deformity. Diffuse midline tenderness along lumbar spine and paraspinal muscles. Skin: Warm and dry, no rash. Neurological: Alert and oriented. Cranial nerves II-XII intact. Motor strength 5/5 in bilateral upper and lower extremities. Sensation intact bilaterally. No focal neurological deficits. Normal gait. Negative straight leg test bilaterally Psychiatric: Normal. Course Vital Signs Vital signs: Vital Signs Temperature 36.7 C 05/01/25 13:35 Pulse 79 05/01/25 13:35 Respiratory Rate 18 05/01/25 13:35 Blood Pressure 124/90 05/01/25 13:35 Pulse Oximetry 94 05/01/25 13:35 Temperature 36.7 C 05/01/25 13:35 Pulse 79 05/01/25 13:35 Pulse 75 05/01/25 14:02 Respiratory Rate 15 05/01/25 14:02 Blood Pressure 124/90 05/01/25 13:35 Pulse Oximetry 94 05/01/25 13:35 Pain Level 7 05/01/25 13:59 Lab/Test Results Lab/Test Results: Laboratory Tests Range/Units 05/01/25 13:45 Urine Color (Yellow) Yellow Urine Clarity (Clear) Clear Urine pH (5-8) 5.5 Ur Specific [place] (1.005-1.025) 1.010 Urine Protein (Neg-Trace) mg/dL Negative Urine Ketones (Negative) mg/dL Negative Urine Blood (Negative) Negative Urine Nitrite (Negative) Negative Urine Bilirubin (Negative) Negative Urine Urobilinogen (Up to 0.2) mg/dL 0.2 Ur Leukocyte Esterase (Negative) Negative Urine Glucose (Negative) mg/dL Negative POC- Test(urine) Negative Medical Decision Making Initial Assessment: Severe lower back pain, worsening over 2-3 years, radiating up spine and causing leg swelling, no new features today, says has been increasing in frequency and severity. History of protruding disk and disk deterioration. Shoulder pain with limited range of motion and burning sensation. Occasional constipation. Lower back pain appears consistent with known chronic lower back pain attributed to herniated disc, no red flags concerning for cauda equina, spinal epidural abscess, or other serious etiology requiring emergent diagnostic imaging or labs at this time. She is agreeable with this plan, agrees that this is her usual back pain and does not require further workup. Right shoulder pain DDx includes was not limited to; frozen shoulder, labral tear, rotator cuff injury. No red flags concerning for neurovascular compromise or infectious etiology/septic joint. ED Course: -Intravenous Toradol administered for pain relief. - Robaxin provided insufficient pain relief with muscle relaxation, a single dose of Valium given. - Tylenol administered - Short course of prednisone initiated, as patient has tolerated this previously - Right shoulder x-ray performed, no acute abnormalities noted - Did offer gabapentin, which patient declined because it has not worked previously Patient reported some improvement of discomfort with medications, however, I advised her that follow-up with pain management and her PCP is necessary, as this is management of chronic pain due to known herniated disc. I did advise her that use of medication such as narcotics for chronic pain is associated with increased pain and significant risk, including addiction. Advise continue multimodal pain therapy, pain clinic appointment as scheduled, and close PCP follow-up for further evaluation/management. Clinical Impression: - Exacerbation of chronic lower back pain - Shoulder pain Reviewed discharge instructions with patient, including symptomatic management, multimodal pain therapy, importance of follow-up with PCP/pain management, and red flags indicate need for return to emergency care. She voices agreement with plan of care. Disposition: Follow-Up: Call primary care physician tomorrow. Follow-up appointment with pain management at [facility] [place] as scheduled for pain management. Patient Education: Reduce Tylenol intake to avoid liver damage. Take stool softeners to alleviate constipation and avoid straining. Patient consented to the use of [place] Imaging Data Radiologic Study: Radiologist's impression: Exam(s) XR SHOULDER RT COMPLETE 2+V EXAM: XR SHOULDER RT COMPLETE 2+V CLINICAL HISTORY: R shoulder pain, decreased ROM. TECHNIQUE: 2D digital imaging was performed. COMPARISON: No exams were available for comparison FINDINGS: Five views No evidence fracture or dislocation nor abnormal soft tissue calcifications. Subacromial space appears unremarkable. There are no degenerative changes in the glenohumeral joint. Mild degenerative changes in the AC joint. Clavicle otherwise unremarkable. Bone density normal. No osseous lesions IMPRESSION: No significant radiograph findings in the right shoulder. Quality:SDOH Health Related Social Needs: Health related social needs risk of homeless transpo insecurity material hardship PFSH All Active Problems (Updated 05/01/25 @ 16:57 by Lula Paul) Chronic lower back pain (Chronic) Pain in right shoulder (Acute) Pelvic deform NOS-unspec (Acute) abnormally hardened pelvic vessels Mucocele of lip (Acute) Chronic pelvic pain in female (Acute) Colitis (Acute) Nausea vomiting and diarrhea (Acute) Cephalgia (Acute) Medical History Fatty liver Chest pain of uncertain etiology Oral mucosal lesion Hoarseness Irritable bowel syndrome (IBS) History of tobacco abuse Depression Bipolar disorder Obesity Ventral hernia History of cannabis abuse Dizzy spells Cholecystitis GERD (gastroesophageal reflux disease) Restless leg syndrome Anxiety Migraine Surgical History History of left oophorectomy 07/10/22, left oophorectomy for pelvic pain. Abnormal hardened pelvic vessels noted. Status post appendectomy December 2021 - normal pathology H/O: hysterectomy S/P laparoscopic cholecystectomy (~11/25/20) History of umbilical hernia repair (~09/13/19) R wrist cyst removal 10/2002 Oophrectomy, Right (06/09/15) Laparoscopic RSO with L salpingectomy for R sided pelvic pain. R corpus luteum cyst. no pathology. Hysterectomy, Laproscopic (~11/2009) LAVH, ovarian conservation for dysmenorrhea EGD - [facility] (12/16/16) Diagnostic Laproscopy [facility] bilateral ovarian cystectomies 11/2009. Diagnostic laparoscopy for chronic RLQ pain after LAVH in 2009. Tooth extraction 07/2014 wisdom teeth extraction Social History Smoking/Tobacco Use Status: Current every day Tobacco Type: cigarettes Tobacco: How many years used: 13 Quit status: not considering quitting Smoking risk assessment performed?: Yes Alcohol Intake: current Alcohol Intake frequency: holidays/special occasions only Alcohol type: beer, wine and hard liquor Drug use: Occasionally Substance use type: marijuana Housing: other Current gender identity: female Do you feel safe at home: Yes Do you feel safe in your relationship?: Yes Female Reproductive History Menstrual control method: permanent sterilization History History 2 Para 2 Hx # Term Pregnancies Multiple births Hx # Pregnancies Ectopic pregnancies AB induced Hx Number of Living Children AB spontaneous Past Pregnancies Del. Date GA/Weeks # Preg Succ Route Wgt Sex Labor Lgth Anesthesia Location Prov Complic 06/01/02 40 No Yes vaginal 3486.991 g Female [place], [place] 02/17/08 40 No Yes vaginal 4082.331 g Male [place], [place]
[2025-05-01] MEDS: predniSONE 20 MG TAB 60 MG PO (14:26)
[2025-05-01] MEDS: Ketorolac 15 MG/ML VIAL IVP (14:26)
[2025-05-01] MEDS: Methocarbamol 500 MG TAB 1000 MG PO (14:59)
--- NOTE | 2025-05-01 15:19 | DI.VRAD_ITS ---
PROCEDURE INFORMATION: Exam: XR Right Shoulder Exam date and time: 05/01/2025 2:22 PM Age: 40 years old Clinical indication: Other: R shoulder pain, decreased rom TECHNIQUE: Imaging protocol: Radiologic exam of the right shoulder. Views: 2 or more views. COMPARISON: CR XR CHEST 2V PA LATERAL 12/18/2024 5:47 PM FINDINGS: Bones/joints: There are mild degenerative changes of the AC articulation with early hypertrophic spurring at the distal clavicular level. Bone density is appropriate. Alignment is anatomic. Soft tissues: Normal. IMPRESSION: No evidence for acute abnormality. Dictated and Authenticated by: Becky Rivera MD. Orderin Jessie Cotton MD
[2025-05-01] MEDS: Lidocaine 5% Patch 1 PATCH TP (17:17)
[2025-05-01] MEDS: diazePAM 5 MG TAB PO (17:17)
--- NOTE | 2025-05-02 09:00 | NUR.NOTE ---
Nursing Note: Received call from patient that she needs a work note to return to work on which is the next day she's scheduled. 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
--- NOTE | 2025-05-02 16:39 | NUR.NOTE ---
Access chart to determine if a referral had been put in on this patient. Nursing Note:
--- NOTE | 2025-05-02 17:01 | NUR.NOTE ---
Access chart to determine if a referral had been put in on this patient. Nursing Note:
== END 2025-05-01 17:20 | disposition home or self-care (01) ==
PROVIDERS: Emergency Provider Nurse Practitioner Family; PCP Physician Assistant Medical
DX: M54.50 Low back pain, unspecified (principal); M25.511 Pain in right shoulder; G89.29 Other chronic pain
CPT/HCPCS: 99284 ×2; 81025; 96374; 73030; 81003; J1885; J7512